=== PATIENT | male | born 1965 | race Caucasian/White ===

== ENCOUNTER 2023-04-14 14:25 | Outpatient (OUT) | payer OTHER, SELFPAY ==
--- NOTE | 2023-04-14 14:37 | XR_ITS ---
The [address] [address] Patient Name: GURVINDER CHAUDHRY MRN: [id number] date: 1965 Sex: M Assigned Patient Location: [facility] Current Patient Location: [facility] Accession/Order Number: [id number] Exam Date: 04/14/2023 14:37 Report Date: 04/14/2023 16:31 At the request of: ROS CM Procedure: XR ankle REJI min 3V EXAMINATION: XR ankle REJI min 3V, XR foot REJI min 3V HISTORY: BILATERAL ANKLE PAIN COMPARISON: No relevant comparison available. FINDINGS: RIGHT FINDINGS: BONES: No acute fracture or dislocation. Mild degenerative changes. Mild enthesopathic spurring plantar calcaneus SOFT TISSUES: Negative. No visible soft tissue swelling. OTHER: Negative. LEFT FINDINGS: BONES: No acute fracture or dislocation. Mild degenerative changes. Mild enthesopathic spurring plantar calcaneus SOFT TISSUES: Negative. No visible soft tissue swelling. OTHER: Negative. XR/XR ankle REJI min 3V IMPRESSION: RIGHT CONCLUSION: Mild degenerative changes LEFT CONCLUSION: Mild degenerative changes Electronically authenticated by: JOSIE DICKSON Date: 04/14/2023 16:31
--- NOTE | 2023-04-14 14:37 | XR_ITS ---
The [address] [address] Patient Name: GURVINDER CHAUDHRY MRN: [id number] date: 1965 Sex: M Assigned Patient Location: [facility] Current Patient Location: [facility] Accession/Order Number: [id number] Exam Date: 04/14/2023 14:37 Report Date: 04/14/2023 16:31 At the request of: ROS CM Procedure: XR foot REJI min 3V EXAMINATION: XR ankle REJI min 3V, XR foot REJI min 3V HISTORY: BILATERAL ANKLE PAIN COMPARISON: No relevant comparison available. FINDINGS: RIGHT FINDINGS: BONES: No acute fracture or dislocation. Mild degenerative changes. Mild enthesopathic spurring plantar calcaneus SOFT TISSUES: Negative. No visible soft tissue swelling. OTHER: Negative. LEFT FINDINGS: BONES: No acute fracture or dislocation. Mild degenerative changes. Mild enthesopathic spurring plantar calcaneus SOFT TISSUES: Negative. No visible soft tissue swelling. OTHER: Negative. XR/XR foot REJI min 3V IMPRESSION: RIGHT CONCLUSION: Mild degenerative changes LEFT CONCLUSION: Mild degenerative changes Electronically authenticated by: JOSIE DICKSON Date: 04/14/2023 16:31
== END 2023-04-14 14:26 | disposition home or self-care (01) ==
LOC: RAD 14:26
PROVIDERS: Visit Provider Podiatrist Foot & Ankle Surgery
DX: M25.572 Pain in left ankle and joints of left foot (principal); M25.571 Pain in right ankle and joints of right foot
CPT/HCPCS: 73610; 73630

== ENCOUNTER 2023-04-28 14:39 | Outpatient (OUT) | payer OTHER, SELFPAY ==
--- NOTE | 2023-04-28 15:27 | CT_ITS ---
The [address] [address] Patient Name: GURVINDER CAHUDHRY MRN: [facility]:[id number] date: 1965 Sex: M Assigned Patient Location: CT Current Patient Location: CT Accession/Order Number: [id number] Exam Date: 04/28/2023 15:32 Report Date: 04/29/2023 07:59 At the request of: ROS CM Procedure: CT ankle LT wo con EXAMINATION: CT ankle LT wo con HISTORY: Joint disorders, left ankle M25.872 COMPARISON: XR ankle bilateral 04/14/2023, CT ankle left 09/02/2021 TECHNIQUE: Multi-planar CT images were created without and/or with IV contrast according to examination type. Dose reduction techniques were achieved by using automated exposure control and/or adjustment of mA and/or kV according to patient size and/or use of iterative reconstruction technique. FINDINGS: BONES: No evidence of prior screw placement and removal within lateral malleolus. Tiny corticated ossification adjacent tip of lateral malleolus consistent with sequela of remote injury. No articular surface irregularity or significant joint space narrowing. Small subchondral cysts within the contiguous surfaces of the talus and medial cuneiform. SOFT TISSUES: Negative. No visible soft tissue swelling. EFFUSION: None visible. OTHER: Negative. CT/CT ankle LT wo con IMPRESSION: 1. Mild degenerative changes; grossly stable. 2. Stable remote surgical changes within lateral malleolus. Electronically authenticated by: SHERI ALEXANDRA Date: 04/29/2023 07:59
--- NOTE | 2023-04-28 15:27 | CT_ITS ---
[address] [address] Patient Name: GURVINDER CHAUDHRY MRN: [id number] date: 1965 Sex: M Assigned Patient Location: CT Current Patient Location: CT Accession/Order Number: [id number] Exam Date: 04/28/2023 15:32 Report Date: 04/29/2023 07:54 At the request of: ROS CM Procedure: CT ankle RT wo con EXAMINATION: CT ankle RT wo con HISTORY: Primary osteoarthritis, right ankle M19.072 ; chronic right ankle pain; surgery approximately 10 years ago COMPARISON: XR ankle bilateral 04/14/2023, CT ankle right 03/31/2021 TECHNIQUE: Multi-planar CT images were created without and/or with IV contrast according to examination type. Dose reduction techniques were achieved by using automated exposure control and/or adjustment of mA and/or kV according to patient size and/or use of iterative reconstruction technique. FINDINGS: BONES: Stable collection of small cysts within the lateral talar dome abutting the articular surface without appreciable disruption of the overlying articular surface. Subcortical cysts within tip of lateral malleolus and evidence of prior screw placement and removal. No fracture or dislocation. Tiny degenerative osteophyte along the anterior articular margin of the tibial plafond. Small corticated ossifications adjacent the tip of the medial malleolus favoring sequela of remote injury. SOFT TISSUES: Negative. No visible soft tissue swelling. EFFUSION: None visible. OTHER: Negative. CT/CT ankle RT wo con IMPRESSION: 1. Stable appearance of the talar dome subchondral cysts with possible prior repair of subchondral cyst. 2. Stable subcortical cysts and degenerative changes within lateral malleolus. 3. No acute bone abnormality. Electronically authenticated by: SHERI ALEXANDRA Date: 04/29/2023 07:54
== END 2023-04-28 14:40 | disposition home or self-care (01) ==
LOC: CT 14:40
PROVIDERS: PCP Family Medicine; Visit Provider Podiatrist Foot & Ankle Surgery
DX: M19.072 Primary osteoarthritis, left ankle and foot (principal); M19.071 Primary osteoarthritis, right ankle and foot; M25.872 Other specified joint disorders, left ankle and foot; R97.20 Elevated prostate specific antigen [PSA]; M25.871 Other specified joint disorders, right ankle and foot; M95.8 Other specified acquired deformities of musculoskeletal system; Z98.890 Other specified postprocedural states; M85.671 Other cyst of bone, right ankle and foot
CPT/HCPCS: 36415; 73700; 84153

== ENCOUNTER 2023-04-28 14:42 | Outpatient (OUT) | payer OTHER, SELFPAY ==
[2023-04-28 16:31] LABS: Prostate Specific Antigen Dx 6.75 ng/mL (<=4.00)
== END 2023-04-28 14:43 | disposition home or self-care (01) ==
LOC: LAB 14:43
PROVIDERS: PCP Family Medicine
DX: R97.20 Elevated prostate specific antigen [PSA] (principal)
CPT/HCPCS: 36415; 84153

== ENCOUNTER 2023-08-25 14:29 | Outpatient (OUT) | payer OTHER, SELFPAY ==
--- NOTE | 2023-08-25 15:21 | P.GSHP_ITS ---
History of Present Illness History of Present Illness Chief complaint: right ankle arthritis Narrative: Patient presents for preadmission testing. The patient reports right ankle pain. The patient states he's had multiple surgeries to both feet and ankles over the years and continues to have pain. He denies numbness, tingling, weakness, recent trauma or injury, or any other complaints. Review of Systems ROS Narrative REVIEW OF SYSTEMS: Negative except as stated in HPI, ten or more systems reviewed. Constitutional: No fever , chills, weakness ENT: No sore throat or epistaxis Cardiovascular: No edema, chest pain, palpitations, or activity intolerance Respiratory: No shortness of breath, cough, or wheezing Gastrointestinal: No abdominal pain, constipation, diarrhea, or vomiting Genitourinary: No dysuria or hematuria Neurological: No numbness, tingling, weakness, or headache Psychiatric: No mood changes [facility] Medical History (Updated 08/25/23 @ 15:20 by Tania Kinney NP) Impingement of right ankle joint ?M25.871 - Other specified joint disorders, right ankle and foot (ICD-10) Osteochondritis dissecans ?M93.20 - Osteochondritis dissecans of unspecified site (ICD-10) Ankle arthritis ?M19.079 - Primary osteoarthritis, unspecified ankle and foot (ICD-10) Migraine ?G43.909 - Migraine, unspecified, not intractable, without status migrainosus (ICD-10) Elevated PSA ?R97.20 - Elevated prostate specific antigen [PSA] (ICD-10) Kidney stones ?N20.0 - Calculus of kidney (ICD-10) High cholesterol ?E78.00 - Pure hypercholesterolemia, unspecified (ICD-10) Hypertension ?I10 - Essential (primary) hypertension (ICD-10) S/P extracorporeal shock wave therapy ?Z98.890 - Other specified postprocedural states (ICD-10) Prostate cancer (08/2023) ?C61 - Malignant neoplasm of prostate (ICD-10) Surgical History (Updated 08/25/23 @ 15:19 by Tania Kinney NP) Hx of prostate biopsy (~08/16/23) ?Z98.890 - Other specified postprocedural states (ICD-10) History of colonoscopy ?Z98.890 - Other specified postprocedural states (ICD-10) History of foot surgery ?Z98.890 - Other specified postprocedural states (ICD-10) History of ankle surgery ?Z98.890 - Other specified postprocedural states (ICD-10) Family History (Updated 08/25/23 @ 15:03 by Tania Kinney NP) Other Family history of hypertension Family history of stroke Social History (Updated 08/25/23 @ 14:58 by Tania Kinney NP) Within the past year, how often did you have a drink containing alcohol: 2-3 times a week Smoking status: Never smoker Non-prescribed substance use: denies use 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 Highest level of school completed/degree received: high school graduate Meds Home Medications and Allergies Home Medications Medication Instructions Recorded Confirmed Type allopurinol 100 mg tablet 100 mg PO DAILY 08/25/23 08/25/23 History aspirin 81 mg tablet,delayed 81 mg PO DAILY 08/25/23 08/25/23 History release (Adult Aspirin Regimen) cholecalciferol (vitamin D3) 25 1,000 unit PO DAILY 08/25/23 08/25/23 History mcg (1,000 unit) capsule lisinopril 20 1 tab PO DAILY 08/25/23 08/25/23 History mg-hydrochlorothiazide 25 mg tablet metoprolol succinate 50 mg 50 mg PO DAILY 08/25/23 08/25/23 History tablet,extended release 24 hr pitavastatin calcium 4 mg tablet 4 mg PO DAILY 08/25/23 08/25/23 History Allergies Allergy/AdvReac Type Severity Reaction Status Date / Time cephalexin [From Keflex] Allergy Hives Verified 08/25/23 14:54 Exam Narrative Exam Narrative: Constitutional: Awake, alert, comfortable, well-appearing, nontoxic, interactive, vital signs as charted Head: Normocephalic, atraumatic Neck: Supple, normal appearance, normal range of motion, no meningeal signs, no lymphadenopathy Respiratory: No respiratory distress, breath sounds clear Cardiovascular: Regular rate and rhythm, strong and regular heart tones Musculoskeletal: Diffuse right ankle tenderness with palpation, limited range of motion due to pain, good capillary refill, sensation intact Skin: No rashes or induration, no lesions, only visible skin inspected Neuro: No neurological deficits, normal sensation Psychiatric: Oriented ?3, normal affect Assessment and Plan Assessment and Plan (1) Impingement of right ankle joint: (2) Osteochondritis dissecans: (3) Ankle arthritis: Plan Right total talus replacement with 3-D printed talus, secondary ankle ligament repair, EPF scheduled with Dr. Caldera 09/06/2023.
[2023-08-25 15:28] LABS: Bilirubin Urine NEGATIVE (NEGATIVE); Blood Urine NEGATIVE (NEGATIVE); Clarity Urine CLEAR (CLEAR); Color Urine LT. YELLOW (YELLOW); Glucose Urine UA NEGATIVE (NEGATIVE); Ketones Urine NEGATIVE (NEGATIVE); Leukocyte Esterase Urine NEGATIVE (NEGATIVE); Nitrite Urine NEGATIVE (NEGATIVE); Protein Urine NEGATIVE (NEG/TRACE); Urobilinogen Urine 0.2 EU/dL (0.2-1.0); pH Urine 6.5 (5.0-9.0)
[2023-08-25 15:36] LABS: Anion Gap 10.1; Calcium 8.9 mg/dL (8.5-10.1); Carbon Dioxide 30.6 mmol/L (21.0-32.0); Chloride 102 mmol/L (98-107); Estimated GFR (African America >60 (>=60); Estimated GFR (Non-African Ame >60 (>=60); Glucose 139 mg/dL (74-106); Potassium 3.7 mmol/L (3.5-5.1); Sodium 139 mmol/L (136-145)
== END 2023-08-25 14:30 | disposition home or self-care (01) ==
LOC: PST 14:29
PROVIDERS: PCP Family Medicine; Visit Provider Podiatrist Foot & Ankle Surgery
DX: Z01.812 Encounter for preprocedural laboratory examination (principal); M19.071 Primary osteoarthritis, right ankle and foot; M25.871 Other specified joint disorders, right ankle and foot
CPT/HCPCS: 80048; 81003; 85610; 85730; 87081; 87086; G0463

== ENCOUNTER 2023-09-10 11:35 | Observation (INO) | payer OTHER, SELFPAY ==
[2023-08-25 15:14] VITALS: BP 139/81; PULSE 88; RESP 20; TEMP 36.2; O2SAT 96; BMI 34.8
[2023-09-10] VITALS (28 sets, daily range): BP systolic 112–145; BP diastolic 69–93; PULSE 73–102; RESP 5–20; TEMP 35.9–37; O2SAT 88–97; BMI 33.5; BMI 76.9
--- NOTE | 2023-09-10 | FL_ITS ---
[address] [address] Patient Name: GURVINDER CHAUDHRY MRN: [id number] date: 1965 Sex: M [facility]igned [facility] Current Patient Location: [facility] Accession/Order Number: [id number] Exam Date: 09/10/2023 08:15 Report Date: 09/10/2023 11:16 At the request of: ROS CM Procedure: FL fluoroscopy <1hr NON-READ EXAM: FL fluoroscopy <1hr NON-READ HISTORY: Right ankle reconstruction TECHNIQUE: FINDINGS: Please see Operative Report. Electronically authenticated by: RADIOLOGIST NO Date: 09/10/2023 11:16
--- OUTSIDE RECORDS SUMMARY | 2023-09-10 06:06 | XMS_ITS | CCD ---
Author Name Unknown Address [address] [place] [address] Organization [facility] Care Team Providers Care Etcher Photoengraving Name Role Phone DEV CH Unavailable Unavailable QUIN ROBISON Unavailable Unavailabl e PHYSICIAN, DEFAULT Unavailable Unavailable PHYSICIAN, DEFAULT Unavailable Unavailable DEV CH Unavailable Unavailable ROS CM Admitting Unavailable HIGHLANDER, ROS Smith Attending Unavailable ROS CM Consulting Unavailable ROS CM Admitting Unavailable TOI, ROS Smith Attending Unavailable JAIR CARPENTER Admitting Unavailable JAIR CARPENTER Attending Unavailable DEV CH Primary Care Unavailable MISSAEL TEJADA Attending Unavailable MISSAEL TEJADA Admitting Unavailable Eli Santos Attending Unavailable Dev Ch Primary Care Unavailable Eisenstein, Eli Admitting Unavailable EisensteinEli Attending Unavailable Dev Ch Primary Care Unavailable Eisenstein, Eli Admitting Unavailable Dev Ch Primary Care Unavailable Allergies Allergy Classification Reported Allergen(s) Allergy Type Date of Onset Reaction(s) Facility (3 sources) cephalexin; Translations: [Keflex] Drug Allergy 09-20-2009 AOF [facility] Repository Problems Active Problems Problem Classification Problem Date Documented Da te Episodic/Chronic Other screening for suspected conditions (not mental disorders or infectious disease) (1 source) Elevated prostate specific antigen [PSA]; Translations: [Elevated prostate specific antigen (PSA)] Onset: 08-16-2023 Episodic Past or Other Problems Problem Classification Problem Date Documented Da te Episodic/Chronic Headache, including migraine (1 source) Headache; Translations: [Headache] Onset: 08-28-2017 Episodic Results Test Name Value Interpretation Reference Range Facility Consent Formson 09-06-2023 Consent Forms [id number]#1.00OTG [facility] Stress Teston 09-06-2023 Stress Test [id number]#1.00OTG [facility] NM Myocardial Spect Multi Re st/Stresson 09-03-2023 NM Myocardial Spect Multi Rest/Stress EXAMINATION: NM Myocardial Spect Multi Rest/Stress HISTORY: Abnormal electrocardiogram [ECG] [EKG] COMPARISON: No relevant comparison available. TECHNIQUE: Imaging obtained approximately one hour post radiopharmaceutical administration. FINDINGS: End diastolic volume: 93 mL End-systolic volume: 25 mL Left ventricular ejection fraction: 73% Transient ischemic dilation ratio: 1.11 Planar imaging demonstrates a small area of mildly decreased uptake identified in the basal inferioseptal segment on stress images, stable on rest images IMPRESSION: Small fixed defect with no evidence of reversible ischemia Exercise test results are dictated separately Final Dictated by: Obie Garcia MD, V. Dictated DT/TM: 09/03/23 11:40 Signed (Electronic Signature): Obie Garcia MD, V. 09/03/23 11:43 a Technologist: [facility] Provider Orderson 09-03-2023 Provider Orders [id number]#1.00OT [facility] Provider Orderson 09-02-2023 Provider Orders [id number]#1.00OTGT [facility] Provider Orders [id number]#1.00OT [facility] Consent Formson 08-24-2023 Consent Forms [id number]#1.00OTGT [facility] Surgical Pathology Reporton 08-16-2023 Surgical Pathology Report (NOTE) Path Number: [id number] -- Diagnosis -- A. PROSTATE, LEFT APEX LATERAL, NEEDLE BIOPSY: Benign prostate tissue. B. PROSTATE, AREA OF INTEREST, NEEDLE BIOPSY: Benign prostate tissue. C. PROSTATE, RIGHT BASE MEDIAL, NEEDLE BIOPSY: Benign prostate tissue. D. 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 E. PROSTATE, RIGHT MID MEDIAL, NEEDLE BIOPSY: Benign prostate tissue. F. PROSTATE, RIGHT MID LATERAL, NEEDLE BIOPSY: Benign prostate tissue. G. PROSTATE, RIGHT APEX MEDIAL, NEEDLE BIOPSY: Benign prostate tissue. H. PROSTATE, RIGHT APEX LATERAL, NEEDLE BIOPSY: Benign prostate tissue. I. PROSTATE, LEFT BASE MEDIAL, NEEDLE BIOPSY: Benign prostate tissue. J. PROSTATE, LEFT BASE LATERAL, NEEDLE BIOPSY: Benign prostate tissue. K. PROSTATE, LEFT MID MEDIAL, NEEDLE BIOPSY: Benign prostate tissue. L. PROSTATE, LEFT MID LATERAL, NEEDLE BIOPSY: Benign prostate tissue. M. PROSTATE, LEFT APEX MEDIAL, NEEDLE BIOPSY: Benign prostate tissue. -- Diagnosis Comment -- Part D is reviewed by a second Pathologist who concurs with the diagnosis (OSMANY). Riccardo Hutson. Electronically Signed Out 08/19/2023 Clinical Information Pre-op Diagnosis: ELEVATED PSA Operative Findings: PROSTATE BIOPSY X13 Operation Performed: PROSTATE BIOPSY FUSION kb Source of Specimen A: LEFT APEX LATERAL B: AREA OF INTEREST C: RIGHT BASE MEDIAL D: RIGHT BASE LATERAL E: RIGHT MID MEDIAL F: RIGHT MID LATERAL G: RIGHT APEX MEDIAL H: RIGHT APEX LATERAL I: LEFT BASE MEDIAL J: LEFT BASE LATERAL K: LEFT MID MEDIAL L: LEFT MID LATERAL M: LEFT APEX MEDIAL Gross Description GURVINDER CHAUDHRY, PROSTATE BIOPSIES All specimens are received in formalin on sponges and are estrada-white needle core biopsies less than < 0.1 cm in diameter with the following lengths: A. LEFT APEX LATERAL One core, 1.4 cm in length. Entirely 1cs. B. AREA OF INTEREST Three cores, 0.5, 1.1 and 1.6 cm in length. Entirely 2cs. C. RIGHT BASE MEDIAL One core, 1.8 cm in length. Entirely 1cs. D. RIGHT BASE LATERAL One core, 1.3 cm in length. Entirely 1cs. E. RIGHT MID MEDIAL One core, 1.5 cm in length. Entirely 1cs. F. RIGHT MID LATERAL One core, 1.7 cm in length. Entirely 1cs. G. RIGHT APEX MEDIAL One core, 1.7 cm in length. Entirely 1cs. H. RIGHT APEX LATERAL One core, 1.3 cm in length. Entirely 1cs. I. LEFT BASE MEDIAL One core, 1.5 cm in length. Entirely 1cs. J. LEFT BASE LATERAL One core, 1.3 cm in length. Entirely 1cs. K. LEFT MID MEDIAL One core, 1.7 cm in length. Entirely 1cs. L. LEFT MID LATERAL One core, 1.5 cm in length. Entirely 1cs. M. LEFT APEX MEDIAL One core, 2.2 cm in length. Entirely 1cs. jj tm SLS/kb2:08/17/2023 Microscopic Description A-M. Multiple GLORY-stained levels of each block of each part reviewed. Microscopic evaluation performed. Multiplex immunohistochemistry is performed to evaluate atypical small acinar proliferations in parts D and L. In part D, the atypical glands lack staining for basal epithelial markers, and are strongly positive for racemase. In part L, all glands maintain an intact basal epithelial marker that is positive for HMWCK and p63. Glands are negative for racemase. Controls are adequate. Processing Lab: [facility] [address] [place] [address] Interpretation Performed at [facility] [address] [place] [address] SURGICAL PATHOLOGY CONSULTATION Patient Name: GURVINDER CHAUDHRY [facility] Rec: [id number] [facility] ANATOMIC PATHOLOGY [address]. [place], [place] [address] Normal [facility] Standardon 07-15-2023 eGFR Non AA >60 Invalid Interpretation Code [facility] Comment on above: Performed By: #### 1 [id number], 3458423, [id number], 5771784, 5105925, 8683388, 8863140, 4455395 #### [facility] (DEFAULT) [address] [place] [address] 18870 eGFR AA >60 Invalid Interpretation Code [facility] Comment on above: Performed By: #### 1 [id number], 5300073, [id number], 1370766, 5942069, 6041380, 5638736, 7713387 #### [facility] (DEFAULT) [address] [place] [address] 49351 Albumin [Mass/Vol] 4.5 g/dL Normal 3.5-5.0 [facility] Comment on above: Performed By: #### 1 [id number], 5335960, 1069959126, 2523314, 5904047, 7991903, 9262290, 9780319 #### [facility] (DEFAULT) [address] [place] [address] 43929 Alk Phos 44 IU/L Normal 32-91 [facility] Comment on above: Performed By: #### 1 [id number], 5482420, [id number], 9567554, 3341802, 3409885, 5051541, 7566325 #### [facility] (DEFAULT) [address] [place] [address] 10943 ALT [Catalytic activity/Vol] 35.0 U/L Normal 17.0-63.0 [facility] Comment on above: Performed By: #### 1 [id number], 1697615, 2240688936, 0017676, 7288635, 4466042, 7084198, 8197334 #### [facility] (DEFAULT) [address] [place] [address] 11846 AST [Catalytic activity/Vol] 35 U/L Normal 15-41 [facility] Comment on above: Performed By: #### 1 [id number], 0765118, 1211586055, 1946614, 5096741, 5947435, 2739968, 2194624 #### [facility] (DEFAULT) [address] [place] [address] 36270 Bili Total 0.7 mg/dL Normal 0.3-1.2 [facility] Comment on above: Performed By: #### 1 [id number], 9547808, 9683656231, 6452468, 3596369, 9223253, 3026118, 6549516 #### [facility] (DEFAULT) [address] [place] [address] 12817 Calcium [Mass/Vol] 9.4 mg/dL Normal 8.9-10.3 [facility] Comment on above: Performed By: #### 1 [id number], 7963042, 2153755372, 3708860, 3114344, 7544237, 4497536, 4521723 #### [facility] (DEFAULT) [address] [place] [address] 55335 Chloride [Moles/Vol] 102 mmol/L Normal 101-111 [facility] Comment on above: Performed By: #### 1 [id number], 0710810, 8685979571, 7459932, 3210108, 7901562, 4985409, 2097480 #### [facility] (DEFAULT) [address] [place] [address] 64803 CO2 [Moles/Vol] 30 mmol/L Normal 21-32 [facility] Comment on above: Performed By: #### 1 [id number], 7930086, 0233129035, 4015940, 5454987, 8942738, 6215902, 5052956 #### [facility] (DEFAULT) [address] [place] [address] 28692 Creatinine [Mass/Vol] 1.15 mg/dL Normal 0.90-1.30 [facility] Comment on above: Performed By: #### 1 [id number], 5055604, 4226347480, 0839741, 9871416, 8234734, 1022912, 7209713 #### [facility] (DEFAULT) [address] [place] [address] 12720 Glucose [Mass/Vol] 88.0 mg/dL Normal 74.0-118.0 [facility] Comment on above: Performed By: #### 1 [id number], 7450655, 1195476317, 5962935, 2353071, 8111589, 0677374, 5981078 #### [facility] (DEFAULT) [address] [place] [address] 80526 Potassium [Moles/Vol] 4.1 mmol/L Normal 3.6-5.1 [facility] Comment on above: Performed By: #### 1 [id number], 6511118, 1467165756, 2336230, 2207177, 7378222, 5517068, 4431181 #### [facility] (DEFAULT) [address] [place] [address] 47571 Protein [Mass/Vol] 7.1 g/dL Normal 6.5-8.1 [facility] Comment on above: Performed By: #### 1 [id number], 0622940, 6042067402, 4213805, 6330157, 8938785, 9084470, 3083423 #### [facility] (DEFAULT) [address] [place] [address] 95051 Sodium [Moles/Vol] 140.0 mmol/L Normal 136.0-144.0 [facility] Comment on above: Performed By: #### 1 601503906, 4685600, 0370499840, 7529201, 3295324, 6754741, 5601874, 0191878 #### [facility] (DEFAULT) [address] [place] [address] 21247 Urea nitrogen [Mass/Vol] 25 mg/dL Normal 8-26 [facility] Comment on above: Performed By: #### 1 590395364, 9147570, 8269456651, 9999421, 0807445, 5063523, 6442757, 5773364 #### [facility] (DEFAULT) [address] [place] [address] 70922 Albumin/Globulin [Mass ratio] 1.7 {ratio} Normal 1.4-2.6 [facility] Comment on above: Performed By: #### 1 [id number], 6267452, 7518459142, 5252697, 5692275, 6130974, 8301194, 9303606 #### [facility] (DEFAULT) [address] [place] [address] 24661 Anion gap [Moles/Vol] 12.1 mmol/L Normal 5.0-19.0 [facility] Comment on above: Performed By: #### 1 758284792, 5741568, 4337538584, 5824978, 3560160, 5256597, 7392611, 5374349 #### [facility] (DEFAULT) [address] [place] [address] 16972 Globulin (S) [Mass/Vol] 2.6 g/dL Normal 1.5-4.3 [facility] Comment on above: Performed By: #### 1 374842087, 5825506, 4893315641, 0816321, 5217011, 8068953, 6262747, 5328925 #### [facility] (DEFAULT) [address] [place] [address] Osmolality 283 mOsm/L Invalid Interpretation Code [facility] Comment on above: Performed By: #### 1 [id number], 2219738, 5889066172, 5491133, 0390346, 5296425, 1141233, 9097656 #### [facility] (DEFAULT) [address] [place] [address] Urea nitrogen/Creatini ne [Mass ratio] 21.7 mg/mg High 4.6-16.2 [facility] Comment on above: Performed By: #### 1 405494758, 2712503, 9943169187, 8712125, 6757435, 6748730, 6766232, 0663454 #### [facility] (DEFAULT) [address] [place] [address] GGTon 07-15-2023 Gamma glutamyl transferase [Catalytic activity/Vol] 22.0 U/L Normal 7.0-50.0 [facility] Comment on above: Performed By: #### 1 [id number], 3008532, 5059692625, 1971073, 1234146, 5226646, 4387966, 1450602 #### [facility] (DEFAULT) [address] [place] [address] 43047 Iron Levelon 07-15-2023 Iron [Mass/Vol] 114.0 ug/dL Normal 45.0-182.0 [facility] Comment on above: Performed By: #### 1 [id number], 7642388, 3731004935, 3717668, 7317651, 3109741, 7606543, 0409025 #### [facility] (DEFAULT) [address] [place] [address] 97636 LDHon 07-15-2023 LDH 257.0 IU/L High 98.0-192.0 [facility] Comment on above: Performed By: #### 1 355737897, 1005640, 6502864269, 4740357, 7916240, 2089186, 2547908, 7564267 #### [facility] (DEFAULT) [address] [place] [address] 97519 Lipid Panel Standardon 07-15 Cholesterol [Mass/Vol] 188.0 mg/dL Normal 66.0-200.0 [facility] Comment on above: Performed By: #### 1 [id number], 5752203, 0602092054, 9143727, 1563529, 0373974, 7682303, 0222546 #### [facility] (DEFAULT) [address] [place] [address] 54748 Cholesterol in HDL [Mass/Vol] 45 mg/dL Normal 40-71 [facility] Comment on above: Performed By: #### 1 [id number], 1119921, 0134579367, 6177991, 3990673, 3266114, 5454899, 3819437 #### [facility] (DEFAULT) [address] [place] [address] 62977 Triglyceride [Mass/Vol] 130.0 mg/dL Normal 0.0-150.0 [facility] Comment on above: Performed By: #### 1 179451293, 0395040, 9428755717, 2299614, 0243567, 2035259, 9658522, 2183042 #### [facility] (DEFAULT) [address] [place] [address] 85896 Cholesterol in LDL [Mass/Vol] 117 mg/dL High 1-100 [facility] Comment on above: Performed By: #### 1 100828487, 4319226, 3250727000, 9772307, 1165560, 2786645, 3714799, 3553518 #### [facility] (DEFAULT) [address] [place] [address] 30536 Cholesterol.total /Cholesterol in HDL [Mass ratio] 4.1 {ratio} Normal 0.0-4.5 [facility] Comment on above: Performed By: #### 1 549529496, 0326406, 3265719327, 8776719, 5710980, 9461039, 1255996, 5891752 #### [facility] (DEFAULT) [address] [place] [address] VLDL. 26 mg/dL Normal 5-40 [facility] Comment on above: Performed By: #### 1 567607839, 4899041, 3075751956, 5992121, 7213560, 7158663, 7028715, 5038086 #### [facility] (DEFAULT) [address] [place] [address] 81088 PSA Screenon 07-15-2023 PSA Screen 5.97 ng/mL High 0.00-4.00 [facility] Comment on above: Result Comment: PR Slides DxI GridAnts Clinical System (Chemiluminescence) Values obtained with different assay methods or kits cannot be used interchangeably. Results cannot be interpreted as absolute evidence of the presence or absence of malignant disease. Performed By: #### 1 [id number], 0594980, 7042921569, 8470455, 7058007, 6381252, 3685922, 6341474 #### [facility] (DEFAULT) [address] [place] [address] 79857 Phoson 07-15-2023 Phosphate [Mass/Vol] 3.2 mg/dL Normal 2.5-4.6 [facility] Comment on above: Performed By: #### 1 227084774, 3414654, 1147921918, 2901309, 3874647, 0724586, 7456069, 0735791 #### [facility] (DEFAULT) [address] [place] [address] 19988 Uric Acidon 07-15-2023 Urate [Mass/Vol] 6.0 mg/dL Normal 4.8-8.7 [facility] Comment on above: Performed By: #### 1 [id number], 4580620, 5204056332, 7992042, 5499953, 1078706, 5800060, 7505313 #### [facility] (DEFAULT) [address] [place] [address] 21828 Encounters Encounter Date Encounter Type Care Provider Facility Start: 09-03-2023 End: 09-08-2023 [facility] [place] Facility:[facility] Start: 09-02-2023 End: 09-03-2023 [facility] [place] Facility:[facility] Start: 08-16-2023 End: 08-16-2023 ambulatory DEV Khan [facility] Start: 07-20-2023 End: 07-21-2023 ambulatory Dev Ch Facility:[facility] Start: 12-01-2022 ambulatory JAIR Pandey y:H1 Start: 07-16-2022 ambulatory ROS CM Faci lity:H1 Start: 01-28-2022 ambulatory ROS [facility] Faci lity:H1 Start: 08-28-2017 End: 08-28-2017 Emergency department patient visit DEV CH [facility] Start: 03-02-2017 End: 03-03-2017 Ambulatory DEFAULT PHYSICIAN Facility:[facility] Payers Date Payer Category Payer Unknown [id number] 1965 Unknown [id number] 2.16.84 [id number] 1965 Unknown [id number] 2.16.84 [id number] 1965 Unknown [id number] 2.16.84 [id number] 1967 Unknown [id number] 2.16.8 [id number] 1967 Unknown [id number] 2.16.8 [id number] 1967 Unknown [id number] 2.16.8 [id number] 1959 Unknown [id number] Unknown Summary Purpose Family History No Family History Records FoundNo Family History Records FoundNo Family History Records FoundNo Family History Records FoundNo Family History Records Found Advance Directives No Advanced Directives Records FoundNo Advanced Directives Records FoundNo Advanced Directives Records FoundNo Advanced Directives Records FoundNo Advanced Directives Records Found Additional Source Comments (unrecognized sect ion and content) No Status Records FoundNo Status Records FoundNo Status Records FoundNo Status Records FoundNo Status Records Found INFORMATION SOURCE (unrecogn ized section and content) DATE CREATED AUTHOR 03/15/2018 [facility] DATE CREATED AUTHOR AUTHOR'S ORGANIZ ATION 03/16/2018 [facility] DATE CREATED AUTHOR AUTHOR'S ORGANIZ ATION 11/28/2022 [facility] DATE CREATED AUTHOR AUTHOR'S ORGANIZ ATION 08/23/2023 [facility] DATE CREATED AUTHOR AUTHOR'S ORGANIZ ATION 09/07/2023 [facility] FOR RECORDS PERTAINING TO PATIENTS WHO ARE OR HAVE BEEN ENROLLED IN A CHEMICAL DEPENDENCY/SUBSTANCEABUSE PROGRAM, SOME INFORMATION MAY BE OMITTED. This clinical summary was aggregated from multiple sources. Caution should be exercised in using it in the provision of clinical care. This summary normalizes information from multiple sources, and as a consequence, information in this document may materially change the coding, format and clinical context of patient data. In addition, data may be omitted in some cases. CLINICAL DECISIONS SHOULD BE BASED ON THE PRIMARY CLINICAL RECORDS. [employer] provides no warranty or guarantee of the accuracy or completeness of information in this document.
[2023-09-10 06:13] LABS: Basophils Absolute Auto 0.1 10^3/uL (0.0-0.1); Basophils Percent Auto 1.7 % (0.2-2.0); Eosinophils Absolute Auto 0.1 10^3/uL (0.0-0.7); Eosinophils Percent Auto 2.7 % (0.9-7.0); Hematocrit 43.4 % (42.0-54.0); Hemoglobin 14.5 g/dL (14.0-18.0); Immature Granulocytes Abs Auto 0.01 10^3/uL (0.00-0.03); Immature Granulocytes Pct Auto 0.2 % (0.0-0.5); Lymphocytes Absolute Auto 1.4 10^3/uL (1.2-3.8); Mean Corpuscular HGB Conc 33.4 g/dL (29.9-35.2); Mean Corpuscular Volume 89.7 fL (80.0-94.0); Monocytes Absolute Auto 0.6 10^3/uL (0.3-0.8); Monocytes Percent Auto 14.4 % (1.7-12.0); Neutrophils Absolute Auto 1.9 10^3/uL (1.4-6.5); Platelet Count 218 10^3/uL (150-450); Red Blood Count 4.84 10^6/uL (4.70-6.10); Red Cell Distribution Width 13.6 % (11.0-15.0); White Blood Count 4.1 10^3/uL (4.0-11.0)
[2023-09-10 06:25] LABS: Glucometer 93 mg/dL (74-106)
[2023-09-10] MEDS: LACTATED RINGER'S SOLUTION 1,000 ML 50 ML IV ×2 (06:49→08:40)
[2023-09-10] MEDS: CLINDAMYCIN PHOSPHATE/D5W 900 MG/50 ML PIGGYBACK 100 MG IV (07:38)
--- NOTE | 2023-09-10 09:35 | P.ORON_ITS ---
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 Specifically of his right he is undergone multiple arthroscopy, osteochondral defect repair and lateral ankle stabilization. Overall he received benefit from the procedures however his progress then has regressed and continued to have pain and dysfunction associated with his right ankle more than his left. He is also had chronic plantar heel pain which is been recalcitrant to nonsurgical treatment. His left ankle also has osteochondral defect but has not been as painful as his right. A recent visit he will wish to proceed with further surgical intervention incision has history were discussed revision options which included repeat arthroscopy and osteotomes defect repair which was according to him not ideal given that his progress previously has been temporary. he is interested in ankle replacement and advanced imaging demonstrated disease localized to the talus with little arthritic changes to the distal tibia therefore I recommended talus replacement with three printed device and I reviewed the potential risks and benefits which included progression of his arthritis and need for surgical revision which could include fusion versus revision replacement. After much thought patient wished to proceed with total talus replacement, endoscopic plantar fasciotomy but also inquired about bone ma rrow aspirate concentrate/stem cells and platelet rich plasma for the contralateral ankle which I believe to be a good option given his severity of symptoms on his left. further CT scan obtained on his right ankle demonstrated multiple cystic components predominantly of the lateral talar dome also of the body of the talus and medial talar shoulder. There was mixed sclerotic changes as well which is concerning for avascular necrosis INTRA-OPERATIVE FINDINGS: large cystic component with mixed sclerotic changes predominantly over the lateral talar body. bone quality of the lateral talar body was significantly more dense and hard then the neck and head and most of the central body. Cartilage of the distal tibia, calcaneus and navicular was intact without degenerative changes therefore degenerative changes were localized only to the talar dome. It was determined that the nominal-sized talus not only fit well but also provided intrinsic stability and range of motion between the sizes of implant was similar. There is reduced ankle joint dorsiflexion noted therefore posterior calf muscle lengthening was performed which enhanced range of motion. once the implant was in there was less than two degrees of valgus and four degrees of varus with stress examination. Anterior drawer was stable once capsule was repaired. The plantar fascia was thickened and scarred consistent with chronic plantar fasciitis. PROCEDURE IN DETAIL: Patient was identified in pre op and consent was reviewed. Correct side and site were identified and marked. Pre-op antibiotics were started. Patient was brought to OR suite and place on table in a supine position. General anesthesia was administered. Tourniquet applied. Operative extremity was prepped and draped in usual sterile fashion. Formal time-out was performed. Stab incision was created just medial to the tibial tubercle blunt dissection down to bone was performed on the RIGHT. A trochar was placed into the proximal tibia metaphysis and tochar was removed. Then 60 mL of bone marrow aspirate was obtained. The BMA was then passed off the field to be concentrated with use of a centrifuge. 60 mL of intravenous blood was obtained by anesthesia and also concentrated for platelet rich plasma for later use. The stab incision was closed with nonabsorbable skin suture. The foot and ankle were exsanguinated and tourniquet was inflated. Stab incision over the medial aspect of the in-step at the glabrous skin junction was used followed by blunt dissection and the medial band of the plantar fascia was identified. Trochar and cannula were then placed medial to lateral. A lateral stab incision was made to allow passage of the trochar and cannula. Camera was inserted into the lateral portal and a hook blade was placed into the medial portal. 50% of the plantar fascia was released and healthy muscle was noted. The site was flushed with saline and instrumentation was removed. Closure with nylon suture was then undertaken. Anterior extensile incision between the tibialis anterior and extensor hallucis longus tendon was performed. All bleeders were coagulated. Full-thickness dissection down to the ankle and talonavicular joints was performed. Medial and lateral flaps were raised to expose the talus. An osteotomy of the talar neck was performed with sagittal saw and the talar neck was removed and passed back table. Then the talar neck was resected utilizing a Givens elevator and use of a fifteen blade to resect. Ligamentous structures. The talar head was then passed the back table. Multiple vertical osteotomies were then performed with an osteotome of the talar body which was resected with a rongeur and passed back table. Surgical site was irrigated with copious sterile saline and Irresept multiple times to ensure all aspects of the talus was removed. Meticulous dissection was performed throughout the talar resection to ensure preservation of all ligamentous and tendinous structures connecting the tibia and fibula to the calcaneus and navicular. A trial for talus replacement was then placed into the surgical site and range of motion was evaluated under fluoroscopy. Stability testing was also performed and noted the ankle be stable in varus and valgus and there is mild instability in anterior drawer. A longitudinal incision over the medial aspect of the calf two finger breadths posterior to the posterior aspect of tibia was performed. Combination sharp and blunt dissection with all bleeders being coagulated gained access to the gastrocnemius aponeurosis. Once the aponeurosis was isolated a speculum was inserted from the medial to lateral position just superficial to the aponeurosis. The speculum allowed full visualization of the aponeurosis and the foot was held in maximal dorsiflexed position. A fifteen blade was used to transversely incise the gastrocnemius fascia to two separate location (one proximal and one distal) followed by release of the soleus fascia. 10 degrees of ankle joint dorsiflexion was obtained. The area was flushed with copious sterile saline and skin was closed in layers. The anterior surgical site was then irrigated once more and the final talar implant (nominal size) was implanted by manual distraction from the heel with slight inversion. Surgical site was irrigated with copious sterile saline and Irresept. the capsule was then closed taking care to cover the tibialis anterior tendon. Stability testing and anterior drawer was tested again and was noted to be substantially improved and stable. platelet poor plasma was sprayed onto the anterior ankle incision. The anterior incision was closed in layers and the tourniquet was dropped with a prompt hyperemic response. A dry sterile dressing consisting of Xeroform on the incisions followed by 4 x 4 gauze, ABDs, and Kerlix were applied. Multiple layers of cast padding were then applied to ensure all bony prominences were well-padded. a layer of lex wraps were then applied followed by additional layers of cast padding. A plaster posterior splint was then applied which was held in place by Lex wraps. Capillary refill time to all digits was evaluated and had appropriate response. once the drapes were removed the left ankle was prepped with Betadine and alcohol then 3 mL of bone marrow aspirate concentrate was injected into the left tibiotalar joint while the PRP was injected into the left lateral ankle soft tissues and ankle joint. Injection site was dressed with a Band-Aid. POSTOPERATIVE PLAN: Transfer to med/surg under hospitalist's care NWB operative foot/ankle Ice and elevation Reyna-op antibiotics, multimodal pain medication and DVT prophylaxis ordered Consults: physical therapy & social welfare research worker Estimated LOS 2-3 nights Will follow *NWB x 3 weeks Implants: [id number] nominal sized patient specific, 3D printed total talus Anesthesia: regional and General-LMA Surgeon: Kyler Caldera Welder Plastic: Kush Hatfield Estimated blood loss (mL): 150 Pathology: other (Talar head, neck and body to pathology) Condition: stable Disposition: PACU
--- NOTE | 2023-09-10 10:28 | XR_ITS ---
The [address] [address] Patient Name: GURVINDER CHAUDHRY MRN: [id number] date: 1965 Sex: M Assigned Patient Location: [facility] Current Patient Location: [facility] Accession/Order Number: [id number] Exam Date: 09/10/2023 10:55 Report Date: 09/10/2023 11:30 At the request of: HALEIGH MORTON Procedure: XR ankle RT min 3V EXAM: XR ankle RT min 3V, XR foot RT min 3V HISTORY: postop xr COMPARISON: Bilaterally: Bilateral foot studies dated 04/14/2023 TECHNIQUE: 3 views of the right ankle were obtained. FINDINGS: There is right talus prosthesis which appears unremarkably positioned. Mild narrowing of the ankle joint superiorly. Small plantar calcaneal spur. Partial plaster cast noted posteriorly. Mild soft tissue swelling anteriorly. Small amount of soft tissue air anteriorly compatible with recent surgery. No definite acute fracture or dislocation. TECHNIQUE: 3 views of the right foot were obtained. FINDINGS: Partial plaster cast noted posteriorly. Small plantar calcaneal spur. Talus prosthesis unremarkably positioned. No definite acute fracture or dislocation. Mild soft tissue swelling proximally. XR/XR ankle RT min 3V IMPRESSION: Right ankle study demonstrates grossly unremarkable postoperative changes. Right foot study demonstrates grossly unremarkable postoperative changes. Follow up as needed. Electronically authenticated by: SUZANNE CHAUHAN Date: 09/10/2023 11:30
--- NOTE | 2023-09-10 10:28 | XR_ITS ---
The [address] [address] Patient Name: GURVINDER CHAUDHRY MRN: [id number] date: 1965 Sex: M Assigned Patient Location: [facility] Current Patient Location: [facility] Accession/Order Number: [id number] Exam Date: 09/10/2023 10:55 Report Date: 09/10/2023 11:30 At the request of: HALEIGH MORTON Procedure: XR foot RT min 3V EXAM: XR ankle RT min 3V, XR foot RT min 3V HISTORY: postop xr COMPARISON: Bilaterally: Bilateral foot studies dated 04/14/2023 TECHNIQUE: 3 views of the right ankle were obtained. FINDINGS: There is right talus prosthesis which appears unremarkably positioned. Mild narrowing of the ankle joint superiorly. Small plantar calcaneal spur. Partial plaster cast noted posteriorly. Mild soft tissue swelling anteriorly. Small amount of soft tissue air anteriorly compatible with recent surgery. No definite acute fracture or dislocation. TECHNIQUE: 3 views of the right foot were obtained. FINDINGS: Partial plaster cast noted posteriorly. Small plantar calcaneal spur. Talus prosthesis unremarkably positioned. No definite acute fracture or dislocation. Mild soft tissue swelling proximally. XR/XR foot RT min 3V IMPRESSION: Right ankle study demonstrates grossly unremarkable postoperative changes. Right foot study demonstrates grossly unremarkable postoperative changes. Follow up as needed. Electronically authenticated by: SUZANNE CHAUHAN Date: 09/10/2023 11:30
[2023-09-10] MEDS: HYDROMORPHONE HCL 0.5 MG/0.5 ML SYRINGE IV ×3 (10:29→10:45)
[2023-09-10] MEDS: OXYCODONE HCL/ACETAMINOPHEN 5MG/325MG 1 TAB PO (10:50)
[2023-09-10] MEDS: MEPERIDINE HCL/PF 25 MG/ML VIAL IV (11:05)
--- NOTE | 2023-09-10 11:11 | PC.NURSE ---
Patient continues to complain of pain rating at a 9. Spoke to Dr. Yost he gave 1 time order of demerol 25mg iv which was administered at tis time. Leg is elevated and has ice behind the knee. Patient has eyes closed at this time. with snoring.
--- NOTE | 2023-09-10 11:15 | PC.NURSE ---
Patient is snoring at this time post pain medication
[2023-09-10 11:28] LABS: Glucometer 99 mg/dL (74-106)
[2023-09-10] MEDS: ENOXAPARIN SODIUM 40 MG/0.4 ML SYRINGE SUBQ (14:16)
[2023-09-10] MEDS: OXYCODONE HCL 15 MG TABLET PO (14:16)
[2023-09-10] MEDS: VANCOMYCIN HCL 1,000 MG in 0.9 % SODIUM CHLORIDE 250 ML 250 MG IV (14:17)
--- NOTE | 2023-09-10 14:38 | P.HP_ITS ---
<Statement entered by Grant Cummings MD - 09/12/23 07:31> Pt seen and examined , in bed, good pain control, has been through this many times, feels likely d/c in Am Agree with PE, input and diagnosis and plan of Care This documentation has been reviewed and approved. H&P: HPI History of Present Illness Chief complaint: right ankle arthritis Narrative: 09/10/23 7680 This is a 58-year-old male patient with a past medical history as outlined below including hypertension, hyperlipidemia, and chronic bilateral foot and ankle pain from arthritis/pathology; who underwent a R talectomy with total talus replacement per Dr Caldera this morning. He is being admitted to the hospitalist service in observation with the podiatry service on consult for post op management. At the time of my exam the patient was just returning from the bathroom to his bed. He is ambulating well using a right leg scooter as he is nonweightbearing for 3 weeks. The patient reports that his pain is well-controlled. He denies any chest pain, shortness of breath, abdominal pain, N/V/D, or any other acute complaint. He has had multiple surgeries to both of his ankles and is very familiar with using a scooter and making his way around his home in a postoperative status. He denies acute needs at this time. Review of Systems ROS Status of ROS 10 or more systems reviewed and unremark able except as noted in history and below [facility] Medical History (Updated 08/25/23 @ 15:20 by Tania Kinney NP) Impingement of right ankle joint ?M25.871 - Other specified joint disorders, right ankle and foot (ICD-10) Osteochondritis dissecans ?M93.20 - Osteochondritis dissecans of unspecified site (ICD-10) Ankle arthritis ?M19.079 - Primary osteoarthritis, unspecified ankle and foot (ICD-10) Migraine ?G43.909 - Migraine, unspecified, not intractable, without status migrainosus (ICD-10) Elevated PSA ?R97.20 - Elevated prostate specific antigen [PSA] (ICD-10) Kidney stones ?N20.0 - Calculus of kidney (ICD-10) High cholesterol ?E78.00 - Pure hypercholesterolemia, unspecified (ICD-10) Hypertension ?I10 - Essential (primary) hypertension (ICD-10) S/P extracorporeal shock wave therapy ?Z98.890 - Other specified postprocedural states (ICD-10) Prostate cancer (08/2023) ?C61 - Malignant neoplasm of prostate (ICD-10) Surgical History (Updated 09/10/23 @ 15:11 by Anita Davis NP) Hx of prostate biopsy (~08/16/23) ?Z98.890 - Other specified postprocedural states (ICD-10) History of colonoscopy ?Z98.890 - Other specified postprocedural states (ICD-10) History of foot surgery ?Z98.890 - Other specified postprocedural states (ICD-10) History of ankle surgery ?Z98.890 - Other specified postprocedural states (ICD-10) Family History (Updated 08/25/23 @ 15:03 by Tania Kinney NP) Other Family history of hypertension Family history of stroke Social History (Updated 08/25/23 @ 14:58 by Tania Kinney NP) Within the past year, how often did you have a drink containing alcohol: 2-3 times a week Smoking status: Never smoker Non-prescribed substance use: denies use 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 Highest level of school completed/degree received: high school graduate Do you think of yourself as: straight/heterosexual Gender Identity: male Meds Home Medications and Allergies Home Medications Medication Instructions Recorded Confirmed Type allopurinol 100 mg tablet 100 mg PO DAILY 08/25/23 09/10/23 History aspirin 81 mg tablet,delayed 81 mg PO DAILY 08/25/23 09/10/23 History release (Adult Aspirin Regimen) cholecalciferol (vitamin D3) 25 1,000 unit PO DAILY 08/25/23 09/10/23 History mcg (1,000 unit) capsule lisinopril 20 1 tab PO DAILY 08/25/23 09/10/23 History mg-hydrochlorothiazide 25 mg tablet metoprolol succinate 50 mg 50 mg PO DAILY 08/25/23 09/10/23 History tablet,extended release 24 hr pitavastatin calcium 4 mg tablet 4 mg PO DAILY 08/25/23 09/10/23 History aspirin 81 mg tablet,delayed 81 mg PO BID 30 days #60 tabs 09/10/23 Rx release (Adult Low Dose Aspirin) cholecalciferol (vitamin D3) 125 125 mcg PO DAILY 90 days #90 caps 09/10/23 Rx mcg (5,000 unit) capsule docusate sodium 100 mg capsule 100 mg PO BID PRN constipation 7 09/10/23 Rx (Colace) days #14 caps doxycycline hyclate 100 mg capsule 100 mg PO BID 7 days #14 caps 09/10/23 Rx ondansetron 4 mg disintegrating 4 mg PO Q8H PRN nausea and 09/10/23 Rx tablet vomiting 5 days #15 tabs oxycodone-acetaminophen 5 mg-325 1 tab PO Q6H PRN pain 7 days #28 09/10/23 Rx mg tablet (Percocet) tabs tizanidine 2 mg tablet 2 mg PO TID PRN muscle spasticity 09/10/23 Rx 7 days #21 tabs Allergies Allergy/AdvReac Type Severity Reaction Status Date / Time cephalexin [From Keflex] Allergy Hives Verified 08/25/23 14:54 Exam Constitutional Vital Signs, click to edit/add: Last Vital Signs Temp 97.7 F 09/10/23 14:11 Pulse 86 09/10/23 14:11 Resp 16 09/10/23 14:11 BP 117/69 09/10/23 14:11 Pulse Ox 91 L 09/10/23 14:11 O2 Del Method Room Air 09/10/23 14:11 O2 Flow Rate 1.5 09/10/23 13:24 Common normals: no apparent distress, oriented x3, alert and well nourished General appearance: cooperative Orientation/consciousness: Yes awake [facility] Common normals: normocephalic, head/scalp atraumatic, hearing grossly normal bilaterally, external nose normal and moist oral mucous membranes Head and scalp: normocephalic and atraumatic Eye Common normals: PERRL, EOMs intact bilaterally, conjunctivae normal and no scleral icterus Alignment: alignment normal Eyelid: eyelids normal Neck & C-Spine Common normals: full ROM, supple and no JVD Chest Common normals: inspection of chest normal Chest: symmetrical chest wall rise Respiratory Common normals: normal respiratory effort, no retractions, no use of accessory muscles and clear to auscultation bilaterally Effort & inspection: able to speak in complete sentences Cardio Common normals: no JVD, regular rate, regular rhythm, S1 normal heart sound, S2 normal heart sound, no gallops, no clicks, no rub and peripheral pulses 2+ throughout Heart sounds: murmur (HSM 2/6) GI Common normals: Normal to inspection, nondistended, normoactive bowel sounds present, soft to palpation, non-tender, no hepatosplenomegaly, no masses and no bruits Bladder/kidney exam: bladder normal to palpation Back & Pelvis Common normals: thoracic and lumbar spine normal to inspection Extremity Common normals: normal capillary refill and no pedal edema General: normal exam except as noted; no clubbing and no cyanosis Right lower extremity: ankle joint (Surgical dressing in place, D&I. CMS intact) Neuro [place] Coma Scale: GCS not evaluated Common normals: CN's II-XII intact bilaterally, moves all extremities, no focal motor deficits and no sensory deficits noted Speech: speech normal Motor exam: strength 5/5 throughout Psych Common normals: mental status grossly normal, thought process normal, affect normal and activity/motor behavior normal Results Labs Labs: Short CBC 09/10/23 Range/Units 06:09 WBC 4.1 (4.0-11.0) 10^3/uL Hgb 14.5 (14.0-18.0) g/dL Hct 43.4 (42.0-54.0) % Plt Count 218 (150-450) 10^3/uL Pulse Oximetry Attestation: I have reviewed the pertinent pulse oximetry results. Assessment and Plan Assessment and Plan (1) S/P surgical manipulation of ankle joint: Assessment and Plan: ACUTE * Adm to observation * POD#0 R talectomy, total talus replacement per Dr Caldera * Consult Podiatry for post op surgical management * Defer post op antibiotics, WB orders, pain management, PT orders, DVT prophylaxis to the podiatry service * CBC, BMP in AM (2) Hypertension: Assessment and Plan: CHRONIC * Continue home ACEi, HCTZ, BB * BP well controlled (3) High cholesterol: Assessment and Plan: CHRONIC * Continue home statin
[2023-09-10] MEDS: KETOROLAC TROMETHAMINE 30 MG/ML VIAL 15 MG IM (16:11)
[2023-09-10] MEDS: ASPIRIN 81 MG TABLET.DR PO (20:10)
[2023-09-10] MEDS: ALLOPURINOL 100 MG TABLET PO (20:10)
[2023-09-10] MEDS: ATORVASTATIN CALCIUM 20 MG TABLET PO (20:10)
[2023-09-10] MEDS: METOPROLOL SUCCINATE 50 MG TAB.ER.24H PO (20:11)
[2023-09-10] MEDS: PREGABALIN 75 MG CAPSULE PO (20:15)
[2023-09-10] MEDS: OXYCODONE HCL 5 MG TABLET PO (20:15)
[2023-09-10] MEDS: OXYCODONE HCL 5 MG TABLET 10 MG PO (23:34)
--- NOTE | 2023-09-10 23:44 | PC.NURSE ---
This technical proposal writer notified hospitalist of patients increased pain after 5mg PRN medication. Physician ok'd to give 10 mg more PRN pain medication by [place] [employer].
[2023-09-11] MEDS: VANCOMYCIN HCL 1,000 MG in 0.9 % SODIUM CHLORIDE 250 ML 250 MG IV (01:06)
[2023-09-11 04:00] VITALS: BP 124/74; PULSE 72; RESP 18; TEMP 36.3; O2SAT 95
[2023-09-11 05:54] LABS: Basophils Percent Auto 0.1 % (0.2-2.0); Hematocrit 39.7 % (42.0-54.0); Hemoglobin 12.7 g/dL (14.0-18.0); Immature Granulocytes Abs Auto 0.02 10^3/uL (0.00-0.03); Immature Granulocytes Pct Auto 0.3 % (0.0-0.5); Lymphocytes Absolute Auto 0.9 10^3/uL (1.2-3.8); Lymphocytes Percent Auto 13.2 % (20.5-60.0); Mean Corpuscular Hemoglobin 29.3 pg (25.9-34.0); Mean Corpuscular Volume 91.5 fL (80.0-94.0); Mean Platelet Volume 10.3 fL (9.5-13.5); Monocytes Absolute Auto 0.7 10^3/uL (0.3-0.8); Monocytes Percent Auto 10.2 % (1.7-12.0); Neutrophils Absolute Auto 5.4 10^3/uL (1.4-6.5); Neutrophils Percent Auto 76.2 % (43.0-75.0); Platelet Count 203 10^3/uL (150-450); Red Blood Count 4.34 10^6/uL (4.70-6.10); Red Cell Distribution Width 14.2 % (11.0-15.0); White Blood Count 7.1 10^3/uL (4.0-11.0)
[2023-09-11 06:14] LABS: Anion Gap 11.2; BUN Creatinine Ratio 17.3; Calcium 8.7 mg/dL (8.5-10.1); Carbon Dioxide 29.2 mmol/L (21.0-32.0); Chloride 105 mmol/L (98-107); Estimated GFR (African America >60 (>=60); Estimated GFR (Non-African Ame >60 (>=60); Glucose 124 mg/dL (74-106); Potassium 4.4 mmol/L (3.5-5.1); Sodium 141 mmol/L (136-145)
[2023-09-11] MEDS: OXYCODONE HCL 15 MG TABLET PO ×2 (06:24→11:58)
[2023-09-11] MEDS: ENOXAPARIN SODIUM 40 MG/0.4 ML SYRINGE SUBQ (08:25)
[2023-09-11] MEDS: PREGABALIN 75 MG CAPSULE PO (08:26)
[2023-09-11] MEDS: CHOLECALCIFEROL (VITAMIN D3) 25 MCG/1,000 UNITS TABLET PO (08:26)
[2023-09-11] MEDS: HYDROCHLOROTHIAZIDE 25 MG TABLET PO (08:26)
[2023-09-11] MEDS: LISINOPRIL 20 MG TABLET PO (08:26)
--- NOTE | 2023-09-11 10:02 | PM.PN ---
Progress Note: Subjective Subjective Interval history: POD 1 total talus replacement Mr. Blackburn seen at bedside and relates that the block has worn off at least 90% and his pain is controled. Denies n/v/f/c/sob/cp/calf pain. He has been out of bed to bathroom with knee scooter without issue. 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 Constitutional Vital Signs, click to edit/add: Last Vital Signs Temp 97.3 F L 09/11/23 04:00 Pulse 72 09/11/23 04:00 Resp 18 09/11/23 04:00 BP 124/74 09/11/23 04:00 Pulse Ox 95 09/11/23 04:00 O2 Del Method Room Air 09/11/23 04:00 O2 Flow Rate 1.5 09/10/23 13:24 Progress Note: Objective Labs Labs: Short CBC 09/11/23 Range/Units 05:08 WBC 7.1 (4.0-11.0) 10^3/uL Hgb 12.7 L (14.0-18.0) g/dL Hct 39.7 L (42.0-54.0) % Plt Count 203 (150-450) 10^3/uL BMP 09/11/23 05:08 Sodium 141 Potassium 4.4 Chloride 105 Carbon Dioxide 29.2 BUN 18.0 Creatinine 1.04 Glucose 124 H Calcium 8.7 Progress Note: A&P Assessment and Plan (1) S/P surgical manipulation of ankle joint: (2) Hypertension: (3) High cholesterol: Plan NWB operative extremity x3wks F/u within 7-10 days - patient to call my office to arrange Patient's has picked up prescriptions already Ok to d/c home
--- NOTE | 2023-09-11 11:17 | PM.DS1 ---
DS: Providers Provider Date of admission: 09/10/23 11:35 Primary care physician: DOROTHY PERLA Consults: 09/10/23 10:28 Physical Therapy Eval and Treat Routine Reason for consultation: Postop eval/crutches/knee scooter, nonweightbearing right lower extremity Has provider been notified: No 09/10/23 14:33 Consult to Podiatry Routine Consulting Provider: Kyler Caldera Reason for consultation: Post op management Has provider been notified: Yes Attending physician on discharge: Shaikh Dominga Discharging clinician: Shaikh Dominga Anticipated date of discharge: 09/11/23 DS: Diagnosis Discharge Diagnosis (1) S/P surgical manipulation of ankle joint: Assessment and plan: Outpatient follow up with Podiatry (2) Hypertension: Assessment and plan: Stable. C/w home meds Qualifiers: Hypertension type: primary hypertension Qualified Code(s): I10 - Essential (primary) hypertension (3) High cholesterol: Assessment and plan: C/w statin DS: Summary Hospital Course Hospital Course: Patient admitted for post op monitoring and pain control after he underwent talus replacement for ankle arthritis (please see detailed operative note) Seen earlier today. Pain is reasonably controlled. HTN at goal. No active complaints or issues that would require hospital stay. Patient stable for d/c from Podiatry point of view. Follow up with Dr Caldera in 7-10 days Status at Discharge Overall status at discharge: patient is progressing back to baseline Time Spent with Patient Time attestation: Total time spent providing and/or coordinating discharge services: Time spent: greater than 30 minutes Exam Constitutional Vital Signs, click to edit/add: Last Vital Signs Temp 97.3 F L 09/11/23 04:00 Pulse 72 09/11/23 04:00 Resp 18 09/11/23 04:00 BP 124/74 09/11/23 04:00 Pulse Ox 95 09/11/23 04:00 O2 Del Method Room Air 09/11/23 04:00 O2 Flow Rate 1.5 09/10/23 13:24 Documenting provider has reviewed patient's vital signs: yes Common normals: no apparent distress and oriented x3 General appearance: cooperative Respiratory Common normals: normal respiratory effort and clear to auscultation bilaterally Effort & inspection: able to speak in complete sentences Auscultation: clear to auscultation bilaterally Cardio Common normals: regular rate, S1 normal heart sound and S2 normal heart sound Rate: regular rate Heart sounds: S1 normal and S2 normal Extremity Common normals: no clubbing, cyanosis or edema Neuro Common normals: oriented x3, moves all extremities and no focal motor deficits DS: Data Data Completed and Pending Labs on day of discharge: Labs from last 24 hours 09/11/23 09/10/23 05:08 11:27 WBC 7.1 RBC 4.34 L Hgb 12.7 L Hct 39.7 L MCV 91.5 MCH 29.3 MCHC 32.0 RDW 14.2 Plt Count 203 MPV 10.3 Neut % (Auto) 76.2 H Lymph % (Auto) 13.2 L Hayes % (Auto) 10.2 Eos % (Auto) 0.0 L Baso % (Auto) 0.1 L Neut # (Auto) 5.4 Lymph # (Auto) 0.9 L Hayes # (Auto) 0.7 Eos # (Auto) 0.0 Baso # (Auto) 0.0 Abs Immat Gran (auto) 0.02 Imm/Tot Granulo (auto) 0.3 Sodium 141 Potassium 4.4 Chloride 105 Carbon Dioxide 29.2 Anion Gap 11.2 BUN 18.0 Creatinine 1.04 Est GFR ( Amer) >60 Est GFR (Non-Af Amer) >60 BUN/Creatinine Ratio 17.3 Glucose 124 H Calcium 8.7 POC Glucose 99 Discharge Plan Discharge Disposition: Home, Self-Care Condition: Good Discharge Medications: New doxycycline hyclate 100 mg capsule 100 mg PO BID 7 Days Qty: 14 0RF aspirin [Adult Low Dose Aspirin] 81 mg tablet,delayed release (DR/EC) 81 mg PO BID 30 Days Qty: 60 0RF oxycodone-acetaminophen [Percocet] 5-325 mg tablet 1 tab PO Q6H PRN (Reason: pain) 7 Days Qty: 28 0RF docusate sodium [Colace] 100 mg capsule 100 mg PO BID PRN (Reason: constipation) 7 Days Qty: 14 0RF ondansetron 4 mg tablet,disintegrating 4 mg PO Q8H PRN (Reason: nausea and vomiting) 5 Days Qty: 15 0RF cholecalciferol (vitamin D3) 125 mcg (5,000 unit) capsule 125 mcg PO DAILY 90 Days Qty: 90 0RF tizanidine 2 mg tablet 2 mg PO TID PRN (Reason: muscle spasticity) 7 Days Qty: 21 0RF Continued allopurinol 100 mg tablet 100 mg PO DAILY lisinopril-hydrochlorothiazide 20-25 mg tablet 1 tab PO DAILY metoprolol succinate 50 mg tablet extended release 24 hr 50 mg PO DAILY pitavastatin calcium 4 mg tablet 4 mg PO DAILY aspirin [Adult Aspirin Regimen] 81 mg tablet,delayed release (DR/EC) 81 mg PO DAILY Hold Instructions: Order Change cholecalciferol (vitamin D3) 25 mcg (1,000 unit) capsule 1,000 unit PO DAILY Activity Detail: Dr Caldera pre printed non weight bearing instructions given Diet: advance to your usual diet Patient Instructions: Doxycycline (By mouth), Oxycodone/Acetaminophen (By mouth), Aspirin (By mouth), Laxative, Stool Softeners (By mouth) (Doculax, Colace, Colace Clear, DSS), Ondansetron (By mouth), Tizanidine (By mouth), Cholecalciferol (By mouth) (D-3, Nature's Blend Super Strength... Activity Restrictions/Additional Instructions: Please leave dressing to right lower extremity clean dry and intact. Do not attempt to remove the dressing or get it wet. Please maintain nonweightbearing to right lower extremity. Please use crutches walker or knee scooter for assistance. Please take medications as prescribed. Please rest, ice behind the right knee, and elevate the right foot above the level of your chest to assist with pain and swelling. Please follow-up with Dr. Caldera's office within 1 week of discharge. Please call the office to confirm appointment, and/or with any questions or concerns. Referrals: Kyler Caldera DPM [Physician] - Follow Up Appointments: Please follow-up with Dr. Caldera's office ([phone]) in 1 week. Please call the office to confirm appointment.
== END 2023-09-11 12:43 | disposition home or self-care (01) ==
LOC: MS 11:40
PROVIDERS: Anesthesiology; Nurse Practitioner; Podiatrist Foot & Ankle Surgery; Admitting Provider Internal Medicine; PCP Family Medicine; Visit Provider Internal Medicine
PROC: (CPT 1464; principal; 2023-09-10 07:30)
DX: M25.871 Other specified joint disorders, right ankle and foot (principal); M19.071 Primary osteoarthritis, right ankle and foot; M93.271 Osteochondritis dissecans, right ankle and joints of right foot; M72.2 Plantar fascial fibromatosis; M24.571 Contracture, right ankle; I10 Essential (primary) hypertension; E78.00 Pure hypercholesterolemia, unspecified; C61 Malignant neoplasm of prostate; Z87.442 Personal history of urinary calculi; Z98.890 Other specified postprocedural states; Z79.82 Long term (current) use of aspirin; Z79.899 Other long term (current) drug therapy
CPT/HCPCS: 27687; 27702; 29893; 36415; 64445; 73610; 73630; 76000; 80048; 82948; 85025; 88304; 88311; 96365; 96372; C1776; G0378; J1100; J1170; J3370

== ENCOUNTER 2023-09-29 15:10 | Outpatient (OUT) | payer OTHER, SELFPAY ==
--- NOTE | 2023-09-29 | XR_ITS ---
The [address] [address] Patient Name: GURVINDER CHAUDHRY MRN: [id number] date: 1965 Sex: M Assigned Patient Location: [facility] Current Patient Location: [facility] Accession/Order Number: [id number] Exam Date: 09/29/2023 15:51 Report Date: 09/29/2023 17:09 At the request of: ROS CM Procedure: XR ankle RT min 3V EXAM: XR ankle RT min 3V HISTORY: RIGHT ANKLE PAIN COMPARISON: 09/10/2023 TECHNIQUE: 3 views of the right ankle were obtained. FINDINGS: The posterior mold has been removed. Again seen is the right talus prosthesis in place, with narrowing of all the joint spaces associated with the talus. There is no evidence of an acute fracture or dislocation. Small calcifications are seen at the tip of the medial and lateral malleolus. Diffuse soft tissue swelling is seen about the ankle. An osteophyte arises from the plantar aspect of the calcaneus. XR/XR ankle RT min 3V IMPRESSION: Postsurgical changes are present, with a talus prosthesis in place. There is mild narrowing of all of the joint spaces associated with the talus. Small soft tissue calcifications are present at the medial and lateral malleoli and diffuse soft tissue swelling is present. There is no evidence of an acute fracture or dislocation. Electronically authenticated by: ROS MCKEON Date: 09/29/2023 17:09
--- OUTSIDE RECORDS SUMMARY | 2023-09-29 15:13 | XMS_ITS | CCD ---
Author Name Unknown Address [address] [place] [address] Organization [facility] Care Team Providers Care Regional Sales Engineer Name Role Phone DEV CH Unavailable Unavailable QUIN ROBISON Unavailable Unavailabl e PHYSICIAN, DEFAULT Unavailable Unavailable PHYSICIAN, DEFAULT Unavailable Unavailable DEV CH Unavailable Unavailable ROS CM Admitting Unavailable HIGHLANDER, ROS Smith Attending Unavailable ROS CM Consulting Unavailable ROS CM Admitting Unavailable ROS CM Attending Unavailable JAIR CARPENTER Admitting Unavailable JAIR CARPENTER Attending Unavailable MISSAEL TEJADA Admitting Unavailable MISSAEL TEJADA Attending Unavailable DEV CH Primary Care Unavailable Dev Ch Primary Care Unavailable Eli Santos Attending Unavailable Eli Santos Admitting Unavailable Eli Santos Attending Unavailable Eli Santos Admitting Unavailable Dev Ch Primary Care Unavailable Dev Ch Primary Care Unavailable Allergies Allergy Classification Reported Allergen(s) Allergy Type Date of Onset Reaction(s) Facility (3 sources) cephalexin; Translations: [Keflex] Drug Allergy 09-20-2009 AOF [facility] Repository Problems Active Problems Problem Classification Problem [...] Test Name Value Interpretation Reference Range Facility Coding Summaryon 09-16-2023 Coding Summary HTMLBase 64 MuiassokCNt8gPd+PGhlYWQ+ JA2AEJTvO38mbFYzxJ0nR1VG TElOSywgQVBQTElOSyIgbmFt QG7wzMZxZMEl IC8+MD4cMWCaGtdvlOTcm3P9 jZS8L61gew4lVKyssKN2XVCs ClZlygpqc2ztkBu5WPkyNavm OyBt KOQyxY33SSX3gB30Zx12hQYk nEDgp5yrwHp4GdPhPWVaRCS9 vOaiNTijy7FyTCMwD63jrCRa c2U6 WAWuyTqbgPGzApOxyGV0dO5p DHgxnclql9gcamcmQnn7re83 oDPom1X7aCG4W7XiguK5PGQq bGQg BfxmmWWQhV9ywyews3djhupg GeLtATXyHIy6UJi5GDMcxDpv DsAcKM52GUT3XRZfyiEbE3Ch LWFs rXxrVqZ0k5Q1Mm3MT0UVUicv J5WGTZGMNRcpjUZ+NC87lz75 C6GtRqbcVnw1BIUxUMJ4qQW1 aD0n SABrWKyxl8H1sDA9Y4AzleJe dd1mg5xiSDDlNJboF23yrYBi c5Y8QCLonJA5BHImnFufTiZd aG93 Oyc+YFZvnBtru6KvWvdtg5qd j5cnbWk8KstwUISajlEskIrj BEN1r4CqTe5kFAOqxKT7wOQ0 aD0i NcVgUzN4OMhuN466CaGgyTFz VxbjC22vQ9XbrSV+PHRyPjx0 ISOwvGsyRE1lA3LsGRNvzadm bGVm wOqiDT6tDOJoxxygADUfiZ8n VTNdE0i3PhAnQrW6AWhuM2Ho LCZkixdoVq94fE5iQbZvLsQ3 MGlu H9NpxkY4OBEtkUDvWWtmCUA7 J25sa9E0LHMlYAWyRWX5oPA2 eY5fwItayvhikFAntFglcoAg dGlj YNqsPRpgW906XKXywFigMqWr ZGluZyBEYXRlOiAgMTIvMjgv MjAyMzwvdGQ+ZZOjZQX1qJxx PSAn lJRnIWlaHx1thXolpSblVB1q KQYcljqrNWNyvL2zTSOgqEGo rRkqPY2nSHDmaopkc651OzGe MHB0 ODUchDFaN3KbiJ3zQlUtCCXv QPTdE0EhuUTyRUqfE427NLkb JkG6XVKmzqGpQ9KnFMQqyZlz OiB0 t9K2Fd5Ic3YmrsdcK3BtzEKd DpGsIhorSOv7P2JfPbnyuWR+ SU01IMIvJU16QBr5UNW6fAig PSdi KILmC4UfcL9oCnBhPSJtELPs Oyc+PHRhYmxlIHdpZHRoPScx XATnSpBjpJrnAN3yOk5tUUKz LWNv fRbovQMtFlHtm2jdXFPfECkz MV7hhLcwS5PtpGQ0VEDke6k4 Wb21P32yF0LvrIB+PGNvbCB3 aWR0 mO8yNyGxEgN9DDhqL697QqEa kPYgPuzsf6ghr6xjyQv1VwH0 MJHcyqQamVlfIEX9r9NvTv76 Y29s IHdpZHRoPSIxNSUiIHZhbGln ng3eaV3oCz5+URAroQD3aAK9 mE5mMpEgBbD9UXslQ280ZhIj cCIv Klmxy6ssw6afrBi9PsXhPYHx ccUegAviORK8s4OkOq36Y6Bw oHdcp5TmRkl2ns51fVWmc3U7 bGU9 Q7ZhDZRshdozkHBftXtlSP5c DWVvwmosVCQnfF2cHXIhR2l8 SzBlZtO3VAnqR1PflcE3WQLc bGQg GWQuvMEDiC3kumwyj5slgsvg HiMgXCMfOJm6WGf7YFEwzVch BuYnYNX3FpU5GSP2kBXgyQ3n bGln grhapI6qNzf+PLL3sTRgwROO FI3yLqwnsUV+UBXpCDI6aSxe WXcbXLEubX2sWGLdO7r1ByWr LjA1 JRagC3ZdzeN8OONxyNPhYDYi wXPOvS1lwjcip2ohspuuOtVn QNSpXOc5OYv1RYFuiAlfAzKd ZWZ0 ToZ4AVB1tECxrZ3fhNlpteav xJ0cPif+UturfUdnMSN5NDu4 G1PaBec5VONfwRpmQV1vxFYf ZGlu Bm2obAjzxGncMW3kKLErxuwd k434AsOoo6fvHBLmhCIzGAqr BIY0O91es9H7IYBeJDCnCKD7 dGV4 kX1alCgumbucjYEoiLscnnOw rHymBFqaPZnrP479UFXixUtg UdCgIHg0E2JgVnn1BZErxVkb ZT0n uCFvSCbaFr2upBcprRkhAL7y DENhitbvs519YwQip9vvWSRl cNJzCNleGHL7U24qk4B4ZALi MDAw UZC0nLJ2rA7nlKcvckqbgXYw aXpqwrXrdOvuPKirHCxyL749 TNQpbLpqLnQpgPt0T7XsDgp8 ZCBz cKxdJG6txJOpOUisIl4erWee cQwpVU5lTIDxizrqf071XfPh r5gdKNOddDLwOTlnYEE2T14n b3I6 MZRlKZLbIPW8vUD3rH0taVxx bjogbGVmdDsgdmVydGljYWwt DBirA141HYAhfQxmTkDojNex bnQg OVitYQm5R5YeDnxrvXS+PC90 SXHpQT66gKMgfFWsi9ojpFv6 KpFhANLsCVT6xXcyNQnpf0It ZXIt R22kbAEsn7Z5XPHszGlmsKMr AiAtjVU6hZ7tYMhojmccu8bz juqnBilih2hicr52iH20Q85r IHdp XBPwENSyIQFyIFNxqMpaxq4a pM9hKt4+OBHalOK0fLZ6zU2n HEFkQdZ8FJxxE541IjIolTSi Pjxj k6ujq5zpbZv1IsR4SNKrokAp rXuxVHI0l5UgVj22T51lYMvu SLEtPPEdFMRdREYshTjmvm0z dG9w Ii8+XEGgzFX0mEB0pB8xOtZk VlC3FSpqU268RqMgxDVxUfiq C06jS0AbgOM+BYYqUfc9KBWn dHls QE7igNNjFOzeUx9qRES1BsXa MzLlDByvT8TrNTHpbyjdkbiv cIP7IJUcVCOsxJ92Oh6hhLbs MTBw aMQApY6kfilie7bmfxleZjDj KDNbPYw2QGl2UMLrxCmmYoLa KFB3MiI6FAR3uMHxfF1rtJij bjog iZ9mG3OeHMSavjqlRh43dN0d YlMeUrG3BDkaZgz+RFVSSVZB C5FqGReESkvqEUjKBJ22N9Ib Pjx0 HFWaoGfrVG6kpUGuUDscAs6h hHjihJofES5uHRUiuwqpGCPv hO9cOITsyQWgiOfnAX3rCIXh bjtm f593McCfJZL4AZNsoNDyO3Ve oQ3eEtDzKGTeGNJfL5AdwAFj SJmyY516QVhhJdY4JYScmzCi Y2Fs DFZuiDrbUaN2q4E5Ug2xNS6h Ww0tFLD0DS95QK20aHZii8Q0 mWH7G9ImCNBkhwninkqmqPU7 IDAu CXKvtP67oOKoRVycYr5rb4H4 z360UUWrKDWotX96Cx4jzVab ANOtvBTDnJ1hfetff7xlkuha IzAw OQSfVWv5MGz7GSJvrQikGfUu URQ8BbU7KSV9oSJdeK1ujEcu bdbszE9gWir+NTYgWWVhcnM8 L3Rk Che3LYOsmEbqYI7jbBTmNRdu Na1ilNdweYneNN6lKJRsmgyk XYTebL4lKGJeyZVxoHgdZW5w NTBp apqvm832CqRoOYI9ASNjwBNs T6MjiM3sKlEuROUvSBXxB3Lz bFWcNZwqQ373WDiaQrE1DXNs cnRp X9TjLVEkhGriHsI3g8E0Dy5G TUeWKG96GU83cOWgu0C7wAQ3 T9XePKCiyxiqnxlmtSV3RCFe MDUw yP14bXJtAShgZi1pa6A1g223 JVZwKGRtbZ50Qq6zqPwyRVYe vYZIiZ1geuptv9iinbknLxWs MDAw PLc8GGw4RKNftZmeSrXrVNA4 JyO8WGA5wMWolV3nqXfktrcn aG7wJka+X1B7sMC1eYNdsNYz biBh IEJlZDwvdGQ+KK69es40C0Zr FhlpMvs4FNSsYLL5oBB6lN3v PIRdGYgio4M7fWG5U4VxsqSe ci1j e6jlTXVnKLsdA27ieUCas3K5 ZBVpdJA5AHEllNohPjPurG79 Oyc+VOIddJzar7GrCtmxx6vs d2lk vHj2IhLqRIQrtdVfoRayJOX2 h4DoIf26H95aCBssPJJyGSJg PLTpPXJboMagql6koM9oZe0+ PGNv yXK7hOK0eL2eVzUqUgE6ZTci N984OuXfgZNbOkovq8tjp6tt hOr8GeTiNDGdpbTaxPuqKOO3 b3Ai Ve44W3EpzQzzm2BiAds4or71 fHGoh2L0pHB9I9EgPSTrcaws dCKbrKzaEN1wYGNvvbgzVUQf aW5n JYNuQ9l6BuTpBwR3BJagZ0He hfY4YHMluIQeYCReuQIDsO1b pekap0zcsxzcPmBnGDZdEFh5 ZXh0 XHXgzZasLpQwYUU4ZwF6FEC0 oMEmkX4dxQsxziaqyM3tMzb+ SVa0g7gvqBLwUN7vhWR2PW20 ZD48 dCPkr9N9yNB0N0JrNOVyuibt utvljOG7ZMKgJDIjtC56Im2o eGdmEl5cHFAlNGD5FCIplKGu O2Nv wN4gMlFwVTJgKJRtA3ErqXUl ZHfkG127WSixFkG3ECZtdkQo T5OcZCHvsVjjCpT5e7N1Je4H SU46 JY09SJ30iKGgf9A6bOW9V9Jw JHNemnxqumifrZI3ISZxTJJf sN97Nt7twEssIl0vFFArDNH3 IFRp dOXoD5NwjQ9iNuRdXYKmWNVo V5UwiIDsONzsX182EHhpOnW7 LZKzgwJuR4KxGEGjkVmaKsR4 b3A7 Kr9YPq21RK53MU04uATpl0J8 yKH7S5BdKJBhzmwjzjfnxVF0 RXGyPQHcjY43Qb0nrErdWp2f ZCAx KRT8RPNzhOTlI2CugG9uWaNt ULCwKKXwT7OmfPKzHKqpZ564 JOwmDlG3FKUoqbZqO5SyRSYv aWdu XnL4n7W5Cf2AMRvahvu7I8Nn PjwvdHI+ZM04RPWoPJ83bYIk qRPsi9tobJy2KwJeNDPtKVS5 eWxl PSd (more content not included)... [facility] Coding Summaryon 09-15-2023 Coding Summary HTMLBase 64 XpiwulawJHa9aQm+PGhlYWQ+ FE0SVNItQ58bpEGqlT0zM5VA TElOSywgQVBQTElOSyIgbmFt GR2cyVDhHSBy IC8+EH6lTSUuAisnaIPgi4P2 cUY1L52chv8bFLpdkYW6TQHw XxOoceaor8ecdPq9AVqyEqkv OyBt DQGvuV18BKJ3uM92Hm32gCAb mLZom2gjcZs0IyTnAHOxIWC4 bMyvRYqpj3DjUSRtU06tnRYi c2U6 YXZfaYvyrMIlKkSiwNJ3cL0i LTyksunpo0iyvfuwIqn0yo45 yWXbv7D9eZW6M6YvugZ0IZYk bGQg BioxtOVDwX3yzsyjc3lolwlu KiWkQDWpWHy5YJm9UEWgdQro OlDkBH99IXY9OJHnkkYyD7Io LWFs jNlmXxB2t4I0Ys3MD6LTVcpx W8LFBQCYOXiduSR+SU35nh72 T3UwQstrBvk4NHFrWLC0vCW6 aD0n QPYiHYjkc4H4dSI3K2RchbRy jk6po1xhHAFtRQazL73zcQQd e5O1HLVgjGO9PXOcjWxhHwEz aG93 Oyc+DQNpuYdvh9NaLlwfj3if y2nstFs3UplaPJBciiMnlCrj QGM3l6XxWz1dTBDmoLU9dCI6 aD0i DlGbHrT6BXauB293DyWigQJk PydkI59zM8IfyQC+PHRyPjx0 CSBhrHsrWF6eW7LaCGYmokas bGVm aKpcBJ0sZECmiawcBDHrpU9z JDGdD1m2BkMmUpM4VPfrP7Se XFEzuqptQs05iR9hYhAoKvO5 MGlu B6BuqrF6RTOwbABvPMrqZWC4 V92kp0I8NOXuUWPmAFR6eOO3 mJ4yuXnpfctbpMJxzLknbrCf dGlj EMyvFHivW169VVIzvBaxYgNm ZGluZyBEYXRlOiAgMTIvMjcv MjAyMzwvdGQ+HMMgTJT4hFvs PSAn hCIgWJlcRx0lcAfgiCogOY0l NRWsjvvzUPNxlV1tKEVbxMKu bEgqOB4tHNYgunxhk305LkCy MHB0 RXAhhJNxO8WiaX7yTeCpZTRt INHdR3EmwTAfULrfJ795PWwv PkF7TIYejbUhQ8RyWOAvjWfi OiB0 z1G0Mk5Mk4WbhkjqS7FfeTEt AsBjOhszWFr2E7NgXmhjsWO+ RI46XAIlVA22BXw8SFY2cZfe PSdi SVIwV6RgnW0hLqItYBTyZHZe Oyc+PHRhYmxlIHdpZHRoPScx MYSsZgIzqEhcEK9mCb6dHKKq LWNv zUyuhZGfBfGdb7mjDLKmCFxg LW5ymGnyE0MbmLV2JUSiw4e0 Iw29O96pB4WgeFV+PGNvbCB3 aWR0 vY5aQpXuImX3ZAllK859EgEr yVLrPzfsu2xex1qxfVc5QtU5 OOPjpwCuqQgcTJH3v2ObNl03 Y29s IHdpZHRoPSIxNSUiIHZhbGln te3xjD8pWl7+OPDkcVI9hSH6 dN3sHuDiFjL8EXwwK034MmYs cCIv Yyfui5vkm1rcmRx5LmMxDXBf dmGiuUgsDTO4f5YiZd29P2Nl bDmkx9PpGey9ko17jXCee5Z3 bGU9 I0TwMSAbmeltnLWziOfnWA7c JXVstiodOIYmmJ4qVSLeD2c3 JpKlDyE6HZidM4XgvwN2RQAm bGQg RVFhwLUKfY4fnuvty9qxizyf VbKoJUBsIVo5IAz7OZJrsPar JaNxKDY2HyG6SYU1eCRzlJ5b bGln gzxegL4vDgm+SEO3iLDvvCOT HR4pGlkelRY+BISqBTV2jHbj HFcuGEMwiB0kFJRvU1s1XuYe LjA1 TQjjK2DoyuL1VREhuYIeQNAt bNPEsB1bpldvh0hoefflGeKk IRRfUTx6YNl6OUEaaKqiRiFr ZWZ0 EfZ6HKE3hKJlkH4zqKkipkli xJ2qJut+LzvzfNzwWXP2PXd0 X3EtRjh9HHDmlJpoOA1soMSy ZGlu It9afWlnbNrrJW6gYNGbnvqm d019UkNff2rqHWTuvKLuYUfk KVF5W43yv9K0RVKjDBVdNWF4 dGV4 dN8qfZajtsdxgAOxpZnioeCz uLeaRWrqKYqrV200MTGfuCxu SgKgGDp7J0MvQkc0STGlpTvm ZT0n pAIcMZncEn9phXcrsNtzYB0d CNQnucqtz595BlZfl6nmEKXx qIZjEDjbDXC8Y16nb7M2IOTy MDAw CYP6gQZ0cU8xdSptoflhuRMb fTqyiiEaiAkbKTbpXWagD744 BEXynOzbEyPskBy5W1DkMgr8 ZCBz lBipGL1ncBHlOOxeGs4cyRto bDcjXX2dKTVqbbbth843GwNw k1uxYPGcbAPfDFquAQB9Y23z b3I6 XQVnUKPhKHY2pSY4oC5yyFuh bjogbGVmdDsgdmVydGljYWwt GEhaS872PBPbsQmfDzBzmZyi bnQg CXmeXKb4R5IaDgxktYJ+PC90 POSzZW63pQOxmHTac5ggcXo0 LkBwSSVpDQS7gTvkDIdka5Oj ZXIt R73xpNUpt7U7WXYooBbkzYDr SmJflPQ0iD5xHUpczgwgg5vh uqowNbsox7sxry41lS36K66u IHdp IUIoHKKiNXReFAEqtRfhxs1l vR7dFo8+SFBttDN5rEP9hJ6v DKMjGvA8BRwvL584AuGglYOr Pjxj i2dxl3vnoRy6PcR5WTVzsiHj wSxfIYZ4l8LdVw32H77rRTwa MMHdTYTuSOPaRYIigApgee8p dG9w Ii8+KQAneKC2nIZ2jQ8zJkXo JhN1NPohX123HxDovWXbRzyg R43hK4MogIL+CVMmHhq0ZDGl dHls RY2rbNJmOVizLd3yILN4MbIv QuWmKOppS3JfPBNzaajohgvy qFI0SZZkTWJvaA77Ao4svQmk MTBw aNPNrL2usxepi6kwclvgTkQo VHMwWBn9XOw9VTEdxNzrBeZy DKO7QeH2APM7tHXifE6rjFbs bjog fK6eL1QvUFCjpnbmNt33bI3w BvDgQgG1DDkiIzq+RFVSSVZB B4NrDBzQRuamMQnGWK87L2Yv Pjx0 KTCcsXytMK8vzOVsXOdtZy4s yWddqIjjVZ2sYKSvpcvrEXLc wN6iGGPskTOnjVdwIW1pVVGz bjtm l832EgIlHME9OSCyjRYbS2Ox cY2aEhZxNYQpWGXqP0WenBEi KLrmG694JYaoEwL4YROklvTh Y2Fs KXEmcQrwKkE4u4L4Tl2aFO8e Us4nTNO7TP00WQ26mEXis9F4 aZY5E9MbUYIdoaoidxnkzUR2 IDAu XGDsaO74aSAeNFtsLy2ky3I7 l352SPRtMTOglX91Zc9awMie KGTkuBITfP8tnqitt0dwxira IzAw NVDyWSa0RQz5KIWrpIgyQlOq OWM8BrL8QES0hFBalP5uwUhh xybpqQ8bEhn+NTYgWWVhcnM8 L3Rk Kgt3IKTprTxpQP0ciEQpAXvy Aa7nqHlpoKmmNX4eMJHdhfst VAChnW4tKBDtzQRrkAsmTB3y NTBp vlzgs630AxNgARH3KYUunLJz P7KfiH9rJkPhWZChEWWmA1Ly gWMcNRqzR197CRotSuU6XSXm cnRp O3UzSJNfmWudGuS2c7V2Cl2J VVtDYR74ZH14sHXys7J8nGT6 O1EbAPYqxcbopcmzjOS7CIXd MDUw eU06nPHkSVspHx6ym7Y9b654 RFViYJXiuK36Xh5jjDrhZQHq sYQVwH3utqvrz2fhkgmsLbFx MDAw UBu3UQm2EGKdiYciVxBfJEW1 SvE6TAB7gTHllS0fnCdfbhwh vG1tSeq+T2Z3G9EgPmverJC+ PC90 XHYlYU46vSChuQNwe3eigQk2 FcArTYViGMX0eUlcPLxck6Wf LKOtR87ilTAem1M7CAEdbVzo cHNl DxCqoCJ7nM7hCPbsrgppm6tf quxuLfqtc4nqqk77pA86M39j IHdpZHRoPSIzMCUiIHZhbGln bj0i iI9wOn8+ADXtlBY8yKL9lC1h PhUtPzK4JAsqZ761OzZixVQz Kjhbe8kay8pvxLq0FhOeDPIh dmFs bKjmWTS5a5AmNd12N67aVEdp WEHjZCKkTFSmMUUvjZxvvi6m zG5lHe7+UM7dj8xqvx38iH81 dHI+ CQUfVXQ2yDeuQGbuULEryI6f XOgpEdI4SIMsLhVmbI90fCKt ZKqlDb8eeOtdpGtrXG4mHUQh bjtm u574ZeCgt6pjCANxtNWjUDjm ZQR5H78rj4F0LZQhIXOlPVP8 kEJ4rO3tpHdtlbfqdDOwrRex dmVy wBeyMPhdRPuoA464RBZqwBdo XiUzvPWzR0mjqbUNGW5uPkoc dGQ+KOHuMUS1eAvyONsjVMNo aW5n ACBoZ1v2VsCjBoF2XDtbF8Fz yqH4AEBqqUHxEQZfuHULsF0k aicri8hadgsuTeTaCQKmAKj6 ZXh0 SGCulOgfQvWlOCB5WkL2JHL2 xTTqcI3vkWwmgacguH2lElf+ RklOOjwvdGQ+LWFpRMK8jTmj PSdw GBTnyV1bINAtQ4b1YrPgLlY2 MIgsD3PjeyP1FLYpgUIzHQGf iMXErL7ftyfnp9kefoflYcEs MDAw WSh5ORo8GKVwiVhxNoNhTKF4 TvU3VRX6hCYqjZ9xsKawetfj iK8bXgj+TVJOOjwvdGQ+PHRk IHN0 lBmjESecOWYsyE8qKHPyV6l4 KdPfTgX6ZEmfM3FajmB4QFNc hKQjKTAiwYZWhG5zyhnnu6ll cjog RpSsWEPzRFc5CEw8HVWyeHzk BqAdKUN4KjF9TSN4wSAhcW6a oXfhhampvD9hPae+IDP7ZQE7 PC90 WO46N9FeTzkpjJUnbFC+PHRh YmxlIHdpZHRoPScxMDAlJyBz kIgtOO9mSr1nPHSsHWVduCna cHNl OiB (more content not included)... [facility] Consent Formson 09-06-2023 Consent Forms [id number]#1.00OTG TIFF [facility] Stress Teston 09-06-2023 Stress Test [id number]#1.00OTG TIFF [facility] CV Stress ECGon 09-03-2023 CV Stress ECG DATE OF STUDY: 09/03/2023 CV STRESS ECG The patient was brought to the cardiac testing area. Resting blood pressure was 150/100 with a pulse of 83 in sinus rhythm. Baseline ECG shows sinus rhythm with probable LVH with strain. Per protocol, the patient was infused with intravenous LEXISCAN followed by intravenous Cardiolite. There was no ectopy. There were no particular symptoms. There was no particular change in blood pressure or pulse. There was no ischemic change from a baseline abnormal cardiogram. IMPRESSION: 1. Unremarkable LEXISCAN infusion without ischemia. 2. Nuclear reported separately. Jaskaran Tejeda MD JOB #: [id number] ul Final Dictated by: Jaskaran Tejeda MD Dictated DT/TM: 09/03/23 10:07 Signed (Electronic Signature): Jaskaran Tejeda MD 09/21/23 8:26 am Technologist: ADE [facility] NM Myocardial Spect Multi Re st/[place] 09-03-2023 [...] Garcia MD, V. 09/03/23 11:43 a Technologist: TARAN [facility] Provider Orderson 09-03-2023 Provider Orders [id number]#1.00OT [facility] Provider Orderson 09-02-2023 Provider Orders [id number]#1.00OTGT IFF [facility] Provider Orders [id number]#1.00OT [facility] Consent Formson 08-24-2023 Consent Forms [id number]#1.00OTGT [facility] Surgical Pathology Reporton 08-16-2023 Surgical Pathology Report (NOTE) [id number] [facility] ANATOMIC PATHOLOGY [address] [place] [address]. [place], [place] [address] SURGICAL PATHOLOGY CONSULTATION Patient Name: GURVINDER CHAUDHRY MR#: [id number] Specimen #[id number] Procedures/Addenda MOLECULAR PATHOLOGY REPORT Date Ordered: 09/16/2023 Status: Signed Out Date Complete: 09/16/2023 By: Obie Marie M.D. Date Reported: 09/16/2023 INTERPRETATION AT THE REQUEST OF DR. MISSAEL TEJADA, BLOCK D1 WAS SENT TO [facility] FOR DECIPHER PROSTATE BIOPSY GENOMIC BEEF BREAKER TESTING. THE RESULTS ARE FOLLOWS: GENOMIC RISK IS: LOW RISK OF METASTASIS WITH RT OR RP: 5 YEAR: 0.5% 10 YEAR: 1.1% RISK OF PROSTATE CANCER MORTALITY WITH RT OR RP: 17 YEAR: 1.2% RISK OF ADVERSE PATHOLOGY AT RP: 18.3% PLEASE SEE [email or web address]' COMPLETE REPORT ([id number]) FOR DETAILS. Case report, all slides and appropriate blocks were retrieved and reviewed and a block appropriate to the molecular testing requested was selected and forwarded. Obie Marie M.D. Final Diagnosis A. PROSTATE, LEFT APEX LATERAL, NEEDLE BIOPSY: [...] APEX MEDIAL, NEEDLE BIOPSY: Benign prostate tissue. Diagnosis Comment Part D is reviewed by a second Pathologist who concurs with the diagnosis ([facility]). Riccardo Hutson Electronically Signed Out 08/19/2023 Clinical Information Pre-op Diagnosis: ELEVATED PSA Operative Findings: PROSTATE BIOPSY X13 Operation Performed: PROSTATE BIOPSY FUSION kb Source: A: LEFT APEX LATERAL B: AREA OF [...] cm in length. Entirely 1cs. jj tm Microscopic Description A-M. Multiple GLORY-stained levels of [...] are negative for racemase. Controls are adequate. Normal [facility] CMP Standardon 07-15-2023 eGFR Non AA >60 Invalid Interpretation Code [facility] [place] [facility] Comment on above: Performed By: #### 1 [id number], 6184369, [id number], 4513618, 1754593, 1564444, 5227623, 5010667 #### [facility] (DEFAULT) [address] [place] [address] eGFR AA >60 Invalid Interpretation Code [facility] [place] [facility] Comment on above: Performed By: #### 1 [id number], 8790107, 5384503058, 9181430, 0926984, 7728443, 5103944, 0382607 #### [facility] (DEFAULT) [address] [place] [address] Albumin [Mass/Vol] 4.5 g/dL Normal 3.5-5.0 [facility] [place] [facility] Comment on above: Performed By: #### 1 [id number], 5698180, 6169587579, 7614583, 2072207, 3919539, 6512700, 5791406 #### [facility] (DEFAULT) [address] [place] [address] Alk Phos 44 IU/L Normal 32-91 [facility] [place] [facility] Comment on above: Performed By: #### 1 [id number], 5579799, 8116679709, 3584873, 7838568, 1281476, 1040819, 7733429 #### [facility] (DEFAULT) [address] [place] [address] ALT [Catalytic activity/Vol] 35.0 U/L Normal 17.0-63.0 [facility] [place] [facility] Comment on above: Performed By: #### 1 [id number], 0328530, 5079201596, 3236013, 1892927, 3040804, 0876012, 3563498 #### [facility] (DEFAULT) [address] [place] [address] AST [Catalytic activity/Vol] 35 U/L Normal 15-41 [facility] [place] [facility] Comment on above: Performed By: #### 1 [id number], 5984638, 7892498958, 2513625, 7702743, 6326047, 3123780, 6471392 #### [facility] (DEFAULT) [address] [place] [address] Bili Total 0.7 mg/dL Normal 0.3-1.2 [facility] [place] [facility] Comment on above: Performed By: #### 1 [id number], 2116816, 2334209788, 1280937, 9868756, 3476623, 3381233, 5393430 #### [facility] (DEFAULT) [address] [place] [address] Calcium [Mass/Vol] 9.4 mg/dL Normal 8.9-10.3 [facility] [place] [facility] Comment on above: Performed By: #### 1 [id number], 8023919, 5362972966, 8961839, 3329367, 1905331, 0192775, 3227518 #### [facility] (DEFAULT) [address] [place] [address] Chloride [Moles/Vol] 102 mmol/L Normal 101-111 [facility] [place] [facility] Comment on above: Performed By: #### 1 319161170, 7456241, 0441549516, 2997161, 8379073, 9187987, 4529846, 8450077 #### [facility] (DEFAULT) [address] [place] [address] 98441 CO2 [Moles/Vol] 30 mmol/L Normal 21-32 [facility] [place] [facility] Comment on above: Performed By: #### 1 101047683, 0043083, 7296623840, 1301979, 2865112, 3921786, 2405906, 8308802 #### [facility] (DEFAULT) [address] [place] [address] 01792 Creatinine [Mass/Vol] 1.15 mg/dL Normal 0.90-1.30 [facility] [place] [facility] Comment on above: Performed By: #### 1 899237906, 7666821, 2528470819, 6004611, 4316112, 7312842, 1097366, 8868718 #### [facility] (DEFAULT) [address] [place] [address] 08344 Glucose [Mass/Vol] 88.0 mg/dL Normal 74.0-118.0 [facility] [place] [facility] Comment on above: Performed By: #### 1 849373347, 1129850, 2124153272, 9097681, 3429213, 3879766, 4137221, 2526218 #### [facility] (DEFAULT) [address] [place] [address] 59465 Potassium [Moles/Vol] 4.1 mmol/L Normal 3.6-5.1 [facility] [place] [facility] Comment on above: Performed By: #### 1 453407801, 8487011, 5534857070, 2608385, 6648746, 2757254, 1541310, 3895179 #### [facility] (DEFAULT) [address] [place] [address] 58931 Protein [Mass/Vol] 7.1 g/dL Normal 6.5-8.1 [facility] [place] [facility] Comment on above: Performed By: #### 1 581106063, 4593922, 9719590795, 7718386, 0390647, 7568186, 9808508, 9184758 #### [facility] (DEFAULT) [address] [place] [address] 30542 Sodium [Moles/Vol] 140.0 mmol/L Normal 136.0-144.0 [facility] [place] [facility] Comment on above: Performed By: #### 1 507316362, 0355923, 4366732247, 2406305, 6329055, 6454900, 1277331, 2041525 #### [facility] (DEFAULT) [address] [place] [address] 92069 Urea nitrogen [Mass/Vol] 25 mg/dL Normal 8-26 [facility] [place] [facility] Comment on above: Performed By: #### 1 143703509, 0835962, 0471794341, 1417088, 1757327, 7281677, 7384732, 7687407 #### [facility] (DEFAULT) [address] [place] [address] 28333 Albumin/Globulin [Mass ratio] 1.7 {ratio} Normal 1.4-2.6 [facility] [place] [facility] Comment on above: Performed By: #### 1 196279913, 5002136, 7310481325, 9813651, 2445219, 8709118, 8706718, 1994583 #### [facility] (DEFAULT) [address] [place] [address] 07876 Anion gap [Moles/Vol] 12.1 mmol/L Normal 5.0-19.0 [facility] [place] [facility] Comment on above: Performed By: #### 1 482728983, 8152252, 9791864225, 5676279, 2807293, 5932096, 0381724, 1650235 #### [facility] (DEFAULT) [address] [place] [address] 89359 Globulin (S) [Mass/Vol] 2.6 g/dL Normal 1.5-4.3 [facility] [place] [facility] Comment on above: Performed By: #### 1 633463618, 6558746, 2151613044, 2768191, 8673130, 7713490, 1873952, 6456365 #### [facility] (DEFAULT) [address] [place] [address] 83208 Osmolality 283 mOsm/L Invalid Interpretation Code [facility] [place] [facility] Comment on above: Performed By: #### 1 341085644, 1450667, 6637760839, 9536290, 4185142, 7801808, 9921265, 1396262 #### [facility] (DEFAULT) [address] [place] [address] 68133 Urea nitrogen/Creatini ne [Mass ratio] 21.7 mg/mg High 4.6-16.2 [facility] [place] [facility] Comment on above: Performed By: #### 1 379559220, 6808983, 4985580372, 4233810, 5425255, 1706840, 9823338, 6405370 #### [facility] (DEFAULT) [address] [place] [address] 90486 GGTon 07-15-2023 Gamma glutamyl transferase [Catalytic activity/Vol] 22.0 U/L Normal 7.0-50.0 [facility] [place] [facility] Comment on above: Performed By: #### 1 150102797, 9468156, 6022771118, 1160044, 2550996, 1525183, 7209074, 9338966 #### [facility] (DEFAULT) [address] [place] [address] 30312 Iron Levelon 07-15-2023 Iron [Mass/Vol] 114.0 ug/dL Normal 45.0-182.0 [facility] [place] [facility] Comment on above: Performed By: #### 1 [id number], 5667184, 5940231961, 0367556, 7264402, 0129812, 4121085, 2613061 #### [facility] (DEFAULT) [address] [place] [address] 55318 LDHon 07-15-2023 LDH 257.0 IU/L High 98.0-192.0 [facility] [place] [facility] Comment on above: Performed By: #### 1 120155126, 7686389, 8358677134, 1293494, 0035029, 4913729, 1973901, 4591390 #### [facility] (DEFAULT) [address] [place] [address] 79196 Lipid Panel Standardon 07-15 Cholesterol [Mass/Vol] 188.0 mg/dL Normal 66.0-200.0 [facility] [place] [facility] Comment on above: Performed By: #### 1 944725936, 1913509, 8925491142, 5204352, 4875766, 1841685, 2457326, 5745254 #### [facility] (DEFAULT) [address] [place] [address] 86086 Cholesterol in HDL [Mass/Vol] 45 mg/dL Normal 40-71 [facility] [place] [facility] Comment on above: Performed By: #### 1 610239079, 5788470, 8687612570, 1365349, 7850613, 6546789, 1427414, 3650817 #### [facility] (DEFAULT) [address] [place] [address] 53579 Triglyceride [Mass/Vol] 130.0 mg/dL Normal 0.0-150.0 [facility] [place] [facility] Comment on above: Performed By: #### 1 430125955, 9568501, 1932927048, 0566408, 4071373, 2881463, 9354635, 2539364 #### [facility] (DEFAULT) [address] [place] [address] 58743 Cholesterol in LDL [Mass/Vol] 117 mg/dL High 1-100 [facility] [place] [facility] Comment on above: Performed By: #### 1 678653668, 7973211, 0910425215, 6882453, 6572824, 2363444, 6316522, 6537793 #### [facility] (DEFAULT) [address] [place] [address] 98582 Cholesterol.total /Cholesterol in HDL [Mass ratio] 4.1 {ratio} Normal 0.0-4.5 [facility] [place] [facility] Comment on above: Performed By: #### 1 427421097, 6964616, 9357989002, 0576924, 3154983, 1225518, 4237557, 5623366 #### [facility] (DEFAULT) [address] [place] [address] VLDL. 26 mg/dL Normal 5-40 [facility] [place] [facility] Comment on above: Performed By: #### 1 915843283, 8823325, 1281063150, 0495404, 8037170, 0464378, 3838665, 4178242 #### [facility] (DEFAULT) [address] [place] [address] PSA Screenon 07-15-2023 PSA Screen 5.97 ng/mL High 0.00-4.00 [facility] [place] [facility] Comment on above: Result Comment: [employer] ACS Global Clinical System (Chemiluminescence) Values obtained with different assay methods or kits cannot be used interchangeably. Results cannot be interpreted as absolute evidence of the presence or absence of malignant disease. Performed By: #### 1 268066539, 8043931, 5070135145, 1934511, 5797368, 5513829, 0390196, 8263092 #### [facility] (DEFAULT) [address] [place] [id number] [place] 07-15-2023 Phosphate [Mass/Vol] 3.2 mg/dL Normal 2.5-4.6 [facility] Comment on above: Performed By: #### 1 [id number] #### [facility] (DEFAULT) [address] [place] [id number] Uric Acidon 07-15-2023 Urate [Mass/Vol] 6.0 mg/dL Normal 4.8-8.7 [facility] Comment on above: Performed By: #### 1 [id number] #### [facility] (DEFAULT) [address] [place] [id number] Encounters Encounter Date Encounter Type Care Provider Facility Start: 09-03-2023 End: 09-08-2023 ambulatory Dev Ch Facility:[facility] Start: 09-02-2023 End: 09-03-2023 ambulatory Eli Santos Facility:[facility] Start: 08-16-2023 End: 08-16-2023 ambulatory MISSAEL TEJADA [facility] Start: 07-20-2023 End: 07-21-2023 ambulatory Dev Ch Facility:[facility] Start: 12-01-2022 ambulatory JAIR CARPENTER Facilit y:H1 Start: 07-16-2022 ambulatory ROS CM Faci lity:H1 Start: 01-28-2022 ambulatory ROS JOHNSONCOLTON Faci lity:H1 Start: 08-28-2017 End: 08-28-2017 Emergency department patient visit DEV CH [facility] Start: 03-02-2017 End: 03-03-2017 Ambulatory DEFAULT PHYSICIAN Facility:[facility] Payers Date Payer Category Payer Unknown [id number] 1965 Unknown [id number] 2.16.84 [id number] 1965 Unknown [id number] 2.16.84 [id number] 1965 Unknown [id number] 2.16.84 [id number] 1965 Unknown [id number] 2.16.8 [id number] 1967 Unknown [id number] 2.16.8 [id number] 1967 Unknown [id number] 2.16.8 [id number] 1959 Unknown [id number] Unknown Summary Purpose Family History No Family [...] section and content) DATE CREATED AUTHOR 03/15/2018 [facility] DATE CREATED AUTHOR AUTHOR'S ORGANIZ ATION 03/16/[address] [facility] DATE CREATED AUTHOR AUTHOR'S ORGANIZ ATION 11/28/2022 [facility] DATE CREATED AUTHOR AUTHOR'S ORGANIZ ATION 09/17/2023 [facility] DATE CREATED AUTHOR AUTHOR'S ORGANIZ ATION 09/21/2023 [facility] FOR RECORDS PERTAINING TO PATIENTS WHO ARE [...] BE BASED ON THE PRIMARY CLINICAL RECORDS. [employer] [facility]. provides no warranty or guarantee of the accuracy or completeness of information in this document.
== END 2023-09-29 15:11 | disposition home or self-care (01) ==
LOC: RAD 15:11
PROVIDERS: PCP Family Medicine; Visit Provider Podiatrist Foot & Ankle Surgery
DX: M19.071 Primary osteoarthritis, right ankle and foot (principal)
CPT/HCPCS: 73610

== ENCOUNTER 2023-10-16 07:49 | Inpatient (IN) | payer OTHER, SELFPAY ==
[2023-10-16] VITALS (8 sets, daily range): BP systolic 128–153; BP diastolic 72–83; PULSE 81–111; RESP 16–20; TEMP 36.2–38; O2SAT 91–98; BMI 34.9; BMI 34.7
--- OUTSIDE RECORDS SUMMARY | 2023-10-16 08:01 | XMS_ITS | CCD ---
Author Name Unknown Address [address] [place] [address] Organization [facility] Care Team Providers Care Commission Sales Associate Name Role Phone DEV CH Unavailable Unavailable QUIN ROBISON Unavailable Unavailabl e PHYSICIAN, DEFAULT Unavailable Unavailable PHYSICIAN, DEFAULT Unavailable Unavailable DVE CH Unavailable Unavailable ROS CM Admitting Unavailable HIGHLANDER, ROS Smith Attending Unavailable ROS CM Consulting Unavailable ROS CM Admitting Unavailable ROS CM Attending Unavailable JAIR CARPENTER Admitting Unavailable JAIR CARPENTER Attending Unavailable MISSAEL TEJADA Admitting Unavailable MISSAEL TEJADA Attending Unavailable DEV CH Primary Care Unavailable Dev Ch Primary Care Unavailable Eli Santos Attending Unavailable Eli Santos Admitting Unavailable Eli Santso Attending Unavailable Eli Santos Admitting Unavailable Dev Ch Primary Care Unavailable Dev Ch Primary Care Unavailable Allergies Allergy Classification Reported Allergen(s) Allergy Type Date of Onset Reaction(s) Facility (3 sources) cephalexin; Translations: [Keflex] Drug Allergy 09-20-2009 AOF [facility] Repository Problems Active Problems Problem Classification Problem [...] Coding Summaryon 09-16-2023 Coding Summary HTMLBase 64 ZvchycasQHw7cMi+PGhlYWQ+ AH5JGQIoZ17imYMinV6zN3OD TElOSywgQVBQTElOSyIgbmFt SF6fwSGmLSPj IC8+AJ0tZFTnTfsahTCrl3S2 fLA9J62ama3pTZtbdYE9DOKj GdBslnblb5zkmEh5JZpbNypi OyBt OHDcuI14MVW7oC12Ld18nBVc lGAsq0lawUh3ClAvODPbENU7 gVvmWEnjj5GcUAJpA87quOJb c2U6 WNTyfHlaiIVvHwXegND5tH3m MNxbkebxw6ikuqmvKkg2ts97 tUOki0Q8lIO9Z7PmqtZ6JMIa bGQg WuplgFYQsN3tgpssl8tslgtm JrMuPLJuADw7GKx8WUCeqRij OrVaIA61PJB6QGYbroScP0Bw LWFs uUahZmE2r3D3Bl5OW5XTKoeu Z4RQTRYKTUgxrML+AH87oj28 G9AkRzjfPzr2GOMzZDL4dAO1 aD0n UKSkTRkaf5C2oUH2W0QsysVe mw3td7mzSIYfTPqsZ02uoRKx p7M3CNEnpWQ4BYQonEbeVxTs aG93 Oyc+QXSazHwqv3PfKqbny4ic x0vrbSr4GrnoKUApoaDyuRow GDF8q7SlIr1pWVCtsNR8kUI9 aD0i HqFmYkQ3XLgbC469QaFekSCm EbyyV51tC7VpkKN+PHRyPjx0 MOYhbFxtZZ3eK7VsQWXnznin bGVm iIvnGU2nNEDcercvEEEgoZ8u MVLtJ3a6DhEzNrQ4PIhtS1Hl UVGemjqzLg14jL7hVwXmRvR1 MGlu L6VnzkD1VEKhqMMhYFhjIAO3 M53wc5I7XJDfNZHlQOT8pGL1 oT4qoMvtguvcwMThjYarmiTu dGlj RFntMHqnA521CFEroTvcSzUv ZGluZyBEYXRlOiAgMTIvMjgv MjAyMzwvdGQ+CAGkFEB2tXhw PSAn oFLwIEwzPk5hmYpaeUdmVW9g UYGtecuxYRPesI2qYXHiyHCc jIvsVS0iWVXazouzj881ZbUb MHB0 NHZisGHyV5LreS5zEwCyGVTq KDYrR1DdvXCvNLhdT164RHna UrQ9JLCkhgBjL3JjNUKdgLwj OiB0 d2M0Nf7Vt1UvxuscG7RcpQHl TiFjTqczCRk5P6ZaVnsqiLU+ UX37EAVhBW20JPq5APD5fTfb PSdi WGVgY0EfvJ6lNqUuRBEbKFVm Oyc+PHRhYmxlIHdpZHRoPScx IVGaVyMwkHihLQ4cFt3lIRDc LWNv zRyghVJlRfGls7rqXKHdNAka GZ7gdYldN1IlwMK9KVMwm1k7 Jr73R70uE3XifFP+PGNvbCB3 aWR0 eD5iEgLiGbA3QFrvK966GiTk fMNmAndfr0cpo9vcbYo8HmA6 XHUotkNqgXqcQFJ4z6IgPl88 Y29s IHdpZHRoPSIxNSUiIHZhbGln ml1qnW1qMj2+ZRZaoRD2cYZ6 mB1vKtMiAaP0JEfmS908IjSc cCIv Zcngt9yej1voeFq2QtGnWWPc iuSoiOcpFUU3r4PsIv92O0Ym jHmjr0NhMee3nc93vYGmz5R5 bGU9 L6MkJNSbwjyvwOGhuMzgXT7h SMVviqroSEQjeV2gRNAdY3h4 XfRiUmA6KEcwQ2SiakK5GGFj bGQg PRQfrHYPpH6qhewgk6nywlhz DeHdPWSwMUx7RFf1PDOjsLup IuPvQNH6CyK0WWX5iTJslM2f bGln siuctE4nXpl+QDD2cCGueQXR BW6zEjxzmON+LNKsFVF7aTor CYswYMIiqH9sUMZvI2z5FmLj LjA1 WGeiQ6FptkP3ZGFvpPGrWDKk vUIBvE6dalogs8lhkpxiHmPg SDKcEOm4LQi4UBLiiDgtCsRk ZWZ0 TmT2HIS5jELmtV3paEiiiziw sD2pQih+XgzsjNduXWQ5RUd3 T1QtEun5ELSdjGsqAH4vgDNi ZGlu Aj2liPtpcWnuZV3pSZXehchq h218RqRcr9jsLXEnuMBkOGtz BHM5S50sh7M3XEHrGGDhCRG2 dGV4 nE9upDyudenezJBpoGijvfHh iWwuXXtcESafK721KQWqbTup TuUcSSw6Y2BvTds6KOIerLls ZT0n mFYqVCwtGa3uhKpwvYbqPE3a NDWnlhvzs968MtUgb4doWKRt yXLkTEqrGLM4G98wn0A0OVNl MDAw UVA1pAM6wE1wsWxwibaliZOd dLdnxfWiiSzwGFrbUXgsK637 HMKcqOnlEtVmxWm9M1XjSdk5 ZCBz sQfdFK1azMWqDEcdQw3uxMez qWvkYQ7uOLBseghcc569GfDb t8nlTEEffKBmOWopILF1D67c b3I6 ZMMqBTEuGDC5eHC6zK9jiWtr bjogbGVmdDsgdmVydGljYWwt AVtyN658DEShfIosGfLfiDvt bnQg JFazSOh5Z0ScKjblaGY+PC90 FRWaQD21eIMufULzq1tvbRz9 GhUiFGXvXRW5sFkbTXvlt9Ht ZXIt L03onHWtm5D9FMItyFykjDGu UjTzwMG1sY5dTTpfpxkmi5cm zahpFrcve8vqag41fS83C64b IHdp DYMsWSExGOXbWMIiqEglok0e fD0sEn4+TWCuyIZ9nDL8nK1l KVMyCrT7SOvoE631HfBpcCNf Pjxj i6bgj8gliGg8IbU0RWWfwvLv jTfaYPK5m7CkFz43V88nIMbc BAMjRFRoNWZyTYQrnDzlpb6e dG9w Ii8+WFGsjHI9rMZ8tP1yUqSh RzR7WZekZ881FyRwmGWsOdee Y91yN4UxlGP+BTCmXvp6OCPo dHls DV9tgSUvGIrwCy1tBIC2HeEc CwFwZGnyP9NaBFEuzvxoglpw xAC7HUHpVSKrxH32Ev7ecYkn MTBw nENQxX8ukwefq6rhtrsdEjCa NCFaXBf7EXa6XNNjtEvhPoHp MJJ5ByK9TIX8uERuzI9tzNdd bjog dX9bH5NjUGUzsnpwRa24bI5v CfSeSaC4DLilAgg+RFVSSVZB O0PtHHmKWranZBmPNV69Q8Ie Pjx0 KOHmyYjgQW0cnLViEQanUp7q hCfjbVpsPE8kSRUmiedoDTUf zP7hQVEomVOhxIktAB8rHCEr bjtm b729GwWwVDK0RKSszDIhW4Dv vK9jXmUzPWJnSXZjB5VnbCWp YZqeG317ZQnrAvN3KBCeqbCr Y2Fs TPXfoTyrRgI3r7N4Nl6sWE2x Cm3wHRL0RI94LJ37dZRgr3T1 aKC2Q0MyGQLzwhsxzrocvUB6 IDAu RSIinE67bBHyXElqDx6il3O0 q304KSEnSWPqaR21Eo3fkBfe WMJbnUWHsR2xoelhs1hltdfh IzAw MLXrWPl0GTt6IMXapAinEbCi KDD0EbP4EVS1jIJdoO7fuUhy wnfykD5yFvs+NTYgWWVhcnM8 L3Rk Kqn3DEFqzGmoWI7yyFMpGKrz Xf6gbEkpuZanKO5kMKJhhrsp LLHskX6lZBJoiDCkmPjnCG3h NTBp fudbg897AaGnMPV1EWObqJBt B9PfmY2dNyGpXXMnYOSbI6Lu fBCqTWgyF872NVmeWyV1MVTd cnRp T7CeWNPysKqiHxS8l2F9Ux7G BReCGZ49JJ66kYHrx0Z0tVQ4 K7YjANNdpttpspnutLD2ZMNx MDUw zN88bOYiZSxhSs9pi9F6g080 QXCnOMFlfH27Da5dkHybYITp jNOGqE3llekzl7defarjHnUc MDAw HPh4XCg6TVJjiIfzSkFdBPU8 RzZ6ZHQ1sJOdzP2kzQnxpcwe hF4mWhy+K2X7cXN2wJUdjKFc biBh IEJlZDwvdGQ+TZ92ku53A0Pl AcbfFzy8WXMrWJZ1uZG4yL2i LSTvEVeyk5U1kPS9Q8HjoyBv ci1j y1djKFIsDXphN42ixMUpp3U4 ZJHfgHG1LNXivKtwZlNteI17 Oyc+WLGkmTrer1ZcYkwsh6rm d2lk yDa1WaIhOWWvadSuvXdeLWL5 r2VeKi03P85hLJvzKGTtWODi FPUeWSCvmMagbk9riK1wSz2+ PGNv mQN5lAA8bR2dFhOoJcH1IFbu F777RmAzeQAtRsiyz2tpu8ss dYv4LpGqDILkdrYweIbgLQU6 b3Ai Gs67H5PwnWfuu7IeAmn0tm55 qQFga8S5fUF9E8FwNTYvvcvc pPOrsTmlKO1eNNTqrbuvPKRp aW5n KHUvS6p6YqGjNgN7OVbaS3Lu tuQ7VCZfqLIrLMAobBYDfA3z kkhsj5vlvbirZjVoEWQeNXn1 ZXh0 KBXqiQjfLkWdQMG4BnT2JUA9 uKGoiD2hsPftotsqaS0dGrz+ VBa6p5fexCIdVB1olXX0DW29 ZD48 bCFzn5U3pUA2G4HlWCMkxysx rvzxgGG5KRQdMYIlnD63Pf6g hNlwXo5zPYCzSED5BXZnaUDp O2Nv cV4fGfCqUWTpXXGsV1VdqAIb ONnmM014KMskUnN0MUZlsiQt N4HaLDWgzFjxNbC4s5Z2Wd7K SU46 OD28YY18sMNoa3J3oBI7O8Ns MNGvalhiehlewHT4DFHpLKNf sN76Qe8ltFgdJb1oQLOuOKU1 IFRp lCSiH1EsvC7pAhUpYRSuVBAz Z5LwdWDbGAggQ805VPzoMbK1 SWGhwlOuI0BjSWHdnKieGpU5 b3A7 Ck0VWs87PU08BS17vQOpk5M3 aHB1L7EoXCTllmguykqqbWQ5 QVXdDWDnqX99Gn8ceUoqJy0i ZCAx KQR4FIJwhCXcZ2YhxN8qFtJh DYCiDUYjO2WzjVGoZUwlW473 GSfnQlY0BCXciyNkT6OjVQXs aWdu EqK2v5I5Wp9MKBretix7F3Db PjwvdHI+RF05LKMeAK55xPJd hBWpk3aoaGq2JpLvNESoBCN4 eWxl PSd (more content not included)... [facility] Coding Summaryon 09-15-2023 Coding Summary HTMLBase 64 LvmzjrioIQm4jYu+PGhlYWQ+ EJ8YHCTyQ58leLOhzH7xV0JD TElOSywgQVBQTElOSyIgbmFt GW0gkKSzZIQs IC8+KJ0pUDVuWipymFXmu5D9 jSX5A95zdz6jRDdcwQN7OUCy RcXmchmap2xawIw8ZBmzQjyt OyBt VFXlzI58QEM1bR84Fn27hATe vBMzn8pukFn0XcYoMFTkNDU0 fJgnFWqem8SvXTSvI60wfTDa c2U6 PAAtbQpvjIXgTmFloKY1jS7z ZPknrubrk5blkeeyOwv4cl52 eRPzk0P2vXG0L1KhrgT7XSBd bGQg RgrgbYDMwF8uofzsv4qyncxy EbRtOSPrPXc7AZy0XCRkkCso OeBpRQ09YNX7IQCxkjSeY4Ly LWFs lJevYuC5q3L8Qy1TO6INFnwc W9EPRTCEKUxctOI+VP93cv26 F3KcTmxwBro9YHPnZCE2oAH1 aD0n MMJgJQlph9E5bQS2B3GbklEv om5mf8fzSFYrYVqmR77jfALy x9M8ECJhoOP0VNHulChxFzAp aG93 Oyc+CGKptAldy2IrWvsxn5rb e0xxoBk2YtxsAJDnpzDsmNwp NEB2j7FxBj7jVQDnkGT1yBC6 aD0i GtDfTxG9WEtnT498MwTcxLRe GblwW43wZ5ExtTQ+PHRyPjx0 EMBvpCxlWS8aS7TkCUJkreht bGVm oIjtZK5qJMNjiuoxKAPjgF2n CUAiB3h0CqZrAtA8SQopF5Ij OMAwhwmeAg80xR9tFjLfLeS9 MGlu F9JhmpM7KGGzwVWjOZnqKLE9 G12dc2Y4UTSoBXOdGFE8nTZ2 sI1wqAmhykdbtWLbbIyefxTh dGlj TWrvBAejB799HEYzbRvhHwWh ZGluZyBEYXRlOiAgMTIvMjcv MjAyMzwvdGQ+IRCuFIR9lZjj PSAn zHZzUAfpAa6jeLtrgRjiSJ9g RWYsnlnmYESdkR0rSXZesJEc fXkoZP4uTZNasigzc608EnQx MHB0 RXBbjXCeB1UnpQ7zJpYfEABc DTPoA0PhxXHnYLptM634RDwx YdU9XFBzapVhK1PqDNSeyGfa OiB0 h0H8Jq3Ci2RnvtbmV1SeuSFa UiDpLgprOJk6K7KvAjqwzUE+ DZ25QCFxAA51HOx2BKG2mEnx PSdi FLLjV4WrfX1iGzQsGLRdBXNb Oyc+PHRhYmxlIHdpZHRoPScx RWVtBmLkaEnyHP1vVz3qKTUg LWNv kDgxoZNlQeYys0geCQIgDMhz PG5beWplG0LnvGJ5MPVnw3m1 Ra03P47cV5NqbXJ+PGNvbCB3 aWR0 yK2zStVuKjN4GOhaP292TaNr oOXdTgyrx8buu4svcBm1FoT5 BMZrlyDfkCcqOSC2e0JjWt03 Y29s IHdpZHRoPSIxNSUiIHZhbGln yc0wuG1eLu1+IVTmsKJ9rHH5 eL5mEeErOjW8UWmnX397DtAo cCIv Adsbh6mke8poxBq0CbZmHPDq veHxfRweHCI3b0FaRl79L2Xi oPbcz9EqWcz2vs62zMCxo0D1 bGU9 C5ZlNXSsiqfhqXFqqMrgWI9x ELNzzoonSZEotE9tXOWwG2t1 JeOhQnG7XGinV4VdhfH0OCIn bGQg FYJuoODPrU2tgycdy7panhof UsArXUGjYNq4LQj9YFWzlZaf ZiFpNAY8OpC0UGX8eQUrfB3w bGln lfdoyL6xRpf+KVW6nDDdyYXK YS9bMjjloZG+VABzDLD2mRxa TAqmHMCjaF2uFQQmX0n3KpBi LjA1 AUovU3HfrlS4YMGfvAAsYONf cDGOkS5aaiija6sacgxaRwSr CJReHUx5PKd3MMPyaKgdNkXi ZWZ0 AyF8FCB4pJJxeT2wcPctoadd sL3lHmm+CymqaCswCJW7VYs4 J1FzJru5CQDaxYoaDP4sgYMj ZGlu Pz5pfZhdgUfaXZ4wYTTisgkp s239SdSgj2qfTJQupGUqEXlb SRB5A03xn7E2UCLrTCJiHNL6 dGV4 lN6kaXbmsxhcoMRwsDsattHt xYdaMPlpQKwwM915ZUNedRqo BhEcLGe4Z1OkZxc5ACZhtSap ZT0n jPYfGAabOh1emWedeMnbKG7a TKLrlykwt260VaLak6yzZMDz dJLdJMncWDY8W38ms5C7CPJi MDAw OIL5sMH2sC1owFsjmelrxSXk hYfqwwRywQrdBUmdDTlwL050 PJLxhIyqMeKepYw1X7RdIsm1 ZCBz mMzrML4aqSWhNThxCr8mdGwt pBtdCH7gNLRqepsej564XyCf y4mdTRFyiYTzPWsxKMT9D70q b3I6 CNEyQDIjFNH6vIG2hO9jpByi bjogbGVmdDsgdmVydGljYWwt HOxmL516HDMjjClgViBmxJhr bnQg FCstEMx3U4LgMpgpqIS+PC90 DDRmGK03mPDrsHJad0jgwBr6 IhYwHLFuAPD6eVsvDKaku3Rl ZXIt I01rvYWsv9A9LXEroXuoaSQd GsMyzNH5cU5jVQvcuytxl0jy zjguHvwnn0tgct95gV47N56p IHdp ZJNhGOYdVYPaWTLrfApoxw3e sZ8xSv1+SLYemJK4bLO9oQ8t CQWzBfD2HTotV919GlEfkLFn Pjxj d9hcf9sphRo2OuI2XDVnotBc rDivNYL9h2OeCm37Z03aEMzt GSCiYHUaLNHsNVXifNaion9w dG9w Ii8+BVDwvCH4rYK6fK5eSiTh JaG9FOovA940PyXrtPBuUltq Y19vE6VunDO+VDTuCnn3POWl dHls YK1lnWSgGMtsRe9fRAV8XjSl ScFvUYijW7EkWCQpinjtmbvb aSG8JELwTUBdlE84Bm9xiXvm MTBw gBKDvP3wgdjnw0ifdjwoOhKn WJFwEGc2EDm0ALHdaMfuOlUz REC0YsV9UFC7hSJyrE8mqKua bjog zW7fL3UgTMNqmixaNx58hC6m VnJnUbD7CUicTbl+RFVSSVZB N3OoGNzBDrumHIoOSF14Q4Or Pjx0 QOOluFsmMS6ooWOkEHjaYm7f oBuhuJowII7wYPTuskpdMOEm aE4qZGVneFYwqRzdME2nWTKz bjtm t395EkHlRJI7SOCkvSTnU6Ux wG8dViMaFLBeFDLdA0AypHQh XPpqA039ZXkkAoW4MEPdhoZm Y2Fs QWLccImrLaX6m5E1No6wTI4g Ty2iBLW9JH98NS56rPVob5R9 rUQ9F7AaOKIvhuomdzhhfIP0 IDAu OURzuZ95lUSsDVmuSe6hw9H9 k332IVZhSFRmlB69Bz5idLfd YBDwsAVXeG7sgajrj0fowjtm IzAw QJFfGWz4EXr1TSCkcGldJfPt KGY5DeD8IPT3xKXacE6xuZts ouxtnY7vGuk+NTYgWWVhcnM8 L3Rk Nlh7NPOxsWiaZB1nySXlLPmk Ey4xkBluhJtrDO0hBCFutoai PRMvzC3lLMNpyQGrlDvbET5p NTBp fjjsq214BfIlNLN9EFAcyIFm Q3DlxA3aZwUaKPCkGSQmF4Ej lPAbXJcuH318GVriXgZ1HELy cnRp S7FiMTOqmXlsEeR2d6R2Ab5F XZtAFE03LW30eXEix7E4pRS6 B9HhBBGypxbgcpbibIM1VEHr MDUw nZ19iADpFTblNq7eq2W7u719 IHFfJNShcU20Wp1wjAvjZCWs vUJOoL5ibhkyl1bxfszbFeRp MDAw DTs7HJo5NPSkcTzjYsRiWKZ0 SpE9EBP1dQIhyY3emBpnuxgo iK9fNik+M2V7R8MgCiskjSZ+ PC90 AOUoZE36mUStsBIxk3bhtQb2 SbWhEZSrOJS5xUjrCHqcz5Ii EPXvV84dxHCbk4I2KSNcvRhj cHNl SsNujZM1xS9pPFmxeluxm7ub irqsYwihl9fzii24yO19W53u IHdpZHRoPSIzMCUiIHZhbGln bj0i iC5eQj3+SUPtyAR2zRK5kI1k KgYeXmZ9RKvbO519NoTvvBGj Rtcie9nmf2lvdNg5QtZmAQIx dmFs fTvaFHM3l7AkLk97M91sXQrn TOWfHFKaGROjZRCxiVziat6b eF8kQn0+GJ8dz8navm59hT89 dHI+ DYFjHYQ1jBswOMoxQYMalP9e KKdkWlH6OEAwRsXwkT21tIWj WTwiHy8laVfkaXxtCI3cJSYn bjtm p857YdAor1wrAMDfwSNxHQgd JYA4U78mg6J4XWTtUFXyLBB4 mAT4yZ7pqIgqtmbzeLXhnOmn dmVy wPeoEEkhUGfvV255TZQmiJko LcUupGAjQ8qfuhBDAB7yArql dGQ+TUNuUEN4bEzrMQagWAQk aW5n KJKdQ5h9PvRiPnQ0VSfqZ8Yy xjC8PJFmnVWkSHFonCZFmD4r rwfox5jclmsiMwQpHKGgNYt0 ZXh0 KBQmsFaxMdZmPBL0CzQ4CDK2 xSUdkH3viGnrobajqR6cNng+ RklOOjwvdGQ+BDLxIYI7zJtb PSdw GMOjpU0wHUExI8g7VhWkWrO0 UGwyQ8LmzcX1GJTaqOFpIVQp vDFFmJ5nmxxqz8mkrnwvIjQf MDAw UWd2KLz6CRSfoHryVxYhBIB7 AcW1VUF0jRWekO1kbKlkhbpw dS2uVry+TVJOOjwvdGQ+PHRk IHN0 uSrcAPcqRKUtcB8bYWBfJ6s1 HiTgHbX7WBbjI1QdqfL1NBMg gCTqLTGmhVACgE0jzjham7ur cjog NmFcFJJpRXn0GFq6ELPauDlt SyKpEAA0XtC8VZW4bGVhxB1s fZkhnxobnF0cRzq+PSP9QWH4 PC90 OT19J1GvPogmmVKgwRT+PHRh YmxlIHdpZHRoPScxMDAlJyBz xTkeEU7iLj0lOFTkXPZreVck cHNl OiB (more content not included)... [facility] Consent Formson 09-06-2023 Consent Forms [id number]#1.00OTG TIFF [facility] Stress Teston 09-06-2023 Stress Test [id number]#1.00OTG TIFF [facility] CV Stress ECGon 09-03-2023 CV Stress [...] reported separately. Jaskaran Tejeda MD JOB #: [id number] ul Final Dictated by: Jaskaran Tejeda MD Dictated DT/TM: 09/03/23 10:07 Signed (Electronic Signature): Jaskaran Tejeda MD 09/21/23 8:26 am Technologist: ADE [facility] NM Myocardial Spect Multi Re st/Stresson [...] MD, V. 09/03/23 11:43 a Technologist: TARAN [facility] Provider Orderson 09-03-2023 Provider Orders [id number]#1.00OT [facility] Provider Orderson 09-02-2023 Provider Orders [id number]#1.00OTGT IFF [facility] Provider Orders [id number]#1.00OT [facility] Consent Formson 08-24-2023 Consent Forms [id number]#1.00OTGT [facility] Surgical Pathology Reporton 08-16-2023 Surgical Pathology Report (NOTE) [id number] [facility] ANATOMIC PATHOLOGY [address] [place] [address]. [place], [place] [address] SURGICAL PATHOLOGY CONSULTATION Patient Name: GURVINDER CHAUDHRY MR#: [id number] Specimen #[id number] Procedures/Addenda MOLECULAR PATHOLOGY REPORT Date Ordered: 09/16/2023 Status: Signed Out Date Complete: 09/16/2023 By: Obie Marie M.D. Date Reported: 09/16/2023 INTERPRETATION AT THE REQUEST OF DR. 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 THE RESULTS ARE FOLLOWS: GENOMIC RISK IS: LOW RISK OF METASTASIS WITH RT OR RP: 7 YEAR: 0.5% 12 YEAR: 1.1% RISK OF PROSTATE CANCER MORTALITY WITH RT OR RP: 17 YEAR: 1.2% RISK OF ADVERSE PATHOLOGY AT RP: 18.3% PLEASE SEE [facility]' COMPLETE REPORT ([id number]) FOR DETAILS. Case report, all slides and [...] second Pathologist who concurs with the diagnosis ([facility]). Riccardo Hutson Electronically Signed Out 08/19/2023 Clinical [...] negative for racemase. Controls are adequate. Normal [facility] CMP Standardon 07-15-2023 eGFR Non AA >60 Invalid Interpretation Code [facility] Comment on above: Performed By: #### 1 [id number], 2525908, [id number], 8614984, 6146639, 5941529, 7050022, 2508388 #### [facility] (DEFAULT) [address] [place] [address] eGFR AA >60 Invalid Interpretation Code [facility] Comment on above: Performed By: #### 1 [id number], 9016729, 5825013016, 4801266, 9103074, 1501107, 4462339, 4490558 #### [facility] (DEFAULT) [address] [place] [address] Albumin [Mass/Vol] 4.5 g/dL Normal 3.5-5.0 [facility] Comment on above: Performed By: #### 1 [id number], 4314966, 5722213530, 2211848, 6803125, 1197853, 3576206, 6349007 #### [facility] (DEFAULT) [address] [place] [address] Alk Phos 44 IU/L Normal 32-91 [facility] Comment on above: Performed By: #### 1 [id number], 9112147, 7189774574, 5816600, 2433970, 4450671, 8596429, 0460791 #### [facility] (DEFAULT) [address] [place] [address] ALT [Catalytic activity/Vol] 35.0 U/L Normal 17.0-63.0 [facility] Comment on above: Performed By: #### 1 [id number], 3113398, 5280307367, 9971075, 3045791, 1333874, 1322235, 0309973 #### [facility] (DEFAULT) [address] [place] [address] AST [Catalytic activity/Vol] 35 U/L Normal 15-41 [facility] Comment on above: Performed By: #### 1 [id number], 4095179, 1607473021, 5208995, 0606570, 5779011, 9104989, 5889269 #### [facility] (DEFAULT) [address] [place] [address] Bili Total 0.7 mg/dL Normal 0.3-1.2 [facility] Comment on above: Performed By: #### 1 [id number], 0659044, 4336734433, 4573740, 4858924, 2256978, 7085346, 8760078 #### [facility] (DEFAULT) [address] [place] [address] Calcium [Mass/Vol] 9.4 mg/dL Normal 8.9-10.3 [facility] Comment on above: Performed By: #### 1 [id number], 0705175, 7120565335, 1142812, 1087760, 2899851, 7796996, 9380604 #### [facility] (DEFAULT) [address] [place] [address] 28650 Chloride [Moles/Vol] 102 mmol/L Normal 101-111 [facility] Comment on above: Performed By: #### 1 [id number], 0557509, 5010098867, 9091195, 4422132, 0439374, 1682653, 1078021 #### [facility] (DEFAULT) [address] [place] [address] 76550 CO2 [Moles/Vol] 30 mmol/L Normal 21-32 [facility] Comment on above: Performed By: #### 1 [id number], 5231433, 5349710369, 7957612, 8178900, 5058703, 2872699, 7934349 #### [facility] (DEFAULT) [address] [place] [address] 08292 Creatinine [Mass/Vol] 1.15 mg/dL Normal 0.90-1.30 [facility] Comment on above: Performed By: #### 1 [id number], 8890159, 9432438538, 7196880, 1294158, 9824130, 2091141, 7520977 #### [facility] (DEFAULT) [address] [place] [address] 52306 Glucose [Mass/Vol] 88.0 mg/dL Normal 74.0-118.0 [facility] Comment on above: Performed By: #### 1 [id number], 2688995, 0484113143, 2078745, 4444192, 0780087, 1081923, 0113200 #### [facility] (DEFAULT) [address] [place] [address] 52776 Potassium [Moles/Vol] 4.1 mmol/L Normal 3.6-5.1 [facility] Comment on above: Performed By: #### 1 [id number], 7254220, 3451437940, 6792472, 9903555, 7691337, 1633213, 0694422 #### [facility] (DEFAULT) [address] [place] [address] 19021 Protein [Mass/Vol] 7.1 g/dL Normal 6.5-8.1 [facility] Comment on above: Performed By: #### 1 [id number], 9162360, 1789030954, 0355838, 8217879, 7909292, 7732506, 8701477 #### [facility] (DEFAULT) [address] [place] [address] 78631 Sodium [Moles/Vol] 140.0 mmol/L Normal 136.0-144.0 [facility] Comment on above: Performed By: #### 1 [id number], 4484151, 0722666541, 3114855, 6919212, 0671013, 4355367, 7435989 #### [facility] (DEFAULT) [address] [place] [address] 66565 Urea nitrogen [Mass/Vol] 25 mg/dL Normal 8-26 [facility] Comment on above: Performed By: #### 1 [id number], 1940856, 3518324900, 7870981, 8728311, 6236767, 5970724, 2482549 #### [facility] (DEFAULT) [address] [place] [address] 29660 Albumin/Globulin [Mass ratio] 1.7 {ratio} Normal 1.4-2.6 [facility] Comment on above: Performed By: #### 1 [id number], 4969483, 8419623974, 5311101, 9656904, 5273812, 3768596, 9285890 #### [facility] (DEFAULT) [address] [place] [address] 05562 Anion gap [Moles/Vol] 12.1 mmol/L Normal 5.0-19.0 [facility] Comment on above: Performed By: #### 1 [id number], 7882792, 6057840941, 2317413, 5729530, 3169878, 6096967, 8075785 #### [facility] (DEFAULT) [address] [place] [address] 93159 Globulin (S) [Mass/Vol] 2.6 g/dL Normal 1.5-4.3 [facility] Comment on above: Performed By: #### 1 [id number], 9956952, 1511942199, 0682544, 6849895, 6678087, 5041179, 9754625 #### [facility] (DEFAULT) [address] [place] [address] 39615 Osmolality 283 mOsm/L Invalid Interpretation Code [facility] Comment on above: Performed By: #### 1 [id number], 3805876, 6919265528, 9551799, 9224114, 9597267, 8966251, 8213211 #### [facility] (DEFAULT) [address] [place] [address] 38157 Urea nitrogen/Creatini ne [Mass ratio] 21.7 mg/mg High 4.6-16.2 [facility] Comment on above: Performed By: #### 1 158495042, 7559310, 7872465333, 7975412, 6402187, 3227866, 0343903, 8497600 #### [facility] (DEFAULT) [address] [place] [address] 16124 GGTon 07-15-2023 Gamma glutamyl transferase [Catalytic activity/Vol] 22.0 U/L Normal 7.0-50.0 [facility] Comment on above: Performed By: #### 1 [id number], 8041399, 5317525676, 2343460, 8933608, 5244843, 0768246, 5619149 #### [facility] (DEFAULT) [address] [place] [address] 56743 Iron Levelon 07-15-2023 Iron [Mass/Vol] 114.0 ug/dL Normal 45.0-182.0 [facility] Comment on above: Performed By: #### 1 [id number], 4724086, 3837359994, 9685094, 5203736, 4711980, 7575624, 2947407 #### [facility] (DEFAULT) [address] [place] [address] 31803 LDHon 07-15-2023 LDH 257.0 IU/L High 98.0-192.0 [facility] Comment on above: Performed By: #### 1 450794054, 9211157, 4044628641, 2701303, 6082352, 5987349, 3118123, 9731411 #### [facility] (DEFAULT) [address] [place] [address] 80727 Lipid Panel Standardon 07-15 Cholesterol [Mass/Vol] 188.0 mg/dL Normal 66.0-200.0 [facility] Comment on above: Performed By: #### 1 [id number], 9701502, 9266118062, 4318419, 1971461, 0406063, 9730673, 4910880 #### [facility] (DEFAULT) [address] [place] [address] 65096 Cholesterol in HDL [Mass/Vol] 45 mg/dL Normal 40-71 [facility] Comment on above: Performed By: #### 1 [id number], 0827539, 4188391592, 7526181, 2311226, 5939423, 8532528, 0665672 #### [facility] (DEFAULT) [address] [place] [address] 52931 Triglyceride [Mass/Vol] 130.0 mg/dL Normal 0.0-150.0 [facility] Comment on above: Performed By: #### 1 [id number], 9432477, 1282590917, 7334201, 5533386, 7274340, 9423716, 1658928 #### [facility] (DEFAULT) [address] [place] [address] 48680 Cholesterol in LDL [Mass/Vol] 117 mg/dL High 1-100 [facility] Comment on above: Performed By: #### 1 241358134, 3032308, 6243300357, 4533946, 3841526, 0397617, 5434152, 8469429 #### [facility] (DEFAULT) [address] [place] [address] 76995 Cholesterol.total /Cholesterol in HDL [Mass ratio] 4.1 {ratio} Normal 0.0-4.5 [facility] Comment on above: Performed By: #### 1 [id number], 0766567, 2083415328, 8178786, 5370091, 4376552, 7640311, 2054212 #### [facility] (DEFAULT) [address] [place] [address] VLDL. 26 mg/dL Normal 5-40 [facility] Comment on above: Performed By: #### 1 [id number], 3076702, 3499239817, 0683795, 3525817, 6465174, 0606615, 8633857 #### [facility] (DEFAULT) [address] [place] [address] PSA Screenon 07-15-2023 PSA Screen 5.97 ng/mL High 0.00-4.00 [facility] Comment on above: Result Comment: Content [employer] Clinical System (Chemiluminescence) Values obtained with different assay methods or kits cannot be used interchangeably. Results cannot be interpreted as absolute evidence of the presence or absence of malignant disease. Performed By: #### 1 [id number], 2032158, 1507673983, 7962878, 6028362, 9700413, 5409130, 8423653 #### [facility] (DEFAULT) [address] [place] [address] 40606 Phoson 07-15-2023 Phosphate [Mass/Vol] 3.2 mg/dL Normal 2.5-4.6 [facility] Comment on above: Performed By: #### 1 [id number], 0222166, 9398617648, 3673304, 2674398, 9278896, 1292116, 7742723 #### [facility] (DEFAULT) [address] [place] [address] 15552 Uric Acidon 07-15-2023 Urate [Mass/Vol] 6.0 mg/dL Normal 4.8-8.7 [facility] Comment on above: Performed By: #### 1 [id number], 6862821, 1545477004, 8378501, 1859133, 1885640, 0923244, 7659465 #### [facility] (DEFAULT) [address] [place] [address] 13120 Encounters Encounter Date Encounter Type Care Provider Facility Start: 09-03-2023 End: 09-08-2023 ambulatory Dev Ch Facility:[facility] Start: 09-02-2023 End: 09-03-2023 ambulatory Eli Santos Facility:[facility] Start: 08-16-2023 End: 08-16-2023 ambulatory MISSAEL TEJADA [facility] Start: 07-20-2023 End: 07-21-2023 ambulatory Dev Ch Facility:[facility] Start: 12-01-2022 ambulatory JAIR CARPENTER Facilit y:H1 Start: 07-16-2022 ambulatory ROS CM Faci lity:H1 Start: 01-28-2022 ambulatory ROS JOHNSONCOLTON Faci lity:H1 Start: 08-28-2017 End: 08-28-2017 Emergency department patient visit DEV CH [facility] Start: 03-02-2017 End: 03-03-2017 Ambulatory DEFAULT PHYSICIAN Facility:[facility] Payers Date Payer Category Payer Unknown [id number] 1965 Unknown [id number] 2.16.84 [id number] 1965 Unknown [id number] 2.16.84 [id number] 1965 Unknown [id number] 2.16.84 [id number] 1965 Unknown [id number] 2.16.8 [id number] 1965 Unknown [id number] 2.16.8 [id number] 1965 Unknown [id number] 2.16.8 [id number] 1957 Unknown [id number] Unknown Summary Purpose Family History No Family [...] section and content) DATE CREATED AUTHOR 03/15/2018 [facility] DATE CREATED AUTHOR AUTHOR'S ORGANIZ ATION 03/16/2018 [facility] DATE CREATED AUTHOR AUTHOR'S ORGANIZ ATION 11/28/2022 [facility] DATE CREATED AUTHOR AUTHOR'S ORGANIZ ATION 09/17/2023 [facility] DATE CREATED AUTHOR AUTHOR'S ORGANIZ ATION 09/21/2023 [facility] FOR RECORDS PERTAINING TO PATIENTS WHO [...] BE BASED ON THE PRIMARY CLINICAL RECORDS. [employer] [facility]. provides no warranty or guarantee of the accuracy or completeness of information in this document.
--- NOTE | 2023-10-16 08:05 | ED.EXTPRO1 ---
HPI - Extremity Problem General Chief complaint: Extremity Problem, Nontraumatic Stated complaint: SURGERY COMPLICATIONS Time Seen by Provider: 10/16/23 08:00 Source: patient Mode of arrival: Wheelchair Limitations: no limitations History of Present Illness HPI Narrative: 58-year-old male presents to the emergency department for pain in his right ankle. He had surgery in late August and recently had the sutures removed. Beginning last night he developed increasing pain and it severe. He took two Percocet but it didn't help. He was noted to have a fever at triage. He's had no cough or abdominal pain or shortness of breath. He's been putting ice and heat on the ankle area. No new injury. Related Data Home Medications Medication Instructions Recorded Confirmed allopurinol 100 mg tablet 100 mg PO DAILY 08/25/23 09/10/23 aspirin 81 mg tablet,delayed 81 mg PO DAILY 08/25/23 09/10/23 release (Adult Aspirin Regimen) cholecalciferol (vitamin D3) 25 1,000 unit PO DAILY 08/25/23 09/10/23 mcg (1,000 unit) capsule lisinopril 20 1 tab PO DAILY 08/25/23 09/10/23 mg-hydrochlorothiazide 25 mg tablet metoprolol succinate 50 mg 50 mg PO DAILY 08/25/23 09/10/23 tablet,extended release 24 hr pitavastatin calcium 4 mg tablet 4 mg PO DAILY 08/25/23 09/10/23 Previous Rx's Medication Instructions Recorded aspirin 81 mg tablet,delayed 81 mg PO BID 30 days #60 tabs 09/10/23 release (Adult Low Dose Aspirin) cholecalciferol (vitamin D3) 125 125 mcg PO DAILY 90 days #90 caps 09/10/23 mcg (5,000 unit) capsule docusate sodium 100 mg capsule 100 mg PO BID PRN constipation 7 09/10/23 (Colace) days #14 caps doxycycline hyclate 100 mg capsule 100 mg PO BID 7 days #14 caps 09/10/23 ondansetron 4 mg disintegrating 4 mg PO Q8H PRN nausea and 09/10/23 tablet vomiting 5 days #15 tabs oxycodone-acetaminophen 5 mg-325 1 tab PO Q6H PRN pain 7 days #28 09/10/23 mg tablet (Percocet) tabs tizanidine 2 mg tablet 2 mg PO TID PRN muscle spasticity 09/10/23 7 days #21 tabs oxycodone-acetaminophen 5 mg-325 1 tab PO Q6H PRN pain 7 days #28 09/24/23 mg tablet (Percocet) tabs Allergies Allergy/AdvReac Type Severity Reaction Status Date / Time cephalexin [From Keflex] Allergy Hives Verified 08/25/23 14:54 Review of Systems ROS Narrative A ten point review of systems is negative except as noted above. [facility] Medical History (Updated 10/16/23 @ 09:28 by Ben Medrano MD) Impingement of right ankle joint ?M25.871 - Other specified joint disorders, right ankle and foot (ICD-10) Osteochondritis dissecans ?M93.20 - Osteochondritis dissecans of unspecified site (ICD-10) Ankle arthritis ?M19.079 - Primary osteoarthritis, unspecified ankle and foot (ICD-10) Migraine ?G43.909 - Migraine, unspecified, not intractable, without status migrainosus (ICD-10) Elevated PSA ?R97.20 - Elevated prostate specific antigen [PSA] (ICD-10) Kidney stones ?N20.0 - Calculus of kidney (ICD-10) High cholesterol ?E78.00 - Pure hypercholesterolemia, unspecified (ICD-10) Hypertension ?I10 - Essential (primary) hypertension (ICD-10) S/P extracorporeal shock wave therapy ?Z98.890 - Other specified postprocedural states (ICD-10) Prostate cancer (08/2023) ?C61 - Malignant neoplasm of prostate (ICD-10) Surgical History (Updated 09/15/23 @ 00:00 by ) S/P surgical manipulation of ankle joint ?Z98.890 - Other specified postprocedural states (ICD-10) Hx of prostate biopsy (~08/16/23) ?Z98.890 - Other specified postprocedural states (ICD-10) History of colonoscopy ?Z98.890 - Other specified postprocedural states (ICD-10) History of foot surgery ?Z98.890 - Other specified postprocedural states (ICD-10) History of ankle surgery ?Z98.890 - Other specified postprocedural states (ICD-10) Family History (Updated 08/25/23 @ 15:03 by Tania Kinney NP) Other Family history of hypertension Family history of stroke Social History (Updated 08/25/23 @ 14:58 by Tania Kinney NP) Within the past year, how often did you have a drink containing alcohol: 2-3 times a week Smoking status: Never smoker Non-prescribed substance use: denies use 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 General: The patient appears uncomfortable. Skin: Warm, dry, no pallor noted. There is no rash noted. Head: Normocephalic, atraumatic Eye: Normal conjunctiva, no drainage Ears, Nose, Mouth, and Throat: oral mucosa is moist. Nares patent. Cardiovascular: Regular Rate and Rhythm Respiratory: Patient is in no distress, no accessory muscle use, lungs are clear to auscultation, no wheezing, rales or rhonchi Back: non-tender GI: soft and nontender Musculoskeletal: right foot and ankle are examined. The surgical wound is healing well, no dehiscence. The dorsum of the foot and anterior ankle however are erythematous and warm to touch. Neurological: A&O, normal speech Psychiatric: Cooperative Constitutional Vital Signs, click to edit/add: Last Vital Signs Temp 100.4 F 10/16/23 07:53 Pulse 111 H 10/16/23 07:53 Resp 20 10/16/23 07:53 BP 153/83 H 10/16/23 07:53 Pulse Ox 98 10/16/23 07:53 Course Vital Signs Vital signs: Vital Signs Temperature 100.4 F 10/16/23 07:53 Pulse Rate 111 H 10/16/23 07:53 Respiratory Rate 20 10/16/23 07:53 Blood Pressure 153/83 H 10/16/23 07:53 Pulse Oximetry 98 10/16/23 07:53 Temperature 100.4 F 10/16/23 07:53 Pulse Rate 111 H 10/16/23 07:53 Respiratory Rate 20 10/16/23 07:53 Blood Pressure 153/83 H 10/16/23 07:53 Pulse Oximetry 98 10/16/23 07:53 MDM - Extremity (Nontraumatic) MDM Narrative Medical decision making narrative: My clinical impression is that he has cellulitis. White count is normal. Blood cultures are obtained and I spoke to Dr. Caldera. We are starting him on IV vancomycin here and he is being admitted. Treatment diagnosis and disposition were discussed with the patient. Differential Diagnosis Differential diagnosis: Likely other (cellulitis, abscess) Lab Data Attestation: I reviewed the patient's lab results. Labs: Lab Results 10/16/23 Range/Units 08:18 WBC 9.6 (4.0-11.0) 10^3/uL RBC 4.71 (4.70-6.10) 10^6/uL Hgb 13.8 L (14.0-18.0) g/dL Hct 42.4 (42.0-54.0) % MCV 90.0 (80.0-94.0) fL MCH 29.3 (25.9-34.0) pg MCHC 32.5 (29.9-35.2) g/dL RDW 13.6 (11.0-15.0) % Plt Count 178 (150-450) 10^3/uL MPV 9.9 (9.5-13.5) fL Neut % (Auto) 87.6 H (43.0-75.0) % Lymph % (Auto) 5.9 L (20.5-60.0) % [place] % (Auto) 5.2 (1.7-12.0) % Eos % (Auto) 0.6 L (0.9-7.0) % Baso % (Auto) 0.4 (0.2-2.0) % Neut # (Auto) 8.4 H (1.4-6.5) 10^3/uL Lymph # (Auto) 0.6 L (1.2-3.8) 10^3/uL [place] # (Auto) 0.5 (0.3-0.8) 10^3/uL Eos # (Auto) 0.1 (0.0-0.7) 10^3/uL Baso # (Auto) 0.0 (0.0-0.1) 10^3/uL Abs Immat Gran (auto) 0.03 (0.00-0.03) 10^3/uL Imm/Tot Granulo (auto) 0.3 (0.0-0.5) % Sodium 137 (136-145) mmol/L Potassium 3.6 (3.5-5.1) mmol/L Chloride 100 (98-107) mmol/L Carbon Dioxide 29.4 (21.0-32.0) mmol/L Anion Gap 11.2 BUN 23.0 H (7.0-18.0) mg/dL Creatinine 1.23 (0.70-1.30) mg/dL Est GFR ( Amer) >60 (>=60) Est GFR (Non-Af Amer) >60 (>=60) BUN/Creatinine Ratio 18.7 Glucose 107 H (74-106) mg/dL Calcium 8.8 (8.5-10.1) mg/dL Imaging Data foot x-ray: Radiologist's impression: ITS Impressions Ankle X-Ray 10/16/23 08:06 IMPRESSION: 1. Soft tissue swelling anterior to the ankle and over dorsum of foot which is slightly increased compared to prior study; edema versus cellulitis. 2. Stable postsurgical changes without evidence of fracture or change in alignment. Electronically authenticated by: SHERI ALEXANDRA Date: 10/16/2023 08:47 Discharge Plan Discharge Chief Complaint: Extremity Problem, Nontraumatic Clinical Impression: Cellulitis Patient Disposition: Admitted As Inpatient Time of Disposition Decision: 09:28 Condition: Good Prescriptions / Home Meds: No Action allopurinol 100 mg tablet 100 mg PO DAILY lisinopril-hydrochlorothiazide 20-25 mg tablet 1 tab PO DAILY metoprolol succinate 50 mg tablet extended release 24 hr 50 mg PO DAILY pitavastatin calcium 4 mg tablet 4 mg PO DAILY aspirin [Adult Aspirin Regimen] 81 mg tablet,delayed release (DR/EC) 81 mg PO DAILY Hold Instructions: Order Change cholecalciferol (vitamin D3) 25 mcg (1,000 unit) capsule 1,000 unit PO DAILY doxycycline hyclate 100 mg capsule 100 mg PO BID 7 Days Qty: 14 0RF aspirin [Adult Low Dose Aspirin] 81 mg tablet,delayed release (DR/EC) 81 mg PO BID 30 Days Qty: 60 0RF oxycodone-acetaminophen [Percocet] 5-325 mg tablet 1 tab PO Q6H PRN (Reason: pain) 7 Days Qty: 28 0RF docusate sodium [Colace] 100 mg capsule 100 mg PO BID PRN (Reason: constipation) 7 Days Qty: 14 0RF ondansetron 4 mg tablet,disintegrating 4 mg PO Q8H PRN (Reason: nausea and vomiting) 5 Days Qty: 15 0RF cholecalciferol (vitamin D3) 125 mcg (5,000 unit) capsule 125 mcg PO DAILY 90 Days Qty: 90 0RF tizanidine 2 mg tablet 2 mg PO TID PRN (Reason: muscle spasticity) 7 Days Qty: 21 0RF oxycodone-acetaminophen [Percocet] 5-325 mg tablet 1 tab PO Q6H PRN (Reason: pain) 7 Days Qty: 28 0RF Referrals: DOROTHY PERLA [Primary Care Provider] - 1 week
--- NOTE | 2023-10-16 08:06 | XR_ITS ---
The [address] [address] Patient Name: GURVINDER CHAUDHRY MRN: [id number] date: 1965 Sex: M Assigned Patient Location: ED.MAIN Current Patient Location: ER Accession/Order Number: [id number] Exam Date: 10/16/2023 08:28 Report Date: 10/16/2023 08:47 At the request of: KATIE TSANG Procedure: XR ankle RT min 3V PROCEDURE: XR ankle RT min 3V HISTORY: post op pain COMPARISON: XR ankle right 09/29/2023 FINDINGS: BONES:Prior prosthetic replacement of the talus. No bone fracture, dislocation, or change in alignment. SOFT TISSUES:Anterior dorsal soft tissue swelling. EFFUSION:None visible. OTHER: Negative. XR/XR ankle RT min 3V IMPRESSION: 1. Soft tissue swelling anterior to the ankle and over dorsum of foot which is slightly increased compared to prior study; edema versus cellulitis. 2. Stable postsurgical changes without evidence of fracture or change in alignment. Electronically authenticated by: SHERI ALEXANDRA Date: 10/16/2023 08:47
[2023-10-16] MEDS: ACETAMINOPHEN 325 MG TABLET 650 MG PO ×2 (08:36→15:47)
[2023-10-16] MEDS: HYDROMORPHONE HCL 1 MG/ML CARTRIDGE IV ×3 (08:36→10:51)
[2023-10-16 08:38] LABS: Basophils Percent Auto 0.4 % (0.2-2.0); Eosinophils Absolute Auto 0.1 10^3/uL (0.0-0.7); Eosinophils Percent Auto 0.6 % (0.9-7.0); Hematocrit 42.4 % (42.0-54.0); Hemoglobin 13.8 g/dL (14.0-18.0); Immature Granulocytes Abs Auto 0.03 10^3/uL (0.00-0.03); Immature Granulocytes Pct Auto 0.3 % (0.0-0.5); Lymphocytes Absolute Auto 0.6 10^3/uL (1.2-3.8); Lymphocytes Percent Auto 5.9 % (20.5-60.0); Mean Corpuscular HGB Conc 32.5 g/dL (29.9-35.2); Mean Corpuscular Hemoglobin 29.3 pg (25.9-34.0); Mean Platelet Volume 9.9 fL (9.5-13.5); Monocytes Absolute Auto 0.5 10^3/uL (0.3-0.8); Monocytes Percent Auto 5.2 % (1.7-12.0); Neutrophils Absolute Auto 8.4 10^3/uL (1.4-6.5); Neutrophils Percent Auto 87.6 % (43.0-75.0); Platelet Count 178 10^3/uL (150-450); Red Blood Count 4.71 10^6/uL (4.70-6.10); Red Cell Distribution Width 13.6 % (11.0-15.0); White Blood Count 9.6 10^3/uL (4.0-11.0)
[2023-10-16 08:45] LABS: Anion Gap 11.2; BUN Creatinine Ratio 18.7; Calcium 8.8 mg/dL (8.5-10.1); Carbon Dioxide 29.4 mmol/L (21.0-32.0); Chloride 100 mmol/L (98-107); Estimated GFR (African America >60 (>=60); Estimated GFR (Non-African Ame >60 (>=60); Glucose 107 mg/dL (74-106); Potassium 3.6 mmol/L (3.5-5.1); Sodium 137 mmol/L (136-145)
[2023-10-16] MEDS: VANCOMYCIN HCL 1,750 MG in 0.9 % SODIUM CHLORIDE 500 ML 250 MG IV (09:49)
[2023-10-16] MEDS: KETOROLAC TROMETHAMINE 30 MG/ML VIAL IVP ×2 (11:46→17:55)
--- NOTE | 2023-10-16 13:32 | P.HP_ITS ---
H&P: HPI History of Present Illness Chief complaint: SURGERY COMPLICATIONS Narrative: patient is a 58-year-old male with past medical history of osteoarthritis, gout, hypertension who presented to the Emergency Room today with a one day history of some right ankle redness. Patient also said he felt a little nauseated and felt as if he was getting a fever. He denies any trauma to the ankle and reports he had surgery on the ankle approximately four weeks ago. Dr. Kyler Caldera was operating physician. He denies having any issues up until this point. He's been compliant with his medications and says that he has been having some pain on the top of his foot. Review of Systems ROS Narrative ROS: a complete review of systems were reviewed with patient and are positive as below or listed in History of Chief Complaint. General: fever, no chills, or night sweats Head: no headache, trauma, visual changes, nausea or vomiting Skin: right ankle erythema Eyes: no blurriness of vision Ears: no reported hearing loss, vertigo, earache, or tinnitus Throat: no sore throat, hoarseness, swelling of neck, or tongue pain Heart: no chest pain Lungs: no shortness of breath or cough GI: no diarrhea , some nausea Urinary: no urinary urgency, frequency or pain Neuro: no numbness or tingling HEM: no bleeding issues or bruising ENDO: no thyroid problems Psych: no anxiety or depression [facility] Medical History (Updated 10/16/23 @ 15:07 by Kyler Caldera DPM) Impingement of right ankle joint ?M25.871 - Other specified joint disorders, right ankle and foot (ICD-10) Osteochondritis dissecans ?M93.20 - Osteochondritis dissecans of unspecified site (ICD-10) Ankle arthritis ?M19.079 - Primary osteoarthritis, unspecified ankle and foot (ICD-10) Migraine ?G43.909 - Migraine, unspecified, not intractable, without status migrainosus (ICD-10) Elevated PSA ?R97.20 - Elevated prostate specific antigen [PSA] (ICD-10) Kidney stones ?N20.0 - Calculus of kidney (ICD-10) High cholesterol ?E78.00 - Pure hypercholesterolemia, unspecified (ICD-10) Hypertension ?I10 - Essential (primary) hypertension (ICD-10) S/P extracorporeal shock wave therapy ?Z98.890 - Other specified postprocedural states (ICD-10) Prostate cancer (08/2023) ?C61 - Malignant neoplasm of prostate (ICD-10) Surgical History S/P surgical manipulation of ankle joint ?Z98.890 - Other specified postprocedural states (ICD-10) Hx of prostate biopsy (~08/16/23) ?Z98.890 - Other specified postprocedural states (ICD-10) History of colonoscopy ?Z98.890 - Other specified postprocedural states (ICD-10) History of foot surgery ?Z98.890 - Other specified postprocedural states (ICD-10) History of ankle surgery ?Z98.890 - Other specified postprocedural states (ICD-10) Family History Other Family history of hypertension Family history of stroke Social History Within the past year, how often did you have a drink containing alcohol: 2-3 times a week Smoking status: Never smoker Non-prescribed substance use: denies use 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 Highest level of school completed/degree received: Professional degree (MD, [employer]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[employer], 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, 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) Do you think of yourself as: straight/heterosexual Gender Identity: male Meds Home Medications and Allergies Home Medications Medication Instructions Recorded Confirmed Type allopurinol 100 mg tablet 100 mg PO DAILY 08/25/23 10/16/23 History lisinopril 20 1 tab PO DAILY 08/25/23 10/16/23 History mg-hydrochlorothiazide 25 mg tablet metoprolol succinate 50 mg 50 mg PO DAILY 08/25/23 10/16/23 History tablet,extended release 24 hr pitavastatin calcium 4 mg tablet 4 mg PO DAILY 08/25/23 10/16/23 History aspirin 81 mg tablet,delayed 81 mg PO BID 30 days #60 tabs 09/10/23 10/16/23 Rx release (Adult Low Dose Aspirin) cholecalciferol (vitamin D3) 125 125 mcg PO DAILY 90 days #90 caps 09/10/23 Rx mcg (5,000 unit) capsule ondansetron 4 mg disintegrating 4 mg PO Q8H PRN nausea and 09/10/23 10/16/23 Rx tablet vomiting 5 days #15 tabs oxycodone-acetaminophen 5 mg-325 1 tab PO Q6H PRN pain 7 days #28 09/10/23 10/16/23 Rx mg tablet (Percocet) tabs Allergies Allergy/AdvReac Type Severity Reaction Status Date / Time cephalexin [From Keflex] Allergy Hives Verified 08/25/23 14:54 Exam Narrative Exam Narrative: General: Patient is alert, and oriented to person, place and time with normal affect, proper hygiene Skin: no visible rashes, or ulcers Head: atraumatic, acephalic Eyes: PERRLA, no nystagmus present, conjunctiva clear, no scleral icterus Heart: Normal rate and rhythm, no murmurs/rubs/gallops Lungs: no audible wheezes, crackles and normal breath sounds all lung yost Abdomen: Normal audible bowel sounds, no distension, No palpable masses, no organomegaly, no rebound/guarding/ or rigidity Musculoskeletal: right ankle compression c/d/I Neuro: CN II-X grossly intact, normal sensation upper and lower extremities Constitutional Vital Signs, click to edit/add: Last Vital Signs Temp 98 F 10/16/23 09:53 Pulse 111 H 10/16/23 07:53 Resp 20 10/16/23 07:53 BP 153/83 H 10/16/23 07:53 Pulse Ox 98 10/16/23 07:53 Results Labs Labs: Short CBC 10/16/23 Range/Units 08:18 WBC 9.6 (4.0-11.0) 10^3/uL Hgb 13.8 L (14.0-18.0) g/dL Hct 42.4 (42.0-54.0) % Plt Count 178 (150-450) 10^3/uL BMP 10/16/23 08:18 Sodium 137 Potassium 3.6 Chloride 100 Carbon Dioxide 29.4 BUN 23.0 H Creatinine 1.23 Glucose 107 H Calcium 8.8 Assessment and Plan Assessment and Plan (1) Cellulitis of right ankle: Onset Date: 10/16/23 Assessment and Plan: normal white blood cell count,elevated ESR and CRP, will check uric acid in the morning, per podiatry recommendations CT scan of the ankle was performed to evaluate possibility of abscess or infection.placed on vancomycin and Zosyn for broad-spectrum control and will decrease once CT scan results are resulted and further plan of care. (2) Arthritis of right ankle: Assessment and Plan: we'll continue Toradol and oxycodone as needed (3) High cholesterol: Assessment and Plan: continue statin (4) Hypertension: Assessment and Plan: continue metoprolol, lisinopril hydrochlorothiazide.. Qualifiers: Hypertension type: primary hypertension Qualified Code(s): I10 - Essential (primary) hypertension Plan patient is a full code Patient will be placed in inpatient status and is expected to stay more than two days Will continue Lovenox for deep vein thrombosis prophylaxis
[2023-10-16 14:13] LABS: Erythrocyte Sedimentation Rate 27 mm/hr (<=20)
[2023-10-16] MEDS: OXYCODONE HCL/ACETAMINOPHEN 5MG/325MG 1 TAB PO (14:29)
[2023-10-16 14:39] LABS: C Reactive Protein 1.57 mg/dL (<=0.50)
--- OUTSIDE RECORDS SUMMARY | 2023-10-16 14:42 | XMS_ITS | CCD ---
Author Name Unknown Address [address] [place] [address] Organization [facility] Care Team Providers Care Telehealth Nurse Educator Name Role Phone DEV CH Unavailable Unavailable [...] Translations: [Keflex] Drug Allergy 09-20-2009 AOF [facility] Repository Problems Active Problems Problem Classification Problem [...] Coding Summaryon 09-16-2023 Coding Summary HTMLBase 64 TdycdvicQPc4sPh+PGhlYWQ+ IF3ZUGIxR49ieBYseS7gL7TT TElOSywgQVBQTElOSyIgbmFt ZB1byEKbNDZn IC8+VB0dDVAyNqkoqDTyl2N4 rZK1C72bmz6bPNemgPP3VTGr TfWzvsycb1mppJa6TYiwRkkd OyBt JZImkD12PSB9mF79Bv61lJYa iLYkx1eijRi2FdCtPEZiDDN9 hQcxJStaq9OyYFGwW02lcMBb c2U6 HENmhXhwaOHpXtLmyFH6hH2e XXbowfika9bgnfptQbd2he13 qIHar5D2jPH9O5XvivL2XTNf bGQg PlbrzXANtM5iyvtko7bieafx ZaGiUPJrUKp8XNo8DASnxMcz EcUkJL31DDW2NXUruiTfF2If LWFs lSzpJxE7w3C4Iw0LP2IORgyf A0CNKZDFCYwsvCM+OA27ik34 S9HkLgkcMvs8UWDwGAU8bNX9 aD0n DBCxQBxcm6Z6zBZ1I1RdldCu tu4dk6gdFLTxEIjcU01yhNBv g2E9SQBtlQT7IUSmkUaoEoBn aG93 Oyc+XKWobPhse7UsJeycl0xc m2hxrJi0GeaqZNDbucHvnJpl ZQT4b0IbFt8xCDMznEM8zSA9 aD0i XtCkOnF6REhvQ814DpVcsNPu NzizV84kP7XibNM+PHRyPjx0 RFCkkSwcJH3vZ2VtUHOhqqft bGVm bJbyPF5yBGRgqziuGNZckN3l ENBzB0i1EpKnWwX6PCblW9Pz STXjzetaBd99dZ5tWnSxRvU9 MGlu O6AwpgG4XIRvjQAuYZqzXCJ2 J44pv8J9MMStEGBaSAU0lAZ7 xJ1coIifenoezISyhRzfvrDr dGlj YWsgBIkuR544FIIlwGoiLmOv ZGluZyBEYXRlOiAgMTIvMjgv MjAyMzwvdGQ+RVNyEPV3fHuy PSAn sWGuMHttMq7frRvlrYfmKT5g ZNMnqjkvINEeoC4xFDFftYYj hBrfVU2eSZLnbzlqc559TrCx MHB0 BGIecWEeE7FjzN6aDlJsUWYz JKSbL9PxpLDiBUzfU795XXgj MzV5STBvkuZbT2NmBLGqnLcq OiB0 i9I1Ic5Jh4JtokteQ8MulDPo RrZnNqksBPe7Z2GaZcdsaLR+ OP45CHSjVD17YBm9KTQ1bUss PSdi PTQtF8JhkB8vZsCoVPVpWIKc Oyc+PHRhYmxlIHdpZHRoPScx WIApYaPexVwoIR7jGm8nOHMu LWNv eZinxZVbUuMib7tsWUJhASyo GE1rlCaoM5RwwVS7UATri6c6 Eq40V81aD4VwmTI+PGNvbCB3 aWR0 zS3gPfZrPfO5JIvpG802MrVg nZAqUaggr0nka5cafJh1UcB0 DQQqymQvdVrbIXI4z8KqVp95 Y29s IHdpZHRoPSIxNSUiIHZhbGln sx9paX3zFz0+ITAgjPQ5kVF8 uX9kBtBnMaQ4PBvmK917XcNv cCIv Dncpc0shc9nkcDe8YxPrIOJs qoUzdUhaMHJ1w0ZtHx14D7Sr nKdqe2ZwJkk0rb10dGRsb9X3 bGU9 Y0OwHPTnwlbsaPPrsEwnXJ7u SQUftbelTFIwhG5vOXAaW2e9 DpRfKsP4PMoyQ0GaxsH2IUDh bGQg MJTajTFJxN0ebzhsu1labgaf LpRqVNAjWEo5WLl7QGEgtIvg VbOuCPS1DaR5HNO0xEIgzY7n bGln ebdtmI4fVko+NWI4uJEqnEOV DI1hBhcdtFF+VZReRVC1oIbz PQcrHZCwqX2cVRCjI6v6IsQp LjA1 UPkpL1QqwmB4DESknDMoFWIy yIFCbW2uynywi5rolnliBjNb PLFcCRd0ZOl5IJNemXdoLwDj ZWZ0 MkZ2NZA2wPCqfM2kiQtvgsoo oI5jLez+YcdzhUmeJKY4IZc6 X7CtTax0LQFijPdrVJ5twSOb ZGlu Tl9nvSgpbWygNC3cCISadrsc z756PyGza0nuIPTxmWBfEGwh CUU3V36pn2L3WDUyGESsFZI6 dGV4 kJ7auFxwzychgEXsoMcetnEi jOliQKmtAKcvW158ILGjtRec ZhBrBPi0C1UyAmg3JJSutJoy ZT0n zRVbUSytXw3ihAxccRryYS0a INUvwyygr761QaByc8kwIVDw sWIaLSqnRAF4W53zm3X8PYGx MDAw NVG0uNM2zW5vaVfawxhfhNVm xVnzleEbnOybVBawORtbW494 WIQouYjvYfRxnUk7T7ZkUyc7 ZCBz iOpvEX3evOIrFIzqMn5ogLry hUwfUF6nFQBzhvxli492KsYa g2hlSEXwbEWpNLbgAHP0C43e b3I6 PQArHLDcZFC2aAD8iT8qfZis bjogbGVmdDsgdmVydGljYWwt EVmxW715UGZmoCfvTzNwbDvj bnQg KOnbUCw3R4IyVlkcrDB+PC90 QIDsSQ48fERueSUps0xkoEg3 ZjOaXZCzNIW6iVfhEQgjh5Xp ZXIt Z44pcNDdd7F2VRTqmLxnzKTc BiGerGL8vM9aBIfoqjjwo8fl rmsaGdcsa8evdu73tX14A95s IHdp NPItONReXXFkOCRgbQhkum1p oE2uQr2+KMYkpQH8kFJ6wI9n WHNnNcK1DEbrG251VoPgmUGe Pjxj u4ami1rugYn0MvZ0XGDytlOe rYerVDM6l2WqOd97Z46rYDrq NTKlTAJrUYWiYOHdeOytcj8j dG9w Ii8+AAIypEU7fWP0dF5tNsWo VdO2SCkaX442CpWalKFqPixt L84yX4OakGJ+FRTnRvn6HEHs dHls MN0hlUYoLBfpYs0tIBE6VcGx JeMdAQxwG7OlMKFosyuxjeba dSG3HQWqKKGwnX72Rr5fdTcs MTBw wVCHmQ8dxgfgs5hbrwlmGcZp WHFnFNk2LWd7NNZjkTsyWuLx IND0TaA4GYT2fFNhiY6wpBfd bjog pW8gU3NrEAQutalpJu98vH6x CpMxLlZ8FBqoNps+RFVSSVZB W6UgUSnCAlkaUAdMUB18Q6Rm Pjx0 NZEtiCzxAX2ibTLcTKapQs0w xVwazQtfIO0qDVMieqpcBRJj kO8rJOUabOAbxPwjBV1rNRJr bjtm w323PhFcOED1QGKgbEPnW7Co uB3uDdSwSJPsRCMdG5AgzXLo CMucK698AYqvIyG5QJVlbfTn Y2Fs GIKhzTerXlW2j2H8Oh8uPE7n Zc0qVHL8VK40LU14nXZra2Z0 sTX0B9VzVFTcdtlrjwhqxLO9 IDAu VHCanA07mUEcYQaqAe5av8J0 f928SHTkSHWojI14Kd6vzAev DLGthLOYxY7zreeyt5yoeowt IzAw OGCxIQf2PVa7RLYcsMpiHfAi THZ9EuX5HAV4dHJsfA2atCvq cmhjkA7iGsv+NTYgWWVhcnM8 L3Rk Gyl6PHShuGifUX7rcOIhXVvw Mv3coNtnyAqqCX5cZGTsgxmz RNOvoF0cQFMssGUnrVgtEC8x NTBp dqjbq574YiUsRNY8PNJszWBk A8PxxO7wYeOkWZGzMWUsC5Ki yNXgGOseV587CKdjUxP4MIZn cnRp A6IwYHYlgFwnDcM7h8N3Sd2D SXuMKQ86HW27hWGdu6M2jKY0 O6EbPWLyyxlkgebreCW1HDAr MDUw sA27fKMrFEjxNk3ep6D0z532 XMBePRDwnK47Bk7zuGqrTEWu tRQKjQ4dxegpm3efairpZxQd MDAw LZs1NZz0UDKwbGatSbNzITZ2 UiS6JRV8zYTqhF4mhBxwxsaj cS4yMyt+R7M1dSG7qTZdkDMr biBh IEJlZDwvdGQ+DP90nr91Y8Yg SecvKfl6CSSeTMD6yKJ4xH8b DDKvCRmug7Y2eCU3N3TlciCe ci1j y7omLOYpETdcS34ulWNyf1G2 DUNgvZL5OKHubYlfFtMyaU51 Oyc+FIMjaTeaf5EaCbewj0ns d2lk jKc9CcGrNVTvtuAyxJfgOXP9 l7HqJb97E66xTLtbKSOoKYEk PFIeYSOypKuwws7xbA5gBe2+ PGNv eED6tYL1sX3jTzNuNgI5IIdu M450PsHaaUIcWmzmm9rzg3sq hZm7SdRdBIQupsOibRgmPIE8 b3Ai Hj21D9ShqLppk4BxMrh7gu99 rNGdx4O9oBB2O0BfJYNkrgsk tDLmwGhvHJ0gPIAumsjxCZCd aW5n UOXsR2o7EfFfLiP5BBkrU5Zh zvW1USJsaVKoYVYcmAGXeG0c yxzcd4estknkUvXsQZErSAg0 ZXh0 MVGgzMdhDrDmAYN6DmD7KFO5 sYMxzN5igPkvksadzI3yDij+ HFg9j2hcaZEdGE0fqRX0QS17 ZD48 uNXcd3Q1fMF9N0DxQMAbrrno gtzyeRJ0JQJqUVWpoI84Cg3t uEokSk7tWWMeUXP6LPPkrGZv O2Nv zJ8uScXnJBSbHXDvS9NquVBe MJmiB393FUsoIhH9XXYpimFe A3JcBMYwbKpmZzU6r6M8Er5Y SU46 DR75HV05gYZac8J9xJP8Y5Qc WVJhksohwrnndJC9BNHtOZGm cR81Fd5mxWdeOc9fOJQuWQH0 IFRp eISnW6AnrQ3jVuXxRRSkEEYn A7IbeZPcLAkgY160BPnqVkQ3 DSVlnqLlC2TpIRNavNplNrS8 b3A7 Kt1OLm21QR86TI43jQKdw0Y0 jRC9O1QzSQXxhaxvxfgngYJ7 VCEwIGVtrY16Gv6ybWvdIa5u ZCAx JOQ6RSGbxRLyK7RblZ6tLkNc DPGkVTQnX3KbxQOgKHonX071 GMbpYhF0ISJavkCiS5WdRSUi aWdu EcC2y2B4Oe1RESqlquo0I0Ha PjwvdHI+WD30PQTrBR49xHTr eKFfe5otpHc5ZiHrXZSrZYY0 eWxl PSd (more content not included)... [facility] Coding Summaryon 09-15-2023 Coding Summary HTMLBase 64 KsyjzpnqWFp9jTv+PGhlYWQ+ QW0TMPEaX16xlGXcaG9yG9QE TElOSywgQVBQTElOSyIgbmFt SD0jnWQeHVBr IC8+VV4lAVMyKxkziOHog8P5 cYL7P33xyy1qKQpciFQ5MIJw KnVtxotwj2vivHh9SRgfPsse OyBt FEBgtZ43GNS1vC32Fk20aXOy mLKxy7hkjUj7CmHuIQSeWBZ2 xKjfQYayo3ZhYMXlO88mjPJj c2U6 TJCmoMvnxOJcZqNhkRQ9eI3k CDrzinddl5vbnxrjKia1cm18 cMCzi4U2rVS9J4BtuoX6GFRs bGQg BupkhHINpE9vzehmn1tiaeso MnFnDUEmEHk9YBr4RIPejVch YpKkFK87NJH3MVXjytIjZ6Ru LWFs hHrtNaM3z0Q8An8OA6AUSymv R7NTYXJTDHsxoUU+RZ31jk79 F0MwManqTvj5ESXdEFP2nGR8 aD0n OFQqGXqtj7C2jVL9F4QtikNc yv8bq0svPHOeCRxtA76dgOGq t8H6EEVgwPD7WJBcvVhfFjTb aG93 Oyc+OFWxlVeyk6XsKvqkr2uh x5siaFh4BrvpECUotbVwwVuq PST1j6EjBd2fTKXlyQA2yNB7 aD0i ClLlVoG0OQweQ652PbKewSDa WiibH88aT5BfkVZ+PHRyPjx0 AAFvsJsoJD7vB9EtZZEdbzsw bGVm hXnfJS5qEQYfvgcdESLhgJ6q QZFiW5r6AbOyVhZ7FLnvU9Dc VWBsbpfvYu53nG1oVkEcDlD5 MGlu D7MwqxA8BHFxvRAtXGomGRK4 R10xj0L9HOBySDEnIRB1vDU5 tF7acEwktzkgvPCbkIvngjJx dGlj GQngVWmqL019WSUrmNinAuCi ZGluZyBEYXRlOiAgMTIvMjcv MjAyMzwvdGQ+POCcABA7aGof PSAn dAZzQHxlMc5izUmtpGyfQD0s TSJnvxduVGIhgF7aULCstZPj dGsoOJ1uRFKuremsm190RqZn MHB0 PYHxeTHoL2IjyT7lUyKtZLCv YSYqW2BciTKiCFesV514UZur UrR9CMKcttPiY8LwWYGreGiv OiB0 w2A5By3Pj5VrwqnhH7CcpXQh KgSvQijzDWe4B8SgMgfctOC+ IE61JVGsSI06LUl2LBY6bSye PSdi QHEqQ5RhqM6nDlPuGCZjXBTx Oyc+PHRhYmxlIHdpZHRoPScx UKIcIkSnxPagDB6uAo5aIFUy LWNv qDumeSGqCcOrn4faJRShBEvn MM4cfWsjL0VbzZQ3WEFww1n3 Ek10F56yQ8IvkDE+PGNvbCB3 aWR0 hO0yQuHgZbL3YVucL538FxHg nQZrDsytp9yyw7mjuBg8LgT9 NJWiatRmuCypFPP4a0InSg69 Y29s IHdpZHRoPSIxNSUiIHZhbGln zu9izL9pJq6+PVCxdHY6iDV2 tV0nLfLqXmN9CNgbG377VwYv cCIv Bxjpq2ufy2lzkSl2XnOsVUKu kiWgtTnyUNB9c9CzKq83U9Wv nSjft0LzOmo9ep14hISua6M7 bGU9 O7DgNTWqgryazKQdeXeaCU7a DBHwdkwnUMJhmY4dEOPhW8h8 PdZoToS3DAnfF1SxndM0HLTa bGQg SZVlgZZCrJ2ixrdwq3ocaqxk OpKlTVJbJWx0NNz0DIKgtNee QhDmHHL2LcP8YZG8sXNlyN1p bGln tluafU0cCie+BBM8aSAwoNHA ML3gGfqgfSY+KSMxVAX4rGen LSjfZIFxzF2sQQTlN0p5PrOa LjA1 LQwrJ0ThnpH9SUOgyWOtQTXd cXXXiJ9hellpn1xmbnyxHbPv LDCdSAz6HTp0BYVyiErjYnHx ZWZ0 ZfO6RBD4rCOcqZ6kxBxsoaws eI8sTul+CwmhlLswKJH7YEy3 S2NuZzg7VXKwlYyvQY1cjCPq ZGlu Fd5trFdvcEdzDI2vOQFsrbdi i274CxWvd2yzRJYmhXOeFSwr WXT8N96fh0B6KACaGLPwHNL5 dGV4 fA2biGxdfrdbmSPokQjdbmBp fGoyMEujUFlpQ185TPFhvJnv VxYuDPf8L8DbUiz2ZYIwvQyx ZT0n hNGkFLbfCf1kwMivbLkaVU4m KDDpmhifl813KwDqu5ftLCLn tIZdEFcgXZH5D41kw8L3XOMp MDAw UJM9nDN1qO6puCnbscoxlKOm uZgjueZhxFxaUZceVMrkV246 MRPwmHdgGqPvtIx6T6GpPyd8 ZCBz zWyuCM6okIJtYCbvNq4vcSqf dMgdGP9uKQKfubpxo532PgRu u7skMDLlcILoPQuuPUA9E95p b3I6 GIQtCPDzFSB9eRH9hX2hcVli bjogbGVmdDsgdmVydGljYWwt TObvQ139JGBdbKsvJtSyqDjn bnQg KDzkSFo4V5HfMefhoJS+PC90 FGEqGC20dUPsyHGoa3mooVf1 PuPrPXExGJF5xZwdQMolr6Ig ZXIt S59xjDSrc4M2UEUgwMilrFOr KaXhlZD2dP9iRXwkfkbob2oy fbenLrtpp8mxao06tB13F23i IHdp FZEzJSEgYJVdEXRaiOspbs3m qK0xFn8+XQRwgIU3cTS1qB5j ILTySaY3PWkkX031LzRdqCYf Pjxj g7vln9lavZu7BgU4QJOqzlEu wDxcKPX5x5AzZd23S03rYYan PSQhZCUcUJCxMEZnuWbqso6c dG9w Ii8+LJQvnYS5lZK2yY4hVmQi HrW3DOlhW480IxIvoNOsIpqe E56sM2CvwBU+VYGnFcf9XGDl dHls MO6svELyHZirTl1zRKS1VlPw OcWjZRarX3XfPEYsmqdnxemo aLY7COBoHWWmaW75Zc0zkLvj MTBw mYNUwG4fzauft4enihvjYwWq PWGcOKm3XIf3WIIxnHqxDeIl XXY3SrM6UWG4mDIwqZ7nwWaa bjog hH4wO5UuAUYizzfnFv97vB2u WgOjAhW3XQgsVtd+RFVSSVZB L2AtBYrQMvyjNSiLCK36M6Be Pjx0 DDTxlZxxKF0fxEUhDXyfQg7z jDtopFucED7vIPKituafOAIx gD2sWWAizJZppVbjEK5nYACl bjtm u126AdLnQQM3FOUpdCPlW0Dr rB6hEfIfITQuJBBkB2UndDWu PYocV353QVqyHsR6XXHopuZz Y2Fs DRCurXbzVaC2g7C2Dl3sPO2l Pt1mTBY3ZI78SJ27zIXdz9C0 yLG1K5OaWRUkjweoberkcIL9 IDAu EQKxgG60vGJnQMzwIa0ud6M8 i250BWUcZTFmgT09An0gxCsv XRSnmXJYnL3wkqbey0pxwbut IzAw NECuAPx9SPe8IBAppExwXiJi PZV6NgQ2FYK0rTMwtS6kqTfr bfullV9fFqp+NTYgWWVhcnM8 L3Rk Vie7DBEhmDqsKV4dmSBfTHuh Se9egMchhIetFR0rYSMjzoho KXXedS3gVSRdaZTlyGkbXA8a NTBp jkycc898OhUpFQM8TXUbaSQc R0GanV6dOhYnMXGbBGDwH7Cz aIPlGHjmB710GCooJxJ1IZBb cnRp I9KxBEKorByhKfS3p1F5Rt0Q HPgFJG68AZ52cACzj2N8aNC5 X4TxKAUgsbkxyqqbdAM8FNLj MDUw tL58jSAiEBiiMc4si6U1z945 ZMJlGDPnoJ90Bu7xjLxqDTLw sVINhG4nweftx9zsgbtwDiLa MDAw QVz7PHn2HNMqlPyqTjTzDAZ3 NzH3AIY1vELloC0svVwokioh wZ3pQwt+F2R1X3CfFaatvTN+ PC90 PLYwAI47tDJdbUBhf4vkmYk6 GnIwRNLtLNN7eDrxRLsur5Uk QHPlG92raOIiv2L1OGFquUwm cHNl JqPehXN2fX9hAPweyuvdx9uh ltbpLvzwv8xwqy48eS74P48s IHdpZHRoPSIzMCUiIHZhbGln bj0i fL3hVr3+QMJuxQK0zOS7eU6s WwVcZeJ5KUedV094UdUyiWKl Dxuye3hgz3qceLe8GyFfZYTg dmFs nLltTXB7j0DbBx58C15qCPoz SLPkXTKcPJRsJBSioYrsrx4f lO6wBb6+HP9as1yyha86wM11 dHI+ XQGnXXX5jZohCZxeWCFyoC1b PAzeSaM0ZOJrMhBdnE99vJYi EPtsRq9feVesbKefDD6rLJYk bjtm m732YiCgi9txSWSruDTqWFfj FJV6Y24tf5Q1SVPmRCOhECC0 kBW9oB9adFuyovahxEUjePow dmVy nWqoIPteWNybZ045POZskDxh ClUrbQIrF4ymttPYPT3hNqbm dGQ+BQUdCEA3fNgvYCpeMGKr aW5n IALaG4c8FwDlKpJ3NSscE6Gq jjB7OCKfbTUpRLBdkTEXlO5h szzyu3bcvwanPsCaMJLlQMg2 ZXh0 MWJvuAsmGwRdXQR0VnV3LHZ3 kTVvgZ1hnMzncbzauT4jCub+ RklOOjwvdGQ+QGNiQLS1cQxk PSdw SECheO9dBLPmD3u5FiDkIbQ9 OSpeT1BnimJ4ZHFooNNqWUQy cYRNbE0miewve4wfolsvYeSh MDAw YHi2DJr5DXOaaEoxOrYzYGJ7 AvO9HZF5bFIrnC8veUpvxwsz kC6iXau+TVJOOjwvdGQ+PHRk IHN0 tMveNAklRZQkeK6aRGYqR6t8 QqBsFdT3CKtdW9CaxxI5AIEb rRVoXSColZTUiP1nmjiam5wt cjog LwYcQERmZTi2UPs1BLUbjNta GcEtUCE9JyO0RAS3wDZlvM7l nUztatqamV7lMkr+FRY1QKF7 PC90 AC31Y2UkCjhwsDEwgLK+PHRh YmxlIHdpZHRoPScxMDAlJyBz oJqtOM1oDb2hDPWaHRDcrDgg cHNl OiB (more content not included)... [facility] Consent Formson 09-06-2023 Consent Forms [id number]#1.00OTG TIFF [facility] Stress Teston 09-06-2023 Stress Test [id number]#1.00OTG TIFF [facility] CV Stress ECGon 09-03-2023 CV Stress [...] reported separately. Jaskaran Tejeda MD JOB #: [id number] ul Final Dictated by: Jaskaran Tejeda MD Dictated DT/TM: 09/03/23 10:07 Signed (Electronic Signature): Jaskaran Tejeda MD 09/21/23 8:26 am Technologist: ADE [facility] NM Myocardial Spect Multi Re st/Stresson [...] MD, V. 09/03/23 11:43 a Technologist: TARAN [facility] Provider Orderson 09-03-2023 Provider Orders [id number]#1.00OT [facility] Provider Orderson 09-02-2023 Provider Orders [id number]#1.00OTGT IFF [facility] Provider Orders [id number]#1.00OT [facility] Consent Formson 08-24-2023 Consent Forms [id number]#1.00OTGT [facility] Surgical Pathology Reporton 08-16-2023 Surgical Pathology Report (NOTE) [id number] [facility] ANATOMIC PATHOLOGY [address] [place] [address]. [place], [place] [address] SURGICAL PATHOLOGY CONSULTATION Patient Name: GURVINDER CHAUDHRY MR#: [id number] Specimen #[id number] Procedures/Addenda MOLECULAR PATHOLOGY REPORT Date Ordered: 09/16/2023 Status: Signed Out Date Complete: 09/16/2023 By: Obie Marie M.D. Date Reported: 09/16/2023 INTERPRETATION AT THE REQUEST OF DR. 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 THE RESULTS ARE FOLLOWS: GENOMIC RISK IS: LOW RISK OF METASTASIS WITH RT OR RP: 7 YEAR: 0.5% 12 YEAR: 1.1% RISK OF PROSTATE CANCER MORTALITY WITH RT OR RP: 17 YEAR: 1.2% RISK OF ADVERSE PATHOLOGY AT RP: 18.3% PLEASE SEE [facility]' COMPLETE REPORT ([id number]) FOR DETAILS. Case report, all slides and [...] second Pathologist who concurs with the diagnosis ([facility]). Riccardo Hutson Electronically Signed Out 08/19/2023 [...] negative for racemase. Controls are adequate. Normal [facility] CMP Standardon 07-15-2023 eGFR Non AA >60 Invalid Interpretation Code [facility] Comment on above: Performed By: #### 1 [id number], [id number], [id number], [id number], 4332877, 9573311, 0281921 #### [facility] (DEFAULT) [address] [place] [address] eGFR AA >60 Invalid Interpretation Code [facility] Comment on above: Performed By: #### 1 [id number], 8015982, 1380444051, 9031268, 7438377, 9082297, 9797848, 6407066 #### [facility] (DEFAULT) [address] [place] [address] Albumin [Mass/Vol] 4.5 g/dL Normal 3.5-5.0 [facility] Comment on above: Performed By: #### 1 [id number], 5335706, 9686738584, 9487400, 3617658, 1910054, 1263588, 9783400 #### [facility] (DEFAULT) [address] [place] [address] Alk Phos 44 IU/L Normal 32-91 [facility] Comment on above: Performed By: #### 1 [id number], 7003523, 1099902967, 9946923, 6021319, 1284315, 8313485, 7803736 #### [facility] (DEFAULT) [address] [place] [address] ALT [Catalytic activity/Vol] 35.0 U/L Normal 17.0-63.0 [facility] Comment on above: Performed By: #### 1 [id number], 8991910, 4383906554, 7548422, 9860893, 4736818, 5360197, 6483666 #### [facility] (DEFAULT) [address] [place] [address] AST [Catalytic activity/Vol] 35 U/L Normal 15-41 [facility] Comment on above: Performed By: #### 1 [id number], 3673926, 6460231879, 3940714, 7557582, 0944913, 6699677, 1013397 #### [facility] (DEFAULT) [address] [place] [address] Bili Total 0.7 mg/dL Normal 0.3-1.2 [facility] Comment on above: Performed By: #### 1 [id number], 7445124, 0144880640, 8199623, 4993560, 7034285, 0009324, 8300583 #### [facility] (DEFAULT) [address] [place] [address] Calcium [Mass/Vol] 9.4 mg/dL Normal 8.9-10.3 [facility] Comment on above: Performed By: #### 1 [id number], 8940971, 2926302816, 7164918, 6028034, 1969863, 9594870, 9814391 #### [facility] (DEFAULT) [address] [place] [address] Chloride [Moles/Vol] 102 mmol/L Normal 101-111 [facility] Comment on above: Performed By: #### 1 243006655, 3281549, 8936066667, 0161899, 1229498, 0242901, 8894201, 4195017 #### [facility] (DEFAULT) [address] [place] [address]215 CO2 [Moles/Vol] 30 mmol/L Normal 21-32 [facility] Comment on above: Performed By: #### 1 421675876, 9962604, 6161925037, 9526875, 2113186, 3652371, 3935595, 4446061 #### [facility] (DEFAULT) [address] [place] [address] Creatinine [Mass/Vol] 1.15 mg/dL Normal 0.90-1.30 [facility] Comment on above: Performed By: #### 1 147723555, 9314058, 8610956485, 7906665, 1608866, 5363073, 3170019, 5297085 #### [facility] (DEFAULT) [address] [place] [address] Glucose [Mass/Vol] 88.0 mg/dL Normal 74.0-118.0 [facility] Comment on above: Performed By: #### 1 707600185, 2454141, 7584993718, 3233915, 4302784, 1786465, 4140551, 7777358 #### [facility] (DEFAULT) [address] [place] [address] Potassium [Moles/Vol] 4.1 mmol/L Normal 3.6-5.1 [facility] Comment on above: Performed By: #### 1 827056700, 7899056, 6949109427, 6924569, 0836279, 7150487, 9607497, 3509223 #### [facility] (DEFAULT) [address] [place] [address] 21645 Protein [Mass/Vol] 7.1 g/dL Normal 6.5-8.1 [facility] Comment on above: Performed By: #### 1 354080255, 7207285, 5282363865, 6731412, 8236877, 3217978, 1460839, 3948932 #### [facility] (DEFAULT) [address] [place] [address] Sodium [Moles/Vol] 140.0 mmol/L Normal 136.0-144.0 [facility] Comment on above: Performed By: #### 1 684855256, 4977116, 3661640335, 4862415, 9757193, 8046888, 6635147, 7694998 #### [facility] (DEFAULT) [address] [place] [address]4728 Urea nitrogen [Mass/Vol] 25 mg/dL Normal 8-26 [facility] Comment on above: Performed By: #### 1 009336561, 4956513, 0751949775, 1120522, 4279451, 0662451, 1648591, 8108747 #### [facility] (DEFAULT) [address] [place] [address] Albumin/Globulin [Mass ratio] 1.7 {ratio} Normal 1.4-2.6 [facility] Comment on above: Performed By: #### 1 771848067, 7487753, 0190172079, 8085282, 7184343, 1408286, 7466400, 8808283 #### [facility] (DEFAULT) [address] [place] [address] Anion gap [Moles/Vol] 12.1 mmol/L Normal 5.0-19.0 [facility] Comment on above: Performed By: #### 1 057736835, 5185047, 2936891981, 1103189, 4509782, 7951747, 0632836, 7072587 #### [facility] (DEFAULT) [address] [place] [address] Globulin (S) [Mass/Vol] 2.6 g/dL Normal 1.5-4.3 [facility] Comment on above: Performed By: #### 1 504099776, 2913658, 1920028195, 4149938, 3194287, 0417248, 5153203, 4445769 #### [facility] (DEFAULT) [address] [place] [address] Osmolality 283 mOsm/L Invalid Interpretation Code [facility] Comment on above: Performed By: #### 1 198988069, 3235645, 1969083602, 7533604, 8119668, 6519058, 6223786, 2249268 #### [facility] (DEFAULT) [address] [place] [address]287 Urea nitrogen/Creatini ne [Mass ratio] 21.7 mg/mg High 4.6-16.2 [facility] Comment on above: Performed By: #### 1 949560445, 0028321, 6508890524, 8116054, 6047772, 2499162, 0620992, 7934200 #### [facility] (DEFAULT) [address] [place] [address] GGTon 07-15-2023 Gamma glutamyl transferase [Catalytic activity/Vol] 22.0 U/L Normal 7.0-50.0 [facility] Comment on above: Performed By: #### 1 106790427, 1066733, 2454001116, 7437659, 9354056, 5297966, 2314607, 9140483 #### [facility] (DEFAULT) [address] [place] [address] Iron Levelon 07-15-2023 Iron [Mass/Vol] 114.0 ug/dL Normal 45.0-182.0 [facility] Comment on above: Performed By: #### 1 798579809, 6719207, 2385984902, 4702155, 3853447, 3269103, 4509207, 0760423 #### [facility] (DEFAULT) [address] [place] [address] LDHon 07-15-2023 LDH 257.0 IU/L High 98.0-192.0 [facility] Comment on above: Performed By: #### 1 257765250, 1746614, 1172250924, 4045424, 5479532, 5525855, 8386268, 4194488 #### [facility] (DEFAULT) [address] [place] [address] 92902 Lipid Panel Standardon 07-15 Cholesterol [Mass/Vol] 188.0 mg/dL Normal 66.0-200.0 [facility] Comment on above: Performed By: #### 1 768254889, 3677932, 4221844473, 5739948, 2929684, 4080614, 8635065, 8220864 #### [facility] (DEFAULT) [address] [place] [address]37 Cholesterol in HDL [Mass/Vol] 45 mg/dL Normal 40-71 [facility] Comment on above: Performed By: #### 1 980590739, 9120704, 5224584373, 0812992, 5380183, 7572076, 9960478, 1018639 #### [facility] (DEFAULT) [address] [place] [address]012 Triglyceride [Mass/Vol] 130.0 mg/dL Normal 0.0-150.0 [facility] Comment on above: Performed By: #### 1 487757478, 1760208, 8112863626, 8933327, 0301070, 7595580, 5535350, 8888409 #### [facility] (DEFAULT) [address] [place] [address]51 Cholesterol in LDL [Mass/Vol] 117 mg/dL High 1-100 [facility] Comment on above: Performed By: #### 1 095702686, 1499236, 2531349707, 8925730, 7199035, 8192021, 7123775, 4063058 #### [facility] (DEFAULT) [address] [place] [address] Cholesterol.total /Cholesterol in HDL [Mass ratio] 4.1 {ratio} Normal 0.0-4.5 [facility] Comment on above: Performed By: #### 1 600500911, 9810242, 5860957188, 3468484, 8476349, 2762318, 9748193, 7528938 #### [facility] (DEFAULT) [address] [place] [address] VLDL. 26 mg/dL Normal 5-40 [facility] Comment on above: Performed By: #### 1 150381489, 9117485, 7549041922, 7084386, 9191106, 2781720, 4080335, 5176485 #### [facility] (DEFAULT) [address] [place] [address] PSA Screenon 07-15-2023 PSA Screen 5.97 ng/mL High 0.00-4.00 [facility] Comment on above: Result Comment: [employer] Clinical System (Chemiluminescence) Values obtained with different assay methods or kits cannot be used interchangeably. Results cannot be interpreted as absolute evidence of the presence or absence of malignant disease. Performed By: #### 1 [id number], 8864931, 5609916555, 5754753, 7048446, 4100825, 5164166, 9362948 #### [facility] (DEFAULT) [address] [place] [address] Phoson 07-15-2023 Phosphate [Mass/Vol] 3.2 mg/dL Normal 2.5-4.6 [facility] Comment on above: Performed By: #### 1 031771813, 3289858, 8214870906, 1675411, 2585799, 6034479, 2592940, 9889730 #### [facility] (DEFAULT) [address] [place] [address]18 Uric Acidon 07-15-2023 Urate [Mass/Vol] 6.0 mg/dL Normal 4.8-8.7 [facility] Comment on above: Performed By: #### 1 165707866, 8357962, 1737562252, 4332843, 5009628, 2300489, 8431032, 5953321 #### [facility] (DEFAULT) [address] [place] [address]99 Encounters Encounter Date Encounter Type Care Provider Facility Start: 09-03-2023 End: 09-08-2023 ambulatory Dev Ch Facility:[facility] Start: 09-02-2023 End: 09-03-2023 ambulatory Eli Santos Facility:[facility] Start: 08-16-2023 End: 08-16-2023 ambulatory MISSAEL TEJADA [facility] Start: 07-20-2023 End: 07-21-2023 ambulatory Dev Ch Facility:[facility] Start: 12-01-2022 ambulatory JAIR CARPENTER Facilit y:H1 Start: 07-16-2022 ambulatory ROS CM Faci lity:H1 Start: 01-28-2022 ambulatory ROS JOHNSONCOLTON Faci lity:H1 Start: 08-28-2017 End: 08-28-2017 Emergency department patient visit DEV CH [facility] Start: 03-02-2017 End: 03-03-2017 Ambulatory DEFAULT PHYSICIAN Facility:[facility] Payers Date Payer Category Payer Unknown [id number] 1965 Unknown [id number] 2.16.84 [id number] 1965 Unknown [id number] 2.16.84 [id number] 1965 Unknown [id number] 2.16.84 [id number] 1965 Unknown [id number] 2.16.8 [id number] 1967 Unknown [id number] 2.16.8 [id number] 1967 Unknown [id number] 2.16.8 [id number] 1959 Unknown [id number] Unknown Summary Purpose Family History No Family [...] section and content) DATE CREATED AUTHOR 03/15/2018 [facility] DATE CREATED AUTHOR AUTHOR'S ORGANIZ ATION 03/16/2018 [facility] DATE CREATED AUTHOR AUTHOR'S ORGANIZ ATION 11/28/2022 [facility] DATE CREATED AUTHOR AUTHOR'S ORGANIZ ATION 09/17/2023 [facility] DATE CREATED AUTHOR AUTHOR'S ORGANIZ ATION 09/21/2023 [facility] FOR RECORDS PERTAINING TO PATIENTS WHO [...] BE BASED ON THE PRIMARY CLINICAL RECORDS. [facility]. provides no warranty or guarantee of the accuracy or completeness of information in this document.
--- NOTE | 2023-10-16 14:48 | PM.CN ---
Consult Note: HPI Data of Consult Patient: known to practice within the last 3 years Consult date: 10/16/23 Requesting Physician: Sadaf Yost DO Primary Care Provider: DOROTHY PERLA Consult Narrative Reason for consult: Right ankle pain Narrative: patient is a 58-year-old male who underwent right total talus replacement with 3-D printed device on 09/10/23 (36 days post op) for recurrent osteochondral defect with cystic formation. His postoperative course until today has been unremarkable. he relates yesterday he was feeling very well and his related that he had minimal swelling and was ambulating in the cam boot without much difficulty. The did relate that they applied lotion to the incision due to dry skin and went out last night to socialize at a local restaurant. after two hours at the restaurant where they like to square dance patient related to his that his ankle was getting sore so they went home and patient applied ice and went to sleep. Proximally 3 AM this morning patient woke with increased pain which did not respond to two Percocet 5/325. At 6:50 AM he texted me that he was going to the ER. was in the emergency department he was hypertensive and tachycardic with temperature of 100.4F. No leukocytosis but left shift noted and ESR of 27 & CRP of 1.57. x-rays of his ankle demonstrated increased swelling over the anterior ankle and a stable total talus implant. after discussing these findings with Dr. Medrano, we agreed to have him admitted for IV antibiotics and further workup. At bedside patient relates that his pain has improved noting Toradol helped much more than Dilaudid. He denies signs or symptoms of infection prior to this morning and relates he never had a surgical site infection with any of his other previous ankle surgeries. He does have an appetite and was getting ready to eat lunch. cc:: CC: Sadaf Yost DO Review of Systems ROS Narrative currently afebrile but temperature of 100.4 upon presentation to the emergency department. He denies shortness of breath, chest pain, calf or thigh pain. He denies nausea and vomiting. He admits to redness swelling and pain localized to his right anterior ankle. Status of ROS 10 or more systems reviewed and unremarkable except as noted in history and below [facility] Medical History (Updated 10/16/23 @ 15:07 by Kyler Caldera DPM) Impingement of right ankle joint ?M25.871 - Other specified joint disorders, right ankle and foot (ICD-10) Osteochondritis dissecans ?M93.20 - Osteochondritis dissecans of unspecified site (ICD-10) Ankle arthritis ?M19.079 - Primary osteoarthritis, unspecified ankle and foot (ICD-10) Migraine ?G43.909 - Migraine, unspecified, not intractable, without status migrainosus (ICD-10) Elevated PSA ?R97.20 - Elevated prostate specific antigen [PSA] (ICD-10) Kidney stones ?N20.0 - Calculus of kidney (ICD-10) High cholesterol ?E78.00 - Pure hypercholesterolemia, unspecified (ICD-10) Hypertension ?I10 - Essential (primary) hypertension (ICD-10) S/P extracorporeal shock wave therapy ?Z98.890 - Other specified postprocedural states (ICD-10) Prostate cancer (08/2023) ?C61 - Malignant neoplasm of prostate (ICD-10) Surgical History (Updated 09/15/23 @ 00:00 by ) S/P surgical manipulation of ankle joint ?Z98.890 - Other specified postprocedural states (ICD-10) Hx of prostate biopsy (~08/16/23) ?Z98.890 - Other specified postprocedural states (ICD-10) History of colonoscopy ?Z98.890 - Other specified postprocedural states (ICD-10) History of foot surgery ?Z98.890 - Other specified postprocedural states (ICD-10) History of ankle surgery ?Z98.890 - Other specified postprocedural states (ICD-10) Family History (Updated 08/25/23 @ 15:03 by Tania Kinney NP) Other Family history of hypertension Family history of stroke Social History (Updated 08/25/23 @ 14:58 by Tania Kinney NP) Within the past year, how often did you have a drink containing alcohol: 2-3 times a week Smoking status: Never smoker Non-prescribed substance use: denies use Previous occupational history: [employer] Highest level of school completed/degree received: high school graduate Do you think of yourself as: straight/heterosexual Gender Identity: male Meds Home Medications and Allergies Home Medications Medication Instructions Recorded Confirmed Type allopurinol 100 mg tablet 100 mg PO DAILY 08/25/23 10/16/23 History aspirin 81 mg tablet,delayed 81 mg PO DAILY 08/25/23 10/16/23 History release (Adult Aspirin Regimen) cholecalciferol (vitamin D3) 25 1,000 unit PO DAILY 08/25/23 10/16/23 History mcg (1,000 unit) capsule lisinopril 20 1 tab PO DAILY 08/25/23 10/16/23 History mg-hydrochlorothiazide 25 mg tablet metoprolol succinate 50 mg 50 mg PO DAILY 08/25/23 10/16/23 History tablet,extended release 24 hr pitavastatin calcium 4 mg tablet 4 mg PO DAILY 08/25/23 10/16/23 History aspirin 81 mg tablet,delayed 81 mg PO BID 30 days #60 tabs 09/10/23 10/16/23 Rx release (Adult Low Dose Aspirin) cholecalciferol (vitamin D3) 125 125 mcg PO DAILY 90 days #90 caps 09/10/23 10/16/23 Rx mcg (5,000 unit) capsule docusate sodium 100 mg capsule 100 mg PO BID PRN constipation 7 09/10/23 10/16/23 Rx (Colace) days #14 caps ondansetron 4 mg disintegrating 4 mg PO Q8H PRN nausea and 09/10/23 Rx tablet vomiting 5 days #15 tabs oxycodone-acetaminophen 5 mg-325 1 tab PO Q6H PRN pain 7 days #28 09/10/23 10/16/23 Rx mg tablet (Percocet) tabs oxycodone-acetaminophen 5 mg-325 1 tab PO Q6H PRN pain 7 days #28 09/24/23 Rx mg tablet (Percocet) tabs Allergies Allergy/AdvReac Type Severity Reaction Status Date / Time cephalexin [From Keflex] Allergy Hives Verified 08/25/23 14:54 Exam Narrative Exam Narrative: skin: Incision remains intact with a 0.2 cm cenntral area of dry skin/scab. Upon removal of this skin there is a partial-thickness/superficial wound with a small amount of bleeding. No pus. No fluctuance Vascular: Pedal pulses are palpable and digital hair growth is intact. No calf pain on squeeze. Swelling and erythema noted to the anterior ankle and dorsal foot Neuro: Light touch sensation is intact to all areas the foot but diminished over his incision MSK: patient is able to wiggle his toes without pain and range of motion of the ankle does not elicit pain out of proportion. There is tenderness upon palpation to the anterior ankle and patient is reluctant to actively dorsiflex and plantarflex. Stability testing was deferred Constitutional Vital Signs, click to edit/add: Last Vital Signs Temp 98 F 10/16/23 09:53 Pulse 111 H 10/16/23 07:53 Resp 20 10/16/23 07:53 BP 153/83 H 10/16/23 07:53 Pulse Ox 98 10/16/23 07:53 Results Labs Labs: Short CBC 10/16/23 Range/Units 08:18 WBC 9.6 (4.0-11.0) 10^3/uL Hgb 13.8 L (14.0-18.0) g/dL Hct 42.4 (42.0-54.0) % Plt Count 178 (150-450) 10^3/uL BMP 10/16/23 08:18 Sodium 137 Potassium 3.6 Chloride 100 Carbon Dioxide 29.4 BUN 23.0 H Creatinine 1.23 Glucose 107 H Calcium 8.8 Additional Findings Additional findings: ankle x-ray shows a stable total talus implant without change in alignment. Postsurgical changes to the distal fibula with old avulsion fractures from the medial malleolus. Increased soft tissue swelling noted over the anterior ankle and I agree with the radiologist of dictation of this change compared to prior x-rays and that it may indicate increased edema versus cellulitis Assessment and Plan Assessment and Plan (1) Cellulitis of right ankle: Onset Date: 10/16/23 Assessment and Plan: I confirmed with Dr. Yost in regards to admission and IV antibiotics consisting of vancomycin and Zosyn (2) Arthritis of right ankle: Assessment and Plan: s/p total talus replacement with patient specific 3D printed device on 09/10/23 Plan Patient seen and evaluated at bedside I removed a small scab in the central aspect of his incision with forceps/scissors which showed only partial thickness involvement and no underlying purulence Ordered CT with contrast to rule out deep site infection - clinically his issue is consistent with cellulitis however given recent total joint replacement I believe advanced imaging in preferable to rule out deep abscess. MRI not preferable given metallic joint implant which could lead to false negative finding so CT w/wo contrast best choice Tubigrip compression sleeve placed patient may weight-bear as tolerated although given the significance of his pain I recommended that he take it easy today and largely remain in bed or chair Will reevaluate in the morning
--- NOTE | 2023-10-16 15:15 | CT_ITS ---
The [address] [address] Patient Name: GURVINDER CHAUDHRY MRN: [id number] date: 1965 Sex: M Assigned Patient Location: [place] Current Patient Location: [place] Accession/Order Number: [id number] Exam Date: 10/16/2023 17:00 Report Date: 10/16/2023 23:33 At the request of: ROS CM Procedure: CT ankle RT wo/w con EXAM: CT ankle RT wo/w con HISTORY: The patient is a 58-year-old male with Right ankle cellulitis r/o abscess COMPARISON: Radiographs from 8:27 AM. TECHNIQUE: CT images were obtained through the right ankle pre and post intravenous contrast and reformatted in 2 dimensions. Dose reduction techniques were achieved by using automated exposure control and/or adjustment of mA and/or kV according to patient size and/or use of iterative reconstruction technique. FINDINGS: The accompanying radiographs demonstrate a metallic prosthetic talus. This causes significant beam hardening streak artifacts on this CT scan, particularly on the soft tissue images. The postcontrast images demonstrate a nonenhancing fluid collection surrounding the anterior tibial tendon, measuring 2.8 cm in width on axial image 63 of series 10. This extends over a length of at least 4.8 cm on sagittal image 53 of series 21. The distal extent of this nonenhancing fluid collection is obscured by the streak artifacts. The appearance is that of tenosynovitis of the anterior tibial tendon sheath. I cannot determine from this CT scan if this represents a sterile or septic fluid collection. This should be amenable to percutaneous aspiration for diagnostic purposes, perhaps with ultrasonic guidance. No other abnormal fluid collections or abscess pockets are seen. The bone images demonstrate no evidence of bone destruction, periosteal reaction, or soft tissue gas to suggest osteomyelitis. No fractures or dislocations are seen. CT/CT ankle RT wo/w con IMPRESSION: Tenosynovitis of the anterior tibial tendon sheath. Electronically authenticated by: MARIO PÉREZ Date: 10/16/2023 23:33
[2023-10-16] MEDS: PIPERACILLIN SODIUM/TAZOBACTAM 3.375 GM in 0.9 % SODIUM CHLORIDE 50 ML IV ×2 (15:31→23:31)
[2023-10-16] MEDS: 0.9 % SODIUM CHLORIDE 250 ML IV.SOLN 10 ML IV (15:32)
[2023-10-16] MEDS: ONDANSETRON 4 MG RAPDIS TABLET PO (15:50)
[2023-10-16] MEDS: ENOXAPARIN SODIUM 40 MG/0.4 ML SYRINGE SUBQ (16:49)
[2023-10-16] MEDS: ASPIRIN 81 MG TABLET.DR PO (21:26)
[2023-10-16] MEDS: VANCOMYCIN HCL 1,250 MG in 0.9 % SODIUM CHLORIDE 250 ML 125 MG IV (21:27)
[2023-10-17] VITALS (13 sets, daily range): BP systolic 109–138; BP diastolic 64–82; PULSE 71–102; RESP 16–20; TEMP 36.7–36.8; O2SAT 91–93
[2023-10-17] MEDS: KETOROLAC TROMETHAMINE 30 MG/ML VIAL IVP ×3 (00:20→16:48)
[2023-10-17] MEDS: ACETAMINOPHEN 325 MG TABLET 650 MG PO (02:48)
[2023-10-17 05:44] LABS: Basophils Absolute Auto 0.1 10^3/uL (0.0-0.1); Basophils Percent Auto 0.5 % (0.2-2.0); Eosinophils Percent Auto 0.3 % (0.9-7.0); Hemoglobin 12.5 g/dL (14.0-18.0); Immature Granulocytes Abs Auto 0.07 10^3/uL (0.00-0.03); Immature Granulocytes Pct Auto 0.7 % (0.0-0.5); Lymphocytes Absolute Auto 0.6 10^3/uL (1.2-3.8); Lymphocytes Percent Auto 6.1 % (20.5-60.0); Mean Corpuscular HGB Conc 32.9 g/dL (29.9-35.2); Mean Corpuscular Hemoglobin 29.4 pg (25.9-34.0); Mean Corpuscular Volume 89.4 fL (80.0-94.0); Mean Platelet Volume 10.5 fL (9.5-13.5); Monocytes Absolute Auto 0.8 10^3/uL (0.3-0.8); Monocytes Percent Auto 8.1 % (1.7-12.0); Neutrophils Percent Auto 84.3 % (43.0-75.0); Platelet Count 152 10^3/uL (150-450); Red Blood Count 4.25 10^6/uL (4.70-6.10); White Blood Count 9.5 10^3/uL (4.0-11.0)
[2023-10-17 06:00] LABS: Alanine Aminotransferase 34 U/L (16-63); Albumin Globulin Ratio 0.8; Albumin Level 3.1 g/dL (3.4-5.0); Alkaline Phosphatase 53 U/L (46-116); Anion Gap 10.1; Aspartate Amino Transferase 16 U/L (15-37); BUN Creatinine Ratio 13.6; Bilirubin Total 0.6 mg/dL (0.2-1.0); Calcium 8.8 mg/dL (8.5-10.1); Carbon Dioxide 29.8 mmol/L (21.0-32.0); Chloride 104 mmol/L (98-107); Estimated GFR (African America >60 (>=60); Estimated GFR (Non-African Ame 60 (>=60); Globulin 3.7 g/dL; Glucose 113 mg/dL (74-106); Potassium 3.9 mmol/L (3.5-5.1); Sodium 140 mmol/L (136-145); Total Protein 6.8 g/dL (6.4-8.2)
[2023-10-17 07:14] LABS: Uric Acid 4.2 mg/dL (3.5-7.2)
[2023-10-17] MEDS: OXYCODONE HCL/ACETAMINOPHEN 5MG/325MG 2 TAB PO ×2 (08:20→21:14)
[2023-10-17] MEDS: ATORVASTATIN CALCIUM 20 MG TABLET PO (08:21)
[2023-10-17] MEDS: BUTALB/ACETAMINOPHEN/CAFFEINE 50-325-40MG TABLET 2 TAB PO ×2 (08:21→17:55)
[2023-10-17] MEDS: HYDROCHLOROTHIAZIDE 25 MG TABLET PO (08:21)
[2023-10-17] MEDS: PIPERACILLIN SODIUM/TAZOBACTAM 3.375 GM in 0.9 % SODIUM CHLORIDE 50 ML IV ×3 (08:21→23:21)
[2023-10-17] MEDS: ASPIRIN 81 MG TABLET.DR PO ×2 (08:21→21:14)
[2023-10-17] MEDS: LISINOPRIL 20 MG TABLET PO (08:21)
[2023-10-17] MEDS: METOPROLOL SUCCINATE 50 MG TAB.ER.24H PO (08:21)
[2023-10-17] MEDS: ALLOPURINOL 100 MG TABLET PO (08:21)
--- NOTE | 2023-10-17 08:52 | PM.PN ---
Progress Note: Subjective Subjective Interval history: Pain improved this morning in the foot. Had a headache all night that did improve with Fioricet. No fevers or chills. Discussed CT findings of possible abscess vs inflammation of the tendon. Ice in place now on the foot. No other concerns. Exam Narrative Exam Narrative: General: Patient is alert, and oriented to person, place and time with normal affect, proper hygiene Head: atraumatic, acephalic Eyes: PERRLA, no nystagmus present, conjunctiva clear, no scleral icterus Heart: Normal rate and rhythm, no murmurs/rubs/gallops Lungs: no audible wheezes, crackles and normal breath sounds all lung yost Abdomen: Normal audible bowel sounds, no distension, No palpable masses, no organomegaly, no rebound/guarding/ or rigidity Musculoskeletal: right ankle compression c/d/I with ice wrap Neuro: CN II-X grossly intact, normal sensation upper and lower extremities Constitutional Vital Signs, click to edit/add: Last Vital Signs Temp 98.0 F 10/17/23 05:10 Pulse 85 10/17/23 05:10 Resp 20 10/17/23 05:10 BP 120/74 10/17/23 05:10 Pulse Ox 92 L 10/17/23 05:10 O2 Del Method Room Air 10/17/23 05:10 Progress Note: Objective Labs Labs: Short CBC 10/17/23 Range/Units 05:11 WBC 9.5 (4.0-11.0) 10^3/uL Hgb 12.5 L (14.0-18.0) g/dL Hct 38.0 L (42.0-54.0) % Plt Count 152 (150-450) 10^3/uL BMP 10/17/23 05:11 Sodium 140 Potassium 3.9 Chloride 104 Carbon Dioxide 29.8 BUN 17.0 Creatinine 1.25 Glucose 113 H Calcium 8.8 Liver Function 10/17/23 Range/Units 05:11 Total Bilirubin 0.6 (0.2-1.0) mg/dL AST 16 (15-37) U/L ALT 34 (16-63) U/L Alkaline Phosphatase 53 (46-116) U/L Albumin 3.1 L (3.4-5.0) g/dL Progress Note: A&P Assessment and Plan (1) Cellulitis of right ankle: Onset Date: 10/16/23 Assessment and Plan: normal white blood cell count,elevated ESR and CRP, uric acid normal, per podiatry recommendations CT scan of the ankle was performed to evaluate possibility of abscess or infection will continue to monitor for improvement before OR again, continue vancomycin and Zosyn for broad-spectrum control (2) Arthritis of right ankle: Assessment and Plan: continue Toradol and oxycodone as needed (3) High cholesterol: Assessment and Plan: continue statin (4) Hypertension: Assessment and Plan: continue metoprolol, lisinopril hydrochlorothiazide Qualifiers: Hypertension type: primary hypertension Qualified Code(s): I10 - Essential (primary) hypertension Plan patient is a full code Patient will be placed in inpatient status and is expected to stay more than two days Will continue Lovenox for deep vein thrombosis prophylaxis
--- NOTE | 2023-10-17 09:12 | PM.PN ---
Progress Note: Subjective Subjective Interval history: patient sleeping in bed and easily aroused. He relates to difficulty sleeping overnight relating to headache. he has been able to eat a little however he relates his appetite is not normal. He relates that his ankle pain is better but still present and that he is able to move his ankle without much pain. he denies calf pain, shortness of breath and chest pain Exam Narrative Exam Narrative: skin: Incision largely intact with partial thickness 0.2 cm opening without bleeding or drainage. Erythema improved Vascular: Pedal pulses are palpable. Swelling down significantly. no calf pain on squeeze MSK: No pain on palpation. no fluctuance. No pain out of portion. Range of motion of the ankle does not elicit pain. Constitutional Vital Signs, click to edit/add: Last Vital Signs Temp 98.0 F 10/17/23 05:10 Pulse 85 10/17/23 05:10 Resp 20 10/17/23 05:10 BP 120/74 10/17/23 05:10 Pulse Ox 92 L 10/17/23 05:10 O2 Del Method Room Air 10/17/23 05:10 Progress Note: Objective Labs Labs: Short CBC 10/17/23 Range/Units 05:11 WBC 9.5 (4.0-11.0) 10^3/uL Hgb 12.5 L (14.0-18.0) g/dL Hct 38.0 L (42.0-54.0) % Plt Count 152 (150-450) 10^3/uL BMP 10/17/23 05:11 Sodium 140 Potassium 3.9 Chloride 104 Carbon Dioxide 29.8 BUN 17.0 Creatinine 1.25 Glucose 113 H Calcium 8.8 Liver Function 10/17/23 Range/Units 05:11 Total Bilirubin 0.6 (0.2-1.0) mg/dL AST 16 (15-37) U/L ALT 34 (16-63) U/L Alkaline Phosphatase 53 (46-116) U/L Albumin 3.1 L (3.4-5.0) g/dL Progress Note: A&P Assessment and Plan (1) Cellulitis of right ankle: Onset Date: 10/16/23 Assessment and Plan: on vancomycin/Zosyn and clinically improving (2) Arthritis of right ankle: (3) High cholesterol: (4) Hypertension: Qualifiers: Hypertension type: primary hypertension Qualified Code(s): I10 - Essential (primary) hypertension Plan patient seen and evaluated and I discussed the case with Dr. Yost CT scan was reviewed with patient and there is tenosynovitis around the tibialis anterior tendon. As stated by the radiologist this could represent infection however it may also represent postsurgical changes and clinically he is improving. 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 Patient does have a history of gout and uric acid is normal. I recommended at least an additional day of IV antibiotics, rest, elevation and compression If he does not clinically continue to improve we will consider taking him for I and D Will follow
[2023-10-17] MEDS: VANCOMYCIN HCL 1,250 MG in 0.9 % SODIUM CHLORIDE 250 ML 250 MG IV (09:39)
[2023-10-17] MEDS: HYDROMORPHONE HCL 1 MG/ML CARTRIDGE IVP (13:17)
[2023-10-17] MEDS: ENOXAPARIN SODIUM 40 MG/0.4 ML SYRINGE SUBQ (16:47)
[2023-10-17] MEDS: VANCOMYCIN HCL 1,250 MG in 0.9 % SODIUM CHLORIDE 250 ML 125 MG IV (21:14)
[2023-10-17] MEDS: TRAZODONE HCL 50 MG TABLET PO (21:14)
[2023-10-17] MEDS: 0.9 % SODIUM CHLORIDE 250 ML IV.SOLN 10 ML IV (21:15)
[2023-10-18] VITALS (29 sets, daily range): BP systolic 117–145; BP diastolic 67–89; PULSE 69–93; RESP 12–21; TEMP 36.5–37; O2SAT 90–96
[2023-10-18] MEDS: KETOROLAC TROMETHAMINE 30 MG/ML VIAL IVP ×2 (04:09→21:07)
[2023-10-18] MEDS: BUTALB/ACETAMINOPHEN/CAFFEINE 50-325-40MG TABLET 2 TAB PO ×3 (04:09→21:07)
[2023-10-18 05:22] LABS: Basophils Percent Auto 0.4 % (0.2-2.0); Eosinophils Absolute Auto 0.1 10^3/uL (0.0-0.7); Eosinophils Percent Auto 1.5 % (0.9-7.0); Hematocrit 35.7 % (42.0-54.0); Hemoglobin 11.7 g/dL (14.0-18.0); Immature Granulocytes Abs Auto 0.03 10^3/uL (0.00-0.03); Immature Granulocytes Pct Auto 0.4 % (0.0-0.5); Lymphocytes Absolute Auto 0.5 10^3/uL (1.2-3.8); Lymphocytes Percent Auto 6.2 % (20.5-60.0); Mean Corpuscular HGB Conc 32.8 g/dL (29.9-35.2); Mean Corpuscular Hemoglobin 29.4 pg (25.9-34.0); Mean Corpuscular Volume 89.7 fL (80.0-94.0); Mean Platelet Volume 10.4 fL (9.5-13.5); Monocytes Absolute Auto 0.6 10^3/uL (0.3-0.8); Monocytes Percent Auto 7.8 % (1.7-12.0); Neutrophils Absolute Auto 6.5 10^3/uL (1.4-6.5); Neutrophils Percent Auto 83.7 % (43.0-75.0); Platelet Count 153 10^3/uL (150-450); Red Blood Count 3.98 10^6/uL (4.70-6.10); White Blood Count 7.8 10^3/uL (4.0-11.0)
[2023-10-18 06:20] LABS: Alanine Aminotransferase 30 U/L (16-63); Albumin Globulin Ratio 0.7; Albumin Level 2.7 g/dL (3.4-5.0); Alkaline Phosphatase 52 U/L (46-116); Anion Gap 6.9; Aspartate Amino Transferase 21 U/L (15-37); BUN Creatinine Ratio 12.3; Bilirubin Total 0.4 mg/dL (0.2-1.0); Calcium 8.5 mg/dL (8.5-10.1); Carbon Dioxide 27.9 mmol/L (21.0-32.0); Chloride 103 mmol/L (98-107); Estimated GFR (African America >60 (>=60); Estimated GFR (Non-African Ame >60 (>=60); Globulin 3.8 g/dL; Glucose 106 mg/dL (74-106); Potassium 3.8 mmol/L (3.5-5.1); Sodium 134 mmol/L (136-145); Total Protein 6.5 g/dL (6.4-8.2)
--- NOTE | 2023-10-18 08:02 | PM.PN ---
Progress Note: Subjective Subjective Interval history: Pain not better compared to yesterday. Headache improved. No fevers or chills, CP, calf pain or SOB. patient relates yesterday he attempted to get on the knee scooter and was unable due to right ankle pain. He also relates that he attempted to place weight on the ankle which also exacerbated this pain Exam Narrative Exam Narrative: incision remains intact without drainage or fluctuance. No calf pain on squeeze. the erythema overall improved however over the incision erythema remains Active plantarflexion of the ankle elicits no pain however active dorsiflexion does cause pain. Constitutional Vital Signs, click to edit/add: Last Vital Signs Temp 98.6 F 10/18/23 07:00 Pulse 80 10/18/23 07:00 Resp 16 10/18/23 07:00 BP 117/71 10/18/23 07:00 Pulse Ox 92 L 10/18/23 07:00 O2 Del Method Room Air 10/18/23 07:00 Progress Note: Objective Labs Labs: Short CBC 10/18/23 Range/Units 04:57 WBC 7.8 (4.0-11.0) 10^3/uL Hgb 11.7 L (14.0-18.0) g/dL Hct 35.7 L (42.0-54.0) % Plt Count 153 (150-450) 10^3/uL BMP 10/18/23 04:57 Sodium 134 L Potassium 3.8 Chloride 103 Carbon Dioxide 27.9 BUN 13.0 Creatinine 1.06 Glucose 106 Calcium 8.5 Liver Function 10/18/23 Range/Units 04:57 Total Bilirubin 0.4 (0.2-1.0) mg/dL AST 21 (15-37) U/L ALT 30 (16-63) U/L Alkaline Phosphatase 52 (46-116) U/L Albumin 2.7 L (3.4-5.0) g/dL Progress Note: A&P Assessment and Plan (1) Cellulitis of right ankle: Onset Date: 10/16/23 Assessment and Plan: continue broad-spectrum antibiotics: vancomycin and Zosyn (2) Arthritis of right ankle: (3) High cholesterol: (4) Hypertension: Qualifiers: Hypertension type: primary hypertension Qualified Code(s): I10 - Essential (primary) hypertension Plan there remains a concern for deep space infection therefore recommended incision and drainage Patient has been nothing by mouth since midnight Continue broad-spectrum IV antibiotics Patient will be placed into a splint postoperative and will be nonweightbearing OR and anesthesia notified.
[2023-10-18] MEDS: PIPERACILLIN SODIUM/TAZOBACTAM 3.375 GM in 0.9 % SODIUM CHLORIDE 50 ML IV ×3 (08:33→23:19)
--- NOTE | 2023-10-18 08:35 | PM.PN ---
Progress Note: Subjective Subjective Interval history: Patient taken to the ER today by podiatry for drainage of abscess and joint aspiration. Wound Vac placed. Patient still complaining of occasional headaches and foot pain. Denies fevers and chills, no n/v/d. Plan is to take back to OR for Closure. Exam Narrative Exam Narrative: General: Patient is alert, and oriented to person, place and time with normal affect, proper hygiene Head: atraumatic, acephalic Eyes: PERRLA, no nystagmus present, conjunctiva clear, no scleral icterus Heart: Normal rate and rhythm, no murmurs/rubs/gallops Lungs: no audible wheezes, crackles and normal breath sounds all lung yost Abdomen: Normal audible bowel sounds, no distension, No palpable masses, no organomegaly, no rebound/guarding/ or rigidity Musculoskeletal: right ankle wound vac in place Neuro: CN II-X grossly intact, normal sensation upper and lower extremities Constitutional Vital Signs, click to edit/add: Last Vital Signs Temp 98.6 F 10/18/23 07:00 Pulse 80 10/18/23 07:00 Resp 16 10/18/23 07:00 BP 117/71 10/18/23 07:00 Pulse Ox 92 L 10/18/23 07:00 O2 Del Method Room Air 10/18/23 07:00 Progress Note: Objective Labs Labs: Short CBC 10/18/23 Range/Units 04:57 WBC 7.8 (4.0-11.0) 10^3/uL Hgb 11.7 L (14.0-18.0) g/dL Hct 35.7 L (42.0-54.0) % Plt Count 153 (150-450) 10^3/uL BMP 10/18/23 04:57 Sodium 134 L Potassium 3.8 Chloride 103 Carbon Dioxide 27.9 BUN 13.0 Creatinine 1.06 Glucose 106 Calcium 8.5 Liver Function 10/18/23 Range/Units 04:57 Total Bilirubin 0.4 (0.2-1.0) mg/dL AST 21 (15-37) U/L ALT 30 (16-63) U/L Alkaline Phosphatase 52 (46-116) U/L Albumin 2.7 L (3.4-5.0) g/dL Progress Note: A&P Assessment and Plan (1) Cellulitis of right ankle: Onset Date: 10/16/23 Assessment and Plan: normal white blood cell count,elevated ESR and CRP, uric acid normal, continue vancomycin and Zosyn for broad-spectrum control, had I&D today, awaiting cultures, non weight bearing right (2) Abscess of ankle: Assessment and Plan: see #1 (3) Arthritis of right ankle: Assessment and Plan: continue allopurinol (4) High cholesterol: Assessment and Plan: continue statin (5) Hypertension: Assessment and Plan: continue metoprolol, lisinopril hydrochlorothiazide Qualifiers: Hypertension type: primary hypertension Qualified Code(s): I10 - Essential (primary) hypertension Plan patient is a full code Will continue Lovenox for deep vein thrombosis prophylaxis possible closure of wound on
[2023-10-18] MEDS: LACTATED RINGER'S SOLUTION 1,000 ML 50 ML IV (08:36)
--- NOTE | 2023-10-18 09:10 | P.ORON_ITS ---
Brief Operative Note Date of procedure: 10/18/23 Pre-op diagnosis: right ankle infection Procedure: PROCEDURES PERFORMED: right ankle incision and drainage INDICATION FOR PROCEDURE: see consultation and progress notes INTRAOPERATIVE FINDINGS: upon incision of deep fascia there is a small amount of purulence surrounding the tibialis anterior tendon sheath. The tendon and tendon sheath were intact and grossly appeared normal without necrosis. Incision of the capsule evacuated watery pale yellow joint fluid. PROCEDURE IN DETAIL: Patient was identified in pre op and consent was reviewed. Correct side and site were identified and marked. Pre-op antibiotics were started. Patient was brought to OR suite and place on table in a supine position. General anesthesia was administered. Tourniquet applied. Operative extremity was prepped and draped in usual sterile fashion. Formal time-out was performed and the foot/ankle were elevated for several minutes and the tourniquet was inflated. Utilizing a scalpel, the incision on the anterior ankle was opened. incision and the deep fascia revealed a small amount of purulence approximately 2 mL which was superficial to the capsule and tibialis anterior tendon sheath. Soft tissue swabs of the purulence was obtained. Further dissection with a combination of sharp and blunt dissection gained access to the tibialis anterior tendon sheath which was incised and reflected. the tendon and tendon sheath appeared normal without evidence of infection. No evidence of deep soft tissue necrosis. Incision of the capsule allowed evacuation of 10 mL of watery pale yellow joint fluid. clean instruments were used to obtain a small piece of capsule which was sent to pathology. Surgical site was irrigated with 3 L of normal saline on pulse lavage and the tourniquet was deflated. All soft tissues blood appropriately and hemostasis was controlled with temporary pressure and elevation. Irresept was also used multiple times after cultures were obtained. Adaptic was placed over the tibialis anterior tendon followed by black granular foam which was held in place by VAC drape. Then a hole was cut into the drape and a track pad was placed accordingly. Suction was obtained from the wound VAC which was set at 125 mmHg continuous.Veraflow setting will be initiated on the floor. Multiple layers of cast padding were then applied to ensure all bony prominences were well-padded. A plaster posterior splint was then applied which was held in place by Lex wraps. Capillary refill time to all digits was evaluated and had appropriate response. Patient tolerated the procedure and anesthesia well transferred to the recovery room with vital signs stable and brisk capillary refill to the toes. POSTOPERATIVE PLAN: transfer to the PACU then back to the floor Continue broad-spectrum antibiotics Nonweightbearing right ankle Plan for repeat I and D and hopeful delayed closure on Implants: Wound VAC Anesthesia: General-LMA Surgeon: Kyler Caldera [employer] Teacher: Kush Hatfield Estimated blood loss (mL): 25 Pathology: other (Tissue/swabs right ankle) Condition: stable Disposition: floor
[2023-10-18] MEDS: BUPIVACAINE HCL 0.5% PF 50 MG/10 ML VIAL 20 ML INJ (09:47)
[2023-10-18 10:30] LABS: Glucometer 107 mg/dL (74-106)
[2023-10-18] MEDS: OXYCODONE HCL/ACETAMINOPHEN 5MG/325MG 2 TAB PO ×2 (10:36→22:39)
[2023-10-18] MEDS: ALLOPURINOL 100 MG TABLET PO (12:07)
[2023-10-18] MEDS: HYDROCHLOROTHIAZIDE 25 MG TABLET PO (12:08)
[2023-10-18] MEDS: ATORVASTATIN CALCIUM 20 MG TABLET PO (12:08)
[2023-10-18] MEDS: LISINOPRIL 20 MG TABLET PO (12:09)
[2023-10-18] MEDS: METOPROLOL SUCCINATE 50 MG TAB.ER.24H PO (12:10)
[2023-10-18] MEDS: VANCOMYCIN HCL 1,250 MG in 0.9 % SODIUM CHLORIDE 250 ML 250 MG IV (12:55)
--- NOTE | 2023-10-18 14:33 | PC.NURSE ---
wound vac intact on top right foot, 125cm continuous suction, collection container noted to have red drainage
--- NOTE | 2023-10-18 16:18 | SWNOTE1 ---
Pt will return to surgery on 10/21/23. SW to assess for needs tomorrow.
[2023-10-18] MEDS: ENOXAPARIN SODIUM 40 MG/0.4 ML SYRINGE SUBQ (21:07)
[2023-10-18] MEDS: VANCOMYCIN HCL 1,500 MG in 0.9 % SODIUM CHLORIDE 500 ML 250 MG IV (21:08)
[2023-10-18] MEDS: DIPHENHYDRAMINE HCL 25 MG CAPSULE PO (23:21)
[2023-10-19] VITALS (17 sets, daily range): BP systolic 95–134; BP diastolic 54–81; PULSE 62–94; RESP 18; TEMP 36.4–36.6; O2SAT 91–93
[2023-10-19] MEDS: OXYCODONE HCL/ACETAMINOPHEN 5MG/325MG 2 TAB PO ×3 (04:27→19:32)
[2023-10-19] MEDS: VANCOMYCIN HCL 1,500 MG in 0.9 % SODIUM CHLORIDE 500 ML 200 MG IV (05:16)
[2023-10-19 05:54] LABS: Basophils Percent Auto 0.3 % (0.2-2.0); Eosinophils Percent Auto 0.2 % (0.9-7.0); Hematocrit 36.5 % (42.0-54.0); Hemoglobin 11.6 g/dL (14.0-18.0); Immature Granulocytes Abs Auto 0.03 10^3/uL (0.00-0.03); Immature Granulocytes Pct Auto 0.5 % (0.0-0.5); Lymphocytes Absolute Auto 0.8 10^3/uL (1.2-3.8); Lymphocytes Percent Auto 11.8 % (20.5-60.0); Mean Corpuscular HGB Conc 31.8 g/dL (29.9-35.2); Mean Corpuscular Hemoglobin 29.1 pg (25.9-34.0); Mean Corpuscular Volume 91.7 fL (80.0-94.0); Monocytes Absolute Auto 0.4 10^3/uL (0.3-0.8); Monocytes Percent Auto 6.2 % (1.7-12.0); Neutrophils Absolute Auto 5.3 10^3/uL (1.4-6.5); Platelet Count 176 10^3/uL (150-450); Red Blood Count 3.98 10^6/uL (4.70-6.10); Red Cell Distribution Width 13.9 % (11.0-15.0); White Blood Count 6.5 10^3/uL (4.0-11.0)
[2023-10-19 06:22] LABS: Alanine Aminotransferase 24 U/L (16-63); Albumin Level 2.6 g/dL (3.4-5.0); Alkaline Phosphatase 52 U/L (46-116); Anion Gap 10.4; Aspartate Amino Transferase 13 U/L (15-37); BUN Creatinine Ratio 12.9; Bilirubin Total 0.3 mg/dL (0.2-1.0); Calcium 8.6 mg/dL (8.5-10.1); Carbon Dioxide 27.3 mmol/L (21.0-32.0); Chloride 106 mmol/L (98-107); Estimated GFR (African America >60 (>=60); Estimated GFR (Non-African Ame >60 (>=60); Glucose 146 mg/dL (74-106); Potassium 3.7 mmol/L (3.5-5.1); Sodium 140 mmol/L (136-145); Total Protein 6.6 g/dL (6.4-8.2)
[2023-10-19 06:33] LABS: Albumin Globulin Ratio 0.7
[2023-10-19] MEDS: KETOROLAC TROMETHAMINE 30 MG/ML VIAL IVP ×3 (08:22→23:48)
[2023-10-19] MEDS: ATORVASTATIN CALCIUM 20 MG TABLET PO (08:23)
[2023-10-19] MEDS: HYDROCHLOROTHIAZIDE 25 MG TABLET PO (08:23)
[2023-10-19] MEDS: ALLOPURINOL 100 MG TABLET PO (08:23)
[2023-10-19] MEDS: PIPERACILLIN SODIUM/TAZOBACTAM 3.375 GM in 0.9 % SODIUM CHLORIDE 50 ML IV ×3 (08:24→23:43)
[2023-10-19] MEDS: LISINOPRIL 20 MG TABLET PO (08:24)
[2023-10-19] MEDS: METOPROLOL SUCCINATE 50 MG TAB.ER.24H PO (08:24)
[2023-10-19] MEDS: 0.9 % SODIUM CHLORIDE 250 ML IV.SOLN 10 ML IV (08:24)
--- NOTE | 2023-10-19 12:30 | CM.NOTE ---
Rounds made with Dr. Yost, discussed with pt plan of care. Pt verbalizes understanding. No discharge today. Wound vac therapy continues and pain control.
--- NOTE | 2023-10-19 13:50 | P.PN_ITS ---
<Statement entered by Sadaf Yost DO - 10/19/23 17:10> This documentation has been reviewed and approved.The patient has also been seen and evaluated by me as well as the chart, labs. I agree with the above assessment and plan. Progress Note: Subjective Subjective Interval history: 10/19/23 1110 The patient is resting comfortably in bed. He reports significant postoperative pain, but this is adequately controlled with his current pain management regimen per the podiatry service. Wound VAC remains in place that was initiated in the OR yesterday. Dr Caldera plans to take the patient back to the OR on 10/21/2023 for repeat I&D and closure of the wound. Wound cultures obtained intraoperatively are still pending. The patient remains on IVPB Zosyn and Vanco for broad gram-negative and positive coverage for his postoperative ankle abscess. He has been afebrile for more than 48 hrs. Exam Constitutional Vital Signs, click to edit/add: Last Vital Signs Temp 97.6 F 10/19/23 05:37 Pulse 70 10/19/23 12:00 Resp 18 10/19/23 05:37 BP 95/54 10/19/23 05:37 Pulse Ox 92 L 10/19/23 11:52 O2 Del Method Room Air 10/19/23 11:52 Common normals: no apparent distress, oriented x3 and alert General appearance: cooperative Orientation/consciousness: Yes awake HENGA Common normals: normocephalic, head/scalp atraumatic and hearing grossly normal bilaterally Eye Common normals: PERRL, EOMs intact bilaterally, conjunctivae normal and no scleral icterus General eye: normal appearance of both eyes Chest Common normals: inspection of chest normal Chest: symmetrical chest wall rise Respiratory Common normals: normal respiratory effort, no use of accessory muscles and clear to auscultation bilaterally Effort & inspection: able to speak in complete sentences Cardio Common normals: regular rate, regular rhythm, S1 normal heart sound, S2 normal heart sound, no murmurs and peripheral pulses 2+ throughout GI Common normals: Normal to inspection, nondistended, normoactive bowel sounds present, soft to palpation, non-tender and no hepatosplenomegaly Bladder/kidney exam: bladder normal to palpation Extremity Common normals: normal to inspection and no calf tenderness General: no clubbing and no cyanosis Right lower extremity: ankle joint (Post op splint in place. Adequate CMS to toes) Neuro Common normals: CN's II-XII intact bilaterally, moves all extremities, no focal motor deficits and no sensory deficits noted Psych Common normals: mental status grossly normal Progress Note: Objective Labs Labs: Short CBC 10/19/23 Range/Units 05:30 WBC 6.5 (4.0-11.0) 10^3/uL Hgb 11.6 L (14.0-18.0) g/dL Hct 36.5 L (42.0-54.0) % Plt Count 176 (150-450) 10^3/uL BMP 10/19/23 05:30 Sodium 140 Potassium 3.7 Chloride 106 Carbon Dioxide 27.3 BUN 15.0 Creatinine 1.16 Glucose 146 H Calcium 8.6 Liver Function 10/19/23 Range/Units 05:30 Total Bilirubin 0.3 (0.2-1.0) mg/dL AST 13 L (15-37) U/L ALT 24 (16-63) U/L Alkaline Phosphatase 52 (46-116) U/L Albumin 2.6 L (3.4-5.0) g/dL Progress Note: A&P Assessment and Plan (1) Cellulitis of right ankle: Onset Date: 10/16/23 Assessment and Plan: ACUTE * Cellulitis of the cindy-incisional area following R Talectomy/Talus replacement per Dr Caldera on 09/10/23 * Pt is NWB to the affected extremity * No leukocytosis, but elevated CRP/ESR on admission * Pt has been afebrile > 48 hrs * Continue IVPB Zosyn and Vanco for broad gram -/+ coverage pending culture results * Daily CBC, CMP (2) Abscess of ankle: Assessment and Plan: ACUTE * To previous talectomy site * s/p OR I&D per Dr Caldera on 10/18/23 w/ wound vac placed intraoperatively * Wound cultures obtained in OR - pending * Continue IVPB Zosyn/Vanco (3) Arthritis of right ankle: Assessment and Plan: CHRONIC * s/p R Talectomy/Talus replacement per Dr Caldera on 09/10/23 (4) High cholesterol: Assessment and Plan: CHRONIC * Continue home statin (5) Hypertension: Assessment and Plan: CHRONIC * Continue home ACEi, HCTZ, Toprol XL Qualifiers: Hypertension type: primary hypertension Qualified Code(s): I10 - Essential (primary) hypertension
[2023-10-19] MEDS: DIPHENHYDRAMINE HCL 25 MG CAPSULE 50 MG PO (20:37)
[2023-10-19] MEDS: ENOXAPARIN SODIUM 40 MG/0.4 ML SYRINGE SUBQ (20:37)
[2023-10-19] MEDS: SENNOSIDES 8.6 MG TABLET PO (20:38)
[2023-10-19] MEDS: DOCUSATE SODIUM 100 MG CAPSULE 200 MG PO (20:38)
[2023-10-19] MEDS: VANCOMYCIN HCL 1,500 MG in 0.9 % SODIUM CHLORIDE 500 ML 250 MG IV (21:26)
[2023-10-20] VITALS (21 sets, daily range): BP systolic 119–179; BP diastolic 65–92; PULSE 48–111; RESP 16–18; TEMP 36.3–36.8; O2SAT 92–96
[2023-10-20] MEDS: OXYCODONE HCL/ACETAMINOPHEN 5MG/325MG 2 TAB PO ×4 (03:35→23:43)
[2023-10-20] MEDS: VANCOMYCIN HCL 1,500 MG in 0.9 % SODIUM CHLORIDE 500 ML 200 MG IV ×2 (04:55→21:00)
[2023-10-20 05:19] LABS: Basophils Absolute Auto 0.1 10^3/uL (0.0-0.1); Eosinophils Absolute Auto 0.2 10^3/uL (0.0-0.7); Eosinophils Percent Auto 3.8 % (0.9-7.0); Hemoglobin 12.7 g/dL (14.0-18.0); Immature Granulocytes Abs Auto 0.07 10^3/uL (0.00-0.03); Immature Granulocytes Pct Auto 1.4 % (0.0-0.5); Lymphocytes Percent Auto 40.4 % (20.5-60.0); Mean Corpuscular HGB Conc 32.6 g/dL (29.9-35.2); Mean Corpuscular Hemoglobin 29.8 pg (25.9-34.0); Mean Corpuscular Volume 91.5 fL (80.0-94.0); Mean Platelet Volume 10.1 fL (9.5-13.5); Monocytes Absolute Auto 0.4 10^3/uL (0.3-0.8); Monocytes Percent Auto 7.8 % (1.7-12.0); Neutrophils Absolute Auto 2.3 10^3/uL (1.4-6.5); Neutrophils Percent Auto 45.6 % (43.0-75.0); Platelet Count 208 10^3/uL (150-450); Red Blood Count 4.26 10^6/uL (4.70-6.10); Red Cell Distribution Width 14.2 % (11.0-15.0)
[2023-10-20 05:50] LABS: Alanine Aminotransferase 44 U/L (16-63); Albumin Globulin Ratio 0.7; Albumin Level 2.7 g/dL (3.4-5.0); Alkaline Phosphatase 52 U/L (46-116); Anion Gap 11.6; Aspartate Amino Transferase 29 U/L (15-37); BUN Creatinine Ratio 12.9; Bilirubin Total 0.3 mg/dL (0.2-1.0); Calcium 8.8 mg/dL (8.5-10.1); Carbon Dioxide 26.5 mmol/L (21.0-32.0); Chloride 108 mmol/L (98-107); Estimated GFR (African America >60 (>=60); Estimated GFR (Non-African Ame >60 (>=60); Globulin 4.1 g/dL; Glucose 82 mg/dL (74-106); Potassium 4.1 mmol/L (3.5-5.1); Sodium 142 mmol/L (136-145); Total Protein 6.8 g/dL (6.4-8.2)
[2023-10-20] MEDS: KETOROLAC TROMETHAMINE 30 MG/ML VIAL IVP ×2 (06:05→12:20)
--- NOTE | 2023-10-20 10:15 | P.PN_ITS ---
<Statement entered by Sadaf Yost, - 10/20/23 17:20> This documentation has been reviewed and approved .I also seen and evaluated patient, reviewed chart, labs and radiology. I agree with the assessment and plan. Probable OR tomorrow, NPO after midnight. Progress Note: Subjective Subjective Interval history: 10/20/23 1015 Pt resting comfortably in bed. C/o poor pain control for ankle and migraine [id number] d/t lateness of pain med administration, pain meds as ordered give adequate co ntrol. Intraop wound cultures growing perrin sensitive staph. Remains afebrile and without leukocytosis. Repeat I&D vs repeat talectomy scheduled for tomorrow, 10/21/23. Pt will be NPO at midnight for OR in AM. Exam Constitutional Vital Signs, click to edit/add: Last Vital Signs Temp 97.4 F L 10/20/23 07:38 Pulse 85 10/20/23 10:00 Resp 18 10/20/23 07:38 BP 179/92 H 10/20/23 07:38 Pulse Ox 92 L 10/20/23 08:30 O2 Del Method Room Air 10/20/23 08:30 Common normals: no apparent distress, oriented x3 and alert Orientation/consciousness: Yes awake HENMT Common normals: normocephalic, head/scalp atraumatic and hearing grossly normal bilaterally Eye Common normals: PERRL, EOMs intact bilaterally, conjunctivae normal and no scleral icterus General eye: normal appearance of both eyes Chest Common normals: inspection of chest normal Chest: symmetrical chest wall rise Respiratory Common normals: normal respiratory effort, no use of accessory muscles and clear to auscultation bilaterally Effort & inspection: able to speak in complete sentences Cardio Common normals: regular rate, regular rhythm, S1 normal heart sound, S2 normal heart sound, no murmurs and peripheral pulses 2+ throughout GI Common normals: Normal to inspection, nondistended, normoactive bowel sounds present, soft to palpation, non-tender and no hepatosplenomegaly Bladder/kidney exam: bladder normal to palpation Extremity Common normals: normal to inspection and no calf tenderness General: no clubbing and no cyanosis Right lower extremity: ankle joint (Post op splint in place. Adequate CMS to toes) Neuro Common normals: oriented x3, moves all extremities, no focal motor deficits and no sensory deficits noted Psych Common normals: mental status grossly normal Progress Note: Objective Labs Labs: Short CBC 10/20/23 Range/Units 04:40 WBC 5.0 (4.0-11.0) 10^3/uL Hgb 12.7 L (14.0-18.0) g/dL Hct 39.0 L (42.0-54.0) % Plt Count 208 (150-450) 10^3/uL BMP 10/20/23 04:40 Sodium 142 Potassium 4.1 Chloride 108 H Carbon Dioxide 26.5 BUN 16.0 Creatinine 1.24 Glucose 82 Calcium 8.8 Liver Function 10/20/23 Range/Units 04:40 Total Bilirubin 0.3 (0.2-1.0) mg/dL AST 29 (15-37) U/L ALT 44 (16-63) U/L Alkaline Phosphatase 52 (46-116) U/L Albumin 2.7 L (3.4-5.0) g/dL Progress Note: A&P Assessment and Plan (1) Cellulitis of right ankle: Onset Date: 10/16/23 Assessment and Plan: ACUTE * Cellulitis of the cindy-incisional area following R Talectomy/Talus replacement per Dr Caldera on 09/10/23 * Pt is NWB to the affected extremity since 09/10/23 * No leukocytosis, but elevated CRP/ESR on admission * Pt has been afebrile > 72 hrs * Continue IVPB Zosyn and Vanco for broad gram -/+ coverage * Daily CBC, CMP (2) Abscess of ankle: Assessment and Plan: ACUTE * At previous talectomy site * s/p OR I&D per Dr Caldera on 10/18/23 w/ wound vac placed intraoperatively * Wound cultures obtained in OR * Wound growing perrin-sensitive staph * Likely d/c on oral ABX on 10/22/23 * Continue IVPB Zosyn/Vanco (3) Arthritis of right ankle: Assessment and Plan: CHRONIC * s/p R Talectomy/Talus replacement per Dr Caldera on 09/10/23 (4) High cholesterol: Assessment and Plan: CHRONIC * Continue home statin (5) Hypertension: Assessment and Plan: CHRONIC * Continue home ACEi, HCTZ, Toprol XL Qualifiers: Hypertension type: primary hypertension Qualified Code(s): I10 - Essential (primary) hypertension
[2023-10-20] MEDS: HYDROCHLOROTHIAZIDE 25 MG TABLET PO (10:27)
[2023-10-20] MEDS: ALLOPURINOL 100 MG TABLET PO (10:27)
[2023-10-20] MEDS: BUTALB/ACETAMINOPHEN/CAFFEINE 50-325-40MG TABLET 2 TAB PO (10:28)
[2023-10-20] MEDS: LISINOPRIL 20 MG TABLET PO (10:29)
[2023-10-20] MEDS: METOPROLOL SUCCINATE 50 MG TAB.ER.24H PO (10:29)
[2023-10-20] MEDS: ATORVASTATIN CALCIUM 20 MG TABLET PO (10:29)
[2023-10-20] MEDS: PIPERACILLIN SODIUM/TAZOBACTAM 3.375 GM in 0.9 % SODIUM CHLORIDE 50 ML IV ×3 (10:30→23:35)
[2023-10-20] MEDS: 0.9 % SODIUM CHLORIDE 250 ML 10 ML IV (10:35)
--- NOTE | 2023-10-20 13:22 | PM.PN ---
Progress Note: Subjective Subjective Interval history: 10/20/23 1015 Pt resting comfortably in bed. He reports continued ankle pain and headache. Intraop wound cultures growing perrin sensitive staph. Remains afebrile and without leukocytosis. Repeat I&D tomorrow, 10/21/23. Exam Narrative Exam Narrative: Splint is clean dry and intact and VAC holding suction. Serosanguineous output noted. Able to lose toes without pain Constitutional Vital Signs, click to edit/add: Last Vital Signs Temp 97.4 F L 10/20/23 07:38 Pulse 79 10/20/23 11:53 Resp 16 10/20/23 11:03 BP 179/92 H 10/20/23 07:38 Pulse Ox 92 L 10/20/23 08:30 O2 Del Method Room Air 10/20/23 08:30 Progress Note: Objective Labs Labs: Short CBC 10/20/23 Range/Units 04:40 WBC 5.0 (4.0-11.0) 10^3/uL Hgb 12.7 L (14.0-18.0) g/dL Hct 39.0 L (42.0-54.0) % Plt Count 208 (150-450) 10^3/uL BMP 10/20/23 04:40 Sodium 142 Potassium 4.1 Chloride 108 H Carbon Dioxide 26.5 BUN 16.0 Creatinine 1.24 Glucose 82 Calcium 8.8 Liver Function 10/20/23 Range/Units 04:40 Total Bilirubin 0.3 (0.2-1.0) mg/dL AST 29 (15-37) U/L ALT 44 (16-63) U/L Alkaline Phosphatase 52 (46-116) U/L Albumin 2.7 L (3.4-5.0) g/dL Progress Note: A&P Assessment and Plan (1) Cellulitis of right ankle: Onset Date: 10/16/23 (2) Abscess of ankle: (3) Arthritis of right ankle: (4) High cholesterol: (5) Hypertension: Qualifiers: Hypertension type: primary hypertension Qualified Code(s): I10 - Essential (primary) hypertension Plan Patient seen and evaluated this morning and reviewed planned with Dr. Yost Plan for repeat surgery tomorrow Cultures growing pansensitive staph (patient will likely be discharged home on oral antibiotics) Nonweightbearing right ankle Maintain VAC at current settings Nothing by mouth after midnight Will follow
--- NOTE | 2023-10-20 13:31 | CM.NOTE ---
Rounds made with Dr. Yost, no change in pt's condition and he verbalizes pain control.
--- NOTE | 2023-10-20 16:38 | PM.PN ---
Progress Note: Subjective Subjective Interval history: 10/20/23 1015 Pt resting comfortably in bed. He reports continued ankle pain and headache. Intraop wound cultures growing perrin sensitive staph. Remains afebrile and without leukocytosis. Repeat I&D tomorrow, 10/21/23. Exam Constitutional Vital Signs, click to edit/add: Last Vital Signs Temp 97.8 F 10/20/23 13:54 Pulse 69 10/20/23 16:00 Resp 16 10/20/23 13:54 BP 119/65 10/20/23 13:54 Pulse Ox 92 L 10/20/23 13:54 O2 Del Method Room Air 10/20/23 13:54 Progress Note: Objective Labs Labs: Short CBC 10/20/23 Range/Units 04:40 WBC 5.0 (4.0-11.0) 10^3/uL Hgb 12.7 L (14.0-18.0) g/dL Hct 39.0 L (42.0-54.0) % Plt Count 208 (150-450) 10^3/uL BMP 10/20/23 04:40 Sodium 142 Potassium 4.1 Chloride 108 H Carbon Dioxide 26.5 BUN 16.0 Creatinine 1.24 Glucose 82 Calcium 8.8 Liver Function 10/20/23 Range/Units 04:40 Total Bilirubin 0.3 (0.2-1.0) mg/dL AST 29 (15-37) U/L ALT 44 (16-63) U/L Alkaline Phosphatase 52 (46-116) U/L Albumin 2.7 L (3.4-5.0) g/dL Progress Note: A&P Assessment and Plan (1) Cellulitis of right ankle: Onset Date: 10/16/23 (2) Abscess of ankle: (3) Arthritis of right ankle: (4) High cholesterol: (5) Hypertension: Qualifiers: Hypertension type: primary hypertension Qualified Code(s): I10 - Essential (primary) hypertension
[2023-10-20] MEDS: ENOXAPARIN SODIUM 40 MG/0.4 ML SYRINGE SUBQ (20:43)
[2023-10-20] MEDS: DIPHENHYDRAMINE HCL 25 MG CAPSULE 50 MG PO (20:44)
[2023-10-21] VITALS (62 sets, daily range): BP systolic 110–175; BP diastolic 68–100; PULSE 54–100; RESP 3–22; TEMP 36.6–37.1; O2SAT 87–96
--- NOTE | 2023-10-21 | FL_ITS ---
[address] [address] Patient Name: GURVINDER CHAUDHRY MRN: [id number] date: 1965 Sex: M Assigned Patient Location: [place] Current Patient Location: [place] Accession/Order Number: [id number] Exam Date: 10/21/2023 10:39 Report Date: 10/22/2023 09:37 At the request of: ROS CM Procedure: FL fluoroscopy <1hr NON-READ EXAM: FL fluoroscopy <1hr NON-READ HISTORY: TECHNIQUE: FINDINGS: Please see Operative Report. Electronically authenticated by: RADIOLOGIST NO Date: 10/22/2023 09:37
[2023-10-21 05:33] LABS: Basophils Absolute Auto 0.1 10^3/uL (0.0-0.1); Basophils Percent Auto 1.5 % (0.2-2.0); Eosinophils Absolute Auto 0.2 10^3/uL (0.0-0.7); Eosinophils Percent Auto 4.9 % (0.9-7.0); Hematocrit 37.8 % (42.0-54.0); Hemoglobin 12.1 g/dL (14.0-18.0); Immature Granulocytes Abs Auto 0.11 10^3/uL (0.00-0.03); Immature Granulocytes Pct Auto 2.7 % (0.0-0.5); Lymphocytes Absolute Auto 1.4 10^3/uL (1.2-3.8); Lymphocytes Percent Auto 34.5 % (20.5-60.0); Mean Corpuscular Volume 90.6 fL (80.0-94.0); Mean Platelet Volume 9.6 fL (9.5-13.5); Monocytes Absolute Auto 0.5 10^3/uL (0.3-0.8); Monocytes Percent Auto 11.1 % (1.7-12.0); Neutrophils Absolute Auto 1.8 10^3/uL (1.4-6.5); Neutrophils Percent Auto 45.3 % (43.0-75.0); Platelet Count 222 10^3/uL (150-450); Red Blood Count 4.17 10^6/uL (4.70-6.10); Red Cell Distribution Width 14.1 % (11.0-15.0); White Blood Count 4.1 10^3/uL (4.0-11.0)
[2023-10-21] MEDS: OXYCODONE HCL/ACETAMINOPHEN 5MG/325MG 2 TAB PO ×2 (05:44→14:29)
[2023-10-21 06:04] LABS: Alanine Aminotransferase 42 U/L (16-63); Albumin Globulin Ratio 0.7; Albumin Level 2.5 g/dL (3.4-5.0); Alkaline Phosphatase 52 U/L (46-116); Anion Gap 9.7; Aspartate Amino Transferase 18 U/L (15-37); Bilirubin Total 0.2 mg/dL (0.2-1.0); Calcium 8.7 mg/dL (8.5-10.1); Chloride 107 mmol/L (98-107); Estimated GFR (African America >60 (>=60); Estimated GFR (Non-African Ame >60 (>=60); Globulin 3.8 g/dL; Glucose 81 mg/dL (74-106); Potassium 3.7 mmol/L (3.5-5.1); Sodium 144 mmol/L (136-145); Total Protein 6.3 g/dL (6.4-8.2)
[2023-10-21] MEDS: VANCOMYCIN HCL 1,500 MG in 0.9 % SODIUM CHLORIDE 500 ML 250 MG IV (06:11)
[2023-10-21 06:12] LABS: Vancomycin Trough 21.7 ug/mL (5.0-20.0)
[2023-10-21] MEDS: PIPERACILLIN SODIUM/TAZOBACTAM 3.375 GM in 0.9 % SODIUM CHLORIDE 50 ML IV ×3 (07:51→23:37)
[2023-10-21] MEDS: 0.9 % SODIUM CHLORIDE 250 ML 10 ML IV (07:51)
[2023-10-21] MEDS: METOPROLOL SUCCINATE 50 MG TAB.ER.24H PO (08:00)
[2023-10-21] MEDS: LACTATED RINGER'S SOLUTION 1,000 ML 50 ML IV (08:35)
--- NOTE | 2023-10-21 09:45 | P.ORON_ITS ---
Brief Operative Note Date of procedure: 10/21/23 Pre-op diagnosis: right ankle abscess/cellulitis with surgical s/p total talus replacement Post-op diagnosis: same as pre-op Procedure: PROCEDURES PERFORMED: incision and drainage right ankle infection with delayed primary closure of surgical wound, application of short leg splint INTRAOPERATIVE FINDINGS: Preoperative wound measurements: 9 x 3 x 1 cm prior to debridement wound had mild fibrosis but no necrosis and no pus or анна signs of infection. Total talus implant stable and surrounding bone and cartilage appeared within normal limits. Significant swelling made closure difficult. PROCEDURE IN DETAIL: Patient was identified in pre op and consent was reviewed. Correct side and site were identified and marked. Pre-op antibiotics were started. Patient was brought to OR suite and place on table in a supine position. General anesthesia was administered. Tourniquet applied. Operative extremity was prepped and draped in usual sterile fashion. Formal time-out was performed and the foot/ankle were elevated for several minutes and the tourniquet was inflated. 20 mL of one percent lidocaine plain were injected as a field block. The incision was debrided with scalpel and curettes then further dissection was utilized both sharp and blunt removing any questionable tissue. tissue from the ankle capsule was obtained for specimen after irrigating with 3 L of normal saline on pulse lavage. The ankle and implant were stressed in all planes and was notably stable under fluoroscopy as well as observance on the field. Irrespt was used to further cleanse the joint and wound and was used according to the corporate paralegal's directions for several applications. the tourniquet was deflated with a prompt hyperemic response in all tissue bled appropriately. Then vancomycin powder was placed into the wound. The wound was then reapproximated using 2-0 nylon suture in a palm and sole technique. Then 30 and 4-0 suture was used to close skin using vertical mattress technique. The 2-0 nylon suture was then removed and there was normal capillary refill to the skin edges. However due to the significant amount of swelling and prior infection and incisional wound VAC was applied and suction was obtained. VAC was set at 125 mm Hg continous. a multilayer compression wrap was then placed from the forefoot to the popliteal fossa using multiple layers of cast padding followed by a layer Lex wraps then an additional layer of cast padding. A plaster posterior splint was then applied which was held in place by Lex wraps. Capillary refill time to all digits was evaluated and had appropriate response. Patient tolerated the procedure and anesthesia well transferred to the recovery room with vital signs stable and brisk capillary refill to the toes. POSTOPERATIVE PLAN: transfer to medical surgical unit under hospitalist care Nonweightbearing right ankle Continue broad-spectrum antibiotics but will be discharged home on oral antibiotics Ice and elevation Anesthesia: General-LMA Surgeon: Kyler Caldera Estimated blood loss (mL): 25 Tourniquet time (min): 14 Pathology: other (tissue right ankle) Condition: stable Disposition: floor
[2023-10-21] MEDS: LIDOCAINE HCL 1% 100 MG/10 ML MDV 20 ML INJ (10:09)
[2023-10-21] MEDS: BUPIVACAINE HCL 0.5% PF 50 MG/10 ML VIAL INJ (10:41)
[2023-10-21] MEDS: VANCOMYCIN HCL 500 MG VIAL 1000 MG TOPICAL (10:47)
[2023-10-21] MEDS: HYDROMORPHONE HCL 0.5 MG/0.5 ML SYRINGE IV ×2 (11:40→11:47)
--- NOTE | 2023-10-21 11:40 | CM.NOTE ---
Rounds made with Dr. Yost pt in OR at this time.
[2023-10-21] MEDS: BUTALB/ACETAMINOPHEN/CAFFEINE 50-325-40MG TABLET 2 TAB PO (12:04)
[2023-10-21] MEDS: ALLOPURINOL 100 MG TABLET PO (14:28)
[2023-10-21] MEDS: HYDROCHLOROTHIAZIDE 25 MG TABLET PO (14:28)
[2023-10-21] MEDS: LISINOPRIL 20 MG TABLET PO (14:28)
[2023-10-21] MEDS: ATORVASTATIN CALCIUM 20 MG TABLET PO (14:29)
--- NOTE | 2023-10-21 16:08 | P.PN_ITS ---
<Statement entered by Sadaf Yost, - 10/21/23 16:58> This documentation has been reviewed and approved. I have also seen patient and agree with the above assessment and plan. Progress Note: Subjective Subjective Interval history: 10/21/23 1320 Pt resting comfortably in bed. He recently returned from PACU after repeat I&D in the OR. Dr Caldera elected not to remove and replace the artificial talus. Wound vac remains in place as the wound could not be fully closed d/t swelling. IVPB Vancomycin dc'd today as wound cultures are perrin-sensitive. IVPB Zosyn will be continued until discharge. The pt remains afebrile, without leukocytosis. His pain is well controlled at this time. Discharge likely in 24- [address] Caldera for final d/c plan. Exam Constitutional Vital Signs, click to edit/add: Last Vital Signs Temp 97.9 F 10/21/23 14:36 Pulse 90 10/21/23 15:21 Resp 16 10/21/23 15:21 BP 152/86 H 10/21/23 14:36 Pulse Ox 93 L 10/21/23 14:36 O2 Del Method Room Air 10/21/23 14:36 Common normals: no apparent distress, oriented x3 and alert Orientation/consciousness: Yes awake [facility] Common normals: normocephalic, head/scalp atraumatic and hearing grossly normal bilaterally Eye Common normals: PERRL, EOMs intact bilaterally, conjunctivae normal and no scleral icterus General eye: normal appearance of both eyes Chest Common normals: inspection of chest normal Chest: symmetrical chest wall rise Respiratory Common normals: normal respiratory effort, no use of accessory muscles and clear to auscultation bilaterally Effort & inspection: able to speak in complete sentences Cardio Common normals: regular rate, regular rhythm, S1 normal heart sound, S2 normal heart sound, no murmurs and peripheral pulses 2+ throughout GI Common normals: Normal to inspection, nondistended, normoactive bowel sounds present, soft to palpation, non-tender and no hepatosplenomegaly Bladder/kidney exam: bladder normal to palpation Extremity Common normals: normal to inspection and no calf tenderness General: no clubbing and no cyanosis Right lower extremity: ankle joint (Post op splint in place. Adequate CMS to toes) and foot and digits (post op swelling) Neuro Common normals: oriented x3, moves all extremities, no focal motor deficits and no sensory deficits noted Psych Common normals: mental status grossly normal Progress Note: Objective Labs Labs: Short CBC 10/21/23 Range/Units 05:09 WBC 4.1 (4.0-11.0) 10^3/uL Hgb 12.1 L (14.0-18.0) g/dL Hct 37.8 L (42.0-54.0) % Plt Count 222 (150-450) 10^3/uL BMP 10/21/23 05:09 Sodium 144 Potassium 3.7 Chloride 107 Carbon Dioxide 31.0 BUN 18.0 Creatinine 1.20 Glucose 81 Calcium 8.7 Liver Function 10/21/23 Range/Units 05:09 Total Bilirubin 0.2 (0.2-1.0) mg/dL AST 18 (15-37) U/L ALT 42 (16-63) U/L Alkaline Phosphatase 52 (46-116) U/L Albumin 2.5 L (3.4-5.0) g/dL Progress Note: A&P Assessment and Plan (1) Cellulitis of right ankle: Onset Date: 10/16/23 Assessment and Plan: ACUTE * Cellulitis of the cindy-incisional area following R Talectomy/Talus replacement per Dr Caldera on 09/10/23 * Pt is NWB to the affected extremity since 09/10/23 * No leukocytosis * Pt has been afebrile > 72 hrs * Continue IVPB Zosyn for broad gram -/+ coverage * D/c double gram pos coverage with IVPB Vanco * Daily CBC, CMP (2) Abscess of ankle: Assessment and Plan: ACUTE * At previous talectomy site * s/p OR I&D per Dr Caldera on 10/18/23 and repeat I&D performed today * Wound vac in place w/ serosanguinous [place] * Wound cultures obtained in OR * Wound growing perrin-sensitive staph * Likely d/c on oral ABX per Dr Caldera recommendations * Continue IVPB Zosyn for now (3) Arthritis of right ankle: Assessment and Plan: CHRONIC * s/p R Talectomy/Talus replacement per Dr Caldera on 09/10/23 (4) High cholesterol: Assessment and Plan: CHRONIC * Continue home statin (5) Hypertension: Assessment and Plan: CHRONIC * Continue home ACEi, HCTZ, Toprol XL Qualifiers: Hypertension type: primary hypertension Qualified Code(s): I10 - Essential (primary) hypertension (6) Migraine: Assessment and Plan: CHRONIC * Continue home Fioricet PRN
[2023-10-21] MEDS: OXYCODONE HCL 5 MG TABLET 15 MG PO ×2 (20:03→23:46)
[2023-10-21] MEDS: ENOXAPARIN SODIUM 40 MG/0.4 ML SYRINGE SUBQ (20:03)
[2023-10-21] MEDS: ACETAMINOPHEN 500 MG TABLET 1000 MG PO (20:03)
[2023-10-21] MEDS: PREGABALIN 50 MG CAPSULE PO (20:04)
[2023-10-22] VITALS (14 sets, daily range): BP systolic 117–151; BP diastolic 72–88; PULSE 62–83; RESP 10–18; TEMP 36.4; O2SAT 91–94
[2023-10-22] MEDS: HYDROMORPHONE HCL 0.5 MG/0.5 ML SYRINGE IV (01:40)
[2023-10-22] MEDS: OXYCODONE HCL 5 MG TABLET 15 MG PO (03:46)
[2023-10-22] MEDS: ACETAMINOPHEN 500 MG TABLET 1000 MG PO ×2 (03:46→13:59)
[2023-10-22 05:22] LABS: Basophils Percent Auto 0.6 % (0.2-2.0); Eosinophils Percent Auto 0.9 % (0.9-7.0); Hematocrit 34.7 % (42.0-54.0); Hemoglobin 11.1 g/dL (14.0-18.0); Immature Granulocytes Abs Auto 0.09 10^3/uL (0.00-0.03); Immature Granulocytes Pct Auto 1.9 % (0.0-0.5); Lymphocytes Absolute Auto 1.4 10^3/uL (1.2-3.8); Lymphocytes Percent Auto 30.7 % (20.5-60.0); Mean Corpuscular Hemoglobin 28.9 pg (25.9-34.0); Mean Corpuscular Volume 90.4 fL (80.0-94.0); Monocytes Absolute Auto 0.4 10^3/uL (0.3-0.8); Monocytes Percent Auto 8.2 % (1.7-12.0); Neutrophils Absolute Auto 2.7 10^3/uL (1.4-6.5); Neutrophils Percent Auto 57.7 % (43.0-75.0); Platelet Count 235 10^3/uL (150-450); Red Blood Count 3.84 10^6/uL (4.70-6.10); Red Cell Distribution Width 13.9 % (11.0-15.0); White Blood Count 4.6 10^3/uL (4.0-11.0)
[2023-10-22 05:40] LABS: Alanine Aminotransferase 80 U/L (16-63); Albumin Globulin Ratio 0.7; Albumin Level 2.6 g/dL (3.4-5.0); Alkaline Phosphatase 57 U/L (46-116); Anion Gap 10.6; Aspartate Amino Transferase 45 U/L (15-37); BUN Creatinine Ratio 14.3; Bilirubin Total 0.3 mg/dL (0.2-1.0); Calcium 8.7 mg/dL (8.5-10.1); Carbon Dioxide 29.1 mmol/L (21.0-32.0); Chloride 106 mmol/L (98-107); Estimated GFR (African America >60 (>=60); Estimated GFR (Non-African Ame >60 (>=60); Globulin 3.7 g/dL; Glucose 93 mg/dL (74-106); Potassium 3.7 mmol/L (3.5-5.1); Sodium 142 mmol/L (136-145); Total Protein 6.3 g/dL (6.4-8.2)
[2023-10-22] MEDS: HYDROCHLOROTHIAZIDE 25 MG TABLET PO (08:05)
[2023-10-22] MEDS: PIPERACILLIN SODIUM/TAZOBACTAM 3.375 GM in 0.9 % SODIUM CHLORIDE 50 ML IV (08:05)
[2023-10-22] MEDS: ALLOPURINOL 100 MG TABLET PO (08:09)
[2023-10-22] MEDS: METOPROLOL SUCCINATE 50 MG TAB.ER.24H PO (08:09)
[2023-10-22] MEDS: ATORVASTATIN CALCIUM 20 MG TABLET PO (08:09)
[2023-10-22] MEDS: LISINOPRIL 20 MG TABLET PO (08:09)
[2023-10-22] MEDS: PREGABALIN 50 MG CAPSULE PO (08:20)
[2023-10-22] MEDS: OXYCODONE HCL 5 MG TABLET 10 MG PO (08:20)
--- NOTE | 2023-10-22 09:56 | P.PN_ITS ---
<Statement entered by Sadaf Yost DO - 10/22/23 14:31> This documentation has been reviewed and approved. I have also seen and examined patient and agree with the above assessment and plan and plan for discharge Progress Note: Subjective Subjective Interval history: 10/22/23 0940 Pt resting comfortably in a bedside chair. He notes that the Toradol prescribed post op by Dr Caldera has discontinued as all ordered doses were given. He notes the best pain relief from Toradol as he thinks inflammation is driving his pain. PRN Ibuprofen ordered to be alternated with Oxycodone for improved pain management. Continue IVPB Zosyn for now pending Dr Caldera's plan after he rounds later today. The pt denies any other acute complaints. ADDENDUM 1145 DISCHARGE: Dr Caldera has cleared the pt for discharge. He has already sent antibiotic and pain control prescriptions to the pt's pharmacy. He is to remain NWB of the affected extremity and follow up with Dr Caldera in the office next week as scheduled. The wound vac should remain in place until removed by Dr Caldera Summary: The pt was admitted with a post op ankle cellulitis and abscess (s/p talectomy/replacement 09/10/[address] Caldera). He was put on broad spectrum IVPB abx with Vanco and Zosyn. I&Ds was performed by Dr Caldera on 10/18/23 and 10/21/23 in the OR with wound cultures obtained and washout performed. A wound vac was placed post op on 10/18/23 and is to remain in place after discharge as the wound was not able to be completely closed in surgery d/t swelling. The pt's pain has been adequately controlled with alternating NSAIDS and narcotics. Wound cultures grew out perrin-sensitive Staphylococcus pseudintermed. Outpatient discharge antibiotics deferred to Dr Caldera. Exam Constitutional Vital Signs, click to edit/add: Last Vital Signs Temp 97.6 F 10/22/23 04:43 Pulse 66 10/22/23 08:12 Resp 14 10/22/23 08:00 BP 151/84 H 10/22/23 08:09 Pulse Ox 92 L 10/22/23 04:43 O2 Del Method Room Air 10/22/23 04:43 Common normals: no apparent distress, oriented x3 and alert Orientation/consciousness: Yes awake HENMT Common normals: normocephalic, head/scalp atraumatic and hearing grossly normal bilaterally Head and scalp: normocephalic and atraumatic Eye Common normals: PERRL, EOMs intact bilaterally, conjunctivae normal and no scleral icterus General eye: normal appearance of both eyes Conjunctiva: conjunctiva(e) normal Pupil: PERRL Chest Common normals: inspection of chest normal Chest: symmetrical chest wall rise Respiratory Common normals: normal respiratory effort, no use of accessory muscles and clear to auscultation bilaterally Effort & inspection: able to speak in complete sentences Auscultation: clear to auscultation bilaterally Cardio Common normals: regular rate, regular rhythm, S1 normal heart sound, S2 normal heart sound and peripheral pulses 2+ throughout Rate: regular rate Rhythm: regular rhythm Heart sounds: S1 normal and S2 normal Peripheral pulses: pulses 2+ throughout GI Common normals: Normal to inspection, nondistended, normoactive bowel sounds present, soft to palpation, non-tender and no hepatosplenomegaly Bladder/kidney exam: bladder normal to palpation Extremity Common normals: normal to inspection and no calf tenderness General: no clubbing and no cyanosis Right lower extremity: ankle joint (Post op splint in place. Adequate CMS to toes) and foot and digits (post op swelling) Neuro Common normals: CN's II-XII intact bilaterally, moves all extremities, no focal motor deficits and no sensory deficits noted Psych Common normals: mental status grossly normal Progress Note: Objective Labs Labs: Short CBC 10/22/23 Range/Units 04:45 WBC 4.6 (4.0-11.0) 10^3/uL Hgb 11.1 L (14.0-18.0) g/dL Hct 34.7 L (42.0-54.0) % Plt Count 235 (150-450) 10^3/uL BMP 10/22/23 04:45 Sodium 142 Potassium 3.7 Chloride 106 Carbon Dioxide 29.1 BUN 16.0 Creatinine 1.12 Glucose 93 Calcium 8.7 Liver Function 10/22/23 Range/Units 04:45 Total Bilirubin 0.3 (0.2-1.0) mg/dL AST 45 H (15-37) U/L ALT 80 H (16-63) U/L Alkaline Phosphatase 57 (46-116) U/L Albumin 2.6 L (3.4-5.0) g/dL Progress Note: A&P Assessment and Plan (1) Cellulitis of right ankle: Onset Date: 10/16/23 (2) Abscess of ankle: (3) Arthritis of right ankle: (4) High cholesterol: (5) Hypertension: Qualifiers: Hypertension type: primary hypertension Qualified Code(s): I10 - E ssential (primary) hypertension (6) Migraine:
[2023-10-22] MEDS: IBUPROFEN 400 MG TABLET 800 MG PO (10:17)
[2023-10-22] MEDS: DOCUSATE SODIUM 100 MG CAPSULE 200 MG PO (10:17)
--- NOTE | 2023-10-22 11:44 | CM.NOTE ---
Rounds made with Dr. Yost. Mr. Blackburn complaining of pain and swelling. Difficult to sleep at night. Motrin to be added to help with pain and swelling. Amirah Bere verbalizes understanding.
--- NOTE | 2023-10-22 11:50 | PM.PN ---
Progress Note: Subjective Subjective Interval history: 10/21/23 1320 patient sitting in a recliner and is happy and smiling although relates to continued pain which he states is much improved with ibuprofen. Denies calf pain, chest pain and shortness of breath. Appetite is normal Exam Narrative Exam Narrative: splint is clean dry and intact. Wound VAC holding suction at 125 mmHg continuous with scant bloody output. Able to wiggle toes and capillary refill is brisk Constitutional Vital Signs, click to edit/add: Last Vital Signs Temp 97.6 F 10/22/23 04:43 Pulse 77 10/22/23 10:06 Resp 14 10/22/23 08:00 BP 151/84 H 10/22/23 08:09 Pulse Ox 92 L 10/22/23 04:43 O2 Del Method Room Air 10/22/23 04:43 Progress Note: Objective Labs Labs: Short CBC 10/22/23 Range/Units 04:45 WBC 4.6 (4.0-11.0) 10^3/uL Hgb 11.1 L (14.0-18.0) g/dL Hct 34.7 L (42.0-54.0) % Plt Count 235 (150-450) 10^3/uL BMP 10/22/23 04:45 Sodium 142 Potassium 3.7 Chloride 106 Carbon Dioxide 29.1 BUN 16.0 Creatinine 1.12 Glucose 93 Calcium 8.7 Liver Function 10/22/23 Range/Units 04:45 Total Bilirubin 0.3 (0.2-1.0) mg/dL AST 45 H (15-37) U/L ALT 80 H (16-63) U/L Alkaline Phosphatase 57 (46-116) U/L Albumin 2.6 L (3.4-5.0) g/dL Progress Note: A&P Assessment and Plan (1) Cellulitis of right ankle: Onset Date: 10/16/23 (2) Abscess of ankle: Assessment and Plan: patient currently on Zosyn and Augmentin/Bactrim was called into his pharmacy for two weeks (3) Arthritis of right ankle: (4) High cholesterol: (5) Hypertension: Qualifiers: Hypertension type: primary hypertension Qualified Code(s): I10 - Essential (primary) hypertension (6) Migraine: Plan patient seen and evaluated. Patient happy that I said he is okay to go home today. His home wound VAC is being charged and I reviewed with nursing how to transition from the hospital unit to the home unit. Paper prescription for Percocet 7.5/325 one by mouth every 4 hours (#30 dispensed) was placed in chart Then additional prescriptions were called into his pharmacy which included: Augmentin eight seventy-five twice a day & Bactrim DS twice a day for two weeks; as well as [id number] qd x30 days Patient will be nonweightbearing until incision is healed and will follow-up sometime next week Reviewed plan with Anita Rico NP who agreed with d/c home
--- NOTE | 2023-10-22 14:48 | SWNOTE1 ---
SW checked back in with pt and he voiced he has all he needs at home and has no discharge needs.
--- NOTE | 2023-10-26 12:12 | CM.DCFOLLOWU ---
Person spoke with: Sanjeev How are you feeling? Very good How is your pain? Still with some pain-using pain meds as needed. Did you understand your discharge instructions? Yes Do you have any questions about your discharge instructions? No Were you given any prescriptions at discharge? yes Were you able to get your prescriptions filled? yes Do you understand how to take your medications as ordered? I do Do you have any questions about your follow up appointment and do you plan to keep your follow up appointment? with Dr. Caldera. Is there anything else that you would like to discuss? Wants to thank everyone for the great care. Questions/Comments/Concerns/Other:
== END 2023-10-22 15:39 | disposition home or self-care (01) | DRG 857 ==
LOC: ER 09:28 → MS 14:40
PROVIDERS: Podiatrist Foot & Ankle Surgery; Admitting Provider Family Medicine; Emergency Provider Emergency Medicine; PCP Family Medicine; Visit Provider Nurse Practitioner
PROC: 0S9 Lower Joints, Drainage (ICD-10-PCS; principal; 2023-10-18 08:30)
PROC: 0SBF0ZZ Excision of Right Ankle Joint, Open Approach (ICD-10-PCS; principal; 2023-10-21 09:00)
DX: T81.49XA Infection following a procedure, other surgical site, initial encounter (principal); L03.115 Cellulitis of right lower limb; B95.7 Other staphylococcus as the cause of diseases classified elsewhere; M19.071 Primary osteoarthritis, right ankle and foot; E78.00 Pure hypercholesterolemia, unspecified; I10 Essential (primary) hypertension; G43.909 Migraine, unspecified, not intractable, without status migrainosus; Z79.82 Long term (current) use of aspirin; Z79.899 Other long term (current) drug therapy; Z88.1 Allergy status to other antibiotic agents; Z87.442 Personal history of urinary calculi; Z85.46 Personal history of malignant neoplasm of prostate; Z96.661 Presence of right artificial ankle joint; Z98.890 Other specified postprocedural states; Z82.3 Family history of stroke; Z82.49 Family history of ischemic heart disease and other diseases of the circulatory system
CPT/HCPCS: 36415; 73610; 73702; 76000; 80048; 80053; 80202; 82948; 84550; 85025; 85652; 86140; 87040; 87070; 87102; 87116; 87150; 87186; 87205; 87206; 88304; 88305; 94761; 96365; 96366; 96367; 96368; 96372; 96375; 96376; 97605; 99285; 99999; A9272; J0665; J1100; J1170; J1650; J1885; J2250; J2405; J2543; J2704; J3010; J3370; Q0162; Q9967

== ENCOUNTER 2023-11-11 15:56 | Outpatient (OUT) | payer OTHER, SELFPAY ==
--- NOTE | 2023-11-11 | XR_ITS ---
The [address] [address] Patient Name: GURVINDER CHAUDHRY MRN: [id number] date: 1965 Sex: M Assigned Patient Location: Current Patient Location: Accession/Order Number: [id number] Exam Date: 11/11/2023 15:10 Report Date: 11/11/2023 16:54 At the request of: JAIR CARPENTER Procedure: XR ankle RT min 3V EXAM: XR ankle RT min 3V HISTORY: RIGHT ANKLE PAIN COMPARISON: 10/16/2023 and earlier TECHNIQUE: 3 views, AP lateral oblique x-ray right ankle FINDINGS: No fracture or dislocation. Talus prosthesis again noted unchanged. Medial and lateral joint space narrowing stable.. Small calcific densities smooth margins adjacent to medial and lateral malleolar unchanged. Altered mineralization of distal fibula is chronic and unchanged. No erosive or destructive process. Stable soft tissues. XR/XR ankle RT min 3V IMPRESSION: Stable appearance without fracture or dislocation. Chronic findings including talus prosthesis unchanged Electronically authenticated by: LEA KATHLEEN Date: 11/11/2023 16:54
--- OUTSIDE RECORDS SUMMARY | 2023-11-11 16:04 | XMS_ITS | CCD ---
Author Name Unknown Address [address] [place] [address] Organization [facility] Care Team Providers Care [employer] Name Role Phone DEV CH Unavailable Unavailable [...] Translations: [Keflex] Drug Allergy 09-20-2009 AOF [facility] Repository Problems Active Problems Problem Classification [...] Coding Summaryon 09-16-2023 Coding Summary HTMLBase 64 ChrxpofuVVq5gMt+PGhlYWQ+ BI9CNTSxE79gvZUaxF4uH2UQ TElOSywgQVBQTElOSyIgbmFt TR5dsKBuHATt IC8+SZ8oXHJvHxwsmAZkg1Y6 xYD9R08bwy7qUEojmOW2NIAd WyMdoyvpv6jztRo8LOhbRiof OyBt GZJclP50MSR7zC68Eg15iXMp kNQsc3jhyCk8MfKiJJYvFJT0 kBcyQDora0CoTKVsG66kdPAz c2U6 UYDmkNuwpHBeAbVloDQ6kI2q SSmftpauh9bjauzfIvd7sd21 oMTnl8W7bUK4E2BonwB6CDVa bGQg YzuzdQFFvB5kqahae3pmaygq MdYtEVJzGIa1MKu0PKEspWod SmExLR44HKO1ILUbhrCzM5Zr LWFs yEsrVjP4z4V8Xj7GF3KSHywf L2VGENOOUFmqlYN+QA50bk23 U5TmWftuYkn2NBQkWKS0nPP4 aD0n SPKqNXalz7X1jUV1P3LxoaCf at8zh7frYXFkJFznJ80gyRXu j7F6IRAeyHY8DGQazFcoNhJk aG93 Oyc+YSBpoDfqt9VaWplsq4qc t0gksFw7EcmnJULykvYjrEsv BQV9u0EmPh2lOXSwqRT6dNU9 aD0i MzEfZcE7WMtpQ685PzYctABj OtepU17aW5FwhJI+PHRyPjx0 UDIsdPhnTF7jM3CiMLYsghfe bGVm pCyzZD7gKCDdmchsCOTuiT5k RWKwS7o1JpJdLkW0IHthO4Ry FLRuublrUo71nK8lWsPrBxD6 MGlu R9FheoB5LUCbiNYdJLuoFKU4 P97rk7Y6UHTpMXKnVUA1dNJ1 lG7gtQgfxufikQVhyFogljNf dGlj YRtuJJucN881HDZzqVejKaNx ZGluZyBEYXRlOiAgMTIvMjgv MjAyMzwvdGQ+HJOrUYG9xJnj PSAn pFQnAVpvAj0drIlwzWpeFQ8e WCYtpdwbWCKfrJ9qQOXgxNUp qMbpFV7qWFWyustvk562AwEb MHB0 JHMmqMIqW9NhrN9rMtKzZBIs JNInJ3EtgPBlNNnsS799SKmb FnY6VYBereFdO0XmZDZwbGki OiB0 j0F7Wp9Ea4BykxgoK6SriJAb HuYrJqeqBTr4O2TuEbaasJB+ NL15HVGpKL94UFr2XVF7zMnb PSdi RCWyS4AkpZ8nMkAyGYWcBREs Oyc+PHRhYmxlIHdpZHRoPScx UHTlPfKgyIgsLI7nEt7aWIBb LWNv gNtrfIBzZzUxw2xjHEOgESev MX3grCfdU6TgpYX3QHSeb1a9 Jq87Y17uN4BxqGS+PGNvbCB3 aWR0 yV3vVdOjZyJ1OSogF323FzMn hDAyXrlqn4vcy5rqiEi7RsU9 CXFkgeRghLufVPB0m0ZyVz34 Y29s IHdpZHRoPSIxNSUiIHZhbGln ku3xtE5yLn7+ZPSxtYJ8uAZ5 mV1nFjAiAvC3VRcjB677BcBx cCIv Ocgbq1zaf7wvmYj4SyYlMUBw gqHhhLsfFMW5c0UlSr03H0Go wVrmy4LwQth4yp66lQKoj1Y0 bGU9 A5HqQKSwzashsDJayLfuRU5h UBKqhddrQCZiqT6hLNTvQ4r7 EiMxLxT9CCzbD4WcswO2JFRx bGQg JZZtnRHQkD4omngml2klgktk QdAuHAEwNYu4GBw7SBQhwLaa FrZlRZW1IcK6KUI4yXFzlO8o bGln mwapvL6sKbu+ZHA4vTRgfKQE BI4eRgcicUP+DWEjCXU7oTvn WEjyLMTesT5rUGXiF3g4ChNx LjA1 KPoqP5DdtyI1YSPvqXLxQMEj bHIVsY9kekeqr4ajbujoYoCt QHDuPWx3QVo6NXPbzFfbQnFx ZWZ0 VwA6EUZ6qRYnsF9tmNwtrdxc cJ0iAcq+YcpyoNtkCRI3LTn0 N2LwOia0UIMbyZhxUC5enZBy ZGlu Ry8bcCvaiLqcSK7lMANlooek s315XeZrh9tkODQbsIHkBKyw XTO5M21qr0W7VDTnTYCmJSW6 dGV4 zW2eqSaxctyxnCXpxOozioEm iCqpSFxpZFknB259ZSLqmQkg StJzARm8I6BpQnf6WUKdcRlw ZT0n bFWfRGrpOl3shGmiaYtqTN9n YVEoynqwp465NeTyw0loJREh cOPmHXjtOLX1H43ws3D7RKGx MDAw VEL4hRM4oT8xhPkjqmbjvIMj hBwglkTbuGcpTDomITruH582 GLKrqMnqSlIbgAh1G5UtCaf5 ZCBz kNzxNE1ghQOgLGptBy8kxXzp dNfdVB3lMCPsoexig862IjRr m8buARWvbBNoWVrbREK9B66t b3I6 MJDhAHTvKDN6cKR8eF5sdVeg bjogbGVmdDsgdmVydGljYWwt UKucW511RJRnmLuzLeKkiPwj bnQg ZVwtJJh7X2BfWfjzhJK+PC90 VTHfWQ59oRDpbPWej8aqwEm6 RxFqKLGcVRL7gKtrTKfpt6Iq ZXIt E99dtXYnm3X3XUPeoCubnNMl KaIcdJU6pW8pWBkukkean3ke wgopZfteo9hoih19gX69P20w IHdp CRCiEZNqWAClUEYquJqhac7n gE6hGq0+YXFwhJO0cSH4mT9l SXZwFaJ1NYvnZ717QkLkpNXs Pjxj d4red8mfmOp3FnU3LLMladHb xQztDCK4l6ClYi52Q98fAWkj CWWeMTFlIANzNMKzoJljal9a dG9w Ii8+YRZyiBL6aHE7uL3pSnCg EwG6HCwiN223QhVnkXQeZkks Q31yF3GdsCF+ZIWrXbd1SIBl dHls ZU4ztAQeUZyiRl6aIMQ2VuZc KaYwLPnfO4QeTBDvxexkrfav eGR9NKTbZNTkhQ95Wn3tkTrb MTBw zWPMmV9vdgfvs4ujazsmGjAg CKEkZXv7TXw1ILSywXyjZkBj GQO7OaO2USP1zUHmcX8ybIek bjog aD3iS9MkNIAcfiveWr61yY2l BzKuGbL5WAnwHon+RFVSSVZB C0EfQEbERrymMPbZBI05T8Df Pjx0 OBDegOscLY1dmYZtLLdnFq4f jPhruGiuOQ4tOZJyhsurFBRa dO3rHKAspLEgvZmfWW8lGSIc bjtm u132HnNdQSS5EXBkeLJiM5Tn sM6aIdUdBIIhFTXvI4EabGWq IJdzL766BVypXdZ8FEPsdhKg Y2Fs JZTloTnzJrB3c2E9Uw5wSW8a Ms0sIJG6LW05AQ37nCKde4L9 iNU4I8TmGIMzvdxqgvnabTC1 IDAu INTuqR75vIXnTPmkKi3yq0U8 d132EWPwDDGfzA85Um6jxPsi FXZjxYPInO8ewhvuw9ienshz IzAw HAHvMQp7REy6QWKknQonUjJl PBZ8BsS9SVA9nWJuyE6wcPxe vemwjK8rUcs+NTYgWWVhcnM8 L3Rk Rpy9XIIpsDbeUB8xrLOiVRcs Aa5kjOjrpLfmVX1fVBWqxxnk IYMubU1oCWLslIWqpGfcUO1b NTBp ldbul591TrNvSFL1HNAuvFXq H7LorQ1eFqPbKGVfAKPgK4Ju sRSsHWcbQ068JCwpCwJ3DGQj cnRp F5BnAHEbrQnmZkZ8d5A6Jq0P PCvQRP06FI67uZBbh7U2qST2 M9NgHRGnkquzjcxzsCN6LUPx MDUw pO96fLZbJIhnNg3ha9A7i177 KSHfUUKciL91Uz4knGuqLOQg dUSQbH5bwgccg7qbvhglYeTl MDAw QDw0SHd7SANxzHfmHuTaSTB7 XkZ5ATP0eCZteZ7cpQwljxfz dP2oRuq+G4E2eIW9yDUkwFYo biBh IEJlZDwvdGQ+SX15pj78A1Ci DlsqXjd6IFLmDLC7dIK1nI5z NBScXOvby6E9zFL1U6HiqlAf ci1j j5lgMRXcKHafL66jkZIms7N3 OLGowBM7ONJydAsaBkVepU11 Oyc+APPpsVtmd6OdGadqx2te d2lk bZl1MyMoNZQhmvMvpCeqGLA3 u1JlXg12W97wJBynTGPcMVOs DQWzRHQlrIygxu9zjI4gUe2+ PGNv pQE7wKG2uQ7nLkXhHiM7ASwl D501UoHjzCAoDfkfl7qqc1tm bCx1JiGdVTCrbxJueKsxKHZ7 b3Ai Wu33C8GixRtaf8CeGwd7pz33 zNKgb5P3nFS5J0PbOFBswvac cZOqpVjgJB1lSXLdgldwSGDl aW5n XZCtE3n1LhXqWcP7CQbpO1Jq qhQ0KMOmjZFcMJMhcJHWyY7b yrizo7spddlvIdStPFOzCRa9 ZXh0 DVRiuDqzXpCsKRH6EzR6UDE3 zQIczA6cyGwsucbcfI7rRbo+ HNp1b2zwbLYnRC7jkLO9LD46 ZD48 uIKey4P2zIO9O8QcROCfvbjw zfucrXW9FQHtZXNcaL08Og6w zDasMs3mOHOvCKZ2OOSqlGCb O2Nv qD2jDdHnPFGhPTDeO7HmvHNz EOfyA295SRocHoB1IKAbvnHg B2RwPAEtbFkpCkI1q7S9Kh8W SU46 BJ46LI39eRNhb6X2qQG2S6Mp ZHQrclkmenubpWU3JPThXERc wB23Um3jxUkeEv7iCKIzZYL3 IFRp uACfH1IioD4mHpFyQFEhZAJv O5PwzAApYRhvW882QQwdQhI5 YAFyuqKrJ6WiDMFwfUfiIyS3 b3A7 Ro3ZGa91VU04UI42oBKyp5B8 xXA1M5BaXUDjyhlevhonfUB3 CTVeMFUojT79Gy7aoFosZl1g ZCAx ULX5GRRhbZIzK8OtqI4eSqDy WHIjLWWiK9QyfTTdWNibT042 EKiaQzT6QKJxzoTvG8KfOZYl aWdu BlT6s5M6Jq2KJTgyfga4J4Or PjwvdHI+CN41DNKtXJ75vNMf bYBid8vxsPo5HeLiZCGgYAI6 eWxl PSd (more content not included)... [facility] Coding Summaryon 09-15-2023 Coding Summary HTMLBase 64 OeewckzfGJs6jWk+PGhlYWQ+ NG4HZSPpL32lySFwqV9bD4UP TElOSywgQVBQTElOSyIgbmFt NZ2kdFLcDHTy IC8+SP9iAGQwKbypoAJnh6T1 eTB0Y61fni4ePXvcfWH0VDPv SeXrwfmem0jywWa2TTofSzis OyBt WJZgoU50UVA8sF13Lr36wULb mMZsn9xfwXc7QmVlKGPxSZG7 sFvoZUjpj9JvZGUwT45yyXOe c2U6 RRRpoHvewMPbEdVzsXZ0iJ5w YUvvyxwfa3yonwjcZzd4tv90 bTHoo8Z5tYH0C5EsccP8MYZk bGQg AwfqdVRMaC9qizkvy3veydsn OdPvCCTrHLe5YTz2YJTblZjs NaBwGT62EVC3WNCsioNnX7Rg LWFs rYteRwD2s2N4Fw8JG5SCAhpv V6AVZJQTQDybjNI+NH35st22 K6WePioyMxl6MMZoBXF5sXQ4 aD0n LABiZPmqz1M4hTF9I1AsysNj zs5ni6rxLAAnEZdwZ91xtIHa x9R0STWvaPY6VSXlsCmwBqOt aG93 Oyc+DFWvcZydn9PuLzjre2sw u7fkoIv5AzslCJWqvhYfyOto DGA2p9EyGv0eRZFtzFH0yRJ1 aD0i DaNdJkT1PQufB181NaRwuLXl UgzjJ55qU3MilHC+PHRyPjx0 WKLvdGtnHD8cJ6KfJBRjbqnj bGVm pImiJD6rSIYzfkqhLBUuaL6b KKSoP8b7BoPuNrA6PMrhJ3Ni QQShayvlLg78kY3nYaNkBfG8 MGlu C3CnfjQ7NFNaxRTvRNfnQQR0 W30xf8I6DSSmEXZbRWO7tIC1 jM0ffUrulixhdCGovUjjjdAu dGlj JQheMPzxR080PNWocYrbYpNi ZGluZyBEYXRlOiAgMTIvMjcv MjAyMzwvdGQ+LJTpHUM5hJva PSAn sOThPZkuGk6xeVssvWsiYK0w UTRqmwlyVVXpdG7rNZPreJDo bVnyCK1aKUUulayqm655EeRk MHB0 HSLxaFGrH1QpnM2zFgUvPEOr QBXhF4HonPQpVHbwF786OYtx OqL2GREwezNzA5QwVRUzbPsm OiB0 z1N3Ih4Yn1KyyogyL9FkzWDy ZqKtTybaSZj0Y2LkMmsnpXI+ QM02EEOgUR08JSr4RYB7bHpa PSdi KEUoL6FpyP2hKyTqOPMuRIId Oyc+PHRhYmxlIHdpZHRoPScx TICqYlVavKrvRI2xZo5yDQJy LWNv vLahfMWeEjHwz5ieNNNrXXrh VP6mdJwuD5UueBT0UHOka6c7 Xp89O48oR5PudFR+PGNvbCB3 aWR0 kN5mEtWtFkJ2FOeeP035OmFv vQXfOhzdj0brz6mqnXh5NfZ3 GFYwuqEktZjfIJG8t2QbAp47 Y29s IHdpZHRoPSIxNSUiIHZhbGln gx1fmG9tTo8+HDJeaQR9kGC0 qD2lNoKfHuK4KPpaI749ZkFs cCIv Vuahp7nki5gqfGe4CfKzDLEc yjIrzMkpCBQ2m2GhRj41S0Cl nCotg3FbLju0uq99wUYwl9C4 bGU9 A7MeNSHxuahurAKnyMcyIE5c PWXluemjREZcxQ6eQJPxK0s1 ZyWiVmD2ESfeI6OunfQ5QLMh bGQg DKEccPGMkH0uicaxp3amwpfl RcXlTNFcAAp1MZj1OTMgbDnr PbFyXZW8GlH4IJV5lPIdnE5s bGln wzufsN4dVmq+TJG2lXNmcKRF VN6dXlwllHP+CNOiMJT3pIbg EKpkLHTtqF8vHKNxF5q8DcAv LjA1 LNzlJ7IjdjS3JGJsmWHdGWDa oLPRjV2eayfma4iboeroNyNl ZEGnFXx0AIn3OZJtoSpoTmMk ZWZ0 XpO0LXC4fKZsbX6cbEvyefzb uW9pEgk+XkusqQhbZZF1OZu6 H1UgOzn9UGBkxJnrXV8akXNq ZGlu Ng6omWxruAckOM4xHNDlujll m909LhJkh6vmFGXtmTLcSCni PSW4T27tj6B0HUZgPTEoQBH5 dGV4 qR8uoLixmldjsMSqfKbkgtFd jSinGYfuDJssB178EHTwvKzg ZgVpWQd3A4TqCrr6JDLtxVdy ZT0n rAZfVEfzKg7sgYierYavQX4i BMPonshiu444VsAfm1goKSTp pREzFJfiWPX3G46gr9B4XKNp MDAw QWN1gRP5oE1ofTfvwnkgjVRv oMyycaBkiOkpJHkzVTxzK848 GKMivIzuPtVvzIj2I2VyJtj0 ZCBz xTxdXB4ymYPtDKpbOz2ugFor kDhiQN5oAHLgnrrks853VmHf i1nhSCAbnSNgLHriOXB5O98d b3I6 OVAzSVKhKCG8mHM2wI8zvKdo bjogbGVmdDsgdmVydGljYWwt JVutC491XVCcwRbaSiVgrQzg bnQg ADklADw3T6QuZvljrQZ+PC90 ALFtMD80eZJvxYGkx2vtlXp7 GbUqGWJiRAN6aGgjCXxlg5Fq ZXIt N05ouDLgv2O0KOIhlQnakJKr TfQhiYU5jQ2hYQrmvwioy2ux sxwoVkwdv5jcrp16fB52S42s IHdp QUOuWFZuSEWeTJRfaLrfkr2e qF8zZg9+ZSFtkHT0fSS1cW9q KYIeWoG1JVvwC703CkQltTCr Pjxj v5puv7tlvUc4XsD3AAMwrwBs bLoqCKC5a3UrGl24C97nAUbq UNPiXIJmGORoUNVrkHxtuq2g dG9w Ii8+WDGmoGX7rNR2nR2lPjPq IoU5NNknA033SuKiyGGnIatm W58kE9LiyWS+VZNgZtt7IRWv dHls XN2ibSWkLWfgJc3zGRI0EjBd MbFyAHuxD9DwOSAwazrunlhj oGE3NILlZNEwrS72Px3lpDab MTBw bMOVjV3lzemcu7brpqjzLiDl JKOpBNn7KVa4EOBleCvkCmXk CJF6OjS0HYW3pIQlgX0nfLzj bjog uN4wA1DiKLXzeudrGt45fJ0r VlDlDnB2PFnhHzt+RFVSSVZB B6FhOTdZZvtfCStWRP66W6Th Pjx0 PUTcrXxqXK8yvOCkIIllVg4j sZckjMmuMA9mHZOtnacaTBVv iI9qTSWwaNOdrBitIW6yIBBt bjtm f469WaHtYVG2VFVjoAWsC0Aj aE3mHxYqDTWmEWUzO5HayZEc WUztC670VRroMqA9PCQgsiSu Y2Fs BCLlkGrkSgI3y0B6Gh1nNS4e Hy9kSCJ6XD95XG60wMUka8F7 qWY5F9YgCQHebvrmpdeueSX8 IDAu XAIzrS60dOFnBLvaTr2sh4B0 s021OHBvXIVgrD68Mr9umHth TLLidRKDjJ3rjhvyc1fnlvae IzAw MLQbIGi9MBm6HKDjiIcyRrSv TNF8AbI7PBK8lUWvqK0lqFcf fvuuiH5bUua+NTYgWWVhcnM8 L3Rk Qrf8CYIzyDloHQ3hbOUaDVyo Kc0mlAgppWqgDN2gONDfufuv MUXsfI5tHFBxbJHkmBmhXX1e NTBp bjtns281PsEnSCW1PAYqfAMq K9ItvF3dYyPaQKZkEFZnD6Ms kTIjCOagP576HNvcLzK2ZSTu cnRp G7PtTVRmaCrlKhZ7r7S5Qe9E MXmDFZ84KU24dPJze5I1fAT9 Y2MnFHXvolovzdyyjHU1GSCe MDUw bA73sYJiFQomKo5vl0V4z056 NATeONKibM68Yk3udOxlNSVt zVODfU0uowxxq0jzauyfInWv MDAw CPo5SIl0MMHdwXfiNbNgQAU9 UfA0NAE2ePVrhD4ymHchfvlc xU0dJtk+I5R2C5ScCrbucUY+ PC90 XUEbRJ68pLCgcIVmt1zwsZu2 ZxQvNTMoGZO2cCxkRHmjh3Ob PITeZ34yxSGod5E0LYShiIzv cHNl WwUzjBI6wW9yJRkwkhfkh4qp ssnlCbhcj3fdmo06rZ54E23s IHdpZHRoPSIzMCUiIHZhbGln bj0i pL8aLi6+GIXzwIA5cUH1bC3m SoNhYeQ0VSpmW831YnNfhLPx Bjwix2bmm5dcoTq7GgWoAVIi dmFs mKghLXR1h1FjUh06A03oPSzj SMPyIYBkRQZqPYBmoVylia8s aW0mNo3+UO0tc2krcx27rY54 dHI+ ZQLcIJX3gVyeKSmeEQPwkS3i NZuxIjE4TQTqNaKywV09dAOc MPmrSr2wpVxykPrvEJ9eSLTm bjtm s661AlYpq4ffDPZtxVFwBVng VTJ2O26wc6T3FVPfNJUhWFU6 xSB6yF9jmZodybfkqNSdaOmd dmVy hMuhDPluYVdeM009PHPtlMxz JrZabZYvA2zowiYYNP6dVdek dGQ+TXJqKGD5rDcmRLbgSOVe aW5n UQLkE1q6SzHbOfG8XIwxW7Gx hkO6HHDlkQEjPXKcxGVLdG6p ieqpq2xfgbzdHwEqCQYmNZm8 ZXh0 RAFenJktZlMuGZD9AlJ0HXO8 iDRkwT3lnAgxmwghoZ8zQdd+ RklOOjwvdGQ+FVNpQTP1gClf PSdw JAPzqV9mLTLpT4a9ZvXmTuB7 RPkfV7ZgxjC0DCTznUBzWDIj fSXYtU9rsaxlp4ucqumpElCu MDAw KCm3ALg2WRRauTafKwZqZVK1 LpK4ENL2kEBgxD0pkUdrvckn fJ9uIot+TVJOOjwvdGQ+PHRk IHN0 mYfuTXmvQZXneA9rJMKvB8c8 JlYaLhO0SRxjU5NosuE4ECSh mVDtJSRrsTNQoL4ijzmly9bt cjog DpZxQMStALn3YRa7BQGrsHci TkZsAAV2ChP3PMH9cFWqwX7b hEfdbgloiA8aGhp+SSF6ALU4 PC90 ML96F6PxHmgutOXuiKP+PHRh YmxlIHdpZHRoPScxMDAlJyBz cJgxUD0uZa6sLGFmFBZjnMhc cHNl OiB (more content not included)... [facility] Consent Formson 09-06-2023 Consent Forms [id number]#1.00OTG TIFF [facility] Stress Teston 09-06-2023 Stress Test [id number]..[id number]#1.00OTG TIFF [facility] CV Stress ECGon 09-03-2023 CV Stress [...] reported separately. Jaskaran Tejeda MD JOB #: [id number] ul Final Dictated by: Jaskaran Tejeda MD Dictated DT/TM: 09/03/23 10:07 Signed (Electronic Signature): Jaskaran Tejeda MD 09/21/23 8:26 am Technologist: ADE [facility] NM Myocardial Spect Multi Re st/Stresson [...] MD, V. 09/03/23 11:43 a Technologist: TARAN [facility] Provider Orderson 09-03-2023 Provider Orders [id number]#1.00OT [facility] Provider Ord[place] 09-02-2023 Provider Orders [id number]#1.00OTGT IFF [facility] Provider Orders [id number]#1.00OT [facility] Consent Formson 08-24-2023 Consent Forms [id number]#1.00OTGT [facility] Surgical Pathology Reporton 08-16-2023 Surgical Pathology Report (NOTE) [id number] [facility] ANATOMIC PATHOLOGY [address] [place] [address]. [place], [place] [address] SURGICAL PATHOLOGY CONSULTATION Patient Name: GURVINDER CHAUDHRY MR#: [id number] Specimen #[id number] Procedures/Addenda MOLECULAR PATHOLOGY REPORT Date Ordered: 09/16/2023 Status: Signed Out Date Complete: 09/16/2023 By: Obie Marie M.D. Date Reported: 09/16/2023 INTERPRETATION AT THE REQUEST OF DR. MISSAEL TEJADA, BLOCK D1 WAS SENT TO [facility] FOR DECIPHER PROSTATE BIOPSY GENOMIC [employer] FINISHER TESTING. THE RESULTS ARE FOLLOWS: GENOMIC RISK IS: LOW RISK OF METASTASIS WITH RT OR RP: 7 YEAR: 0.5% 12 YEAR: 1.1% RISK OF PROSTATE CANCER MORTALITY WITH RT OR RP: 17 YEAR: 1.2% RISK OF ADVERSE PATHOLOGY AT RP: 18.3% PLEASE SEE [facility]' COMPLETE REPORT ([id number]) FOR DETAILS. Case report, all slides and [...] negative for racemase. Controls are adequate. Normal [facility] CMP Standardon 07-15-2023 eGFR Non AA >60 Invalid Interpretation Code [facility] Comment on above: Performed By: #### 1 [id number], [id number], [id number], [id number], [id number], [id number], [id number] #### [facility] (DEFAULT) [address] [place] [address] eGFR AA >60 Invalid Interpretation Code [facility] Comment on above: Performed By: #### 1 [id number], 2833359, [id number], 2729272, 7793072, 2593246, 5477202, 1379281 #### [facility] (DEFAULT) [address] [place] [address] Albumin [Mass/Vol] 4.5 g/dL Normal 3.5-5.0 [facility] Comment on above: Performed By: #### 1 [id number], 7643600, 9082400323, 5962325, 5349068, 5204630, 6300871, 1267977 #### [facility] (DEFAULT) [address] [place] [address] Alk Phos 44 IU/L Normal 32-91 [facility] Comment on above: Performed By: #### 1 [id number], 8240659, 6264446341, 1077002, 2273965, 0474807, 3482185, 5045889 #### [facility] (DEFAULT) [address] [place] [address] ALT [Catalytic activity/Vol] 35.0 U/L Normal 17.0-63.0 [facility] Comment on above: Performed By: #### 1 [id number], 1992690, 7985991200, 5726000, 6037118, 1566593, 9525796, 1320656 #### [facility] (DEFAULT) [address] [place] [address] AST [Catalytic activity/Vol] 35 U/L Normal 15-41 [facility] Comment on above: Performed By: #### 1 [id number], 5667819, 2284283941, 0817101, 8250431, 3071503, 1049942, 9560518 #### [facility] (DEFAULT) [address] [place] [address] Bili Total 0.7 mg/dL Normal 0.3-1.2 [facility] Comment on above: Performed By: #### 1 [id number], 9780415, 4206126437, 9437072, 2447417, 1756776, 2209810, 3099562 #### [facility] (DEFAULT) [address] [place] [address] Calcium [Mass/Vol] 9.4 mg/dL Normal 8.9-10.3 [facility] Comment on above: Performed By: #### 1 [id number], 8674486, 4278446267, 2720085, 7085166, 5557518, 2596321, 7044804 #### [facility] (DEFAULT) [address] [place] [address] Chloride [Moles/Vol] 102 mmol/L Normal 101-111 [facility] Comment on above: Performed By: #### 1 [id number], 4478242, 6531156045, 2158551, 1251479, 7500615, 9696069, 6119236 #### [facility] (DEFAULT) [address] [place] [address] 48940 CO2 [Moles/Vol] 30 mmol/L Normal 21-32 [facility] Comment on above: Performed By: #### 1 [id number], 9243291, 4450495091, 8687733, 8546133, 5644565, 8639082, 1373998 #### [facility] (DEFAULT) [address] [place] [address] 87015 Creatinine [Mass/Vol] 1.15 mg/dL Normal 0.90-1.30 [facility] Comment on above: Performed By: #### 1 [id number], 5957251, 9159814681, 0434925, 5751344, 5239438, 7012799, 0628289 #### [facility] (DEFAULT) [address] [place] [address] Glucose [Mass/Vol] 88.0 mg/dL Normal 74.0-118.0 [facility] Comment on above: Performed By: #### 1 [id number], 5528869, 4105434094, 7348497, 8970349, 2505373, 5263518, 3132777 #### [facility] (DEFAULT) [address] [place] [address] 26876 Potassium [Moles/Vol] 4.1 mmol/L Normal 3.6-5.1 [facility] Comment on above: Performed By: #### 1 115529175, 8903397, 8257415636, 9096013, 4152261, 7489137, 1356029, 0437794 #### [facility] (DEFAULT) [address] [place] [address] 852[address] Protein [Mass/Vol] 7.1 g/dL Normal 6.5-8.1 [facility] Comment on above: Performed By: #### 1 [id number], 8919722, 4610027557, 9532688, 4702230, 3907544, 5892536, 8884773 #### [facility] (DEFAULT) [address] [place] [address] 80696 Sodium [Moles/Vol] 140.0 mmol/L Normal 136.0-144.0 [facility] Comment on above: Performed By: #### 1 [id number], 9650160, 4423029726, 8148343, 1611268, 5088921, 8396681, 2704759 #### [facility] (DEFAULT) [address] [place] [address] 93350 Urea nitrogen [Mass/Vol] 25 mg/dL Normal 8-26 [facility] Comment on above: Performed By: #### 1 [id number], 1226866, 3458019137, 7870853, 6342391, 0428107, 7315580, 5803363 #### [facility] (DEFAULT) [address] [place] [address] 49957 Albumin/Globulin [Mass ratio] 1.7 {ratio} Normal 1.4-2.6 [facility] Comment on above: Performed By: #### 1 246965156, 2298575, 7606532892, 3223026, 2286936, 3549786, 2436244, 1021211 #### [facility] (DEFAULT) [address] [place] [address] 12193 Anion gap [Moles/Vol] 12.1 mmol/L Normal 5.0-19.0 [facility] Comment on above: Performed By: #### 1 712071467, 5747762, 2593158654, 9975706, 6384088, 4782226, 7446428, 2714273 #### [facility] (DEFAULT) [address] [place] [address] 30642 Globulin (S) [Mass/Vol] 2.6 g/dL Normal 1.5-4.3 [facility] Comment on above: Performed By: #### 1 089486755, 7066960, 4673754189, 4214521, 0220585, 6519685, 1345083, 1789723 #### [facility] (DEFAULT) [address] [place] [address] 25770 Osmolality 283 mOsm/L Invalid Interpretation Code [facility] Comment on above: Performed By: #### 1 [id number], 0261593, 2588428779, 4680169, 4067910, 4667645, 9574940, 9784517 #### [facility] (DEFAULT) [address] [place] [address] 34433 Urea nitrogen/Creatini ne [Mass ratio] 21.7 mg/mg High 4.6-16.2 [facility] Comment on above: Performed By: #### 1 095151041, 6707644, 2561806439, 2563550, 5154879, 1634657, 3554355, 0413260 #### [facility] (DEFAULT) [address] [place] [address] 97276 GGTon 07-15-2023 Gamma glutamyl transferase [Catalytic activity/Vol] 22.0 U/L Normal 7.0-50.0 [facility] Comment on above: Performed By: #### 1 326777835, 5399905, 1108733592, 0327671, 4040421, 2856025, 1601429, 8562139 #### [facility] (DEFAULT) [address] [place] [address] 12706 Iron Levelon 07-15-2023 Iron [Mass/Vol] 114.0 ug/dL Normal 45.0-182.0 [facility] Comment on above: Performed By: #### 1 [id number], 6537712, 5638132731, 9673684, 6253809, 5764826, 4319856, 6239052 #### [facility] (DEFAULT) [address] [place] [address] 18512 LDHon 07-15-2023 LDH 257.0 IU/L High 98.0-192.0 [facility] Comment on above: Performed By: #### 1 624204900, 1260612, 9591371592, 3707451, 8549713, 2690597, 7093539, 6402943 #### [facility] (DEFAULT) [address] [place] [address] 47495 Lipid Panel Standardon 07-15 Cholesterol [Mass/Vol] 188.0 mg/dL Normal 66.0-200.0 [facility] Comment on above: Performed By: #### 1 420721147, 9122657, 5579931880, 7377967, 2719620, 3212306, 6990116, 2334517 #### [facility] (DEFAULT) [address] [place] [address] 66227 Cholesterol in HDL [Mass/Vol] 45 mg/dL Normal 40-71 [facility] Comment on above: Performed By: #### 1 104857476, 8509327, 3973418290, 5260747, 8466990, 4985803, 5036526, 1752041 #### [facility] (DEFAULT) [address] [place] [address] 12661 Triglyceride [Mass/Vol] 130.0 mg/dL Normal 0.0-150.0 [facility] Comment on above: Performed By: #### 1 530454829, 3929995, 7809114475, 8675792, 2881973, 3123305, 2121106, 9809657 #### [facility] (DEFAULT) [address] [place] [address] 20674 Cholesterol in LDL [Mass/Vol] 117 mg/dL High 1-100 [facility] Comment on above: Performed By: #### 1 645021884, 1602026, 3292393401, 6523490, 5859800, 2175049, 6086177, 6873214 #### [facility] (DEFAULT) [address] [place] [address] 15037 Cholesterol.total /Cholesterol in HDL [Mass ratio] 4.1 {ratio} Normal 0.0-4.5 [facility] Comment on above: Performed By: #### 1 847555485, 7427047, 4926934603, 1908206, 0326835, 1991533, 3709218, 8426654 #### [facility] (DEFAULT) [address] [place] [address] VLDL. 26 mg/dL Normal 5-40 [facility] Comment on above: Performed By: #### 1 776376053, 7063784, 5968900019, 2911335, 8862605, 8746891, 6505059, 1872713 #### [facility] (DEFAULT) [address] [place] [address] PSA Screenon 07-15-2023 PSA Screen 5.97 ng/mL High 0.00-4.00 [facility] Comment on above: Result Comment: [employer] System (Chemiluminescence) Values obtained with different assay methods or kits cannot be used interchangeably. Results cannot be interpreted as absolute evidence of the presence or absence of malignant disease. Performed By: #### 1 [id number], 3857997, 4530370867, 5294694, 5017659, 6752795, 2095710, 9177203 #### [facility] (DEFAULT) [address] [place] [address] 12219 Phoson 07-15-2023 Phosphate [Mass/Vol] 3.2 mg/dL Normal 2.5-4.6 [facility] Comment on above: Performed By: #### 1 [id number], 8824958, 8104650172, 6305917, 8761714, 3671179, 5664274, 0457300 #### [facility] (DEFAULT) [address] [place] [address] 10828 Uric Acidon 07-15-2023 Urate [Mass/Vol] 6.0 mg/dL Normal 4.8-8.7 [facility] Comment on above: Performed By: #### 1 [id number], 1883750, 0559302844, 6748159, 6120589, 6688153, 9251461, 1834376 #### [facility] (DEFAULT) [address] [place] [address] 44848 Encounters Encounter Date Encounter Type Care Provider Facility Start: 09-03-2023 End: 09-08-2023 ambulatory Dev Ch Facility:[facility] Start: 09-02-2023 End: 09-03-2023 ambulatory Eli Santos Facility:[facility] Start: 08-16-2023 End: 08-16-2023 ambulatory MISSAEL TEJADA [facility] Start: 07-20-2023 End: 07-21-2023 ambulatory Dev Ch Facility:[facility] Start: 12-01-2022 ambulatory JAIR CARPENTER Facilit y:[facility]1 Start: 07-16-2022 ambulatory ROS CM Faci lity:[facility]1 Start: 01-28-2022 ambulatory ROS JOHNSONCOLTON Faci lity:[facility]1 Start: 08-28-2017 End: 08-28-2017 Emergency department patient visit DEV CH [facility] Start: 03-02-2017 End: 03-03-2017 Ambulatory DEFAULT PHYSICIAN Facility:[facility] Payers Date Payer Category Payer Unknown [id number] 1965 Unknown [id number] 2.16.84 [id number] 1965 Unknown [id number] 2.16.84 [id number] 1967 Unknown [id number] 2.16.84 [id number] 1967 Unknown [id number] 2.16.8 [id number] 1967 Unknown [id number] 2.16.8 [id number] 1967 Unknown [id number] 2.16.8 [id number] 1959 Unknown [id number] Unknown Summary Purpose Family History No Family [...] section and content) DATE CREATED AUTHOR 03/15/2018 [facility] DATE CREATED AUTHOR AUTHOR'S ORGANIZ ATION 03/16/2018 [facility] DATE CREATED AUTHOR AUTHOR'S ORGANIZ ATION 11/28/2022 [facility] DATE CREATED AUTHOR AUTHOR'S ORGANIZ ATION 09/17/2023 [facility] DATE CREATED AUTHOR AUTHOR'S ORGANIZ ATION 09/21/2023 [facility] FOR RECORDS PERTAINING TO PATIENTS WHO [...] BE BASED ON THE PRIMARY CLINICAL RECORDS. [employer] [facility]. provides no warranty or guarantee of the accuracy or completeness of information in this document.
== END 2023-11-11 15:57 | disposition home or self-care (01) ==
LOC: EC 15:56
PROVIDERS: PCP Family Medicine; Visit Provider Physician Assistant
DX: M19.071 Primary osteoarthritis, right ankle and foot (principal); Z96.661 Presence of right artificial ankle joint
CPT/HCPCS: 73610

== ENCOUNTER 2023-12-08 14:38 | Outpatient (OUT) | payer OTHER, SELFPAY ==
--- NOTE | 2023-12-08 | XR_ITS ---
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 SOFT TISSUES:No visible soft tissue swelling. EFFUSION:None visible. OTHER: Negative. XR/XR ankle RT min 3V IMPRESSION: 1. Stable surgical changes. No appreciable hardware failure or change in alignment. Electronically authenticated by: SHERI ALEXANDRA Date: 12/09/2023 07:22
== END 2023-12-08 14:39 | disposition home or self-care (01) ==
LOC: EC 14:38
PROVIDERS: PCP Family Medicine; Visit Provider Podiatrist Foot & Ankle Surgery
DX: M25.571 Pain in right ankle and joints of right foot (principal); Z98.890 Other specified postprocedural states
CPT/HCPCS: 73610

== ENCOUNTER 2023-12-16 09:10 | Outpatient (OUT) | payer OTHER, SELFPAY ==
--- NOTE | 2023-12-16 | XR_ITS ---
[address] [address] Patient Name: GURVINDER CHAUDHRY MRN: [id number] date: 1965 Sex: M Assigned Patient Location: Current Patient Location: Accession/Order Number: [id number] Exam Date: 12/16/2023 09:17 Report Date: 12/16/2023 10:01 At the request of: JAIR CARPENTER Procedure: XR foot RT min 3V PROCEDURE: XR ankle RT min 3V, XR foot RT min 3V COMPARISON: 12/08/2023 HISTORY: RIGHT ANKLE PAIN FINDINGS: BONES:Total talus replacement in anatomic alignment. No acute fracture, dislocation or mechanical failure. Mild plantar enthesopathic spurring of the calcaneus. Mild degenerative changes SOFT TISSUES:Moderate diffuse soft tissue swelling EFFUSION:Joint effusion OTHER: Negative. XR/XR foot RT min 3V IMPRESSION: Stable talus replacement Soft tissue swelling Electronically authenticated by: JOSIE DICKSON Date: 12/16/2023 10:01
--- NOTE | 2023-12-16 | XR_ITS ---
[address] [address] Patient Name: GURVINDER CHAUDHRY MRN: [id number] date: 1965 Sex: M Assigned Patient Location: Current Patient Location: Accession/Order Number: [id number] Exam Date: 12/16/2023 09:17 Report Date: 12/16/2023 10:01 At the request of: JAIR CARPENTER Procedure: XR ankle RT min 3V PROCEDURE: XR ankle RT min 3V, XR foot RT min 3V COMPARISON: 12/08/2023 HISTORY: RIGHT ANKLE PAIN FINDINGS: BONES:Total talus replacement in anatomic alignment. No acute fracture, dislocation or mechanical failure. Mild plantar enthesopathic spurring of the calcaneus. Mild degenerative changes SOFT TISSUES:Moderate diffuse soft tissue swelling EFFUSION:Joint effusion OTHER: Negative. XR/XR ankle RT min 3V IMPRESSION: Stable talus replacement Soft tissue swelling Electronically authenticated by: JOSIE DICKSON Date: 12/16/2023 10:01
--- OUTSIDE RECORDS SUMMARY | 2023-12-16 09:26 | XMS_ITS | CCD ---
Author Organization [facility] Care Team Providers Care Baked Goods Stock Clerk Name Role Phone DEV CH Unavailable Unavailable QUIN ROBISON Unavailable Unavailabl e PHYSICIAN, DEFAULT Unavailable Unavailable PHYSICIAN, DEFAULT Unavailable Unavailable DEV CH Unavailable Unavailable ROS CM Admitting Unavailable ELIZABETHANDER, ROS Smith Attending Unavailable TOI, ROS Smith Consulting Unavailable ROS CM Admitting Unavailable ROS CM Attending Unavailable JAIR CARPENTER Admitting Unavailable JAIR CARPENTER Attending Unavailable MISSAEL TEJADA Admitting Unavailable MISSAEL TEJADA Attending Unavailable DEV CH Primary Care Unavailable Dev Ch Primary Care Unavailable Eli Santos Attending Unavailable EisensteinEli Admitting Unavailable EisensteinEli Attending Unavailable EisensteinEli Admitting Unavailable Dev Ch Primary Care Unavailable Dev Ch Primary Care Unavailable Allergies Allergy Classification Reported Allergen(s) Allergy Type Date of Onset Reaction(s) Facility (3 sources) cephalexin; Translations: [Keflex] Drug Allergy 09-20-[address] [facility] Repository Problems Active Problems Problem Classification [...] Coding Summaryon 09-16-2023 Coding Summary HTMLBase 64 VdgyrfpzEAt8bKb+PGhlYWQ+ WW9IJISyR88vzFOcaE0jZ8GC TElOSywgQVBQTElOSyIgbmFt QU5keCQiCPOu IC8+HU8hCPBcNmzybNRwf1Z6 mXL4N45hau5cOIlikCA0ILDv UoGzjyyno9ojiMs1INvtXfit OyBt GVQnpL77JCD1iZ93Cd57qVAl aQIoz0stoZu7NvLyOVTrBFR1 fWmpXTrdi6YuTTXyO34riPUj c2U6 EJUapPwbiYLhRbCtjGJ9nW3w TKvzdudbj6lhvmamYhq6ez69 vMTcr7Z1wNX2X3XjchH7ODWo bGQg BojwdPJZiY3hkdjko6jastnm WxDkQHAnEYw0WQu1AQIggWkl QnRkZC81NFT7MGRvndFeA6Md LWFs mEukNpI0m6T8Gv5DG2GCMxuq O9DPIQHXMWjbfWL+OA60pv79 F2MxFuwbIjp3RZGcYAJ5sCH2 aD0n IMCgWLiii3L0qIU3D8ElnkIj nd2cx5wxGQApRTkmF84pjNMl v0C8INSfvPV5EXXgiSngHaVa aG93 Oyc+KXYqhKcka2CcLenvy3ie w8jmzLs7RxxtJGFbtzEzsOkr ZDT5b4AsOd1sHASixWT8xTU3 aD0i BaQzXyQ3PWtkM148ZcOmaTRd StazV41kM5JngPR+PHRyPjx0 YKWvmSlhID6bE9MtESXebkwt bGVm mYunJU2rBXKnblsmDZZplQ2k ELHjF5k6HzKdMgK6ZSenO2Rf JUOqbxpxRa74dI8gEfWrSrY5 MGlu W3FdvfM1GYAlnQClMFsdAKQ0 E60ip2Q3LDDdTSZpBLA7wHC3 iL9dnWomyzmrfKFpgCmqphPu dGlj TIsmWWvpK863OKJpdJzoWkZw ZGluZyBEYXRlOiAgMTIvMjgv MjAyMzwvdGQ+ASGlFYB1yPjy PSAn cJLlNUybRi2qrVcmsWdpWF1z QRLhtgqsKUPthK0dRHLdrBOm rTrkJO5aUFIljuxdt823PpJv MHB0 AZLriVIkU5EefC8sJlAsULGf THKcN7CcgVObUOmqF235ZObf CyS1GZIvryCcA3JnEZTbhOyc OiB0 j3I1Eo2We2SretwkV5SbuYKs XxUyTrqcQAl0W0GiXyjsfSH+ PG90LAKcQU98YUb3VEA6eOwj PSdi HNFkF4LjmI5bDrGjGRHvZTQx Oyc+PHRhYmxlIHdpZHRoPScx PORuXgGzcYrfRT8sQt3kBCLl LWNv yBbmkPSfEjGsr7ksCBRvHWoj RF3toEatE9VwvHC8WNFei5a3 Cg60K43kI5HqeKL+PGNvbCB3 aWR0 lO1sOwTiWvZ2DVffX765DfBo fEYsPpvfb4voi9rcxPr4AeN9 FFJkfxLgjLkeHZF3j7EvBv07 Y29s IHdpZHRoPSIxNSUiIHZhbGln wc1jgA1lYb4+BZBxlFL1xVM8 oH6oLlKnQtU4UYzoN091PwMa cCIv Zzxgc9fvh0glnLd2EqGsPCIe vcHhpOhlYKO6t4XvIp84O4Rz wNbvg7XfXde7to92eWJry2X7 bGU9 U1CqNZRuqajibRDhjEtsFY8x VYBatfimXXJccB5fWJNyF4r8 ZmVoByS1CNuiF4SrscF2GBBg bGQg OYXcsUGTpB5xxlphb0dbzovp HxPvCTAxPCz7EVx2KEWheHds VeIiESJ7RyM0NFK3lBOuvE5u bGln shcfoE7nHvl+JAT2sOIyzTPD EV2kEpcvhGD+FQOfYMU9nIfa BHmrHKPetD2pEYVxM7y5JsGz LjA1 CMnzZ7YcafK2MHXhuRXxUSHx jEGUgM0thzgut0sneamwOtAd SGCfMAl4XLm9TOYfoPtdVlZg ZWZ0 DvB4ZNE3vRKffR2qqQmkaajn uZ6hRvx+TzpkhUzoAGM4LMk4 Q0FkVpu9DGWjcYaeIZ9opFRm ZGlu Xx0wzPnytJebHX7mRJJbttcv o533ShWdt5lqZQXkwGZzUIgj UYA5E15eu8T0HPRiXSIfBQT9 dGV4 kQ2xlGbinmwokPJpeEqkjtLm cBffPDkaSFzxO893TRBhvMlc HlQsDUa1U0DaKto3EPLwfHpp ZT0n wYSeSLjgWx5vnEtqyBatQJ5f VSRxusokf010HeInu4uoRIMh oWQdGVnqMFF5B26or8M0EXNm MDAw PZM6hKE6eZ8ysHsreowpjAEz qZcpbdAvsQgdEPbvJYnmR757 JVSnjKlpBnTfbMs7D3MwKyf5 ZCBz jGtuTD9afHJbTFauFi1uyKmi aLzhHT9nNDDumrjvw977AoHm d9jlVMDarBUqUGafTZS9U46q b3I6 BZWrOFSfUGB5mVL7tA6crFbs bjogbGVmdDsgdmVydGljYWwt KTdfD313WQMxpDxnGuHabLlk bnQg AVnbMBw9R0KqIfqwvHI+PC90 IPWkFH94eQJlrPBhp3vusWq5 InSgKKHiYAU4bWjlNWrrx4Ku ZXIt U88srLVdt4G1XNKthTtwbFFd LoIngVH7pY7zTXgzduqhs1hx gzgoSsxxn3zsnz08fQ08B77k IHdp VKJvFKXnYYEtGTBdaFxcpf7g bP6oSl7+KOVqoMI3hCO2hS4r GPYnWmR6VTqwU765FiQniPUp Pjxj p9ycm5gsgFr6UjU0RTYhtaYv aVvsEAQ0y9SgHa59O45vTHfp NBRuOIToFDQhAURfkIphne8a dG9w Ii8+CEPfuHN7xRF0jB0zLjIk AbA1ACsoT944OzRwqLFkErkz G69sI7QogXJ+VARoXjz0CGFs dHls OT9ltLMsEFqcPs0nLGV6FoIa RgJsDDmhO7UdTPAiybvesagj kYW0EAJoHNVteA38Qr4avRpe MTBw vKTYtW0mhmfge2ektfpsKyFq UOYgMZf0JJj5HAGdcRumCyOm ZZA1ReJ1RUM5rABsoO2ftQtp bjog iJ0qW7NxQMRywfccTr30oS3y UjWsJqZ8OAdbAeu+RFVSSVZB B5UoMLlYMpufDKzFPH13B2Aj Pjx0 DLTcbAmiUQ8caVHfJQxiTr9c eUbemSryOG9cVSQempuhCSZv zM3uHRMyiWAglRbtBG0fPMEf bjtm h347OrKtECE2LTItrCQhQ3Di oE0dOfSvDIWwMPDcL8FbmHAo EYqkZ106GEgvNoN2ZYTlffTd Y2Fs WQGdmWnoQcV6o8I0Zh4aWC1i Xf6eNKI5XY94PH35lBKbn4F7 cSZ3N4ZyFMLjqftazrenvBC5 IDAu DQGnaH18gASkTGfhPr6fi5W4 s655ILZgOKTuyM94Dg1qkKbl YMWuuEKBsI2gswkjp0hsygsj IzAw DOCoGWj0IBb9KOVpxWjnLnEp XPZ2XpI0ZMU1nTZjuN7hxNua bnsycX4lFif+NTYgWWVhcnM8 L3Rk Mxs6AVEfoZnxUC0bwKLoIHrw Hu0tbKzjtDqqEX6aDDOqbpjz BPRviU7cCFGhoWQrzTsdWW8e NTBp suxff608KhAwHZT2OJFfzJUb D1IlmD7wVeNaFWNnJWYtV5Jy uAWoFQusG227IXxePrQ6COMs cnRp Y8JbRZPwzKmoEkH0t0F9Ub6B FDaKGM54AF88uIPzw3M8uBU7 R1PtEMYmgdmxcpncsXK1UCEm MDUw wQ17cUUeWXqfKi5di7P7z367 VPAfBAWlpV53Zp6daGbnCTYo mCCQnE2irlxmx6yqulvnVqPe MDAw PYp0BFn3YCEnuTgiDpWuUXW1 XaK1XAG8rRWgeQ9xeHhjtdfn eG9eGei+X8V5zIM3lOLqcPGe biBh IEJlZDwvdGQ+DA10rm09V9Gh DmkmMxs8AODrOGG2zRS0lH3f FJImRCwwp8F1gGG3O3IgrqRy ci1j d0azHXYkMDccL23gjLBok2K4 KNOniCO8HXMzdNenEnNwfC04 Oyc+WVJffQplu7RsThfwj7qj d2lk uIc2ScFoVJPlouNwwGzlKPV8 x1YaEb17B09wIKybLGVeGBDd BREzNWNczVlhih3qaL4aFu9+ PGNv qFA4eGI1cG9gJlBsTpZ6VRpw T586RxDsiRUfUftrr7zji9ej kCv0YeChQDYhodJafXlpFJP5 b3Ai Og38X2RegBcpv6MfHxc4tc88 xZMsj2U8zMJ2U6WbLFLzlitt tXCbrJdsJO8aXAJxbaacGVWe aW5n XOXgT3u8MgHxOkC3ZKhzH7Lf reN3FWDnzTZrQZTzjTFAkD7w wtdgz3sjuhzdKnXsUIGwVTz4 ZXh0 PCJabChpBkNeMVM2CgZ4CUP2 rRHiiP3yfAotjknwxL2gJnq+ JAj5s7qhuNRlZJ8rsMG4IL96 ZD48 yEWvp8T0aFL4B7RwQNEhlsyl cgohmFE2ACGdKLZluE88Zx8i lRycFq9sYNHgDWL0MXEpdOAx O2Nv oB9zAbLeXNXdWHXrA2VcuRWi KBwjQ152KGxhKvK0QDGwkdIc Y5HkSGUkqCmiYtS0j3G1Ad9S SU46 HN43ZG72nKSof1O7wDV9H0Xe KSOnvucpxjlhwIB8XPJpACTv mV04Lg0yiPbiWb9dOZOmRQK3 IFRp gLAaG2DpqD3eQwLmAPTwGGIo I9DtmVQdWFliQ153GDacJvN8 LQRjizKmZ6WdOTSyfUchRgI8 b3A7 Pc4LWj68JM23GW46fFPgc0P7 yZV4G3IvHXVtsktilhuciTU7 HOZyBTMbqK84Za1unXcdAa5p ZCAx ALL2FFHdcROtE3IudB1eWfFb UYAlPVHgI1UhyBRpTVzyM560 YLdmGmW2ZOKwhfJrM8MwJMDd aWdu BoD4o8W3Od7JNMfggew0H4Zl PjwvdHI+MF59PQEeUE39nRRh pGCwh3czdKr1EjTpNIOqYYH3 eWxl PSd (more content not included)... [facility] Coding Summaryon 09-15-2023 Coding Summary HTMLBase 64 MsjikbreXYg2yVn+PGhlYWQ+ HZ9SFMKpA73bcFDoqZ9nE9MK TElOSywgQVBQTElOSyIgbmFt HD7ckBIdPIOs IC8+ZO9eFGKwZidtsANyw9R6 rJG1U53bpq2zJAljfIC8LPBx BiOzrzlwn3osgMs3RBmmPhrs OyBt IOMxyB23XIH6mC03Qt82vJRe zNIkb5ichQt4TtUtGNTqSRG2 zZuiWZxbe5JiIXCsA27ifGLl c2U6 VHGbcDkcwWFtYoVmxVL4fR8d USdtwhdzw6jjctoaHgf2rb36 sAMcg8C7oHN5W1KusqR6EQNu bGQg EubemMVMqV5pjgfzw1mtkqzy QvPoNGZgLPk1JIr4MDAmbKyy AmMsNL20EKS4VRNyhfNbD3Bd LWFs nLheReY6i8N5Ic3YX5UTHdew G6CCGQXIDFtomTH+JF07xa72 C2DwRalmKqp5SBJcACS5cJM0 aD0n CFFmZOlqv9U6rPW6I5GqjcRh pi3kx8bnUUHvTWyjH77ntQZz f0F4OHCngHJ3IJDjmSrfOeQc aG93 Oyc+OGJozRqlw1KbZacde1sa d0ejdUt5YriqYMLyqzJgxTrx OLR8h8CuYk5iIXCgeOJ8hSZ3 aD0i KtFnYvG7UWkvA129LeLesBNu KlyhS13mA3CxlNM+PHRyPjx0 GKCvkHtbQS3aF4IwMYQegsus bGVm yFhmSY4kDMVvayniXRSqlM3s DOZtJ6h4PjUaAmM6QGvgC4Sg FFJflaelNt60wU5hFdMxHaN8 MGlu Q4LdgdC1VCYjgRDlNGwiHRZ7 Z32gq6Z4MBMrDWWdSIE0mFW2 dC5xsJknbppwzOGeyJqfycGj dGlj BOvhUKowL542IOCizWmwCnHk ZGluZyBEYXRlOiAgMTIvMjcv MjAyMzwvdGQ+PORvHWT2tGvn PSAn nSIeBLcaLw6cgXmhmYtbXL8m QVKfqdjiVYTiwS2bMGUkoBDs pVteGN8wPSOrmdrpd132PiMx MHB0 OFHghMZxH1NrnR9qWaLaOLJf YITjC7IgyJQpSSldM335WWnr EqL7BVPnanWiR0WmUHCnkMfa OiB0 x0K9Ny7Db4CdgdydJ5NuyFRs GzCmAaowXYd4X0SaLgsuxBM+ ZA25MYIgKY62LAs1GZP5uEua PSdi ZPHbY3HbsT9bLhMiIWXhVAJo Oyc+PHRhYmxlIHdpZHRoPScx GOMzLqQosMunRE9qJs0kWNMh LWNv iZxsiMEaHzMmq8cfWWEpXNxs NW4hvKjfT0AdrIA9UKWyy9f5 Od21A37bH6BmgKZ+PGNvbCB3 aWR0 lE5uRoXzNgW7KVhfA899WtNf yIGbHompv2bsn5oduMo2DjW4 UUBfkpTlkNfrEFM3r8McTh83 Y29s IHdpZHRoPSIxNSUiIHZhbGln wg9rtH8jIx9+WHDknVL0uZP1 sW6uSuXnXfC9ILjkY579VyBj cCIv Wxcyn8mtg7smrMs3AjSrAFTh opOyyFywRVX3a7EvTg15D9Gw qXqup7LtZfc6sg52kXEqg4K3 bGU9 P2IdTPAdiegwfTZqdBihRF4o CAGiictdUMOswP2qWRCsJ6x7 BcZuOnN9EAheE2ZnttF2LVZb bGQg SNSffYGNpN9gwuouu4htddre CySlIHPoLUb9ZEf0FBHvhOub JfCcNVC4NdA1UZF6nOHayD6s bGln pwwvaM4qJqx+NCF1eWWhrOMZ AY2pMcewqCZ+LCErRIR2cJyf KSnzFKNeoU3sDZMpG6a5ViYh LjA1 NSmmK0IqxoB2WAIteIAcLJRt tVPLsB1cwgrwx8dfqamzXeKk QYZeHEy8YOx2ZEApmCtfVpCy ZWZ0 FbI2HGW8iYTulY9gjNqzumva lS4oObb+FosokBdcAHR6PLf4 Z8OrIet6WPHitXctLH1bzAVk ZGlu Dn7brUwukQlfQC3cPCMnqrqz v777DxDhm9zuDBCjuFRaRCdv HXR2N01us4F8IRHiLTFbBMW3 dGV4 aZ4xwFkruqpazSLbyKepxgRj zMmdXRsuZKomG943IRLkuNrc KfQfOSn7U6GlUwc7RPPbcRff ZT0n mREyCUqpUx5iiXvxbYvzZX7s LVPbwckjr956QiLuh7xwXBUp zHAsDEqcKZN7X24jo4W0FTPk MDAw VEM0pFL1zW9saTyjofwqcAKo fUqmpxNpqWrrNScyXKelA164 TKAzwBnmLeFpkZb1H2KlIyj4 ZCBz zCspZU1qaBElDOrsJk3xrBsx hSrqRT2bOFBnmjzdb311LuYn n6dhJLLvzOAwJRabCGB0F66a b3I6 HBWkUXPoGSD8sBF3lR2ziHuf bjogbGVmdDsgdmVydGljYWwt GWkfA114OBZuhVovLmWyfEfk bnQg CGemWHf2O1WgJnsbmPZ+PC90 DINsTY60kKYcqGOol1gfpBk7 LqHiZSEhFQG3yFacYElbz9Zf ZXIt K27sxVXvd6L8YLCmhCakfWPo ObWanSH2yB7bJKnuvrxyn5ul vpvpDozch0sfpj33aP48I17g IHdp XJJvYIIjLKBiDJFvzZwkcx4m yZ2fYl6+XJCrpLB3vTD0hA6b KKPnWjC2WDlzE694NrTcxLAx Pjxj t3ril0jxtVb2RdL1FNVpiqMy vVndXKY1h3IxId40P92tTSnd WHSyUGKiWGHbCVQpqOawyc8g dG9w Ii8+ATSfyMY1uFW0bN4uNnOy ChX3NXhdL641PeBqcKGtEkqc K00gF7MxqBF+DBQqZlu7DUEi dHls UN3xfBMxARubIi9eUFE1OpHv XpMjCUytP8OtCUKziaumchqy bTF7TLYzIZSkbE86Lk5ovUkf MTBw cLNInE2rhmbbm7khiqaaFsCa LYHiVBg8RCf5KZEleTkoQlRi SYA9YvJ0XZY9wLHnyL9cnZfs bjog rV6sU8TpGEUnmnjzKx64hU1g JiEiGsH2JKuvBay+RFVSSVZB T1WrOScRHnseEJfXIL74Y3Gz Pjx0 LPOmaFsaTY8bnPRiDIbuDv3x bKnjgGhtXP3lKQXztlyyKJCg uI1vWYUlvMZgmFlfQI4kGPGz bjtm y367QcJkQQG4TDHryFKbQ1Ge cS0qIhWlNBTxFIAeR1NkoEKm YXgnK461UAoiGpZ2OLUlnyAi Y2Fs XBMsiLgwHkH2b1L1Vb1pKE9h Tc7oUPV3YQ37ZI08tRKuw3G4 yHU8W9JiLTQgcqpexzmryQY7 IDAu SNNbpG94xFHvBAaqXu7hi0G8 a960NSUcITUxmE88Za5glXte FZIufLGTxO5szgcik2wmeuci IzAw ZGHwPWq6GTf0BCXfnWsxUsRw FQT0NkI3EYG4fSLwlM0aeDjx fqiwqE9pPop+NTYgWWVhcnM8 L3Rk Rqa7JIRgfEyuKF1haTJnASmg Nm7jyTqfoRdiEE5bRYFjqixm RNZdfU2nFYFdgMXwjKzyRA8e NTBp nzevt541XwLbZQY1CGSujWVd Z2GpeI3sLhHmFYIvWFPrG3Gu jYHnGJucK827VGoeCsW2SWAq cnRp O4HxQYAhxLdwNrD1j2F5Kd6E OOpCTA37AZ03tJKld4Q0dIN1 O0HdIQAfktddhwbvfTK4XMGw MDUw fR22xAFdVGjaDw4kl3Z2l208 FVPbVTOwaT92Ae3znMfpEMAr bNILvD3cwlydp9huplliZaOz MDAw GYo8ZYr8XZSwrGxfXiXaRER6 JdS7CZF5cVVtmQ9zdCzujzrt eJ7lEbl+D3P8K9VmUgopvEC+ PC90 KMFhKO35yQOnkJQna8issKs7 VnGaOIDgIGH9rVwcVYyyd5Kl XCIjR59yvFNpp2P6SZOhfUok cHNl MxDpgXZ3vA3uFYrqupyfx2dm anqaUazym1zedw81vQ10T94p IHdpZHRoPSIzMCUiIHZhbGln bj0i tP1yIb6+WBArnYM2bEJ2oH4i UtAgBpL0EQpwX916JlDihWUg Ictkp9thr3hokYq6NqNcLFGa dmFs qIllNXV3s3KgZi95W17zRZfx SYWlTPNbSBCjOKMcpLrwhy1l mT3cMn8+LU7uo8tinw92iX88 dHI+ MXWrFHB2iWoyURleCDDkjR8t BPmhAlX2JRNaEnSwlW29nINi EFmhTp2hyOwipDunWK4pRACj bjtm l358XrArc1wqSDVhoXBlPSfj XLJ5M18xk4G9BVDdLPSsUIL9 pCL2mB8eeCuvitelzLRxyCgn dmVy aVbsFVopCXgqY976FLTlaTha ZlAacRHtS6birbKDLV7eJmpr dGQ+YZYwWQA9uMzbJTolXFMz aW5n VMVkQ2x6ZbIvOdU1YLspH4Ik orA9CFYmhJThQRKliAXWnU1l avkug7ceauhzTiHkAADcMIb8 ZXh0 PLYoeXsqXeFuPIA7NjS0FAH2 rCZasS2nsFwendazeI8oPyb+ RklOOjwvdGQ+QPBdHBX2kLxg PSdw GEMbnZ9aACJrD5z1VwHkDaV7 NJuhQ7PzklP1GSUvzNNwMLMh eEHUtN3yetpsy9etychvPvWk MDAw CNe8OMz8SYXlwAdrLdRtBVV1 CnU2INT0kMCzqD1diTylhdcz iI8dDmc+TVJOOjwvdGQ+PHRk IHN0 pBihRFiwLMUgzV0pJQWkK7s0 OwItVmF8SAvxY4XdnuP8SVHf fIXeFEIziOYMcS3wkeica4ib cjog PvLfXMEdRAh5FEe4XLTjsGwy IqYqUSA8SrS7JSE1rYFklK8p uQkwdrauyX1wDzf+NQX8GTY7 PC90 MK89M1YbOnaisKXovTQ+PHRh YmxlIHdpZHRoPScxMDAlJyBz tJsuCC4uBy1fUXJnDDIeaRcs cHNl OiB (more content not included)... [facility] Consent Formson 09-06-2023 Consent Forms [id number]..[id number]#1.00OTG TIFF [facility] Stress Teston 09-06-2023 Stress Test [id number]..2020 [id number]#1.00OTG TIFF [facility] CV Stress ECGon 09-03-2023 CV Stress ECG [...] reported separately. Jaskaran Tejeda MD JOB #: [id number] ul Final Dictated by: Jaskaran Tejeda MD Dictated DT/TM: 09/03/23 10:07 Signed (Electronic Signature): Jaskaran Tejeda MD 09/21/23 8:26 am Technologist: ADE [facility] NM Myocardial Spect Multi Re st/Stresson 09-03-2023 [...] Garcia MD, V. 09/03/23 11:43 a Technologist: [facility] Provider [place] 09-03-2023 Provider Orders [id number]#1.00OT [facility] Provider [place] 09-02-2023 Provider Orders [id number]#[id number] IFF [facility] Provider Orders [id number]#1.00OT GTIFF [facility] Consent Formson 08-24-2023 Consent Forms [id number]#1.00OTGT [facility] Surgical Pathology Reporton 08-16-2023 Surgical Pathology Report (NOTE) [id number] [facility] CONSULTING PATHOLOGISTS [facility] ANATOMIC PATHOLOGY [address] [place] [id number] SURGICAL PATHOLOGY CONSULTATION Patient Name: GURVINDER CHAUDHRY MR#: [id number] Specimen #[id number] Procedures/Addenda MOLECULAR PATHOLOGY REPORT Date Ordered: 09/16/2023 Status: Signed Out Date Complete: 09/16/2023 By: Obie Marie M.D. Date Reported: 09/16/2023 INTERPRETATION AT THE REQUEST OF DR. MISSAEL TEJADA, BLOCK D1 WAS SENT TO [facility] FOR DECIPHER PROSTATE BIOPSY GENOMIC FOREX TRADER TESTING. THE RESULTS ARE FOLLOWS: GENOMIC RISK IS: LOW RISK OF METASTASIS WITH RT OR RP: 7 YEAR: 0.5% 10 YEAR: 1.1% RISK OF PROSTATE CANCER MORTALITY WITH RT OR RP: 17 YEAR: 1.2% RISK OF ADVERSE PATHOLOGY AT RP: 18.3% PLEASE SEE [facility]' COMPLETE REPORT ([id number]) FOR DETAILS. Case report, all slides and [...] who concurs with the diagnosis (OSMANY). Riccardo Hutson Electronically Signed Out 08/19/2023 Clinical [...] negative for racemase. Controls are adequate. Normal [facility] Standardon 07-15-2023 eGFR Non AA >60 Invalid Interpretation Code [facility] [place] Comment on above: Performed By: #### 1 [id number], 0088951, [id number], 7392420, 2578069, 7245848, 4895803, 6514232 #### [facility] (DEFAULT) [address] [place] [address] eGFR AA >60 Invalid Interpretation Code [facility] [place] Comment on above: Performed By: #### 1 [id number], 6215436, [id number], 4938538, 7092393, 7429848, 8439723, 1513704 #### [facility] (DEFAULT) [address] [place] [address] 34922 Albumin [Mass/Vol] 4.5 g/dL Normal 3.5-5.0 [facility] [place] Comment on above: Performed By: #### 1 [id number], 7957236, 6880655528, 0043877, 8169245, 4409798, 4377871, 4468344 #### [facility] (DEFAULT) [address] [place] [address] 36406 Alk Phos 44 IU/L Normal 32-91 [facility] [place] Comment on above: Performed By: #### 1 [id number], 2515642, [id number], 0617318, 7614259, 7038157, 2010647, 9649192 #### [facility] (DEFAULT) [address] [place] [address] ALT [Catalytic activity/Vol] 35.0 U/L Normal 17.0-63.0 [facility] [place] Comment on above: Performed By: #### 1 [id number], 6362972, 1038177187, 2949986, 5856415, 5190287, 9873297, 9495484 #### [facility] (DEFAULT) [address] [place] [address] 11422 AST [Catalytic activity/Vol] 35 U/L Normal 15-41 [facility] [place] Comment on above: Performed By: #### 1 [id number], 2776592, 7854980360, 0848337, 8652502, 8129164, 6946934, 9286580 #### [facility] (DEFAULT) [address] [place] [address] 00988 Bili Total 0.7 mg/dL Normal 0.3-1.2 [facility] [place] Comment on above: Performed By: #### 1 [id number], 0162778, 8063706482, 6621791, 1061229, 0056681, 3026842, 1722965 #### [facility] (DEFAULT) [address] [place] [address] 97382 Calcium [Mass/Vol] 9.4 mg/dL Normal 8.9-10.3 [facility] [place] Comment on above: Performed By: #### 1 [id number], 3737270, 5106066577, 2982828, 9090404, 5896902, 5759553, 1213212 #### [facility] (DEFAULT) [address] [place] [address] 63036 Chloride [Moles/Vol] 102 mmol/L Normal 101-111 [facility] [place] Comment on above: Performed By: #### 1 [id number], 7226800, 7347117646, 0838484, 0053928, 5271235, 8346725, 0562441 #### [facility] (DEFAULT) [address] [place] [address] 29894 CO2 [Moles/Vol] 30 mmol/L Normal 21-32 [facility] [place] Comment on above: Performed By: #### 1 [id number], 1626899, 7656679174, 7291953, 0548475, 4768936, 3299035, 2074595 #### [facility] (DEFAULT) [address] [place] [address] 83087 Creatinine [Mass/Vol] 1.15 mg/dL Normal 0.90-1.30 [facility] [place] Comment on above: Performed By: #### 1 [id number], 5271669, 8340475895, 6640449, 5845147, 4972865, 2167220, 4576805 #### [facility] (DEFAULT) [address] [place] [address] 35406 Glucose [Mass/Vol] 88.0 mg/dL Normal 74.0-118.0 [facility] [place] Comment on above: Performed By: #### 1 [id number], 9694399, 6480955510, 1987006, 3188446, 2404104, 2800144, 2627117 #### [facility] (DEFAULT) [address] [place] [address] 46027 Potassium [Moles/Vol] 4.1 mmol/L Normal 3.6-5.1 [facility] [place] Comment on above: Performed By: #### 1 [id number], 6832382, 2930886675, 1085818, 3618725, 3060112, 4141063, 9596888 #### [facility] (DEFAULT) [address] [place] [address] 99710 Protein [Mass/Vol] 7.1 g/dL Normal 6.5-8.1 [facility] [place] Comment on above: Performed By: #### 1 [id number], 9245678, 9545576735, 7285585, 3125877, 8198153, 0647048, 8687574 #### [facility] (DEFAULT) [address] [place] [address] 12808 Sodium [Moles/Vol] 140.0 mmol/L Normal 136.0-144.0 [facility] [place] Comment on above: Performed By: #### 1 [id number], 4654565, 4906377542, 3087214, 8238060, 2557774, 3641737, 8107166 #### [facility] (DEFAULT) [address] [place] [address] 98812 Urea nitrogen [Mass/Vol] 25 mg/dL Normal 8-26 [facility] [place] Comment on above: Performed By: #### 1 [id number], 7420611, 5026950779, 5122292, 9411448, 5346181, 3985847, 2862660 #### [facility] (DEFAULT) [address] [place] [address] 47806 Albumin/Globulin [Mass ratio] 1.7 {ratio} Normal 1.4-2.6 [facility] [place] Comment on above: Performed By: #### 1 [id number], 9785346, 8298485286, 5354910, 8096585, 4084434, 8313802, 2206282 #### [facility] (DEFAULT) [address] [place] [address] 70445 Anion gap [Moles/Vol] 12.1 mmol/L Normal 5.0-19.0 [facility] [place] Comment on above: Performed By: #### 1 377330026, 6330210, 5176501349, 8433718, 7688677, 3886771, 6874839, 3735243 #### [facility] (DEFAULT) [address] [place] [address] 80043 Globulin (S) [Mass/Vol] 2.6 g/dL Normal 1.5-4.3 [facility] [place] Comment on above: Performed By: #### 1 [id number], 9363943, 6781363562, 2938747, 1132981, 2853963, 0525476, 9850850 #### [facility] (DEFAULT) [address] [place] [address] Osmolality 283 mOsm/L Invalid Interpretation Code [facility] [place] Comment on above: Performed By: #### 1 [id number], 7671588, 9019097074, 1472165, 1310444, 5182827, 9178649, 8201835 #### [facility] (DEFAULT) [address] [place] [address] 14373 Urea nitrogen/Creatini ne [Mass ratio] 21.7 mg/mg High 4.6-16.2 [facility] [place] Comment on above: Performed By: #### 1 [id number], 5826859, 3199350789, 8521578, 3842454, 7374453, 7519063, 7796873 #### [facility] (DEFAULT) [address] [place] [address] 89773 GGTon 07-15-2023 Gamma glutamyl transferase [Catalytic activity/Vol] 22.0 U/L Normal 7.0-50.0 [facility] [place] Comment on above: Performed By: #### 1 850863252, 2224824, 4718602104, 6588511, 3256975, 9366837, 9468924, 8414260 #### [facility] (DEFAULT) [address] [place] [address] 13474 Iron Levelon 07-15-2023 Iron [Mass/Vol] 114.0 ug/dL Normal 45.0-182.0 [facility] [place] Comment on above: Performed By: #### 1 [id number], 7569917, 9661276945, 3605952, 9412381, 7527523, 5164936, 0228288 #### [facility] (DEFAULT) [address] [place] [address] 98148 LDHon 07-15-2023 LDH 257.0 IU/L High 98.0-192.0 [facility] [place] Comment on above: Performed By: #### 1 [id number], 0640851, 4163774322, 9751031, 6296230, 3536887, 5990728, 8001758 #### [facility] (DEFAULT) [address] [place] [address] 28866 Lipid Panel Standardon 07-15 Cholesterol [Mass/Vol] 188.0 mg/dL Normal 66.0-200.0 [facility] [place] Comment on above: Performed By: #### 1 419486285, 8737513, 3130656803, 9714484, 5627012, 8463926, 6244774, 3913666 #### [facility] (DEFAULT) [address] [place] [address] 08074 Cholesterol in HDL [Mass/Vol] 45 mg/dL Normal 40-71 [facility] [place] Comment on above: Performed By: #### 1 [id number], 3584573, 4348707158, 1355720, 7688370, 7297701, 2466683, 0025548 #### [facility] (DEFAULT) [address] [place] [address] 61331 Triglyceride [Mass/Vol] 130.0 mg/dL Normal 0.0-150.0 [facility] [place] Comment on above: Performed By: #### 1 [id number], 4158752, 9285223735, 3560598, 5826202, 1172918, 2739439, 7114796 #### [facility] (DEFAULT) [address] [place] [address] 67603 Cholesterol in LDL [Mass/Vol] 117 mg/dL High 1-100 [facility] [place] Comment on above: Performed By: #### 1 [id number], 3254727, 4400494415, 3217789, 6799781, 3694511, 7849033, 5521269 #### [facility] (DEFAULT) [address] [place] [address] 40134 Cholesterol.total /Cholesterol in HDL [Mass ratio] 4.1 {ratio} Normal 0.0-4.5 [facility] [place] Comment on above: Performed By: #### 1 [id number], 0154895, 3658029610, 8793404, 6823419, 4143988, 4049952, 2455774 #### [facility] (DEFAULT) [address] [place] [address] VLDL. 26 mg/dL Normal 5-40 [facility] [place] Comment on above: Performed By: #### 1 [id number], 9096177, 3163583221, 4542082, 7584733, 8257823, 5679923, 0134959 #### [facility] (DEFAULT) [address] [place] [address] PSA Screenon 07-15-2023 PSA Screen 5.97 ng/mL High 0.00-4.00 [facility] [place] Comment on above: Result Comment: [employer] Clinical System (Chemiluminescence) Values obtained with different assay methods or kits cannot be used interchangeably. Results cannot be interpreted as absolute evidence of the presence or absence of malignant disease. Performed By: #### 1 [id number], 3748446, 7497950486, 4004463, 2951575, 4183331, 5702933, 1310489 #### [facility] (DEFAULT) [address] [place] [address] Phoson 07-15-2023 Phosphate [Mass/Vol] 3.2 mg/dL Normal 2.5-4.6 [facility] [place] Comment on above: Performed By: #### 1 [id number], 7625644, 8363449186, 1020458, 7345839, 8234921, 3815712, 7319753 #### [facility] (DEFAULT) [address] [place] [address] 63485 Uric Acidon 07-15-2023 Urate [Mass/Vol] 6.0 mg/dL Normal 4.8-8.7 [facility] [facility] [place] Comment on above: Performed By: #### 1 [id number] #### [facility] (DEFAULT) [address] [place] [id number] Encounters Encounter Date Encounter Type Care Provider Facility Start: 09-03-2023 End: 09-08-2023 ambulatory [facility] Facility:[facility] [place] Start: 09-02-2023 End: 09-03-2023 ambulatory Eli Santos Facility:[facility] [place] Start: 08-16-2023 End: 08-16-2023 ambulatory MISSAEL TEJADA [facility] Start: 07-20-2023 End: 07-21-2023 ambulatory Dev Ch Facility:[facility] [place] Start: 12-01-2022 ambulatory JAIR CARPENTER Facilit y:H1 Start: 07-16-2022 ambulatory ROS CM Faci lity:H1 Start: 01-28-2022 ambulatory ROS CM Faci lity:H1 Start: 08-28-2017 End: 08-28-2017 Emergency department patient visit DEV CH [facility] Start: 03-02-2017 End: 03-03-2017 Ambulatory DEFAULT PHYSICIAN Facility:[facility] Payers Date Payer Category Payer Unknown [id number] 1965 Unknown [id number] 2.16.84 [id number] 1965 Unknown [id number] 2.16.84 [id number] 1965 Unknown [id number] 2.16.84 [id number] 1967 Unknown [id number] 2.16.8 [id number] 1967 Unknown [id number] 2.16.8 [id number] 1967 Unknown [id number] 2.16.8 [id number] 1959 Unknown [id number] Unknown Summary Purpose Family History No Family [...] section and content) DATE CREATED AUTHOR 03/15/2018 [facility] DATE CREATED AUTHOR AUTHOR'S ORGANIZ ATION 03/16/2018 [facility] DATE CREATED AUTHOR AUTHOR'S ORGANIZ ATION 11/28/2022 [facility] DATE CREATED AUTHOR AUTHOR'S ORGANIZ ATION 09/17/2023 [facility] DATE CREATED AUTHOR AUTHOR'S ORGANIZ ATION 09/21/2023 [facility] FOR RECORDS PERTAINING TO [...] BE BASED ON THE PRIMARY CLINICAL RECORDS. [employer] provides no warranty or guarantee of the accuracy or completeness of information in this document.
== END 2023-12-16 09:11 | disposition home or self-care (01) ==
LOC: EC 09:10
PROVIDERS: PCP Family Medicine; Visit Provider Physician Assistant
DX: M19.071 Primary osteoarthritis, right ankle and foot (principal); M93.271 Osteochondritis dissecans, right ankle and joints of right foot; Z96.698 Presence of other orthopedic joint implants
CPT/HCPCS: 73610; 73630

== ENCOUNTER 2023-12-16 10:05 | Inpatient (IN) | payer OTHER, SELFPAY ==
[2023-12-16 10:08] VITALS: BP 159/93; PULSE 84; RESP 20; TEMP 36.6; O2SAT 98; BMI 34.2
--- NOTE | 2023-12-16 10:25 | PC.NURSE ---
PATIENT REFERRED TO ER BY PCP FOR ADMISSION FOR RIGHT ANKLE WOUND THAT WILL NEED IV ANTIBIOTICS AND POSSIBLE SURGERY. PT HAS HX OF RINKLE ANKLE SURGERY/REPAIR IN AUGUST 2023 AND THEN HAD AN INFECTION IN SEPTEMBER 2023. PT ABLE TO BEAR WEIGHT TO RIGHT ANKLE WITH WALKING BOOT
--- NOTE | 2023-12-16 10:28 | ED.WOUNDLAC1 ---
HPI - Wound/Laceration General Chief Complaint: Wound/Laceration Stated Complaint: LOWER EXTREMITY PAIN L ANKLE Time Seen by Provider: 12/16/23 10:23 Source: patient Mode of arrival: walk-in Limitations: no limitations History of Present Illness HPI narrative: [id number] male presents right anterior ankle abscess. 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 He had an x-ray earlier today and the abscess was aspirated earlier today as well. No fever or vomiting and he is not having much pain. He had talar replacement in August, about 3 months ago. Related Data Home Medications ?Medication ?Instructions ?Recorded ?Confirmed allopurinol 100 mg tablet 100 mg PO DAILY 08/25/23 10/16/23 lisinopril 20 1 tab PO DAILY 08/25/23 10/16/23 mg-hydrochlorothiazide 25 mg tablet metoprolol succinate 50 mg 50 mg PO DAILY 08/25/23 10/16/23 tablet,extended release 24 hr pitavastatin calcium 4 mg tablet 4 mg PO DAILY 08/25/23 10/16/23 hzksqirvxv-nmygrsuwjumct-bsdbexpc 2 tab PO Q6H PRN pain 10/17/23 10/17/23 50 mg-325 mg-40 mg tablet Previous Rx's ?Medication ?Instructions ?Recorded aspirin 81 mg tablet,delayed 81 mg PO BID 30 days #60 tabs 09/10/23 release (Adult Low Dose Aspirin) cholecalciferol (vitamin D3) 125 125 mcg PO DAILY 90 days #90 caps 09/10/23 mcg (5,000 unit) capsule ondansetron 4 mg disintegrating 4 mg PO Q8H PRN nausea and 09/10/23 tablet vomiting 5 days #15 tabs oxycodone-acetaminophen 5 mg-325 1 tab PO Q6H PRN pain 7 days #28 09/10/23 mg tablet (Percocet) tabs Allergies Allergy/AdvReac Type Severity Reaction Status Date / Time cephalexin [From Keflex] Allergy Hives Verified 08/25/23 14:54 Review of Systems ROS Narrative A ten point review of systems is negative except as noted above. [facility] Medical History (Updated 12/16/23 @ 11:14 by Ben Medrano MD) Arthritis of right ankle ?M19.071 - Primary osteoarthritis, right ankle and foot (ICD-10) Impingement of right ankle joint ?M25.871 - Other specified joint disorders, right ankle and foot (ICD-10) Osteochondritis dissecans ?M93.20 - Osteochondritis dissecans of unspecified site (ICD-10) Ankle arthritis ?M19.079 - Primary osteoarthritis, unspecified ankle and foot (ICD-10) Migraine ?G43.909 - Migraine, unspecified, not intractable, without status migrainosus (ICD-10) Elevated PSA ?R97.20 - Elevated prostate specific antigen [PSA] (ICD-10) Kidney stones ?N20.0 - Calculus of kidney (ICD-10) High cholesterol ?E78.00 - Pure hypercholesterolemia, unspecified (ICD-10) Hypertension ?I10 - Essential (primary) hypertension (ICD-10) S/P extracorporeal shock wave therapy ?Z98.890 - Other specified postprocedural states (ICD-10) Prostate cancer (08/2023) ?C61 - Malignant neoplasm of prostate (ICD-10) Surgical History S/P surgical manipulation of ankle joint ?Z98.890 - Other specified postprocedural states (ICD-10) Hx of prostate biopsy (~08/16/23) ?Z98.890 - Other specified postprocedural states (ICD-10) History of colonoscopy ?Z98.890 - Other specified postprocedural states (ICD-10) History of foot surgery ?Z98.890 - Other specified postprocedural states (ICD-10) History of ankle surgery ?Z98.890 - Other specified postprocedural states (ICD-10) Family History Other Family history of hypertension Family history of stroke Social History Within the past year, how often did you have a drink containing alcohol: 2-3 times a week Smoking status: Never smoker Non-prescribed substance use: denies use 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 General: The patient appears well and in no apparent distress. Patient is resting comfortably on cart. Skin: Warm, dry, no pallor noted. There is no rash noted. Head: Normocephalic, atraumatic Eye: Normal conjunctiva, no drainage Ears, Nose, Mouth, and Throat: oral mucosa is moist. Nares patent. Cardiovascular: Regular Rate and Rhythm Respiratory: Patient is in no distress, no accessory muscle use, lungs are clear to auscultation, no wheezing, rales or rhonchi Back: non-tender GI: Soft and nontender Musculoskeletal: The anterior right ankle has erythema and swelling. Neurological: A&O, normal speech Psychiatric: Cooperative Constitutional Vital Signs, click to edit/add: Last Vital Signs Temp 97.9 F 12/16/23 10:08 Pulse 84 12/16/23 10:08 Resp 20 12/16/23 10:08 BP 159/93 H 12/16/23 10:08 Pulse Ox 98 12/16/23 10:08 O2 Del Method Room Air 12/16/23 10:08 Course Vital Signs Vital signs: Vital Signs Temperature 97.9 F 12/16/23 10:08 Pulse Rate 84 12/16/23 10:08 Respiratory Rate 20 12/16/23 10:08 Blood Pressure 159/93 H 12/16/23 10:08 Pulse Oximetry 98 12/16/23 10:08 Oxygen Delivery Method Room Air 12/16/23 10:08 Temperature 97.9 F 12/16/23 10:08 Pulse Rate 84 12/16/23 10:08 Respiratory Rate 20 12/16/23 10:08 Blood Pressure 159/93 H 12/16/23 10:08 Pulse Oximetry 98 12/16/23 10:08 Oxygen Delivery Method Room Air 12/16/23 10:08 MDM - Wound/Laceration MDM Narrative Medical decision making narrative: Blood work is nonspecific. X-ray shows soft tissue swelling and the patient was given IV vancomycin and is being admitted for probable surgery tomorrow. Findings were discussed with the patient. Differential Diagnosis Differential diagnosis: Likely abscess and other (Cellulitis) Lab Data Attestation: I reviewed the patient's lab results. Labs: Lab Results 03/28/24 Range/Units 10:21 WBC 5.2 (4.0-11.0) 10^3/uL RBC 4.35 L (4.70-6.10) 10^6/uL Hgb 13.0 L (14.0-18.0) g/dL Hct 39.7 L (42.0-54.0) % MCV 91.3 (80.0-94.0) fL MCH 29.9 (25.9-34.0) pg MCHC 32.7 (29.9-35.2) g/dL RDW 14.8 (11.0-15.0) % Plt Count 202 (150-450) 10^3/uL MPV 10.1 (9.5-13.5) fL Neut % (Auto) 57.9 (43.0-75.0) % Lymph % (Auto) 24.2 (20.5-60.0) % Davis % (Auto) 14.0 H (1.7-12.0) % Eos % (Auto) 2.7 (0.9-7.0) % Baso % (Auto) 0.8 (0.2-2.0) % Neut # (Auto) 3.0 (1.4-6.5) 10^3/uL Lymph # (Auto) 1.3 (1.2-3.8) 10^3/uL Davis # (Auto) 0.7 (0.3-0.8) 10^3/uL Eos # (Auto) 0.1 (0.0-0.7) 10^3/uL Baso # (Auto) 0.0 (0.0-0.1) 10^3/uL Abs Immat Gran (auto) 0.02 (0.00-0.03) 10^3/uL Imm/Tot Granulo (auto) 0.4 (0.0-0.5) % ESR 40 H (<=20) mm/hr Sodium 141 (136-145) mmol/L Potassium 3.4 L (3.5-5.1) mmol/L Chloride 102 (98-107) mmol/L Carbon Dioxide 29.0 (21.0-32.0) mmol/L Anion Gap 13.4 BUN 17.0 (7.0-18.0) mg/dL Creatinine 1.13 (0.70-1.30) mg/dL Est GFR ( Amer) >60 (>=60) Est GFR (Non-Af Amer) >60 (>=60) BUN/Creatinine Ratio 15.0 Glucose 75 (74-106) mg/dL Calcium 9.3 (8.5-10.1) mg/dL C-Reactive Protein 5.58 H (<=0.50) mg/dL Imaging Data Foot and ankle x-rays: Radiologist's impression: Soft tissue swelling Discharge Plan Discharge Chief Complaint: Wound/Laceration Clinical Impression: Abscess of ankle Patient Disposition: Admitted As Inpatient Time of Disposition Decision: 11:14 Condition: Good
[2023-12-16 10:56] LABS: Basophils Percent Auto 0.8 % (0.2-2.0); Eosinophils Absolute Auto 0.1 10^3/uL (0.0-0.7); Eosinophils Percent Auto 2.7 % (0.9-7.0); Hematocrit 39.7 % (42.0-54.0); Immature Granulocytes Abs Auto 0.02 10^3/uL (0.00-0.03); Immature Granulocytes Pct Auto 0.4 % (0.0-0.5); Lymphocytes Absolute Auto 1.3 10^3/uL (1.2-3.8); Lymphocytes Percent Auto 24.2 % (20.5-60.0); Mean Corpuscular HGB Conc 32.7 g/dL (29.9-35.2); Mean Corpuscular Hemoglobin 29.9 pg (25.9-34.0); Mean Corpuscular Volume 91.3 fL (80.0-94.0); Mean Platelet Volume 10.1 fL (9.5-13.5); Monocytes Absolute Auto 0.7 10^3/uL (0.3-0.8); Neutrophils Percent Auto 57.9 % (43.0-75.0); Platelet Count 202 10^3/uL (150-450); Red Blood Count 4.35 10^6/uL (4.70-6.10); Red Cell Distribution Width 14.8 % (11.0-15.0); White Blood Count 5.2 10^3/uL (4.0-11.0)
[2023-12-16 11:08] LABS: Erythrocyte Sedimentation Rate 40 mm/hr (<=20)
[2023-12-16 11:11] LABS: Anion Gap 13.4; C Reactive Protein 5.58 mg/dL (<=0.50); Calcium 9.3 mg/dL (8.5-10.1); Chloride 102 mmol/L (98-107); Estimated GFR (African America >60 (>=60); Estimated GFR (Non-African Ame >60 (>=60); Glucose 75 mg/dL (74-106); Potassium 3.4 mmol/L (3.5-5.1); Sodium 141 mmol/L (136-145)
[2023-12-16] MEDS: VANCOMYCIN HCL 1,500 MG in 0.9 % SODIUM CHLORIDE 500 ML 250 MG IV (11:42)
[2023-12-16 12:15] VITALS: BP 158/83; PULSE 76; TEMP 36.7; O2SAT 93; BMI 34.9
--- NOTE | 2023-12-16 12:52 | P.HP_ITS ---
<Statement entered by Sadaf Yost DO - 12/17/23 07:48> This documentation has been reviewed and approved. I have also seen and evaluated patient at the time of admission and agree with getting CT imaging of the ankle and further plan of care. HPI H&P: HPI History of Present Illness Chief complaint: LOWER EXTREMITY PAIN L ANKLE Narrative: 12/16/23 1230 This is a 58-year-old male patient with a past medical history as outlined below including osteoarthritis, gout, and hypertension; who presented to the ED directly from Dr Caldera's office today complaining of right ankle swelling and pain. The patient had a right colectomy and total talus replacement per Dr Caldera on 09/10/2023. He unfortunately suffered a postoperative infection late in September and was again admitted to the hospital for IV antibiotics and surgical I&D. Wound was healed by secondary intention with wound VAC. The patient was recently released to full weightbearing status by Dr Caldera about 10 days ago. He reports onset of mild heel tenderness about 7 days ago and significant pain and swelling of the right ankle for the last 3 days. He presented to Dr Caldera's office today for evaluation and he was sent to the ED for evaluation and admission for IV antibiotics. Workup in the ED revealed stable vital signs without fevers, no leukocytosis, but elevated inflammatory markers (ESR 40, CRP 5.58). The patient is being admitted to the hospitalist service in observation for IV antibiotics and planned surgical I&D tomorrow. At the time of my exam the patient is resting comfortably in bed. He denies any constitutional symptoms including no fevers, N/V/D, chest pain, shortness of breath, or any other acute complaint. As noted above he is complaining of significant right ankle pain and swelling for the last 3 days. The joint was aspirated in the Dr Caldera's office and the fluid has been sent for cultures which are pending. The patient will be made n.p.o. at midnight pending operative intervention in the morning. IV linezolid has been initiated per the previous wound cultures from September. Opioid HPI Opioid Management Most Recent Opioid Data: Last Pain Scale 8 10/22/23 15:00 Last Pain Assessment 10/22/23 15:00 Last ORT Total Score 0 12/16/23 12:15 Last ORT Risk Category Low Risk 12/16/23 12:15 Review of Systems ROS Status of ROS 10 or more systems reviewed and unremark able except as noted in history and below PFSH PFSH Medical History (Updated 12/16/23 @ 13:03 by Anita Davis NP) Gout ?M10.9 - Gout, unspecified (ICD-10) Abscess of ankle ?L02.419 - Cutaneous abscess of limb, unspecified (ICD-10) Arthritis of right ankle ?M19.071 - Primary osteoarthritis, right ankle and foot (ICD-10) Impingement of right ankle joint ?M25.871 - Other specified joint disorders, right ankle and foot (ICD-10) Osteochondritis dissecans ?M93.20 - Osteochondritis dissecans of unspecified site (ICD-10) Ankle arthritis ?M19.079 - Primary osteoarthritis, unspecified ankle and foot (ICD-10) Migraine ?G43.909 - Migraine, unspecified, not intractable, without status migrainosus (ICD-10) Elevated PSA ?R97.20 - Elevated prostate specific antigen [PSA] (ICD-10) Kidney stones ?N20.0 - Calculus of kidney (ICD-10) High cholesterol ?E78.00 - Pure hypercholesterolemia, unspecified (ICD-10) Hypertension ?I10 - Essential (primary) hypertension (ICD-10) S/P extracorporeal shock wave therapy ?Z98.890 - Other specified postprocedural states (ICD-10) Prostate cancer (08/2023) ?C61 - Malignant neoplasm of prostate (ICD-10) Surgical History S/P surgical manipulation of ankle joint ?Z98.890 - Other specified postprocedural states (ICD-10) Hx of prostate biopsy (~08/16/23) ?Z98.890 - Other specified postprocedural states (ICD-10) History of colonoscopy ?Z98.890 - Other specified postprocedural states (ICD-10) History of foot surgery ?Z98.890 - Other specified postprocedural states (ICD-10) History of ankle surgery ?Z98.890 - Other specified postprocedural states (ICD-10) Family History (Updated 12/16/23 @ 12:05 by Nereida Mederos) Other Family history of hypertension Family history of stroke Social History (Updated 12/16/23 @ 12:07 by Nereida Mederos) Within the past year, how often did you have a drink containing alcohol: 2-3 times a week Within the past year, how many standard drinks containing alcohol did you have on a typical day: 1 or 2 Within the past year, how often did you have six or more drinks on one occasion: never Total score: 0 Score interpretation: A score less than 4 is consistent with normal alcohol consumption. 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 or athletic groups, or school groups: no Total score: 3 Score interpretation: A score of greater than or equal to 2 indicates the lowest level of social isolation. Little interest or pleasure in doing things: not at all Feeling down, depressed, or hopeless: not at all Feel stressed/tense/nervous/anxious/difficulty sleeping: not at all Do you think of yourself as: straight/heterosexual Gender Identity: male Meds Home Medications and Allergies Home Medications ?Medication ?Instructions ?Recorded ?Confirmed ?Type allopurinol 100 mg tablet 100 mg PO DAILY 08/25/23 12/16/23 History lisinopril 20 1 tab PO DAILY 08/25/23 12/16/23 History mg-hydrochlorothiazide 25 mg tablet metoprolol succinate 50 mg 50 mg PO DAILY 08/25/23 12/16/23 History tablet,extended release 24 hr pitavastatin calcium 4 mg tablet 4 mg PO DAILY 08/25/23 12/16/23 History cholecalciferol (vitamin D3) 125 125 mcg PO DAILY 90 days #90 caps 09/10/23 12/16/23 Rx mcg (5,000 unit) capsule swhrmcfxvb-vdcwrbvchkgia-xwoifuqa 2 tab PO Q6H PRN pain 10/17/23 12/16/23 History 50 mg-325 mg-40 mg tablet acetaminophen 500 mg tablet 1,000 mg PO Q6H PRN fever or pain 12/16/23 12/16/23 History (Acetaminophen Extra Strength) aspirin 325 mg tablet 325 mg PO BID 12/16/23 12/16/23 History hydrocodone 5 mg-acetaminophen 325 2 tab PO Q8H PRN pain 12/16/23 12/16/23 History mg tablet Allergies Allergy/AdvReac Type Severity Reaction Status Date / Time cephalexin [From Keflex] Allergy Hives Verified 08/25/23 14:54 Exam Constitutional Vital Signs, click to edit/add: Last Vital Signs Temp 97.9 F 12/16/23 10:08 Pulse 84 12/16/23 10:08 BP 159/93 H 12/16/23 10:08 Pulse Ox 98 12/16/23 10:08 O2 Del Method Room Air 12/16/23 10:08 Common normals: no apparent distress, oriented x3, alert and well nourished General appearance: cooperative Orientation/consciousness: Yes awake HENMT Common normals: normocephalic, head/scalp atraumatic, hearing grossly normal bilaterally, external nose normal and moist oral mucous membranes Eye Common normals: PERRL, EOMs intact bilaterally, conjunctivae normal and no scleral icterus Alignment: alignment normal Eyelid: eyelids normal Neck & C-Spine Common normals: full ROM, supple and no JVD Chest Common normals: inspection of chest normal Chest: symmetrical chest wall rise Respiratory Common normals: normal respiratory effort, no retractions, no use of accessory muscles and clear to auscultation bilaterally Effort & inspection: able to speak in complete sentences Cardio Common normals: no JVD, regular rate, regular rhythm, S1 normal heart sound, S2 normal heart sound, no gallops, no clicks, no murmurs, no rub and peripheral pulses 2+ throughout GI Common normals: Normal to inspection, nondistended, normoactive bowel sounds present, soft to palpation, non-tender, no hepatosplenomegaly, no masses and no bruits Bladder/kidney exam: bladder normal to palpation Back & Pelvis Common normals: thoracic and lumbar spine normal to inspection Extremity Common normals: normal capillary refill General: normal exam except as noted; no clubbing and no cyanosis Right lower extremity: ankle joint (Swelling, mild anterior erythema, tenderness) Neuro [place] Coma Scale: GCS not evaluated Common normals: CN's II-XII intact bilaterally, moves all extremities, no focal motor deficits and no sensory deficits noted Speech: speech normal Motor exam: strength 5/5 throughout Psych Common normals: mental status grossly normal, thought process normal, affect normal and activity/motor behavior normal Results Labs Labs: Short CBC 12/16/23 Range/Units 10:21 WBC 5.2 (4.0-11.0) 10^3/uL Hgb 13.0 L (14.0-18.0) g/dL Hct 39.7 L (42.0-54.0) % Plt Count 202 (150-450) 10^3/uL BMP 12/16/23 10:21 Sodium 141 Potassium 3.4 L Chloride 102 Carbon Dioxide 29.0 BUN 17.0 Creatinine 1.13 Glucose 75 Calcium 9.3 Pulse Oximetry Attestation: I have reviewed the pertinent pulse oximetry results. Assessment and Plan Assessment and Plan (1) Septic joint: Assessment and Plan: Acute (Suspected) * Adm obs * IVPB Linezolid per previous wound culture C&S * Previously treated with Vancomycin - equally susceptible to either antibiotic, but may have developed some resistance to vancomycin * Joint aspirated at [facility] - Gram stain, C&S pending * Consult Podiatry - we appreciate Dr Caldera's assistance with this pt's care * NPO at midnight for surgical I&D in AM * No clinical concern for systemic sepsis at this time * Home [place] and IVP Toradol PRN for pain * CBC, CMP, ESR, CRP daily Qualifiers: Septic arthritis location: ankle Septic arthritis organism: due to unspecified organism Laterality: right Qualified Code(s): M00.9 - Pyogenic arthritis, unspecified (2) Hypertension: Assessment and Plan: Chronic * Continue home lisinopril-HCTZ, metoprolol Qualifiers: Hypertension type: primary hypertension Qualified Code(s): I10 - [place] tial (primary) hypertension (3) High cholesterol: Assessment and Plan: Chronic * Continue home statin (4) Gout: Assessment and Plan: Chronic * Continue home allopurinol * Add uric acid on to ED labs
[2023-12-16 13:33] LABS: Uric Acid 6.4 mg/dL (3.5-7.2)
[2023-12-16] MEDS: LINEZOLID IN DEXTROSE 5% 600 MG/300 ML PIGGYBACK 300 MG IV (14:07)
[2023-12-16] MEDS: KETOROLAC TROMETHAMINE 30 MG/ML VIAL IVP ×2 (14:07→21:08)
[2023-12-16] MEDS: HYDROCODONE/ACET 5-325 MG TABLET 2 TAB PO ×2 (14:08→23:43)
[2023-12-16] MEDS: 0.9 % SODIUM CHLORIDE 250 ML 10 ML IV (14:17)
--- NOTE | 2023-12-16 15:08 | CT_ITS ---
The [address] [address] Patient Name: GURVINDER CHAUDHRY MRN: [id number] date: 1965 Sex: M Assigned Patient Location: [place] Current Patient Location: [place] Accession/Order Number: [id number] Exam Date: 12/16/2023 15:20 Report Date: 12/16/2023 15:54 At the request of: CHAPO MURILLO Procedure: CT ankle RT wo con EXAMINATION: CT ankle RT wo con HISTORY: Swelling, pain. ?? septic joint COMPARISON: No relevant comparison available. TECHNIQUE: Multi-planar CT images were created without IV contrast. Dose reduction techniques were achieved by using automated exposure control and/or adjustment of mA and/or kV according to patient size and/or use of iterative reconstruction technique. FINDINGS: BONES: Total talus replacement. No acute fracture, dislocation or mechanical failure. Anatomic alignment is noted. Mild enthesopathic spurring of the calcaneus at the Achilles and plantar insertions. SOFT TISSUES: Moderate diffuse soft tissue swelling. There is focal fluid collection measuring 3.5 x 2 cm on axial image 47 measuring 5 cm in craniocaudal extent, sagittal image 57, centered on the tibialis anterior tendon extending and likely including portions of the extensor hallucis longus tendon. Singler 3 mm focus of air within this fluid collection best seen on sagittal image 51 EFFUSION: Ankle joint effusion cannot be excluded due to streak artifact from the talus replacement OTHER: Negative. CT/CT ankle RT wo con IMPRESSION: Anterior fluid collection with a single focus of air centered along the anterior tibialis tendon. The differential diagnosis would include inflammatory versus pyogenic tenosynovitis. Infection should be considered in light of the single focus of free air. Electronically authenticated by: JOSIE DICKSON Date: 12/16/2023 15:54
--- NOTE | 2023-12-16 15:28 | SWNOTE1 ---
SW met with pt to discuss dc needs. Pt lives at home with his . He was sent by podiatry and having an I&D tomorrow morning. He just finished his oral vanco about a week ago. He also has been allowed to hear weight for about a week-2 weeks. He voiced he may have over done it. Pt does have knee scooter, walker, crutches at home. Pt does not have home health. He has had several surgeries and he voices he has everything he needs at home and has no discharge concerns or needs at this time. Pt is getting ready to go down for a CT scan.
[2023-12-16 19:35] VITALS: BP 127/73; PULSE 84; TEMP 36.9; O2SAT 96
[2023-12-16] MEDS: ATORVASTATIN CALCIUM 20 MG TABLET PO (21:08)
[2023-12-16 23:32] VITALS: BP 136/77; PULSE 75; TEMP 36.8; O2SAT 93
[2023-12-16] MEDS: LACTATED RINGER'S SOLUTION 1,000 ML 125 ML IV (23:40)
[2023-12-17] VITALS (22 sets, daily range): BP systolic 120–153; BP diastolic 64–92; PULSE 71–113; TEMP 36.4–37.2; O2SAT 88–97; BMI 34.9
[2023-12-17] MEDS: LINEZOLID IN DEXTROSE 5% 600 MG/300 ML PIGGYBACK 300 MG IV ×2 (02:39→13:52)
[2023-12-17 05:07] LABS: Basophils Percent Auto 0.9 % (0.2-2.0); Eosinophils Absolute Auto 0.1 10^3/uL (0.0-0.7); Eosinophils Percent Auto 3.1 % (0.9-7.0); Hematocrit 33.6 % (42.0-54.0); Immature Granulocytes Abs Auto 0.01 10^3/uL (0.00-0.03); Immature Granulocytes Pct Auto 0.3 % (0.0-0.5); Lymphocytes Absolute Auto 1.2 10^3/uL (1.2-3.8); Lymphocytes Percent Auto 38.4 % (20.5-60.0); Mean Corpuscular HGB Conc 32.7 g/dL (29.9-35.2); Mean Corpuscular Hemoglobin 29.7 pg (25.9-34.0); Mean Corpuscular Volume 90.8 fL (80.0-94.0); Mean Platelet Volume 10.1 fL (9.5-13.5); Monocytes Absolute Auto 0.5 10^3/uL (0.3-0.8); Monocytes Percent Auto 14.5 % (1.7-12.0); Neutrophils Absolute Auto 1.4 10^3/uL (1.4-6.5); Neutrophils Percent Auto 42.8 % (43.0-75.0); Platelet Count 173 10^3/uL (150-450); Red Cell Distribution Width 14.7 % (11.0-15.0); White Blood Count 3.2 10^3/uL (4.0-11.0)
[2023-12-17 06:28] LABS: Erythrocyte Sedimentation Rate 36 mm/hr (<=20)
[2023-12-17 06:32] LABS: C Reactive Protein 3.57 mg/dL (<=0.50)
[2023-12-17 06:37] LABS: Alanine Aminotransferase 41 U/L (16-63); Albumin Globulin Ratio 0.9; Albumin Level 2.9 g/dL (3.4-5.0); Alkaline Phosphatase 50 U/L (46-116); Anion Gap 14.3; Aspartate Amino Transferase 24 U/L (15-37); BUN Creatinine Ratio 14.3; Bilirubin Total 0.3 mg/dL (0.2-1.0); Calcium 8.6 mg/dL (8.5-10.1); Carbon Dioxide 27.2 mmol/L (21.0-32.0); Chloride 102 mmol/L (98-107); Estimated GFR (African America >60 (>=60); Estimated GFR (Non-African Ame >60 (>=60); Globulin 3.2 g/dL; Glucose 109 mg/dL (74-106); Potassium 3.5 mmol/L (3.5-5.1); Sodium 140 mmol/L (136-145); Total Protein 6.1 g/dL (6.4-8.2)
[2023-12-17 07:26] LABS: Glucometer 86 mg/dL (74-106)
--- OUTSIDE RECORDS SUMMARY | 2023-12-17 09:20 | XMS_ITS | CCD ---
Author Organization [facility] Care Team Providers Care Accounting File Clerk Name Role Phone DEV CH Unavailable Unavailable QUIN ROBISON Unavailable Unavailabl e PHYSICIAN, DEFAULT Unavailable Unavailable PHYSICIAN, DEFAULT Unavailable Unavailable DEV CH Unavailable Unavailable ROS CM Admitting Unavailable ELIZABETHANDER, ROS mSith Attending Unavailable TOI, ROS Smith Consulting Unavailable ROS CM Admitting Unavailable ROS CM Attending Unavailable JAIR CARPENTER Admitting Unavailable JAIR CARPENTER Attending Unavailable MISSAEL TEJADA Admitting Unavailable MISSAEL TEJADA Attending Unavailable DEV CH Primary Care Unavailable Dev Ch Primary Care Unavailable lEi Santos Attending Unavailable EisensteinEli Admitting Unavailable EisensteinEli Attending Unavailable EisensteinEli Admitting Unavailable Dev Ch Primary Care Unavailable Dev Ch Primary Care Unavailable Allergies Allergy Classification Reported Allergen(s) Allergy Type Date of Onset Reaction(s) Facility (3 sources) cephalexin; Translations: [Keflex] Drug Allergy 09-20-2009 AOF [facility] Repository Problems Active Problems Problem Classification Problem [...] Coding Summaryon 09-16-2023 Coding Summary HTMLBase 64 MmcgsnqvDPh7vIe+PGhlYWQ+ IU5RIJGbJ97mzVCmtX6vH7DL TElOSywgQVBQTElOSyIgbmFt SP0ruXZkULPh IC8+ZO6iJILhGbuzgAKkd7L7 oYB8C21sjv8hVUdduZK4TMQy TvMlquado3baxUc8QOwyRurk OyBt CDOxtW77LFZ2cS61Ds41iHQz bSRmp6jhxKo8EvPgMEBmFFL2 xDwmTIaiy2QgBYXhC03vhQMh c2U6 UFXwwLbfjGJtNfGkoPO8kH8c VObciubym3ahimgmKhz7wc82 jGUia9V8pTJ4O8MeogP7NKVb bGQg XafvxCQFoU7ujgnjf6dhdfdi VcLsLWLsRNu6ZVs5PTEauLun LfVpVA57ZTP2BXYazeBkN6Cs LWFs mGebIpB5m6Q4Ju3VF4EUYtcd Z4SIZJIPSGixaDK+YB92ld08 V9AhKzxuIto5KAQgIXJ1aAG6 aD0n ITWtPEtyt6W1tJO2P0OxbgAl sz3wc1lcRCCaGXeiW45pnRRi v4G5NJYtvTL6IPBadXciWsFa aG93 Oyc+MDDbdStla7KuVpfly6hu r5urdMq5RmjnHKDpgqIenGuk UDT4i5OhUg6rUVGcdZU5gWP3 aD0i IyRkCiH0XCnwM515QjEoaVYg ZlgnT72pP6QphMH+PHRyPjx0 WJCcgFywPS3dY5WuGPTkhqxc bGVm hVgoZO0dSYHczahzCTIlzD3u KSHaA4t3VkLpZzL2RPblH4Jh HEPlotrdCy21hS4dEiMwGyP7 MGlu Q8MqhkZ8LFWvqZUvTGvdDLF0 K91qw1L1AEKlVKNbBND6nLL8 fA1kcJfnbvpaxSAbfKfcghDz dGlj AUztFIzkA010AFEyuSmzZlFm ZGluZyBEYXRlOiAgMTIvMjgv MjAyMzwvdGQ+WKDjGYS3yZkz PSAn bTPzIDphKw4gxWvkfLocFL8s BNLezbvaOYYamD4aHXKxdEIs yCqlTE1kGEFmrrwfq360HnUt MHB0 GDNotIEwO5RdsV0wYnNoWFHn EKZsI9FpbRTgRUdlY408TRam VvP1HXCsdtKuO8GuMBGqgUxq OiB0 q1O9Lj6Fv9IsdpqiA4RsiYGl JwWdRhrqICk8W6KoVfvdqHC+ MG07MXOfDV49LMl8JAS7nGwq PSdi MDXyU5SbbT7fGaRfOXGvBMLk Oyc+PHRhYmxlIHdpZHRoPScx RXNlTnBdpCciCB9vDn2mQZQl LWNv qBpmnVZmNsPxv9siDIUzGVtv EY8uiNmpP1RdsEY5BIVeo3o5 Hp53S25hR3ImvJC+PGNvbCB3 aWR0 wS3hMtUpGtB4FMhtV301QmKr tNZmSxdgy6fay8yjvOg2HjS2 EDIaufBmhOfoRVQ8y7UuFj63 Y29s IHdpZHRoPSIxNSUiIHZhbGln zb2dcP6nJs3+EYOkuMD7sVC2 cY3mWtXfEfI5GOtdK787IkVe cCIv Ieyuk8dny7bwmZf4XhVbPUCt jsBnyXrpIWL3c9NfAa82L8Lt lArvd5MyKkg6uq94bJUsf0V5 bGU9 Q7KcHWTuxdjfoBUmaBihVV1x ADLixzthMBDswO4hYFCkC7q4 FzNnWbK2PWncG2ErmcM8TWDe bGQg JUTvsTSQdY4zqifrt9xuudyr MlHmWHUkTQv6XOp5FVLgxRfs PwVkNMD9VrH3YKY8wLLhxK2q bGln dagqkJ1iOcb+HFV6xWDarJUR VL5aGjuaeCK+XHQjUHL2tKnh LZnhJSOmzZ1aOEHjW2p2LhMg LjA1 SGpwS4TkknS0OOWczMVsOCYp wQUZsC0ojbzbr7cbupwsHwOr VBCkISn8IVc2PSXclJovNoVm ZWZ0 GnW8MCT2bQQcaS0vdNndyvpr mF6pKdg+XmfxsDewWPA1BBv7 H3QlWxa0EZJvtQfzCA8rsQVb ZGlu On0bmDvtjKegKF9vFHAodsnm b291XgLxl3lwXIDatUBtYFek HNA3R33vq3P6POItCZYfYLC8 dGV4 qN0ueYdwlorbpMMyvElybzTu pLylTGpfQBtoH585DYMbdAhg MqLaFEn7M6AiFsx4CXGwoFyk ZT0n nXRzKXutDf6ujXytnAnaGA8g JGLkhqdsy435TgZjs7heDFPk sSEuLNgcITJ8I15ob2B4PFDy MDAw GDJ3wVG8pF0yxSkmushvqCZf rPxpbwHuwEohCHfcLHbtG076 UZJvwFwaSzBfyNt2Y1GfFyu9 ZCBz yFjbSZ9puNDrWXccUb2ffIgb mZfaSR1mTJHpribyl341OdLb t5hfOTVmcZAeIIhpTXP2Z06a b3I6 AENsQKFdTKX6zGD1zS8zpFmp bjogbGVmdDsgdmVydGljYWwt EWlvA811MTIygLlxJmSgqPft bnQg JSpgCLs0B3ZqTeyvyZF+PC90 HUPwOD15mRUdxUAap5kgmQp3 JhTyIDHeCYK0aRayQAsrs7My ZXIt W23mfFEtc2J0PHFyaOorhFKh XtNtmKQ7eS1pRBlhrqizr8qv osrwIesog3gqzs22tC50L61u IHdp ZQWlLSZbABWqDSVbiGbssh2v bI9oKe9+WPZpxOY5hUN7xK6f OZNvLaB4CNdhL919GbRjsUTb Pjxj a7uwg5lucPl6WvQ9FVNyyzAn nUuuZVR9u2NbLc21M76rGNfx MWYaUNVzNSPyPSEyjKwwla9v dG9w Ii8+WUCtoQM1cQS5nN5bGyAx CgC9TFsbD010XvFotTEpEfrk Z44iX2LdrEN+MRZvYeb2SYJj dHls DI7fvFPfDHtpNl7gGUT0XfJe TiIhYVhhN5IrHJYczlcvlpht hAL0YIRzQVPbwF92Jk1hbAbt MTBw oPKCyY1ckekkt5olhsgmAuJn OWLqMCs4ETj0RBTjhEicFqTj RYH2JpI7KOQ9iCEdoZ2msQtq bjog hN2gO1YbVNLrrfbdWp71nD7m SqSnYnW5KKwmZeh+RFVSSVZB W8XiYDrPXmyiDAeKWL01V8Ai Pjx0 BJKmcQypRG3ipLQbWBwaKw8b gKkduMgkNF7kFZPfwbpyNGPj uJ3fFJJheTYibXhxSG5mDDHs bjtm g673OfVzCTJ5YRKtlTCaS0Ar qQ8tQeTeQNJoPPGgE1JerTRc WSnvQ869KUpqGaU9ZLErapYy Y2Fs BYHfsMjyRkI4r3R2Oh0iDG2b Zi0eGHI5HS45GK25aZMao5M0 zWF1N1UbGDPsyzfhheddlOU4 IDAu WBPjoE37aTFmDNtaDa9wz0U6 k763RIKtGLIkaN61Ul1vqRjq WMJiwLAFwV9lmwmlk5xtyhje IzAw HIZyOOj8NIt5KPMvxAkfOqWe LTN9HvJ0FLN9qTNbzX5ntYmr twmddP7pGco+NTYgWWVhcnM8 L3Rk Pcy1WRYgqFttAR5vaSHhEEdi Ji5wsDsbaLboML8sNPHxetpw TTXuwX8wSWMnzXRwrLdlQY6y NTBp ptroi977AjUtOXC1VRUpyCHf Y3FycU2yYjXiHORrXJWfW8Ii aTVtKHhnF707NXjoUqO0LUEl cnRp C8BgPZObrKmpWjM7n3H6Gq8R JQrRVZ39XH76qGQpe7T1oXQ7 X2ZvLJJytyaqhnqytMB6LWSl MDUw rW74kYZzZCrpHb9qe0U7k253 PNRdCFMgjM63Qc4vtNrzJBGb aFEPbX6kwikch3ywxgwbSqPc MDAw ICw2ROe6HGEgiZyfStZaBAJ7 ReN8RKH4jWQwcH5luRuanjis pQ5vOuh+Y9Y8mQW8aMFgnIJk biBh IEJlZDwvdGQ+IL80mf53B8Cl JsuqHbh8BHTyYVU9gZQ6eM0q FZYeAWrhi9W3uSC7O7XdwfTh ci1j c0hsPCYuOSriB63lvVYvz9C0 YJJxuYZ5KFMbtMfuIeDngE09 Oyc+JRHjyKijb6RaTknwp1rv d2lk dAs1JbXvTABuikXepAzkBAR5 h3IjHx44A14yVEjoRILwWXHt DREzWJBukDpunn6vbV7xKj0+ PGNv rTT9bTZ9xT3pMlKnQaK8UPjd H750OxLpfKYxKbnot7clu9of uLt1GlLaWSLhvoVvnAxeUKC3 b3Ai Qn93M5QdkTsup1OdJkb0cj47 iATxb9F8tKS7A5ZrPJDvwsqc yXHrjYlsZN8zOFNfoayeZQMe aW5n LDMyG5j4GcScAdS9KKdpA4Mq cjN1XCPlrAStWSCioFILdE7w orsom2lisginDlXuMVMsGXf8 ZXh0 SWRffFwzRtKqGFQ3UsD1WWD2 dCHmgO0lzTzfoqltiY3bYwp+ WXr9b3peoNJeXO5uhFC1DH07 ZD48 nODue9Q9kQX1H7YfXAAqsqjw ntfgxWC4LMAeXWTneG81Uy1d nYvsMf6kSRJyWFL0OQIcjBSe O2Nv kF4tZiViIEIxRRAhQ7UyxLSg CVwaQ120WBkuDkO4TAUpmiBa G5MdYBPduQmhXkJ1f1O8Yh7O SU46 AX47PY62zRQde0I6bPQ5M3Rc QPDylvkzxcdchJR3HYLkKRAp kU87Wq0ihLiuQi8uZSPtRCP0 IFRp iJMbE8XviU5zJvBoNRZxMHTu W9KbzCMaZVkwC734KJepBqS7 ZTZfssAlR9LwQDVdwZhhEiH5 b3A7 Me5OId09FR48WF43aYHul8W3 tAZ5Q7EuQHViznqbexkntMT4 LWXtWNSguC07Id9buKhbXz2t ZCAx LNX4VXXssMHhN9LtrM6sNtPy SLUeUTCaS2ThpVQhUVwhI494 QIboWfY0SBZdbcRwG6VbSROs aWdu PxT3f4S4Ok3TQYeitaf1S4Ur PjwvdHI+BM53PMQjYH95lOIr xDVhn2wxiSj1AwJvOEQgBYX0 eWxl PSd (more content not included)... [facility] Coding Summaryon 09-15-2023 Coding Summary HTMLBase 64 MxsglnewBUg2sVz+PGhlYWQ+ XC4RKNMnI39jgHMcmH6vO9XH TElOSywgQVBQTElOSyIgbmFt MX1okVKoLQZj IC8+LL9gQCIvQjsuwGTti1G2 hJX5B86nae6aXWdvnJQ3ATOn KsGefyhfk0iqzNd2POnsLvbs OyBt XTUkcI09WUP5oP21Xp81mLVv aGIvh3bqaRa4HmDtZSJiVDB0 fOpsKIedb3BvVDUcL94zpIGr c2U6 EATttAjgkOYcZsQqzSL3uJ7i NKvcmqwrx8fdgzjuVns2zx67 rEDsw9G3sVM7A5OfziE7DINh bGQg OavjiCVMjI6icfzng9gwqdgk HrGtQZJcOPz5AUr7GNGabGya WxBbMC61EFU5QILuxhPnS9Aj LWFs tUjbQwR0k6U0Xi0YS1AAXezr P9VQCRHKNSbfjAE+OB13zb17 X0VhYjzmBfe7PGFiZXY3pZY0 aD0n UVOcLHfjb5K9zLL2W1WbmaIp ig9ar8nxNVYfYQmoI55paQXu u6E1DXWmlGV4VXLavOdzBxLj aG93 Oyc+JEPfyChso7BzHsdhz5te b2ovoFk9BfweKPXymtTdvKvd DMM4m6HhAo8sZJDljVH1bHN2 aD0i KkAfMkI9USctU262GqUlkDSs XxerE69uX2PirNI+PHRyPjx0 PFNrxSwkMS7gL7ChHDBcucmd bGVm oIczFE0bFIZdwrciKAJugN6e MCUqS3d5XrKiBrD0BBemM7Fc DHJtzxvwEr07kJ4wZnMvOcJ3 MGlu M7HvorI1AHCqdXZtBCrjFHE6 M14ug7X8GPCzCXFeTNN9gHT5 cL3yaAjsbxbolTAloXrcsbEz dGlj LEnmUXguM639SQVyaEnwHePc ZGluZyBEYXRlOiAgMTIvMjcv MjAyMzwvdGQ+GYStZWZ5mRub PSAn aWSiCLimPm1alSibzAbdRY7g IIPosrttSFBqdJ9jRGKnqYVg aNxnJU3dDHIfgolfs695BhJc MHB0 OUQlaCUqF9PymO6qYnLoIZVb ZYKtY2VvtFUvZNydC152VIex WqC6KRHomrDnW4SsPWOujYqn OiB0 n7S9Mj3Qr2TgfcytX3CpaEJh DqBrBrwoBUd0I3WaHxjrwCL+ KV75HWKjBK95GYt3RMI7wUme PSdi SONlG7QhgB2bFaGdYSZdAYMy Oyc+PHRhYmxlIHdpZHRoPScx FCMiRkStiOntCC1wJn3gZNZs LWNv eVwywMVfKnUms6spTGUqGOoc JJ8enUdwF7PaqYV8AEGsq0y1 Hc47E44gM0VrwUN+PGNvbCB3 aWR0 gR8zVuCsYdS0YEqdT345SxZd rCVtTvyvo0hyu8etlOo9ZiG2 AZTwlzGeuAlrPCD1k3WwXz41 Y29s IHdpZHRoPSIxNSUiIHZhbGln er5bgZ4xBu4+ZOVieAZ5oCQ8 fU3gXwKiPzI9OZscG026ZlHc cCIv Bhoop7tag7tewUq9UvDxDWAb ovHutGpxPON5w7VeQl73H1Kw qYqka2FpRoo5ij93rXQak0B3 bGU9 L8KiAOXvcnptgAUnsCkoHS2i SVVxnxwbWCFebS6hTAXhC5v9 BpBjQxZ7LVpbY8VqziC5UNLl bGQg MONanQTTrX1gtoldv6mfkfda NhIySJYwTMd4RDi2YVEcqNwl RpYmPJI6McK2OFP2uZVpuW4s bGln tgigfM5gLeh+ZYW4xLJjxLWC WN2iGfskjXC+DWIpCZX5uZxc IMtqSRRccD7yCUYhZ2r8LiYy LjA1 FZqmA6RqrxL5KVFruRZyXVXs gNBLhY6stopig5yedfiiTtXl XDTkYAh9NXj6PQRbrNspYpIk ZWZ0 WnL4AFF1nKPajC3muOmczxpt xX7gZpx+RlrihDuyMMF6FNr1 M1YwKyy5UFPhqSzeOV7htTIj ZGlu Ut8fwTlstCmiMY7wZNHvjrzv r827UvFnl8xcSYHziMNeMWhx IKV0I71ek1C2EPLvSUMnLJD5 dGV4 iW5xiCmhkrpflSPjiCqgcwHf qDeqESblGIkjO204NHUhtVki GjTeMYn3B7HqBgd7XRDkoNpn ZT0n sHZtZYluXl2laMzfnDiwAT4o YPRpgkkal908EvCrg8cvOWSq eTLgFVwiCLU2O28ni6M1EVBr MDAw HFV8nBY2yE6ifAjlmebkiIZo rXhyxiEltBrfSCtoCHguW823 HCCzoWnpCcDieIq1W6NtNoa8 ZCBz fYwyTK7htKSeMGhrIn3btWym cHucSE5cPVEcvwdoq970HlYg t3jtQNLpbCKzJQhoZHN9C73p b3I6 CACuRAKsWPG2qKS1yZ3yhZcx bjogbGVmdDsgdmVydGljYWwt XPtnA825UXOieMhbRiPzxKvg bnQg KHerUXm3B6ZfTuwyaRK+PC90 MMTsVN17nKUzoJWsv4ptzOc5 NaCeQHToAZF9sKvmEYrwj4Jp ZXIt Y36bjPDxy7U5QXNafXvbbNPa NsTniBO7pF7dUGjcfdqbd7go hguyTyhjy7wpak77oR58T05t IHdp MAIbOPLpDKViIHOhsMcnyn0z aW8iNm7+UCYpxYD0pVM2kY4b SOYxDzX0JGaeP815ZxWbpWWj Pjxj n2ozn7fygNo4JqC8KMGhjdJc mTdqXLA1w7WkNr86A93pLGud WJHyYVDlWSScPYRszCepon0f dG9w Ii8+WYLfwOE0mSA3pW3aTnZz FfA7DOdsN539NeCjnPCpZfoy S74eD2GjsHV+PBRuSnf4JOPj dHls EC6wbMZfJIhzFp2vVIX7MdSt LaXsCIxaL7FkPACttauelbwv wRY9EGKlYAZmoH99Dp6vsNth MTBw sQCGxH8hfldse2qgrrkhHwPn AZYnJWz7HNl5MUCcnZugPvPp ITK6LnG1SZR1oIBleK5kuHmf bjog fI8fD8SrAZWetzfmIn65uR2z IeVgQkH0BOrjLxh+RFVSSVZB Z1OuLAuAVytvUCnLOA28R0Nr Pjx0 UUUtuYkuKO0gzRDbYPsmCr5g kJiquFsvJK3iBUPgktipTVWf vE7zARRglPEvkQryCU0eMYUd bjtm y070MbIiPTX4COVlsQOxZ2Ny iB7hWwGdCPVqNGYdZ7LowXFa FItaX283CIhzWrO2CATmluEr Y2Fs WRLqcMmhXoW5y6E7Us0iZX9e Oo0wPED5KX17PV32uFJou2Z1 mXM3M4YkOUOeyessgupbiLG6 IDAu HIXbqP56sZDsICfnCy0bf0T3 y633OOUeRQVljC40Be6gpQgo BQHwsBZNgN7llcxpb3ohjfcx IzAw NWIeSBn1MGy0BDIxjYpnSkKd TNV4ExC1ADL5aBNcwF6hwLri nooptA6cHlj+NTYgWWVhcnM8 L3Rk Txq8XJNbjVdwXO3skBDiZSxw Rc9inBxmyOiuKU3kRHFjmigv VVUfoY6rWCIseJWcaFptBX7a NTBp lpgih959IwAzCDD3LGXvsXVw V7QugF2hSlFpGUBjBKHsZ6Va wFIoOIcbI643ZRcvHmM2SKYp cnRp K4WxEVFwdHrqTbY1o7K9Ew5S OSgZFP65HC10lCRgr8E4wYY5 N7ZbMOHelztvltmfaRY7MNTf MDUw oQ38bRYyTBxtXi0jh3I2g086 FVUvNNSptA23Ij0vvQjzEZLn iPOGqM5tkjudp8dzadunFgXo MDAw TBp8AWf4PYSyiFtoXtBfUSH3 CwR9ZAQ7zFWlaF4ajNasnonw xE4lRiz+E2T1P8UiGuktwIU+ PC90 WFQfHZ60uPHqnURrv5uzpGh8 VyOlTRMiBSQ9zLgeYHbmi5Kb QKTrG41teZYpl1U6LPMufDhn cHNl OnIokCL1wI9kPHhutsxev2bv zucoFwaxr7otmz60xT94D16n IHdpZHRoPSIzMCUiIHZhbGln bj0i nL1iQx3+TIDbrAP9hGO0mB9o RtHiOoK0HJbwG124ItVdxAFv Vtdie1low5eyxMf5AzHaKBIg dmFs xXasSGU9g3NoDl04G87iJKis DPDtLRWsKJBcJPVgkMjsjo3z cN7yTe6+GY4sd9scgz16qZ04 dHI+ XPHnXZE4mOguAPwhLSDegG4t NYdtPiN4FSAvNhZssT85yAAb UTjhVg6sbPxltXfpNK9oNIGy bjtm o180CcAvj8uxUDMqtSXhCPwv PXB8J72gu3E3YWNqRKSrWVU9 lQD8jC8qgGzimfxtmSMizZoc dmVy zQkhCRfiBSdsP019OBSchWny MbYelNZkX0nbafECEY0yCqcq dGQ+MQJkHSE0dRayNMobDFOd aW5n SNYvD3g1VnMbTsX9RLjdK4Yl cvC2DQCpoDPePSVzdOZHhV5n kgljr6sgxdayLbHpFPXlBFl1 ZXh0 CYInyYsrYmTgQFZ5QhA2ACO4 uQZkcV8mnVgzdpeetC0aMpk+ RklOOjwvdGQ+EUIbLYE4rPij PSdw YBHfyZ1aTNPuA3t6VtLeYpL5 QRymQ9ApeaH1PNCqgIQyAFAd vNMYqQ6mczofx9ljknzlHfLj MDAw DTh6BEy0XUPxlYkgWdRmSZG9 LgB3ZUT4fEIluM6pgUtuximp sA7pGmn+TVJOOjwvdGQ+PHRk IHN0 zPngSZkoWATkiJ6jEGNbZ1d4 QqPxKyW8WUjxG0NxobU6NCCp jPDkBBGmiQCFtW4vsacur0zy cjog YhYrQKXxLFv0QHu2UDJajKbc VpNvWEG4GmD4LNY3aUAdoQ3f cTtzbsqwmC6hYvz+FIA2LOI5 PC90 EZ69X9SiGjcbaIKkpGK+PHRh YmxlIHdpZHRoPScxMDAlJyBz qBhqJM9cTn9vONXdRZIuvPpl cHNl OiB (more content not included)... [facility] Consent Formson 09-06-2023 Consent Forms [id number]..[id number]#1.00OTG TIFF [facility] Stress Teston 09-06-2023 Stress Test 100.64.198..2020 [id number]#1.00OTG TIFF [facility] CV Stress ECGon 09-03-2023 CV Stress ECG [...] reported separately. Jaskaran Tejeda MD JOB #: [id number] ul Final Dictated by: Jaskaran Tejeda MD Dictated DT/TM: 09/03/23 10:07 Signed (Electronic Signature): Jaskaran Tejeda MD 09/21/23 8:26 am Technologist: ADE [facility] NM Myocardial Spect Multi Re st/[place] 09-03-2023 [...] Garcia MD, V. 09/03/23 11:43 a Technologist: [facility] Provider Orderson 09-03-2023 Provider Orders [id number]#1.00OT [facility] Provider Orderson 09-02-2023 Provider Orders [id number]#1.00OTGT IFF [facility] Provider Orders [id number]#1.00OT GTIFF [facility] Consent Formson 08-24-2023 Consent Forms [id number]#1.00OTGT [facility] Surgical Pathology Reporton 08-16-2023 Surgical Pathology Report (NOTE) [id number] [facility] CONSULTING PATHOLOGISTS [facility] ANATOMIC PATHOLOGY [address] [place] [id number] SURGICAL PATHOLOGY CONSULTATION Patient Name: GURVINDER CHAUDHRY MR#: [id number] Specimen #[id number] Procedures/Addenda MOLECULAR PATHOLOGY REPORT Date Ordered: 09/16/2023 Status: Signed Out Date Complete: 09/16/2023 By: Obie Marie M.D. Date Reported: 09/16/2023 INTERPRETATION AT THE REQUEST OF DR. MISSAEL TEJADA, BLOCK D1 WAS SENT TO [facility] FOR DECIPHER PROSTATE BIOPSY GENOMIC TESTER ELECTRONIC SCALE TESTING. THE RESULTS ARE FOLLOWS: GENOMIC RISK IS: LOW RISK OF METASTASIS WITH RT OR RP: 7 YEAR: 0.5% 12 YEAR: 1.1% RISK OF PROSTATE CANCER MORTALITY WITH RT OR RP: 17 YEAR: 1.2% RISK OF ADVERSE PATHOLOGY AT RP: 18.3% PLEASE SEE [facility]' COMPLETE REPORT ([id number]) FOR DETAILS. Case report, all slides and [...] negative for racemase. Controls are adequate. Normal [facility] Standardon 07-15-2023 eGFR Non AA >60 Invalid Interpretation Code [facility] Comment on above: Performed By: #### 1 [id number], 7017856, [id number], 3735100, 6581480, 3157206, 7962901, 4445620 #### [facility] (DEFAULT) [address] [place] [address] eGFR AA >60 Invalid Interpretation Code [facility] Comment on above: Performed By: #### 1 [id number], 3102727, 4909380720, 9049378, 9261233, 1356807, 1919583, 9811285 #### [facility] (DEFAULT) [address] [place] [address] 28271 Albumin [Mass/Vol] 4.5 g/dL Normal 3.5-5.0 [facility] Comment on above: Performed By: #### 1 [id number], 2289738, 9209202517, 0458241, 6998292, 9068711, 5728428, 1329867 #### [facility] (DEFAULT) [address] [place] [address] 95850 Alk Phos 44 IU/L Normal 32-91 [facility] Comment on above: Performed By: #### 1 [id number], 1818385, 6129001307, 2276040, 1866993, 2632546, 2834322, 8503250 #### [facility] (DEFAULT) [address] [place] [address] ALT [Catalytic activity/Vol] 35.0 U/L Normal 17.0-63.0 [facility] Comment on above: Performed By: #### 1 [id number], 8210451, 4085040660, 7190265, 7075224, 7838328, 3159779, 2242153 #### [facility] (DEFAULT) [address] [place] [address] 84168 AST [Catalytic activity/Vol] 35 U/L Normal 15-41 [facility] Comment on above: Performed By: #### 1 [id number], 9661259, 6356607039, 6822482, 1034975, 8211010, 5436140, 4087429 #### [facility] (DEFAULT) [address] [place] [address] 48519 Bili Total 0.7 mg/dL Normal 0.3-1.2 [facility] Comment on above: Performed By: #### 1 [id number], 5580220, 1283010393, 8590797, 0826939, 9045714, 4824145, 2826982 #### [facility] (DEFAULT) [address] [place] [address] 73238 Calcium [Mass/Vol] 9.4 mg/dL Normal 8.9-10.3 [facility] Comment on above: Performed By: #### 1 [id number], 4352337, 0428690353, 4288462, 7974540, 4864758, 9381472, 6808368 #### [facility] (DEFAULT) [address] [place] [address] 71367 Chloride [Moles/Vol] 102 mmol/L Normal 101-111 [facility] Comment on above: Performed By: #### 1 [id number], 9782824, 2658317868, 8142804, 2648239, 9208848, 0007466, 8522589 #### [facility] (DEFAULT) [address] [place] [address] 61852 CO2 [Moles/Vol] 30 mmol/L Normal 21-32 [facility] Comment on above: Performed By: #### 1 [id number], 2980251, 9776007759, 9775360, 9525100, 9059388, 6224760, 6185539 #### [facility] (DEFAULT) [address] [place] [address] 37260 Creatinine [Mass/Vol] 1.15 mg/dL Normal 0.90-1.30 [facility] Comment on above: Performed By: #### 1 [id number], 1331121, 4349271229, 8173863, 7700541, 3293547, 1916025, 1717232 #### [facility] (DEFAULT) [address] [place] [address] 94767 Glucose [Mass/Vol] 88.0 mg/dL Normal 74.0-118.0 [facility] Comment on above: Performed By: #### 1 039160333, 9194867, 3010865021, 2788784, 7469565, 4512626, 7872858, 8232395 #### [facility] (DEFAULT) [address] [place] [address] 87899 Potassium [Moles/Vol] 4.1 mmol/L Normal 3.6-5.1 [facility] Comment on above: Performed By: #### 1 768010551, 6595468, 8805964038, 6162767, 6862309, 5243613, 1348313, 9796826 #### [facility] (DEFAULT) [address] [place] [address] 61547 Protein [Mass/Vol] 7.1 g/dL Normal 6.5-8.1 [facility] Comment on above: Performed By: #### 1 443584170, 7828493, 4714842256, 9960676, 0177719, 5484319, 3830945, 1842159 #### [facility] (DEFAULT) [address] [place] [address] 13511 Sodium [Moles/Vol] 140.0 mmol/L Normal 136.0-144.0 [facility] Comment on above: Performed By: #### 1 331307092, 0196225, 6314294489, 1220652, 4634812, 0602530, 3855071, 0967888 #### [facility] (DEFAULT) [address] [place] [address] 75794 Urea nitrogen [Mass/Vol] 25 mg/dL Normal 8-26 [facility] Comment on above: Performed By: #### 1 315029717, 7451410, 1942561089, 3093190, 0471697, 7794753, 9911864, 9997945 #### [facility] (DEFAULT) [address] [place] [address] 71987 Albumin/Globulin [Mass ratio] 1.7 {ratio} Normal 1.4-2.6 [facility] Comment on above: Performed By: #### 1 185220470, 6930614, 2947497887, 4570519, 4727038, 2345824, 4233978, 3799954 #### [facility] (DEFAULT) [address] [place] [address] 14685 Anion gap [Moles/Vol] 12.1 mmol/L Normal 5.0-19.0 [facility] Comment on above: Performed By: #### 1 270742011, 2937088, 7621140610, 2494098, 3465362, 0849338, 8039698, 4993658 #### [facility] (DEFAULT) [address] [place] [address] 64974 Globulin (S) [Mass/Vol] 2.6 g/dL Normal 1.5-4.3 [facility] Comment on above: Performed By: #### 1 543891663, 8151887, 8138062560, 1872977, 2728949, 6558091, 5593694, 0720711 #### [facility] (DEFAULT) [address] [place] [address] Osmolality 283 mOsm/L Invalid Interpretation Code [facility] Comment on above: Performed By: #### 1 651852702, 6165214, 0074837952, 1002160, 0669000, 8379066, 2905895, 9602014 #### [facility] (DEFAULT) [address] [place] [address] 70914 Urea nitrogen/Creatini ne [Mass ratio] 21.7 mg/mg High 4.6-16.2 [facility] Comment on above: Performed By: #### 1 459639827, 3175292, 9206926269, 7516103, 4283116, 3347272, 2439264, 4805022 #### [facility] (DEFAULT) [address] [place] [address] 65993 GGTon 07-15-2023 Gamma glutamyl transferase [Catalytic activity/Vol] 22.0 U/L Normal 7.0-50.0 [facility] Comment on above: Performed By: #### 1 184080339, 3609874, 5335780332, 7894683, 5303993, 1529320, 2086520, 4619132 #### [facility] (DEFAULT) [address] [place] [address] 51052 Iron Levelon 07-15-2023 Iron [Mass/Vol] 114.0 ug/dL Normal 45.0-182.0 [facility] Comment on above: Performed By: #### 1 386591824, 4869529, 2458915420, 4195766, 4381752, 4545002, 7163941, 4442162 #### [facility] (DEFAULT) [address] [place] [address] 42223 LDHon 07-15-2023 LDH 257.0 IU/L High 98.0-192.0 [facility] Comment on above: Performed By: #### 1 885219659, 2598838, 6269606119, 1477446, 0216875, 2602735, 8120608, 4716634 #### [facility] (DEFAULT) [address] [place] [address] 86299 Lipid Panel Standardon 07-15 Cholesterol [Mass/Vol] 188.0 mg/dL Normal 66.0-200.0 [facility] Comment on above: Performed By: #### 1 949480533, 2967249, 9970239598, 0924878, 3383050, 5746259, 9259920, 7031580 #### [facility] (DEFAULT) [address] [place] [address] 26456 Cholesterol in HDL [Mass/Vol] 45 mg/dL Normal 40-71 [facility] Comment on above: Performed By: #### 1 756211422, 3396847, 0407313597, 1577519, 5683110, 3264366, 6248858, 0294357 #### [facility] (DEFAULT) [address] [place] [address] 51564 Triglyceride [Mass/Vol] 130.0 mg/dL Normal 0.0-150.0 [facility] Comment on above: Performed By: #### 1 314209742, 4671268, 4881928736, 1540545, 7596890, 4277137, 3947884, 5410639 #### [facility] (DEFAULT) [address] [place] [address] 03624 Cholesterol in LDL [Mass/Vol] 117 mg/dL High 1-100 [facility] Comment on above: Performed By: #### 1 865233799, 2267526, 5131164301, 6488521, 0187067, 3424044, 9371831, 0173274 #### [facility] (DEFAULT) [address] [place] [address] 39710 Cholesterol.total /Cholesterol in HDL [Mass ratio] 4.1 {ratio} Normal 0.0-4.5 [facility] Comment on above: Performed By: #### 1 363374665, 4904818, 4564825802, 3151384, 8615130, 2645076, 9760045, 8786127 #### [facility] (DEFAULT) [address] [place] [address] VLDL. 26 mg/dL Normal 5-40 [facility] Comment on above: Performed By: #### 1 333705937, 9107287, 8236191794, 5337444, 7454979, 1945162, 6535672, 4984041 #### [facility] (DEFAULT) [address] [place] [address] PSA Screenon 07-15-2023 PSA Screen 5.97 ng/mL High 0.00-4.00 [facility] Comment on above: Result Comment: [employer]This Clinical System (Chemiluminescence) Values obtained with different assay methods or kits cannot be used interchangeably. Results cannot be interpreted as absolute evidence of the presence or absence of malignant disease. Performed By: #### 1 [id number], 8592487, 7003473286, 9123986, 2894416, 6744377, 8704497, 8822754 #### [facility] (DEFAULT) [address] [place] [address] Phoson 07-15-2023 Phosphate [Mass/Vol] 3.2 mg/dL Normal 2.5-4.6 [facility] Comment on above: Performed By: #### 1 226431388, 3234643, 6345329606, 8434123, 2391261, 0484005, 7038850, 4236148 #### [facility] (DEFAULT) [address] [place] [address] 71571 Uric Acidon 07-15-2023 Urate [Mass/Vol] 6.0 mg/dL Normal 4.8-8.7 [facility] Comment on above: Performed By: #### 1 [id number], 1563026, 4427026993, 8672220, 5479309, 4760425, 6541398, 7337175 #### [facility] (DEFAULT) [address] [place] [address] 95674 Encounters Encounter Date Encounter Type Care Provider Facility Start: 09-03-2023 End: 09-08-2023 ambulatory [facility] Facility:[facility] Start: 09-02-2023 End: 09-03-2023 ambulatory Eli Santos Facility:[facility] Start: 08-16-2023 End: 08-16-2023 ambulatory MISSAEL TEJADA [facility] Start: 07-20-2023 End: 07-21-2023 ambulatory Dev Ch Facility:[facility] Start: 12-01-2022 ambulatory JAIR CARPENTER Facilit y:H1 Start: 07-16-2022 ambulatory ROS CM Faci lity:H1 Start: 01-28-2022 ambulatory ROS CM Faci lity:H1 Start: 08-28-2017 End: 08-28-2017 Emergency department patient visit DEV CH [facility] Start: 03-02-2017 End: 03-03-2017 Ambulatory DEFAULT PHYSICIAN Facility:[facility] Payers Date Payer Category Payer Unknown [id number] 1965 Unknown [id number] 2.16.84 [id number] 1965 Unknown [id number] 2.16.84 [id number] 1965 Unknown [id number] 2.16.84 [id number] 1967 Unknown [id number] 2.16.8 [id number] 1967 Unknown [id number] 2.16.8 [id number] 1967 Unknown [id number] 2.16.8 [id number] 1959 Unknown [id number] Unknown Summary Purpose Family History No Family [...] section and content) DATE CREATED AUTHOR 03/15/2018 [facility] DATE CREATED AUTHOR AUTHOR'S ORGANIZ ATION 03/16/2018 [facility] DATE CREATED AUTHOR AUTHOR'S ORGANIZ ATION 11/28/2022 [facility] DATE CREATED AUTHOR AUTHOR'S ORGANIZ ATION 09/17/2023 [facility] DATE CREATED AUTHOR AUTHOR'S ORGANIZ ATION 09/21/2023 [facility] FOR RECORDS PERTAINING TO PATIENTS WHO [...] BE BASED ON THE PRIMARY CLINICAL RECORDS. [employer] provides no warranty or guarantee of the accuracy or completeness of information in this document.
--- NOTE | 2023-12-17 09:48 | P.PN_ITS ---
<Statement entered by Sadaf Yost, - 12/17/23 12:41> This documentation has been reviewed and approved. I have also seen patient post-operatively. Plan for Surgery again wednesday for closure, Antibiotics over the weekend. Progress Note: Subjective Subjective Interval history: 12/17/23924 The patient is resting in bed having just returned to the floor from PACU after Dr Caldera performed surgical I&D OR this morning. The patient denies any pain and has intact sensation and movement to the affected foot. A wound VAC was placed postoperatively and he will remain in the hospital until Wednesday when a repeat procedure will be performed and home wound VAC will be placed. Exam Constitutional Vital Signs, click to edit/add: Last Vital Signs Temp 98.9 F 12/17/23 08:47 Pulse 105 H 12/17/23 09:17 Resp 20 12/17/23 09:17 BP 127/86 12/17/23 09:17 Pulse Ox 92 L 12/17/23 09:17 O2 Del Method Room Air 12/17/23 09:17 Common normals: no apparent distress, oriented x3 and alert General appearance: cooperative Orientation/consciousness: Yes awake HENNH Common normals: normocephalic, head/scalp atraumatic and hearing grossly normal bilaterally Eye Common normals: PERRL, EOMs intact bilaterally, conjunctivae normal and no scleral icterus General eye: normal appearance of both eyes Chest Common normals: inspection of chest normal Chest: symmetrical chest wall rise Respiratory Common normals: normal respiratory effort, no use of accessory muscles and clear to auscultation bilaterally Effort & inspection: able to speak in complete sentences Cardio Common normals: regular rate, regular rhythm, S1 normal heart sound, S2 normal heart sound, no murmurs and peripheral pulses 2+ throughout GI Common normals: Normal to inspection, nondistended, normoactive bowel sounds present, soft to palpation, non-tender and no hepatosplenomegaly Bladder/kidney exam: bladder normal to palpation Extremity Common normals: no calf tenderness General: edema (Trace L instep); no clubbing and no cyanosis Right lower extremity: ankle joint Right ankle: inspection (Surgical drsg D&I), palpation (Post op instep swelling) and neurovascular exam ([place], warm, normal sensation) Neuro Common normals: CN's II-XII intact bilaterally, moves all extremities, no focal motor deficits and no sensory deficits noted Psych Common normals: mental status grossly normal Progress Note: Objective Labs Labs: Short CBC 12/16/23 12/17/23 Range/Units 10:21 03:53 WBC 5.2 3.2 L (4.0-11.0) 10^3/uL Hgb 13.0 L 11.0 L (14.0-18.0) g/dL Hct 39.7 L 33.6 L (42.0-54.0) % Plt Count 202 173 (150-450) 10^3/uL BMP 12/16/23 12/17/23 10:21 03:53 Sodium 141 140 Potassium 3.4 L 3.5 Chloride 102 102 Carbon Dioxide 29.0 27.2 BUN 17.0 17.0 Creatinine 1.13 1.19 Glucose 75 109 H Calcium 9.3 8.6 Liver Function 12/17/23 Range/Units 03:53 Total Bilirubin 0.3 (0.2-1.0) mg/dL AST 24 (15-37) U/L ALT 41 (16-63) U/L Alkaline Phosphatase 50 (46-116) U/L Albumin 2.9 L (3.4-5.0) g/dL Progress Note: A&P Assessment and Plan (1) Abscess of ankle: Assessment and Plan: Acute (Suspected) * POD#0 - R ankle abscess I&D per Dr Caldera * Repeat intraop tissue and fluid cultures obtained - pending * Continue IVPB Linezolid per previous wound culture C&S * Previously treated with Vancomycin - equally susceptible to either antibiotic, but may have developed some resistance to vancomycin * Joint aspirated at Dr [facility] 12/16/23 - Gram stain, C&S pending * Consult Podiatry - we appreciate Dr Caldera's assistance with this pt's care * Defer wound care, post op pain meds, PT/OT orders, WB status to the podiatry service * No clinical concern for systemic sepsis at this time * Continue home [place] and IVP Toradol PRN for pain * CBC, CMP, ESR, CRP daily (2) Septic joint: Assessment and Plan: Acute (Suspected on admission) * Ct imaging supports cindy-tendon abscess. No obvious joint involvement * See above Qualifiers: Laterality: right Septic arthritis location: ankle Septic arthritis organism: due to unspecified organism Qualified Code(s): M00.9 - Pyogenic arthritis, unspecified (3) Hypertension: Assessment and Plan: Chronic * Continue home lisinopril-HCTZ, metoprolol Qualifiers: Hypertension type: primary hypertension Qualified Code(s): I10 - Essential (primary) hypertension (4) High cholesterol: Assessment and Plan: Chronic * Continue home statin (5) Gout: Assessment and Plan: Chronic * Continue home allopurinol * Add uric acid on to ED labs
[2023-12-17] MEDS: LACTATED RINGER'S SOLUTION 1,000 ML 125 ML IV (09:52)
[2023-12-17] MEDS: LISINOPRIL 20 MG TABLET PO (09:53)
[2023-12-17] MEDS: ENOXAPARIN SODIUM 40 MG/0.4 ML SYRINGE SUBQ (09:53)
[2023-12-17] MEDS: METOPROLOL SUCCINATE 50 MG TAB.ER.24H PO (09:53)
[2023-12-17] MEDS: CHOLECALCIFEROL (VITAMIN D3) 125 MCG/5,000 UNIT TABLET PO (09:53)
[2023-12-17] MEDS: HYDROCHLOROTHIAZIDE 25 MG TABLET PO (09:53)
[2023-12-17] MEDS: ALLOPURINOL 100 MG TABLET PO (09:53)
[2023-12-17 10:18] LABS: Uric Acid 6.9 mg/dL (3.5-7.2)
--- NOTE | 2023-12-17 10:21 | CM.NOTE ---
Rounds made with Dr. Yost, pt just back from OR. Discussed plan of care with pt. No discharge today. Pt does have wound vac intact post-op.
--- NOTE | 2023-12-17 11:22 | P.ORON_ITS ---
Brief Operative Note Date of procedure: 12/17/23 Pre-op diagnosis general: right ankle abscess Post-op diagnosis: same as pre-op Procedure: PROCEDURE PERFORMED: incision and drainage of right ankle fluid collection/abscess, application of negative pressure wound therapy right ankle INDICATION FOR PROCEDURE: patient is a 58-year-old male well known to my practice who underwent total talus replacement on 09/10/23. His initial postoperative recovery was unremarkable however nearly 5 weeks after surgery he developed extreme pain and swelling over his anterior ankle. I and D was then performed revealing sensitive staph. Several days later delayed primary closure was performed and he was placed on two weeks of oral antibiotics. Since that time his recovery is going very well however he contacted me yesterday relating that he worked 4-5 hours on his feet and that night developed worsening pain and swelling. He went into our office and was seen by Kandice Reyna PA-c who aspirated fluid collection which was sent for culture. Due to concern for infection he was then admitted and placed on vancomycin. CT scan was obtained which demonstrated a fluid collection near the tibialis anterior tendon integrity the radiologist of signs of inflammatory versus pyogenic tenosynovitis. The one small area collection as noted on the CT scan and by the radiologist may be secondary to a prior aspiration. I recommended formal I and D for tissue cultures and further workup and the patient agreed. INTRAOPERATIVE FINDINGS: aspiration of 8 mL of pale yellow serous fluid was obtained with a small amount of blood but did not appear consistent with purulence. Upon opening is anterior ankle was evident that this fluid collections within the tibialis anterior tendon which was intact and without evidence of necrosis. no evidence of fluid collection or infection involving the talar implant upon opening the anterior ankle capsule. PROCEDURE IN DETAIL: Patient was identified in pre op and consent was reviewed. Correct side and site were identified and marked. Pre-op antibiotics were started. Patient was brought to OR suite and place on table in a supine position. General anesthesia was administered. Tourniquet applied. Operative extremity was prepped and draped in usual sterile fashion. Formal time-out was performed. a 20-gauge needle was used with a syringe to aspirate 8 mL of pale yellow serous fluid from the anterior distal tibia proximal to the ankle joint. There is a small amount of blood also obtained. This fluid was sent for analysis incision was placed over the anterior ankleand there was a serous fluid collection involving the tibialis anterior tendon. The tendon sheath was opened and irrigated. Surrounding tissue appeared to be healthy but was thoroughly curetted insuring no other fluid collection was evident. a piece of tissue was obtained from the anterior ankle tissue to be sent to microbiology. Surgical site was irrigated multiple times throughout the procedure with normal saline and Iresept. the anterior ankle capsule was also incised and the implant was inspected and no fluid collection was noted. surgical site was irrigated with 3 L normal saline on pulse lavage. The ankle implant was tested for stability and was notably stable. Adaptic was placed over the followed by black granular foam for a wound VAC. Foam was then held in place with Tegaderm drape and a small hole was cut into the drape to allow for application of the track pad. Wound VAC was placed at 125mmHg continuous on Veraflow settings. Dry sterile dressing was then applied. POSTOPERATIVE PLAN: transfer to medical surgical unit Continue broad-spectrum antibiotics and deep vein thrombosis prophylaxis Strict nonweightbearing right ankle Maintain wound VAC at current settings Patient will remain in the hospital over the weekend for repeat I and D and possible closure on Wednesday Anesthesia: General-LMA Surgeon: Kyler Caldera Hospitalist Program Director: Kush Hatfield Estimated blood loss (mL): 50 Pathology: other (fluid aspirate and tissue from anterior ankle) Condition: stable Disposition: PACU
--- NOTE | 2023-12-17 12:05 | SWNOTE1 ---
Plan is for pt to return to OR Wednesday.
[2023-12-17] MEDS: OXYCODONE HCL 5 MG TABLET PO (12:19)
--- NOTE | 2023-12-17 15:15 | DIETREC ---
Recommend 30 mL PRO-stat BID and 1 packet Amauri BID, both to aid wound healing.
[2023-12-17] MEDS: KETOROLAC TROMETHAMINE 30 MG/ML VIAL IVP (15:31)
[2023-12-17] MEDS: OXYCODONE HCL 5 MG TABLET 10 MG PO (18:24)
[2023-12-17] MEDS: ATORVASTATIN CALCIUM 20 MG TABLET PO (21:32)
[2023-12-18] MEDS: KETOROLAC TROMETHAMINE 30 MG/ML VIAL IVP ×2 (00:03→10:20)
[2023-12-18] MEDS: LINEZOLID IN DEXTROSE 5% 600 MG/300 ML PIGGYBACK 150 MG IV (02:25)
[2023-12-18] MEDS: OXYCODONE HCL 5 MG TABLET PO (02:28)
[2023-12-18] MEDS: OXYCODONE HCL 5 MG TABLET 10 MG PO ×3 (03:13→22:41)
[2023-12-18] MEDS: LACTATED RINGER'S SOLUTION 1,000 ML 125 ML IV (04:57)
[2023-12-18 05:24] VITALS: BP 152/78; PULSE 82; TEMP 36.5; O2SAT 92
[2023-12-18 05:29] LABS: Basophils Percent Auto 0.4 % (0.2-2.0); Hematocrit 33.9 % (42.0-54.0); Hemoglobin 10.8 g/dL (14.0-18.0); Immature Granulocytes Abs Auto 0.02 10^3/uL (0.00-0.03); Immature Granulocytes Pct Auto 0.4 % (0.0-0.5); Lymphocytes Absolute Auto 0.8 10^3/uL (1.2-3.8); Lymphocytes Percent Auto 16.3 % (20.5-60.0); Mean Corpuscular HGB Conc 31.9 g/dL (29.9-35.2); Mean Corpuscular Hemoglobin 29.7 pg (25.9-34.0); Mean Corpuscular Volume 93.1 fL (80.0-94.0); Mean Platelet Volume 10.6 fL (9.5-13.5); Monocytes Absolute Auto 0.5 10^3/uL (0.3-0.8); Monocytes Percent Auto 9.8 % (1.7-12.0); Neutrophils Absolute Auto 3.7 10^3/uL (1.4-6.5); Neutrophils Percent Auto 73.1 % (43.0-75.0); Platelet Count 185 10^3/uL (150-450); Red Blood Count 3.64 10^6/uL (4.70-6.10); Red Cell Distribution Width 14.9 % (11.0-15.0); White Blood Count 5.1 10^3/uL (4.0-11.0)
[2023-12-18 05:46] LABS: Erythrocyte Sedimentation Rate 33 mm/hr (<=20)
[2023-12-18 05:47] LABS: C Reactive Protein 1.77 mg/dL (<=0.50)
[2023-12-18 05:48] LABS: Alanine Aminotransferase 36 U/L (16-63); Albumin Globulin Ratio 0.9; Alkaline Phosphatase 52 U/L (46-116); Anion Gap 14.1; Aspartate Amino Transferase 24 U/L (15-37); BUN Creatinine Ratio 16.8; Bilirubin Total 0.1 mg/dL (0.2-1.0); Calcium 8.6 mg/dL (8.5-10.1); Carbon Dioxide 25.1 mmol/L (21.0-32.0); Chloride 105 mmol/L (98-107); Estimated GFR (African America >60 (>=60); Estimated GFR (Non-African Ame >60 (>=60); Globulin 3.5 g/dL; Glucose 133 mg/dL (74-106); Potassium 4.2 mmol/L (3.5-5.1); Sodium 140 mmol/L (136-145); Total Protein 6.5 g/dL (6.4-8.2)
[2023-12-18] MEDS: METOPROLOL SUCCINATE 50 MG TAB.ER.24H PO (08:00)
[2023-12-18] MEDS: HYDROCHLOROTHIAZIDE 25 MG TABLET PO (08:00)
[2023-12-18] MEDS: ALLOPURINOL 100 MG TABLET PO (08:00)
[2023-12-18] MEDS: CHOLECALCIFEROL (VITAMIN D3) 125 MCG/5,000 UNIT TABLET PO (08:00)
[2023-12-18] MEDS: L. ACIDOPHILUS/L.BULGARICUS 1 PACKET GRAN.PACK PO ×2 (08:00→22:41)
[2023-12-18] MEDS: LISINOPRIL 20 MG TABLET PO (08:00)
[2023-12-18] MEDS: PROSTAT 15 GM PROTEIN/100 CAL 30 ML LIQUID PACKET PO ×2 (08:03→22:41)
[2023-12-18] MEDS: JUVEN PACKET 1 PACKET PO ×2 (08:03→22:41)
[2023-12-18] MEDS: ACETAMINOPHEN 500 MG TABLET 1000 MG PO ×2 (10:19→15:49)
[2023-12-18 10:47] LABS: A. calcoaceticus-baumannii Cpx NOT DETECTED (NOT DETECTE); Bacteroides fragilis NOT DETECTED (NOT DETECTE); Candida albicans NOT DETECTED (NOT DETECTE); Candida auris NOT DETECTED (NOT DETECTE); Candida glabrata NOT DETECTED (NOT DETECTE); Candida krusei NOT DETECTED (NOT DETECTE); Candida parapsilosis NOT DETECTED (NOT DETECTE); Candida tropicalis NOT DETECTED (NOT DETECTE); Cryptococcus neoformans/gattii NOT DETECTED (NOT DETECTE); Enterobacter cloacae complex NOT DETECTED (NOT DETECTE); Enterobacterales NOT DETECTED (NOT DETECTE); Enterococcus faecalis NOT DETECTED (NOT DETECTE); Enterococcus faecium NOT DETECTED (NOT DETECTE); Haemophilus influenzae NOT DETECTED (NOT DETECTE); Klebsiella aerogenes NOT DETECTED (NOT DETECTE); Klebsiella pneumoniae group NOT DETECTED (NOT DETECTE); Listeria monocytogenes NOT DETECTED (NOT DETECTE); Neisseria meningitidis NOT DETECTED (NOT DETECTE); Proteus spp. NOT DETECTED (NOT DETECTE); Pseudomonas aeruginosa NOT DETECTED (NOT DETECTE); Salmonella spp. NOT DETECTED (NOT DETECTE); Serratia marcescens NOT DETECTED (NOT DETECTE); Staphylococcus lugdunensis NOT DETECTED (NOT DETECTE); Stenotrophomonas maltophilia NOT DETECTED (NOT DETECTE); Streptococcus agalactiae NOT DETECTED (NOT DETECTE); Streptococcus pneumoniae NOT DETECTED (NOT DETECTE); Streptococcus pyogenes NOT DETECTED (NOT DETECTE); Streptococcus spp. NOT DETECTED (NOT DETECTE)
[2023-12-18] MEDS: ENOXAPARIN SODIUM 40 MG/0.4 ML SYRINGE SUBQ (11:21)
[2023-12-18 11:58] LABS: Source Blood
--- NOTE | 2023-12-18 11:59 | P.PN_ITS ---
Progress Note: Subjective Subjective Interval history: No new complaints this morning. Denies chest pain or shortness of breath. Exam Constitutional Vital Signs, click to edit/add: Last Vital Signs Temp 97.7 F 12/18/23 05:24 Pulse 82 12/18/23 05:24 Resp 16 12/18/23 05:24 BP 152/78 H 12/18/23 05:24 Pulse Ox 92 L 12/18/23 05:24 O2 Del Method Room Air 12/18/23 05:24 O2 Flow Rate 3 12/17/23 12:30 Documenting provider has reviewed patient's vital signs: yes Common normals: no apparent distress HENMT Common normals: normocephalic Respiratory Common normals: normal respiratory effort Cardio Common normals: regular rate and regular rhythm GI Common normals: Normal to inspection, nondistended, normoactive bowel sounds present Progress Note: Objective Labs Labs: Short CBC 12/18/23 Range/Units 04:13 WBC 5.1 (4.0-11.0) 10^3/uL Hgb 10.8 L (14.0-18.0) g/dL Hct 33.9 L (42.0-54.0) % Plt Count 185 (150-450) 10^3/uL BMP 12/18/23 04:13 Sodium 140 Potassium 4.2 Chloride 105 Carbon Dioxide 25.1 BUN 17.0 Creatinine 1.01 Glucose 133 H Calcium 8.6 Liver Function 12/18/23 Range/Units 04:13 Total Bilirubin 0.1 L (0.2-1.0) mg/dL AST 24 (15-37) U/L ALT 36 (16-63) U/L Alkaline Phosphatase 52 (46-116) U/L Albumin 3.0 L (3.4-5.0) g/dL Progress Note: A&P Assessment and Plan (1) Abscess of ankle: (2) Septic joint: Qualifiers: Laterality: right Septic arthritis location: ankle Septic arthritis organism: due to unspecified organism Qualified Code(s): M00.9 - Pyogenic arthritis, unspecified (3) Hypertension: Qualifiers: Hypertension type: primary hypertension Qualified Code(s): I10 - Essential (primary) hypertension (4) High cholesterol: (5) Gout: Plan Abscess of ankle with uptake with radius-postop day #1 - cultures pending, continue with linezolid based on previous cultures. Further surgical intervention in 2 days-CRP and ESR are improving Leukocytosis-increased today, continue with current antibiotics, blood culture showing MRSE but only in 1 cultures are likely contaminant-CRP and ESR improving Acute blood loss anemia likely secondary to surgery-monitor daily Hyperglycemia-monitor daily, not elevated enough to affect healing Tachycardia-improved, monitor daily Hypertension -blood pressure well-controlled, continue with home medications High cholesterol: -Continue with home medications Gout: Continue with home medications Inpatient criteria: Patient with abscess, chronic condition deteriorating, failed outpatient treatment, likely 3 to 4-day hospital stay for medically necessary treatment and further multiple surgical interventions
[2023-12-18 12:00] LABS: Staphylococcus epidermidis DETECTED (NOT DETECTE); Staphylococcus spp. DETECTED (NOT DETECTE); mecA/C DETECTED (NOT DETECTE)
--- NOTE | 2023-12-18 12:45 | PM.PN ---
Progress Note: Subjective Subjective Interval history: Patient examined evaluated bedside resting comfortably this a.m. POD #1 s/p ankle I&D with application of VAC. DOS 12/17/2023. He denies any acute events overnight. States pain in the right ankle was mildly improved since prior to surgery, rated at 6 out of 10 at time of visit. Controlled with p.o. oxycodone, fluctuating between 1 or 2 5 mg tabs every 6 hours. Compliant with nonweightbearing to right lower extremity, dressing is intact. Denies any other acute lower extremity complaints and denies any constitutional symptoms. Exam Narrative Exam Narrative: RLE dressing left CDI. Wound VAC with good seal, vera flow setting at 125 mm intermittent. Canister recently changed, minimal drainage in canister. CFT intact to digits. No erythema proximal or distal dressing. Compartments soft compressible, no pain with calf or thigh compression. Constitutional Vital Signs, click to edit/add: Last Vital Signs Temp 97.7 F 12/18/23 05:24 Pulse 82 12/18/23 05:24 Resp 16 12/18/23 05:24 BP 152/78 H 12/18/23 05:24 Pulse Ox 92 L 12/18/23 05:24 O2 Del Method Room Air 12/18/23 05:24 O2 Flow Rate 3 12/17/23 12:30 Progress Note: Objective Labs Labs: Short CBC 12/18/23 Range/Units 04:13 WBC 5.1 (4.0-11.0) 10^3/uL Hgb 10.8 L (14.0-18.0) g/dL Hct 33.9 L (42.0-54.0) % Plt Count 185 (150-450) 10^3/uL BMP 12/18/23 04:13 Sodium 140 Potassium 4.2 Chloride 105 Carbon Dioxide 25.1 BUN 17.0 Creatinine 1.01 Glucose 133 H Calcium 8.6 Liver Function 12/18/23 Range/Units 04:13 Total Bilirubin 0.1 L (0.2-1.0) mg/dL AST 24 (15-37) U/L ALT 36 (16-63) U/L Alkaline Phosphatase 52 (46-116) U/L Albumin 3.0 L (3.4-5.0) g/dL Progress Note: A&P Assessment and Plan (1) Abscess of ankle: (2) Septic joint: Qualifiers: Septic arthritis location: ankle Septic arthritis organism: due to unspecified organism Laterality: right Qualified Code(s): M00.9 - Pyogenic arthritis, unspecified (3) Hypertension: Qualifiers: Hypertension type: primary hypertension Qualified Code(s): I10 - Essential (primary) hypertension (4) High cholesterol: (5) Gout: Plan Patient examined evaluated. All fine discussed with patient, all questions answered by satisfaction. RLE dressing and VAC to be left CDI until Wednesday. Plan for return to the OR for washout and delayed primary closure of the right ankle. N.p.o. after midnight Wednesday night/Wednesday morning. Continue nonweightbearing to right lower extremity. Currently on linezolid per prior sensitivities. IntraOp cultures and synovial fluid analysis pending. Pain medications adjusted with 2 tabs of 5 mg oxycodone every 4 hours. Toradol as needed for breakthrough. Will follow, please call with questions or concerns..
[2023-12-18] MEDS: LINEZOLID IN DEXTROSE 5% 600 MG/300 ML PIGGYBACK 300 MG IV (14:08)
[2023-12-18 14:13] VITALS: BP 163/75; PULSE 89; TEMP 36.3; O2SAT 92
[2023-12-18 19:52] VITALS: BP 142/79; PULSE 85; TEMP 36.3; O2SAT 92
[2023-12-18] MEDS: ATORVASTATIN CALCIUM 20 MG TABLET PO (22:41)
[2023-12-18 23:28] VITALS: BP 116/75; PULSE 75; TEMP 36.6; O2SAT 92
[2023-12-19] MEDS: LINEZOLID IN DEXTROSE 5% 600 MG/300 ML PIGGYBACK 150 MG IV (01:23)
[2023-12-19] MEDS: KETOROLAC TROMETHAMINE 30 MG/ML VIAL IVP ×2 (01:29→22:49)
[2023-12-19 02:31] VITALS: BP 131/78; PULSE 79; TEMP 36.5; O2SAT 93
[2023-12-19] MEDS: OXYCODONE HCL 5 MG TABLET 10 MG PO ×3 (03:48→22:45)
[2023-12-19 05:49] LABS: Erythrocyte Sedimentation Rate 39 mm/hr (<=20)
[2023-12-19 05:56] LABS: Basophils Absolute Auto 0.1 10^3/uL (0.0-0.1); Eosinophils Absolute Auto 0.1 10^3/uL (0.0-0.7); Eosinophils Percent Auto 1.4 % (0.9-7.0); Hematocrit 33.6 % (42.0-54.0); Hemoglobin 10.8 g/dL (14.0-18.0); Immature Granulocytes Abs Auto 0.04 10^3/uL (0.00-0.03); Immature Granulocytes Pct Auto 0.8 % (0.0-0.5); Lymphocytes Absolute Auto 1.8 10^3/uL (1.2-3.8); Lymphocytes Percent Auto 37.9 % (20.5-60.0); Mean Corpuscular HGB Conc 32.1 g/dL (29.9-35.2); Mean Corpuscular Hemoglobin 29.8 pg (25.9-34.0); Mean Corpuscular Volume 92.6 fL (80.0-94.0); Mean Platelet Volume 10.4 fL (9.5-13.5); Monocytes Absolute Auto 0.6 10^3/uL (0.3-0.8); Monocytes Percent Auto 11.4 % (1.7-12.0); Neutrophils Absolute Auto 2.3 10^3/uL (1.4-6.5); Neutrophils Percent Auto 47.5 % (43.0-75.0); Platelet Count 189 10^3/uL (150-450); Red Blood Count 3.63 10^6/uL (4.70-6.10); Red Cell Distribution Width 15.1 % (11.0-15.0); White Blood Count 4.8 10^3/uL (4.0-11.0)
[2023-12-19 06:23] LABS: Albumin Globulin Ratio 1.1; Albumin Level 3.1 g/dL (3.4-5.0); Alkaline Phosphatase 48 U/L (46-116); Anion Gap 11.7; Aspartate Amino Transferase 15 U/L (15-37); BUN Creatinine Ratio 22.1; Bilirubin Total 0.2 mg/dL (0.2-1.0); Calcium 8.6 mg/dL (8.5-10.1); Carbon Dioxide 29.4 mmol/L (21.0-32.0); Chloride 106 mmol/L (98-107); Estimated GFR (African America >60 (>=60); Estimated GFR (Non-African Ame >60 (>=60); Globulin 2.9 g/dL; Glucose 82 mg/dL (74-106); Potassium 4.1 mmol/L (3.5-5.1); Sodium 143 mmol/L (136-145)
[2023-12-19 06:26] LABS: Alanine Aminotransferase <6 U/L (16-63)
[2023-12-19 08:16] VITALS: BP 157/96; PULSE 80; TEMP 36.4; O2SAT 96
[2023-12-19 08:18] VITALS: BP 157/96
[2023-12-19] MEDS: L. ACIDOPHILUS/L.BULGARICUS 1 PACKET GRAN.PACK PO ×2 (08:18→22:45)
[2023-12-19] MEDS: JUVEN PACKET 1 PACKET PO ×2 (08:18→22:45)
[2023-12-19] MEDS: PROSTAT 15 GM PROTEIN/100 CAL 30 ML LIQUID PACKET PO ×2 (08:18→22:44)
[2023-12-19] MEDS: ALLOPURINOL 100 MG TABLET PO (08:18)
[2023-12-19] MEDS: LISINOPRIL 20 MG TABLET PO (08:18)
[2023-12-19] MEDS: HYDROCHLOROTHIAZIDE 25 MG TABLET PO (08:18)
[2023-12-19] MEDS: CHOLECALCIFEROL (VITAMIN D3) 125 MCG/5,000 UNIT TABLET PO (08:18)
[2023-12-19] MEDS: METOPROLOL SUCCINATE 50 MG TAB.ER.24H PO (08:18)
[2023-12-19] MEDS: OXYCODONE HCL 5 MG TABLET PO (08:23)
--- NOTE | 2023-12-19 11:08 | P.PN_ITS ---
Progress Note: Subjective Subjective Interval history: No complaints this morning. Pain controlled Denies chest pain, calf pain, nausea/vomitting & shortness of breath. Exam Narrative Exam Narrative: dressing c/d/i VAC in place No calf pain on squeeze Constitutional Vital Signs, click to edit/add: Last Vital Signs Temp 97.6 F 12/19/23 08:16 Pulse 80 12/19/23 08:16 Resp 18 12/19/23 08:16 BP 157/96 H 12/19/23 08:18 Pulse Ox 96 12/19/23 08:16 O2 Del Method Room Air 12/19/23 08:16 O2 Flow Rate 3 12/17/23 12:30 Progress Note: Objective Labs Labs: Short CBC 12/19/23 Range/Units 04:10 WBC 4.8 (4.0-11.0) 10^3/uL Hgb 10.8 L (14.0-18.0) g/dL Hct 33.6 L (42.0-54.0) % Plt Count 189 (150-450) 10^3/uL BMP 12/19/23 04:10 Sodium 143 Potassium 4.1 Chloride 106 Carbon Dioxide 29.4 BUN 25.0 H Creatinine 1.13 Glucose 82 Calcium 8.6 Liver Function 12/19/23 Range/Units 04:10 Total Bilirubin 0.2 (0.2-1.0) mg/dL AST 15 (15-37) U/L ALT <6 L (16-63) U/L Alkaline Phosphatase 48 (46-116) U/L Albumin 3.1 L (3.4-5.0) g/dL Progress Note: A&P Assessment and Plan (1) Abscess of ankle: (2) Septic joint: Qualifiers: Septic arthritis location: ankle Septic arthritis organism: due to unspecified organism Laterality: right Qualified Code(s): M00.9 - Pyogenic arthritis, unspecified (3) Hypertension: Qualifiers: Hypertension type: primary hypertension Qualified Code(s): I10 - Essential (primary) hypertension (4) High cholesterol: (5) Gout: Plan Cultures (from 12/15 in office & from 12/16 in surgery) pending Fluid analysis (from 12/16) pending however aspirate prelim shows: rare gram + cocci WBC WNL and CRP trending down (0.8 today) Cont linezolid (per cultures from [facility]) Maintain VAC at current settings NWB Plan for repeat I&D vs closure tomorrow at 9am NPO after [facility] d/c Wednesday
--- NOTE | 2023-12-19 11:54 | P.PN_ITS ---
Progress Note: Subjective Subjective Interval history: No complaints this morning. Exam Constitutional Vital Signs, click to edit/add: Last Vital Signs Temp 97.6 F 12/19/23 08:16 Pulse 80 12/19/23 08:16 Resp 18 12/19/23 08:16 BP 157/96 H 12/19/23 08:18 Pulse Ox 96 12/19/23 08:16 O2 Del Method Room Air 12/19/23 08:16 O2 Flow Rate 3 12/17/23 12:30 Documenting provider has reviewed patient's vital signs: yes Common normals: no apparent distress HENMT Common normals: normocephalic Respiratory Common normals: normal respiratory effort Cardio Common normals: regular rate and regular rhythm GI Common normals: Normal to inspection, nondistended, normoactive bowel sounds present Progress Note: Objective Labs Labs: Short CBC 12/19/23 Range/Units 04:10 WBC 4.8 (4.0-11.0) 10^3/uL Hgb 10.8 L (14.0-18.0) g/dL Hct 33.6 L (42.0-54.0) % Plt Count 189 (150-450) 10^3/uL BMP 12/19/23 04:10 Sodium 143 Potassium 4.1 Chloride 106 Carbon Dioxide 29.4 BUN 25.0 H Creatinine 1.13 Glucose 82 Calcium 8.6 Liver Function 12/19/23 Range/Units 04:10 Total Bilirubin 0.2 (0.2-1.0) mg/dL AST 15 (15-37) U/L ALT <6 L (16-63) U/L Alkaline Phosphatase 48 (46-116) U/L Albumin 3.1 L (3.4-5.0) g/dL Progress Note: A&P Assessment and Plan (1) Abscess of ankle: (2) Septic joint: Qualifiers: Laterality: right Septic arthritis location: ankle Septic arthritis organism: due to unspecified organism Qualified Code(s): M00.9 - Pyogenic arthritis, unspecified (3) Hypertension: Qualifiers: Hypertension type: primary hypertension Qualified Code(s): I10 - Essential (primary) hypertension (4) High cholesterol: (5) Gout: Plan Abscess of ankle with uptake with radius-postop day #2 - cultures pending, continue with linezolid based on previous cultures. Further surgical intervention in 1 day-CRP and ESR are improving Leukocytosis-improved today, continue to monitor Acute blood loss anemia likely secondary to surgery-monitor daily-stable today Hyperglycemia-monitor daily, not elevated enough to affect healing Tachycardia-improved, monitor daily Hypertension -blood pressure well-controlled, continue with home medications High cholesterol: -Continue with home medications Gout: Continue with home medications Inpatient criteria: Patient with abscess, chronic condition deteriorating, failed outpatient treatment, likely 3 to 4-day hospital stay for medically necessary treatment and further multiple surgical interventions
[2023-12-19] MEDS: ACETAMINOPHEN 500 MG TABLET 1000 MG PO (12:38)
[2023-12-19] MEDS: ENOXAPARIN SODIUM 40 MG/0.4 ML SYRINGE SUBQ (12:39)
[2023-12-19] MEDS: 0.9 % SODIUM CHLORIDE 250 ML 10 ML IV (14:20)
[2023-12-19] MEDS: LINEZOLID IN DEXTROSE 5% 600 MG/300 ML PIGGYBACK 300 MG IV (14:20)
[2023-12-19 14:29] VITALS: BP 119/69; PULSE 82; TEMP 36.6; O2SAT 92
[2023-12-19 19:29] VITALS: BP 151/82; PULSE 82; TEMP 36.4; O2SAT 94
[2023-12-19] MEDS: ATORVASTATIN CALCIUM 20 MG TABLET PO (22:44)
[2023-12-20] VITALS (14 sets, daily range): BP systolic 125–204; BP diastolic 71–98; PULSE 67–114; TEMP 36.3–36.6; O2SAT 87–98
[2023-12-20] MEDS: LINEZOLID IN DEXTROSE 5% 600 MG/300 ML PIGGYBACK 150 MG IV (01:44)
[2023-12-20] MEDS: OXYCODONE HCL 5 MG TABLET PO (04:22)
[2023-12-20] MEDS: ACETAMINOPHEN 500 MG TABLET 1000 MG PO (04:23)
--- NOTE | 2023-12-20 04:24 | PC.NURSE ---
RN added new NS bag to wound vac for irrigation
[2023-12-20 05:42] LABS: Basophils Absolute Auto 0.1 10^3/uL (0.0-0.1); Basophils Percent Auto 1.1 % (0.2-2.0); Eosinophils Absolute Auto 0.2 10^3/uL (0.0-0.7); Eosinophils Percent Auto 3.1 % (0.9-7.0); Hematocrit 38.5 % (42.0-54.0); Hemoglobin 12.4 g/dL (14.0-18.0); Immature Granulocytes Abs Auto 0.05 10^3/uL (0.00-0.03); Immature Granulocytes Pct Auto 0.9 % (0.0-0.5); Lymphocytes Percent Auto 36.5 % (20.5-60.0); Mean Corpuscular HGB Conc 32.2 g/dL (29.9-35.2); Mean Corpuscular Hemoglobin 29.7 pg (25.9-34.0); Mean Corpuscular Volume 92.3 fL (80.0-94.0); Mean Platelet Volume 9.9 fL (9.5-13.5); Monocytes Absolute Auto 0.6 10^3/uL (0.3-0.8); Monocytes Percent Auto 10.7 % (1.7-12.0); Neutrophils Absolute Auto 2.6 10^3/uL (1.4-6.5); Neutrophils Percent Auto 47.7 % (43.0-75.0); Platelet Count 221 10^3/uL (150-450); Red Blood Count 4.17 10^6/uL (4.70-6.10); Red Cell Distribution Width 14.9 % (11.0-15.0); White Blood Count 5.4 10^3/uL (4.0-11.0)
[2023-12-20 06:08] LABS: Alanine Aminotransferase 58 U/L (16-63); Albumin Globulin Ratio 0.9; Albumin Level 3.3 g/dL (3.4-5.0); Alkaline Phosphatase 57 U/L (46-116); Anion Gap 11.6; Aspartate Amino Transferase 25 U/L (15-37); BUN Creatinine Ratio 22.8; Bilirubin Total 0.2 mg/dL (0.2-1.0); Calcium 8.8 mg/dL (8.5-10.1); Carbon Dioxide 31.2 mmol/L (21.0-32.0); Chloride 102 mmol/L (98-107); Estimated GFR (African America >60 (>=60); Estimated GFR (Non-African Ame 59 (>=60); Globulin 3.5 g/dL; Glucose 78 mg/dL (74-106); Potassium 3.8 mmol/L (3.5-5.1); Sodium 141 mmol/L (136-145); Total Protein 6.8 g/dL (6.4-8.2)
--- NOTE | 2023-12-20 08:48 | PM.PN ---
Progress Note: Subjective Subjective Interval history: No complaints this morning. Exam Constitutional Vital Signs, click to edit/add: Last Vital Signs Temp 97.8 F 12/20/23 08:00 Pulse 75 12/20/23 08:00 Resp 16 12/20/23 08:00 BP 150/83 H 12/20/23 08:00 Pulse Ox 92 L 12/20/23 08:00 O2 Del Method Room Air 12/20/23 08:00 O2 Flow Rate 3 12/17/23 12:30 Progress Note: Objective Labs Labs: Short CBC 12/20/23 Range/Units 04:04 WBC 5.4 (4.0-11.0) 10^3/uL Hgb 12.4 L (14.0-18.0) g/dL Hct 38.5 L (42.0-54.0) % Plt Count 221 (150-450) 10^3/uL BMP 12/20/23 04:04 Sodium 141 Potassium 3.8 Chloride 102 Carbon Dioxide 31.2 BUN 29.0 H Creatinine 1.27 Glucose 78 Calcium 8.8 Liver Function 12/20/23 Range/Units 04:04 Total Bilirubin 0.2 (0.2-1.0) mg/dL AST 25 (15-37) U/L ALT 58 (16-63) U/L Alkaline Phosphatase 57 (46-116) U/L Albumin 3.3 L (3.4-5.0) g/dL Progress Note: A&P Assessment and Plan (1) Abscess of ankle: (2) Septic joint: Qualifiers: Septic arthritis location: ankle Septic arthritis organism: due to unspecified organism Laterality: right Qualified Code(s): M00.9 - Pyogenic arthritis, unspecified (3) Hypertension: Qualifiers: Hypertension type: primary hypertension Qualified Code(s): I10 - Essential (primary) hypertension (4) High cholesterol: (5) Gout:
[2023-12-20 08:51] LABS: Glucometer 93 mg/dL (74-106)
--- NOTE | 2023-12-20 09:12 | CM.NOTE ---
Rounds made with Dr. Cummings, pt going back to OR today. Dr. Cummings will speak with Dr. Caldera after surgery for further recommendations.
--- NOTE | 2023-12-20 10:29 | P.ORON_ITS ---
Brief Operative Note Date of procedure: 12/20/23 Pre-op diagnosis general: right ankle abscess Post-op diagnosis: same as pre-op Procedure: PROCEDURE PERFORMED: delayed primary closure of right ankle wound with application of allogenic skin substitute INDICATIONS FOR PROCEDURE:patient is a 58-year-old male who presents to the OR for repeat surgery regarding a fluid collection and resultant wound over his right anterior ankle. Aspirate obtained in the office on 12/15 resulted in skin nicole wears aspirate obtained in the OR on 12/16 resulted in MSRE while tissue cultures were negative for aerobes and anaerobes. Reportedly the aspirate was to dilute to do so counts evaluated for uric acid. I recommended to be sure that infection is treated that we'll place patient on six weeks of oral antibiotics dictated by sensitivities. INTRAOPERATIVE FINDINGS: Preoperative wound measurements: 7 x 2.2 x 3.5 cm. there is no signs of infection. Wound edges bled appropriately and wound base is fibrogranular. tibialis anterior tendon was exposed PROCEDURE IN DETAIL: Patient was identified in pre op and consent was reviewed. Correct side and site were identified and marked. Pre-op antibiotics were started. Patient was brought to OR suite and place on table in a supine position. General anesthesia was administered. Tourniquet applied. Operative extremity was prepped and draped in usual sterile fashion. Formal time-out was performed and the foot/ankle were elevated for several minutes and the tourniquet was inflated. utilizing combination of scalpel and curettes the wound edges were excisionally debrided to one hundred percent healthy bleeding tissue. Surgical site was irrigated with 3 L normal saline on pulse lavage. 1 g of gentamicin and 1 g of vancomycin powder were placed into the wound bed followed by 5.1 x 5.1 SDRM allogenic skin substitute. The wound was then loosely closed and skin edges reapproximated after tourniquet was deflated insuring all remaining tissue bled appropriately. Then an incisional wound VAC was applied accordingly. A dry sterile dressing consisting of Xeroform on the incisions followed by 4 x 4 gauze, ABDs, and Kerlix were applied. Multiple layers of cast padding were then applied to ensure all bony prominences were well-padded. A plaster posterior splint was then applied which was held in place by Lex wraps. Capillary refill time to all digits was evaluated and had appropriate response. Patient tolerated the procedure and anesthesia well transferred to the recovery room with vital signs stable and brisk capillary refill to the toes. POSTOPERATIVE PLAN: transfer to medical surgical unit Continue nonweightbearing Continue antibiotics. Patient will be discharged on PO antibiotics for six weeks Patient will likely be discharged tomorrow and she'll follow up within a week Implants: Polymedics SDRM allogenic skin substitute Anesthesia: General-LMA Surgeon: Kyler Caldera Patient Relations Manager: Kush Hatfield Estimated blood loss (mL): 10 Condition: stable Disposition: PACU
[2023-12-20] MEDS: GENTAMICIN SULFATE 1 GM POWDER TOPICAL (10:51)
[2023-12-20] MEDS: VANCOMYCIN HCL 1,000 MG VIAL 1000 MG TOPICAL (10:51)
[2023-12-20] MEDS: OXYCODONE HCL/ACETAMINOPHEN 5MG/325MG 1 TAB PO (11:52)
--- NOTE | 2023-12-20 12:55 | P.DS_ITS ---
DS: Providers Provider Date of admission: 12/17/23 11:38 Primary care physician: DOROTHY PERLA Consults: 12/16/23 11:45 Physical Therapy Eval and Treat Routine Reason for consultation: Immobility/post op weakness Has provider been notified: No 12/16/23 11:46 Occupational Therapy Eval and Treat Routine Reason for consultation: Immobility/post op weakness Has provider been notified: No 12/16/23 13:04 Consult to Podiatry Routine Consulting Provider: Kyler Caldera Reason for consultation: Suspected septic joint, R ankle Has provider been notified: Yes 12/17/23 08:59 Physical Therapy Eval and Treat Routine Reason for consultation: postop gait eval/fall risk, nwb rle DS: Diagnosis Discharge Diagnosis (1) Abscess of ankle: (2) Septic joint: Qualifiers: Laterality: right Septic arthritis location: ankle Septic arthritis organism: due to unspecified organism Qualified Code(s): M00.9 - Pyogenic arthritis, unspecified (3) Hypertension: Qualifiers: Hypertension type: primary hypertension Qualified Code(s): I10 - Essential (primary) hypertension (4) High cholesterol: (5) Gout: Plan Abscess of ankle with uptake with radius-postop day #2 - cultures pending, continue with linezolid based on previous cultures. Further surgical intervention in 1 day-CRP and ESR are improving Leukocytosis-improved today, continue to monitor Acute blood loss anemia likely secondary to surgery-monitor daily-stable today Hyperglycemia-monitor daily, not elevated enough to affect healing Tachycardia-improved, monitor daily Hypertension -blood pressure well-controlled, continue with home medications High cholesterol: -Continue with home medications Gout: Continue with home medications Inpatient criteria: Patient with abscess, chronic condition deteriorating, failed outpatient treatment, likely 3 to 4-day hospital stay for medically necessary treatment and further multiple surgical interventions DS: Summary Hospital Course Hospital Course: Patient admitted with recurrent abscess to his foot, it was drained, taken to the operating room for further drainage and debridement. Wound was left open. Today he had the wound closed. Wound VAC was placed. Medically currently stable. Blood pressure did fluctuate somewhat throughout the hospital stay. Podiatry will follow-up on cultures, continue with current antibiotic regiment. Patient stable for discharge to home. Medications see list. Follow-up with PCP within the next week and podiatry per protocol Time Spent with Patient Time attestation: Total time spent providing and/or coordinating discharge services: Exam Constitutional Vital Signs, click to edit/add: Last Vital Signs Temp 97.3 F L 12/20/23 12:54 Pulse 94 H 12/20/23 12:54 Resp 16 12/20/23 12:54 BP 138/87 12/20/23 12:54 Pulse Ox 90 L 12/20/23 12:54 O2 Del Method Nasal Cannula 12/20/23 12:54 O2 Flow Rate 1 12/20/23 12:54 Documenting provider has reviewed patient's vital signs: yes Common normals: no apparent distress HENMT Common normals: normocephalic Respiratory Common normals: normal respiratory effort Cardio Common normals: regular rate and regular rhythm GI Common normals: Normal to inspection, nondistended, normoactive bowel sounds present DS: Data Data Completed and Pending Labs on day of discharge: Labs from last 24 hours 12/20/23 12/20/23 12/17/23 08:49 04:04 08:15 WBC 5.4 RBC 4.17 L Hgb 12.4 L Hct 38.5 L MCV 92.3 MCH 29.7 MCHC 32.2 RDW 14.9 Plt Count 221 MPV 9.9 Neut % (Auto) 47.7 Lymph % (Auto) 36.5 Richardson % (Auto) 10.7 Eos % (Auto) 3.1 Baso % (Auto) 1.1 Neut # (Auto) 2.6 Lymph # (Auto) 2.0 Richardson # (Auto) 0.6 Eos # (Auto) 0.2 Baso # (Auto) 0.1 Abs Immat Gran (auto) 0.05 H Imm/Tot Granulo (auto) 0.9 H Sodium 141 Potassium 3.8 Chloride 102 Carbon Dioxide 31.2 Anion Gap 11.6 BUN 29.0 H Creatinine 1.27 Est GFR ( Amer) >60 Est GFR (Non-Af Amer) 59 L BUN/Creatinine Ratio 22.8 Glucose 78 Calcium 8.8 Total Bilirubin 0.2 AST 25 ALT 58 Alkaline Phosphatase 57 Total Protein 6.8 Albumin 3.3 L Globulin 3.5 Albumin/Globulin Ratio 0.9 Miscellaneous Test Comment POC Glucose 93 Preliminary micro results at discharge 12/16/23 10:47 - Preliminary Blood Staphylococcus epidermidis 12/17/23 08:15 - Preliminary Synovial Fluid 12/17/23 08:15 - Preliminary Synovial Fluid 12/17/23 08:15 Body Fluid Culture - Preliminary Synovial Fluid Staphylococcus epidermidis 12/17/23 08:15 - Preliminary Ankle Right 12/17/23 08:15 - Preliminary Ankle Right 12/16/23 10:40 Blood Culture Result 1 - Preliminary Blood NO GROWTH AT 36-48 HOURS. FINAL TO FOLLOW. Discharge Plan Discharge Disposition: Home, Self-Care Condition: Good Discharge Medications: New sennosides [Senna Laxative] 8.6 mg tablet 8.6 mg PO DAILY PRN (Reason: constipation) 7 Days Qty: 7 0RF oxycodone-acetaminophen [Percocet] 5-325 mg tablet 1 tab PO Q6H PRN (Reason: pain) 7 Days Qty: 28 0RF ondansetron 4 mg tablet,disintegrating 4 mg PO Q8H PRN (Reason: nausea and vomiting) 5 Days Qty: 15 0RF ciprofloxacin HCl 500 mg tablet 500 mg PO Q12H 30 Days Qty: 60 0RF linezolid 600 mg tablet 600 mg PO Q12H 30 Days Qty: 60 0RF Continued allopurinol 100 mg tablet 100 mg PO DAILY lisinopril-hydrochlorothiazide 20-25 mg tablet 1 tab PO DAILY metoprolol succinate 50 mg tablet extended release 24 hr 50 mg PO DAILY pitavastatin calcium 4 mg tablet 4 mg PO DAILY cholecalciferol (vitamin D3) 125 mcg (5,000 unit) capsule 125 mcg PO DAILY 90 Days Qty: 90 0RF fuxframtwo-bzeppljdcsfgx-orua 50-325-40 mg tablet 2 tab PO Q6H PRN (Reason: pain) aspirin 325 mg tablet 325 mg PO BID acetaminophen [Acetaminophen Extra Strength] 500 mg tablet 1,000 mg PO Q6H PRN (Reason: fever or pain) hydrocodone-acetaminophen 5-325 mg tablet 2 tab PO Q8H PRN (Reason: pain) Activity: increase activity as tolerated Diet: advance to your usual diet Print Language: Nauruan Patient Instructions: Cellulitis (ED), Cellulitis (GEN) Activity Restrictions/Additional Instructions: Please leave dressing to right lower extremity clean dry and intact. Do not attempt to remove the dressing or get it wet. Please maintain nonweightbearing to right foot. Please use crutches walker or knee scooter for assistance. Please take medications as prescribed. Please rest, ice behind the right knee, elevate the right foot above the level of your chest to assist with pain or swelling. Please follow-up with Dr. Caldera's office Wednesday12/24/2023. Please call the office to confirm appointment and/or with any questions/concerns. Forms: Portal Instructions Discharge Date/Time: 12/20/23 13:34
--- NOTE | 2023-12-21 15:41 | CM.DCFOLLOWU ---
1st attempt. No answer 12/20
--- NOTE | 2023-12-22 16:15 | CM.DCFOLLOWU ---
Person spoke with: Sanjeev How are you feeling? Great How is your pain? Not much Did you understand your discharge instructions? Yes Do you have any questions about your discharge instructions? No Were you given any prescriptions at discharge? Yes Were you able to get your prescriptions filled? Yes Do you understand how to take your medications as ordered? Yes Do you have any questions about your follow up appointment and do you plan to keep your follow up appointment? Yes and I go back tomorrow Is there anything else that you would like to discuss? No Questions/Comments/Concerns/Other:
== END 2023-12-20 13:34 | disposition home or self-care (01) | DRG 574 ==
LOC: ER 11:14 → MS 11:54
PROVIDERS: Family Medicine; Podiatrist Foot & Ankle Surgery; Admitting Provider Nurse Practitioner; Emergency Provider Emergency Medicine; PCP Family Medicine; Visit Provider Family Medicine
PROC: 0Y9K3ZX Drainage of Right Ankle Region, Percutaneous Approach, Diagnostic (ICD-10-PCS; principal; 2023-12-17 07:30)
PROC: 0HRMXK3 Replacement of Right Foot Skin with Nonautologous Tissue Substitute, Full Thickness, External Approach (ICD-10-PCS; principal; 2023-12-20 09:00)
DX: L02.415 Cutaneous abscess of right lower limb (principal); D62 Acute posthemorrhagic anemia; M00.9 Pyogenic arthritis, unspecified; I10 Essential (primary) hypertension; E78.00 Pure hypercholesterolemia, unspecified; M1A.9XX0 Chronic gout, unspecified, without tophus (tophi); D72.829 Elevated white blood cell count, unspecified; R00.0 Tachycardia, unspecified; R73.9 Hyperglycemia, unspecified; Z79.82 Long term (current) use of aspirin; Z79.899 Other long term (current) drug therapy; Z88.1 Allergy status to other antibiotic agents; Z96.698 Presence of other orthopedic joint implants
CPT/HCPCS: 36415; 73610; 73630; 73700; 80048; 80053; 82948; 84550; 85025; 85652; 86140; 87040; 87070; 87102; 87116; 87150; 87186; 87205; 87206; 89051; 89060; 96365; 96366; 96372; 96375; 96376; 97605; 99285; 99999; A2011; A9272; G0378; J1094; J1170; J2020; J2704; J3370

== ENCOUNTER 2023-12-16 10:12 | Outpatient (REF) | payer OTHER, SELFPAY ==
--- OUTSIDE RECORDS SUMMARY | 2023-12-16 10:35 | XMS_ITS | CCD ---
Author Organization [facility] Care Team Providers Care Train Director Name Role Phone DEV CH Unavailable Unavailable [...] Translations: [Keflex] Drug Allergy 09-20-2009 AOF [facility] Repository Problems Active Problems Problem Classification [...] Coding Summaryon 09-16-2023 Coding Summary HTMLBase 64 XcuccreqYJp9lUy+PGhlYWQ+ OC4BPHKvN49ayFDajB6sN3IP TElOSywgQVBQTElOSyIgbmFt NA9lbKGuEJIw IC8+IO5nCPOeQblxyZAbs9N3 yPG8N85pmt5gOLwybUD1ROWc CxBruqlei0fofOz8KBmnObrh OyBt XSYdoL22SHI3rP53Uw78bZTv qAHsm6obeKz7SlNjWBBtBYS7 qZdfPBxdi9OkQBAmV52mmALs c2U6 DEWcsEzsdJCuQbItaQN5uC9p QLezipixg2wqsifmChj7sn90 lETts2W5nHJ1F5AnleK1TORg bGQg QvzzrFZXlD0bwsdgz4wlbyba EaBsWPRmFKb5ZSl6OKYyoJsz UzEyNF24JRL1FUGkuvPgZ1Lx LWFs pLugEcY0y4A9No5NY5DVXrnm M7RKREYKFZxvaTF+HN19qa38 M3HjTbpvAdi5TYLiRRJ9rEJ4 aD0n KULyTEuyd7U9oCZ8V2EsstEa mb2kk6roABPmYDrdV61dlAUh f9I5ACItbPF3BGVuhLsrPzIt aG93 Oyc+VPHmjRohw6DbXwcnk9jp j4jbmSh4RohiTZYwqsIiaDvo VDY0a9TwKj2bCEMsfWC0gGL2 aD0i QgQpSrF5OPsfY929QiGrbHRj AykoF99xC9CgqGR+PHRyPjx0 KHDaaUevNA2aS3YuOEUevata bGVm lNrgZA0rKETdtorwEFNxnR0m FQHrJ2r0NcHkOkV4VLecC4Ue RVUbrbyiEy32kF1vHgAeWhH2 MGlu K5GxruY0GWXiuVLaVMntEWR8 O08za4Z0OYCdJWGxUTU9zJL2 pF3poTjzhtwipZHxcCpveoCu dGlj IFyfSUegE740XBFsbZnaIpRq ZGluZyBEYXRlOiAgMTIvMjgv MjAyMzwvdGQ+ROCkBXD7hEmm PSAn dGGdJSalPk9rnKxdvVcrPF3u QLIlukpiJODpiM3qPFBpaAZf cFiwTH7lZGGuwagef322QiEl MHB0 YIImxCRlI9OdnA0yXaHkANKb GNSnA8NckXEyLVjsZ470IWow SqS4UTSgmxWqD8VnSMMidGyu OiB0 k1W4By9Zi2KullwjW7JaqKOu XrAzQewhTJt1Q9PwAhamgKV+ NI16TTOkBX52AZb9JKF3pCgs PSdi KIJkD3JdtA0aIyToHQOaWDJi Oyc+PHRhYmxlIHdpZHRoPScx XYDjIpPfuBzdAZ5jLs1tZLBz LWNv jNlrzSYuKxGrl7gzVGOsRCit WJ9peUquN7XsbYM2XADqb6f0 Xd45N01iZ6ZjkZJ+PGNvbCB3 aWR0 vH9nUlIsYpV0HNvjE427KzFy pKUmFzcar9dug9hphAd5OlY0 OEXnxvIwuSxoMKC8d5QiIk87 Y29s IHdpZHRoPSIxNSUiIHZhbGln df3leP5hIt0+WHFhaYY9uAT5 qQ3lXgReLpG5WFrwL184LfVb cCIv Iwpke8lfd3qydBc6VwHdNDXf mzCorTvvLPR1x3ZiFk90F7Pj fKbxs1YkZyp0fb33cGZdl5K2 bGU9 M3MaVDIlrfrzuTPhqOgeXG3h KCWhclnzKROisE2zZCYsF6q3 LgQvUpG3AFpcH6OaznT4WWAh bGQg MIThbFLRdU7szvtrx7ylazjj JjXvVDZtSEz6CTs8JKKsyWyq MdNwWSU4XsI7AGP2gZTxwR8j bGln xdgriD0vWmc+AEV0qLGlbZYX DV8gTvckbXI+IYFtWWS7sCrm NRexLUPtgE0jJVDhY2u4GbYn LjA1 AHmfE9ZgysY7HPKbfASdPOXz uCKRaX8ufhnhh4ifnooaPeYr UIGsAPe4NBl2QXVtyRwiYgZh ZWZ0 RhA5OOX5gSUhkW1meXpqaaac hV4dVwv+DnxfsJguPAA6BAr6 D9TwPld6JZEaqQzcLC1euOMg ZGlu Of2hgLjugManYM2zKSQeptxa b670ZpBen9dcGNPksPRgVPdo ZPR0E66ys8C9PJLhBKQyFHP4 dGV4 hP9cnXwauvfolINbfUwskaGh dZyrTVyfKRhdX676PTAgkYly IrBuUHw9P8VjNui0LIWggMqj ZT0n mNYaWIkjKp7yzDayhJtsZG4t QGEvfaifo503FrMef8ybMFSs pLJrKNnjQFK5G22qf5M4RXMp MDAw NJP2uCR3zQ3waPiyuhiahFUo fBwvmlJxjGceNYhaOLleP686 AROvvKqmKgLpyOa8O1BwXnc3 ZCBz yIefFF1pkFWmWKquZi4vnZzm wVeoDW4pLSPojujpy928WlCa t8wcDTQfqUEtLJnrHRS8P41n b3I6 DTLpAVSlMVO6eYI7pQ3amFpq bjogbGVmdDsgdmVydGljYWwt HKumK425LCOptPrsGnCgvCuk bnQg MIqaZUf4X6YcIbzxwSO+PC90 IPWwSZ11mCBhfDDch4rsxUa6 CxKuXYWfNEM3yBsvORrhg8Ye ZXIt A05pkTVct7Y1PNGitYzjjGJg DuXdrNT8hJ9zCSdqgbtjd3wk blfaYrmnr5zzvy24aX75P96z IHdp WMQzNDXkVTClFSVaaMahsh9k jX7rSl7+IHVrfOO7jCH0vY9n NYEnXyR4JHbyE600ZrBxvFGd Pjxj k8iac5obwEo4NbQ3LYTirhJy wFowGYJ2b3WlCe49B94yCMru WBTyETIeFADfGVFhdNdydw8f dG9w Ii8+MUFhgUA1sMD9dS5iOoHu MkW5HFctS328EjJqrLFxCqnl S26bL0OkaBO+IDKxHdz5JKUw dHls RO4buRIaAEjdCv9lVRS9LuKy TpPtJDemJ5PpXBYaiibhpjgy zIW7PGHtHCJicZ03Fn2vbNnn MTBw jYOAoQ1zttldw5afvlzaWdGk LRJlCBy9GIl6SMSpzTgnOrFl EUQ1OuU6VKS1yBPidU4fnIgc bjog eP8fO1TsFYQgewchTg20pU5k HuBdYhU2NGjkVhb+RFVSSVZB X8CwZSeNUusrPNwOCJ03P3Xc Pjx0 BTUaaDtsZY0hnSQcNQprAz4l tTqqoAglBL9xTILrgqyqKIWh jH0aSSQilSMgjLepVL8vJNVj bjtm z696SiNsHNH2NRUdoPCiV8Qq hZ9bSeNjXLHmPMRsJ3YxhFXn MQbzF044OVyqRjN6CNSgoyCl Y2Fs RXNllCkdJnN9a4W5Ar3zDD5c Nb7sTKI5VU77IE64mGYhx3S4 cAI4Z2ByTKJbxdqngritkHC3 IDAu QIVmhK12kNRpWHazFs2tv0S9 g787LRHxRHMxtC02Ir0sfBdm SVIlqLCPkD4fyjblt2wegaap IzAw LRPkRXs2GGr5ZREsoSxbDtPt ZOP9FwZ9UTR7qLZwzB7ocGyb ebnoiR8vLxn+NTYgWWVhcnM8 L3Rk Jnz8GRLiqJnoQM5omHJiRUyh Tk7hxStzyVgmBS8qTWXmlmis HEFcsQ5mDUZntJPfdIijQK5k NTBp ymwyo902QcCtUFY0BDOkpZFx F9HkbE9eQgVrMZEzCNCiR0Eh nJZsNUglG516TRexAmI7MEDo cnRp C2WcHXRguKfgZiX0t7A6Pu9P NThHNJ46SE28zDPcs0L8cIV8 C1HnCHJkesowhabpqVH5WWQr MDUw gU01aMAaXPlbKz9yq7Z1e922 SIJmDIIixW67Zq4ztMiwRCJt xLIRdE9lyeijb4jpaoybYvGo MDAw UGe2NTh3NXMloEvxFpJrQGQ8 DfE6FTN3mAXwaB9blMlwtdlh tM4xZgl+R6L5wWU8bDXbgWJn biBh IEJlZDwvdGQ+SK33da63W1Fu OrfaFnm6CBRfWCC2gHN7rG1x BXJnUXbyk2E6dXE0P3IzgoSb ci1j y5ueOSPbAFutZ61gaFWjd1A9 QHSbcAJ8BVVahSzzWuXxbE91 Oyc+LSLpbXgbt9YfSzuau6qu d2lk mIy9QuDqHDJykoPxiDmyKSY5 o6LsXc23I68aWLauVTLgAGXe AYWvRELsvJcjzu3paO8mTl0+ PGNv kSS4gJL5sY5xVaWqTnN5LFoq G755AgUzaDTmWkpyl9wgn6yl lUs3UoIwACJjsfUnaAxqLXG8 b3Ai Bj80G8ChdVyqi4PcJlz8ci41 rPGbp3B0sHN5I2JkNCSbayem zXQdsWviXD9qGVIyacedOQEh aW5n GVXjF7g4ZbZcLiJ3NYqyD9Ei xtV6LMDkbPGvGKBubUDOhI2x rqnhq1nlrptnJzYdOXNeCAd1 ZXh0 YXUboWanBiPjLAK1NgW0GJB6 gRRzeG3sqFucqvxyyV1lAbi+ CGc8w1nydWAkNL2wuYV4EC03 ZD48 bBLss6G8kOY2C8MyJLKtbavk jzsdiMG7UWNnJKYckL93Zq8y bCngPi7aIESjLMD1NVJshBIn O2Nv bM3dYaFmAMHoQCUxE7WukTAi NEvhW251QDzdDbR2MNDcjpGl B0MfTMYcbEiuEaT3b9P2Gl2V SU46 ZT13EM20jESey0N7nFO4D2Eb RSZgterntznmsDK9DSTfRJDt gZ75Oj6glKbvSe5hUOZdDTC0 IFRp aDXvD2SijO4nKjJqARKxOXKj J1KlwWLtULhbQ432GOrxOmD0 UHOiupGkU9NuCASdlKlgVsO8 b3A7 Ji3OUa64CO12HT97iSFan6A2 kXE1W1TmWEGyzpytrpqikRB0 BHFuECKxpF50Kc0djYvyPp9m ZCAx ERU0EUBbuFWoA4BnfP0pGeEt YNPgVPFmN8GjfYXhKCngB209 TThuUyZ2OEUkrnGzH7BkMWZd aWdu RjH3a8R4Zc6KUItgrcd3V7Gy PjwvdHI+ET93AMWkQB81fPBp hXIjk5anvPd8WrZiEDRsWKN0 eWxl PSd (more content not included)... [facility] Coding Summaryon 09-15-2023 Coding Summary HTMLBase 64 LyhutkscWMd4rPk+PGhlYWQ+ IN5SKQIcD71mvIGeoP3kR9UL TElOSywgQVBQTElOSyIgbmFt LC8qqDPsARZz IC8+SK9zRTZwJmtuoKZpf3Z8 oII3I01qbx1pGVqrjTP2MPGx ZmTvrnjcv2lezUj5HHhcAiho OyBt QXGdcX13ZZZ0xK37Uu17iZZu oCSnf8znxDv4PzMuJBPoPAW8 yNmiEYepp0TvFKXmK13hyMPq c2U6 SMHjoCaixWEiMxWfjHH8lR1b KMzfdywzl8kznzblYni7mu06 dQDaf7N2qZI0A7ZjtkZ2RIMg bGQg HiuhhRBHdR4khwtuy6uyfcdo QkLmOYPwUMo7JOt0YRLrcKgy BhQnVH52ZTS7JNMuzdZvJ0Nu LWFs wEouMnL4h7X3Wb4MR3HTVhzp V0RVTMPGUNhccDM+UK92yf42 W7KaYiedFtz9LZCiVIS7vBI5 aD0n LQSmPBhap8V1rLZ9L5YppjNc zr6ey5szFCXsBWmtO79lrPXn d8P8GXAwiCG2IQQnyPonFtUh aG93 Oyc+CSElaKfgk7MbDtvhv0xe h8juuZv2VrpfUPPwmaTksAya VVE5k1JaZy0rCZOsgZZ1wRH6 aD0i BeIrMgN9OQgmS619IsOttSMi WnkbT15rT5IbrLS+PHRyPjx0 HLKgpSlwIP4aN2WrLWNzasmq bGVm wDazLO5ePVIgvuhnQNXyzW1z NSOzT9o4PsEiBtT2QOjeJ8Xf PXOpesjkIh10rW5vYoUcLdG1 MGlu U6XgxuH6CAEldXWpNYbbUZI9 Z47ow7X1OOQlADFfSWC0qLP8 sX8ttAefbitfnOZpsBlxovZa dGlj PKnkZOnyJ530EDUniKyoQxJe ZGluZyBEYXRlOiAgMTIvMjcv MjAyMzwvdGQ+ZOPlZZH4bJkt PSAn wTYxWGnsTa1goJcdfKhaJM8r ZZKemeelKXRdvN2pCQIfkKTi iVksOX9iARLabycsp920DeHp MHB0 QIAblBQeO6UqyY2sXrUhZPFo GIDpR6NztXFjVTnhV523CInd EzX4PJMiznJmL8IgXKFxiXtr OiB0 z3J4Gp5Gk8IunqejH2YapKFx TiGiXvseJWi9S0EnKldivLN+ XA26NSDwUH60ISv9WRY4zXqb PSdi IJHkC6WceD1cNgDkYZRzHDMl Oyc+PHRhYmxlIHdpZHRoPScx SHQkFlTsiHajKS3bOy4bKYTm LWNv xOuzkPJxXfJiu5xoSBNiCGyb CT7yzLxaS7KytJM8SDBby2c6 Zm31K22nC5JksUV+PGNvbCB3 aWR0 uU2qJbSdTzV4MKqwP915WbGc pRElNjssy5tvk3vytRv7VhM4 UCJpunIssOdaWQC8o7YxBt85 Y29s IHdpZHRoPSIxNSUiIHZhbGln am1dkU3rIc5+IFNulUW8nHL7 aY1nHmPyDhX1MMhqD873AvUb cCIv Xzfce8axy0mgyTo7ShUdVMXd icQwgVxiOLI8r1PvFv44H1Ex tMaca8SeZnd2nh46lNPex7E5 bGU9 J0CsETJcydtkwGMslXqsTL9y GEYfmedlZYUewL3vXMZfB8n1 AfWqMrF0UQkvC0ScalS2ZEIp bGQg WWCufRMUdP5khzeqq5ilhocg GxGtSDLqKMp0DNr5QVQwqEgm IwKsVPP3KwB1TKA8yBDbjJ7c bGln ajdjeU9wIhb+MLU1eNVhyGVX KK1dVkmhrVH+OPAuTOT3hLvt NMwrVGZncK9nXNFkT3b9SyQf LjA1 KQsrY8AubqI2LNDifMLlSRFh yFCWrV9nmzugg1huiybcDoAk ZPMoQUs9DSp8KVSwvNctKlQt ZWZ0 SlZ9NTI1eBVobF7gjYezehon nU5sMpa+ZcclzMxdEDE9EYo4 E2EvByq1NADpeIruQW2ioBZm ZGlu Zn1tgKtkxYlnIW8xEMTxecfp d083VbIfs4dqJOJclLNiPXvd ISC7S25bj4U6DXBeATBkWBC2 dGV4 nL1hhXfcuzxwaZWgcUperuBe lZeuDAqvSEvoT261NAMjeKmn MlZnNCe5Y9HcZdk8UCHpbEry ZT0n pPNwTWdwRs8noJkbaYoyUX1v DWZdavkyl634QyGpo4enQSKd lOMtUBsrBEX6Z39zg9W1MNGg MDAw WAQ7uPF3oQ4crSgpicumhPQe cEfjyhJjjQsbHAqqSPntA958 XPVtzMekQrXfiQp4Z8HmCnx0 ZCBz uMgzCH0mxAItMKxiZw5tuRha vPsrRZ1gLCWnpcwrl709QcKq q3ywLQGekKMyYJtrGUN5U52h b3I6 SYIiYNHhVFR9fLY9uU7hdPxy bjogbGVmdDsgdmVydGljYWwt MRjfL395QWZwkRyvSrIzxIeg bnQg NSezJGb3K4WqGvmhvXZ+PC90 NJAfQJ74zZQqxZMth6mkzVt7 CfQzNEFlZBE6jDlfEVmyc7Wx ZXIt Y63diAWms6L7FNRsuIceiTXo HnKxkCM8mA9vVLlsfywhv2ev qimyAzrms4jjdm52jO66P48e IHdp ZPMdQQDcTXJwJWDhmIfxqw0s mG0yEq6+DLRcbZL1tCE0zF4z XUAaVyR9RXcdH038RaTonVHn Pjxj t1nye0ctsDg8OxJ1XYQgbyMi zSglSFL2y6AwEz83T21uIZfa LYJwZUMjKKXrQGUytAsagk8j dG9w Ii8+JJBywXV5yHI1wI0mOqZq EbO2GWcaF172GcSlnYJzBqbo G26sM7BbdVP+MPVcRcy8TXEa dHls QK8ppFPgDBwqNa7fCGC6QrHa BrUePUazL2MlWTDidztdexgf iBQ0BRVgIYVciP93Jh2eaRvh MTBw oGQCfM3meqjpf9eyjdwvNfIe YHSkJQr8QZi3FDRlxOmwNsVn SZH9XvX1VBB5fHSknA0ysZfg bjog mL9lM9CwBLMlyawyKq65wG2e OyYiVeC2OEchXjx+RFVSSVZB C5MjRVhYRznaXEjMFA70S1Wd Pjx0 IIVgvBysBQ3ubMAzTOelEv4f hSchxKzuNB9wCKLmktwlNNMe yS0wYNCrrTTflIrzHY4ySBVx bjtm p089ZtMgCMD7PABttLZrZ6Ev oP4kFrIsFDDfMATlU2SffFFt LAprX095CPqzVtV0SRWjecKt Y2Fs GCLrhUxwBdC8u3A4Pg0xOX7u Rx2kBGQ9VU97MK83dXOhy0M0 rGE9R9PgOJHbljcfxpfksMI1 IDAu ONVecQ63rZGuFVpdOq5je9M7 j726ZPVrSNFubL59Hz7izLte GOUuuDHZtT3hnjdwp6ovbuwz IzAw HNOfNXl1DOj3QPOsrVpoFxDe RSN6MjN5JFI9hCQogR2juSbo huvtfY3aEgd+NTYgWWVhcnM8 L3Rk Abj1ZQVurWbtVF9stMKgBPix Iw0lpWmreIwzAL8nBOQnzqcv NHQuyZ4fZNUhsMHrjFboSL0y NTBp clofc551UgPyVJH7IBKhuICe O2OfvF1tZfUwISBtYKNaU2Wx bUYeKLaoX693VSvhVqC4EEXx cnRp V8DrJADryKneJjI7h5N7Zh6H GWuCAQ92CR84nIDoq0O7cJL9 D9WwJFFvecqewpcyhCJ0IJUy MDUw aJ50aLSdTIqiBl6gm5W1z646 QMZkKALwtF93Yb8chSfuTJMs qXGMsU7njejue1htdxpiLzEk MDAw GGo1MKw7DOAcfOchEfTaWYH2 WnB6JVE6jJZvaG5hmUtghkjq yY0wXvd+O5E4O7DfIpospKH+ PC90 KIZnDW78yFPvnOVcg0fghPt4 VmPxILCfGPG6eUnnCHibv6Sy ZMIyR28znKWih8V0CNRahFzh cHNl FzIxaJN6lW5oACyaopvlr3xq pydzAhzml1kvsp27kV89T22l IHdpZHRoPSIzMCUiIHZhbGln bj0i fK8bQm1+RNXxmIJ3xRV3lY9d XyPaEzA4WBfyD896YyXzgSJt Wpyvg7fpi4xssWy3PxZgPMJg dmFs lZwaWEZ9b2OpSa63V02oKRur LLTjDWUqJUCpJOTjnYleer0b sF9wXd7+DT8ab7eqrl59cB40 dHI+ KNDfAPJ7gIxyWMlnNQIjoN1a TWnyFgN8HEDdLsVrpW32eOOb CPytAa0alWbrtElyCX2qSBFt bjtm t028CfMdn4seIQWtkNXyOHrs MBI9X38zi7A9COAzXHFmPMN6 fHT9fW0ckEobzgoorFPzdZcd dmVy pNcaPGbxAUksJ243WYVprRyj LrZpeQWtM0ccccJGZW0vJpdx dGQ+MQPnSDP5tEsrOGkrXRUd aW5n LTNsA1q0ZpQkUgI1RHydR6Hh gmQ4LQKobTGjEHJpsFFGfB4h qklcl5sygcvwCgQcNTFkIYv6 ZXh0 DRCwmNeiByOnJQH4EiA8ECE8 zPZhuI6skXouwguwgT7kLwm+ RklOOjwvdGQ+IBJaHMW5kDtn PSdw ARSwyE5pWPXyV1e7ScFhGiX2 BBxgH7GaqvU3BMShrAQqORLj vEKLeU3rtuzrk2phbsllLsYk MDAw HJp8XFd6MKNncDlzBpIeAZL0 RcW7HCN6qIAloY7zfAifvtow iG0nSoc+TVJOOjwvdGQ+PHRk IHN0 oJgaPMunHHAilZ6xQQGcJ4f5 VkMeVeL6AWibG5YyvyL9IWVl aZDuTAOqiNPUlN3tlkyan3fk cjog OmWxXABcBXw6VJh1OVUcpNqk GkIdPCV1PxT9PAD9pEVotF0o zIkejqpyeT4dGfg+OIG8MQS4 PC90 TL14K6SdFydtpSPykFU+PHRh YmxlIHdpZHRoPScxMDAlJyBz rEszQE0jHj2yKUZrRXGuiWug cHNl OiB (more content not included)... [facility] Consent Formson 09-06-2023 Consent Forms 100.64.198..2020 [id number]#1.00OTG TIFF [facility] Stress Teston 09-06-2023 Stress Test 100.64.198..2020 [id number]#1.00OTG TIFF [facility] CV Stress ECGon 09-03-2023 CV Stress ECG [...] reported separately. Jaskaran Tejeda MD JOB #: [id number] ul Final Dictated by: Jaskaran Tejeda MD Dictated DT/TM: 09/03/23 10:07 Signed (Electronic Signature): Jaskaran Tejeda MD 09/21/23 8:26 am Technologist: ADE [facility] NM Myocardial Spect Multi Re st/[place] 09-03-2023 [...] Garcia MD, V. 09/03/23 11:43 a Technologist: [facility] Provider [place] 09-03-2023 Provider Orders [id number]#1[address]00[address] [facility] Provider [place] 09-02-2023 Provider Orders [id number]#1.00OTGT IFF [facility] Provider Orders [id number]#1.00OT GTIFF [facility] Consent Formson 08-24-2023 Consent Forms [id number] [id number]#1.00OTGT [facility] Surgical Pathology Reporton 08-16-2023 Surgical Pathology Report (NOTE) [id number] [facility] CONSULTING PATHOLOGISTS [facility] ANATOMIC PATHOLOGY [address] [place] [id number] SURGICAL PATHOLOGY CONSULTATION Patient Name: GURVINDER CHAUDHRY MR#: [id number] Specimen #[id number] Procedures/Addenda MOLECULAR PATHOLOGY REPORT Date Ordered: 09/16/2023 Status: Signed Out Date Complete: 09/16/2023 By: Obie Marie M.D. Date Reported: 09/16/2023 INTERPRETATION AT THE REQUEST OF DR. MISSAEL TEJADA, BLOCK D1 WAS SENT TO [facility] FOR DECIPHER PROSTATE BIOPSY GENOMIC TIRE INSPECTOR TESTING. THE RESULTS ARE FOLLOWS: GENOMIC RISK IS: LOW RISK OF METASTASIS WITH RT OR RP: 7 YEAR: 0.5% 12 YEAR: 1.1% RISK OF PROSTATE CANCER MORTALITY WITH RT OR RP: 17 YEAR: 1.2% RISK OF ADVERSE PATHOLOGY AT RP: 18.3% PLEASE SEE [facility]' COMPLETE REPORT ([id number]) FOR DETAILS. Case report, all slides and [...] negative for racemase. Controls are adequate. Normal [facility] Standardon 07-15-2023 eGFR Non AA >60 Invalid Interpretation Code [facility] Comment on above: Performed By: #### 1 [id number], [id number], [id number], [id number], [id number], [id number], [id number] #### [facility] (DEFAULT) [address] [place] [address] eGFR AA >60 Invalid Interpretation Code [facility] Comment on above: Performed By: #### 1 [id number], [id number], [id number], 9724177, 4605937, 1083142, [id number] #### [facility] (DEFAULT) [address] [place] [address] 41112 Albumin [Mass/Vol] 4.5 g/dL Normal 3.5-5.0 [facility] Comment on above: Performed By: #### 1 [id number], 0508253, 7921267187, 4431167, 4325415, 0827756, 0195325, 0010052 #### [facility] (DEFAULT) [address] [place] [address] 47272 Alk Phos 44 IU/L Normal 32-91 [facility] Comment on above: Performed By: #### 1 [id number], 3692924, 4525292352, 5973573, 6921486, 0489783, 1831683, 9789856 #### [facility] (DEFAULT) [address] [place] [address] ALT [Catalytic activity/Vol] 35.0 U/L Normal 17.0-63.0 [facility] Comment on above: Performed By: #### 1 [id number], 7230665, 9298485089, 5724777, 9101016, 7282876, 6324833, 8100995 #### [facility] (DEFAULT) [address] [place] [address] 86671 AST [Catalytic activity/Vol] 35 U/L Normal 15-41 [facility] Comment on above: Performed By: #### 1 [id number], 2059851, 3449092375, 3330356, 6704299, 1134607, 7821768, 0319757 #### [facility] (DEFAULT) [address] [place] [address] 21099 Bili Total 0.7 mg/dL Normal 0.3-1.2 [facility] Comment on above: Performed By: #### 1 [id number], 4446352, 3390642372, 4810171, 5389594, 3232051, 4679016, 9239867 #### [facility] (DEFAULT) [address] [place] [address] 49284 Calcium [Mass/Vol] 9.4 mg/dL Normal 8.9-10.3 [facility] Comment on above: Performed By: #### 1 [id number], 0636386, 3019761503, 0162992, 7949774, 0635393, 4096927, 0059518 #### [facility] (DEFAULT) [address] [place] [address] 66311 Chloride [Moles/Vol] 102 mmol/L Normal 101-111 [facility] Comment on above: Performed By: #### 1 [id number], 0271731, 5187323318, 7015321, 2052967, 6977080, 9640171, 4779357 #### [facility] (DEFAULT) [address] [place] [address] 78927 CO2 [Moles/Vol] 30 mmol/L Normal 21-32 [facility] Comment on above: Performed By: #### 1 [id number], 1908395, 5743940347, 5429718, 4854712, 0075330, 3422541, 0879634 #### [facility] (DEFAULT) [address] [place] [address] 89003 Creatinine [Mass/Vol] 1.15 mg/dL Normal 0.90-1.30 [facility] Comment on above: Performed By: #### 1 [id number], 0414451, 5694826912, 5476841, 2541286, 9587177, 5108059, 2012536 #### [facility] (DEFAULT) [address] [place] [address] 97547 Glucose [Mass/Vol] 88.0 mg/dL Normal 74.0-118.0 [facility] Comment on above: Performed By: #### 1 [id number], 5714955, 9391371826, 4588957, 2798909, 2181523, 3328034, 7554903 #### [facility] (DEFAULT) [address] [place] [address] 07399 Potassium [Moles/Vol] 4.1 mmol/L Normal 3.6-5.1 [facility] Comment on above: Performed By: #### 1 [id number], 2384598, 3640445391, 3312608, 2892776, 7565083, 2973449, 0465396 #### [facility] (DEFAULT) [address] [place] [address] 94663 Protein [Mass/Vol] 7.1 g/dL Normal 6.5-8.1 [facility] Comment on above: Performed By: #### 1 [id number], 3319089, 7490245825, 6673679, 2460234, 0876799, 9581272, 0751382 #### [facility] (DEFAULT) [address] [place] [address] 55107 Sodium [Moles/Vol] 140.0 mmol/L Normal 136.0-144.0 [facility] Comment on above: Performed By: #### 1 [id number], 0322786, 7232980016, 3845057, 4229572, 1084352, 8358682, 0614265 #### [facility] (DEFAULT) [address] [place] [address] 23518 Urea nitrogen [Mass/Vol] 25 mg/dL Normal 8-26 [facility] Comment on above: Performed By: #### 1 [id number], 3410451, 3184771077, 6115001, 7087056, 9696901, 2046773, 0440196 #### [facility] (DEFAULT) [address] [place] [address] 14403 Albumin/Globulin [Mass ratio] 1.7 {ratio} Normal 1.4-2.6 [facility] Comment on above: Performed By: #### 1 012667338, 7020838, 8614542877, 0095702, 3236702, 7294466, 1423531, 8506135 #### [facility] (DEFAULT) [address] [place] [address] 07176 Anion gap [Moles/Vol] 12.1 mmol/L Normal 5.0-19.0 [facility] Comment on above: Performed By: #### 1 202068751, 7622804, 5805104562, 7505008, 4380040, 8426326, 3911716, 2167076 #### [facility] (DEFAULT) [address] [place] [address] 18515 Globulin (S) [Mass/Vol] 2.6 g/dL Normal 1.5-4.3 [facility] Comment on above: Performed By: #### 1 342346201, 4958635, 7185090342, 4943753, 4139117, 9832511, 4448000, 1217833 #### [facility] (DEFAULT) [address] [place] [address] Osmolality 283 mOsm/L Invalid Interpretation Code [facility] Comment on above: Performed By: #### 1 093473949, 9826809, 1688962031, 0290246, 0613942, 1354706, 1353519, 6279566 #### [facility] (DEFAULT) [address] [place] [address] 86037 Urea nitrogen/Creatini ne [Mass ratio] 21.7 mg/mg High 4.6-16.2 [facility] Comment on above: Performed By: #### 1 000961019, 3204196, 7676424350, 2809666, 8491538, 9314806, 8583504, 3213573 #### [facility] (DEFAULT) [address] [place] [address] 87028 GGTon 07-15-2023 Gamma glutamyl transferase [Catalytic activity/Vol] 22.0 U/L Normal 7.0-50.0 [facility] Comment on above: Performed By: #### 1 [id number], 9596695, 9987891999, 6013067, 8034233, 8684844, 8765370, 1278434 #### [facility] (DEFAULT) [address] [place] [address] 78285 Iron Levelon 07-15-2023 Iron [Mass/Vol] 114.0 ug/dL Normal 45.0-182.0 [facility] Comment on above: Performed By: #### 1 [id number], 9249371, 4403819043, 2147457, 5183961, 7977863, 9034678, 5804577 #### [facility] (DEFAULT) [address] [place] [address] 44541 LDHon 07-15-2023 LDH 257.0 IU/L High 98.0-192.0 [facility] Comment on above: Performed By: #### 1 465856794, 4114300, 4234507842, 2771918, 3358388, 7818669, 3543903, 8818291 #### [facility] (DEFAULT) [address] [place] [address] 04967 Lipid Panel Standardon 07-15 Cholesterol [Mass/Vol] 188.0 mg/dL Normal 66.0-200.0 [facility] Comment on above: Performed By: #### 1 [id number], 0177036, 9132317334, 5153384, 9236049, 2082520, 5673607, 6013926 #### [facility] (DEFAULT) [address] [place] [address] 59674 Cholesterol in HDL [Mass/Vol] 45 mg/dL Normal 40-71 [facility] Comment on above: Performed By: #### 1 225275142, 4630250, 8647164031, 9903988, 7605483, 6047027, 9720271, 4347137 #### [facility] (DEFAULT) [address] [place] [address] 68420 Triglyceride [Mass/Vol] 130.0 mg/dL Normal 0.0-150.0 [facility] Comment on above: Performed By: #### 1 089167283, 1446716, 5180817632, 6973577, 0892071, 6103897, 8747761, 0368422 #### [facility] (DEFAULT) [address] [place] [address] 65417 Cholesterol in LDL [Mass/Vol] 117 mg/dL High 1-100 [facility] Comment on above: Performed By: #### 1 679207268, 4267997, 1346482590, 6717579, 3439540, 3294985, 2196133, 9845311 #### [facility] (DEFAULT) [address] [place] [address] 25975 Cholesterol.total /Cholesterol in HDL [Mass ratio] 4.1 {ratio} Normal 0.0-4.5 [facility] Comment on above: Performed By: #### 1 471091294, 6174666, 1228203446, 3685629, 3060576, 1273256, 3196776, 7099561 #### [facility] (DEFAULT) [address] [place] [address] VLDL. 26 mg/dL Normal 5-40 [facility] Comment on above: Performed By: #### 1 120674538, 2059672, 3205610043, 2164864, 2256609, 8354886, 7064671, 5128316 #### [facility] (DEFAULT) [address] [place] [address] PSA Screenon 07-15-2023 PSA Screen 5.97 ng/mL High 0.00-4.00 [facility] Comment on above: Result Comment: [employer] Clinical System (Chemiluminescence) Values obtained with different assay methods or kits cannot be used interchangeably. Results cannot be interpreted as absolute evidence of the presence or absence of malignant disease. Performed By: #### 1 [id number], 7402612, 3703564519, 3963719, 7314537, 5572162, 2193889, 7850595 #### [facility] (DEFAULT) [address] [place] [address] Phoson 07-15-2023 Phosphate [Mass/Vol] 3.2 mg/dL Normal 2.5-4.6 [facility] Comment on above: Performed By: #### 1 [id number], 1734885, 6524920057, 0285014, 2182259, 9101739, 4709057, 6010845 #### [facility] (DEFAULT) [address] [place] [address] 19372 Uric Acidon 07-15-2023 Urate [Mass/Vol] 6.0 mg/dL Normal 4.8-8.7 [facility] Comment on above: Performed By: #### 1 144004606, 9518946, 7744038942, 7015118, 5613650, 3772611, 4812162, 1577391 #### [facility] (DEFAULT) [address] [place] [address] 43256 Encounters Encounter Date Encounter Type Care Provider Facility Start: 09-03-2023 End: 09-08-2023 ambulatory [facility] Facility:[facility] Start: 09-02-2023 End: 09-03-2023 ambulatory Eli Santos Facility:[facility] Start: 08-16-2023 End: 08-16-2023 ambulatory MISSAEL TEJADA [facility] Start: 07-20-2023 End: 07-21-2023 ambulatory Dev Ch Facility:[facility] Start: 12-01-2022 ambulatory JAIR CARPENTER Facilit y:H1 Start: 07-16-2022 ambulatory ROS CM Faci lity:H1 Start: 01-28-2022 ambulatory ROS CM Faci lity:H1 Start: 08-28-2017 End: 08-28-2017 Emergency department patient visit DEV CH [facility] Start: 03-02-2017 End: 03-03-2017 Ambulatory DEFAULT PHYSICIAN Facility:[facility] Payers Date Payer Category Payer Unknown [id number] 1965 Unknown [id number] 2.16.84 [id number] 1965 Unknown [id number] 2.16.84 [id number] 1965 Unknown [id number] 2.16.84 [id number] 1965 Unknown [id number] 2.16.8 [id number] 1967 Unknown [id number] 2.16.8 [id number] 1965 Unknown [id number] 1957 Unknown [id number] Unknown Summary Purpose Family History No Family [...] section and content) DATE CREATED AUTHOR 03/15/2018 [facility] DATE CREATED AUTHOR AUTHOR'S ORGANIZ ATION 03/16/2018 [facility] DATE CREATED AUTHOR AUTHOR'S ORGANIZ ATION 11/28/[address] [facility] DATE CREATED AUTHOR AUTHOR'S ORGANIZ ATION 09/17/2023 [facility] DATE CREATED AUTHOR AUTHOR'S ORGANIZ ATION 09/21/2023 [facility] FOR RECORDS PERTAINING TO PATIENTS WHO [...] BE BASED ON THE PRIMARY CLINICAL RECORDS. [employer] provides no warranty or guarantee of the accuracy or completeness of information in this document.
== END 2023-12-16 10:13 | disposition home or self-care (01) ==
LOC: LAB 10:12
PROVIDERS: PCP Family Medicine; Visit Provider Physician Assistant
DX: T81.49XA Infection following a procedure, other surgical site, initial encounter (principal); L02.415 Cutaneous abscess of right lower limb
CPT/HCPCS: 87070

== ENCOUNTER 2024-01-03 15:09 | Outpatient (OUT) | payer OTHER, SELFPAY ==
--- NOTE | 2024-01-03 | XR_ITS ---
The [address] [address] Patient Name: GURVINDER CHAUDHRY MRN: [id number] date: 1965 Sex: M Assigned Patient Location: Current Patient Location: Accession/Order Number: [id number] Exam Date: 01/03/2024 15:10 Report Date: 01/04/2024 09:10 At the request of: JAIR CARPENTER Procedure: XR foot RT min 3V PROCEDURE: XR foot RT min 3V COMPARISON: 12/16/2023 HISTORY: RIGHT FOOT PAIN FINDINGS: BONES:Talus replacement. Normal alignment with no acute fracture, dislocation or mechanical failure. Plantar enthesopathic spurring of the calcaneus. SOFT TISSUES:Dorsal soft tissue swelling and subcutaneous emphysema with soft tissue defect consistent with known debridement EFFUSION:None visible. OTHER: Negative. XR/XR foot RT min 3V IMPRESSION: Dorsal soft tissue changes consistent with known debridement Electronically authenticated by: JOSIE DICKSON Date: 01/04/2024 09:10
== END 2024-01-03 15:10 | disposition home or self-care (01) ==
LOC: EC 15:10
PROVIDERS: PCP Family Medicine; Visit Provider Physician Assistant
DX: M19.071 Primary osteoarthritis, right ankle and foot (principal)
CPT/HCPCS: 73630

== ENCOUNTER 2024-01-11 13:00 | Outpatient (OUT) | payer OTHER, SELFPAY | END 2024-01-11 13:01 | disposition home or self-care (01) | LOC: PST 14:56 | PROVIDERS: PCP Family Medicine; Visit Provider Podiatrist Foot & Ankle Surgery | DX: Z01.818 Encounter for other preprocedural examination (principal); T81.31XD Disruption of external operation (surgical) wound, not elsewhere classified, subsequent encounter; Z96.661 Presence of right artificial ankle joint ==

== ENCOUNTER 2024-01-13 08:23 | Day surgery (SDC) | payer OTHER, SELFPAY ==
[2024-01-13] VITALS (23 sets, daily range): BP systolic 104–152; BP diastolic 69–94; PULSE 58–97; TEMP 36.1–36.4; O2SAT 76–99; BMI 34.2
[2024-01-13 08:36] LABS: Glucometer 104 mg/dL (74-106)
--- OUTSIDE RECORDS SUMMARY | 2024-01-13 08:44 | XMS_ITS | CCD ---
Author Organization [facility] Care Team Providers Care Customer Relations Assistant Name Role Phone DEV CH Unavailable Unavailable [...] Translations: [Keflex] Drug Allergy 09-20-2009 AOF [facility] Repository Problems Active Problems Problem Classification Problem [...] Coding Summaryon 09-16-2023 Coding Summary HTMLBase 64 CxycrgwxODu0sEx+PGhlYWQ+ QY4TLCLmZ14zrLPqpG6kT9ZA TElOSywgQVBQTElOSyIgbmFt AM4waCKoIFQu IC8+YV5rZVUzHystxPWqe0L1 mBA3I20zdj3vQRqdtTL0CPFl EoHphfsvj7pswZe5WAurNyxn OyBt AAUqqB53GJM8kR87Kq93tQOj vAQos4bypJf9QlQkEWDzHCW6 vOxgHIroa3SyZXMiK48gqZMb c2U6 JOQkfCtjdINkOoMnbIG7hS4h XTxyozryb6dsypwbFei1kx65 lFBee1W8vDV2Q5ZlmmD6MOXj bGQg IobqtXLHlM5fvlzlo2ohaotk SeVrEULeQVr2ZKu5USEowOzm UvFlAN70ZJX5PSLgfpCrP1Oy LWFs lYvrStP1g1M7Jw4JE1XVUrpd M4MEDZGICItjeSJ+PH14jx06 C7JoJmeqFld1AHLsXIU9xVL3 aD0n XYIdOUkdg9O2iGJ8F3CjwoSz do8sg9qmIWCnOWxdU33xaEKb l8N9FULchNI6UDHwpBnlXhVc aG93 Oyc+DDJrtXypr0JnHtegb5ig f8tncAs8VasdWCEoqsPzcNxu ZKQ2h6KgYu0bSPCopLL3hFO8 aD0i JbTfJsA3JRllM428PlOkjTFp NkkvU48eD1OoqMJ+PHRyPjx0 ICYvxSmeAO4mP8IxLOOwciqy bGVm oDuvFT8eGOOubrakVHDbaF6c TEOnY5e7CjQaYjB8JPzxX6Wn BGXslhquEf43hM7qVaQzPyI3 MGlu M0GeqlU8LTEuzISgCGywDVO6 Y01pi0F4RUFcTNOaSTE0tJV7 pA0ugCmrxkolaJDbdDwrkzUn dGlj VIswKVerI536SOSybZjlPpYh ZGluZyBEYXRlOiAgMTIvMjgv MjAyMzwvdGQ+XNBbKRO7kRmm PSAn cQLbKQesVt4diYwkqRxdVC1a VCNsyvzpVTNszK3pHVDfoPTf oXzlFS3qZRNwwmrzd851GkNl MHB0 EZLqdWWkH8HqhL4kOaBeJVGe ZYBwV4JxtUOrVJsyQ825KEsc UqN1IOErzoTeM7AxXRIjgIdp OiB0 d6V2Ck2Fq9SsdilnX8ImySPz EhIbSeckANn0Q5AyAqxtcEF+ YJ34VGFsHO88JWh9KQW2qZmu PSdi DAWuS2LohY3kZzJoCZRnHBDe Oyc+PHRhYmxlIHdpZHRoPScx UJEtAoVboTogLA7dIn6sLNBp LWNv qHwevIGkVqZjy6xzHMZqOJgn ZN8mnIccK2ZnwMZ0EDFwu2l0 Ef01E29sU1PsoHF+PGNvbCB3 aWR0 gO7vJhCqNuL6MStdG284AgYj dKBsCsvvx2qhi2ipyRd1AtP1 DGSafyXdnCqeBPX5y6AxOp88 Y29s IHdpZHRoPSIxNSUiIHZhbGln bk9sbM7kGt2+MYOoxWN7oLJ3 mI8lXkEyZnN3PCfvJ700NrXb cCIv Itoyj2fnk7crrIx3LoGfTASj lgCkdScrFVA4i8EyYh12K9Om nKbgm2UlZhc3yu49yOYls7J1 bGU9 B7JkNRJwgxhtdXGffWhvMI5t MLInnswiFOJqdD9wZCSmV7s4 QuWiCnY8DGozR1UdjzG8SDGa bGQg DZZqpJEAaP6utbtnz3ejupqt CjDqWVQnFGn5EXq3CGEsaAix AaNvIRQ8NrS3CNV6jBExsW0i bGln dlqyyA2eLod+AYB9pFLxpPRL AB4pHlyijXM+YUNaORX3yIrg DSmzVYAeyT9kFLAaN6a2PeIe LjA1 MInoA9MzxmE8RHKqpPVkTAYl pPQIcW1ygpbpb1mltozrOqRh TRXiYKh1RNx2ZIErmTviRuYq ZWZ0 TsI6JFN3iTKtiH5egVgtkoan tO9xNsh+PvjzbRhgPSP2HEe3 B0RhViy2CHPraBeiNP1qnVEs ZGlu Za3voLcafHikDZ3uHDDzdrqp n996IkTot0leLDBhqQFxFIvq TEP2A69uu0I0QENpXSZwBXP4 dGV4 xW6slVgbrupcmBBczXvooxDh kBkdIIitRTkbN293WZNptGzl FdInFVx2H2BfXkn1OVDbfHab ZT0n vJCdEZpwIa7xrOkyyRpmDW9c QUZhubbja806ZyUqs1ynXLFm aFInTJssVQS9Q89cu3U1SIZj MDAw ATD1pVQ6iP4cvLyjrdipvXGi sEquxnMqzSlmFSuzAUouO369 HXYxwShaNvErzSf4K3UzAol2 ZCBz sWrjVP1rcDAbHOdoWa1paJxh sRaiLN4jDMZwhjjje280AzTg y1keTVBgkVWfXKmaQZA3K21o b3I6 ZNTkWBWhACR1fJS8hK7lkOmu bjogbGVmdDsgdmVydGljYWwt IJspQ339SZApgHwyEkPnaKec bnQg EAxtRTd5S4BnMpxntUL+PC90 KMOiMB25gUDrzBGvu0beyGp8 NdGaYUVvVDK7eZczOOzjo2Ta ZXIt K75atJPtt5C9TILydZjvuAQs BdAkxKA1hS9yUWeuubhuz2dc guwdSwrvu9eyxf11bI72D17f IHdp DGNcCFWmZJHkKDHqnGbhyx7b gB3xAw7+NDQrfOS4tQS5jI3v YBQrFpG8BIpnJ733GdVbhJWe Pjxj y2hwz1pdnQw8WfN1AASjseVl lXagXMT3r6LbVn06O88zOIra PLHcPZVeZMMpZWOieBcasi9h dG9w Ii8+ADRkcLL3aXE4rH5hDmPa XhS2KDnsR959XfTkuNIzUtrb P88iD3JnzHM+XXFnDoj3ZIAp dHls OQ3jqDNoKSzdHh8hLHJ2NkZm YuPmKOqxQ8NsTKSgszdgxcoo wXF3GZJwUFOmaS50Hl5jeGot MTBw aCGPmF8vniudr9ikkaowNlUa FXRtYUs6DKw7RCKwpLbcKjFw BCT2QqI9UMT1cPYqgT6fuDfh bjog uX8cE5SeANMvczksMr62eL4i XhQvBjK0CLxyTbq+RFVSSVZB Y5YqWVgZMalxCKiSOR12Q8Gu Pjx0 AJUicManZI4zyFIfIKkhXd5s uPglvPuyCC0nXYXjjbqdGWYj nV6nITOyjSQfnAjeJC2pYDCi bjtm z299FwBlXVG5QYNkhICnY4Dk oY3mPvBqUBFqLLGiK3VemTOa PEuzN070QXkmRaY1TQHqkePt Y2Fs CEMgnInhUrM6i3F7Dl1nLT5s Tu9aKAW1UJ33XA12fQBxd8V0 pKF2Y8SdGCAkyjfxxtgjpHS9 IDAu RUHpuE22iARvSVzkSw5wh7H5 f138UHDbGMPnrJ72Cp4xuJwp MTPzaZCBdL7gpslik0tvprkc IzAw UGUmNSw1RKz8JRCabNiuRkGx VJB9WgQ0XXI6aEFdvR9dmIec sdvwsM5zXyq+NTYgWWVhcnM8 L3Rk Dkk7WMQinGfgDC9yvFBrKFgq Dy9ufHbyaCvfKG9pQJMrmsri VMNcqB8rLHTncSQnwAsdZG1n NTBp iabxp251WpNeYNW4QVAfhJVw M2HodA5cFkTmMOHvBIBvX9Mx fXHqWEnfY338CPztIkO0BLXo cnRp E9AtZIIkhOctTwK8k7Z3Pz9G ZZiEBM68DC05qOCgb8H0qSJ0 A5TdHPXtggrnwkehrDM0RCMt MDUw oD23fBAnDQdkIa8et3J4p527 CEEkPKWsdE37Qr2hhDafHTGd hYICmY5jspwsa4cxzntwOmYh MDAw RCy8TBh7PRCgjDhxZsZoHVI9 DkM8PFP4jZYroF4biRnacwtt sX2fZvx+O3K7zUT4qVIcwLHn biBh IEJlZDwvdGQ+SA55on82Z3Ga TmszWbj2HTSjDEK0kUT3cU0v QYGrKWgud7E6pPQ9I1XyatRg ci1j a8bxBROwQJhaZ33heYOpp1L0 SCEhrBR1VUDihHxmXmYqsQ71 Oyc+WEGlnWjjc9LgSwquh9fi d2lk kTv9NtHlSARifqApeCjcZOZ0 w3BzNv99Q16oPCtlPNXdJKGj KQXhAZSygXfeez8jzW3qOu5+ PGNv jQB7fGS0tU9aRsAjLyM0RRpw H139RtIhvXAcQidln1tri2rx mQi5NhTpVIKwetZlyLibGGG8 b3Ai Kp11N1DmgWkkr7QhUsy6bh36 cMKsy3B3bFH3K4SqYUFmitsy rOTwpAhjJI6vJRHqgdirVCSp aW5n CMOtK3z5WnBbWhT2KMhzP3In fxH0SGEcaDBsKRNhhGQVoA6d nssox8iovlueEwDsNQRgJMo9 ZXh0 XSFjjMlxZhGwJAT5XqH4UTV7 uJSndC2nkOwzdzwjfE8oLbe+ HQk5j7nfhBLlKF6jxJG2KT19 ZD48 jWCnq3V5qXR1E3ScWHNbhcgn ebvobYW5VYMnUIJauX29Ss1k tQrfRc1fFVTiTAY2NEFveFIb O2Nv aY1eAhQtQNDlXBQmZ8RblNVv QNivT695GFizFaN7DQPpkzIy R8SxVHHfnMzjUwA6w7T2Io6C SU46 UU87GA11lNNli6A4mYQ1A8Bw SHUoqaokyenvaWC7YGRnYNTz gG72Qy2ecRyrSf1iEOZqGVR8 IFRp xQGfJ8IxaK0qKxAoZAClTMNu Z1KtxMByRGqnM531IUspCqJ3 OFWzwjRiX8YvZMAcjMjuOeK5 b3A7 Mj5DVz59FC98JH04qOFhb9T4 lKG8C4AwTCXcauufewuhvHO2 OCEjMJUhdF13Ty3okDhdRq4t ZCAx KFV8BXChqFTpH4XtrL4hDtWl JRVgWZVsP4OzgHKmINcnN270 AYysCtF7ZQQutlYnS7LbUIBl aWdu UiY4u4A3He3ICPeipsr5T1Jm PjwvdHI+CL59POFlKL47aSJm cPIxx0qyuQy1UpTbAEQbOLY4 eWxl PSd (more content not included)... [facility] Coding Summaryon 09-15-2023 Coding Summary HTMLBase 64 WopjqosjWSj9bMl+PGhlYWQ+ YE9RXXJvY07jmRNuuK6gV2VZ TElOSywgQVBQTElOSyIgbmFt BN6vmLGgCRWp IC8+PF4cHWOhSzflzUHaw7L9 rCD2C61zmo5nAAamrCG7UZNy PgYatwgwe8maqYg4SFkvDicc OyBt RTYvdZ43CGN9mN65Nz42xASv pFFhl3jziWw2MiNuXYBkPCU6 mTguHBusa1KfBZVkM52unZQu c2U6 INRzkEaijAWzVqJiqZD2qL6x BVgjspegn0xlglarQei0it52 dHScr4B1lHQ8Z2HolsZ9PFJe bGQg DcjcvCRNgB4gdowxz4tiyeuu KvIxWBAsXZl1GUs5BCNzoOoz DbVdKE02FHZ9GSMuzjKoY0Ob LWFs cAgaGrH4q8J3Mh9HN6RPRvuo H7EASTPAPEpgcIF+RZ31ce34 A8GqHeutWut6UYNiUOL6cWG7 aD0n AYOtLLrqg2O7oRD9M9NkdwOb uo8lf0dqIPIcCHvkD05rjVWj i7Z7KEIkhFY6QCKfjJnjSrUq aG93 Oyc+IXNcwHnkc5DsEirha5sj y0fplWn8ZummAKFtbaDgwJct GPO5p2QqZp2yKGFkzYF4jGG7 aD0i LfYcDxQ8WJufX038WoRktDMg LnqtD55oH1BndQJ+PHRyPjx0 ARSxxWfgQJ1dG6MaNWDcbcot bGVm nPngTR0xBUOignivGREprC3c AIIfL4o1KfBuDjZ3KYfcD4Yc PUJwfjbaFz99nV8bRpTnMdE2 MGlu R6LlblF5TOQhtQScKRqnNCC6 Q13na4O2IRNeMBIhOGJ0mNH2 lV1qfFfbzqbtyPJbnFhybkDm dGlj MLtvSHyxA105WWMjmMgpNkFm ZGluZyBEYXRlOiAgMTIvMjcv MjAyMzwvdGQ+NYWsUCI1hQbn PSAn nFTsUJqdSl9yiXbzgPxnAA0d QMDaonufWWAcmZ2fJGYmjYKk oIlyBQ7vKDAygddwk680BoZe MHB0 OJMejIEuZ5VceW7aPkMxCBPt PEPpJ8DpnYOkTDeuG164OZux NrM5ODLpssFeE0AuZMLtvUnj OiB0 i7I5Ez1Hw5LeplvzS3RtiOQu VxBqSnyoWKc8G8WtXekvuGH+ DE93XZXoCE60NTt8LUL5aJgt PSdi MTZlJ1TcgN1yGbUfNMOyGFIp Oyc+PHRhYmxlIHdpZHRoPScx YILuHeLhiBvlGY6yXv4aDILr LWNv pYqahBRbRkCoi2lkRAYxVBvn IZ3vfPoxH6OipPW3RXZue7w1 Ku29R10gN0CtiAU+PGNvbCB3 aWR0 fW1oAiPwQhA9FFzhR105JjNx sYXzGhwxz8rcx4kuqIb7StW6 ROQemyZdjHofSIW1y6EnXr53 Y29s IHdpZHRoPSIxNSUiIHZhbGln tj5jaT5cDk3+ZFJrsQE5yKR7 aJ0qPsJlYvE4LZigS836WkRs cCIv Uvgyt8dgt4pqaEn9ArSyAKBl noRwuDqzQUT5s1ZyZz75H7Ix nWwwd2InGfy5db80wZDoz4N6 bGU9 H8BxVQBpjhyqcDBdhWmrDF8w EKPnpsjuGRVvlB2wXSLgJ3z0 MjXyPmA6EWrfD6VsglD5CTUf bGQg XRNhyVHMpB6uxknqt4woeohy UeAvWWKsTZe9XGi6SYCoqJnz UfUlXXD2LzT2OTH8lNSfaR8k bGln bbxgpB5eEjv+VLA6uQPrcKJU SW5zPvewhDX+JZAtTJK2pVwe QErbBPEteW3lGPZqN1p1YqTs LjA1 QYykH5MnreG6GYVtjJEuRLNe bQXAgF9anmhhl2anwlojWiGc PJSmGFs5UDs7APPboAgaEbDa ZWZ0 SbN6VLP7rDFrqL8scXxlfopj eV3wInm+LjrquKosUOM1WTq4 F0PrUfa8RPCnzKytYD3rxWId ZGlu Pw9prMpylLgtEJ9nXTBludbk d087GdNpe5pwAYTpuSTqTIcq LXL3X43eu1H4CLItLIDwOEB7 dGV4 rE8hxCkermvoyDZywFabhaCr pSlrGQaeVFrzN974DFQfxAqo HqApVUv0P1BmIhh7LOHhmMqz ZT0n hMLeRRepOr0pqMvygFwoMK9b HQCoefatm959QjNvh1ncIZNe uIYuNXhnMRL3P27sw4B0CGLm MDAw JZE2pPA0nT4spFqlulwyuNYr qPpjlzJrlOlbRFrkFIjnZ018 EHKguSbeOsAinEh5V0XqYmb0 ZCBz tHitOV8taOOyDUxdIy6ptQih sWknZK2uVAQiugmow713HzGl f8uzAKGelGHiVVznSFY8J33b b3I6 ERTpYTYlKZJ7gIK2lS9zpHoz bjogbGVmdDsgdmVydGljYWwt TRlvR483MTOteHznJnVefSnd bnQg UZgdLVz7G1QjUkaenWK+PC90 GLQhLR91oRBalTBri1qlhVy0 YsAgTWKnDKE6wRqwJIrzg8Og ZXIt G92nyCMus3J0DEXuaGeryHUi QsZfzNX4qX5lFVvvuakjs2qx rrwrWrswn6tyud09vW00N01m IHdp OWNtWIIkPIAsZVFskEdcsk9o pU2aBw7+POLyxVZ0zDL2iU1x HQXvAbE2MQuaN853XvBoxRSq Pjxj a0uqd8gucEo9PiU6NWKsvbKb qVnsPNQ7e2NaMh43A31xXSkb EWKoOBGmKEWxDTBrvAwdti9m dG9w Ii8+YJPmfBY5rIE4cK3iFhUx HtW2IDgqQ486GyVhiGShXdjf C94vY1CtiLS+IQHaKsr9EVFx dHls OG4riKIxQSzfOb2zRVA4QfEm UaCsDUjpT9EpNBSxwauvnbdg mNZ9RHRhDEDvkS25Km4jiCyt MTBw iYSQyO6gcawuz8ucdmtlTnAx JEEiGHh8NUq5PXWkoAgbVnXo QMG4CkE3QII6jNRfjV2qoJkd bjog aZ1mC1EaLKPwwwdtBi67aR4x JsMkWcA6FLheNap+RFVSSVZB A8DeSUzYKloeJWrUBJ47X3Id Pjx0 NDQweNabFW9xyYMvHFulQr6a cRzloKjyAA6bHSCzfzcvWXUo bG3vJWFidUDgnMudTI0zWJGr bjtm s247JeVdGBO8MKPmjMTeE1Pv zB3oQmSbADXnXWPlN6WybAVd OUrzO594YOyvAuP1LLHmjhIx Y2Fs UPXbtLbpClC5n7W2Tc5kCF7u Nm7oWAD7NR07RL17uPLqu1R4 cYV4L5SvWAQeayrvzjzslVW0 IDAu MCCgnL95hXMhKPizSi1lg4H6 t793ENQgJIIpgZ93Zn0lrOea YLUhiPOGeA5qxnvhf2zhshft IzAw MESaJSg1QQw6NUJqxOdjCwNk SHR5PjV4DOY2nKUxeS1vnTuu nmlkuE4eXag+NTYgWWVhcnM8 L3Rk Lpi1HZXxhTfxPR7nfSDyNHco Pg4oiWzrxGkcUK8zCCNjbiac FNQokN3cNQBklYAveIqaBA1n NTBp rbneg619QfJmCEF1QQLiyHBl F8YkgT8eUtKlQJDcEOLaE8Ft vXLsCYhpY907KZtnDkJ0KKRw cnRp Z4SjILSvmSimSsG7a6B8Fq9D VXvRMV65TT45gPClj3E8mME8 K0UdPCDczdiiftguuBV9DPEc MDUw mW34mMZuGYxmMw7gc7F2u031 OPIpOSYgzY00Tb8eoItwXRPe aROPzC6slrqff3fbrbkaGnUt MDAw CTp3IBa1PCGcgLhsCxMoIXS0 HoH2VAY9hKHqqT8buDehcqqv jD0iIbt+J5T2J4LtAxyydDN+ PC90 UKTiDE10kJNkaLZnq6fgfHw2 JuGsDWKgVVZ8hTbsBAnxd3Ya KTNmA75wzEMfe7C3IIYpfIjn cHNl EmIwwUD1mI0qBIudvpaxi2db nmryCgsik3hpmw73uI43T23v IHdpZHRoPSIzMCUiIHZhbGln bj0i gN9fIf2+MGYveXJ9zAP4bW9n CtAgZrE8CXjvR735KePkaTPw Caifc5fdc6rnvBu8TtMlQUVc dmFs xTybNEH5o1NhRh13M55tCWmc SXLjYXAkVVBfHIRnvLituj3e kB3mGe8+NY7ad5zlku97dE86 dHI+ YNGbRCA0hWlkPUbkMBWcjO9w IJbmYtK3XKBkDmZjtS56bXAx JRxoVg8erFvjmQioCP4jSBYk bjtm h307KhWye6bjBUJwuJLaLLcl XCM9I30xj6J6UXGbPAIbPQC8 aCW1gO7kySkhhryjvQCeyGok dmVy qXhcSFweLUfgP706GORqoAlm HzIrnZFjN8boyrQOEE8aHtda dGQ+RKYrHGX0kQkzSJkmBOOn aW5n PMWcP2i9CuEeQhB1CXwxE0Em taW1GMDtkNKmBIRhhARRsB3i jrsnm6upgbljSpXoTDLtNHj5 ZXh0 CKFmmPjcGvEuJDW4FvQ6PHY6 iUKyhL4uiVzqryvhxC6tEor+ RklOOjwvdGQ+XBTmIQR2hLhu PSdw KQCzlM7hHVNhZ4i6NfIsEvB3 FPjnX6JgnwY4LIHooPMeNGUy cTOYhU5cjwpkm0cqctlqUhLx MDAw RDl9KBi1MXOztUxuQdWxZGD4 SwH0HHN4lTHmnQ3pkJonklcv bZ1sKwl+TVJOOjwvdGQ+PHRk IHN0 jJnnURkfJNOiqZ3fJNBoN1d4 NbHcQuN7CZnmD1TibbI1XFWz wXMpPDOxsJXNcZ8lcemqr7na cjog KlLqLEFjPEj0NBz2RUXtiMht ZdHbOZL8QcR5WLV1tAUtmC2g cQsnztkqdS3aFoa+HCJ1CWO1 PC90 HK29N8RpOqfteYBuiYU+PHRh YmxlIHdpZHRoPScxMDAlJyBz dWlvWS4zWq3tVPZrTRQqdNdm cHNl OiB (more content not included)... [facility] Consent Formson 09-06-2023 Consent Forms [id number]..2020 [id number]#1.00OTG TIFF [facility] Stress Teston 09-06-2023 Stress Test 100.64.198..2020 [id number]#1.00OTG TIFF [facility] CV Stress ECGon 09-03-2023 CV Stress ECG [...] reported separately. Jaskaran Tejeda MD JOB #: [id number] ul Final Dictated by: Jaskaran Tejeda MD Dictated DT/TM: 09/03/23 10:07 Signed (Electronic Signature): Jaskaran Tejeda MD 09/21/23 8:26 am Technologist: ADE [facility] NM Myocardial Spect Multi Re st/[place] 09-03-2023 [...] Garcia MD, V. 09/03/23 11:43 a Technologist: [facility] Provider [place] 09-03-2023 Provider Orders [id number]#1.00OT [facility] Provider [place] 09-02-2023 Provider Orders [id number]#1.00OTGT IFF [facility] Provider Orders [id number]#1.00OT GTIFF [facility] Consent Formson 08-24-2023 Consent Forms [id number]#1.00OTGT [facility] Surgical Pathology Reporton 08-16-2023 Surgical Pathology Report (NOTE) [id number] [facility] CONSULTING PATHOLOGISTS [facility] [address] [place] [id number] SURGICAL PATHOLOGY CONSULTATION Patient Name: GURVINDER CHAUDHRY MR#: [id number] Specimen #[id number] Procedures/Addenda MOLECULAR PATHOLOGY REPORT Date Ordered: 09/16/2023 Status: Signed Out Date Complete: 09/16/2023 By: Obie Marie M.D. Date Reported: 09/16/2023 INTERPRETATION AT THE REQUEST OF DR. 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 THE RESULTS ARE FOLLOWS: GENOMIC RISK IS: LOW RISK OF METASTASIS WITH RT OR RP: 7 YEAR: 0.5% 12 YEAR: 1.1% RISK OF PROSTATE CANCER MORTALITY WITH RT OR RP: 17 YEAR: 1.2% RISK OF ADVERSE PATHOLOGY AT RP: 18.3% PLEASE SEE [facility]' COMPLETE REPORT ([id number]) FOR DETAILS. Case report, all slides and [...] negative for racemase. Controls are adequate. Normal [facility] Standardon 07-15-2023 eGFR Non AA >60 Invalid Interpretation Code [facility] Comment on above: Performed By: #### 1 [id number], [id number], [id number], [id number], [id number], [id number], [id number] #### [facility] (DEFAULT) [address] [place] [address] eGFR AA >60 Invalid Interpretation Code [facility] Comment on above: Performed By: #### 1 [id number], [id number], [id number], [id number], [id number], [id number] #### [facility] (DEFAULT) [address] [place] [address] 31694 Albumin [Mass/Vol] 4.5 g/dL Normal 3.5-5.0 [facility] Comment on above: Performed By: #### 1 [id number], 0382704, 1965593344, 4024132, 9692872, 5254314, 8409825, 4831474 #### [facility] (DEFAULT) [address] [place] [address] 60106 Alk Phos 44 IU/L Normal 32-91 [facility] Comment on above: Performed By: #### 1 [id number], 1221423, 0582654536, 7265073, 2547556, 4829260, 5115979, 9415546 #### [facility] (DEFAULT) [address] [place] [address] ALT [Catalytic activity/Vol] 35.0 U/L Normal 17.0-63.0 [facility] Comment on above: Performed By: #### 1 [id number], 5061347, 9383484395, 0114391, 8137545, 5329642, 7486615, 8423649 #### [facility] (DEFAULT) [address] [place] [address] 00147 AST [Catalytic activity/Vol] 35 U/L Normal 15-41 [facility] Comment on above: Performed By: #### 1 [id number], 0612899, 9904651998, 6507434, 9583727, 4884037, 8122482, 9607746 #### [facility] (DEFAULT) [address] [place] [address] 98984 Bili Total 0.7 mg/dL Normal 0.3-1.2 [facility] Comment on above: Performed By: #### 1 [id number], 6426790, 8596934500, 9553701, 0832531, 7177781, 4671697, 4566922 #### [facility] (DEFAULT) [address] [place] [address] 84637 Calcium [Mass/Vol] 9.4 mg/dL Normal 8.9-10.3 [facility] Comment on above: Performed By: #### 1 [id number], 1951605, 9203978359, 3747779, 9754721, 3015831, 0215557, 4931169 #### [facility] (DEFAULT) [address] [place] [address] 03820 Chloride [Moles/Vol] 102 mmol/L Normal 101-111 [facility] Comment on above: Performed By: #### 1 [id number], 5150565, 8535450605, 7852617, 3211728, 9838827, 2715783, 0216796 #### [facility] (DEFAULT) [address] [place] [address] 21525 CO2 [Moles/Vol] 30 mmol/L Normal 21-32 [facility] Comment on above: Performed By: #### 1 [id number], 3999201, 2080987180, 6297499, 2576544, 0988200, 2547131, 4151104 #### [facility] (DEFAULT) [address] [place] [address] 46648 Creatinine [Mass/Vol] 1.15 mg/dL Normal 0.90-1.30 [facility] Comment on above: Performed By: #### 1 117561092, 1436713, 8540696461, 8350650, 0541314, 9363612, 4978212, 6818425 #### [facility] (DEFAULT) [address] [place] [address] 79386 Glucose [Mass/Vol] 88.0 mg/dL Normal 74.0-118.0 [facility] Comment on above: Performed By: #### 1 [id number], 6067965, 5943272657, 8249637, 7056136, 6518608, 0597889, 1107951 #### [facility] (DEFAULT) [address] [place] [address] 96798 Potassium [Moles/Vol] 4.1 mmol/L Normal 3.6-5.1 [facility] Comment on above: Performed By: #### 1 093988849, 3273356, 2161481575, 7183852, 0403239, 6962885, 2929980, 8115171 #### [facility] (DEFAULT) [address] [place] [address] 80258 Protein [Mass/Vol] 7.1 g/dL Normal 6.5-8.1 [facility] Comment on above: Performed By: #### 1 806147896, 5571844, 6041772549, 6767341, 9722698, 1603204, 5581956, 4247458 #### [facility] (DEFAULT) [address] [place] [address] 22046 Sodium [Moles/Vol] 140.0 mmol/L Normal 136.0-144.0 [facility] Comment on above: Performed By: #### 1 353768421, 4376012, 5947515862, 5197001, 0779288, 1902195, 9673401, 4611939 #### [facility] (DEFAULT) [address] [place] [address] 57412 Urea nitrogen [Mass/Vol] 25 mg/dL Normal 8-26 [facility] Comment on above: Performed By: #### 1 171707115, 8586640, 2924277279, 8235175, 8800280, 0775972, 8403613, 9732962 #### [facility] (DEFAULT) [address] [place] [address] 26388 Albumin/Globulin [Mass ratio] 1.7 {ratio} Normal 1.4-2.6 [facility] Comment on above: Performed By: #### 1 601009062, 9210764, 9727812732, 6441216, 7677642, 4351546, 6170800, 6485041 #### [facility] (DEFAULT) [address] [place] [address] 77395 Anion gap [Moles/Vol] 12.1 mmol/L Normal 5.0-19.0 [facility] Comment on above: Performed By: #### 1 180404461, 5488808, 2675819651, 7393010, 3564177, 4340564, 3704501, 4765111 #### [facility] (DEFAULT) [address] [place] [address] 45707 Globulin (S) [Mass/Vol] 2.6 g/dL Normal 1.5-4.3 [facility] Comment on above: Performed By: #### 1 635795379, 4139369, 5245961411, 6455617, 0844966, 0696708, 9765024, 1134706 #### [facility] (DEFAULT) [address] [place] [address] Osmolality 283 mOsm/L Invalid Interpretation Code [facility] Comment on above: Performed By: #### 1 670804777, 3619753, 4536827352, 0858767, 3320507, 8511645, 3690707, 3255986 #### [facility] (DEFAULT) [address] [place] [address] 53969 Urea nitrogen/Creatini ne [Mass ratio] 21.7 mg/mg High 4.6-16.2 [facility] Comment on above: Performed By: #### 1 370787037, 7455631, 5627820831, 7100809, 0996193, 5519711, 4107748, 6280811 #### [facility] (DEFAULT) [address] [place] [address] 63609 GGTon 07-15-2023 Gamma glutamyl transferase [Catalytic activity/Vol] 22.0 U/L Normal 7.0-50.0 [facility] Comment on above: Performed By: #### 1 863649117, 0560774, 4512271440, 8134241, 4892723, 4134584, 3583582, 9550851 #### [facility] (DEFAULT) [address] [place] [address] 00369 Iron Levelon 07-15-2023 Iron [Mass/Vol] 114.0 ug/dL Normal 45.0-182.0 [facility] Comment on above: Performed By: #### 1 306104063, 4851468, 1771190794, 6848799, 4719031, 8433018, 6432295, 7625391 #### [facility] (DEFAULT) [address] [place] [address] 75029 LDHon 07-15-2023 LDH 257.0 IU/L High 98.0-192.0 [facility] Comment on above: Performed By: #### 1 199862489, 7909741, 7248304418, 9582719, 1184675, 1212107, 7308246, 6298856 #### [facility] (DEFAULT) [address] [place] [address] 40335 Lipid Panel Standardon 07-15 Cholesterol [Mass/Vol] 188.0 mg/dL Normal 66.0-200.0 [facility] Comment on above: Performed By: #### 1 731987606, 9736758, 4360774885, 9267361, 6916760, 9520994, 3107308, 4834251 #### [facility] (DEFAULT) [address] [place] [address] 94047 Cholesterol in HDL [Mass/Vol] 45 mg/dL Normal 40-71 [facility] Comment on above: Performed By: #### 1 618569769, 7130231, 0864050840, 0841680, 6098798, 8925051, 5537553, 1116549 #### [facility] (DEFAULT) [address] [place] [address] 96919 Triglyceride [Mass/Vol] 130.0 mg/dL Normal 0.0-150.0 [facility] Comment on above: Performed By: #### 1 447098680, 0649967, 4078322642, 3449162, 8556447, 5104662, 5530182, 4823446 #### [facility] (DEFAULT) [address] [place] [address] 66783 Cholesterol in LDL [Mass/Vol] 117 mg/dL High 1-100 [facility] Comment on above: Performed By: #### 1 527813996, 0977500, 0699087951, 2721090, 2115689, 8156050, 3753414, 2487176 #### [facility] (DEFAULT) [address] [place] [address] 54105 Cholesterol.total /Cholesterol in HDL [Mass ratio] 4.1 {ratio} Normal 0.0-4.5 [facility] Comment on above: Performed By: #### 1 724996566, 7948304, 1465182741, 2471082, 1015625, 7555170, 1642372, 8311476 #### [facility] (DEFAULT) [address] [place] [address] VLDL. 26 mg/dL Normal 5-40 [facility] Comment on above: Performed By: #### 1 [id number], 4647766, 9200335002, 5787520, 8588467, 8163162, 5586600, 0686328 #### [facility] (DEFAULT) [address] [place] [address] PSA Screenon 07-15-2023 PSA Screen 5.97 ng/mL High 0.00-4.00 [facility] Comment on above: Result Comment: [facility] (Chemiluminescence) Values obtained with different assay methods or kits cannot be used interchangeably. Results cannot be interpreted as absolute evidence of the presence or absence of malignant disease. Performed By: #### 1 053061095, 0220130, 9321969879, 4340073, 9573522, 0032657, 5048591, 4237556 #### [facility] (DEFAULT) [address] [place] [address] Phoson 07-15-2023 Phosphate [Mass/Vol] 3.2 mg/dL Normal 2.5-4.6 [facility] Comment on above: Performed By: #### 1 [id number], 8330586, 2183728485, 3795703, 5412394, 6808167, 1119745, 0381482 #### [facility] (DEFAULT) [address] [place] [address] 91805 Uric Acidon 07-15-2023 Urate [Mass/Vol] 6.0 mg/dL Normal 4.8-8.7 [facility] Comment on above: Performed By: #### 1 235656318, 9082080, 4764917906, 8593382, 5673249, 1410356, 5909789, 4509792 #### [facility] (DEFAULT) [address] [place] [address] 42029 Encounters Encounter Date Encounter Type Care Provider Facility Start: 09-03-2023 End: 09-08-2023 ambulatory [facility] Facility:[facility] Start: 09-02-2023 End: 09-03-2023 ambulatory Eli Santos Facility:[facility] Start: 08-16-2023 End: 08-16-2023 ambulatory MISSAEL TEJADA [facility] Start: 07-20-2023 End: 07-21-2023 ambulatory Dev Ch Facility:[facility] Start: 12-01-2022 ambulatory JAIR CARPENTER Facilit y:[facility]1 Start: 07-16-2022 ambulatory ROS CM Faci lity:[facility]1 Start: 01-28-2022 ambulatory ROS CM Faci lity:[facility] Start: 08-28-2017 End: 08-28-2017 Emergency department patient visit DEV CH [facility] Start: 03-02-2017 End: 03-03-2017 Ambulatory DEFAULT PHYSICIAN Facility:[facility] Payers Date Payer Category Payer Unknown [id number] 1965 Unknown [id number] 2.16.84 [id number] 1965 Unknown [id number] 2.16.84 [id number] 1965 Unknown [id number] 2.16.84 [id number] 1967 Unknown [id number] 2.16.8 [id number] 1967 Unknown [id number] 2.16.8 [id number] 1967 Unknown [id number] 2.16.8 [id number] 1959 Unknown [id number] Unknown Summary Purpose Family History No Family [...] section and content) DATE CREATED AUTHOR 03/15/2018 [facility] DATE CREATED AUTHOR AUTHOR'S ORGANIZ ATION 03/16/2018 [facility] DATE CREATED AUTHOR AUTHOR'S ORGANIZ ATION 11/28/2022 [facility] DATE CREATED AUTHOR AUTHOR'S ORGANIZ ATION 09/17/2023 [facility] DATE CREATED AUTHOR AUTHOR'S ORGANIZ ATION 09/21/2023 [facility] FOR RECORDS PERTAINING TO PATIENTS WHO [...] BE BASED ON THE PRIMARY CLINICAL RECORDS. [employer] provides no warranty or guarantee of the accuracy or completeness of information in this document.
[2024-01-13] MEDS: LACTATED RINGER'S SOLUTION 1,000 ML 50 ML IV (08:54)
[2024-01-13] MEDS: VANCOMYCIN HCL 1,500 MG in 0.9 % SODIUM CHLORIDE 500 ML 250 MG IV (09:07)
[2024-01-13] MEDS: LIDOCAINE HCL 1% 100 MG/10 ML MDV INJ (11:16)
[2024-01-13] MEDS: VANCOMYCIN HCL 1,000 MG VIAL 1000 MG TOPICAL (11:35)
[2024-01-13] MEDS: GENTAMICIN SULFATE 1 GM POWDER TOPICAL (11:35)
--- NOTE | 2024-01-13 11:46 | P.ORON_ITS ---
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 his recovery has been complicated with wound, infection and fluid collection. at follow-up appointment this week his incision opened aat the proximal aspect with exposed tibialis anterior tendon. I related that we can continue to vac his wound but would take a long time to heal versus delayed primary closure. Patient wished to proceed with repeat surgical intervention. Intraoperative findings: No fluid collection, no necrotic tissue and no purulence was noted. There is no evidence of acute infection. preoperative wound measured 1.8 x 0.5 cm. Tibialis anterior tendon was exposed and the wound tract down to the total talus implant. Capsule was friable but bled appropriately. Range of motion of the ankle remained supple. Procedure in detail:Patient was identified in pre op and consent was reviewed. Correct side and site were identified and marked. Pre-op antibiotics were start ed. Patient was brought to OR suite and place on table in a supine position. General anesthesia was administered. Tourniquet applied. Operative extremity was prepped and draped in usual sterile fashion. Formal time-out was performed. the wound was excised in 3-1 ellipse then was extended proximally 3 cm and distally to the level of the talonavicular joint. Combination sharp and blunt dissection revealed that the wound tracted to the total talus implant. Versa jet was used to debride the skin edges as well as the capsule and tibialis anterior tendon until bleeding appropriately. Then the wound was irrigated with 3 L normal saline on pulse lavage. A clean rongeur was used to obtain a piece of the capsule which was sent to microbiology. 1 g of vancomycin powder and 1 g of gentamicin powder were placed into the surgical site. The incision/wound was then meticulously closed with skin suture. Adaptic was placed over the incision followed by black granular foam and an incisional wound VAC was applied accordingly. VAC settings were placed at 125 mmHg continuous and adequate suction was obtained. Multiple layers of cast padding were placed from the ball the foot to the popliteal fossa followed by multiple layers of Lex wrap's, additional layers of cast padding and a posterior plaster splint was applied while holding the foot and ankle in neutral position the cement was allowed to dry which was then held in place by an additional layer of Lex wraps. Patient tolerated the procedure and anesthesia well transferred to recovery room with vital signs stable and brisk capillary refill to all toes Postoperative plan: Discharge home under family's care Post op instructions provided verbally and written prescription(s) were placed in chart NWB operative foot/ankle x3 wks Follow-up in 1 week Anesthesia: General-LMA Surgeon: Kyler Caldera Lead Java Software Engineer: Kush Hatfield Estimated blood loss (mL): 25 Tourniquet time (min): 0 Pathology: other (ankle capsule to microbiology) Condition: stable Disposition: PACU
[2024-01-13] MEDS: BUPIVACAINE HCL 0.5% PF 50 MG/10 ML VIAL 20 ML INJ (11:53)
[2024-01-13] MEDS: BETAMETHASONE ACE/BETAMETHASONE SOD PHOS 30 MG/5 ML 6 MG INJ (12:14)
[2024-01-13 12:27] LABS: Glucometer 103 mg/dL (74-106)
[2024-01-13] MEDS: OXYCODONE HCL/ACETAMINOPHEN 5MG/325MG 1 TAB PO (12:36)
[2024-01-13] MEDS: HYDROMORPHONE HCL 0.5 MG/0.5 ML SYRINGE IV ×5 (12:37→13:09)
[2024-01-13] MEDS: KETOROLAC TROMETHAMINE 30 MG/ML VIAL IVP (13:10)
[2024-01-13] MEDS: MEPERIDINE HCL/PF 25 MG/ML VIAL IVP (13:47)
[2024-01-13] MEDS: PREGABALIN 75 MG CAPSULE PO (14:05)
== END 2024-01-13 14:48 | disposition home or self-care (01) ==
PROVIDERS: PCP Family Medicine; Visit Provider Podiatrist Foot & Ankle Surgery
PROC: (CPT 400; principal; 2024-01-13 09:30)
DX: T81.31XD Disruption of external operation (surgical) wound, not elsewhere classified, subsequent encounter (principal); Z96.661 Presence of right artificial ankle joint; M19.071 Primary osteoarthritis, right ankle and foot; I10 Essential (primary) hypertension; E78.00 Pure hypercholesterolemia, unspecified; Z87.442 Personal history of urinary calculi; M93.271 Osteochondritis dissecans, right ankle and joints of right foot
CPT/HCPCS: 13160; 36415; 82948; 87070; 87102; 87116; 87205; 87206; 99999; J0702; J1094; J1170; J2704; J3370

== ENCOUNTER 2024-02-11 08:16 | Outpatient (OUT) | payer OTHER, SELFPAY ==
--- NOTE | 2024-02-11 | XR_ITS ---
The [address] [address] Patient Name: GURVINDER CHAUDHRY MRN: [id number] date: 1965 Sex: M Assigned Patient Location: Current Patient Location: Accession/Order Number: [id number] Exam Date: 02/11/2024 09:05 Report Date: 02/11/2024 11:12 At the request of: ROS CM Procedure: XR ankle RT min 3V PROCEDURE: XR ankle RT min 3V HISTORY: RIGHT ANKLE PAIN COMPARISON: XR ankle right 12/08/2023 FINDINGS: BONES:Prosthetic replacement of the talus without evidence of hardware fracture. No bone fracture dislocation. Small calcaneal plantar spur. SOFT TISSUES:Mild soft tissue swelling, < previously seen. EFFUSION:None visible. OTHER: Negative. XR/XR ankle RT min 3V IMPRESSION: 1. Stable surgical changes without evidence of hardware failure or change in alignment. Electronically authenticated by: SHERI ALEXANDRA Date: 02/11/2024 11:12
--- OUTSIDE RECORDS SUMMARY | 2024-02-11 08:24 | XMS_ITS | CCD ---
Author Organization [facility] Care Team Providers Care Promotions Assistant Sales Marketing Name Role Phone DEV CH Unavailable Unavailable QUIN ROBISON Unavailable Unavailabl e PHYSICIAN, DEFAULT Unavailable Unavailable PHYSICIAN, DEFAULT Unavailable Unavailable DEV CH Unavailable Unavailable ROS CM Admitting Unavailable ELIZABETHANDER, ROS Smith Attending Unavailable ROS CM Consulting [...] Translations: [Keflex] Drug Allergy 09-20-2009 AOF [facility] Repository Problems Active Problems Problem Classification Problem [...] Coding Summaryon 09-16-2023 Coding Summary HTMLBase 64 RhgefcnoXJi8aNg+PGhlYWQ+ SH3GJNPmM95qcFTpwA5bV3DD TElOSywgQVBQTElOSyIgbmFt SJ0baHSrCNOm IC8+SV0aSWZwGalroUKdh2O9 mWT1M74nmd5gEEpggPW9TBZm OpCdewupp5nzrRu5YGyhZtjx OyBt EDByqO47HTR8pK29Ba14nDXt nTCzh0rwsXq2OwMcVHFtJCE0 rJdvRQxqy0FfDANnT51pvGWy c2U6 LYDyfAjgzSWeUdEezQC3bN8q JIxmmfpeb1fkaakbZpc5wk80 fJWmc9H5wNE7M8FtpkV7DOYn bGQg LpsozZFPdU9yydjfe4wkfgnn RpMwBDFdRJj9RGt1IBWxzZth FxLiVM24UAT8QNAtqqSdQ6Iq LWFs qUaiYoA0h0H8Sl7BZ5TNZxbb Q5BKIXSMCBqwrKV+YQ96iw75 W9KfOblhNzp0SJLhCBI6pSR9 aD0n SPPiPKawt6D7pMG0F9RfdkKh uk0mi0jeOAHpIKvkG28cvBSt k4O3MKYllID7FZOqkQnxRlOc aG93 Oyc+TYGetThxl2JmTeawo8nv c6vhsGs6CxbwXACzrdFbpYce QJL2l9ZiWg9hLPTnvKM9eCP1 aD0i CoNsDoW2FPifE050JlQbjWDw NaddB78pL8LnaCE+PHRyPjx0 YJWgpEcnDX8iF2EeITNkpqbu bGVm oXlkXI8iRRMmklgaOYPctL9i WOYhP0t3FbBsCxX8WVczW5Rw KQCcaivjHz25oP8wIgOwOmL3 MGlu C1QgdpL6EESfoOZvBNpgSJA6 A24fq8D4FBPaEFLiBUG8rZE1 jO1wnUvibosvpJTynVhykaOd dGlj WZfdECllO354AKObnDzqDwTd ZGluZyBEYXRlOiAgMTIvMjgv MjAyMzwvdGQ+HDFjAVB1iBxp PSAn iQKkDBxuCq2zhUcugOahCS7n RAQmkhhrDTRufS5iTRDcnCTp mJmuXC3fVNAulfuaw679DxKd MHB0 OWItrFQdH0VljS7eDgQmMAYc TABtR3XuhXZfAWhhO425BCqw CoA8UBKirlIaP1UoMXTwpGym OiB0 b4Z6Bm7Yg3RczaeuF0BnlIIg DcCgKffdXZf7N8SeGdnzhSZ+ DI32VVSjHD17QUg4PEI0uJeh PSdi KPFuH0FbcJ5uPoIzSLNrQTYl Oyc+PHRhYmxlIHdpZHRoPScx DFTuOkGsuKhlNN7fLc1dWQUv LWNv oPttzLMvFvBeo5hlYJLtIHmy RR3icDmlM5KdrSN3EBTia9c4 Fr35U78lR6QvxHN+PGNvbCB3 aWR0 pS3pTmJnSpF2OVblM005XpVa nCCnIspdm1srb4othKy4XeR8 YCJlxmGdpVgeOXM0i4GwVn87 Y29s IHdpZHRoPSIxNSUiIHZhbGln hk3cpW0vHq2+YLBmuIK4oDE4 rD9aDlJmJpJ1YWfjD163ThVu cCIv Qfokn9pmn0fycBl4DuOoMVQy siOpbHuqQSJ3e8DuWn70U9Hp vCjue4CeBbi0ry29aZRbr2E4 bGU9 D9BsMCCrdkcvvCQdtJteMO4d ORPbslehETKgmK1oOIDfN6c4 ObMqZuP6PEwkU4SrlqS7OKVk bGQg XNRpoQKVsA2srttpm8crozdm JnBeJHIpXHr4AHy7BETnyLpg IvHkPBE4RhP9VHN8oKWpqX7n bGln fhfzdD3nYyr+YTH2dJRjkOXL KM3nJffnbDZ+WXUcOUP8rRts BYguCSOadA0bGMOhT4b3HhZw LjA1 QSdwN5YalaL1GRBupVCqGZDt tTLVeJ6ildjda0uysgumRzPy WFRyYIo7FTv2QUAclGeoYdXx ZWZ0 LkT1BAA9oMQmhN2dyXpoqgmt sH2tGus+WffodKzlODS8HWn1 X2YyUin4WUQhmDcgQT6wwUZg ZGlu Tz1fgOznjWezVT2hXDCdyjpf q125ZeRmd4crYVVpvNBhYVte HDZ7Q73zd0R7EFVyVTEsZJU2 dGV4 jW7uaRqmjewmjVArfRpchpLk vTboNMpfSHniL218YOOhgDzf YrMtYEk2U2CzTmd9LEBkiHtf ZT0n bBKmTKykMz9jgFwosKomMT7g PIIpretxh711OyVcu9awJVYb wCBdXCkdMUO2A86nj0J3VDQc MDAw WOB5jJC8vT2xvSdyutttlTWg sEmsukDppKcaSPayIYpaT100 BMZluQqaGxTzfFa7X0RkFzn7 ZCBz uFnrJA5alKLjGTxiCg9uuFzc fQqxDM9lXKKhnulru514XtWr e7qlIFVgaHDoSCvlSHI5S89r b3I6 OKKzIDToPTF4kNH9dH0xvTro bjogbGVmdDsgdmVydGljYWwt AZfoJ838YDNjsBwaHeNnbHlo bnQg QSkdYPt3U7AaHtzwsGD+PC90 CCQhWZ38sEWmvZXix4lxoYv9 RrAzQHLaVCK7lHmkJHhbv9Fr ZXIt N24ztUMwt2E7LQHgjBkvcCHa JcZigWO3qN1vWTiiswcfa5pm wwdoQwbmp0pthz96gV57V37l IHdp CEJxREUaAGZrGYHrpPgjzk1q jS9oHb3+CQXiuMZ6yLR1rL7s PIGnRaW2BNmkN853EwYuiPNh Pjxj j4qca4ovwSr8GtU2GEWkjhBk tPobNXW3h8TaPa72G70bNBuc JBLcFYGvJTEtQNEidYmacj1b dG9w Ii8+FTJjzNQ4dVD9mI7dDeTk QxS0MTkeX118YyMcmCBfCpyf P88tM5EtzDI+DSLgJwp0NPDv dHls FA4gpFPsBQgcOc5pLPW4EfMa SyZxNDuqY5MzHMGxwueidiyy uDZ5BRAaRXXtfO63Di4woHuv MTBw gSTRaU7pkcqcy4rwmzcaVcVc PZGxFIn4VEj8MYNyzDuxYgFw BOD4HrS0SFB0wKMpjH6daRlj bjog uD8lD7YyVFAgzhhwDp08lW5u DvLkWuA3QTaeRdc+RFVSSVZB U1FvRDsQOfgrCNoRJK85N8Ch Pjx0 RRJymBkeTC9pwCFxSQxlDo5z oGmykGkiGK8zNGIylhvxICUy xO2rJZFlsZFjoUwhKJ9uVEEl bjtm l609FtHjWDO7MCKinIXpI7Vf tE3sFkTxDGLgSEBgY9GxlVJp REhtS920LQmtTtM8EKEccwTi Y2Fs XMVpeKtxOzG9i3T7Fw8wPE2n Lp3dCMK2BQ41HA68yFRnl4Y3 kQF9Q1JcDYNwldzvqggnxEU7 IDAu YONnoG84zVFjMWwyTz9qk6V1 x511TGVdQNOhtS04La0voIhv APTlzGXRaO2psgmoy7zbtpwg IzAw EDMxYOt8BUn7CIUchVulUlQc AGD3NwI9HDJ2xQCkeR3inTdb joerlC6pTfq+NTYgWWVhcnM8 L3Rk Xxj1LIBxrIfkAK8qsOKhJOxh Jf7iaEkyrCgdMF1eSAMionsp UIXpjG9rKRDzoLTctNnnDS3m NTBp dznvh923SlYxVLH8UAHncLQd Y5ZoaU5xGlZxLTWlWMBeB2Ho hUNaWTecS477QNwwJvO9EUYk cnRp D1AnLDWtvMlrAvT9a7C8Vb8R IHvMDW51NG75rERhq8K6mEB1 F0CjQHMpfrmbfhtksKQ1VARi MDUw lT98zUCaPPyqAd2fh1A4b161 MEPlCIOseH49Rv7hbOdjRGYc wCNLvW5djmcky6kgliupKlWy MDAw XEz0FNa0FIZgyYyxDsFiMUT7 IxN5RMT4tMLhpX4ekRbugrtw fJ8fHmo+Q3M2iOP4iQFkrDHb biBh IEJlZDwvdGQ+BU31ac43Y9Oy QovcOdf0BQPdEJG9hLH0vU8d AKBuATstq5O9cKN0Z7XpnmDv ci1j f7khBLOpDDhnX26gsZBou4C0 CFBhxEM1BOEedHzfPzRstP00 Oyc+NBMebNxfp1PrOovqm1tf d2lk bMl2NqFwTERcrxOuiUpoNIT3 t2SwWm61D11qILwyVYBpVVJf BMCuFJEzlApjsv6cvS6gUh0+ PGNv uLZ5oNM7kZ9fNbOkCrE4NYbr T979JhAhjBHoYjbuh5nur0ew zNz7ZuKnJXJnxmLczSmbVSK3 b3Ai Pw59Y0PrbMjyo9UkFuk7jm41 kIOsu5I4jNX5B9BnRMImowek bMBgqTzwEQ5wLDMnngscJZRb aW5n WMVuD9a2UaKfCkZ0AZrqA9Ja hlA5WNRyzLQgPGEgrNPOqM3b sngpr6tirqhzFeBrTJMvIEk4 ZXh0 CSMmlNkvXeJcQSE3NfC9UDY0 xTEgbH7oqKegsfslgI3mLtl+ WBq1x5wznYBsNY5qbHC3TP26 ZD48 wQEfu8R4lYO4Z6OyGZHyzndq eznihST6YCBfXZHxkN76Ja5j aTetOv5gNWWkPSQ2TNKzkNRe O2Nv jQ6tJoOxWYZrWPMpC2NiqJTc GQdcD375PKibIeP8HAKhxrXi B1NgICBhqYyiCcH8c7N5Ta1M SU46 FC77XW93aTUhh9C2rMC9C7Mp GDRivkdkzaprkTW7DGPwJKEq cS13Zk6hsUmzUm0bHGVzOFQ7 IFRp rVPpS7XotR8zZcOrASSaZODt W1LzoXFfVGsnR589SEhySkF3 HEZpowHoP6HxXZVoyVmjAvG3 b3A7 Pp0FFz83AR76OO54aYDjf8P3 uVV7N8LcJVFjefigszzepRO1 TONkBQKiaI98Ix7xbGcnTo7j ZCAx VSX2QTSxuMLgY7NwvS4hAsBw MUQhHBNgV4KkoALxTCzkY229 OUbmFdG6JVMhpqQaZ5UiQAIg aWdu QtU6a0V1Ls0ZKHxmrli5F5Py PjwvdHI+JV78GRQiKP51jPRw tZZyv8aclDu1KjDmOFNoAYP0 eWxl PSd (more content not included)... [facility] Coding Summaryon 09-15-2023 Coding Summary HTMLBase 64 ZtlajndmHPh5tAh+PGhlYWQ+ WA1DDBSpQ35fdXCjzH0qT9EY TElOSywgQVBQTElOSyIgbmFt CM6sxLKmYKUc IC8+WO5cMSTbVcpqaRFoe3M8 rMU5B80ibi9dDEonmES6TSIm YkNdrrwlc5pqyFi8RHpeUkgt OyBt SKEegQ00XBT2sR30Hc21tXUq uLLyw3reqEz3AiIqZMJrCQN5 eBaqVFnwe4MpLWSaQ64poDXa c2U6 HZFxnSpsnMSpYxKfuMR4vY4p ELasxnwvf2luusvaPks7xs99 jMSql4A3rYS5V9QepkC3LZKs bGQg KuccoYTNtW6gjwztp8zrgqpa XuUbFDLiQYu8QKv5HBEauOol EtMaJU16KXL1MPYjxvIfE5Ea LWFs aDuqUqK3p8E7Nc0ZU2QNSdwt O2EPSNLYIMdmjYM+MN85pn53 L4SgQxzoJhs4RGLtXRT4yGC7 aD0n LDWsPLmef1J3lCQ6F4QjmyOq bg8nf7ydFDPoBPwqS50tpVJx g2K4EEDndWH1AMZebRkpObFa aG93 Oyc+WIKwhSldf8LhYvmee1eo f1ethMl9HcqmZBHjjpHxgEix JQR9g1GzCm2pEOBdiYG4rVM8 aD0i YyVkPrF7CXuxE874KoOapSYv XaqzZ58mW4ZwwWQ+PHRyPjx0 HSTlyXheYP5rN0BiAMPcfjhk bGVm mGsmDV2lIYEgsdomYRSenW1t SYYzO7j2HnWzNpL2HTtyX5Ij GGRhxhsnUi15wL3dTeKmQxB8 MGlu Z8YsshT4STPvjKQbLMvpGGH4 K79cu2K7QNXlBKVcVZZ5gXT9 xX1xnYolzgtdkKFxcDnmwcFr dGlj CLjwUEfwW376MYLoaQgeJeXi ZGluZyBEYXRlOiAgMTIvMjcv MjAyMzwvdGQ+NYIiOWV4oTjc PSAn lFPpDJypDe8iqDusjJepST1t LPTtngooBDEvhH1oBGPmpXRf mEoiEL7sYOHsyekqj448AsDw MHB0 FCQvyLVjV8KrvN4xEoWiAVVm OIFgO1BaqIXaRQkzO227FWds WgO6FLBrkaNyA9ZiRIKquDwq OiB0 o7V7Aa1Op6OflzpqV5PtdGEb PsGgKcofZOy7L6FsDizufXK+ SP39PDNaLW26OGl3AGD1mGlx PSdi AMTvG5MqfW1aZkMoFHOeFSUk Oyc+PHRhYmxlIHdpZHRoPScx RRGnWqEwgFhuJN4iNs9vKTVw LWNv zCzfhEPhReOdk4suNHTdVZav LT9ouTqmK4DmtPP5SEAeu9g4 Yb34F51dA0SyqBG+PGNvbCB3 aWR0 fK9uXaHgCkP0QPtoE204AuRs wOQhAokhd6rza4dwaVt9FxA1 FEBqrzMceRixTNW8p7LvUo89 Y29s IHdpZHRoPSIxNSUiIHZhbGln dr2dsG9rWk0+JTNkuWZ0xEH8 tT3cBlTcLwN4BEokK870QeXd cCIv Qmgtv6xuo9zxrOw5PpBuQBHz yyMraTwmYVK3j3VqIg79N8Cj tUlvf1WbPix7ap80bZGjj9X9 bGU9 Q8RdZXVlreieuCYgvBxjRM8n HPPbxxfvAHKxwN5dUAIvS7z0 SjQiXkO0VHhzN4RjypM0MHSx bGQg MSEyxAJUrR0qeetcb8jlboik CuDqAOAvZKj6KRd3WSLupIig PrWhIGP4BeX4QQB8pTFsoR1v bGln eijkcS7uCnh+GEB4jNJzsHPR ZA5mWoosuTQ+JCNoBWT5fXlz MUxtLLCgqI6wFEJtX5v5XsAy LjA1 WAycY0YjoeU0XGKmoORxVPZd aDYVuK4phivng6kokocfBjXo MBGzIWe4KOf8QGXslJpnWbJc ZWZ0 ZvV9WSA8rOYbyU6qeCqdrqpl yS2eDxt+JyotgOtrMWW2MBp2 A7FxLku6NZTbaVoaRA2ypCUc ZGlu Kc0lnVgpcTuiVV5oRKRqthrr f097JbSto4xjNNStjWOsGNjr KAW7X93no8O8EIFoWJOaANV1 dGV4 xH7hkMyazoviyPJowYyfflKd iTchGBdlUOudW847RBMrkMsn VwXtMNw6G3AyMve6CBGbhZxt ZT0n kPDwSEptMb5sgKzymUbvHS6k HGGxquckb715YjHnj3wbKXUp hBYvTEbwSDZ6S79wh3S2VBNy MDAw YAE9aOG9qK7owSudzhcunYUw oNlkxdKixOwfMCloKYhfG488 OMCdqPjnWrPkzTf7G2PjIxx9 ZCBz sPeqQW0vqUAaQQuaJk0nwMgw wCgyUH8bJXClkoahd967BzSr j1rjWZYjaHLpNRziWKL0G10s b3I6 UFNiWQWjYNJ0cSD9uC0mqTip bjogbGVmdDsgdmVydGljYWwt VVqvE735YJMlhMhqXzZuaVok bnQg IGlnHJd7Z4DuNjibsQP+PC90 QNXiES95kFVysJUdp2xdfMk6 ZnByBIPtAWD9cAbyFHylm9Fe ZXIt U70xjQIuy9L7EQMngCkdfUAj IkRenFI9oD0yEZxqjrcwa7zy nbmcLfaag5tymz02rA99Z95b IHdp YBAcLLJpAUVuIPUpbOysja2o hM9yNp1+MXFhlHY5lCR8aY3z QXGdFbW4KTmpG655CiSenUKd Pjxj h9tfz5vjuDi3NfE6UVPxaiRx eGrgECX7t3PaEc40J24dKKgg DXZpELIlERTrGSZkwSywcl0f dG9w Ii8+VQLyzBG2uLU4wJ1vMbRm ReZ3TTitR290WuUqqRYbOuvv T09hF6NqzMC+LRNzPcy4BRSs dHls WZ2wcKEpDWmnJh2dTWZ8ZsEz SwQpHIhqT2GlKXSpenfdusfq kXZ7KTFkILRzvG09Ih5tyZwe MTBw oANTgQ9bbcclq6wehaknJdQb JVDoROw2VTa8MPAzqByxHpSq FSR2JlM1FIK3nFKirP5ejVcx bjog kI3sZ0LeCDPyfctkLk15pE7n KeOpSiM2ZPgsYnh+RFVSSVZB P2ZySEhHCbtjYSsWYB50D5Ez Pjx0 BMUapQkkBP9faWQzYKraYn5d lAntuPznZG2iWREdsnhxMMLc yH3zZYFqsUTucCnpID9cPEAo bjtm k724ZiFxOLC6DXMfaCEiV0Ye cN9tQoVeVJHvBGXcB7JzhBVt DLurI062CDenBtK7DPVhxnRh Y2Fs YZXcoCbzPgG2y4Y1Ca2aOX7j Ff9pAPB2EE07HJ06sJMpv3P6 zZJ9B5KcJPCtsnqktxhhnOG3 IDAu PYIvwT71iWLfIEyaZp5vd3G5 g945OJLwJXUbsG16Lq5ybSeb EWNvsXYDxK8uvhtuz0zzvqiv IzAw FHAcGGz2NLd7OSKejNprAtYy TJD9OyX9EXY6oUCvnM6xkLxf xazvzO6jNuu+NTYgWWVhcnM8 L3Rk Ywg7BBQmeHioZM6jfBJdDOgm Bg4lfAnwiHaaTS4gUALiuljd AEKxwK5hSENqcFEglNegFW1z NTBp gogod233BcBdKCO9IROkoYOv N9GatV8yPqMmQBKhSXDsG3Pi pVXvIVqaX189JVvgAoF2XFRq cnRp C4NbRRNufYbmNsD0s8E4Mb8R HWdHAN78VI89lQVwp3A8pMC0 C0PkMIYzlqsxvxlxaDN9FPPf MDUw tS41bMKqSNwhFu7ro3O6v341 BXMhTGWtnZ29Ud0qaCclQXQa bCJUcR8jwvmsj0rridohZbBv MDAw VOe7KSa4NLQfxUmrAhCpHTM7 LhC6OLI6nQHdtM3kiFdomxkq gP3aDww+Z6D9Q9RqMxasaZL+ PC90 ABAtEY06eERnuHNzx7hyfDr6 XpXiMGShEVQ5mJjcWSjkc0Eg ZLPyW27vfZHaq5J1PRKfsWpv cHNl EhXhiBL2bC3hJYtxcfnty1ql eloqCkjry6juoz13jF13Q12u IHdpZHRoPSIzMCUiIHZhbGln bj0i mU5qLm6+UVOlvIF6yHO7dT5z XtXgBvO1QKeoG489TnVflMLn Ytrvq4lak6gxjEu0XbYdVZAv dmFs lTvcFFQ6c7LuNw32A46jJRas LKXlDFEvBCIdQQBzrMvxij6u kO1nWa9+LY4ah9pxwk82nL25 dHI+ KAOuZAY8tOtoYVhbWEOwgF3p MCsxZcH5YIWdRvKhyX68oXQu YSoaEb6arAvnhDksVM7pIBUr bjtm b801RkPbc3wlLRFuhORlZOrn ABS5P22lh7V7NCCwHQIkKBN4 rTV0zA2tnCoxcisjiGXxnTpt dmVy qRggJGtfGHinK415IJCkpAkr OeQfvNQnM6lniaJRFW5iCsty dGQ+IYWwXAQ2fFaiYVotOMRm aW5n OOKmL6w1AvFfQvG5GZxuV1Hz cbP0LSVqjLTbVNBphYQMyK4y pvdsf3fsgzubKsNeJEGgGNb4 ZXh0 GYVivZqsWhTxFHK9AmM2EUE6 pTTnwX3efCidbpzabD4iXna+ RklOOjwvdGQ+NNToUOO6qFxh PSdw MKCkqT8nKNXmD1s6JoLzOyP1 ODwcZ2DgysC2CYJcaCXuSXYx lWPPlD0mevcqq7wxgjbzZsXj MDAw COo8FHo3XKJnnKfuFwLeHCN5 XjT2ZNO0uCHsxQ1wdRrvalhf kD3pMpe+TVJOOjwvdGQ+PHRk IHN0 qUquYIquVGCieE3kGKZyH5q2 PfNjUyR3UAtzJ1XdmkW6YWSb kNOsPRXycAYKrN9dctrlf1sr cjog MnZcJOWhKCy3VIt1MUDuzSvf SzCzBFZ3TgS1BEC0cAVrgR0h sAvmucsqqY4eUwg+MZA9JNJ8 PC90 UW12T4KjXotimTCzhGD+PHRh YmxlIHdpZHRoPScxMDAlJyBz aOcaFB4cVg4zVOZgTLLxoYpk cHNl OiB (more content not included)... [facility] Consent Formson 09-06-2023 Consent Forms [id number]#1.00OTG TIFF [facility] Stress Teston 09-06-2023 Stress Test [id number]#1.00OTG TIFF [facility] CV Stress ECGon 09-03-2023 CV [...] reported separately. Jaskaran Tejeda MD JOB #: [id number] ul Final Dictated by: Jaskaran Tejeda MD Dictated DT/TM: 09/03/23 10:07 Signed (Electronic Signature): Jaskaran Tejeda MD 09/21/23 8:26 am Technologist: ADE [facility] NM Myocardial Spect Multi Re [...] MD, V. 09/03/23 11:43 a Technologist: TARAN [facility] Provider [place]erson 09-03-2023 Provider Orders [id number]#1.00OT [facility] Provider [place] 09-02-2023 Provider Orders [id number]#1.00OTGT IFF [facility] Provider Orders [id number]#1.00OT GTIFF [facility] Consent Formson 08-24-2023 Consent Forms [id number]#1.00OTGT [facility] Surgical Pathology Reporton 08-16-2023 Surgical Pathology Report (NOTE) [id number] [facility] CONSULTING PATHOLOGISTS [facility] ANATOMIC PATHOLOGY [address] [place] [phone] SURGICAL PATHOLOGY CONSULTATION Patient Name: GURVINDER CHAUDHRY MR#: [id number] Specimen #[id number] Procedures/Addenda MOLECULAR PATHOLOGY REPORT Date Ordered: 09/16/2023 Status: Signed Out Date Complete: 09/16/2023 By: Obie Marie M.D. Date Reported: 09/16/2023 INTERPRETATION AT THE REQUEST OF DR. MISSAEL TEJADA, BLOCK D1 WAS SENT TO [facility] FOR DECIPHER PROSTATE BIOPSY [employer]OMIC [employer]PLOYMENT INSTRUCTIONAL [employer]OCIATE TESTING. THE RESULTS ARE FOLLOWS: GENOMIC RISK IS: LOW RISK OF METASTASIS WITH RT OR RP: 7 YEAR: 0.5% 12 YEAR: 1.1% RISK OF PROSTATE CANCER MORTALITY WITH RT OR RP: 17 YEAR: 1.2% RISK OF ADVERSE PATHOLOGY AT RP: 18.3% PLEASE SEE [facility]' COMPLETE REPORT ([id number]) FOR DETAILS. Case report, all slides and [...] second Pathologist who concurs with the diagnosis ([facility]). Riccardo Hutson Electronically Signed Out 08/19/2023 [...] negative for racemase. Controls are adequate. Normal [facility]on 07-15-2023 eGFR Non AA >60 Invalid Interpretation Code [facility] Comment on above: Performed By: #### 1 [id number], 5035572, [id number], 1409761, 3459384, 6267307, 6652631, 0569235 #### [facility] (DEFAULT) [address] [place] [address] eGFR AA >60 Invalid Interpretation Code [facility] Comment on above: Performed By: #### 1 [id number], 2406319, [id number], 0374934, 5160819, 9986323, 6603214, 7866719 #### [facility] (DEFAULT) [address] [place] [address] Albumin [Mass/Vol] 4.5 g/dL Normal 3.5-5.0 [facility] Comment on above: Performed By: #### 1 [id number], 1517076, 1304528833, 3025369, 8845410, 8222849, 4279487, 2807343 #### [facility] (DEFAULT) [address] [place] [address] Alk Phos 44 IU/L Normal 32-91 [facility] Comment on above: Performed By: #### 1 [id number], 4405923, 1478914332, 2546637, 0312816, 5016506, 1551143, 6868654 #### [facility] (DEFAULT) [address] [place] [address] ALT [Catalytic activity/Vol] 35.0 U/L Normal 17.0-63.0 [facility] Comment on above: Performed By: #### 1 [id number], 6464990, 5094781265, 8700076, 2315153, 6593586, 2598964, 7974973 #### [facility] (DEFAULT) [address] [place] [address] AST [Catalytic activity/Vol] 35 U/L Normal 15-41 [facility] Comment on above: Performed By: #### 1 [id number], 1032438, 9490936755, 0024220, 1372065, 9675353, 3718289, 3662286 #### [facility] (DEFAULT) [address] [place] [address] Bili Total 0.7 mg/dL Normal 0.3-1.2 [facility] Comment on above: Performed By: #### 1 [id number], 7330558, 6477990801, 5354424, 0499857, 5347269, 1934455, 0519314 #### [facility] (DEFAULT) [address] [place] [address] Calcium [Mass/Vol] 9.4 mg/dL Normal 8.9-10.3 [facility] Comment on above: Performed By: #### 1 [id number], 5088642, 1066903870, 4587923, 5608995, 0413224, 5397049, 7420451 #### [facility] (DEFAULT) [address] [place] [address]7440 Chloride [Moles/Vol] 102 mmol/L Normal 101-111 [facility] Comment on above: Performed By: #### 1 [id number], 3543898, 4110854502, 3128755, 4878380, 0385977, 4359332, 0110966 #### [facility] (DEFAULT) [address] [place] [address] 35283 CO2 [Moles/Vol] 30 mmol/L Normal 21-32 [facility] Comment on above: Performed By: #### 1 [id number], 6917283, 7616403846, 1821444, 3524470, 0962562, 3951790, 2029899 #### [facility] (DEFAULT) [address] [place] [address] 71462 Creatinine [Mass/Vol] 1.15 mg/dL Normal 0.90-1.30 [facility] Comment on above: Performed By: #### 1 [id number], 1172701, 4862127068, 5100662, 4250951, 2824429, 2938952, 0194448 #### [facility] (DEFAULT) [address] [place] [address] 47309 Glucose [Mass/Vol] 88.0 mg/dL Normal 74.0-118.0 [facility] Comment on above: Performed By: #### 1 [id number], 6466269, 8865550573, 2874760, 8690672, 2052793, 6876825, 3383607 #### [facility] (DEFAULT) [address] [place] [address] 91346 Potassium [Moles/Vol] 4.1 mmol/L Normal 3.6-5.1 [facility] Comment on above: Performed By: #### 1 [id number], 9238728, 1823766634, 1463274, 6166462, 1633143, 1285530, 6123698 #### [facility] (DEFAULT) [address] [place] [address] 25844 Protein [Mass/Vol] 7.1 g/dL Normal 6.5-8.1 [facility] Comment on above: Performed By: #### 1 130468468, 4708515, 2782064319, 0094930, 1231266, 2855567, 5168801, 1811994 #### [facility] (DEFAULT) [address] [place] [address] 80625 Sodium [Moles/Vol] 140.0 mmol/L Normal 136.0-144.0 [facility] Comment on above: Performed By: #### 1 801546071, 1083792, 7304288025, 7325981, 1717993, 0225004, 9674183, 3082360 #### [facility] (DEFAULT) [address] [place] [address] 33386 Urea nitrogen [Mass/Vol] 25 mg/dL Normal 8-26 [facility] Comment on above: Performed By: #### 1 666389344, 6199175, 5744197369, 2299502, 4447196, 2131791, 0416472, 3149617 #### [facility] (DEFAULT) [address] [place] [address] 12013 Albumin/Globulin [Mass ratio] 1.7 {ratio} Normal 1.4-2.6 [facility] Comment on above: Performed By: #### 1 [id number], 4610787, 5350644564, 1053299, 7459363, 1740931, 8855167, 5470557 #### [facility] (DEFAULT) [address] [place] [address] 07171 Anion gap [Moles/Vol] 12.1 mmol/L Normal 5.0-19.0 [facility] Comment on above: Performed By: #### 1 [id number], 3677367, 9045449415, 8161859, 7709402, 7567777, 6676635, 3255005 #### [facility] (DEFAULT) [address] [place] [address] 99990 Globulin (S) [Mass/Vol] 2.6 g/dL Normal 1.5-4.3 [facility] Comment on above: Performed By: #### 1 [id number], 6901859, 3287294017, 3892432, 7426170, 1512872, 9206150, 8074037 #### [facility] (DEFAULT) [address] [place] [address] 83334 Osmolality 283 mOsm/L Invalid Interpretation Code [facility] Comment on above: Performed By: #### 1 [id number], 4562107, 8075400028, 8723611, 1488089, 9003347, 1169380, 5037121 #### [facility] (DEFAULT) [address] [place] [address] 69099 Urea nitrogen/Creatini ne [Mass ratio] 21.7 mg/mg High 4.6-16.2 [facility] Comment on above: Performed By: #### 1 [id number], 8142696, 1501257020, 9233261, 8203149, 3885541, 4800516, 5979594 #### [facility] (DEFAULT) [address] [place] [address] 00548 GGTon 07-15-2023 Gamma glutamyl transferase [Catalytic activity/Vol] 22.0 U/L Normal 7.0-50.0 [facility] Comment on above: Performed By: #### 1 [id number], 4869486, 6895794190, 0417161, 3644958, 9530503, 8260972, 8848800 #### [facility] (DEFAULT) [address] [place] [address] 82960 Iron Levelon 07-15-2023 Iron [Mass/Vol] 114.0 ug/dL Normal 45.0-182.0 [facility] Comment on above: Performed By: #### 1 [id number], 9187968, 6282597316, 5263000, 2969677, 5647404, 8690932, 8744404 #### [facility] (DEFAULT) [address] [place] [address] 01433 LDHon 07-15-2023 LDH 257.0 IU/L High 98.0-192.0 [facility] Comment on above: Performed By: #### 1 [id number], 5972643, 8841085448, 6831496, 8771074, 1699730, 9797868, 3527424 #### [facility] (DEFAULT) [address] [place] [address] 98175 Lipid Panel Standardon 07-15 Cholesterol [Mass/Vol] 188.0 mg/dL Normal 66.0-200.0 [facility] Comment on above: Performed By: #### 1 [id number], 0957153, 2274719613, 0090234, 2296537, 6400433, 0527556, 6577918 #### [facility] (DEFAULT) [address] [place] [address] 57740 Cholesterol in HDL [Mass/Vol] 45 mg/dL Normal 40-71 [facility] Comment on above: Performed By: #### 1 375796751, 3887801, 1429811799, 3800832, 6757292, 0459573, 6742435, 4076991 #### [facility] (DEFAULT) [address] [place] [address] 29986 Triglyceride [Mass/Vol] 130.0 mg/dL Normal 0.0-150.0 [facility] Comment on above: Performed By: #### 1 [id number], 4746220, 9279355207, 7399374, 8555189, 0538840, 7879561, 0460891 #### [facility] (DEFAULT) [address] [place] [address] 81448 Cholesterol in LDL [Mass/Vol] 117 mg/dL High 1-100 [facility] Comment on above: Performed By: #### 1 [id number], 1147380, 5029907731, 3633406, 5104635, 5652455, 1628910, 5235351 #### [facility] (DEFAULT) [address] [place] [address] 75339 Cholesterol.total /Cholesterol in HDL [Mass ratio] 4.1 {ratio} Normal 0.0-4.5 [facility] Comment on above: Performed By: #### 1 911447388, 6814934, 9044891072, 0786745, 9233595, 1076626, 3077963, 3743105 #### [facility] (DEFAULT) [address] [place] [address] VLDL. 26 mg/dL Normal 5-40 [facility] Comment on above: Performed By: #### 1 [id number], 2471761, 3209706912, 2414569, 3692258, 4459943, 6992074, 9393022 #### [facility] (DEFAULT) [address] [place] [address] PSA Screenon 07-15-2023 PSA Screen 5.97 ng/mL High 0.00-4.00 [facility] Comment on above: Result Comment: [employer] System (Chemiluminescence) Values obtained with different assay methods or kits cannot be used interchangeably. Results cannot be interpreted as absolute evidence of the presence or absence of malignant disease. Performed By: #### 1 [id number], 7006059, 5588074142, 8700118, 4215332, 7181536, 9726119, 8187225 #### [facility] (DEFAULT) [address] [place] [address] 94971 Phoson 07-15-2023 Phosphate [Mass/Vol] 3.2 mg/dL Normal 2.5-4.6 [facility] Comment on above: Performed By: #### 1 059385412, 5862930, 4020771646, 8604260, 9997399, 1055399, 5313925, 3038588 #### [facility] (DEFAULT) [address] [place] [address] 17493 Uric Acidon 07-15-2023 Urate [Mass/Vol] 6.0 mg/dL Normal 4.8-8.7 [facility] Comment on above: Performed By: #### 1 801583524, 3340926, 9480163067, 1781262, 7395098, 4388121, 4312655, 6529305 #### [facility] (DEFAULT) [address] [place] [address] 64947 Encounters Encounter Date Encounter Type Care Provider Facility Start: 09-03-2023 End: 09-08-2023 ambulatory [facility] Start: 09-02-2023 End: 09-03-2023 ambulatory Eli Santos Facility:[facility] Start: 08-16-2023 End: 08-16-2023 ambulatory MISSAEL TEJADA [facility] Start: 07-20-2023 End: 07-21-2023 ambulatory [place] Erin Ch Facility:[facility] Start: 12-01-2022 ambulatory JAIR CARPENTER Facilit y:H1 Start: 07-16-2022 ambulatory ROS CM Faci lity:H1 Start: 01-28-2022 ambulatory ROS CM Faci lity:H1 Start: 08-28-2017 End: 08-28-2017 Emergency department patient visit [facility] Erin [facility] Start: 03-02-2017 End: 03-03-2017 Ambulatory DEFAULT PHYSICIAN Facility:[facility] Payers Date Payer Category Payer Unknown [id number] 1965 Unknown [id number] 2.16.84 [id number] 1965 Unknown [id number] 2.16.84 [id number] 1965 Unknown [id number] 2.16.84 [id number] 1967 Unknown [id number] 2.16.8 [id number] 1967 Unknown [id number] 2.16.8 [id number] 1967 Unknown [id number] 2.16.8 [id number] 1959 Unknown [id number] Unknown Summary Purpose Family History No Family [...] content) DATE CREATED AUTHOR 03/15/2018 [facility] DATE CREATED AUTHOR AUTHOR'S ORGANIZ ATION 03/16/2018 [facility] DATE CREATED AUTHOR AUTHOR'S ORGANIZ ATION 11/28/2022 [facility] DATE CREATED AUTHOR AUTHOR'S ORGANIZ ATION 09/17/2023 [facility] DATE CREATED AUTHOR AUTHOR'S ORGANIZ ATION 09/21/2023 [facility] FOR RECORDS PERTAINING TO PATIENTS WHO ARE [...] BE BASED ON THE PRIMARY CLINICAL RECORDS. [employer] [facility]. provides no warranty or guarantee of the accuracy or completeness of information in this document.
== END 2024-02-11 08:17 | disposition home or self-care (01) ==
LOC: EC 08:16
PROVIDERS: PCP Family Medicine; Visit Provider Podiatrist Foot & Ankle Surgery
DX: M25.571 Pain in right ankle and joints of right foot (principal); Z98.890 Other specified postprocedural states
CPT/HCPCS: 73610

== ENCOUNTER 2024-02-23 16:37 | Outpatient (OUT) | payer OTHER, SELFPAY ==
--- OUTSIDE RECORDS SUMMARY | 2024-02-23 16:49 | XMS_ITS | CCD ---
Author Organization [facility] Care Team Providers Care Lead Carpenter Name Role Phone DEV CH Unavailable Unavailable QUIN ROBISON Unavailable Unavailabl e PHYSICIAN, DEFAULT Unavailable Unavailable PHYSICIAN, DEFAULT Unavailable Unavailable DEV CH Unavailable Unavailable ROS CM Admitting Unavailable TOI, ROS Smith Attending Unavailable ROS CM Consulting [...] Translations: [Keflex] Drug Allergy 09-20-2009 AOF [facility] Repository Problems Active Problems Problem Classification [...] Coding Summaryon 09-16-2023 Coding Summary HTMLBase 64 IiinirdwYXa0fWj+PGhlYWQ+ UN2XTUIxX62plKFtuI5oF4OH TElOSywgQVBQTElOSyIgbmFt WM9fcYMmQPTf IC8+NQ3mAOBmSzbvmJNqi1X5 dFR1V26jdk6rRLpakUF7SFLd XnUthkpxr5dvmKp4LVtfEpcv OyBt LCLkjM16EKU1jK02Bp46nIEp kLUnh5spiKc6TdVeGJFxUGZ7 uAtgNOwuf9PoPHMjG31rwEGb c2U6 UCAdsWmuxGKxMyZlsGS3hC3f IQghheebd3cpxladSwv1vv64 cXOuj4C9aYU7L2OanrK4IVUt bGQg NxwilTIUcC6kjyjkh5orjpnt AdOfINGdHOd6VGn7OKBvyLjf RpIqZY54XDV7MHUbbzPnF9Hz LWFs gBfpPlN1v9L6Tu8BB7NQWzud Q4INGWRSHQmdmND+OC17be28 X9VgTjzlBdk9RAWyFAF8kLG9 aD0n WUSrNLboa2Y8lVW4A4DnnxHt vp2bw4pjUSIvWPljW75ocWFl l9Y4BMFnlXF4CXVugMumSkIl aG93 Oyc+LJIvxZnlp7BwBspte3az p6olnEp1EkcjATMxcgDcuGgi PNQ6n7HaHj6hDWGnlMK2dBC9 aD0i XfYnNcZ3LLhfQ219OhQmnPTw DtbyS26tF5EhiCH+PHRyPjx0 SVGgnPldGW5xF1BmKLScxnbo bGVm dLujEC8oYNBnavntSEWfiX3v IWIsW0s5BsMnPqF0XYqwC6Dt OQZltqiwZy97sP5bGdCtLrH3 MGlu G5VnqwL6VPWqqFDgMYirKIF8 T42bs2J9QNUbYTUyBVL1uLP6 dV5aoQfoeuhziWJcqXwxcxNc dGlj AUfwTSssI142SHWhwJzsAlSg ZGluZyBEYXRlOiAgMTIvMjgv MjAyMzwvdGQ+UWSkUEJ0iXdf PSAn rUFyTZvqPy8kxHphwOcjQZ4p NLFgrxpsXTHvlR0jAZEzmNUe vGwvDK0wIYRmyikwb295FkHx MHB0 OOUorFFzM9QafF4cDfVpGVJo SWTdZ9BxfRJgLCwwH193TMdz ZjJ3QQYmfiRxZ7LjKNXinIwb OiB0 k6Z1Rv2Cm3JummixD7CxuJNp MlJaUdemTFf1C0NuNlbjqUY+ WR89NXTrDL74HIz0LJN6eZgy PSdi IIBnU5JqgU0hBaQeZNPnRACi Oyc+PHRhYmxlIHdpZHRoPScx RFQvSeBswLcnJS2vEi7lQQRf LWNv aAoljXRxKqSfk2jaCEBeMPtu AL6nsVgfE5ImeGT6CKMio0f9 Fn99G25mL4FbmOI+PGNvbCB3 aWR0 yA7oXzPyBmK5NLjkL602LqNv vRZuQbxqy9uti9cowLe4YeM8 RVDqijInxMfeZBO1x6TkCy04 Y29s IHdpZHRoPSIxNSUiIHZhbGln pb1vaY5tCf5+QGFwfZQ4zDJ4 xM2iDiEjWxM7XKbbM410ZcSg cCIv Fxoqs3zus0ocdJa2KvRwLTPm qxFfaSnxHWG2l1QiGp86A8Ji kUcoz7HxZoh3it81uJTqw9S3 bGU9 Z2OaSULyttekkYQktHhtQH5r WIGutcnsRWEcwD7aFERzX8f9 LcZvQdZ8WBpsZ9XogpW3TGIi bGQg PWNdsFCJjA9yrterq7baixdt BaCmRMZeZPi7NHc1GEZskWkg WbUjSFH1XwI8QVK9wXDqdW1p bGln gmoomC0nHta+BOJ0nTWpeDMO GQ6hKmabaDY+LBAuLAC9qWww CVjrXLPbqJ2tRUMiI1g6UsQc LjA1 ITxjP6RjtvA9ZEEcuOJnXSIu fSSVnQ0slsmzu3gxvyolMsLv YPNtTPp0KJg5SSOykEvkKyQa ZWZ0 RpN8CYR8iKQgvV5uoFkdtkfd wT0qGjh+KvjxqFiiDZN1JDb3 P8StXag8PXDflEziRB3kmYUc ZGlu Tw0igEqyoGscNZ5tBDBbsezd z066ItHzb9waEGSrxOBxTVxy CSE5H04oo5R2GZQyIEQwXQN4 dGV4 kN5xlXzzaqkbaWHkbZudnlWs xOotQMqwMHifM135DKHtnKqr HeZyITp2V2WdFum1TVDrnSsu ZT0n dRJuHVxyBw3lmUfnzGpmEO2l BQSrtmpgt965ToIbf8dlZGSt bHKhNWeqPYU0P68nh5L9OSOg MDAw KBT4cWD8sU4zbGtnkfejyWVf zMgicjWwoNxxQAejLOpnL732 XCVoaFisMnTgxTh8K7EoCir6 ZCBz zIylYS3wtUNaVGiuXr9iaWsq wMfwZF4zGEFjikncr715WbOm l6gjKGHxpKRaPJkjMRT6T72b b3I6 TSOrIVHoAEI8vWT0lI7xbPwx bjogbGVmdDsgdmVydGljYWwt WOnjU863URMugJefWuWgmLtq bnQg NOfmYKq5R0CxPjyjcPF+PC90 MGYtTQ35sOQmiSRxf4qupWw4 PwNcTXNtKQP5kUrnHIvck1Vi ZXIt U60vfHEwh8R0TMXjnKqdqOOl KoRmvAO6jX8cOOsqpauus5vj vgjuCrzrq9yszm62mY73R01t IHdp UGEvSCNdDMAbRVPytYeave0m vB6yRc4+OBKowSD9cSH5fN9q ZWJjEtN1DHbrD925DwXxsINt Pjxj z5hqs4akeQa4HrW0HFZozvYm zUheNSB5a8HgTh85Y64tIRax XCAeWSWvSCYuEGUzwWxsrp2i dG9w Ii8+XVBtsFL5uIY8iA5bKaVj JpJ9VQpbB867XmKenGIpIntz Q00vM2KscLN+XCJeGvm4ZJMn dHls PY8rsSQoEDqbJa9rTGQ5KnOj FsClIXscV0RhPAPmvcazskwu dXQ3BDKxKHZqyE25Ok4qzOsa MTBw kXJAoF2cgylza8ddkzbcQgBo KYAoBMu6JXh6UJNmrUkeTgSw ZEL5HlG1BSW7xVFgtA3piPcm bjog fV2dR2EsXWAiqrfeQf34cB6g TaHsWtL5IXjqLxb+RFVSSVZB G7RdIIwRAjasMWlTID95R6Ek Pjx0 TGAhfUjiHE4raNZxIMseSq7u eAouxKrdLZ3lIJYdyumpJUVw aX9mBWOgwQUkoTuzXU2kZOSu bjtm q719DpVnWSP9KOJjkXYzC2Af yX9yVbZgOTAzJVMvJ3SksBSq FElkN412GAlfPzJ6ROYontCj Y2Fs VDNvdDjaXeY2v8U0El7tLA2n Xz7vKHD9ME55EW59vBTwv2I8 lDH1G0VoPLHlczvnbfofwST8 IDAu XYEedN36yOKyYGrnPg5ex8W4 l987LKBuAZEbsA33Ol2uiFix PMObvHPJtT5xymioz3uzvwuf IzAw PKZnAIv3GEl5XUVbsBnkJiYm ZVO4YoX9MEV5bGXzgP3kiJjw otmjzK3yVnv+NTYgWWVhcnM8 L3Rk Qav2TNKawWsaXH1juCDyXOpd Ou6geHazkDapTN1lFBCexdkg ZKGjvB5rALRgiCOxiWcqEB8k NTBp wuwnn658PvQiFNJ4EJImvIWu R7KjjY8aRaJrIIGdKWUkR9Ao jNQaISdhK896WNqaIsC9HOQy cnRp R8MvFDElhOjaRaJ4w0G0Ay6P PJwJGV88SZ05hVBht6E3kGU3 B7FgHDZseqlbbvhybPP5ZOAi MDUw hM95qXTmUDevRc8nz7W1s316 QWMyQYOwhA50Hb4wnTlsIKHu oPXNsV0hmmbcf8jpglqiRwLb MDAw IVn0GMw8RLMulDeyZgMyTHT9 ZxC9TQQ8iNHeiZ9qfGtlxnar xQ5pCyr+F0J5hXY5uGTpeZOc biBh IEJlZDwvdGQ+RZ09fl29I8Mt PruvPhf9FSWjMHL4wWT5kU2f YURuFDfic9Y4rLY5U9SnulIp ci1j h8ukCDCnHFoiY24lzTFhi2U7 ENWogTO0ZNRpkRcyIeTeiR28 Oyc+AYFrhBafk2GnRnpzb3kw d2lk kHw1TwDxIJBlncDzrWrxPSP7 k2DpQj56Z15yKGxpDDRpNHLp PDVmCFBbsZyqlr7chT2vBp0+ PGNv qHN2aBE3cQ2gTkTwTvR3JFqx S025IiVuzKUlZupuk1uil3lu eGo4OjQdJFOsqoRrbIszSIM3 b3Ai Wu73U4GhbWetn0HlEmv0jn56 bDOef8F9hIA8E0ChOQZidwsj lAYfoCnwER8xQEZhycjySJIe aW5n SMBvK5w8YyFxEjT4VJgvH4Dh nfO1OZBgmTIvSKZazDUUrF2z ijbdx3bznhlzEyAdIBTwHHc8 ZXh0 OUCrsJddOyCgQBJ2IpT5RZT9 sVJxpZ5lbMxogqapjE4mMmm+ RGv2z2ahsRKgCF4kzSI3WH82 ZD48 pDLec6A7dKC1R5CnCPRbilok zyuwrIE1PRQuSYEagB94Vn1t uOerIo7ePSCqRLM0VSRojFYk O2Nv wZ8jKlRoUWBiCKUjI9OloURa SEdwO056JCzvJrF7WPUijiUc I2OqMVPrpXnuKjK8g3J4Kb5F SU46 HB32SP08xDBjh5L1iOX9E3Xm SKPdvnzwbsdweIV4OJVlXCAv xG01Gb7muFtbYg9lFHGcLWS7 IFRp vWVcU6VzfY8xVcBqROZeJVUi S2ZxmKGgBXrhZ990QVodXeO5 AGAoqyMgR4LhKFJjhZyqQvK6 b3A7 Tp0RQi14KZ11EE12cJCsq5U6 xLN5D3ZyDIEklidmgjkseVE5 OSBcFMQwqO46Rn2prYhmCp5d ZCAx SXF9KIEtkHViL5OeoA2aHiIz VVVeFKPrO0CqzTOdACvvM735 FNyaQeF1QIBtkuWwZ6YrQDSv aWdu DbJ6b3Q4Iq2PZQqowcp9N7Cy PjwvdHI+WA56MFJtIF75mJEq wLSui1pzeBv7QzFsGLFfCLS5 eWxl PSd (more content not included)... [facility] Coding Summaryon 09-15-2023 Coding Summary HTMLBase 64 BsigdfjjVQw4mWe+PGhlYWQ+ JT9XPPBiV06nnBQxqM5tM2AD TElOSywgQVBQTElOSyIgbmFt NY8ylUMmOAVa IC8+AS8jRDQsCrlqrPVgr9G9 fUC2B06bkj1jWQrcvJT6CONv YzUxsxyzr7jqaAc2KZcyUsjz OyBt AGPccA40VGG8cK49Jt20rDNu kRNcd9ptuFb6QpZgOFAvTXW9 tLjvLGdvs4TqDXShP47yvYZj c2U6 FUMspJpdjLOvXnBuoQY1oR1d MFotbjtro0hugyjbOhe4pn98 xIXuw7A4iHX1N2KbbbL0OXAy bGQg PcjtmXQWgE4gckwxc4dxtadv EvUfRCNnJSr9IHh9GTPcgThk DhSdCQ77CKB2IIGsdzFuU4Gj LWFs vMakAfT9a9L1Mm1HA6FEMpny L5IITEWFNIdeuET+OJ43xz71 R6MbDhdiJhr8IKFfWDU1dIV6 aD0n YYJuGBrgk1X0dGP5N9VuouXb yz7uc1wiUUDcDNysZ08zlXFe z4R6XOEphYG4ATHzsVvgJvXy aG93 Oyc+OGPsgTeqs6HuCorrk2qp b8xdhWd6WfpkGJPyzlOsjGvg KCL9t3AdVz8oGHMyfFB6nHV9 aD0i ShYdHmK1IItcL214YrYjbCSh AudoF84nN8NlzSQ+PHRyPjx0 SZCosGuhWP2mF1CwXGOsocgg bGVm cZpbGB8kVMJcerteWNOclW3r MAOhT7p3LuCcLrD1KKbaW8Lp NCIdmzlhZw79nX8lJbYdYoU4 MGlu E2MvgkI1YFYdzPAvSKdmBKM5 G85ci1E9DVIcIWIkNUQ7lUZ7 oU0vbSxggdibuNUhdBnqbkZu dGlj XOyfWGisO639YBYsjLovLtRo ZGluZyBEYXRlOiAgMTIvMjcv MjAyMzwvdGQ+RWTvGNC2zStl PSAn pSQkILjaMn5srCfszCbeYB1i TROsyrkyFYGwgT2jAOMerOKn tXpoSE8dYGNyzjknn775JqMz MHB0 WQTxsHXoE8CpcI0wKxWyYLSx SSLcU2VvaVXrHHlgX974NAmt ZlQ8SKXawnQbF7LvVYJouBup OiB0 d8J7Lk3Bk3IwzwwkM6NpxVId SwAaAhdbENl8S9ToFdldtWD+ SU31EMVdXE80MBr3HZE0jAxf PSdi AAPyV0BxcP3xAsQkINZaCRQi Oyc+PHRhYmxlIHdpZHRoPScx NWIvWfGhkJkoJF4yMi7pSFJa LWNv yYrfvLVgOdDuf5ygFIQhAWry UB4woThoA1TecCU8KUEze1b0 Ow25I18fV7YnsFV+PGNvbCB3 aWR0 sV3oAwMrMyW4FWquY275DnMl qTEdPghbf9cwl8ggyXs8VhX2 NQUgfzRhoUxhKBT7z9VdMp08 Y29s IHdpZHRoPSIxNSUiIHZhbGln zl8vmS5fIs7+FNEotKK0xXW3 pU1lAuPnWuD4IPvpI817LwAv cCIv Lcicv2chs8tqmAu6RtQeOJHo fsXzkKjpQAR6u7LyVa57E8Qe wGtyb4VyYzz5el61qXGjj2N1 bGU9 O1QkWUHuymuevXSpnKkeAK5h WXJyunuyBCYqgS8bBFTmA2e6 SaKqVcS6FUqiN2NeurI4KZDo bGQg MJWwtIBIcJ8iagprq5tgtiut DsWzMDSjZEj8KDs3JGRcaBsp CzJiVWW2FuX5XYK7iWPepT5r bGln zyasjM0vQhd+AYF8hLWagTFF RE6rOrvdrWB+UGOuGZK6yLog BAkkSJPsyQ2uKIQyV7l8QyUb LjA1 HWxaN5BrjuL9AUCniRXxLIHz uVDHjW4kdtfrr3cstdhjCxRv DVMrOPt3YLy3MNGduEgkMyTx ZWZ0 DgU5UTW0qGItaC0glXrnrung fN6rSiz+CpaliLicVKZ5OWf1 U7YoKud1ZKSrnWgbUX9iuICp ZGlu Pw0xrMyaaEveLX1gBBWwstex f181DnUvg3hcKPXnzYEdAOxv QEP4G57nj0J0MYSfPSZwJJS9 dGV4 qB8knNckswhtuYJcgOzgmuDv gEkaYYmpOOcnL208CAChqRap OlWzXTj0O7AgJoj7PNVviIxn ZT0n hMKiQNzwYe1plHueeEvhMP9f ERQsomaym813BqUqk9ldKAMh nWMmSUxbUKZ2J19rt0T6MBLt MDAw MGP9yZK9xR0vlTkwyimrdBBh nGqjvrHhfEycBHycJMztG656 SXCavLbxWpGtpUo7X7PeIya7 ZCBz oNueMI1anQWfFDysAh5ucYkn uWntWA6xCQQqihbss275RqGa c7yrSIQvqAWeAIcmSBO1T00d b3I6 UENqSEOoLCI0uIH5yF4niIen bjogbGVmdDsgdmVydGljYWwt SDxfO183KFPxlJheWbQrdWti bnQg XUckNAt8F3RcTxjbxRG+PC90 JOKoVT94dHLniJXtz1ohqYd0 CvPzRYYqSMB1gQiqYTloo5Gu ZXIt W70rrUApz6W9WIPuyUobrOBu RaMqxXD3yK4jMDjrgddpb5zx bvrhAcnru0ngex15mO36S72q IHdp FXVhJGRgFOStVYWadHpkny7p uU0yYg9+DSLqvZW9jER8gW0u KRUaMvU1KGocG771AsJybDPk Pjxj x1oqe4cnpOy5LbH0CSKjpxJk yRhvPDZ1b7CqKv02R76dUOmg DJEmVTNzFROdLLZqsZdhoo0r dG9w Ii8+TPJqdAE3kTQ0kU9zPtUv GzH0LPdtL988ZbKcxMLzMzdy A23jQ4FxcEE+LAUjFqr0XSQz dHls FQ8fxXIxIPxeNh6oKEF9IdCn UtHaTSqwP3IeOSKkawwmynbx tNJ5AEHiOIXulR69Ys3tzFnf MTBw oXYJgJ0ibtygo9tvojqwUzTh YQVgONp2FRo3QOEmdJopKjLw LXB0WvM0YHR1yKNatV7krDco bjog iE5rG4ErZLHwpcvsJa47aJ1u RfCeXsQ2VXniVzo+RFVSSVZB B6VrSQhWLdxbNPyCLR56M1Zp Pjx0 GPFzoJcdGF0diFBpIWowJv9o mCixsShoMC9fIOGouuvxZZOb kP1rXWQtgBVfjYpsRC8gWRVn bjtm v751NxQlHPA2ZKSjjZBpN6Fq zV2rYhPxLTHqMJXqD2XjyVIm HCucL888NNfzEmY3CSGjegIg Y2Fs PVMmdRroIxD7p4Y7Kx2sIG3i Pm0qHUS6AB20SV43nFCbm6K3 rNC4U3GwIYObbinpjeljkXW2 IDAu ILDpsX24jXArYPeeQq9tt2B4 y406GJRxUUCtvI01Gc2rgEtk QWWonAZRlD9npedal2paxdif IzAw QTOeKQg6PFt0ZROmcIfxHyRn KIY9UaK4UMZ2zIIvxB5nbMre tfeebO9lLyr+NTYgWWVhcnM8 L3Rk Nxa0EQUqkDtgJX0dcJFdALws Ds2vtPphkVpnLF7lVNMwqotz OTNdxS4bUGPchERmmPykGC6o NTBp qpudt345HtKoNNP4RCUpjAPa R8DpzM6eAfRzJSHtLNHpS5Eq hKTdQYljM841YNirPmY0AJRa cnRp M9JkJXVwxTbqNjB5b1V0To5X QEnBAP00BW83hQVrj8G7rHQ2 R9DsDQMokobaggatfZH1FSSz MDUw xO50yPNyTQgvZu1pb8V5w846 AVUvBQQjxG24Rd2bkKicGCSh xGEHmN4fbzjmf3knjadpZkXa MDAw EHr3UQw3AKZeqBfwCuJxCZP2 PeU3EYF9jADhlU8utVdxmpuf vT2gPwg+N7Z3R0JoIhcixDB+ PC90 EJHvAB04jXUxvKWyt8jnvBo5 EbFjDVCtKGH7gQosXNkqx3Dh QUIcG73rnUJnz9G6NTWnsHse cHNl QlGfvNC5dX0uCNdsrhbrz1pe qlilEocwj3weyp13cJ42C87x IHdpZHRoPSIzMCUiIHZhbGln bj0i kA2oPn1+FGQkpXI4lYW8nQ3u GtKeFjX2UCvbN285PtSmwSVu Grxug1vnt2bkjKj7DjHtIWOl dmFs zCzzXEL6n4MtVr68X22yYOwy EUAgOJGpKBHoUXGzqNflun2s dX9hAg1+KE3dn0mcxn60yV24 dHI+ QWQcRDB3yKcoMNjrFAGwjU3i SLodZtR5HWVrPqXtxA92yCJo XFqfBt9evElybKbfBJ3bNMCo bjtm g976SnJrb7ghPEDwwDJpZFgv MDA8B26al2G6TZBnILVlGGY7 lVH1jV3zfNfwaejwsDOmuIwb dmVy xSusYMuzKEsbY456DYSeqRkh NbDbjBZtH5ofzoYHUT5sRexh dGQ+OYAzMHT0pQquIVrjYWWz aW5n NWPcP0t1SbVtXaJ1PAoqL2Vj buT8ETKqsQBlQLMrjEQNeV4w mbgpw8gconqgRvBtEPUtQTu4 ZXh0 UEPmcFdeAzXrMCN5JkD5CNR1 gCSbdU2pyAvogzmxuO2tEps+ RklOOjwvdGQ+EQBaWQD6bWtv PSdw NXIcpO2bSYWrP7a5TsEyZgQ1 WDmkX7SubnQ5WFEucNBrVKGw yLDBmM2aixjhf1mmfymdQqQo MDAw RDo1RSw6LXUbgOfhTcInWNS2 GuH1MXE8dSQijR4cxKeulobp mY1kGrf+TVJOOjwvdGQ+PHRk IHN0 dKhuITkvCAKxpB9dWEUkI3f7 IbIdUeK3QSepG5ExifB6DLLq pBAtRRIfvCXZgX6xwequc6cp cjog MhTfYYMyHXe1NJo6SBEurBwi LjGgEGD8NwE9BFG0vPAevA7y nVdmuzigmF3hDeq+SOX9OCR7 PC90 PX96V1XwKehgtTSjpJD+PHRh YmxlIHdpZHRoPScxMDAlJyBz aVbzCS1jGi1mOOQaMDAapMgf cHNl OiB (more content not included)... [facility] Consent Formson 09-06-2023 Consent Forms [id number]..[id number]#1.00OTG TIFF [facility] Stress Teston 09-06-2023 Stress Test [id number]#1.00OTG TIFF [facility] CV Stress ECGon 09-03-2023 CV Stress [...] reported separately. Jaskaran Tejeda MD JOB #: [id number] ul Final Dictated by: Jaskaran Tejeda MD Dictated DT/TM: 09/03/23 10:07 Signed (Electronic Signature): Jaskaran Tejeda MD 09/21/23 8:26 am Technologist: ADE [facility] NM Myocardial Spect Multi Re st/Stresson [...] MD, V. 09/03/23 11:43 a Technologist: TARAN [facility] Provider Orderson 09-03-2023 Provider Orders [id number]#1.00OT [facility] Provider Orderson 09-02-2023 Provider Orders [id number]#1.00OTGT IFF [facility] Provider Orders [id number] [id number]#1.00OT GTIFF [facility] Consent Formson 08-24-2023 Consent Forms [id number]#1.00OTGT [facility] Surgical Pathology Reporton 08-16-2023 Surgical Pathology Report (NOTE) [id number] [facility] CONSULTING PATHOLOGISTS [facility] ANATOMIC PATHOLOGY [address] [place] [id number] SURGICAL PATHOLOGY CONSULTATION Patient Name: GURVINDER CHAUDHRY MR#: [id number] Specimen #[id number] Procedures/Addenda MOLECULAR PATHOLOGY REPORT Date Ordered: 09/16/2023 Status: Signed Out Date Complete: 09/16/2023 By: Obie Marie M.D. Date Reported: 09/16/2023 INTERPRETATION AT THE REQUEST OF DR. MISSAEL TEJADA, BLOCK D1 WAS SENT TO [facility] FOR DECIPHER PROSTATE BIOPSY GENOMIC CYLINDER TESTER TESTING. THE RESULTS ARE FOLLOWS: GENOMIC RISK IS: LOW RISK OF METASTASIS WITH RT OR RP: 7 YEAR: 0.5% 12 YEAR: 1.1% RISK OF PROSTATE CANCER MORTALITY WITH RT OR RP: 17 YEAR: 1.2% RISK OF ADVERSE PATHOLOGY AT RP: 18.3% PLEASE SEE [facility]' COMPLETE REPORT ([id number]) FOR DETAILS. Case report, all slides and [...] second Pathologist who concurs with the diagnosis ([facility]). Riccardo Hutson Electronically Signed Out 08/19/2023 [...] negative for racemase. Controls are adequate. Normal [facility] Standardon 07-15-2023 eGFR Non AA >60 Invalid Interpretation Code [facility] Comment on above: Performed By: #### 1 [id number], 4794981, [id number], 1786967, 1122808, 2405671, 5495542, 0046705 #### [facility] (DEFAULT) [address] [place] [address] eGFR AA >60 Invalid Interpretation Code [facility] Comment on above: Performed By: #### 1 [id number], 5798808, 1543147111, 5030176, 0350076, 2760566, 3886693, 8504718 #### [facility] (DEFAULT) [address] [place] [address] Albumin [Mass/Vol] 4.5 g/dL Normal 3.5-5.0 [facility] Comment on above: Performed By: #### 1 [id number], 6885670, 2761907603, 2194460, 9267806, 5353552, 1929885, 3074430 #### [facility] (DEFAULT) [address] [place] [address] Alk Phos 44 IU/L Normal 32-91 [facility] Comment on above: Performed By: #### 1 [id number], 3091320, 1762864672, 4664318, 3356127, 9069360, 2280425, 3908236 #### [facility] (DEFAULT) [address] [place] [address] ALT [Catalytic activity/Vol] 35.0 U/L Normal 17.0-63.0 [facility] Comment on above: Performed By: #### 1 [id number], 6100601, 9588166353, 1447781, 0782258, 4624797, 5092179, 6611866 #### [facility] (DEFAULT) [address] [place] [address] AST [Catalytic activity/Vol] 35 U/L Normal 15-41 [facility] Comment on above: Performed By: #### 1 [id number], 8961533, 1320957042, 5547868, 4005452, 4831011, 1297152, 2049525 #### [facility] (DEFAULT) [address] [place] [address] Bili Total 0.7 mg/dL Normal 0.3-1.2 [facility] Comment on above: Performed By: #### 1 [id number], 6571880, 5546801484, 4775284, 1585289, 0935047, 6992887, 0775508 #### [facility] (DEFAULT) [address] [place] [address] Calcium [Mass/Vol] 9.4 mg/dL Normal 8.9-10.3 [facility] Comment on above: Performed By: #### 1 [id number], 3596332, 6511027669, 4451908, 7888122, 7693212, 5541398, 0119731 #### [facility] (DEFAULT) [address] [place] [address] Chloride [Moles/Vol] 102 mmol/L Normal 101-111 [facility] Comment on above: Performed By: #### 1 [id number], 7301720, 9091566308, 0413278, 1290494, 7749831, 5119455, 7009952 #### [facility] (DEFAULT) [address] [place] [address] 17489 CO2 [Moles/Vol] 30 mmol/L Normal 21-32 [facility] Comment on above: Performed By: #### 1 [id number], 0745019, 5508677428, 3435044, 0795344, 4075637, 7602734, 1404975 #### [facility] (DEFAULT) [address] [place] [address]37 Creatinine [Mass/Vol] 1.15 mg/dL Normal 0.90-1.30 [facility] Comment on above: Performed By: #### 1 536254589, 2942688, 3877580876, 6626221, 0708174, 8722276, 8822813, 4418012 #### [facility] (DEFAULT) [address] [place] [address] 58749 Glucose [Mass/Vol] 88.0 mg/dL Normal 74.0-118.0 [facility] Comment on above: Performed By: #### 1 953158975, 2411053, 4537827405, 4815521, 9484414, 0508718, 8540214, 3596190 #### [facility] (DEFAULT) [address] [place] [address] 42582 Potassium [Moles/Vol] 4.1 mmol/L Normal 3.6-5.1 [facility] Comment on above: Performed By: #### 1 574675336, 1132520, 0983833668, 6595501, 2439645, 4594030, 3184399, 9852265 #### [facility] (DEFAULT) [address] [place] [address] 68667 Protein [Mass/Vol] 7.1 g/dL Normal 6.5-8.1 [facility] Comment on above: Performed By: #### 1 750736804, 2593664, 5959278615, 4026208, 9952364, 5006959, 8369547, 6156604 #### [facility] (DEFAULT) [address] [place] [address] 44419 Sodium [Moles/Vol] 140.0 mmol/L Normal 136.0-144.0 [facility] Comment on above: Performed By: #### 1 [id number], 4489338, 1859406601, 6825472, 0025578, 0415278, 1135123, 5899384 #### [facility] (DEFAULT) [address] [place] [address] 14998 Urea nitrogen [Mass/Vol] 25 mg/dL Normal 8-26 [facility] Comment on above: Performed By: #### 1 227452847, 7948198, 0092737798, 0403453, 9675583, 4473288, 9063484, 7288713 #### [facility] (DEFAULT) [address] [place] [address] 13801 Albumin/Globulin [Mass ratio] 1.7 {ratio} Normal 1.4-2.6 [facility] Comment on above: Performed By: #### 1 862101574, 1881378, 5286363474, 6642505, 9318449, 2925934, 7958024, 4198110 #### [facility] (DEFAULT) [address] [place] [address] 62960 Anion gap [Moles/Vol] 12.1 mmol/L Normal 5.0-19.0 [facility] Comment on above: Performed By: #### 1 [id number], 0527759, 9329419262, 9743800, 2252560, 8962239, 2827262, 6209800 #### [facility] (DEFAULT) [address] [place] [address] 45549 Globulin (S) [Mass/Vol] 2.6 g/dL Normal 1.5-4.3 [facility] Comment on above: Performed By: #### 1 907530054, 3380214, 3764920604, 3744650, 4941205, 1025565, 9584462, 6152850 #### [facility] (DEFAULT) [address] [place] [address] 96739 Osmolality 283 mOsm/L Invalid Interpretation Code [facility] Comment on above: Performed By: #### 1 [id number], 9858086, 1097282229, 2717112, 8077430, 5660703, 7096956, 4393994 #### [facility] (DEFAULT) [address] [place] [address] 15883 Urea nitrogen/Creatini ne [Mass ratio] 21.7 mg/mg High 4.6-16.2 [facility] Comment on above: Performed By: #### 1 910325440, 6988363, 4215783060, 5544719, 8336693, 6322952, 7098709, 8955842 #### [facility] (DEFAULT) [address] [place] [address] 40707 GGTon 07-15-2023 Gamma glutamyl transferase [Catalytic activity/Vol] 22.0 U/L Normal 7.0-50.0 [facility] Comment on above: Performed By: #### 1 365236779, 8274141, 0184644766, 2524431, 0230031, 7156702, 0593403, 7639248 #### [facility] (DEFAULT) [address] [place] [address] 17607 Iron Levelon 07-15-2023 Iron [Mass/Vol] 114.0 ug/dL Normal 45.0-182.0 [facility] Comment on above: Performed By: #### 1 [id number], 3599292, 4646752124, 5778961, 7198251, 4679036, 5748510, 3059543 #### [facility] (DEFAULT) [address] [place] [address] 81792 LDHon 07-15-2023 LDH 257.0 IU/L High 98.0-192.0 [facility] Comment on above: Performed By: #### 1 879715784, 7400174, 3349361909, 2333834, 9409292, 8109520, 7099439, 9771754 #### [facility] (DEFAULT) [address] [place] [address] 70295 Lipid Panel Standardon 07-15 Cholesterol [Mass/Vol] 188.0 mg/dL Normal 66.0-200.0 [facility] Comment on above: Performed By: #### 1 234181169, 2586046, 2687948770, 6202266, 3998431, 3967656, 4160392, 8750636 #### [facility] (DEFAULT) [address] [place] [address] 73570 Cholesterol in HDL [Mass/Vol] 45 mg/dL Normal 40-71 [facility] Comment on above: Performed By: #### 1 348682965, 8675878, 7486969016, 6289829, 5466618, 9431387, 8733627, 9983463 #### [facility] (DEFAULT) [address] [place] [address] 20206 Triglyceride [Mass/Vol] 130.0 mg/dL Normal 0.0-150.0 [facility] Comment on above: Performed By: #### 1 082055358, 9607535, 0842896292, 4337216, 5255352, 2119418, 5563371, 5088028 #### [facility] (DEFAULT) [address] [place] [address] 62354 Cholesterol in LDL [Mass/Vol] 117 mg/dL High 1-100 [facility] Comment on above: Performed By: #### 1 721527673, 8326869, 5737656700, 9147237, 1639006, 4353438, 2321370, 0568943 #### [facility] (DEFAULT) [address] [place] [address] 93788 Cholesterol.total /Cholesterol in HDL [Mass ratio] 4.1 {ratio} Normal 0.0-4.5 [facility] Comment on above: Performed By: #### 1 033965343, 0830146, 5148717578, 5037072, 9061577, 9636871, 6798217, 8487380 #### [facility] (DEFAULT) [address] [place] [address] VLDL. 26 mg/dL Normal 5-40 [facility] Comment on above: Performed By: #### 1 125059393, 4964471, 3902084693, 2864278, 4012053, 4367390, 0594934, 9994826 #### [facility] (DEFAULT) [address] [place] [address] PSA Screenon 07-15-2023 PSA Screen 5.97 ng/mL High 0.00-4.00 [facility] Comment on above: Result Comment: [employer] Clinical System (Chemiluminescence) Values obtained with different assay methods or kits cannot be used interchangeably. Results cannot be interpreted as absolute evidence of the presence or absence of malignant disease. Performed By: #### 1 [id number], 3242737, 4296645969, 6051133, 6968612, 7793159, 6558244, 9158742 #### [facility] (DEFAULT) [address] [place] [address] 62862 Phoson 07-15-2023 Phosphate [Mass/Vol] 3.2 mg/dL Normal 2.5-4.6 [facility] Comment on above: Performed By: #### 1 156723822, 1143543, 8540158553, 6215563, 2265044, 9985403, 0061424, 9471957 #### [facility] (DEFAULT) [address] [place] [address] 70677 Uric Acidon 07-15-2023 Urate [Mass/Vol] 6.0 mg/dL Normal 4.8-8.7 [facility] Comment on above: Performed By: #### 1 [id number], 8387127, 6041800024, 7345900, 2408620, 1742016, 5957514, 7962672 #### [facility] (DEFAULT) [address] [place] [address] 05183 Encounters Encounter Date Encounter Type Care Provider Facility Start: 09-03-2023 End: 09-08-2023 ambulatory [facility] Start: 09-02-2023 End: 09-03-2023 ambulatory Eli Santos Facility:[facility] Start: 08-16-2023 End: 08-16-2023 ambulatory MISSAEL TEJADA [facility] Start: 07-20-2023 End: 07-21-2023 ambulatory [place] Erin Ch Facility:[facility] Start: 12-01-2022 ambulatory JAIR CARPENTER Facilit y:H1 Start: 07-16-2022 ambulatory ROS CM Faci lity:H1 Start: 01-28-2022 ambulatory ROS CM Faci lity:H1 Start: 08-28-2017 End: 08-28-2017 Emergency department patient visit [facility] Erin CH [facility] Start: 03-02-2017 End: 03-03-2017 Ambulatory DEFAULT PHYSICIAN Facility:[facility] Payers Date Payer Category Payer Unknown [id number] 1965 Unknown [id number] 2.16.84 [id number] 1965 Unknown [id number] 2.16.84 [id number] 1965 Unknown [id number] 2.16.84 [id number] 1965 Unknown [id number] 2.16.8 [id number] 1965 Unknown [id number] 2.16.8 [id number] 1965 Unknown [id number] 1957 Unknown [id number] Unknown Summary Purpose Family History No Family [...] section and content) DATE CREATED AUTHOR 03/15/2018 [facility] DATE CREATED AUTHOR AUTHOR'S ORGANIZ ATION 03/16/2018 [facility] DATE CREATED AUTHOR AUTHOR'S ORGANIZ ATION 11/28/2022 [facility] DATE CREATED AUTHOR AUTHOR'S ORGANIZ ATION 09/17/2023 [facility] DATE CREATED AUTHOR AUTHOR'S ORGANIZ ATION 09/21/2023 [facility] FOR RECORDS PERTAINING TO PATIENTS WHO [...] BE BASED ON THE PRIMARY CLINICAL RECORDS. [employer] [facility]. provides no warranty or guarantee of the accuracy or completeness of information in this document.
[2024-02-23 16:55] LABS: Basophils Percent Auto 0.5 % (0.2-2.0); Eosinophils Percent Auto 0.5 % (0.9-7.0); Hemoglobin 7.9 g/dL (14.0-18.0); Immature Granulocytes Abs Auto 0.02 10^3/uL (0.00-0.03); Immature Granulocytes Pct Auto 0.5 % (0.0-0.5); Lymphocytes Percent Auto 25.1 % (20.5-60.0); Mean Corpuscular HGB Conc 33.9 g/dL (29.9-35.2); Mean Corpuscular Hemoglobin 30.5 pg (25.9-34.0); Mean Platelet Volume 9.4 fL (9.5-13.5); Monocytes Absolute Auto 0.5 10^3/uL (0.3-0.8); Neutrophils Absolute Auto 2.3 10^3/uL (1.4-6.5); Neutrophils Percent Auto 60.4 % (43.0-75.0); Platelet Count 158 10^3/uL (150-450); Red Blood Count 2.59 10^6/uL (4.70-6.10); Red Cell Distribution Width 15.9 % (11.0-15.0); White Blood Count 3.8 10^3/uL (4.0-11.0)
[2024-02-23 17:09] LABS: Hematocrit 23.3 % (42.0-54.0)
[2024-02-23 17:16] LABS: Erythrocyte Sedimentation Rate 33 mm/hr (<=20)
[2024-02-23 17:17] LABS: Alanine Aminotransferase 45 U/L (16-63); Albumin Globulin Ratio 1.2; Albumin Level 3.9 g/dL (3.4-5.0); Alkaline Phosphatase 61 U/L (46-116); Anion Gap 11.2; Aspartate Amino Transferase 19 U/L (15-37); BUN Creatinine Ratio 13.8; Bilirubin Total 0.4 mg/dL (0.2-1.0); C Reactive Protein <0.50 mg/dL (<=0.50); Carbon Dioxide 30.7 mmol/L (21.0-32.0); Chloride 103 mmol/L (98-107); Estimated GFR (African America 55 (>=60); Estimated GFR (Non-African Ame 45 (>=60); Globulin 3.3 g/dL; Glucose 103 mg/dL (74-106); Potassium 3.9 mmol/L (3.5-5.1); Sodium 141 mmol/L (136-145); Total Protein 7.2 g/dL (6.4-8.2)
== END 2024-02-23 16:38 | disposition home or self-care (01) ==
LOC: LAB 16:40
PROVIDERS: PCP Family Medicine
DX: L02.415 Cutaneous abscess of right lower limb (principal)
CPT/HCPCS: 36415; 80053; 85025; 85652; 86140

== ENCOUNTER 2024-03-10 10:41 | Outpatient (OUT) | payer OTHER, SELFPAY ==
--- OUTSIDE RECORDS SUMMARY | 2024-03-10 10:47 | XMS_ITS | CCD ---
Author Organization [facility] Care Team Providers Care Inventory Representative Name Role Phone DEV CH Unavailable Unavailable [...] Translations: [Keflex] Drug Allergy 09-20-2009 AOF [facility] Repository Problems Active Problems Problem Classification [...] Coding Summaryon 09-16-2023 Coding Summary HTMLBase 64 FxbtqdqkKZe1gGf+PGhlYWQ+ HS7RAYQkF79qxOOtyW4mO0LM TElOSywgQVBQTElOSyIgbmFt OH6caPNlHRLz IC8+AD4hJNPbErhpxNIpp4N9 kUR7L20txu4cMAmfxDT8GLWw YkPrxiqom0wapLl3LMfsRzzn OyBt OGFnjM78GNY6nA14Yw53lSUj lHSvt8mykQm7DgMkVLFuIDH6 kTkbHThdv9MzLLIiA98qpBFy c2U6 VDNwyQkpdJEmLiElzJW7iB7x HBzhvjezv0bulikvXyd4xh75 rEDfh3B0cPE4A0MmvbM8NFQj bGQg AsooxQGZdC8qiylag4wmnisr GsLfFABoNHz3FMn1OAYtgFvw UeUdQQ70KZH7NFXdzfBbF6Zh LWFs dXulYaA6v4G2Zb8DG7YZEtyh O7IZMCNANQnfjWM+HL17tn70 M1OrJvlnHfh0SDSdYIE6bGI8 aD0n NVTaPMofr2Q0gSG9W5KonhPe rz1zd9vtZGNcDIfjO54phPMv x9R6HTWjnKC4YKWjiPemBoDi aG93 Oyc+YLJleYqul8WcYtylb0cs k4mpdSf7JlplHOGhodZudOmj LBV3p0OiTk0rIZPkjUG9qAU8 aD0i IdBnEbA0UNrzE273YeXuiDTi IwonR39mG6LtcJQ+PHRyPjx0 JVVwjPjhUZ7vA1BhLTJzxbzn bGVm qKnfYR4uGRWxzgehPFTpeX3j ACLqJ1j4FkGjYuI5ZKzcF0Qz NOYhynzwUx88dT4oMlCrOdU7 MGlu L3UislE1HPOsrYRdUOayKJO4 X43uc3Q8PCQmDPScJXD3kEN0 kG8reCpyoacjaRLkzEwbxjTc dGlj IKdnKTfrF886VKYonEusHaZd ZGluZyBEYXRlOiAgMTIvMjgv MjAyMzwvdGQ+DQGvECU4sNnp PSAn xSMjYWnqHq2qnWinlMdzRN3f QJMxqlnbPFYxsP1oXNWtsNGu zNaxPI0eWITuewmtk168CrEl MHB0 DKLxvOIlK5CooQ2oKvHrPOLn XUHuM0UneWLcUNlxK997JGrv DxE2DUSipsOiU0ZqTFNqyAua OiB0 e4U9Ju1Cw3QfpyuoN3BymVKu FsNcAntvXRe7A9CoYoyzwXV+ ER79HWKnYV61RIz7AFS3fWzo PSdi XFTqI2QvhR1rOhLdVEBdNFDl Oyc+PHRhYmxlIHdpZHRoPScx EBCfWuAglCsrUG0cBt1rJQJc LWNv qHbgvROzOuTnr3hmIWPiUYvs WV9xxJrbW3ThmSW6TFBxl4f1 Xs17S52lE6JlzNA+PGNvbCB3 aWR0 sA3uVgSpHoR1QRrjU660JhUe qPSyJgrtf3twn5dplAq9TfR8 MAEkihFegFfvTYH6v9SoWa98 Y29s IHdpZHRoPSIxNSUiIHZhbGln at1peE1eOs1+YTDtrVJ2cMU9 oM3iDgAnQxF4CVocT466WdXp cCIv Hmxiy4dlt8jfbQs3WcBfAOHm pyDqqSngNLX1g7JjNh09D6Yn dGafl6CoYds6tv84eXVqg0P2 bGU9 B8BeBERcajnuqFVgdVkjZD9s GDTpbcerKYAqgO9wQNNyO7j3 LyGpHfG7YSxtX7XsqrD6CIGk bGQg OAIeiETUkC1hizstt7douwax GzElHGBrEKl9RQd4AAPtlCpu PhYqSPD7DnW8NSH3fOOtxC5u bGln qvcqnJ0wOfm+ZQE3vXSkbLKX IR1bPspncTE+HPPwQVI4mZev ZItyABOzoL9hBYXyG9l0DqWs LjA1 VXmgV6SotyG0BQTmuTPxOAXq oRRDeG9sgzzqs8jliounPxRa LYSaEYf2ASc1ZPTexRljJkAn ZWZ0 QoB0YJW7aSAaaQ4rlNbjddue wY8jMmk+VemvxTknMEY0KIb4 X3VvLui6WKGqgZaqKS3wiTHw ZGlu Ft7srMyymLwwWR5aMFRljhaz z545TqGll5egFUOuoAWoUJjd UPO1O74bf2D1WTXuJDIwSVW6 dGV4 sT1vmDxdzpwkoOBaoYpuaaDv yUkdHJemMEqiD810HNIltSjx YzKzFXf5R9YuQtj5SUYrvMgk ZT0n hUDkNOnmGc7tzBhnmMpvYD0n LGRmobtfe232OeOtp9hmFYBz iGZoHYqzZDL4C54bb1P8EKEm MDAw SXJ9mRG0lA3diIlflskrzZOj rXpmbnFkaRsdDWepIUbtT236 THQjdEtbMdTjmSb0G5LqRdk6 ZCBz bDctDJ7odHZwBLoxQp1teZyj tQfxQO7bHIQckpugg676YeYt j6ftKZXqqWUiRGpbBIK8K69i b3I6 EBBbKIRqEBU6nOP9tF7onIbe bjogbGVmdDsgdmVydGljYWwt BXvbQ204GYFbuAebBxHwrVqr bnQg LPrlIMx3C0AsNlgomLN+PC90 JGFbYN64kDIczFLgw5pbjVs6 BwKmCEHrIJM0rGhuCAkfa9Xy ZXIt W08ehBYeg5E7QDGlwNnygSMt PwOssCT9zH8uAPjdrvstc6et tdclLqqlc5bmpw84fP93J61o IHdp VQQwJASzRZLhEVTkrAcfqo2r vT3pQi4+LVPgmHS0wOE1fW2n NIZqJuE3YEphJ087UhTiaQDu Pjxj c1tkb9xtmZv5XeI0AQNbueGl nSspTOT5r3VoQl83W09bOCqx RGVmIBTaWNYlKKEzkWbfik7z dG9w Ii8+XSMspPN5vYH0dH2jHdFz NtV1CYjnA963AxOexVLrEppe C63cU2XqeKY+GEIhOat3CJQu dHls GY6vpDWhQAouEl7kWBC5CdWr EkLlFJmkM8McJTLvetdoprhh sTH7BLJoUHUicL32Bq2ahSfp MTBw mRYGzD3txryux7owptboTmRi EMRiLJb4KOg7HKNabQyoQbXd XOM1AaX3HBX9yIXgoO0zeRuj bjog dF9lE1OrWXFvbbopAw92yN8d TcKrHeR9CGxgTih+RFVSSVZB L4CqRRmGOtnkLXkATS82F0Wg Pjx0 TAJzfCquSG3btTSrGJcvZv3l xFxhaBdxFP8xLFJelvjfPZKk mI6lNTDxzTHcqRwgSF9wHONe bjtm z968UjLqEKF9ZDVqoGTbA7Sa gC5tPxHaFBPsZILmU4KwxNCj STsgK546OGvuNfV9JYWozfId Y2Fs APXfuWrxCiG3z3T0Vy0wDU0f Fc1hASE9EK65UK01kOZlh0W7 iAA3A7FpGUErtetejoulqUC6 IDAu ZTMkfP51wMRqTWcsWb1lt3T4 k282VNIfBNUycV84Wc5yeHxi HSBniJKXzV5rsyvps6nrhewp IzAw ADBvRPg2ZZs5UAMlhOlmOoBi BOG1HbJ6AJJ0oLMtoN0ssCrv ceufwU1gPfl+NTYgWWVhcnM8 L3Rk Uls6CUKbuTstIK2hwSExHFlg Ed8tcTboqCklHL3sJEPoteua SOMnyJ3lUTXikTMkjHnqWI2z NTBp wfjny947AzHoONL6VJUzfPOx S3GmuS9vNvFkTJIuBIQzI7Ay hNVqXRvqA830ZAqiPhB3XWUm cnRp B0GmZKGhsKymFvS8e9V1Ax3S RXsEYZ90XE49vMGnn6K5dJY5 L7QpIFEzktwvurmnmHK7DTTt MDUw nV14vUMhTWkzMd7ha2B3k049 KZAwCKKwxM89Cy5rcGbyPTYz bZZAmS9gqeakr6bbmlusKtJw MDAw KVu2STo2APQtfZhgXkVfZGR5 GcU8CYW5cNZiiI7uqWenuiag jM2hKmn+W9F6sPY8tMFbuEWd biBh IEJlZDwvdGQ+WF13jt68H3Rg VaioWbi1HCQjUTQ2tBL3vC0u BGFvFIfzh5Y4lEO5Z0MndfVh ci1j u3bsWMMxDKkcV46mrHCte0N4 TYQbvDI1WKVolWcgMyHuuA66 Oyc+PIOfeEkhg1JjRxxoh6ka d2lk sPx4LmAqYNIaymQegQllNNO0 r8UiLp76J59lEEjaJVAbDPWa FDTzPRDqoRpmaz8aqT9rQw0+ PGNv hKF4dYK4xS7eFrRqDkZ1VVym Q197EzTgjJGxNmayl7tco8la zWj8CmKkZLSqwlNluVumOFZ4 b3Ai To87U4HvmZvgb7JaGwu3fk39 sULbf3R2oJO1A1VtZUNhxtgg uWKssNauWJ8tVVEfhusvVPUj aW5n REZzI2b1ToMtXtW5NOffH7Lh fvX7THCxzWUaASWmsRQCgL6p glixq5yfvjitEaXmWXFhBMr1 ZXh0 GUWywZymHoMaNGV7UlG1HHR9 yZFxtG5vvIzkgqjtxC3eAue+ NAw0j2rxdLZyLA0viDU2UR51 ZD48 hITaw3J5xIJ7C6SzGMLstenx pzelePA0NSNmFDIqdV16Jx2t cBloGt3gQOMbWNL0VKYraSYf O2Nv cE6fKtOtCOAaYEOoP0EfcMKs JSonO533YDbkWpH3IJNzliTl I9JzQAIwwNmkApN3s5B4Hg7P SU46 XH65ZS71bHHji1J5mWQ0X5Ia ABEylccwcsefjGV0OMQjKFXx hQ74On8mpYbwJt2wNZHvMIB4 IFRp oXKyZ6VbmA8wZaEcQTLjASRn W1JxlLGpHKnsB494NEbdXrR4 TOZmktXmR4XdMIGuwHpvUjT2 b3A7 Tt4RKh55LC60ME21hNMvz6H9 tXL9D0QwIYMfneeudkcgjPN0 AQFyVQPthH82Kb3etEfvUy7r ZCAx EHR6WVJslAWvG1JnxT2bNrQs FZJdFCCsA7LtvGDmPGblP120 HTrgMoE8AZDredLbV2IvYRWf aWdu CqB2o2L3Di8RQWdbjni4S5Bf PjwvdHI+CK68TPXbZT24uQWn wJRhe0nifPp1NaIoTIPmVXI9 eWxl PSd (more content not included)... [facility] Coding Summaryon 09-15-2023 Coding Summary HTMLBase 64 XlvghvbyIVc0rFu+PGhlYWQ+ ML1TFGOfT87gsSNjvO7rM8AO TElOSywgQVBQTElOSyIgbmFt EG6eoGPyPBCt IC8+LR7jNBJqRmeplHExg3T4 sGZ8S14dwe8iSMdzcIB3AORj DsZbylntv8pgrKe1CWumRxhi OyBt NHLgiG10ORF2uN12Ym87gBUw qJQta1fsmHe0LfFiVMZhQTB0 xNtnAAuwr7FsDAIcJ36yzTNk c2U6 OYMpuZswlNApRzKpzQT8hC3w ZPchykuwp7javgtcCze4jb28 eVXys5V0jUB2V5QjcoF3UMRu bGQg XhjypFPZeU4skrvxo0vlsxgz XhLyXFDzDLz4XFr7GZLhoCvu RgIuTR96ZKQ6REJeuvPvT5Xd LWFs wVkyQvT8w0K0Cz8UP1KBMvab M5HWKJUDQRxbqUJ+AQ00gl44 Q3PsBjipGog3JRXaKNB9cWF1 aD0n QFAtYKfbo5P3fAA5B2UrqpOf gv7bn4piRRXsZBhmM50xpXGj g7B4MMVrmZW1SSLfpVosZsAq aG93 Oyc+NINmvWvne5WdRagnt3vb x1euuKd0XuiqFTJdoqKxnJut JVK8i1OxAb3gJTIwtZE6bWC8 aD0i GyUeZgQ3SShmW466JoTwrJMm PuxwN08vB5ComXS+PHRyPjx0 CIWotQptTG2eT7FhEWYebkcg bGVm nFxqZQ8wKPKnvkgwIHXjaR6d ZNUqV5q3TlCkQwV5GIjtA9Ss KRBlciljPm83mH7kEoPnGmB8 MGlu K1QhosT5VCNqdRJcYCfpUVB4 N38gj7W5HFCoDVOyCXC1iBF9 cV6ygDsvaauprHJmpHhiotFe dGlj YItvRPirW624QDOjzBoeJoHw ZGluZyBEYXRlOiAgMTIvMjcv MjAyMzwvdGQ+MLVpGAO4pOsc PSAn gOKrRPnlZq6kmDxmvFdrYR4x SWPwaidnCPHhfX9vZHNreJSy vRbkAN9cSRMbkjxqt649UkOy MHB0 UDKlyRVbN9TamZ5aGvUuBITg WMInT3UkfTTeHUazH486PObn NsB9UIPsesMiI6LsQBOfyCgo OiB0 a2A2Lj2Tz3NlavboL3HmwXVf ItRbCyioZOh6U3QrJmgjgLY+ OY33HKJuQM80AIt5GGJ9uHxk PSdi HIDsE3XotT7eCsKsVBByDSUw Oyc+PHRhYmxlIHdpZHRoPScx IRRxOjYzvPzrPJ7tUt0dTCUg LWNv aVywtOCpTfRjs8biVFFlEZck HP4zrTvfC2GoaAQ3KJNgg8q3 St21Z31uV7HaaOK+PGNvbCB3 aWR0 xC6jIyAgIoE3SGuzL243NjYq gQYhExikd3wcl6xyaGj9JcW3 THEukoJrcItxSER0c4UvNf10 Y29s IHdpZHRoPSIxNSUiIHZhbGln hj3muP5uKf8+KLNwtIL1lPS8 zR8fFxMvDnA1HGwdQ943VaJy cCIv Barfr8nrv0kmjFy0PxJhYIZm rgLfzHkqZVH4m8SkIk76G1Dz oMuve9QhQnx8ox45vMCfk3O4 bGU9 Y0IaNRZgvxvgjNNhbLxpYN9g BWSuxchgXKOabH4iBFOmN0a3 OgZlXyL8WGmlY0ZptaY5IWBt bGQg KVTwfUSQkW5qdpyip9vmbylg DpJtSNRvDOq5RMn6BMChwEjo LqHuGKU0DoF3GJK9pWKmmX9x bGln allhkP5cFde+ICI9fXLcoMTF GF1sHxrvhGM+VIQlSWL2eLyo ZIhtGLHuvT0yKMQzW6a0ZwLm LjA1 PBaaQ4GvdwJ9DMGutCQgCNAb xUXGmN5rbvlhn8dpcoqdYkIm VBBjOZy3NWg8LSBqoBfhQlHh ZWZ0 LjM2YIH4bFYesB0tgMpflucc hH6qZya+UvpvyNaxZLP0DFj6 M4SaFgg0FDNueIvkSL2zmVUa ZGlu Ry6tuKmhgCtjQM0wCTMelogz x997RmTxe7zkSKYflLMdCIlv MCT6X22dv9M3LCRjQYQkNRY6 dGV4 eQ2umAtqfbaolZPunEyeyqSp yDxhPMtzIZiwC858DRPbkHms YpSdWMt9R0HyRln5OWUspYua ZT0n pPEcKFmnUk1msUajvFyoOA6y CBPpnnzgk434VzDyu1jiHYJp xGPbHCfzQPJ1D49ke9Y6GUVq MDAw UVF8tJF8jP8hpQhquceuiPLm hLunwmOjfQnzSXduFBsyI322 OMRbhKrzWuBttIv9F5NiNnm5 ZCBz cDfpSQ5drIYiGIraVp6ypWda dGdrWN2hAFYduwnxa759YpJi u0qfLTVkpCBhMTmbNDY7M14m b3I6 BCRqXARhKKC8vAC9iJ1giXix bjogbGVmdDsgdmVydGljYWwt RWerU121PIBcuPtxJlNduAks bnQg DHrhFUe9C2ZwFsgeiJV+PC90 GBVuZP83fEBoxRLfu1acbVh5 LiFrDQBvYDE7iWpwKRkqh1Tc ZXIt M88ekFQmz6E2QYVesPjqjJLj TdHieWK5gP2iGIoiaycco7sn evxqTyhxf5cnif77xM95I25r IHdp SGHiDYSzYWUgAYWfrFnnvj6i iU8lJr4+MDZkbPM1dHH5zR2b ATFiHmX9XLmiS144PjKysYKn Pjxj b1xry9xzrXz8YzL8DORzrlMu zObuKJP1h1UcHd95G20nFNvo KBSyRXEaOTEsYZNzyVixuy4t dG9w Ii8+ILVygBJ3dVZ3lZ6rGkHr NdP5RWnrF727LwXfyAJzLmmj R57jM4ItyPP+CZHkRah7PKQo dHls MC8ehUAnWMznKd3uGVB6AvYr VbUmHRccJ4SrSBShuxcarien zES5IKSoGBLljT17Vd2fnHtu MTBw nSBWtB4mhgkme1mrzrhqCrEd RDSzVLj0UTp8XSHmnFhmJsWo LAE6FdW2FRA8uBTthV4zzJhe bjog oE1kP2KoQIMwqjcjVw65jL0w HlAgHfQ5ERroYtv+RFVSSVZB C9RhXPdSCtedZKaSNP57M7Qo Pjx0 MFRrkXlwPH2qpAPfCOftUo7l bQzhhBviKI4bOUErogpyLSKa eP8lAISxsTQavXcjBU5dRCJi bjtm j121FcMjKIO4EXJzmINtC5Ej cR9cVkQpTRXbNIHwJ1GilYUf ZTgcM534EKfnTqR0XHWowkNs Y2Fs UBOmsTysWxE4u9Q4Jh6rRE9j Py7zKHA0QK95EV07aLSjs9V8 kNO9O2VhZKSmnjiwbsdfsLV2 IDAu MGDfuB67yZBwGQntBf5ea3Q6 b660QBGmEXUxvX44Ru9ppIlc YUNqhODDnT3efwtzi8lkfpyf IzAw ZJOsCPa3UUo3CAFliXhqYwSh RIU4CnP3KQP6lLCxfG4odCin pxbfrU1rJdj+NTYgWWVhcnM8 L3Rk Fjk6QCMgvXrrMD7vjSIwQCcf Zh9dcJckqBspGY3bJDWmjqxx QDGihL7wKSTziIEegYuqWU4g NTBp divvu657NhWrLUK0NUYfjDZd M9FrjO6bVfCqNBZzSVEkL6Ib gTDgIQmyO463LZzaLeN0PIVd cnRp E4GaTINarAtxLyU8a9M1Ty7H WEfLWY37RT12eJUkt2Y1jJE1 U5PxQJCvijfijyrzgPB7HZNe MDUw xD64bERnLBryFo6gp0N2u856 UQWyRYUqmN43Zt0vtQecFKRw vTQYdZ8eanuya1iwmuivMeVy MDAw JHr5UEp1UNQbmTbkGpMeLHR5 EqI2MQY4oWFitX5hdNdvbcdg uD0zRne+G1J3Q1HiPmkokMZ+ PC90 ODJgMJ93yWBtfRSay1twaGc6 MqNhCETaOSD3uNxrGTkgh9Me ZTEyK30qyTZqc2J9LSKldFrf cHNl YePkzJD1uS0cTGasdklfb4rz amydXeumr8hywb39aQ76L85h IHdpZHRoPSIzMCUiIHZhbGln bj0i cA3iLb5+KZMiyKF8oZZ8cL9a IzOtEhW8WQwnI043IbKihZZy Eiqcy7sys1nsmOl1TtYhUJXf dmFs aClqHQM0c9EoQq26M50pZYdq KAOyQGMwGDBoVRAjzVocbj1s yN7qSb5+YN5wy5roax59eR65 dHI+ YQKeGSP5jFccIZdbUPDxwF8a IZmeIeU9DLTwZvBcfY83yBZs ZVwpTh0ekEpltOgsGE2qADOq bjtm t162CgDzw4nzKMCvjQOhNSbx EVO0R10hs5T3NIPyPCKiHIO5 xFD0rM5mmYuomzifeEChoHkw dmVy aIssWTxsOOviM589UNBmhSbt XxSeyNOjW4oxysCYZC4wClav dGQ+ENDcVCN1hWipQYwtQRMg aW5n FBBvD9l1ZpJnUbM4QHsqI6Tt eiF4NJSjnFEsTNZguMXJpG0z dilik0xzlejsWzKbFLVnWQw9 ZXh0 NOIueXeyIiRePKG9FfU7RXR3 cIIqnL3jbZddzlpizO2iYht+ RklOOjwvdGQ+UDQdUST0iBcz PSdw NMDsaZ9zDZKrA5s0WbReSlT6 XJlvG2KmvqN3CZZnaJAfEMMg jEGYbY9ltslrn6lobgyhVzPh MDAw OJy0UQz8FRKkvShhEuLzDGO2 KiJ8BIH7iUSmaU7eyEzjfbkb vI8kTok+TVJOOjwvdGQ+PHRk IHN0 oGpeXSljOJZnaT0kXBJbY7q3 MnZkAjD3RSxfG3JshiR5FHCw zOFwPVJtiHRHhN0qlkfhk5lb cjog XdHhQERrLXa7YDv4FQUfrDtg RlXiRQI3ZdK0QYY0wBEyfT3e hHwqmlcxpZ7fLqc+XQT5MDB5 PC90 XY16L6WiGqiqsFInsAK+PHRh YmxlIHdpZHRoPScxMDAlJyBz oUppGV0eQk0sPGXyWXBpzKhu cHNl OiB (more content not included)... [facility] Consent Formson 09-06-2023 Consent Forms 100.64.198..2020 [id number]#1.00OTG TIFF [facility] Stress Teston 09-06-2023 Stress Test [id number]#1.00OTG TIFF [facility] CV Stress ECGon 09-03-2023 CV Stress [...] reported separately. Jaskaran Tejeda MD JOB #: [id number] ul Final Dictated by: Jaskaran Tejeda MD Dictated DT/TM: 09/03/23 10:07 Signed (Electronic Signature): Jaskaran Tejeda MD 09/21/23 8:26 am Technologist: ADE [facility] NM Myocardial Spect Multi Re st/Stresson [...] MD, V. 09/03/23 11:43 a Technologist: TARAN [facility] Provider [place] 09-03-2023 Provider Orders [id number]#1.00OT [facility] Provider [place] 09-02-2023 Provider Orders [id number]#1.00OTGT IFF [facility] Provider Orders [id number]#1.00OT GTIFF [facility] Consent Formson 08-24-2023 Consent Forms [id number]#1.00OTGT [facility] Surgical Pathology Reporton 08-16-2023 Surgical Pathology Report (NOTE) [id number] [facility] ANATOMIC PATHOLOGY [address] [place] [id number] SURGICAL PATHOLOGY CONSULTATION Patient Name: GURVINDER CHAUDHRY MR#: [id number] Specimen #[id number] Procedures/Addenda MOLECULAR PATHOLOGY REPORT Date Ordered: 09/16/2023 Status: Signed Out Date Complete: 09/16/2023 By: Obie Marie M.D. Date Reported: 09/16/2023 INTERPRETATION AT THE REQUEST OF DR. MISSAEL TEJADA, BLOCK D1 WAS SENT TO [facility] FOR DECIPHER PROSTATE BIOPSY GENOMIC OCCUPATIONAL THERAPIST ASSISTANTS TESTING. THE RESULTS ARE FOLLOWS: GENOMIC RISK IS: LOW RISK OF METASTASIS WITH RT OR RP: 7 YEAR: 0.5% 12 YEAR: 1.1% RISK OF PROSTATE CANCER MORTALITY WITH RT OR RP: 17 YEAR: 1.2% RISK OF ADVERSE PATHOLOGY AT RP: 18.3% PLEASE SEE [facility]' COMPLETE REPORT ([id number]) FOR DETAILS. Case report, all slides and [...] second Pathologist who concurs with the diagnosis ([facility]). Riccardo Hutson Electronically Signed Out [...] negative for racemase. Controls are adequate. Normal [facility] Standardon 07-15-2023 eGFR Non AA >60 Invalid Interpretation Code [facility] Comment on above: Performed By: #### 1 [id number], [id number], [id number], [id number], [id number], [id number], [id number] #### [facility] (DEFAULT) [address] [place] [address] eGFR AA >60 Invalid Interpretation Code [facility] Comment on above: Performed By: #### 1 [id number], [id number], 3930090, 5384893, 1646124, 7464559, 5235357 #### [facility] (DEFAULT) [address] [place] [address] Albumin [Mass/Vol] 4.5 g/dL Normal 3.5-5.0 [facility] Comment on above: Performed By: #### 1 [id number], 4405234, 7009820938, 8239017, 5200732, 7120912, 3442493, 9787990 #### [facility] (DEFAULT) [address] [place] [address] Alk Phos 44 IU/L Normal 32-91 [facility] Comment on above: Performed By: #### 1 [id number], 0530913, 9366332675, 6759883, 7058216, 6419815, 9361738, 8809892 #### [facility] (DEFAULT) [address] [place] [address] ALT [Catalytic activity/Vol] 35.0 U/L Normal 17.0-63.0 [facility] Comment on above: Performed By: #### 1 [id number], 3526990, 5422829443, 0664594, 3920125, 5191811, 5302686, 5259605 #### [facility] (DEFAULT) [address] [place] [address] AST [Catalytic activity/Vol] 35 U/L Normal 15-41 [facility] Comment on above: Performed By: #### 1 [id number], 7884514, 7435066476, 5784367, 4600319, 3631343, 3980618, 8415214 #### [facility] (DEFAULT) [address] [place] [address] Bili Total 0.7 mg/dL Normal 0.3-1.2 [facility] Comment on above: Performed By: #### 1 [id number], 6603932, 8397308118, 2070925, 6527310, 4604856, 9891044, 6831840 #### [facility] (DEFAULT) [address] [place] [address] Calcium [Mass/Vol] 9.4 mg/dL Normal 8.9-10.3 [facility] Comment on above: Performed By: #### 1 [id number], 4266755, 6092311766, 0966265, 0481300, 7870692, 3984018, 2891564 #### [facility] (DEFAULT) [address] [place] [address] 54026 Chloride [Moles/Vol] 102 mmol/L Normal 101-111 [facility] Comment on above: Performed By: #### 1 [id number], 2270726, 8203421316, 4985506, 0749929, 2153258, 5953957, 1846750 #### [facility] (DEFAULT) [address] [place] [address] 37860 CO2 [Moles/Vol] 30 mmol/L Normal 21-32 [facility] Comment on above: Performed By: #### 1 [id number], 4268874, 7706353513, 0381465, 2856866, 5913082, 5162413, 6655070 #### [facility] (DEFAULT) [address] [place] [address]177 Creatinine [Mass/Vol] 1.15 mg/dL Normal 0.90-1.30 [facility] Comment on above: Performed By: #### 1 [id number], 8220982, 1692103282, 4464342, 0584457, 3688602, 8428800, 3142889 #### [facility] (DEFAULT) [address] [place] [address] 32042 Glucose [Mass/Vol] 88.0 mg/dL Normal 74.0-118.0 [facility] Comment on above: Performed By: #### 1 [id number], 9289759, 1353877289, 2642231, 5509023, 9896848, 9230728, 6731514 #### [facility] (DEFAULT) [address] [place] [address] 26463 Potassium [Moles/Vol] 4.1 mmol/L Normal 3.6-5.1 [facility] Comment on above: Performed By: #### 1 [id number], 8831339, 7562557214, 5840539, 0307712, 3908071, 6498152, 4200470 #### [facility] (DEFAULT) [address] [place] [address] 74774 Protein [Mass/Vol] 7.1 g/dL Normal 6.5-8.1 [facility] Comment on above: Performed By: #### 1 [id number], 1072138, 1970014178, 5003980, 4290082, 7708873, 3462506, 1409933 #### [facility] (DEFAULT) [address] [place] [address] 23525 Sodium [Moles/Vol] 140.0 mmol/L Normal 136.0-144.0 [facility] Comment on above: Performed By: #### 1 133948248, 0328145, 1672953443, 1920146, 4634330, 6517839, 8156008, 1967031 #### [facility] (DEFAULT) [address] [place] [address] 49286 Urea nitrogen [Mass/Vol] 25 mg/dL Normal 8-26 [facility] Comment on above: Performed By: #### 1 [id number], 7713231, 6434424952, 2217063, 5270721, 5145725, 5282218, 1894255 #### [facility] (DEFAULT) [address] [place] [address] 43804 Albumin/Globulin [Mass ratio] 1.7 {ratio} Normal 1.4-2.6 [facility] Comment on above: Performed By: #### 1 [id number], 8334818, 2926679650, 0254847, 3633147, 8304403, 0512347, 8967440 #### [facility] (DEFAULT) [address] [place] [address] 75079 Anion gap [Moles/Vol] 12.1 mmol/L Normal 5.0-19.0 [facility] Comment on above: Performed By: #### 1 [id number], 6668880, 7914865688, 8891955, 5040241, 8483939, 0292260, 1638099 #### [facility] (DEFAULT) [address] [place] [address] 71721 Globulin (S) [Mass/Vol] 2.6 g/dL Normal 1.5-4.3 [facility] Comment on above: Performed By: #### 1 [id number], 2018429, 7796249668, 2509851, 9850540, 3866243, 5891277, 3699780 #### [facility] (DEFAULT) [address] [place] [address] 47796 Osmolality 283 mOsm/L Invalid Interpretation Code [facility] Comment on above: Performed By: #### 1 [id number], 2958738, 3503940984, 8122208, 7551901, 4587115, 5083123, 1775626 #### [facility] (DEFAULT) [address] [place] [address] 64242 Urea nitrogen/Creatini ne [Mass ratio] 21.7 mg/mg High 4.6-16.2 [facility] Comment on above: Performed By: #### 1 451079130, 9208566, 4203007529, 2864035, 3832601, 5857666, 4381650, 6412602 #### [facility] (DEFAULT) [address] [place] [address] 67069 GGTon 07-15-2023 Gamma glutamyl transferase [Catalytic activity/Vol] 22.0 U/L Normal 7.0-50.0 [facility] Comment on above: Performed By: #### 1 345755768, 9743345, 4848779511, 1403845, 8049971, 9135006, 7037064, 8544873 #### [facility] (DEFAULT) [address] [place] [address] 91795 Iron Levelon 07-15-2023 Iron [Mass/Vol] 114.0 ug/dL Normal 45.0-182.0 [facility] Comment on above: Performed By: #### 1 703531606, 1106474, 2265710087, 6609186, 1679980, 9682044, 5884759, 3405831 #### [facility] (DEFAULT) [address] [place] [address] 48798 LDHon 07-15-2023 LDH 257.0 IU/L High 98.0-192.0 [facility] Comment on above: Performed By: #### 1 [id number], 7883490, 1035247830, 1160807, 9177855, 4829318, 5429467, 4395874 #### [facility] (DEFAULT) [address] [place] [address] 33729 Lipid Panel Standardon 07-15 Cholesterol [Mass/Vol] 188.0 mg/dL Normal 66.0-200.0 [facility] Comment on above: Performed By: #### 1 [id number], 6911771, 7717481536, 3118833, 1785707, 8969718, 8123716, 8019416 #### [facility] (DEFAULT) [address] [place] [address] 66982 Cholesterol in HDL [Mass/Vol] 45 mg/dL Normal 40-71 [facility] Comment on above: Performed By: #### 1 043981537, 4467580, 1341754452, 5324385, 5011997, 5548724, 6618684, 4800150 #### [facility] (DEFAULT) [address] [place] [address] 57163 Triglyceride [Mass/Vol] 130.0 mg/dL Normal 0.0-150.0 [facility] Comment on above: Performed By: #### 1 945060111, 0762168, 9851302274, 6039541, 9740752, 3835575, 2031245, 3616853 #### [facility] (DEFAULT) [address] [place] [address] 84111 Cholesterol in LDL [Mass/Vol] 117 mg/dL High 1-100 [facility] Comment on above: Performed By: #### 1 407804266, 3415460, 2813667059, 7348199, 4195561, 9870892, 4662936, 4462116 #### [facility] (DEFAULT) [address] [place] [address] 17839 Cholesterol.total /Cholesterol in HDL [Mass ratio] 4.1 {ratio} Normal 0.0-4.5 [facility] Comment on above: Performed By: #### 1 [id number], 4920581, 8476789158, 8687606, 5126118, 4170997, 3373234, 7527918 #### [facility] (DEFAULT) [address] [place] [address] VLDL. 26 mg/dL Normal 5-40 [facility] Comment on above: Performed By: #### 1 737462679, 8732778, 6027562976, 2001508, 4354651, 4277835, 3796408, 2930897 #### [facility] (DEFAULT) [address] [place] [address] PSA Screenon 07-15-2023 PSA Screen 5.97 ng/mL High 0.00-4.00 [facility] Comment on above: Result Comment: [facility] Clinical System (Chemiluminescence) Values obtained with different assay methods or kits cannot be used interchangeably. Results cannot be interpreted as absolute evidence of the presence or absence of malignant disease. Performed By: #### 1 [id number], 3081585, 5057283135, 8204522, 3127361, 8458112, 0414527, 4908217 #### [facility] (DEFAULT) [address] [place] [address] 68928 Phoson 07-15-2023 Phosphate [Mass/Vol] 3.2 mg/dL Normal 2.5-4.6 [facility] Comment on above: Performed By: #### 1 370202406, 4895633, 3898361136, 2122756, 2548859, 8039685, 5869351, 4056159 #### [facility] (DEFAULT) [address] [place] [address] 55749 Uric Acidon 07-15-2023 Urate [Mass/Vol] 6.0 mg/dL Normal 4.8-8.7 [facility] Comment on above: Performed By: #### 1 [id number], 4327963, 9477787709, 9210661, 9325629, 2413492, 0948501, 5325119 #### [facility] (DEFAULT) [address] [place] [address] 43715 Encounters Encounter Date Encounter Type Care Provider Facility Start: 09-03-2023 End: 09-08-2023 ambulatory [facility] Start: 09-02-2023 End: 09-03-2023 ambulatory Eli Santos Facility:[facility] Start: 08-16-2023 End: 08-16-2023 ambulatory MISSAEL TEJADA [facility] Start: 07-20-2023 End: 07-21-2023 ambulatory S[place]ord Erin Ch Facility:[facility] Start: 12-01-2022 ambulatory JAIR CARPENTER Facilit y:H1 Start: 07-16-2022 ambulatory ROS CM Faci lity:H1 Start: 01-28-2022 ambulatory ROS CM Faci lity:H1 Start: 08-28-2017 End: 08-28-2017 Emergency department patient visit [facility] Erin CH [facility] Start: 03-02-2017 End: 03-03-2017 Ambulatory DEFAULT PHYSICIAN Facility:[facility] Payers Date Payer Category Payer Unknown [id number] 1965 Unknown [id number] 2.16.84 [id number] 1965 Unknown [id number] 2.16.84 [id number] 1965 Unknown [id number] 2.16.84 [id number] 1967 Unknown [id number] 2.16.8 [id number] 1967 Unknown [id number] 2.16.8 [id number] 1967 Unknown [id number] 1957 Unknown [id number] Unknown Summary Purpose Family History No Family [...] section and content) DATE CREATED AUTHOR 03/15/2018 [facility] DATE CREATED AUTHOR AUTHOR'S ORGANIZ ATION 03/16/2018 [facility] DATE CREATED AUTHOR AUTHOR'S ORGANIZ ATION 11/28/2022 [facility] DATE CREATED AUTHOR AUTHOR'S ORGANIZ ATION 09/17/2023 [facility] DATE CREATED AUTHOR AUTHOR'S ORGANIZ ATION 09/21/2023 [facility] FOR RECORDS PERTAINING TO PATIENTS WHO [...] BE BASED ON THE PRIMARY CLINICAL RECORDS. [facility] provides no warranty or guarantee of the accuracy or completeness of information in this document.
[2024-03-10 13:22] LABS: Prostate Specific Antigen Dx 2.74 ng/mL (<=4.00)
== END 2024-03-10 10:42 | disposition home or self-care (01) ==
LOC: LAB 10:44
PROVIDERS: PCP Family Medicine; Visit Provider Urology
DX: N40.0 Benign prostatic hyperplasia without lower urinary tract symptoms (principal)
CPT/HCPCS: 36415; 84153

== ENCOUNTER 2024-03-14 10:27 | Outpatient (OUT) | payer OTHER, SELFPAY ==
--- NOTE | 2024-03-14 | XR_ITS ---
[address] [address] Patient Name: GURVINDER CHAUDHRY MRN: [id number] date: 1965 Sex: M Assigned Patient Location: Current Patient Location: Accession/Order Number: [id number] Exam Date: 03/14/2024 10:28 Report Date: 03/14/2024 13:13 At the request of: ROS CM Procedure: XR ankle RT min 3V PROCEDURE: XR ankle RT min 3V COMPARISON: 02/11/2024 HISTORY: RIGHT ANKLE PAIN FINDINGS: BONES:Stable talus replacement. Plantar enthesopathic spurring of the calcaneus. Slight progression of permeative pattern of the midfoot suggesting osteopenia SOFT TISSUES:Mild soft tissue swelling EFFUSION:None visible. OTHER: Negative. XR/XR ankle RT min 3V IMPRESSION: Stable talus replacement Electronically authenticated by: JOSIE DICKSON Date: 03/14/2024 13:13
--- OUTSIDE RECORDS SUMMARY | 2024-03-14 10:31 | XMS_ITS | CCD ---
Author Organization [facility] Care Team Providers Care Network Admin Name Role Phone DEV CH Unavailable Unavailable [...] [Keflex] Drug Allergy 09-20-[address] [facility] Repository Problems Active Problems Problem Classification [...] Coding Summaryon 09-16-2023 Coding Summary HTMLBase 64 ZjlubjzsELc7zGf+PGhlYWQ+ VI4KAIBiB93zkIZhlF3uE4US TElOSywgQVBQTElOSyIgbmFt YJ3urWLrTMVd IC8+FW9eJCWeTmeczJRol3B8 zNE5A30pvr8rEFmxnNB3ASNj IhSjcxtos3hodFs4LNjsEdga OyBt XEOrxP53VJQ8nR22Nv56pSPp dKLym2iukGw0WpUeKPWvMDG6 uLadUUgny3EvWMXtY07eoDIy c2U6 NHZajSkhjSBsXuMibHL6mH1i KMbvggghq0lkswzvRjx6ph85 rNOkv2F7uWF5B0BluzY6WVUj bGQg DvuzjZWWtC7dumdtk3smisrw DqDvAIJdIIy6ZBz5KEDelRud VvZfKZ25XWP8MVEwyuHvI3Ib LWFs hMjrSxB2y9G3Pk7IG2CBIice N5ZVNZIETJfiwAG+LH65eq42 H8LkMimySzv4KQIwBKS5bNB2 aD0n GCDtPQplc1E5eOO3R2YqxdWt qx0cn6vyOZClASmtQ80hzCXr h6B4TMSacKV7QEKlbDkbViIy aG93 Oyc+YWKwtQbdt9ZhKdkla8kn m5huvNr9YemcDSSitoWhgNie RLJ0q7DgPw0rDLIobGD5rAP4 aD0i IoTjDiA9QXwfI950QoXzcGAf MfvzX57gM4UenSH+PHRyPjx0 IDIjaXtjZY4rA4LzUPTtvlas bGVm qAkzUZ8rOSKcvuhjAJHiaP0i AXWvW0w8JcQxZrL8VDgbY9Aw KKHxqjekAj60uO0rReOzYiK3 MGlu K8NlwdG4SODoiWHdXCqlJGK8 O65it0T0TYFwFLCcVLW7mQE6 bK0fnEcgwtzzpPCggEewmiOn dGlj OZbxOUyyQ034EVAdpTbvKeCd ZGluZyBEYXRlOiAgMTIvMjgv MjAyMzwvdGQ+FRYpAWR5mEcv PSAn vUUyFCxlZl5esHkycNizLY4l HTZsihocZCHmyC9sOZIjaWJw uHrjWC7dBOOzmdoug667SsSb MHB0 NNBnmXVzQ9UxsZ7nDiGmUSWo WAGyW5MpcRHrGLnhF358PMse CuB8KDEscuNpC2WtBLCubDip OiB0 p3Z5Te6Fr9DireynE2EhcGEt ZqGsIlbyVQl6L0OvKeuhmZB+ EA72XLZiTR42VLx3FFG9uCsx PSdi JEKbU2BvzZ3kGiAjFGMsRJSq Oyc+PHRhYmxlIHdpZHRoPScx YZWuIhSvxBoxOI7nXh4jEWHj LWNv sRwpjTTiZdGkg0svNRIyKEom CP4qgTjkV4NgzPC1NKDvk2x1 As80O09lH0TljEF+PGNvbCB3 aWR0 xI1dUsAhMrK8UBotC710AuKh rNSmYeqho5nbr7beeCf2ZjM9 IAFrpdQseSlrZZX7w0DsHa70 Y29s IHdpZHRoPSIxNSUiIHZhbGln wz9kwK2kEy8+DPCkkLM0hBB0 eI2rQeOwNwP8DPnyJ319YoCy cCIv Dcawc2nbi1nkhMr2QbErACEp iyGidVrjBWV7h4HsAa05V5Tw kEohl2JrDyn7iw66bJCah1R8 bGU9 H7UbPBRlonbubYXjlDmlLL6d XQTqwgezFQNxmO3uEMOtU8d7 TiWoUoU4HXxcD8BltkO0YVWv bGQg VPTnvGELwX4jljjuk4rgbsbf AjJhFBMkUDk8YMu2TZAnzNoi NxGgEQX8SpM2YQL8zVScoG2u bGln rfwtbG3uBhh+CQF2rAKjbXSG TX8sVokcuPD+SNTiWGP4cZyh BYndAXThhR8iKPSnC5d4PdGr LjA1 SUssT6UetvG2VNTirMXjYNCy kTYFcQ3irbuae1glmqtrAvVv JNWtFSt6SFn6DHCukTkfFqJy ZWZ0 BdT8LIR8jHMxhF4vyTxovmfi pF1bWkv+VewvzQrsEPI8EBg8 W1XeYeb2NWHlrKcsJM0xeAMl ZGlu Gz4pjJuyjTolDX3kEERczakb e392WqGpr6ghWHKlfARjTEtm CNX0K80wb0A8MWBiDAUwDGB8 dGV4 cA3edNpfeiwvhFYihJvjoxPw oPpsLWcrIWebQ722SEMhxUlh CsLxIYq9V6KbYzi9UHUkrJfc ZT0n yPFvLTdkJy5rwAtysKtaYE0b YQNhzhyln857WsTcd7ntUNSl iXJnDKiqQSJ0B73mf9B3QMNr MDAw TQP8fPV8hI1usGsmxakjqLOc oSdmnnMreQcuTXqoTPlaS519 RZSwtXjkHnVclNh5A2QcVws2 ZCBz yAopFL7nwERfNEfgRa0dqPwh wJftHB3fKRFoncoze324CjXf m5lzZHZesKTiXWltZTR9Z62e b3I6 YPTpDCLtMZT0tXW1nY3mrWmw bjogbGVmdDsgdmVydGljYWwt IRvpT000EEKgzOwrUfFezJet bnQg OInkSBa9P1GcVlnihXZ+PC90 YWSjDT71dQIjeBWgt5xfhNb0 GaAqHUWnKYQ8rEdrSCtgt5Fq ZXIt W06sqKKac4U8WSZlbIzonRPy GpKoeXQ2cM2fDVvwwfapl2gy qaodZmwmt0clwk14nZ84X03s IHdp FXVnCBAzIXKlGKSupZtfjo3j aJ7mUd9+BHOgkVY1vKF7uY1s BVHdFjI7YBbgC888SyNlqPBy Pjxj b6zcy7vbyVf2FbX8OGCfouGt kSpbWRK6p0CqFo36A73xBCyk JGJwURCwJSPaJDZcfXpfpj8f dG9w Ii8+ZFWmbIH9qCX9gE5lUjXh XqP4ANjbP047HxAatYVgYkxa B15cZ6JftQQ+SAJxJmp6OXXm dHls PA9idHJfXUeiEb2fPQO6WsIp LkRdPKytL7BkBFMkdbqhbkdy rSM8BTUfEQQqfR97Bv7sbKzs MTBw yWIKlS9wgaezy8avhkapVzPt COOwOUy3XTq9UVNbsTreUeLy NUE3JsY5RBD1rXBvrZ4zaYii bjog hZ1tW3ZsUBVszxvoCq87jX0l FhDlOcE7OJozSrm+RFVSSVZB C8ZlYGfZMuwxOFwLTQ13I7Kj Pjx0 TIOdyCmiCI4yjHTsEUbbIp5z rSfzlHycWN8tVDZpofyxGBHu uL4xQKFcjYOzxXloOS2sJGHw bjtm n816TjMqQZP8UELlxUFjN3Pm eX8wTxUwYZVwVHMhL4KydSTu TGfcV261YVdnQcX0WMEtluIj Y2Fs FYBmpObmGaK9l9G8Cg9wWG2v Pn9oMSR6ER16PS80mSQhv0Y1 nUJ5O0FeWFSrftyfpwfmuCY0 IDAu ABCxzM63fEPeFXlsJq5us1O8 g815BXJlQSWzyO44Zr7czCdr OAHkmDKOzA9tottsj3ymfkcs IzAw PMPyUKt7PYx5UOHizGvbYgWs CHC4NpH6BGS5pIBysS3vgWqa lerqzS9rFlo+NTYgWWVhcnM8 L3Rk Srb5GEPbgFnjQE8wdTQlRDlk Ol7jaIhniEavRM2jIARhpdde GTExhJ6lRNImfEQbkJmyLM6u NTBp ubsbv198VnJpEFV9GHBdySDs V5ZucU8zVrOhZRKdIMBrR8Af pLQgDHqdX111YZntXcT3MUTv cnRp I8FlWIJrfUhyWoB6q3W1Uh9Z TUzYZR09NM48lCMvu4D2xKR7 W9YpIIGhpankclyswKR8BYQb MDUw aS90hNQqLTejCo8du5K5i810 CZVyUQIgyG91Ig3sxZbsVPNa wPVVuU8jzkfai8rgrkxjJjVs MDAw KXd4WSm3FRWggOvyNdFsGXN5 QoG0HRI9zVVeuL7xlDhbcdvx mD3gYeg+M4A1eMI4eSPxfABx biBh IEJlZDwvdGQ+RB15ep23Y7Pp IjjdLpy6PHFbEWM4zQO6jT4s EOIcSUkdg5A8zUD4P3GmbcEx ci1j y6viRUDnHZpkO94kzQUub9U9 QXPlgGT6VVBuaNgzLdOfvL74 Oyc+IIFtrKycb3YtSbelf1hr d2lk hXb2PdVsXWYlbsFioXftNYH3 c7JvFg19H02iLVgsHBEuMRVj PNUtVKLqnFkzrg6fuL4qXs5+ PGNv uRE7kGT9aP0lCkLwJyW4DQkd L629DbBxcOPrOjomj4dzz1ud qTe1OxRdUTXzmkDadInjWCC9 b3Ai Rl09K9NfeInge4KoOep2km09 tPXrs9S8rDN8B4LlIDYtpaik oEXfhIxyQL6hGQBgwxlkTKUp aW5n QYTbH2q2CcFkZpC6DCkzU2Yd bwN7ZIHkaXRxYHLcoGQRpA9j givde0kceqseRgYlFJExYXr7 ZXh0 OEPyiBjaQjUaAYQ9HbW4NQI2 aGWwoH7mnUjgndqchE4iFad+ GKs1h5zevIKsCJ8biPH4KX37 ZD48 wYQjw0T0vBM5X0McPRYvxbog sstkxUQ9WANxTEBysS04Zl4o lQxiWr4pTYRyBWM4GEIkfXRk O2Nv bM1pBzTbXFChUPPbI5NfdHCr NNwyY144AGrbAgR3DJYhohJw D7MiYQBvxIavNnC7x2N2Gp6G SU46 UB12YA42hJQsg8D4uLL2C5Hb OKIzmxpjmlykkFP5NUHhLNZg iE93Pm4ujTkdTw5gVWNkJJD6 IFRp lLEwC8RlzR7sEaMnCRHzEPSo Y0WnoZGdXZczN207EVfyHoX4 FRXxhzAiT7FgTPGxzVyaGuZ1 b3A7 Xj5ASd45YL89EY23xRNye6K6 bYV8N3DzVFLovlptxhgzdEB7 IFPmYQUssH67Ym9spOwwRv8s ZCAx WFK2HJHlxZEiP9ZsaT1yCsWr KQJvFBBxT1YhtLGiWIvuX738 AYkoNsG7DPNrenWpE3CxAAJn aWdu EpX9k7W7Hl0YLAhxywi7S9Jf PjwvdHI+PT57QDTrBH20yUPu cLGba5xbkWh4HiRcIAZrAZW1 eWxl PSd (more content not included)... [facility] Coding Summaryon 09-15-2023 Coding Summary HTMLBase 64 QqkxuozcROw4tXl+PGhlYWQ+ VD5NBRZoD30lfRQjhZ9lC7WQ TElOSywgQVBQTElOSyIgbmFt UD4qqHWeEZIt IC8+TE4wILHzYmkxeTLpo6O4 uQW9O47gqj2aARmdnDE1JDDo EaGliouqe0oqlLt9ZRwhHgzi OyBt XHZcvJ16DYV5vN93Ud30oKNc yQZin2kdtLp8OhGzWIGiELL0 yMgiHUiyd3JjUAXdL03sgREl c2U6 BPGyiYzbbFDxYwKeyYI4yP0k BGgnoekux5biafrbVfc7th00 iWZes5E1oHG2L2VkbzC5WOZd bGQg PxwluWVEvN2dlffmb8lizeqx XlCsDKXvVIv3UOi3YWSbuTwi JnNmHR50HPD5KSIjzhQuP2Ou LWFs iJbhDzN3t8I1Yi4GU2ZZZecj Z7KPKGYDVHodiEA+VE82fm87 I8PqDujwAil2ONPeSMC6eZE0 aD0n VWTcDHgih7D6aTF0G9VyqpKw bv7wh0bkWYOsGLafK02dcZAy g8S9UMWukFK3ULFocJxxNrBt aG93 Oyc+MDDcoDlpc6OcPnnav1xm k7ywlGi2FvckWYVxduUloXvi VGL8a5ZtUd8oAZGnuDX6kSG8 aD0i VrTnDsJ3XQpgU597CtSxjUMe InsaV38yN4TfnGX+PHRyPjx0 NVCtpZfeVQ5aD3GoEOEkcwhx bGVm sZloYQ8eKCLtaovcKCFqtF3w JNFbM4u5TaTtMcL4JTtgN3Ur ZQYakdavHc61mO3uVsPtVlU7 MGlu A6LdxlO3KUMxgXOcNCxuYTR1 W46uo9D4ZUWmTWAhICM5lDU4 zJ4sySsoseepyODjjYanqsPb dGlj WUamGHglL853DFDduZliXuUg ZGluZyBEYXRlOiAgMTIvMjcv MjAyMzwvdGQ+TTWmOWY8vNgw PSAn cLPnMXcyYe2vzCkkmEisQD1a UAYetuiqLMHceZ8gIVDrnUHz eGgwVS7kXMZoesije010RqVs MHB0 ZKBcnUCvH1EleS3wTbFwRAFg KBJgW0AgpDMdQOhcP325GRqu RkM6MWQpxoIdE5OvEVKewJzl OiB0 i3P5Xi1Ze8YxlojsN0QtuJKu XjQbXokdHQs2B8VsMzdjuUZ+ PV66TWMvMK08ZKu0NMY8sIzj PSdi OAYvY0PqgG9qHnTeGRKqHIFp Oyc+PHRhYmxlIHdpZHRoPScx HUQnQlDocZxrOI5fLr3fCYVw LWNv hPulfUOlLbFtv9bvQMWuEBln FE5mwGpjQ2FqyFD9AAVxb7o1 Pc76V58nD4HwpZR+PGNvbCB3 aWR0 kV2uDmUeObT5LPhtY905CqIk lVYaIoiqy0cbq4cdaFd7KyA9 DDHkgjNslDqeLLM8n8MpGj26 Y29s IHdpZHRoPSIxNSUiIHZhbGln vw5evF0gWq4+AQWqmFZ6uPY9 qD3jLzEqSjJ3VVdpK224YkTl cCIv Npkzm8jdk0xqwCv1TvWsINBi heCqdKljBNR6s5UqTo52B2Rj aZgmu8EuPzw2ns55aIJvf9H0 bGU9 N8BsGXClddlpoVRlgYlgDB9r TRGhoubbXGDwzE3lORLoL0r9 XxUdDwK6XTdoF1UzmkC1AOQh bGQg HBLqfBFIuL0bysofx8qtiigc MxJjPEUxAEy0WCz9YQJwsDlw VgLiIRL3BcM0GNE4gBRplS3z bGln lovkoF8jSap+GEK0bNJixWLR RE9cVvietXO+UPFdZHE4cArj WXbqFHLlxN2aCSGrR9z1NeWr LjA1 SLzwW6ZcmyZ9NXReaDNiYRKd dWEKwG7jwxzxb1bowoaoInBs EFZjUTm2BGc1MSMplUpkMmYl ZWZ0 WlN4FAW7pOQvyE7isYpsdjsh iI6iKxw+PcpegBzlXAC6HGq7 D0CuJqu9BPVvqHtmLR6wuGIi ZGlu Sp2yuQzkkXigTU3rREBrzols c017EaPsn0cnOIQanKQpOVjl QTM5L57pn5Y3QBNzMGQfZHJ4 dGV4 yH8ltEyjlutpzQLlbDpdgjGv iIfmYUusDRihT323ZCBbaGba CiBkHSi4P5VqSjw9TPMrbGah ZT0n eVVqWGbyLa2baVlvmMxoOF0f RPNerjpzi088GoImw1ujFPFe lNCtKXceXII3B65hq1V6NYBe MDAw YLK5uHW8uY6thJgupylpkRGu tRojnyYutAqiXBdaVGlhU562 SGQwcDwqFhJpgKv5F7CyQlj7 ZCBz sZibJN1ynCIkJLpyNq3pxUck xIzyKM4cDQWufdwsk336SgBc b0wmCYPmdZEbDCazJIZ1J91o b3I6 XJHgBDYtPUX3gFI9fI2rcQpa bjogbGVmdDsgdmVydGljYWwt KLiiZ729UVVqzUckFwDhaBry bnQg GEtyBWt8Y9QsCwhqqJJ+PC90 TWKnZC72dMGjvCRqi8qpyOc1 ClNtQWVpSKY7pYlkGEiod7Kp ZXIt J75nwEFiz8F3QTJozFnikDSi IvLryFU3gO2oECgbjgttl8se odmaCmitd3hluf73jF92F22a IHdp PXIsLLSxCJLbLHUtgOdiqn3k hR0wWt8+YEJszIZ9oHX7fN8w ZYWdApA9QQydX047OzVwoDUw Pjxj e3dnu0owrPt5KiB5UEHrmmYy rFexHMV7f2IsCf86L81eTOho SHWpQVScJBFnMJTxyAomxa7e dG9w Ii8+XWDhtXU4hBD3lI2fXkKu PnA5PNdrH098YaTzfJZjYabd Z18aG7GgaLQ+NMJoMkg8YWFc dHls SN9uuSVxEGldYw6xVLK8CwFd YuVhLPcoL4LxFLJvntznptsi pIL0OVUtFNQvbL86Go3cxKgl MTBw eFSLpX6kbzdfb9sektwtSbJb IUKkXJs7BLm9FGTdiVrxMkZt YYW6PmZ0IWE8zORrjA5dcIds bjog jT5iP4JiCJBcnvnpDc01zO9i OkPkIoS4JUerEkw+RFVSSVZB F3TdMUsQEhgbYLrMFK47X4Mi Pjx0 UNPybGthYZ0flKIfXBenUf1y uGvhqWagEX5vYBVpnpbvNMPu nY4nCPXpwAPszPytKN5vUCDt bjtm n518TjRdMFK9EQQbzDEmU9Oo eB1hDaUaRZSiWUJiQ9EkaNQi ZMckU987CVzmCnB0CQMcqpPr Y2Fs CEAstPdmCjI5p3A8Jy8cWS1h Ss1xAEK7ON98ME12ePCth9U5 nOG3H2UbKWXlvxbwkswexSU6 IDAu KJBotU48nPZsXAvqMj1ec2U9 o426PQWxEWTcxK78Zt7wpUsm MSTvuSNMyE3vxpzau9hnpsmo IzAw SATkABw3OKw7MWKfjSoyTqHl KLD3EqK5RMO1bZCjpI0ahAlr zydvhX6sAcs+NTYgWWVhcnM8 L3Rk Cdu6WRNfsFkoKN5pvQPePLhs Sl7xwZaxuGtrNM8xUEIzdllv AQYxvK7pRSVnbORdhVywNR9o NTBp dpfkr030TcAbJPL8OSSglYTn D0EqlJ4xTkXpFACsNOYkC4Vv mTDbMJhqU121IAtoPaP6DPMt cnRp R3GwAJConGbuRiD4e1Z6Dd6C STmPRY34YK85lGCtu5G6oVO3 I7ZvSPBandbrctdvdKU7HDGz MDUw mQ38fJKhTHotZn8qr4F8p124 GMUiWGNchG59Gm9dnGemGNZn eAWJyS4emghxr3bibtybPcBu MDAw BJk6XVy6NIOrkUuiRsEdPKP2 JkP5RUJ5lCSvhZ6puQchwyxs hQ7pWom+U7M5H4IjFgqogWJ+ PC90 THJwDP66aWSehHAix6obiFa6 SwYkZDOjFDT4vJasGHiup2Ys EZUfG22whDAdj5U2FFBqvZij cHNl XsNcmJR3qW3fHKmjqolyu6wd juatBmuxo9dhnd47pI50N09v IHdpZHRoPSIzMCUiIHZhbGln bj0i qL8gAu4+VLFdhWH1oHH1kN0d SoUjAlX7AHouI041IvQojMEh Abtax4ico4armBq6PbGqHWJj dmFs mOzhPPF0n5VxAq91W84hVXtd AGKjIQSdSXBgUKYirRgitg0e dC4sGg1+WI8zb4qaxe46qU33 dHI+ PFPmCCP4qEjiZPbnJROwhK2v QQeiMbG4LOJjBeFtiP08aKPz NUziPs3boFhxeGhoVX0gRAZf bjtm l088MuOpu6deFZIotXRwVWqj EWX0V13ii7V1GMMzLGMwWPH0 yPR0eI1yhMszaagjbKMzyDhb dmVy dWopWCqcWSewW632WXMurRfz McVjlAWlT9uptdTJXH4wJpls dGQ+BMYfBBZ4oOlgOPbzGLMi aW5n KMUnZ0n8KwAlVtK5NBasC7Om wkE5CYSutAUkSONhmXMCkC2a zevtq9wbkqfqMgRaRBReWUc6 ZXh0 VGAenEybTkHaTLD4TyY2RGP9 kSZleI4qzPagbismqZ9yUsz+ RklOOjwvdGQ+CKXhGNS3wKwt PSdw DGJvwM7uVSDmC1e7JaIiFqE0 KFdgA7GpigS1BUCphYPkJZLy yQUJuN8mmvwlr5gnlqfbPgYk MDAw IVr9THa0OVBxeQwgDyPjKWT2 LwR2KYT8gEZedT0osImiswnv kA1jYau+TVJOOjwvdGQ+PHRk IHN0 bXkjHUhlGLPpxO6fBCDcQ6o2 UcLuImM2TTifM4NsaqF0BJBw nUReRCErgPCBqN5uqnlhl9wu cjog YhZsZUYuJVo9SHj6PXSrxJii WvGkCAR0QsM4HVG7mSXwqZ4q kNbndxijzK7wYlk+AXK9EAR0 PC90 JD09C1DwXkjgoKNafDA+PHRh YmxlIHdpZHRoPScxMDAlJyBz rFiwIV5tEh9qLQTzUGGloNuj cHNl OiB (more content not included)... [facility] Consent Formson 09-06-2023 Consent Forms [id number]#1.00OTG TIFF [facility] Stress Teston 09-06-2023 Stress Test [id number]#1.00OTG TIFF [facility] CV Stress ECGon 09-03-2023 CV Stress [...] reported separately. Jaskaran Tejeda MD JOB #: [id number] ul Final Dictated by: Jaskaran Tejeda MD Dictated DT/TM: 09/03/23 10:07 Signed (Electronic Signature): Jaskaran Tejeda MD 09/21/23 8:26 am Technologist: ADE [facility] NM Myocardial Spect Multi Re st/Stresson [...] MD, V. 09/03/23 11:43 a Technologist: TARAN [facility] Provider [place] 09-03-2023 Provider Orders [id number]#1.00OT [facility] Provider [place] 09-02-2023 Provider Orders [id number]#1.00OTGT IFF [facility] Provider Orders [id number]#1.00OT GTIFF [facility] Consent Formson 08-24-2023 Consent Forms [id number]#1.00OTGT [facility] Surgical Pathology Reporton 08-16-2023 Surgical Pathology Report (NOTE) [id number] [facility] CONSULTING PATHOLOGISTS [facility] ANATOMIC PATHOLOGY [address] [place] [id number] SURGICAL PATHOLOGY CONSULTATION Patient Name: GURVINDER CHAUDHRY MR#: [id number] Specimen #[id number] Procedures/Addenda MOLECULAR PATHOLOGY REPORT Date Ordered: 09/16/2023 Status: Signed Out Date Complete: 09/16/2023 By: Obie Marie M.D. Date Reported: 09/16/2023 INTERPRETATION AT THE REQUEST OF DR. MISSAEL TEJADA, BLOCK D1 WAS SENT TO [facility] FOR DECIPHER PROSTATE BIOPSY GENOMIC PSS DELIVERY PROFESSIONAL TESTING. THE RESULTS ARE FOLLOWS: GENOMIC RISK IS: LOW RISK OF METASTASIS WITH RT OR RP: 7 YEAR: 0.5% 10 YEAR: 1.1% RISK OF PROSTATE CANCER MORTALITY WITH RT OR RP: 17 YEAR: 1.2% RISK OF ADVERSE PATHOLOGY AT RP: 18.3% PLEASE SEE [facility]' COMPLETE REPORT ([id number]) FOR DETAILS. Case report, all slides and [...] second Pathologist who concurs with the diagnosis ([facility]). Riccardo Hutson Electronically Signed Out 08/19/2023 [...] racemase. Controls are adequate. Normal [facility] Standardon 07-15-2023 eGFR Non AA >60 Invalid Interpretation Code [facility] Comment on above: Performed By: #### 1 [id number], [id number], [id number], [id number], [id number], [id number] #### [facility] (DEFAULT) [address] [place] [address] eGFR AA >60 Invalid Interpretation Code [facility] Comment on above: Performed By: #### 1 [id number], [id number], 5508858, 5007145, 4568863, 7797462, 1565262 #### [facility] (DEFAULT) [address] [place] [address] Albumin [Mass/Vol] 4.5 g/dL Normal 3.5-5.0 [facility] Comment on above: Performed By: #### 1 [id number], 5805462, 3540072691, 2333412, 1432745, 3527607, 8111171, 4576152 #### [facility] (DEFAULT) [address] [place] [address] Alk Phos 44 IU/L Normal 32-91 [facility] Comment on above: Performed By: #### 1 [id number], 2425537, 1246756183, 0192349, 1233609, 2174882, 1104168, 4848116 #### [facility] (DEFAULT) [address] [place] [address] ALT [Catalytic activity/Vol] 35.0 U/L Normal 17.0-63.0 [facility] Comment on above: Performed By: #### 1 [id number], 3026549, 5871744252, 6165630, 5164076, 3302086, 1074318, 7141220 #### [facility] (DEFAULT) [address] [place] [address] AST [Catalytic activity/Vol] 35 U/L Normal 15-41 [facility] Comment on above: Performed By: #### 1 [id number], 5061608, 8353332942, 8367782, 4979405, 2964160, 1679733, 7938977 #### [facility] (DEFAULT) [address] [place] [address] Bili Total 0.7 mg/dL Normal 0.3-1.2 [facility] Comment on above: Performed By: #### 1 [id number], 3161012, 7091641176, 1419156, 7390219, 9651711, 6434463, 7629208 #### [facility] (DEFAULT) [address] [place] [address] Calcium [Mass/Vol] 9.4 mg/dL Normal 8.9-10.3 [facility] Comment on above: Performed By: #### 1 [id number], 8523454, 9466334544, 9618301, 7758900, 8239978, 2054133, 1437031 #### [facility] (DEFAULT) [address] [place] [address] Chloride [Moles/Vol] 102 mmol/L Normal 101-111 [facility] Comment on above: Performed By: #### 1 [id number], 9575285, 0440344052, 0603750, 7751583, 4104083, 3661338, 2083498 #### [facility] (DEFAULT) [address] [place] [address] 57044 CO2 [Moles/Vol] 30 mmol/L Normal 21-32 [facility] Comment on above: Performed By: #### 1 [id number], 5730857, 4393410558, 8479666, 2907990, 7993044, 7533936, 7518271 #### [facility] (DEFAULT) [address] [place] [address]1535 Creatinine [Mass/Vol] 1.15 mg/dL Normal 0.90-1.30 [facility] Comment on above: Performed By: #### 1 [id number], 5178603, 7222405029, 1845091, 2235313, 3727380, 1348167, 8299894 #### [facility] (DEFAULT) [address] [place] [address] 17073 Glucose [Mass/Vol] 88.0 mg/dL Normal 74.0-118.0 [facility] Comment on above: Performed By: #### 1 [id number], 8266573, 3138187368, 6425394, 0219975, 3675126, 3663879, 7651619 #### [facility] (DEFAULT) [address] [place] [address] 65117 Potassium [Moles/Vol] 4.1 mmol/L Normal 3.6-5.1 [facility] Comment on above: Performed By: #### 1 350496452, 3123075, 4229417680, 0773618, 2827282, 0598102, 4792524, 2131556 #### [facility] (DEFAULT) [address] [place] [address] 52765 Protein [Mass/Vol] 7.1 g/dL Normal 6.5-8.1 [facility] Comment on above: Performed By: #### 1 [id number], 0939529, 8317120348, 2192769, 2869529, 3958438, 6062127, 3418480 #### [facility] (DEFAULT) [address] [place] [address] 37338 Sodium [Moles/Vol] 140.0 mmol/L Normal 136.0-144.0 [facility] Comment on above: Performed By: #### 1 [id number], 7898814, 5273548482, 6463284, 6916209, 9008623, 2277357, 8986932 #### [facility] (DEFAULT) [address] [place] [address] 49946 Urea nitrogen [Mass/Vol] 25 mg/dL Normal 8-26 [facility] Comment on above: Performed By: #### 1 019950462, 8694004, 7257652454, 1692815, 7692996, 9174046, 0904166, 2541741 #### [facility] (DEFAULT) [address] [place] [address] 80967 Albumin/Globulin [Mass ratio] 1.7 {ratio} Normal 1.4-2.6 [facility] Comment on above: Performed By: #### 1 347184139, 0742749, 0438070184, 5911039, 3374428, 3175881, 4497870, 5203455 #### [facility] (DEFAULT) [address] [place] [address] 90856 Anion gap [Moles/Vol] 12.1 mmol/L Normal 5.0-19.0 [facility] Comment on above: Performed By: #### 1 160736478, 1416432, 6282890398, 3914479, 6380126, 2718872, 2347116, 6675683 #### [facility] (DEFAULT) [address] [place] [address] 88605 Globulin (S) [Mass/Vol] 2.6 g/dL Normal 1.5-4.3 [facility] Comment on above: Performed By: #### 1 [id number], 2575124, 7467438351, 0818931, 4387197, 6481612, 5827181, 8201584 #### [facility] (DEFAULT) [address] [place] [address] 45791 Osmolality 283 mOsm/L Invalid Interpretation Code [facility] Comment on above: Performed By: #### 1 112909436, 5672916, 6534896393, 7382260, 7536064, 1879570, 8431991, 0440925 #### [facility] (DEFAULT) [address] [place] [address] 12209 Urea nitrogen/Creatini ne [Mass ratio] 21.7 mg/mg High 4.6-16.2 [facility] Comment on above: Performed By: #### 1 571885660, 4378873, 4527102312, 8482180, 0296906, 5484267, 1071988, 8036045 #### [facility] (DEFAULT) [address] [place] [address] 41512 GGTon 07-15-2023 Gamma glutamyl transferase [Catalytic activity/Vol] 22.0 U/L Normal 7.0-50.0 [facility] Comment on above: Performed By: #### 1 [id number], 3875822, 7664704471, 9973768, 8850758, 7899276, 3678288, 7801249 #### [facility] (DEFAULT) [address] [place] [address] 66379 Iron Levelon 07-15-2023 Iron [Mass/Vol] 114.0 ug/dL Normal 45.0-182.0 [facility] Comment on above: Performed By: #### 1 955350763, 0113496, 9673969358, 4210776, 3516258, 8891930, 2120031, 4319200 #### [facility] (DEFAULT) [address] [place] [address] 07458 LDHon 07-15-2023 LDH 257.0 IU/L High 98.0-192.0 [facility] Comment on above: Performed By: #### 1 584735910, 2031948, 8297592122, 8996076, 4566031, 3029477, 3069306, 8977928 #### [facility] (DEFAULT) [address] [place] [address] 95124 Lipid Panel Standardon 07-15 Cholesterol [Mass/Vol] 188.0 mg/dL Normal 66.0-200.0 [facility] Comment on above: Performed By: #### 1 [id number], 9417607, 2116895635, 4518159, 6836030, 0613505, 8993853, 5258417 #### [facility] (DEFAULT) [address] [place] [address] 00394 Cholesterol in HDL [Mass/Vol] 45 mg/dL Normal 40-71 [facility] Comment on above: Performed By: #### 1 569600199, 8025174, 3021754026, 8844729, 5572346, 8703335, 2948163, 4957227 #### [facility] (DEFAULT) [address] [place] [address] 79830 Triglyceride [Mass/Vol] 130.0 mg/dL Normal 0.0-150.0 [facility] Comment on above: Performed By: #### 1 [id number], 2560930, 0340435840, 9464490, 2369449, 3838164, 9554941, 9555383 #### [facility] (DEFAULT) [address] [place] [address] 09853 Cholesterol in LDL [Mass/Vol] 117 mg/dL High 1-100 [facility] Comment on above: Performed By: #### 1 [id number], 8938144, 7432944326, 0854505, 6596183, 2492327, 2929192, 7480826 #### [facility] (DEFAULT) [address] [place] [address] 00432 Cholesterol.total /Cholesterol in HDL [Mass ratio] 4.1 {ratio} Normal 0.0-4.5 [facility] Comment on above: Performed By: #### 1 276738692, 9358766, 4519409762, 9757935, 3360013, 6519265, 5681211, 2569458 #### [facility] (DEFAULT) [address] [place] [address] VLDL. 26 mg/dL Normal 5-40 [facility] Comment on above: Performed By: #### 1 143202118, 1984838, 5690508578, 3830966, 4639789, 1073612, 3704213, 7385467 #### [facility] (DEFAULT) [address] [place] [address] PSA Screenon 07-15-2023 PSA Screen 5.97 ng/mL High 0.00-4.00 [facility] Comment on above: Result Comment: [employer] Clinical System (Chemiluminescence) Values obtained with different assay methods or kits cannot be used interchangeably. Results cannot be interpreted as absolute evidence of the presence or absence of malignant disease. Performed By: #### 1 061474993, 8401862, 7500108699, 0674180, 0852703, 2930666, 5864257, 9983035 #### [facility] (DEFAULT) [address] [place] [address] 23948 Phoson 07-15-2023 Phosphate [Mass/Vol] 3.2 mg/dL Normal 2.5-4.6 [facility] Comment on above: Performed By: #### 1 463578424, 1053672, 5437929662, 0144789, 5062593, 3746481, 1311486, 4644201 #### [facility] (DEFAULT) [address] [place] [address] 77787 Uric Acidon 07-15-2023 Urate [Mass/Vol] 6.0 mg/dL Normal 4.8-8.7 [facility] Comment on above: Performed By: #### 1 [id number], 7655264, 5301306282, 5945441, 6338037, 1250000, 0099989, 8699267 #### [facility] (DEFAULT) [address] [place] [address] 11958 Encounters Encounter Date Encounter Type Care Provider Facility Start: 09-03-2023 End: 09-08-2023 ambulatory [facility] Start: 09-02-2023 End: 09-03-2023 ambulatory Eli Santos Facility:[facility] Start: 08-16-2023 End: 08-16-2023 ambulatory MISSAEL TEJADA [facility] Start: 07-20-2023 End: 07-21-2023 ambulatory [place] Ch Facility:[facility] Start: 12-01-2022 ambulatory JAIR CARPENTER Facilit y:H1 Start: 07-16-2022 ambulatory ROS CM Faci lity:H1 Start: 01-28-2022 ambulatory ROS CM Faci lity:H1 Start: 08-28-2017 End: 08-28-2017 Emergency department patient visit [facility] Erin CH [facility] Start: 03-02-2017 End: 03-03-2017 Ambulatory DEFAULT PHYSICIAN Facility:[facility] Payers Date Payer Category Payer Unknown [id number] 1965 Unknown [id number] 2.16.84 [id number] 1965 Unknown [id number] 2.16.84 [id number] 1967 Unknown [id number] 2.16.84 [id number] 1967 Unknown [id number] 2.16.8 [id number] 1967 Unknown [id number] 2.16.8 [id number] 1967 Unknown [id number] 2.16.8 [id number] 1959 Unknown [id number] Unknown Summary Purpose Family History No Family [...] section and content) DATE CREATED AUTHOR 03/15/2018 [facility] DATE CREATED AUTHOR AUTHOR'S ORGANIZ ATION 03/16/2018 [facility] DATE CREATED AUTHOR AUTHOR'S ORGANIZ ATION 11/28/2022 [facility] DATE CREATED AUTHOR AUTHOR'S ORGANIZ ATION 09/17/2023 [facility] DATE CREATED AUTHOR AUTHOR'S ORGANIZ ATION 09/21/2023 [facility] FOR RECORDS PERTAINING TO PATIENTS WHO [...] BE BASED ON THE PRIMARY CLINICAL RECORDS. [facility]. provides no warranty or guarantee of the accuracy or completeness of information in this document.
== END 2024-03-14 10:28 | disposition home or self-care (01) ==
LOC: EC 10:28
PROVIDERS: PCP Family Medicine; Visit Provider Podiatrist Foot & Ankle Surgery
DX: M25.571 Pain in right ankle and joints of right foot (principal); Z96.661 Presence of right artificial ankle joint
CPT/HCPCS: 73610

== ENCOUNTER 2024-05-10 09:03 | Outpatient (OUT) | payer OTHER, SELFPAY ==
--- NOTE | 2024-05-10 | XR_ITS ---
The [address] [address] Patient Name: GURVINDER CHAUDHRY MRN: [id number] date: 1965 Sex: M Assigned Patient Location: Current Patient Location: Accession/Order Number: [id number] Exam Date: 05/10/2024 09:04 Report Date: 05/11/2024 06:20 At the request of: RSO CM Procedure: XR ankle RT min 3V PROCEDURE: XR ankle RT min 3V HISTORY: RIGHT ANKLE PAIN COMPARISON: XR ankle right 03/14/2024 FINDINGS: BONES:Prior prosthetic replacement of the talus. No appreciable hardware fracture or change in alignment. No bone fracture dislocation. SOFT TISSUES:Soft tissue swelling surrounding the ankle. EFFUSION:None visible. OTHER: Negative. XR/XR ankle RT min 3V IMPRESSION: 1. Stable surgical changes without evidence of hardware failure or change in alignment. Electronically authenticated by: SHERI ALEXANDRA Date: 05/11/2024 06:20
== END 2024-05-10 09:04 | disposition home or self-care (01) ==
LOC: EC 09:03
PROVIDERS: PCP Family Medicine; Visit Provider Podiatrist Foot & Ankle Surgery
DX: M25.571 Pain in right ankle and joints of right foot (principal); Z96.661 Presence of right artificial ankle joint
CPT/HCPCS: 73610

== ENCOUNTER 2024-09-05 15:42 | Outpatient (OUT) | payer OTHER, SELFPAY ==
--- NOTE | 2024-09-05 | XR_ITS ---
The [address] [address] Patient Name: GURVINDER CHAUDHRY MRN: [id number] date: 1965 Sex: M Assigned Patient Location: [facility] Current Patient Location: Accession/Order Number: [id number] Exam Date: 09/05/2024 15:44 Report Date: 09/06/2024 13:44 At the request of: ROS CM Procedure: XR ankle RT min 3V PROCEDURE: XR ankle RT min 3V HISTORY: RIGHT ANKLE PAIN COMPARISON: XR ankle right 05/10/2024 FINDINGS: BONES:Prosthetic replacement of the talus. No hardware fracture or loosening. No bone fracture dislocation. SOFT TISSUES:Mild soft tissue swelling surrounding the ankle. EFFUSION:None visible. OTHER: Negative. XR/XR ankle RT min 3V IMPRESSION: 1. Stable surgical changes without evidence of hardware failure or change in alignment. Electronically authenticated by: SHERI ALEXANDRA Date: 09/06/2024 13:44
--- OUTSIDE RECORDS SUMMARY | 2024-09-05 15:50 | XMS_ITS | CCD ---
Author Organization [facility] Care Team Providers Care Hvac Installation Technician Name Role Phone DEV PERLA Unavailable Unavailable QUIN ROBISON Unavailable Unavailabl e PHYSICIAN, DEFAULT Unavailable Unavailable PHYSICIAN, DEFAULT Unavailable Unavailable DEV PERLA Unavailable Unavailable ROS CM Admitting Unavailable ROS CM Attending Unavailable ROS CM Consulting Unavailable ROS CM Admitting Unavailable ROS CM Attending Unavailable JAIR CARPENTER Admitting Unavailable JAIR CARPENTER Attending Unavailable ALFONSO SCHAEFER Admitting Unavailable ALFONSO SCHAEFER Attending Unavailable DEV PERLA Primary Care Unavailable Dev Perla MD Primary Care Provider Dev Perla Primary Care Unavailable Eismagdy, Eli Attending Unavailable Radha, Eli Admitting Unavailable Dev Perla Primary Care Unavailable Alfonso Schaefer Attending Unavailable Alfonso Schaefer Admitting Unavailable Dev Perla Primary Care Unavailable Alfonso Schaefer Attending Unavailable Alfonso Schaefer Admitting Unavailable Dev Perla Primary Care Unavailable Eisenstein, Eli Attending Unavailable Eisenstein, Eli Admitting Unavailable Daysi Silva PA-C Admitting Unavailable Dev Perla Primary Care Unavailable Shira BOURGEOIS Daysi E Attending Unavailable Dev Perla Primary Care Unavailable Janine Israel Attending Unavail able Janine Israel Admitting Unavail able Dev Perla Primary Care Unavailable LindyJanine cuadra Admitting Unavail able Dev Perla Primary Care Unavailable LindyJanine cuadra Attending Unavail able JANINE ISRAEL Attending Unavailable RADHA, ELI Referring Unavailable JANINE ISRAEL Attending Unavailable DUSTIN ZUNIGA Attending Unavailable DUSTIN ZUNIGA Attending Unavailable DUSTIN ZUNIGA Attending Unavailable Allergies Allergy Classification Reported Allergen(s) Allergy Type Date of Onset Reaction(s) Facility (3 sources) cephalexin; Translations: [Keflex] Drug Allergy 09-20-2009 [facility] Repository (12 sources) Cephalexin Drug Allergy 2000 Hives [facility] Medications Current Medications Medication Drug Class(es) Dates Sig (Normalized) Sig (Original) acetaminophen 325 mg / HYDROcodone bitartrate 5 mg oral tablet (2 sources) Opioid Agonist Start: 07-23-2024 End: 07-26-2024 take 1 tablet by mouth every six hours for pain HYDROcodone-aceta minophen (Tina) 5-325 MG tablet Indications: S/P carpal tunnel release Take 1 tablet by mouth every 6 (six) hours if needed for severe pain for up to 3 days 12 tablet 07/23/2024 07/26/2024 Active Start: 07-07-2024 End: 07-10-2024 take 1 tablet by mouth every six hours for pain HYDROcodone-acetaminophen (Tina) 5-325 MG tablet Indications: Post-operative pain Take 1 tablet by mouth every 6 (six) hours if needed for severe pain for up to 3 days 12 tablet 07/07/2024 07/10/2024 Active allopurinol 100 mg oral tablet (12 sources) Xanthine Oxidase Inhibitor allopurinol (Zyloprim) 100 MG tablet Active cholecalciferol 0.025 mg oral capsule (12 sources) Vitamin D Start: 2022 take 1 capsule by mouth once daily cholecalciferol (Vitamin D-3) 25 MCG (1000 UT) capsule TAKE 1 CAPSULE (125 MCG) ORALLY DAILY FOR 90 DAYS 09/10/2023 Active hydroCHLOROthiazide 25 mg / lisinopril 20 mg oral tablet (12 sources) Thiazide Diuretic, Angiotensin Converting Enzyme Inhibitor Start: 2023 take 1 tablet by mouth once daily lisinopril-hydroCHLOR Othiazide 20-25 MG tablet Take 1 tablet by mouth Daily 03/13/2024 Active meloxicam 15 mg oral tablet (12 sources) Nonsteroidal Anti-inflammatory Drug Start: 2023 meloxicam (Mobic) 15 MG tablet 02/29/2024 Active 24 hr metoprolol succinate 50 mg extended release oral tablet (12 sources) beta-Adrenergic Oswaldo Start: 2023 take 1 tablet by mouth once daily metoprolol succinate XL (Toprol-XL) 50 MG 24 hr tablet Take 50 mg by mouth Daily 03/21/2024 Active pitavastatin calcium 4 mg oral tablet (12 sources) HMG-CoA Reductase Inhibitor Pitavastatin Calcium (Livalo) 4 MG tablet Active traMADol hydrochloride 50 mg oral tablet (12 sources) Opioid Agonist Start: 2023 traMADol (Ultram) 50 MG tablet 02/23/2024 Active Problems Active Problems Problem Classification Problem Date Documented Date Episodic/Chronic Essential hypertension (12 sources) Hypertensive disorder; Translations: [Essential (primary) hypertension] Onset: 05-17-2024 05-17-2024 Chronic Other connective tissue disease (12 sources) History of arthroplasty of right ankle; Translations: [Presence of right artificial ankle joint] Onset: 09-10-2023 05-17-2024 Chronic Other nervous system disorders (2 sources) Carpal tunnel syndrome of right wrist; Translations: [Carpal tunnel syndrome, right upper limb] 07-20-2024 Chronic Other nervous system disorders (1 source) Postoperative pain ; Translations: [Other acute postprocedural pain] 07-07-2024 Episodic Other non-traumatic joint disorders (4 sources) Pain of right wrist; Translations: [Pain in right wrist] 07-20-2024 Episodic Other non-traumatic joint disorders (2 sources) Pain of left wrist; Translations: [Pain in left wrist] 08-28-2024 Episodic Other screening for suspected conditions (not mental disorders or infectious disease) (1 source) Elevated prostate specific antigen [PSA]; Translations: [Elevated prostate specific antigen (PSA)] Onset: 08-16-2023 Episodic Past or Other Problems Problem Classification Problem Date Documented Da te Episodic/Chronic Calculus of urinary tract (12 sources) Kidney stone; Translations: [Calculus of kidney] Onset: 05-17-2024 05-17-2024 Episodic Headache, including migraine (1 source) Headache; Translations: [Headache] Onset: 08-28-2017 Episodic Results Test Name Value Interpretation Reference Range Facility Coding Summaryon 07-30-2024 Coding Summary HTMLBase 64 EbunccfaBQi3fMi+PGhlYWQ +[id number] NMTElOSywgQVBQTElOSyIgb sMaWL9uxOToIMGw IC8+QV9bPCPpVcknpMDzd1P 8jIX9P60sbb2iCYoimFR4WJ HgLoBigtyjo3chyPg9WEofW mluOyBt GDSnwO01EUV5fH09Au06kDL yoSPja0vhyGb1MoHaNOAkIO S7kJknLOvrx9IcRAZzP65rk QPjt5W9 VERvcAhbaJJdHoQkxLT0zB0 pESbszkanc6dpccyfIlp0so 39qAAdt7V4oGU2F4OqjqK5G GJvbGQg ZfbduBRLeH9bxyisi3gdvdc fZvHtVSHcVVm3QFm3OTBbrU gfFiWtGG81JNQ0PLIvpcBtY 2FsLWFs tOjcQxA0i8Q2Pc7IR5TVDwi nD0NWUSCEGVwmvXW+PC90cj 57U5YoXxdmZla4CHCySGE5v JF8oC0e MXEePZuyi9C2dXK8P1PrrmC azj2uo9xmIQMbEXvgW26bcX Iuc0W9SCTabYV4MDGzvOgxD iBzaG93 Oyc+PJPsoHnqw3AdNaipj9r zt6zmePv1RapnVATiczJicG kxORS5e6UvNt4yXVBxuOB5z WE4zW3q DuQaKcD6BZiuZ145OgOzyHT uVyzbY43wO6BzkBP+PHRyPj c6LFOdwOzjVY9aN6IpEJSan mctbGVm qCobTM5hRIFutwkmKFDlvO0 jMUWuL9q8JaOaBrM9JIqlO0 FrAKWxoszcEp45lT2uGhHbY rK8HByd O1CfhtB8XUNzrCAoBYisRAO 2K90su4X0ACRwIZIhXQR7kI J5cV0heRpujzrdsJLfbQavx mVydGlj QOqcTGmcH651IIQjvSliZlL vZGluZyBEYXRlOiAgMTEvMT AvMjAyNDwvdGQ+LENuYVL8f WxlPSAn yASbPMmiMc0xbWudbDhkXD2 sEEVjzxvlZRNajM6oPFBtkT AemLzbYQ4nNAXnifkeg050A iAxMHB0 RDUqkZOyU9JyoH6kZnDeYNH tWDWtT3NmlPVsUZiqI813JM hoTuZ5YPHvahRzH6PlPVWic WduOiB0 f8R1Qx2Mj5WnuqnaX8BxjEI qJoYmTuklRCw8N7WqIhuysF I+AP48SHWzPI99HNr4XPN3f WxlPSdi MVIgV4YdxL7qJqUcHKXyPWO kOyc+PHRhYmxlIHdpZHRoPS pmPXPrVhMrgHylQW3aIg8mB GVyLWNv iZnprZPpQrHwk4fcQPBhGYa xBS0zyItpS6WtqSX8XKQoi9 q9Uk78P58uZ6OmpCO+PGNvb FB9wWG4 yR0lNgFxPrP5BTznN936VtR szGDoHeprh9yfq6ofyBb9Rw L1JQVyibRecHavLID4f3WvR x61C33w IHdpZHRoPSIxNSUiIHZhbGl nxg8wgI1mNj3+PWPqkIM8yV G6uM2cNnLuLwV0MWyrS709X nRvcCIv Teoys1sgx6alvUa2MyMyXWI vzpQroYpdWWA2i6NyMj05V2 VpgHldu3ImJud0zd44aKUel 5E2fJT4 M6UxQXIovlasaCGetZzcXA9 dYAMvxjufOLRfiO9yOWLmD6 z7EjHkKpG6KCooP9JidsD0X GJvbGQg GDGcbNLKrE4tjrrbx8gapzb wNtJqCMYmIPd9HDk8IXBhuQ ffInTqCBV9VpS5LNM8eTLpx V5ohVvr vrdpmK2jNon+SEY6pLGanAM XIM5lOptrhPF+EARaGMC5yE asVLmwWADpsQ0vAEVoX0v8U iAwLjA1 JOxuZ0SgpaH2VMMjwOUaLIS wjVWJlK1xmfplp6ezahhkVc IqACBxOVy4DFd6CGWltTvuA iBsZWZ0 CsW7IQA2xXGdfF5coZsrqlh mjW4nFhe+GkcopUiiOUQ4JS z3V5HfBdk4GHXqwKobSS9rb GFkZGlu Hw7jzGxbvGzrHB3kGFKzmjb er681FgYli2bxSJUgoGEcFK mmJCX6K44wp0G4HWQdCPZmD DE7qLE1 jQ5wiJmzpncelPNrtBojiyK wwNkkOVyxVCfrE325ODXkpT raIqSxMKk7A4SjCnh6YNHsg HylOO8w gZMwGDeyYa0xwKwvtVzbHL1 vXOYljzcwl735FaXkj1egVI TfzUZrQXyhDEC2W78zl5H9E CMwMDAw NAR8hBL7kW0kkTsiraatfMM mdDsgdmVydGljYWwtYWxpZ2 21YISvzDjxJqIfkRf4Q4YlN zx0QKLw xIqfKH9keBAjYThiVy3wzNi nhGsgUA4mDROphqzqs317Ce Zfu9sxELQarEEfCVsfTYZ6N 35pc9C1 GGFsXIXpFBO4qQT8sI3dtRt nbjogbGVmdDsgdmVydGljYW ioSYupK728YEPpjPtlAwZho GllbnQg PZgxPUh4L4OwUemnrBL+PC9 2GUYhQQ69yZPsiKGiy5frrB g8AlZnSXSgTUD9sOsvXJhzp 3JkZXIt M21xoTLtd1H8VWVdiJwreTX nZqLksKJ5uA6bNQfleytmv7 cymjeaHwvkm8qmek24mN98R 29sIHdp ZHRoPSIzMCUiIHZhbGlnbj0 tnC0yCj6+JKQkhGE7iYC0hG 4jPQArBjB2FUcbA907YrRfa CIvPjxj u1sih7oanZs4EdD0IIZxqaJ roArmVJX9t2QtYc71N93bTI dpZHRoPSIyMCUiIHZhbGlnb u3vbG4o Ii8+BKCrkDV9zHQ3uY2gIiD jRcZ8OPrrT805LfZoeFYyNu ntB14hM7KbrKL+LNUmQpb4W CBzdHls JF0vdRDlXHerDh4fMVN0NgZ vDtOiSAsyE6EcPUNvioxyxb uanNU6UIClHBAwnR62Ju5zw DogMTBw cWBOeE2fzurpb4sayhiuWdK bWPRiZWu1VBu2WYKnfPjsXo SvLNX8RpZ5HFZ2qLWmgB3jp Glnbjog eX2pO1XlSHBhccyrRz66zV9 jXoGzPzF8AIpfCna+RFVSSV EYL3HnPNfLZshfQZlSSG10U 6JsDwd6 AIBzkApdTR3tqRCyBIakZk5 kfHhmeLhpRL4aXROmvkeoHS ZigQ7tFVBnpFNqjBkjEG8yN TBpbjtm y715IwJnUCE0ABZiyAOeZ2D oeB5tPkNbKSHyKWBfN3MloX LuTEekX772GIstJvJ8PCLdk vOsK7Ap EIUpeUghCmU5n7I6Pz8eRA1 hYn9pMRL2UO65RY05pTRhv8 Z1pJQ3N2JvWRTjsovbfbzxn NE7PUNw GELksM61dMOkJZnpZw2dm3T 3q193CIKaCILkfK22Id7muK yeXWLcbVQKvR3ixjxqw0wau jogIzAw VCYtUFv9IGy6VBGsdKxlHdS hGOB1AnW7IJV4wFPesC6pxZ nqpmajkV2cCyq+NTcgWWVhc eF2L0Pj Vma8CTNliPgpRI4udNAjULm nAe6sjZuycAmwHH5uMKKqig cjGVHknO7tHJJngCFumXarC R6eWPSy qdgpt366SkCmUWD9CCEbwNB qS7AcgX7eHvIoVTQlGEUsJ8 IuqMMqTNssR449YYjnKpY0U HZlcnRp L9DkHHUbzUlmNdE5k1H8Og1 TRJcMIY77CH23qQLzm6J3oG C7X8MiEHTbhqgblbshdMN3H DAuMDUw eQ66dAGeROfiVa5kq6V1e59 5XSMiFFHltE66Ue2eaIzwFB PhzASEcF9blwxxr8iuqlapJ zAwMDAw CRh2EPg4YFAkaYdsNuNoYLT 5KoH2HOF5cSWquJ2ueBqzdv unvJ4aFqj+ODI4BKK6wqkiu sc7U3Fd PjwvdHI+WF18QKZeYV33sCG gjEHsa0tvcXj2LnVzZIUiYK D9cGnqMYavg5TsAXLpQ00mp KCue0Y1 LBEasIonfGSeBeCmrTW4zF9 pOQoepjlak3ydgqnaJpcqt1 xulp89rW85N34fYQcmUNJuU SIzMCUi VBMfjQnsqw1irY8yBh8+PGN wcAX0vDB0vP3oQjFwHsY7CS jiA002IwRkgRMuFyvmm3idb 3chmUs0 PqWaUIQgzwQbxYfyMBR0m1Y qYy42L82eBQkhEMRqKTPcBN OkYZCizCgjwm6ceM5rVy3+P B7xf6dg fe91cR30dGZ+GHZaKDM7vNf zFUtpUTFefR4aUDuySiG2AK NcGtIvtX54xANoHDcwQw1oh WdodDog JX1tFQTnmmkpr178VlMgb4o vZDVsgVQuKJyzTXH9C01xj3 U5TATnBJWoYFR2kSD6xP7pn Glnbjog bGVmdDsgdmVydGljYWwtYWx lV741BDDokSotXfKyzUSrS1 wzpnQQSG8xOqwlsTO+PHRkI HR9kBjd FRiaXHDxxR9eQYZtY2h3MoG tBdN8FJrcQ2MdimM9OGXynO JhBBCdqGYQrE4uoybcy5euh jogIzAw VZXaYUf9WZt6ECTnqTpvIbF zQLA6LpB8JSU8dULucM8pbW kckjvpcP9yImp+RklOOjwvd GQ+PHRk ZYS1cPslQMqsWSBycL3eLWC cL4s5QlXgDsE7XPvjY5Gino R8SZKbeSSnYXTqfZVGlA3mx zaco4kj pypkCpInGRRnQUf5XTe2DSG dsOkoWaCvOOF6UoB3EBU6tU FmiL3zzLlsgnwhkE7jWxg+T VJOOjwv dGQ+HQXhHXN9zUxgJZpnDRQ zaH6vTOYzD2k8WcVwHfV6CX huO9QlgkE2NNDjgTBoUONjh YPNaT6u fizkz4hgblxeTzPpTHDaRDi 9OEy5JVDquAnrKdWxVWH1Dv P0UJF3aCOuaC8zwZcehvyfx G9wOyc+ HEN3KKY9TP03HF93O5IjZoz vdGFibGU+PHRhYmxlIHdpZH LhXNusVUTzQaXloDtfKY4zO j6jKAIh LWN (more content not included)... [facility] Consent Formson 07-25-2024 Consent Forms [id number] TGTIFF [facility] Discharge Instructionson Discharge Instructions [id number] GTIFF [facility] Inpatient Patient Summaryon 07-24-2024 [place] [address] Patient Discharge Instructions Name: LAURAGURVINDER VÁSQUEZ JOSE ARMANDO : 1965 Patient Address: [address] [place] [address] Primary Care Provider: Name: Dev Perla DO After you are discharged if you find you have any questions, please, call [phone] ext [phone] to speak to a nurse. Discharge Diagnosis: Carpal tunnel syndrome, right Prescription Information: If you have been given a prescription for narcotics, seek immediate medical attention if you have any difficulty breathing or any sudden status changes such as confusion and sleepiness. If you or anyone you know is experiencing suicidal thoughts, mental health, alcohol and/or drug addiction problems; contact the [facility] 12/04 Crisis Hotline -Text 4HTKP yb 735745. If you received any narcotics, sedation, or any other medication that causes drowsiness for the next 24 hours, unless otherwise directed: ? Do not drive a car. ? Do not operate machinery such as power tools, lawn mowers, drills, sewing machines, or stoves ? Avoid alcoholic beverages and drugs for allergies, nerves, or sleep ? Do not make important personal or business decisions or sign any legal documents [facility] would like to thank you for allowing us to assist you with your healthcare needs. The following includes patient education materials and information regarding your injury/illness. GURVINDER BLACKBURN has been given the following list of follow-up instructions, prescriptions, and patient education materials: Follow-up Instructions With: Address: When: Dustin Zuniga [address] [place] [id number] [facility] (1) 08/03/2024 2:30 PM Medications During the course of your visit, your medication list was updated with the most current information. The details of those changes are reflected below: Medications to Continue That Have Not Changed Other Medications allopurinol (allopurinol 100 mg oral tablet) 1 tab(s) Oral (given by mouth) every day. aspirin (aspirin 81 mg oral tablet) 1 tab(s) Oral (given by mouth) every day. cholecalciferol (Vitamin D3) 7,500 unit(s) Oral (given by mouth) every day. hydrochlorothiazide-lis inopril (hydrochlorothiazide-li sinopril 25 mg-20 mg oral tablet) 1 tab(s) Oral (given by mouth) every day. meloxicam (meloxicam 15 mg oral tablet) 1 tab(s) Oral (given by mouth) every day. metoprolol (metoprolol succinate 50 mg oral tablet, extended release) 1 tab(s) Oral (given by mouth) every day. pitavastatin (Livalo 4 mg oral tablet) 1 tab(s) Oral (given by mouth) every day. It is important to always keep an active list of medications available so that you can share with other providers and manage your medications appropriately. As an additional courtesy, we are also providing you with your final active medications list that you can keep with you. allopurinol (allopurinol 100 mg oral tablet) 1 tab(s) Oral (given by mouth) every day. aspirin (aspirin 81 mg oral tablet) 1 tab(s) Oral (given by mouth) every day. cholecalciferol (Vitamin D3) 7,500 unit(s) Oral (given by mouth) every day. hydrochlorothiazide-lis inopril (hydrochlorothiazide-li sinopril 25 mg-20 mg oral tablet) 1 tab(s) Oral (given by mouth) every day. meloxicam (meloxicam 15 mg oral tablet) 1 tab(s) Oral (given by mouth) every day. metoprolol (metoprolol succinate 50 mg oral tablet, extended release) 1 tab(s) Oral (given by mouth) every day. pitavastatin (Livalo 4 mg oral tablet) 1 tab(s) Oral (given by mouth) every day. Take only the medications listed above. Contact your doctor prior to taking any medications not on this list. Diet & Activity Patient Activity Level: Patient Diet: Patient Activity Restrictions: Comment: Patient education materials, if any, will display below DR. ISRAEL'S POST OPERATIVE CARPAL TUNNEL INSTRUCTIONS: SURGEON'S WRITTEN INSTRUCTIONS: 1. Keep your hand elevated above your elbow for the first 24 hours after surgery. 2. Wiggle your fingers frequently while awake. 3. DO NOT lift heavy objects or promos executive producer forcefully with your hand. 4. Change your dressing in 1 day and apply an janet bandage as directed with the thumb tucked towards the palm of your hand. This keeps the tension off your incision. 5. You may shower in 1 day but do not submerge your hand under water. Put a 4x4 gauze and the janet bandage back on after you shower. 6. If you have any problems or concerns, please call the office at [phone]. 7. Follow up as scheduled. Viruses or Bacteria What?s got you sick? Antibiotics only treat bacterial infections. Viral illnesses cannot be treated with antibiotics. When an antibiotic is not prescribed, ask your healthcare professional for tips on how to relieve symptoms and feel better. Usual Cause Illness Viruses Bacteria Antibiotic Needed (more content not included)... Normal [facility] MAGR Intraoperative Recordon 07-24-2024 MAGR Intraoperative Record MAGR Intra-Op Record Summary Primary Physician: Janine Israel DO Finalized Date/Time: 07/24/24 13:50:08 Pt. Name: GURVINDER BLACKBURN/Sex: 1965 MALE Med Rec #: [id number] Physician: Janine Irsael DO Financial #: [id number] Pt. Type: D Room/Bed: / Admit/Disch: 07/24/24 12:51:27 - Institution: Case Times MAGR Entry 1 Patient In Room Time 07/24/24 13:22:00 Out Room Time 07/24/24 13:50:00 Anesthesia Start Time 07/24/24 13:29:00 Stop Time 07/24/24 13:47:00 Surgery Start Time 07/24/24 13:29:00 Stop Time 07/24/24 13:47:00 Last Modified By: Marybeth Baker RN 07/24/24 13:48:35 Case Attendance MAGR Entry 1 Entry 2 Entry 3 Case Attendee Janine Israel Debra RN McMurray, Lauren M CST Andrew DO CSFA Role Performed Surgeon - Primary Grease Machine Worker Journal Box Inspector Time In 07/24/24 13:26:00 07/24/24 13:22:00 07/24/24 13:22:00 Time Out 07/24/24 13:43:00 07/24/24 13:50:00 07/24/24 13:50:00 Procedure Carpal Tunnel Carpal Tunnel Carpal Tunnel Release(Right) Release(Right) Release(Right) Last Modified By: Marybeth Baker RN, Debra RN Myers, Debra RN 07/24/24 13:48:51 07/24/24 13:48:51 07/24/24 13:48:51 Entry 4 Case Attendee Eunice Grant RN Role Performed Grease Machine Worker Time In 07/24/24 13:22:00 Time Out 07/24/24 13:50:00 Procedure Carpal Tunnel Release(Right) Last Modified By: Marybeth Baker RN 07/24/24 13:48:51 Surgical Procedures MAGR Pre-Care Text: A.20 Verifies operative procedure, surgical site, and laterality Im.150 Develops individualized plan of care Entry 1 Procedure Carpal Tunnel Release Primary Procedure Yes Primary Surgeon Janine Israel DO Surgeon Comment RIGHT CARPAL TUNNEL Start 07/24/24 13:29:00 RELEASE Stop 07/24/24 13:47:00 Anesthesia Type Local Surgical Service Orthopedics Wound Class Clean Technique Details Closure Technique Primary Entire procedure No was performed via laparoscope or robotic assistance Last Modified By: Marybeth Baker RN 07/24/24 13:48:46 Post-Care Text: O.730 The patient's care is consistent with the individualized perioperative plan of care General Case Data MAGR Pre-Care Text: A.350.1 Classifies surgical wound Entry 1 Case Information OR MAGR OR 05 Case Level Level 2 Wound Class Clean Specialty Orthopedics ASA Class N/A Diagnosis Preop Diagnosis RIGHT CARPAL TUNNEL Postop Same As Preop Yes SYNDROME Postop Diagnosis RIGHT CARPAL TUNNEL SYNDROME Blunt or No Is the procedure No penetrating injury considered occured prior to Emergent/Urgent? the start of the procedure: Last Modified By: Marybeth Baker RN 07/24/24 13:30:03 Post-Care Text: O.760 Patient receives consistent and comparable care regardless of the setting Time Out MAGR Entry 1 Procedure(s) Carpal Tunnel Release(Right) Time Out Checklist Verifications Team Introductions Yes Confirmed Identity, Yes Completed Procedure, Incision Site, and Consent(s) Presence of Yes Site Verification, Yes Necessary Site Marking, Site Procedural Marking Equipment, Devices, Alternative, and/or and Implants Site Marking Verified Exception in Accordance with Facility Policy Anesthesia Review Antibiotic Received n/a All Anesthesia Case does not involve Within an Concerns Addressed an anesthesia Appropriate Time professional Interval Prior to Surgical Incision Surgeon Review Anticipated Blood No Expected Case No Loss Risk Addressed Duration Addressed Critical and No Non-Routine Steps to be Performed Addressed Nurse Review Equipment Yes Fire Risk Yes Checks/Concerns Assessment Addressed Completed and Interventions Performed Diagnostic and n/a Sterilization n/a Radiological Test Concerns Addressed Results Displayed are Appropriate and Labeled Other Concerns n/a Addressed Time Out Marybeth Baker RN, Time Out Time 07/24/24 13:28:00 [facility] Last Modified By: Marybeth Baker RN 07/24/24 13:29:13 Patient Positioning MAGR Pre-Care Text: A.280 Identifies baseline musculoskeletal status Im.40 Positions the patient Im.80 Applies safety devices Entry 1 Procedure Carpal Tunnel Body Position Supine Release(Right) Left Arm Position Resting at Side Right Arm Position Extended on Hand Table Left Leg Position Extended Right Leg Position Extended Feet Uncrossed? Yes Press Points Checked Yes Positioning Device Pillow, Safety Strap Outcome Met (O.80) Yes Last Modified By: Marybeth Baker RN 07/24/24 13:29:21 Post-Care Text: E.290 Evaluates musculoskeletal status O.80 Patient is free from signs and symptoms of injury related to positioning Skin Prep MAGR Pre-Care Text: A.30 Verifies allergies Im.270 Performs skin preparation Im.270.1 Implements protective measures to prevent skin and tissue injury due to chemical sources Entry 1 Skin Prep Syntegrity P (more content not included)... Normal [facility] MAGR Preoperative Recordon 1 09-23-2023 MAGR Preoperative Record MAGR Pre-Op Record Summary Primary Physician: Janine Israel DO Finalized Date/Time: 07/24/24 14:08:57 Pt. Name: GURVINDER BLACKBURN /Sex: 1965 MALE Med Rec #: [id number] Physician: Janine Israel DO Financial #: [id number] Pt. Type: D Room/Bed: / Admit/Disch: 07/24/24 12:51:27 - Institution: Pre-Op Case Times MAGR Pre-Care Text: Patient will be optimally prepared for surgery. Patient is free from s/s of injury. Provide information to patient/family related to plan of care. Verify patient allergies. Confirm identity and verify consent before the operative or invasive procedure. Entry 1 Patient Arrival Time 07/24/24 13:07:00 Preop Departure 07/24/24 13:20:00 Last Modified By: Ernesto Parrish RN 07/24/24 14:08:54 Post-Care Text: Patient is prepared mentally and physically and is ready for surgery. The patient remains free from s/s of injury. Patient/family express understanding of plan of care and participate in decisions affecting his or her perioperrative plan of care. Allergies documented appropriately. Patient identifiers and consent correct. General Comments: Pt arrives to PSW. Pt denies SOB cp,cough and flu like symptoms. Pt also denies pacemaker, defibrillator and sleep apnea. Pt is not a diabetic Finalized By: Ernesto Parrish RN Document Signatures Signed By: Ernesto Parrish RN 07/24/24 14:08 Normal [facility] Patient Handouton 07-24-[address] ISRAEL'S POS T OPERATIVE CARPAL TUNNEL INSTRUCTIONS: SURGEON'S WRITTEN INSTRUCTIONS: 1. Keep your hand elevated above your elbow for the first 24 hours after surgery. 2. Wiggle your fingers frequently while awake. 3. DO NOT lift heavy objects or promos executive producer forcefully with your hand. 4. Change your dressing in 1 day and apply an janet bandage as directed with the thumb tucked towards the palm of your hand. This keeps the tension off your incision. 5. You may shower in 1 day but do not submerge your hand under water. Put a 4x4 gauze and the janet bandage back on after you shower. 6. If you have any problems or concerns, please call the office at [phone]. 7. Follow up as scheduled. [facility] Coding Summaryon 07-12-2024 Coding Summary HTMLBase 64 AwbfskmpVLc4bHu+PGhlYWQ +ZL5NPQTbX79bkOLlcV6aB8 NMTElOSywgQVBQTElOSyIgb cVyYZ5oxZUgBRIw IC8+ZW1zJPWxOnwihLVrr8G 1wQF0Y06eck6qKFqdcVL2RY TiLnBvlfzzy9driWw3HNtjQ mluOyBt QIXdqK11UUS0oR07Dy78dIZ qxXAfl6zzfCy5RhExPZNtNS I0yDidGLvlg3NbGQCkY01gl JTxp6G4 UTPclBaviXVpXlVlwQH8vP5 aWSoiqyabj0kgdsvwUca4jt 31iDJfz9K9wAK7I6UykdL8X GJvbGQg BfbkyJGIsS6fzgiyr3oyozi nJqIlPTDvVSh4CPk9JOIqzP ewMsDrVZ67OJR8CTLfdjLsC 2FsLWFs jNmjVgM3u9I5Rz5OY2DPTzd qA4YQSCFZTMseeEZ+PC90cj 72E9IgOawqQqe9SDCpQUG4z QE6uX4a BIBfLQvgg6S5lTB1N3GiepW lwf3co2xdNCCvTKagW67ziD Fko5N5UMMwhTP6KDJevNgkI iBzaG93 Oyc+QUOhvUrek2XsTukjx0x ou8agbHr9JrlrJFJizkGvrK ztAFD9v7GmUr7sEAIaxUV1z SO2rG8n WqTmEaP5ZWrdQ691JmXpkUI nHbgvN97oE8DriLD+PHRyPj z0AYZuhXykBA6sN3BiAMYqn mctbGVm pYjdRA8zNGZxfzwwVRRioI7 iTUIlX2r2BrCiIdR1HCgrP0 EwCTXpmxrrIe92lI7aFwMhT yQ2SHyu Z8LpbbU1FAPbpAXrOYxcQKK 0H08yf7A1STUoQFWmMZE1aK O4pK8hfSolauacvOLdnTepz mVydGlj RWjvTOlaG817OKOauJxrVlF vZGluZyBEYXRlOiAgMTAvMj MvMjAyNDwvdGQ+EAEuHUD5s WxlPSAn vXSpOVaaGx5ikEbclPeuVT6 lWMCuegrkFBJmhF4fUJByiR UdhZpkPG6zFEXorwjfy830B iAxMHB0 PRRyzNJkV6WqhB9kKnVxDSN uWLTbT6XzhDCmUHqmY343ZD eyMvH9NFLvzrEdT8EwKUMio WduOiB0 y8D7Xw1Wp8LdpbavC4KibSS oVhZsFpwyWYp5B4BlCtpktM I+JO31VNRgRG97SIw2NPN6w WxlPSdi ORHlV7JamA8vXnOvUEIoZBR kOyc+PHRhYmxlIHdpZHRoPS bmFYGmRcZwzFhlFI8jYm1xZ GVyLWNv rAyevDDwShXwh3xaNIQbUHt xDR3jbQjtN8RemLX1SNYqu9 y5Yp89R39jA7ZluIL+PGNvb TD3hWQ3 aG4xBnZjEsD2QRxgZ785KtK oyFYmYkgbv5kir3nqkGs2Cl A4UXFkwnLwqPgeOKE0l0AbK i37S20q IHdpZHRoPSIxNSUiIHZhbGl noq7qtT6bDq0+NDWvyAU4nZ G7qV5rNqHvDmS9YZmuP324B nRvcCIv Ncxiv7ffb5cnsOr7OjJxEFL oqhEuhTxiSWR5d0KpTw54M1 KhnPusk8SqRtf6gx09lVGpt 2T0qGC0 K8QeXSZonvpqxRLerGgbJU0 hWZXhllapNQGcuV3qCYRlP0 q2ZnRmJyC8POamX8BcdhS1Y GJvbGQg XUNjuMHDrZ4seoang7ralbl rDdJsGCJrMGm8WPg9YTWsoX uiGcXhDMT0WzT6QMV3cXUqr X6saMpy lzptgH0tBbo+MDR9kEIsdZM ELX9eNixbpCD+VZOzOXQ8fS ffHMapVLZnqI1lRIHfU8f9G iAwLjA1 JOtoP0HogsW2WRFlpPViEPU huMLKbP6rqmsyn1iwmtltVo RmAMZzSJu4CRn4UVAttNqgR iBsZWZ0 KrS1LTM0mOPjyX7dgVysrhc ynU0nItn+YyuigMhnBCD0PD b7O2JqBsf9SNJenSmxBV5qt GFkZGlu Ww0olXuwfDcdPA9fOLCymgf pb943FkWgt4kgMZCygZAhPH bmLIE5H86bj5S5HFRuMTPaZ NZ3yWF1 yF5idPzadftsuIFwrHkbibI reBmjMVahBSdjF946ALBejN mjEvKxBSg2X8QcGfz9FCHfj YftDU8e pBEeEUfvJj5asQuqiJvzWI8 gJCStwzkwr025WxXel1oyRD KynCPwFFheYOF3O49gi2O7Q CMwMDAw QOX5bSU4wA8deEbfytvdbXJ mdDsgdmVydGljYWwtYWxpZ2 53FOUhdVbbJaCajTj3Q1KiR of4VBVw tNmaXT0bhHOrBNykAd2ofEu ceHjdNB6cNJBbphlzh336Yr Ejf6soDNZzgBRcYDtpUNA7S 12gt4T9 DHAsJMUdONS7eJT5xP9zyPk nbjogbGVmdDsgdmVydGljYW vaQYppH066ULWwiMdrOjTvb GllbnQg SGqzEUa7G7LvSyqbxRR+PC9 0UDWkDC45bZAvlTXbg6eijN o2EjCaOLKtKWY5jStlGTnac 3JkZXIt R34epBJdv1Y6WAWqiWcsgQC cPhUzbKS3bQ6tTWjxohger4 ycjgxoNqmap9rnej16qY09C 29sIHdp ZHRoPSIzMCUiIHZhbGlnbj0 lcT2bBr3+NJAwrDL6pHG9gH 2gAWVmJbL9YXaqB898OaVjr CIvPjxj h4tyq5lsrPe4HaC3VTIvspW pvZjbSQI0x0ZnUr28K89nUW dpZHRoPSIyMCUiIHZhbGlnb m0npL1j Ii8+QFYylGD0xST0oW1qZuB gYwK0HJjtC441OpEcmCBrDr saL70gO2LfzGX+IZWmDry0Y CBzdHls WU0ysMAjIZxmDu3tPFG3SjW qSnLmGXiwZ8KeAZEmuaswga csuEU3VONnXMYsiU83Vd5ef DogMTBw lYIGiM0zsrlby9jrreksPbY tISXzYSu0SDq4UYJocQakWl UuBMH2KdA0DSX8kVCusM7fo Glnbjog gU9aU2JlFJOqburcOh37dX4 jTqKxVaN1PZxvFad+RFVSSV WIE7EgDDkCAfreDEoKPQ86M 4KlSav4 NXMviJkkRZ9wpBGbTJbbGe9 wzFmlcFlpLU0tXXDtcwsiGT VluR9hNPTcrDVzeSlrBT7dK TBpbjtm q629ZxZzBYD2OUMhiKPsU6A wwY9vCnFcKYZoKBAuT8CzsW HuNZawE238EFzzQjT9MZUdl hFtV8Jg MOXfvQbuKwU4h9M6Gm7bQR7 yTi9wVNP5GB42HJ39tZShy8 Q7iJA2A3RmJYGhoycdostuv WE0UCRy FOOpzU23dCXmAKnvGi1de5S 2n426FAQlHLIhaA30Gn5uaM fwGVHycTDPzT2zlnulr5pmm jogIzAw FGAuWTi4VBk9ACHgkDmiOfG pVTX4BfC5GOQ8yKLyzG9mdU luhpulvM8fIhf+NTcgWWVhc uL4A9Ql Rgm2WQOhxIyfUN4yoMGuJPv nQy6ojOoamHhsBS6rWQBsmn oyXUIxiT0yJPRvvNSqqSpyM L5pZBJw sjubi106NkKrHZH4HGNaoUB bI7WbnS7rDnVyXLZlCDRyM9 UnnMFqVWfoN596OSgsVgD0V HZlcnRp C2HbHYAvmUyiOfB9r3S7Jh3 GRQrDCN41DU32rSNql8M8kR H6I3DfAWLshfvjmhgdjUM2Z DAuMDUw gF90eGWdTCofNv1sc1S0t42 7NKCoDIJvcZ45Ki6zhNftUV KjwZIJvW6uinwaw7qldjkgL zAwMDAw NWt1KCw2QFKhqUsrJhFsSBA 4VbH9YDF6kNEpaI6avAolgc cdlA4vMsc+QDH7MQB4vjukh wl9L2Ip PjwvdHI+XX73ZNDdUR01nPA csXRby6axsCw2DtVyRFXqLC H8aXadEVkwh4OyCYWyN56sa WWxq6B5 IDQziGitoUNhOnIzzIU1eQ3 qSHchsmdcp4ffwbyaPfjat8 xyfh72wF28E60oROmzFQPgV SIzMCUi VNIhbBsagy3bzU1lFh9+PGN tlKU1yEH1oL7yImPmOmN9DL voM869RxMlyLEhUdajf4ilr 7xvoLz6 UsBuBSDjnsYhsBopQVS1o2L hUk42G31hWFifUOAxMXKqWX AiGFGfoNoyjk6daK2wXn8+P D5jm3sd cp24mP38rKY+MOYzLDE7fPa bAKhdAFTjqT2pJAfoDgJ1BU FyBsBopO70eVYxPIzfVl1dh WdodDog LU6gNWPcrlbki306GeXol9k qTIHpvVPtNNasKEK9N15ia8 C3BKFpHMKiSEF3dDH6oM9bl Glnbjog bGVmdDsgdmVydGljYWwtYWx yW649EAZioElhIgCvmGSyB0 kdxwOZYA7nQzonmNT+PHRkI HC8qLgy LTcbBJHzqH5vNTBzU5o3HrK rLcQ2YSfkZ0EarhW8NOWlgX VcMBAtjPCCeB9tsxyjh5hyw jogIzAw ZLGcYWv9VLc1PFTbcNevXbX fACY8DfT0LJM5lMRcsC5lgF rjtqgmgR4mWvh+RklOOjwvd GQ+PHRk EFZ5tLjeQFlmIPWhrU7cPHQ oW0o9EpLyQhN4SIstI5Ppkk P7JOYtqPJxSKPtrGDRiJ7vh jgbq7lj qwlrHbXsOLDmUAz9IPu4JYL kgKuqFmJoQTV6GsE5EHE3jO JmaM6fjHfhyoejyN0jKjt+T VJOOjwv dGQ+VFKgZWN5iLtrAYrsLIX ikQ8qHHMeH5t1TqZsTkR7PW jwN3VkuuO8NRMpmQHsSALda AVFgG4g xytrm5qbwmsoSlGuXMNhAUg 1OCa8ACXhdZciAfUtPPR6Uc W4UEP7lQQmcO9paXbxfkqbq G9wOyc+ GIA3FFL7AP47WO72W0RzTii vdGFibGU+PHRhYmxlIHdpZH NiLIxsFIDvOvEsfGmgJN7iT a6zAKMp LWN (more content not included)... [facility] Billing Authorizationson Billing Authorizations [id number]#1.00O [facility] Consent Formson 07-11-2024 Consent Forms [id number]#1.00OT [facility] Discharge Instructionson Discharge Instructions [id number]#1.00OT [facility] Inpatient Patient Summaryon 07-10-2024 [place] [address] Patient Discharge Instructions Name: GURVINDER BLACKBURN : 1965 Patient Address: [address] [place] [address] Primary Care Provider: Name: Dev Perla DO After you are discharged if you find you have any questions, please, call [phone] ext [phone] to speak to a nurse. Discharge Diagnosis: Carpal tunnel syndrome, left Prescription Information: If you have been given a prescription for narcotics, seek immediate medical attention if you have any difficulty breathing or any sudden status changes such as confusion and sleepiness. If you or anyone you know is experiencing suicidal thoughts, mental health, alcohol and/or drug addiction problems; contact the [facility] 12/04 Crisis Hotline -Text 4HCOR de 109206. If you received any narcotics, sedation, or any other medication that causes drowsiness for the next 24 hours, unless otherwise directed: ? Do not drive a car. ? Do not operate machinery such as power tools, lawn mowers, drills, sewing machines, or stoves ? Avoid alcoholic beverages and drugs for allergies, nerves, or sleep ? Do not make important personal or business decisions or sign any legal documents [facility] would like to thank you for allowing us to assist you with your healthcare needs. The following includes patient education materials and information regarding your injury/illness. GURVINDER BLACKBURN has been given the following list of follow-up instructions, prescriptions, and patient education materials: Follow-up Instructions With: Address: When: Janine Israel [address] [place] [address] Business (1) 07/20/2024 2:45 PM Medications During the course of your visit, your medication list was updated with the most current information. The details of those changes are reflected below: Medications to Continue That Have Not Changed Other Medications allopurinol (allopurinol 100 mg oral tablet) 1 tab(s) Oral (given by mouth) every day. aspirin (aspirin 81 mg oral tablet) 1 tab(s) Oral (given by mouth) every day. cholecalciferol (Vitamin D3) 7,500 unit(s) Oral (given by mouth) every day. hydrochlorothiazide-lis inopril (hydrochlorothiazide-li sinopril 25 mg-20 mg oral tablet) 1 tab(s) Oral (given by mouth) every day. meloxicam (meloxicam 15 mg oral tablet) 1 tab(s) Oral (given by mouth) every day. metoprolol (metoprolol succinate 50 mg oral tablet, extended release) 1 tab(s) Oral (given by mouth) every day. pitavastatin (Livalo 4 mg oral tablet) 1 tab(s) Oral (given by mouth) every day. It is important to always keep an active list of medications available so that you can share with other providers and manage your medications appropriately. As an additional courtesy, we are also providing you with your final active medications list that you can keep with you. allopurinol (allopurinol 100 mg oral tablet) 1 tab(s) Oral (given by mouth) every day. aspirin (aspirin 81 mg oral tablet) 1 tab(s) Oral (given by mouth) every day. cholecalciferol (Vitamin D3) 7,500 unit(s) Oral (given by mouth) every day. hydrochlorothiazide-lis inopril (hydrochlorothiazide-li sinopril 25 mg-20 mg oral tablet) 1 tab(s) Oral (given by mouth) every day. meloxicam (meloxicam 15 mg oral tablet) 1 tab(s) Oral (given by mouth) every day. metoprolol (metoprolol succinate 50 mg oral tablet, extended release) 1 tab(s) Oral (given by mouth) every day. pitavastatin (Livalo 4 mg oral tablet) 1 tab(s) Oral (given by mouth) every day. Take only the medications listed above. Contact your doctor prior to taking any medications not on this list. Diet & Activity Patient Activity Level: Patient Diet: Patient Activity Restrictions: Comment: Patient education materials, if any, will display below DR. ISRAEL'S POST OPERATIVE CARPAL TUNNEL INSTRUCTIONS: SURGEON'S WRITTEN INSTRUCTIONS: 1. Keep your hand elevated above your elbow for the first 24 hours after surgery. 2. Wiggle your fingers frequently while awake. 3. DO NOT lift heavy objects or promos executive producer forcefully with your hand. 4. Change your dressing in 1 day and apply an janet bandage as directed with the thumb tucked towards the palm of your hand. This keeps the tension off your incision. 5. You may shower in 1 day but do not submerge your hand under water. Put a 4x4 gauze and the janet bandage back on after you shower. 6. If you have any problems or concerns, please call the office at [phone]. 7. Follow up as scheduled. Viruses or Bacteria What?s got you sick? Antibiotics only treat bacterial infections. Viral illnesses cannot be treated with antibiotics. When an antibiotic is not prescribed, ask your healthcare professional for tips on how to relieve symptoms and feel better. Usual Cause Illness Viruses Bacteria Antibiotic Needed C (more content not included)... Normal [facility] MAGR Intraoperative Recordon 07-10-2024 MAGR Intraoperative Record MAGR Intra-Op Record Summary Primary Physician: Janine Israel DO Finalized Date/Time: 07/10/24 13:39:45 Pt. Name: GURVINDER BLACKBURN /Sex: 1965 MALE Med Rec #: [id number] Physician: Janine Israel DO Financial #: [id number] Pt. Type: D Room/Bed: / Admit/Disch: 07/10/24 11:59:40 - Institution: Case Times MAGR Entry 1 Patient In Room Time 07/10/24 12:58:00 Out Room Time 07/10/24 13:28:00 Anesthesia Start Time 07/10/24 13:10:00 Stop Time 07/10/24 13:26:00 Surgery Start Time 07/10/24 13:10:00 Stop Time 07/10/24 13:26:00 Last Modified By: Eunice Grant RN 07/10/24 13:31:40 Case Attendance MAGR Entry 1 Entry 2 Entry 3 Case Attendee Janine Israel Diane RN McMurray, Lauren M CST Andrew DO CSFA Role Performed Surgeon - Primary Grease Machine Worker Scrub Personnel Time In 07/10/24 13:03:00 07/10/24 12:58:00 07/10/24 12:58:00 Time Out 07/10/24 13:26:00 07/10/24 13:28:00 07/10/24 13:28:00 Procedure Carpal Tunnel Carpal Tunnel Carpal Tunnel Release(Left) Release(Left) Release(Left) Last Modified By: Eunice Grant RN, Diane RN Kokinda, Diane RN 07/10/24 13:31:50 07/10/24 13:31:50 07/10/24 13:31:50 Entry 4 Case Attendee Geovanna Zaidi QUICK SERVICE TECHNICIAN Role Performed Journal Box Inspector Time In 07/10/24 12:58:00 Time Out 07/10/24 13:28:00 Procedure Carpal Tunnel Release(Left) Last Modified By: Eunice Grant RN 07/10/24 13:31:50 Surgical Procedures MAGR Pre-Care Text: A.20 Verifies operative procedure, surgical site, and laterality Im.150 Develops individualized plan of care Entry 1 Procedure Carpal Tunnel Release Primary Procedure Yes Primary Surgeon Janine Israel Left Marcelo DO Surgeon Comment LEFT CARPAL TUNNEL Start 07/10/24 13:10:00 RELEASE Stop 07/10/24 13:26:00 Anesthesia Type Local Surgical Service Orthopedics Wound Class Clean Technique Details Closure Technique Primary Entire procedure No was performed via laparoscope or robotic assistance Last Modified By: Eunice Grant RN 07/10/24 13:32:00 Post-Care Text: O.730 The patient's care is consistent with the individualized perioperative plan of care General Case Data MAGR Pre-Care Text: A.350.1 Classifies surgical wound Entry 1 Case Information OR MAGR OR 01 Case Level Level 2 Wound Class Clean Specialty Orthopedics ASA Class N/A Diagnosis Preop Diagnosis LEFT CARPAL TUNNEL Postop Same As Preop Yes SYNDROME Postop Diagnosis LEFT CARPAL TUNNEL SYNDROME Blunt or No Is the procedure No penetrating injury considered occured prior to Emergent/Urgent? the start of the procedure: Last Modified By: Eunice Grant RN 07/10/24 13:13:18 Post-Care Text: O.760 Patient receives consistent and comparable care regardless of the setting Time Out MAGR Entry 1 Procedure(s) Carpal Tunnel Release(Left) Time Out Checklist Verifications Team Introductions Yes Confirmed Identity, Yes Completed Procedure, Incision Site, and Consent(s) Presence of Yes Site Verification, Yes Necessary Site Marking, Site Procedural Marking Equipment, Devices, Alternative, and/or and Implants Site Marking Verified Exception in Accordance with Facility Policy Anesthesia Review Antibiotic Received n/a All Anesthesia Case does not involve Within an Concerns Addressed an anesthesia Appropriate Time professional Interval Prior to Surgical Incision Surgeon Review Anticipated Blood Yes Expected Case Yes Loss Risk Addressed Duration Addressed Critical and Yes Non-Routine Steps to be Performed Addressed Nurse Review Equipment Yes Fire Risk Yes Checks/Concerns Assessment Addressed Completed and Interventions Performed Diagnostic and n/a Sterilization n/a Radiological Test Concerns Addressed Results Displayed are Appropriate and Labeled Other Concerns n/a Addressed Time Out Eunice Grant RN, Time Out Time 07/10/24 13:08:00 Participants Geovanna Zaidi QUICK SERVICE TECHNICIAN, Eunice Grant RN Last Modified By: Eunice Grant RN 07/10/24 13:13:48 Patient Positioning MAGR Pre-Care Text: A.280 Identifies baseline musculoskeletal status Im.40 Positions the patient Im.80 Applies safety devices Entry 1 Procedure Carpal Tunnel Body Position Supine Release(Left) Left Arm Position Resting at Side Right Arm Position Extended on Hand Table Left Leg Position Extended Right Leg Position Extended Feet Uncrossed? Yes Press Points Checked Yes Positioning Device Pillow, Safety Strap Outcome Met (O.80) Yes Last Modified By: Eunice Grant RN 07/10/24 13:13:59 Post-Care Text: E.290 Evaluates musculoskeletal status O.80 Patient is free from signs and symptoms of injury related to positioning Skin Prep MAGR Pre-Care Text: A.30 Verifies allergies Im.270 Performs skin preparation Im.270.1 Implements protective measures to prevent skin and tissue injury due to chemical sources Entry 1 (more content not included)... [facility] Preoperative Record MAGR Pre-Op Record Summary Primary Physician: Janine Israel DO Finalized Date/Time: 07/10/24 13:43:42 Pt. Name: GURVINDER BLACKBURN JOSE ARMANDO /Sex: 1965 MALE Med Rec #: [id number] Physician: Janine Israel DO Financial #: [id number] Pt. Type: D Room/Bed: / Admit/Disch: 07/10/24 11:59:40 - Institution: Pre-Op Case Times MAGR Pre-Care Text: Patient will be optimally prepared for surgery. Patient is free from s/s of injury. Provide information to patient/family related to plan of care. Verify patient allergies. Confirm identity and verify consent before the operative or invasive procedure. Entry 1 Patient Arrival Time 07/10/24 12:08:00 Preop Departure 07/10/24 12:56:00 Last Modified By: Ranjana Adkins RN 07/10/24 13:43:14 Post-Care Text: Patient is prepared mentally and physically and is ready for surgery. The patient remains free from s/s of injury. Patient/family express understanding of plan of care and participate in decisions affecting his or her perioperrative plan of care. Allergies documented appropriately. Patient identifiers and consent correct. General Comments: Pt arrives to psw ambulatory. Pt denies cp, sob, cough or flu like symptoms. Pt denies pacemaker/defibillator or sleep apnea. Finalized By: Ranjana Adkins RN Document Signatures Signed By: Ranjana Adkins RN 07/10/24 13:43 [facility] Patient Handouton 07-10-[address] ISRAEL'S POS T OPERATIVE CARPAL TUNNEL INSTRUCTIONS: SURGEON'S WRITTEN INSTRUCTIONS: 1. Keep your hand elevated above your elbow for the first 24 hours after surgery. 2. Wiggle your fingers frequently while awake. 3. DO NOT lift heavy objects or promos executive producer forcefully with your hand. 4. Change your dressing in 1 day and apply an janet bandage as directed with the thumb tucked towards the palm of your hand. This keeps the tension off your incision. 5. You may shower in 1 day but do not submerge your hand under water. Put a 4x4 gauze and the janet bandage back on after you shower. 6. If you have any problems or concerns, please call the office at [phone]. 7. Follow up as scheduled. Normal [facility] CMP Standardon 06-16-2024 eGFR Non AA >60 Invalid Interpretation Code [facility] Comment on above: Performed By: #### 7 [id number], [id number], 1013113, 1997010, 5342537, 6938074, [id number], 6807723 ####[facility] (DEFAULT)[address] [place] [address] eGFR AA >60 Invalid Interpretation Code [facility] Comment on above: Performed By: #### 7 [id number], [id number], 8551703, 7351320, 9243990, 6198074, [id number], 8574457 ####[facility] (DEFAULT)[address] [place] [address] Albumin [Mass/Vol] 4.4 g/dL Normal 3.5-5.0 [facility] Comment on above: Performed By: #### 7 881186, [id number], 7960662, 5489178, 9277167, 5584997, [id number], 1399048 ####[facility] (DEFAULT)[address] [place] [address] Albumin/Globulin [Mass ratio] 1.6 {ratio} Normal 1.4-2.6 [facility] Comment on above: Performed By: #### 7 083405, [id number], 7317591, 5372456, 6866402, 0963655, [id number], 5735615 ####[facility] (DEFAULT)[address] [place] [address] 30035 Alk Phos 58 IU/L Normal 32-91 [facility] Comment on above: Performed By: #### 7 427423, [id number], 8747759, 2783586, 1948540, 0723384, [id number], 4715556 ####[facility] (DEFAULT)[address] [place] [address] 78126 ALT [Catalytic activity/Vol] 40.0 U/L Normal 17.0-63.0 [facility] Comment on above: Performed By: #### 7 488530, [id number], 4972470, 5126111, 5839691, 8502741, 5780023976, 4874348 ####[facility] (DEFAULT)[address] [place] [address] 97288 Anion gap [Moles/Vol] 8.9 mmol/L Normal 5.0-19.0 [facility] Comment on above: Performed By: #### 7 248873, [id number], 2302317, 8346840, 8350814, 2590117, [id number], 8408591 ####[facility] (DEFAULT)[address] [place] [address] 16222 AST [Catalytic activity/Vol] 31 U/L Normal 15-41 [facility] Comment on above: Performed By: #### 7 176212, [id number], 2689061, 7515462, 1619681, 7272705, 7979195551, 7039618 ####[facility] (DEFAULT)[address] [place] [address] 36251 Bili Total 0.4 mg/dL Normal 0.3-1.2 [facility] Comment on above: Performed By: #### 7 681334, [id number], 4486029, 4944831, 4665055, 1521440, 5950891000, 7026064 ####[facility] (DEFAULT)[address] [place] [address] 36321 Calcium [Mass/Vol] 8.9 mg/dL Normal 8.9-10.3 [facility] Comment on above: Performed By: #### 7 762760, [id number], 8662114, 5736605, 2466084, 5029799, [id number], 0457683 ####[facility] (DEFAULT)[address] [place] [address] 71722 Chloride [Moles/Vol] 103 mmol/L Normal 101-111 [facility] Comment on above: Performed By: #### 7 348943, [id number], 7511868, 2569116, 1797068, 9471913, 8692019873, 7255096 ####[facility] (DEFAULT)[address] [place] [address] 93605 CO2 [Moles/Vol] 28 mmol/L Normal 21-32 [facility] Comment on above: Performed By: #### 7 506247, [id number], 6741925, 2647015, 4094987, 0795570, 2852240070, 9449417 ####[facility] (DEFAULT)[address] [place] [address] 54926 Creatinine [Mass/Vol] 1.11 mg/dL Normal 0.90-1.30 [facility] Comment on above: Performed By: #### 7 991159, [id number], 7896204, 0604124, 3754625, 4070915, 7110054083, 4750330 ####[facility] (DEFAULT)[address] [place] [address] 84381 Globulin (S) [Mass/Vol] 2.6 g/dL Normal 1.5-4.3 [facility] Comment on above: Performed By: #### 7 916424, [id number], 3872978, 7316540, 8148152, 2725590, 6391300943, 2871897 ####[facility] (DEFAULT)[address] [place] [address] Glucose [Mass/Vol] 89.0 mg/dL Normal 74.0-118.0 [facility] Comment on above: Performed By: #### 7 248012, [id number], 9453087, 4312210, 0686594, 4431160, 8030307793, 8360290 ####[facility] (DEFAULT)[address] [place] [address] 33306 Osmolality 277 mOsm/L Invalid Interpretation Code [facility] Comment on above: Performed By: #### 7 735991, [id number], 0946222, 3539850, 1374067, 6118384, 7201391809, 2033142 ####[facility] (DEFAULT)[address] [place] [address] 70387 Potassium [Moles/Vol] 3.9 mmol/L Normal 3.6-5.1 [facility] Comment on above: Performed By: #### 7 840080, [id number], 7759399, 1478203, 6951868, 6417322, 5399137391, 8792832 ####[facility] (DEFAULT)[address] [place] [address] 10432 Protein [Mass/Vol] 7.0 g/dL Normal 6.5-8.1 [facility] Comment on above: Performed By: #### 7 641511, [id number], 3214781, 4147031, 3503100, 9445990, 0484162783, 4322026 ####[facility] (DEFAULT)[address] [place] [address] 40951 Sodium [Moles/Vol] 136.0 mmol/L Normal 136.0-144.0 [facility] Comment on above: Performed By: #### 7 819458, [id number], 2362005, 5337548, 5471949, 1722244, 5407220466, 4512634 ####[facility] (DEFAULT)[address] [place] [address] 54944 Urea nitrogen [Mass/Vol] 28 mg/dL High 8-26 [facility] Comment on above: Performed By: #### 7 [id number], [id number], 5580558, 4720585, 2489522, 6098808, [id number], 5350182 ####[facility] (DEFAULT)[address] [place] [address] 44797 Urea nitrogen/Creatinine [Mass ratio] 25.2 mg/mg High 4.6-16.2 [facility] Comment on above: Performed By: #### 7 518857, [id number], 5185608, 6183347, 6782465, 3367900, [id number], 8599440 ####[facility] (DEFAULT)[address] [place] [address] 99182 GGTon 06-16-2024 Gamma glutamyl transferase [Catalytic activity/Vol] 42.0 U/L Normal 7.0-50.0 [facility] Comment on above: Performed By: #### 7 157828, [id number], 1983618, 4114146, 4509500, 5766488, [id number], 0418462 ####[facility] (DEFAULT)[address] [place] [address] 60675 Iron Levelon 06-16-2024 Iron [Mass/Vol] 56.0 ug/dL Normal 45.0-182.0 [facility] Comment on above: Performed By: #### 7 557602, [id number], 1353612, 2339957, 3874803, 4169270, [id number], 7074242 ####[facility] (DEFAULT)[address] [place] [address] 22141 LDHon 06-16-2024 LDH 233.0 IU/L High 98.0-192.0 [facility] Comment on above: Performed By: #### 7 921717, [id number], 1441693, 7806122, 3773441, 0049128, [id number], 5826440 ####[facility] (DEFAULT)[address] [place] [address] 44382 Lipid Panel Standardon 06-16 Cholesterol [Mass/Vol] 235.0 mg/dL High 66.0-200.0 [facility] Comment on above: Performed By: #### 7 672238, [id number], 0136464, 7136618, 7560246, 7622227, [id number], 0935105 ####[facility] (DEFAULT)[address] [place] [address] 95307 Cholesterol in HDL [Mass/Vol] 41 mg/dL Normal 40-71 [facility] Comment on above: Performed By: #### 7 980769, [id number], 0204243, 2557109, 5868742, 1785025, [id number], 7271241 ####[facility] (DEFAULT)[address] [place] [address] 13273 Cholesterol in LDL [Mass/Vol] 144 mg/dL High 1-100 [facility] Comment on above: Performed By: #### 7 983033, [id number], 2285329, 0951979, 5008203, [id number], [id number], [id number] ####[facility] (DEFAULT)[address] [place] [address] 04308 Cholesterol.total/Ch olesterol in HDL [Mass ratio] 5.7 {ratio} High 0.0-4.5 [facility] Comment on above: Performed By: #### 7 [id number], [id number], [id number], [id number], 7905952, [id number], [id number], [id number] ####[facility] (DEFAULT)[address] [place] [address] 71564 Triglyceride [Mass/Vol] 249.0 mg/dL High 0.0-150.0 [facility] Comment on above: Performed By: #### 7 [id number], [id number], [id number], 5790387, 5090063, [id number], [id number] ####[facility] (DEFAULT)[address] [place] [address] 08144 VLDL. 50 mg/dL High 5-40 [facility] Comment on above: Performed By: #### 7 [id number], [id number], 0438793, 3246508, 4263203, 6626932, [id number], [id number] ####[facility] (DEFAULT)[address] [place] [address] 85804 PSA Screenon 06-16-2024 PSA Screen 4.27 ng/mL High 0.00-4.00 [facility] Comment on above: Result Comment: [employer] System (Chemiluminescence) Values obtained with different assay methods or kits cannot be used interchangeably. Results cannot be interpreted as absolute evidence of the presence or absence of malignant disease. Performed By: #### 7 [id number], [id number], 1433719, 1586043, 8269550, 2710118, [id number], [id number] #### [facility] (DEFAULT) [address] [place] [address] 23256 Phoson 06-16-2024 Phosphate [Mass/Vol] 2.9 mg/dL Normal 2.5-4.6 [facility] Comment on above: Performed By: #### 7 [id number], [id number], [id number], 8963151, 4364685, 7068810, [id number], [id number] ####[facility] (DEFAULT)[address] [place] [address] 63761 Uric Acidon 06-16-2024 Urate [Mass/Vol] 7.2 mg/dL Normal 4.8-8.7 [facility] Comment on above: Performed By: #### 7 [id number], [id number], [id number], 7335088, 2974285, 2306996, [id number], [id number] ####[facility] (DEFAULT)[address] [place], [place] [id number] Coding Summaryon 06-13-2024 Coding Summary HTMLBase 64 CiifvbxcYBk4iBa+PGhlYWQ +AQ2SZWRcA38zgARgqK7wY6 NMTElOSywgQVBQTElOSyIgb lFcMK3tjWDxODNs IC8+BO3oBXZfIxunuOKzo3J 5gYC2N65lfv4kYAfzkYX2ZM GjMkKjojkpk3nwqQr9NWbfP mluOyBt FFEqnX36EJM2xV28Wl55pBH xjBRnq0wptRg4ZsYzGUTzGL K2yBqdLOnte8CoGVVlP40ar HSnz1G4 WDDakTcvzLWhCtYmdGG2nR1 oGFdephfzf2hycanxXmf9fx 57aQGze0T4bVK2T2SmquX0I GJvbGQg XfkwjEXWwD9ptvsul6tteed zDdBfQUNkQPe9OTe3VZUnrX huWtDhBR01DTT9IGWfmtMaK 2FsLWFs rHwkOnU3p1K0Qb2EA5NZGfk gX5KEWPPTKZyycZN+PC90cj 12P0AyEoweQry7OFClXLT8k LC9dX7k HRAeJZogk7V8uGO5A2RitnM tyd2ih4pbRIMzBPthB15ymK Klo3W6XPNcxVI4IPTtySptM iBzaG93 Oyc+RJQmoWoaa2GpXpihg9w ow4bexJd6EgkjCSHpndYnpS wjSEE6y2XzPq3uOUJqsOR0o NR4wE2l RmQyRfM2DYenG085EpMjfWX wUduzK03jY0HqaPT+PHRyPj s2PBOwnLqwZG2iZ2UlCMZbl mctbGVm lVukWL1dVTVjantjGMGliL0 kSAFyP6d4RcCiLfV2CVrkN5 FeBFDzqtfqBa31oQ8sZzEmR xI5JOxa Q1AkyuS8EUCqwWMjDPweAAV 5J87ye6U8RRPaRSXvAKI0xJ M0qS9twNucbkynaDXnlZiro mVydGlj NOdyRLvuI435OCCkoOkzQgV vZGluZyBEYXRlOiAgMDkvMj QvMjAyNDwvdGQ+YUMtOSB0m WxlPSAn kNDiEEilDn8miSnjcWzbOD3 oCYMijituXUKphN8tSUNirP QloHbdNI3vHWVtwmvnd776W iAxMHB0 XZIrnPBpJ5DurE5hZiFcAXW oYAJsO6NuoYBbNKrdD453NA phMpR6ROTzqvNbE5PmTPAtd WduOiB0 c2P2St4Yr1LzjbdcB3ViuYB cQiQeDwmpOKr3Z6FnCwbzcA I+EQ16UGWtIZ26PIf8KBC7s WxlPSdi VEGhQ3RduE4yJcEhYXMrOEH kOyc+PHRhYmxlIHdpZHRoPS sbOLWbAaBpyKvsMM8cHu4gL GVyLWNv oXfpfGNiXbTof2lwLHKjMZw zNV8kdBwsV5GmtPD0OODeq4 c4Qf40H92yV9PmmEB+PGNvb TU0pZX1 bC1bMnTtEkT2BIelG718RvL ecEDzNvehd2zof0ddyOq0Rz R1AMKpkkXknEmpEAD4t0OfX m98L90a IHdpZHRoPSIxNSUiIHZhbGl jvf1inQ4tGq5+HIIubID7bL R5rJ3fVoMaIhS6VRqmO228V nRvcCIv Oknvs0dbz0fwvCu1WxAjYXE touDuiFnzHKW4a0CzVg03B1 CssAvdh0IzLlo7zx87qIEuw 7G6vVT2 W2IfDAOtqazzpFVnyRpaJI2 xDYZkswscLQHynM5oQSUhH2 o1RvWmUwU5HJneR6CbadX3V GJvbGQg CKAdbKZSoZ7poxhez5rwhdh oTxMfNJMdMUu1YUv7YBXslU kaAtCaFPI0LeQ0VMB4rDNmn S2zcYit tdcsfI4oBpt+CSF0jEKgqQB HWP9gFgjcjPF+YLXgYJM2aW eeHCliGDGgnM5mQWTmF3g1N iAwLjA1 GOlcE6KigeH0CRQafBMhWFC kuDNXuX2ezkzub1usedrhQj ChBNXwPZj3FMn3PBDxcPftQ iBsZWZ0 LqE0KLC0eDAhgW5bvKdekgq xdV1tLim+VnfjmRsiSTD3KV i1F4QaIre0KGUhkQmwUB5ba GFkZGlu Oh7vaSsdeDipSO4sVBRrynp dz092BiIls9uvQZOnxGJbMI cjQFY4G80fl3S3QLVsRLErF LY7rKH7 fC3ohVyjdadolKXghKzkktM qdEqjWGfrNHyeF862NIYljF pyObNvUSr9F2LkOxg7CHIyk FbgAZ8j zKGsNPlhXs4jkGgjoNofFE7 aOPFcgbewb502SiZjf4faZF UxgWDqBYwsXLV2U79ja7N6V CMwMDAw PBH4wZV3uZ2kfDqqqudteDE mdDsgdmVydGljYWwtYWxpZ2 92MBZmcAilMyPduAh2D2ZnO gh9JFKs lRtfKX8noNXzZXrhJj0ooMq buYfzVU0dNHSyuaxlt601Xi Rsn6qjCVNejXHwBMbsEPK8Z 27ka7U7 MOYjVMRfNDQ6rAI0xY8znFy nbjogbGVmdDsgdmVydGljYW aoRKqkX847PZObqLshCqHbf GllbnQg NQnvMRi9F8UeOjbrlKI+PC9 7FIXzDR07cADoxVQeb4wbyN k4CpAtVHTtAWY9mNvuFOnko 3JkZXIt C69haEZsw1E0QSHncDpbjID jQjQnyNA0eQ5mOPxdlfwev8 oecztfQqsht5hqjo20qU40E 29sIHdp ZHRoPSIzMCUiIHZhbGlnbj0 hfF4fLg9+VQBufTM5aIP5uJ 6fSMLgMoY2AKdwY296DdAyk CIvPjxj w5qmp8yuxXg3ZcM7UKUgumT glMupKIY8a5DzLb68X46nVY dpZHRoPSIyMCUiIHZhbGlnb l5gjW3t Ii8+HOHciXW3gPC7sT3mVdQ fSkW7JYuaC041NfPynETmYb ulR97iW1FdaGU+ZGEaKzv2H CBzdHls YS1kzPVyZQdxOq0vCYD8VvK kXoAeEVxzZ4RqGMCphzrjav nzfTW1GIJaZETzcN94Gy8ax DogMTBw yHEBhL6rviipl0eawpcyBwR rVZAmAUx3CYz5TLPfhQybQm XwMHJ5GhA1GFC5iMSqiN6zd Glnbjog fV3yY7FbANVsaiwnEz43oP2 iOsJdTpR9UXosWcb+RFVSSV WLD7XoVQaUMgbxJHtLFG09D 8PbKcq5 RXEhqFlqNJ0vcFYkUGbnLd4 zrXxssUmlQA1kLXLmaixeBX EanT2vTSHpyZXfdPnaMH9kT TBpbjtm h614FnWbQHK0UWPegPTfU7X pcF8rRlWiLNShDLJqS0NhkS SlXWedV052XLpcDzK3HBWzl fGpU5Pq MXBolUsyVcO4s4Q3St5qEA4 pLk2hYTI0DZ27AL85tIKcg5 B5hPH7F0EvBPRlqdyjaspis SP2PUDk CFMvaS19zJJeXXgyZk0fj1G 2v320GFMbUEEdqV45Cb2pgY xxEDWenXQQiN4mdcsds0adl jogIzAw SNFaIUj3UYg1XZDwtImdOfO aZVF7IgJ3PIK8gWFvyO4fpB ndibfxeK3wOqm+NTcgWWVhc aR5T1Pq Gmh8JNNrgTogXJ8ahKKxSMd yFo1qiAdibWvmOC2nYCIreo ypJSEtlK5xBZIkcUDxgZkmC I8bLONh cgmid828BeCmYPK2GMAxpWZ nQ7PfsI3kQdKeOUAyNTGgN2 FcpXLrYXjwK460IRumUfB2H HZlcnRp B2YhRZPtgInaZhA7d9U5Ij2 FFOeYOB49DQ01pIRep1T2aQ J1A7SyKUFpndtdeiekbUH6G DAuMDUw qD79kHKhTSaxGu9ei6M3k93 4ZHWiKCHmzX92Eh1dhLtpES JorQTVbI0aqeqdq0ixgoiiE zAwMDAw WFc5WYr6NNFbiOqaIsAaZOC 6BjB4XTR6qJIxwS2xsXlxce kbiI5bHko+F4J1H6NaBkhks HI+PC90 FOKpJU75oFFkfGMeu6rcnNk 8KcUdZIQpPIB7dGphNZxey6 JjMZAeT76lmOQir8Y2LXLsx GxhcHNl TgPsqGH9zS5iEWxygarkh0i qftrsBnyxo0iqyi74wZ97Q6 9sIHdpZHRoPSIzMCUiIHZhb Znffd9u fU4yJt0+KWBmlOL8uZB5jT9 eWhWaWuO9CXuwX718ZpNvdM GdMjsgc7bgj0psoLd8SgEoU SIgdmFs vEqxTPW2s0PyYe24N20yOFt pZHRoPSIyMCUiIHZhbGlnbj 7nxC7sFa9+NO0ob3rwik74x D48dHI+ TYQpTLS1lThpDXaoNZYlfM7 gVTviYpN1BEGvEsUerJ78nD XgADjqGb0liSpgcUsmMT7uQ TBpbjtm j473WxSbt6ltISMgbIEkAHf iPAM3H23mp3B4VGLjSVIgLK R5dLO4dB9zbQngrixpuRAxq DsgdmVy qChdVDbpGVxbV118GXMqhTn xFdZbgTAoJ2zhljDZJC2sFq wvdGQ+HIQuUTN9eIouXEkoI OVwfO3i CXIpB4q5HoYyDtO9CZfgG6Z qfzK2URTltJWwVCKdcIJBeJ 3apglvu4rtaudeAeSsRGJjK Pa7HDw2 EUYfjJgpKlQpKLY4CrI4JYE 1wAWguO2brJuwiafblZ0pZq c+RklOOjwvdGQ+FZLsYJQ4w WxlPSdw LVOfcA4hIKDfS6u3SsMeVvQ 3MSrvE5MingS3HLWstZSvPJ TmtEUGtY0aptjeu2wjmklhB zAwMDAw QTw2WLu2VBPhxWuhZvMyFRN 7HlT5QQP8iPKhqM7khHpkub picC0zWml+TVJOOjwvdGQ+P HRkIHN0 sHhqSNojMQNezW5nNKZbW9a 4DgPwKdH0BWcuW1ClpkA4QR WdnIIoWMBskJXEoT1qdsznf 2xvcjog XlCoQUAiHFy7XEx2FZZlcZb gGhUjRBI7FxG2LPF1wJIteV 2acEzgrshtoY4pQev+UGF5Z OB6TG88 LJ59J0SlJwmmsUUbsOO+PHR hYmxlIHdpZHRoPScxMDAlJy FffPvpGI4rBb4uCINiIBLda GxhcHNl OiB (more content not included)... [facility] CT Abdomen/Pelvis w/o Contra ston 06-01-2024 CT Abdomen/Pelvis w/o Contrast EXAMINATION: CT Abdomen/Pelvis w/o Contrast, 06/01/2024 3:45 PM EDT HISTORY: Calculus of kidney COMPARISON: Renal ultrasound 03/21/[address] chest 03/19/2024 TECHNIQUE: CT scan of the abdomen and pelvis was performed without IV contrast. CT dose reduction technique was used, including Automated Exposure Control. FINDINGS: Lung bases are free of nodules, infiltrates, and effusions. There is no pericardial fluid. There is no hepatic mass and no biliary ductal dilatation. Spleen, adrenal glands, and pancreas are normal. There is interval resolution of the left-sided hydronephrosis. There are no renal calculi. There is no ureterectasis or ureteral calculi. There are numerous pelvic calcifications consistent with phleboliths. No stones are seen in the bladder. There are numerous colonic diverticuli. There is no bowel distention. There is no pericolonic inflammatory change. Normal appendix is visualized. There is minimal atherosclerotic change in normal caliber abdominal aorta. There is no adenopathy. There are bilateral fat-containing inguinal hernias. There is degenerative change at L5-S1. IMPRESSION: Interval resolution of left-sided renal obstruction. No residual renal or ureteral calculi. Final Dictated by: Analia Bourne MD Dictated DT/TM: 06/01/24 4:47 Signed (Electronic Signature): Analia Bourne MD 06/01/24 4:54 pm Technologist: [facility] Provider Orderson 05-25-2024 Provider Orders [id number] [facility] Summaryon 04-06-2024 Coding Summary HTMLBase 64 OnqtmwkiDSr6pZr+PGhlYWQ +QM8KSNNjK18noSGyoX0uT7 NMTElOSywgQVBQTElOSyIgb sXwBT6nhMPiYWFb IC8+DZ6nMMPkOggspAMdl5S 9mQM7E50cgm3wZVgiyGE6TX BeDmXxyfwei6bybKf4FQesL mluOyBt SAVvrB59WMJ6vV90Ce87zXT lnLMrq5cizPg7UkHyYPAeKW I5nJciSLieg4PjBFBbC62fy LDzb1V5 CTTanQzctRHaPbXysNB2yP7 mGZehegeui6ufxnjoJrb8cc 07mQOqx4X5vVR3T7VxlkJ4J GJvbGQg VdkggLOYiN5uncjlz3shlhc bZxCnYFPiITt0LHo7PHAfcQ zmShIuVH04XTD1YENuvoZoT 2FsLWFs rDknZgF9g3D2Ef3OF6WTBwh aC5ZPAMWHCPyucJC+PC90cj 50Z0ZaVxlnKsk5AXIzQKS2i GK7jX8b SQTaUApkg1K2wAF9C1NtcuN jsq7cz1pmKUKfWQbaQ34fkX Eee2Y5MUIuzPZ5TZCldUryQ iBzaG93 Oyc+ZQXegCgpr0KoNbiwq2t qo7jcbSa5FsgcFVFucaEscT yiUMJ1i5IpLv2aRDOrzOJ9h WE2pM8u HvAxBlI0NMztT150LbJxbPL kWdfmY61zS2YbeJV+PHRyPj x3FEQidIxgRC9eA9WrVDOmu mctbGVm cJjtEV3iCRKusnhrZJHdjF0 iYBHfP1s6RlIaQqS0MRbuG0 AvWVHyosqsEx59yX9mHnEgK tP5YHga D9GpmqT3NWHhhDGhQCvjLHZ 2M26rf5Z6JYAzEGMoHDY7qD W7sZ1nzRwsurlyfKVjiJiyi mVydGlj IScrOEmvS254EQHpoHzbUiC vZGluZyBEYXRlOiAgMDcvMT gvMjAyNDwvdGQ+TLSrGPB0o WxlPSAn gFPaKVvsTb3pbXgkbZeeZP2 tWOFsheflUYVluG0gNGPzmS XyhAvrOC2zHHIgrxndm441E iAxMHB0 KQKdwSRuG3PkiC7pEsMeGDQ zRKEiU5IvaPDaBDxpA141JA zfBiE4DCDwzhViJ5NbOXPlt WduOiB0 a4F2Ds3Sm2OncglmI6PizVG qPiXuHmvoBPf9W1GeTyxfpZ I+DR98BIXpKN64NCl1JWC0u WxlPSdi QRVpP5IxtK4pYwVmATHlPPV kOyc+PHRhYmxlIHdpZHRoPS xdYXGaGnFonLhwGB6rHm3sL GVyLWNv xFipoCDjAlGuz4erKHIaAOn hFS0jbEtjL0MkyHK5RGZio6 v9Br48N65lZ2UkhFI+PGNvb TA1jZQ6 wW4hJaUhGsA7SCmvO798JpS erVHaDqilz0ptx8rftUd5Sq M5LCBysrJxnKdqCSK7a5XcD f15N98t IHdpZHRoPSIxNSUiIHZhbGl abv7heJ2sXq8+SFMyiQH7bX M3oH1uArYvRiO7WTsxO261L nRvcCIv Yquqq8arc1lwmNk5PaUyGRB jtlDamVzzUPP1c3QrCi62S3 UwjKcop8MkOuh3vq58lDKqo 8K9kQI9 E4JzXCFnuwruzUDygPreLG8 pYIPtrorvMXFvyB2mPNLvA4 h8EzYzZvY1MPceO0SgipM7F GJvbGQg HLKevBWGbT4debjnj0wlbll jCsSlYPInCFj9WWh0IULepV vtYmYqHMA7DdH3UYZ8pERak F6ohJwi owrteY7gDxj+PCM0bTEsfAW APP3rWeowjIE+EVDoCRM3hC sfBRwtQLSnuT7zPTOsQ5p6Y iAwLjA1 PCurM4GjiiA4DPUorHBpIVR wbJSFyJ5tnpmpj1nrvpdyKw PwOQDjVPo4CFs1VVZusShcG iBsZWZ0 MvG4ZTW0eYGbeW2qgEuzroy xhR8rUsl+ZxfkhDelTME4RJ b8L7FfVsh9TFWyfLzsNY9jj GFkZGlu Ae4mlEewdZrhAN7iGZMcupw xm885PsAor2piXYIsxJAqWB xiFHT4Y15es5H2XQBwDQHxT BM7mUC1 vJ3ndQhurlffgBTomBukdpP tpZjgRScaHTmnQ174DBFhwS gyGeYyYKq9J9TaHue8SEWof TmoWN9h sMHuVGmrZy2ebYpevUlaGR8 xKHIfpwcci598KeOcq8pfFE NppDYtOLtkYYW1G01qf9A2F CMwMDAw IRT3rCK4eW0dzBpirttkjAX mdDsgdmVydGljYWwtYWxpZ2 59ZFIsgChjOxMmkTi1C5KtH qg4YETq cUycRS6yoFAhVNsoUs7hcAz okKnyFT4gKDBsjzhnm040Sh Ufc4asCCCddZKbJFszJUO8T 44di6E1 EEFmBHBkQCG6qHJ8zD6mwTx nbjogbGVmdDsgdmVydGljYW trSEgsO406WUPscAspGkMjv GllbnQg WYokFYp9I7VxHkdcxKT+PC9 8NEPfDU36qBWaePLpm2dvtR r5CbFnMLMbRVQ4uTzyYGwmi 3JkZXIt M13cvUFyu8W6HSWwiArjgHG wWdAmpJX2pF2qOUremjtoj4 pbgctvYmjgy9nzts91iR42G 29sIHdp ZHRoPSIzMCUiIHZhbGlnbj0 bqV2mCy1+BXVoaRD0hSZ7cK 6xZQOlDrC5OPzqJ540BeKjs CIvPjxj h3fao5bisQg6NbP8ZHCgwbP fiZphVQH7i2AbDr99E07qBM dpZHRoPSIyMCUiIHZhbGlnb i9zaL7s Ii8+WOCleSF8sSR7sB9tVdZ lXdC9TNbeD315BkIffEHfIp juM52vG2DitAH+OMGhSmr1P CBzdHls JX1xgEGkQDkyQi4jCFW9DfQ cWkGiJEtwF3XiUQRzoloyod xiqLY6LFNbSCVlfY15Sf3tb DogMTBw rPTKxT0gexzvf3qurmltEhW iEMZiSBj1WHd8IAQkgTxqIa KmFVX2LaW7QGU3jRFdbB3yt Glnbjog wX6kL0NpMZPdvkwdWc04zN2 mFeAsPwQ6JJqzEws+RFVSSV QLE0AfKBpHGcsbVExKJS33H 0CeVhc7 YLFnmLeiDZ2koXZtHLafWs2 dpTwhcEjuMI7cVFFmriimCR TacB5wLASysYZctVmdVZ4uN TBpbjtm z575ShJmQBY4UVVtfELaT2A ytM1tBhEiYHJxTCTqV0CscM UjDCqlL945AQgrHsQ4AHNjc vWrC2Pr AVXlgTycZaX0b6P2Ua6pFD9 cMb9xMJG7II21MM10zSMiu1 A4yQJ4Y8SvYOXakthpodspl MB7EJTw YOKuuX63gWHmNJmsVu5bb3B 8r926UUWnFKEgvB76Ow7xdD klOGFuwVNCsL2lbmizb4xqv jogIzAw OXTjXRm4IKz6HPOcqTvnDpI gZII0XtL5GUT2jYWgqL2lwN uazecgxW4yOha+NTYgWWVhc kF5S1Zx Stp7KGIdiNfiBF0vfSAhGRi zSr2usVrgbPchXK7iCYRwcg thOXNckP9vXKCsoHTknLkcM Z9zIGBl bhwok189OpTtXSW1HBLgiYW hX7OzfI4xWcJiMZIyWADiR0 KsfTWyFIndP995IHqlVcU8R HZlcnRp H5JpQAHrpAycCvZ7s8A2An3 TWBqTCS71UA00oXJwu0U8dW X3S6BeRRUhbtatjifnvQA5Y DAuMDUw bY89nHTgMGmqGq8ry0W8h21 6CAXlOLWxdP50Ey4wwColON TooTUXwA2qtkqwh9sajxqeW zAwMDAw IVi1IYm2FNDtwKhbVdDgELN 4BcO0RZV7aEUlmV8wkKkoji fikM4dUpo+P9L7H4DqQvecg HI+PC90 EMVjEZ34aHIjbIDur3snsUj 5NxOmLSKrVKB0cVrtHBspx9 JnXQRlU60xpJEjl9Z8VDQdg GxhcHNl OqFhsRE6jY0lWCgmcjxpw5u qecdqArvpf8spwi68dN92P5 9sIHdpZHRoPSIzMCUiIHZhb Sohwq0r nL9dUs9+EFAqdNR2kDE8bB9 dXmCmXgR6QSkzB827DtRdjU UzXmjwa5fsc3whpXs1RsLtI SIgdmFs qKjfHWH0b3SiQh70U36nHEd pZHRoPSIyMCUiIHZhbGlnbj 2nuI2uNr9+TR2aw2jddi93j D48dHI+ OIQyCRX3rIadEPoaPQVoiJ0 wBWqxPlJ8XXCpAyQppP98wE KbQQdrZd9cyZbhgUigKG4lE TBpbjtm o472IaPju8qiVIVwlHFwQLm uQUI4Z67xy0J3YOAmFSXpMR T7qJG8gH4yuJssidswtQKsy DsgdmVy vMlcAXixDMeqN709VRRkxSm bDmPiaTWyC5ctsxARNT9yTp wvdGQ+IKSxKRY6nEjmCAxcI CVtoU1g SDHvU7y8HyUuKiL0MUarT0J jvhP1DFYmuHQvCROopXIDvA 3wxpmls0cemookNkJtCFCdX Vg6POn9 AEUrrJpzEoPoKKA4GvR4ZAV 0lCBxzG4olGzteyuugU2uHn c+RklOOjwvdGQ+QVCfVWH0k WxlPSdw FOYdfH2jLTVjR5x8ZnBdOiI 8EFnrK8LyunB8YZAtwHLmWK EqpJWUiY3mpumtk3jgrhkgT zAwMDAw ITz4NAx9JMOmiRbtTwQjNFJ 7TzO7FYC5qIOmmB1vkWqydi rawT9nBgc+TVJOOjwvdGQ+P HRkIHN0 gLzdFIesUHArpL4lETKmS9u 1QmAuVzU5HLixN8TddfL1JP YpnYDrTIAwqAPZpK9puenhz 2xvcjog GfQaFINbXMd2WUt1KITrwZu rVbOgQDQ3FfN6BMO7hQVzxM 6ugUfzjjpfuX3yPml+UGF5Z RA5YT50 DA83V5LoJdrrcEUpaBF+PHR hYmxlIHdpZHRoPScxMDAlJy TshJitST1jIg8hDOVnPGAge GxhcHNl OiB (more content not included)... [facility] Coding Summaryon 03-29-2024 Coding Summary HTMLBase 64 FznbgzunIHu5jUv+PGhlYWQ +ZT3ORTSgF19zbSQedV3kJ1 NMTElOSywgQVBQTElOSyIgb yDjTJ6ggXOeAKLn IC8+JQ1zCJAdCqzcaIFjh5X 4dQN0T23mtz7eCMuphCM0JZ EwHiEazfstk2otsUo7UNlxM mluOyBt HYLrgF82UKM7uY79Pu70iAT ukQAjl5qreUy1HbXdNMIbMK D0dPyqDAlic8PpCRDpS75tx QQxb7I9 IGYjnGjbyLNcWrMagNR2tY7 iPQfpepoei8lsqppiVwh5uh 28hKYxn7Q2aXE5C7HaspH8A GJvbGQg WirjqGKXwC3hbcinm1qztwt uFdEyPHFrLYj6VAs9DKAsnH vxZfBtDP18POY9YNZlbeEgJ 2FsLWFs oJqlFxU2p3Q9Mx9XI2ZNKkd lO7KXDUSLFJoluGS+PC90cj 41R1GvXypgMbt0PTVxWJU1k KC9bI6h SYQyRLvjr6O2qZB5P4VpefS blv6ba0sbFYPmHYqlJ17sjU Bho2F9RWDlmUY0UKIakBeoY iBzaG93 Oyc+YSFnyAjfy7SjSktiq2j hd1ummHg5SxjlJRNazqHgnV zxQXI3h2OgFf3qQDScyQA8c XG4oM4c EyTuRhG3MRbgR974RpUfcUD gUurcG48oQ5SewFO+PHRyPj o0FNXtfSiaHE4oS6RwWJDok mctbGVm qSilIS2qBXZovotnTZUpeW6 mCOEeG2m5DaBzQzA8AVfhC8 VnMTBlqvdzSs18fT2nHjRaY iM8AMgj D1TxeeG5QXJitGBtYAojKFE 3U01xs7O0CVEgYWScEPI9aP V7bN8qwVjllnzxzFXskIyog mVydGlj WXhaGShtL854UDZmxHhzWuD vZGluZyBEYXRlOiAgMDcvMT AvMjAyNDwvdGQ+YSBeUVD0q WxlPSAn fVIuVRkjPb3ymWxgpHbkUL6 vKYMfnfxoBOKqnO0lIJGowA LpcIpnJS3bPBDvhkvbs920H iAxMHB0 AQNpqTPmC8QxbY0aDhPhEGD uMYViK7OjwXQpGLcnV185WO oxIiD1ZJKuzoRkU7EdYLGwx WduOiB0 b3W9Qj2Ki8DgwayuI4JxpVP rIaMqZebkUTz0X9EoMjooeH I+TE01QNBzQG26IDx4XBG2u WxlPSdi CMNsM4PdeU5iUfZwNZAzZUT kOyc+PHRhYmxlIHdpZHRoPS mxYJVjSjImlSzuKN0dFq2eR GVyLWNv kTgvfBMwDvDrt3gkTDPnOPg uCH6kiTeyU0NbsTT5ESAbd4 m8Rr82Q26aZ5JkrWL+PGNvb NL5fZB3 vW7jRhOqQtX5QSlkA990NfR rtJVeMbgdv2lvm9nqsGb8Ao C7TAUilnBxkQhyHIH3j8TwT m37U19u IHdpZHRoPSIxNSUiIHZhbGl fec2zwC3zRx3+XYDscTE3bY Q1bG6sHeIlTiN1RMtpW573A nRvcCIv Jwymd8rsy4zkqQu7BgBkVCO evjKnlPvgSHU3b6SbOw29Z7 ZldLuot2ByOcj6yx54rHBjh 1H5lFD9 Z6DvHZQprawllPKvmJhdLN5 lFLAdkdgoHTMxrL4rFLSyA2 b7FnXhHtD5UUjcL6IaolQ7M GJvbGQg WICumJYWcB8xpvikh3hvgul nWoTtAUFxKEy2GZa6AGAtpH kcBbHqSUD4UyF1WRT7fAApw X6ihCiz zckufR0uHlu+HTC6uSWgdVF OKK2xJmggnOA+ENJaNLB3gQ ykHTruKNZnqL8aYUAkW9a9D iAwLjA1 YHjlD6GfrbR4PTLqfLXnQVZ ekLMCcF2osupmf8xtmnhuGk ZmIAExTEz0DBe4YBRrxQkhB iBsZWZ0 AeO2QJP8zBYjnZ3vvKwgyca kgG5tTom+CwdxpUgdEMJ6NB u6K4WoHge2CSGnqPmzFJ3dt GFkZGlu Je9xwWejkUigIS4qYQZwoiu ql268OxBia5wiHABybDRrKP vxWCV4X13ye7S5NLJdUSYwJ HG8uQZ8 bB6zmQznkyemqKZtcQtyiqM iqNywGXukTGitV412BDNxuI ahRwIdEZz5R3NiIpc9ODEwm RcnTH7w xLGmIWewEd3rkGrznKmeOY1 aJNQwlczmc285PkZyy5okTN RtqXMkVTpvTGW3E13ho4I4L CMwMDAw DLY5bXM3kX8hlMmohyobjWP mdDsgdmVydGljYWwtYWxpZ2 76VGFnfCvpRcFagUy7Q6AiO cu3MOEn oJonOB4fvGHaUFpeXc6zgKm fmFrcRN4kIZXmhrdra724Fm Kxr8mmYBAhnZCrBRhkZDU8M 19jq1E7 WHFwOWGpMQB3kYD6aD4wmLa nbjogbGVmdDsgdmVydGljYW xdPElbA746FAFguNuxTeYjm GllbnQg JMshGWd5Z1DhCvqktAF+PC9 5YQPaHP85nDPyuWIde7dqsB s0GcDhAANqZPJ8fRcvVLjyk 3JkZXIt M28anZRyy3P3CJRnmVodhMJ tGpBanDG5iP0yIVebtckeu6 jstoapGkufe8qlrj91rU51A 29sIHdp ZHRoPSIzMCUiIHZhbGlnbj0 isO7nSu5+AUJzhKE3yBY1nU 4vFXJzAkF2ZBswJ321UaJun CIvPjxj g6cyz2zzfNv5XwX0HYOksyR szOvgJQA9b9EoMo00N83zEF dpZHRoPSIyMCUiIHZhbGlnb z2ktF5z Ii8+FUHvzOJ1sQH3sK9oYzT wYrT2EJoqW736MnPjcQKmMr amP33tK2FbtZN+GVAvBxy5M CBzdHls ZK9haAIbSIqhQw0cVJQ8XxW nCoBnXEcsX0VpDLHrdrbjsf iumUQ4XSIbAZRvsW52Mk8cf DogMTBw mKXDtR1wtxlel2axfzrqMjR iEBLsYQo1SYk0DFQtmEnbSr JvEVH9IdZ5DLF3iFLdhW2fe Glnbjog fT8oQ4JqFDXmfauxXx53gO6 nHhCcZhB3QVvzEhf+RFVSSV JXZ4DmFTpLDkxqDBtCME93M 4YcEvf5 DPPyoZvdNC4sdDIzCQcuIx8 idAovmLsaQS5yVVGuopduCR NfaP7jDHNdiKJddOtgQY0dO TBpbjtm r065ZwXpJHS7NCGtaMMvN5N taG1bGwXeSJGkPKOoJ6HksS NySSdjD622ZBstQeW1KERaq aIbD8Jl XLClvRafCiC3c6C6Uf7vON7 oLo4bJNX4AR73SS12jPEnm8 O5yKB3I1XeXVLcqdqrogsny XR3OYHd DQIeoP08jFNnXCdbUq2ce2I 5j002JFZeEPEysU72Zz3nsK qoYRCfiWLFqV9bgdrhb3moy jogIzAw WRZgZHl8KTv3DSXrlGkwSaZ iGYJ2SeU8KSL8nUFxeG8rdD xeomcjlU8sMlo+NTYgWWVhc wC4R9Mb Jrg7EHXwhJigNB0ukGLeZHv kMy5jtOtwzIzjPR7mPNNfhk eoFPFckU5iLLLgeEIupVolH Y2iIFSa slsif862NaPmYAG9OGSphNM zS7SucU8pBeKrWGGiPGEfI0 JzxQOmYOzsM145ARmnIfQ9F HZlcnRp S6WjKXXtsRioInC9g4J5Dn2 MNMwEFR38LJ59cSAyh7T8pH C1N2XxZGBtoxpwvjdkwKT1C DAuMDUw zI67wMGhVRmeFf3vp8Z3l91 1ERAcHMVhrM34Qb0orOghDX MikGKGyF9nymxnp1nqzfkaV zAwMDAw BCn6FPs0LASiwHhrIqIvIXU 6XbE5ICL9yFWfeL5viFqfin bdkO9qEij+MK5owtjtbcE5R S89WL21 C0JdTfxdrGUhpFK+PHRhYmx lIHdpZHRoPScxMDAlJyBzdH lcXE7gRr3rZHWwCPJyhZmfb HNlOiBj y5iqNHXtDHeqPR0rsExnL1J suMQ2VNFyk4m7Pn73B56aB4 JvdXA+EDNvuPL2gSL5lU6vO zAlIiB2 WIfaP559CzGbsZBjIaywe8s ih4rpdHk1FmXwJOKlkeXxlD reFTB1t5YqFx19U00hDCxgZ HRoPSIy IFKcYKMueQsnaw6ouG2fEm9 +RIUsuNV4fRF3aE2lPvSvYj B5AHlqN022WrDmfUOpXeptF 74bJ3Xf dXA+VFFpHhw3KTQfzMcdRA4 pwFYxMHwhLo5rRAN3InRuFz AjNLrfU9FxDFHyhqjwjuuga HD9LTIr KYPhlT80Cp3rkXqqRc4mINK dTGB2SQUptAHbH3RdzS0mYg GuUWWmQTQaI0IofLCwSLvtY 246IGxl RtI5IYEqbnVlD0SeOBRmaPl lEzR3x9B4Nu2BbXuwvMRmON 2lNgMiIYb5I0JaUyt3XCWeh PlzKV4b nZOlTLxtFg1mgQskiLuyZO8 qUGAhshdns130YmBea4gwFQ PboOLcXCqoJZC9X99lr5K0B CMwMDAw WIL6gQQ5wZ7flIlwdcpqqMZ mdDsgdmVydGljYWwtYWxpZ2 42FNLjwSgaJrQGZcj9B9WiZ eb6LELo tVgzPC5hfAIyZHvjEs3anNk lhLxpWW4yFUPnkapix385Yr Vbf6emTHAxxYGaWNupKUN8T 10ur2V7 HBMbHARpDXG8kBD3zG7khHs nbjogbGVmdDsgdmVydGljYW ucBGrcP400LYRzpJfoBl7NP el5V1Ye Etm3NBLxdKdjRA8gkMIrCGi yXa5ccYpulGuiUM9kXUCmlm vot335OyQul3nlVNJscHQrR GltZXM7 J44mh6Q4JETtNDHeVMR7uUE 6pM2raCxvwrwpjPVqyNyckz NksZhyTAqeLOwiC823XBKes DsnPlBh eWVyOjwvdGQ+YP32rp12P2T hSqjwCfw0SHMiFDJ2oBE3sF 3xJYCeVOsmt3V6yAN1V9Ppz zVvmk3u b2x (more content not included)... [facility] US Kidney/Bladder Completeon 03-21-2024 US Kidney/Bladder Complete EXAMINATION: US Kidney/Bladder Complete TECHNIQUE: Ultrasound of the kidneys was performed Grayscale and color flow Doppler imaging. HISTORY: Unspecified hydronephrosis. COMPARISON: CT abdomen pelvis: 03/19/2024 FINDINGS: Kidneys: Both kidneys are unremarkable with no mass lesion or hydronephrosis. The right kidney measures 11.1 x 4.4 x 5.9cm. The left kidney measures 12.6 x 5.0 x 5.3cm. Urinary bladder: The urinary bladder is unremarkable. Other: The prostate is prominent measuring 5.2 x 4.5 x 3.3 cm. IMPRESSION: 1. Normal appearance of the kidneys. 2. Resolution of left hydronephrosis seen on the 03/19/2024 CT. 3. Mild prostate enlargement. Final Dictated by: Nilay Mchugh MD Dictated DT/TM: 03/25/24 9:17 Signed (Electronic Signature): Nilay Mchugh MD 03/25/24 9:19 am Technologist: SHAY BRO [facility] Provider Orderson 03-20-2024 Provider Orders [id number] TGTIFF [facility] .Auto Diff 103-19-2024 Auto [place] % 13 % High 10-01 [facility] Comment on above: Performed By: #### 1 [id number], [id number], [id number], [id number], [id number] ####[facility] (DEFAULT)[address] [place] [address] Baso Abs# 0.1 x10 Normal 0.0-0.2 [facility] Comment on above: Performed By: #### 1 [id number], [id number], [id number], [id number], [id number] ####[facility] (DEFAULT)[address] [place] [address] Basophils/100 WBC (Bld) 1.4 % Normal 0.2-2.0 [facility] Comment on above: Performed By: #### 1 [id number], [id number], [id number], [id number], [id number] ####[facility] (DEFAULT)[address] [place] [address] Eos Abs# 0.1 x10 Normal 0.0-0.4 [facility] Comment on above: Performed By: #### 1 [id number], [id number], [id number], [id number], [id number] ####[facility] (DEFAULT)[address] [place] [address] Eosinophils/100 WBC (Bld) 1.8 % Normal 0.9-4.0 [facility] Comment on above: Performed By: #### 1 [id number], [id number], [id number], [id number], [id number] ####[facility] (DEFAULT)[address] [place] [address] Lymph Abs# 1.0 x10 Low 1.3-2.9 [facility] Comment on above: Performed By: #### 1 [id number], [id number], [id number], [id number], [id number] ####[facility] (DEFAULT)[address] [place] [address]57 Lymphocytes/100 WBC (Bld) 19 % Normal 14-48 [facility] Comment on above: Performed By: #### 1 [id number], [id number], [id number], [id number], [id number] ####[facility] (DEFAULT)[address] [place] [address] [place] Abs# 0.6 x10 Normal 0.0-0.8 [facility] Comment on above: Performed By: #### 1 [id number], [id number], [id number], [id number], [id number] ####[facility] (DEFAULT)[address] [place] [address] Neut Abs# 3.3 x10 Normal 1.5-9.2 [facility] Comment on above: Performed By: #### 1 [id number], [id number], [id number], [id number], [id number] ####[facility] (DEFAULT)[address] [place] [address] Neutrophils/100 WBC (Bld) 65 % Normal 44-88 [facility] Comment on above: Performed By: #### 1 [id number], [id number], [id number], [id number], [id number] ####[facility] (DEFAULT)[address] [place] [address] Standardon 03-19-2024 eGFR Non AA 58 mL/min/1.73m2 Invalid Interpretation Code [facility] Comment on above: Performed By: #### 1 [id number], [id number], [id number], [id number], [id number] ####[facility] (DEFAULT)[address] [place] [address] eGFR AA >60 Invalid Interpretation Code [facility] Comment on above: Performed By: #### 1 [id number], [id number], [id number], [id number], [id number] ####[facility] (DEFAULT)[address] [place] [address] Anion gap [Moles/Vol] 12.6 mmol/L Normal 5.0-19.0 [facility] Comment on above: Performed By: #### 1 [id number], [id number], [id number], [id number], [id number] ####[facility] (DEFAULT)[address] [place] [address] 33095 Calcium [Mass/Vol] 9.3 mg/dL Normal 8.9-10.3 [facility] Comment on above: Performed By: #### 1 [id number], [id number], [id number], [id number], [id number] ####[facility] (DEFAULT)[address] [place] [address] 18840 Chloride [Moles/Vol] 105 mmol/L Normal 101-111 [facility] Comment on above: Performed By: #### 1 [id number], [id number], [id number], [id number], [id number] ####[facility] (DEFAULT)[address] [place] [address] 36956 CO2 [Moles/Vol] 26 mmol/L Normal 21-32 [facility] Comment on above: Performed By: #### 1 [id number], [id number], [id number], [id number], [id number] ####[facility] (DEFAULT)[address] [place] [address] 28400 Creatinine [Mass/Vol] 1.28 mg/dL Normal 0.90-1.30 [facility] Comment on above: Performed By: #### 1 [id number], [id number], [id number], [id number], [id number] ####[facility] (DEFAULT)[address] [place] [address] 63861 Glucose [Mass/Vol] 104.0 mg/dL Normal 74.0-118.0 [facility] Comment on above: Performed By: #### 1 [id number], [id number], [id number], [id number], [id number] ####[facility] (DEFAULT)[address] [place] [address] 53773 Osmolality 280 mOsm/L Invalid Interpretation Code [facility] Comment on above: Performed By: #### 1 [id number], [id number], [id number], [id number], [id number] ####[facility] (DEFAULT)[address] [place] [address] 65262 Potassium [Moles/Vol] 3.6 mmol/L Normal 3.6-5.1 [facility] Comment on above: Performed By: #### 1 [id number], [id number], 3705304, [id number], [id number] ####[facility] (DEFAULT)[address] [place] [address] Sodium [Moles/Vol] 140.0 mmol/L Normal 136.0-144.0 [facility] Comment on above: Performed By: #### 1 [id number], [id number], [id number], [id number], [id number] ####[facility] (DEFAULT)[address] [place] [address] Urea nitrogen [Mass/Vol] 15 mg/dL Normal 8-26 [facility] Comment on above: Performed By: #### 1 [id number], [id number], 7827882, [id number], [id number] ####[facility] (DEFAULT)[address] [place] [address] Urea nitrogen/Creatinine [Mass ratio] 11.7 mg/mg Normal 4.6-16.2 [facility] Comment on above: Performed By: #### 1 [id number], [id number], 8951462, [id number], [id number] ####[facility] (DEFAULT)[address] [place] [address] CBC w/ Auto Diffon 4 Erythrocyte distribution width (RBC) [Ratio] 20.1 % High 11.5-15.0 [facility] Comment on above: Performed By: #### 1 [id number], [id number], [id number], [id number], [id number] ####[facility] (DEFAULT)[address] [place] [address] Hematocrit (Bld) [Volume fraction] 34.7 % Low 34.8-51.9 [facility] Comment on above: Performed By: #### 1 [id number], [id number], 5625736, [id number], [id number] ####[facility] (DEFAULT)[address] [place] [address] Hemoglobin (Bld) [Mass/Vol] 11.2 g/dL Low 11.8-17.7 [facility] Comment on above: Performed By: #### 1 [id number], [id number], 5391652, [id number], [id number] ####[facility] (DEFAULT)[address] [place] [address] Man Diff? Auto Invalid Interpretation Code [facility] Comment on above: Performed By: #### 1 [id number], [id number], 4806500, [id number], [id number] ####[facility] (DEFAULT)[address] [place] [address] MCH (RBC) [Entitic mass] 30 pg Normal 24-34 [facility] Comment on above: Performed By: #### 1 [id number], [id number], 7711150, [id number], [id number] ####[facility] (DEFAULT)[address] [place] [address] MCHC (RBC) [Mass/Vol] 32 g/dL Normal 26-37 [facility] Comment on above: Performed By: #### 1 [id number], [id number], 4191307, [id number], [id number] ####[facility] (DEFAULT)[address] [place] [address] MCV (RBC) [Entitic vol] 93 fL Normal 81-100 [facility] Comment on above: Performed By: #### 1 [id number], [id number], [id number], [id number], [id number] ####[facility] (DEFAULT)[address] [place] [address] Platelet 387 x10 Normal 138-427 [facility] Comment on above: Performed By: #### 1 [id number], [id number], 2790913, [id number], [id number] ####[facility] (DEFAULT)[address] [place] [address] Platelet mean volume (Bld) [Entitic vol] 8.2 fL Normal 6.3-10.2 [facility] Comment on above: Performed By: #### 1 [id number], [id number], 9518138, [id number], [id number] ####[facility] (DEFAULT)[address] [place] [address] RBC 3.73 x10 Normal 3.70-5.30 [facility] Comment on above: Performed By: #### 1 [id number], [id number], 5677493, 9615142402, 86891470 ####[facility] (DEFAULT)[address] [place] [address] WBC 5.1 x10 Normal 3.5-10.5 [facility] Comment on above: Performed By: #### 1 [id number], [id number], 0375817, [id number], [id number] ####[facility] (DEFAULT)[address] [place] [address] CT Abdomen/Pelvis w/o Contra ston 03-19-2024 CT Abdomen/Pelvis w/o Contrast EXAMINATION: CT Abdomen/Pelvis w/o Contrast, 03/19/2024 8:01 PM EDT HISTORY: Abdominal/flank pain, stone suspected COMPARISON: None. TECHNIQUE: CT scan of the abdomen and pelvis was performed without IV contrast. CT dose reduction technique was used, including Automated Exposure Control. FINDINGS: Limited evaluation of the lung bases demonstrates mild right basilar atelectasis. Limited noncontrast evaluation of the abdomen and pelvis. The liver is mildly enlarged and steatotic. Normal gallbladder. Negative for acute splenic or adrenal abnormality. Negative for acute pancreatic abnormality. Left perinephric edema is identified with mild left hydroureteronephrosis, a 4 mm stone is seen in the distal left ureter. Normal urinary bladder. Normal prostate size. No bowel obstruction or bowel wall thickening. Colonic diverticulosis without CT findings of acute diverticulitis. Normal appendix. No free intra-abdominal air or fluid. Negative for pathologically enlarged lymph nodes of the abdomen and pelvis. Small fat-containing inguinal hernias bilaterally. Negative for acute superficial soft tissue abnormality. Degenerative changes of the lumbosacral junction without acute bony findings. IMPRESSION: There is a 4 mm stone seen in the distal left ureter with mild left hydronephrosis and left perinephric edema. Final Dictated by: Cheng Dunbar MD Dictated DT/TM: 03/19/24 8:31 Signed (Electronic Signature): Cheng Dunbar MD 03/19/24 8:33 pm Technologist: Wero SHELLEY [facility] ED Clinical Summaryon 2023 ED Clinical Summary [facility] Emergency Department [address] [place] [address] ED Clinical Summary PERSON INFORMATION Name: GURVINDER BLACKBURN Age: 58 Years Sex: MALE : 1965 MRN: Acct#: Visit Reason: Flank pain; LEFT FLANK PAIN Arrival: 03/19/2024 19:34:59 Discharge: 03/19/2024 22:14:00 LOS: 000 02:40 Check In: 03/19/2024 19:34:59 Checkout:03/19/2024 22:14:00 Address: [address] [place] [address] PCP: Dev Perla DO PROVIDER INFORMATION Provider Role Assigned Unassigned Daysi Silva PA-C ED PA 03/19/2024 19:37:54 Leonela Aguilar ASSISTANT BROKER Nurse 03/19/2024 19:40:29 VITALS INFORMATION Vital Sign Triage Latest Temperature Tympanic Temperature Temporal Artery Pulse Rate 81 bpm 72 bpm O2 Sat 100 % 95 % Respiratory Rate 18 br/min 18 br/min Blood Pressure /86 mmHg /86 mmHg MEDICAL INFORMATION Medications Given: Medication Dose Route ketorolac 15 mg IV Push ketorolac 15 mg IV Push tamsulosin (Flomax) 0.4 mg Oral Allergy Information: Keflex PHYSICIAN DOCUMENTATION DISCHARGE INFORMATION: Discharge Disposition: Home Discharge Location: Home PATIENT EDUCATION INFORMATION Instructions: Kidney Stones, [id number] Follow-Up: With: Address: When: Alfonso Schaefer MD [address] [place] [address] [place] [address] Within 2 to 4 days With: Address: When: Dev Perla DO [address] [place] [address] [place] [address] Within 3 to 5 days DIAGNOSIS: 1:Ureterolithiasis Patient Understands: Yes - Patient/family/caregive r verbalizes understanding of instructions given Comment: [facility] ED Patient Summaryon 024 ED Patient Summary [facility] - Emergency Department [address] [place] [id number] PATIENT DISCHARGE INSTRUCTIONS Patient Information Name: GURVINDER BLACKBURN Age: 58 Years Date of : 1965 Reason For Visit: Flank pain; LEFT FLANK PAIN Arrival Time: 03/19/2024 19:34:59 Primary Care Physician: Dev Perla DO Attending Physician: Tank Lazcano MD Comment: Visit Diagnosis: Diagnoses This Visit Flank pain (341236171) Ureterolithiasis (N20.1) The Pharmacy at [facility] is open Wednesday through Wednesday from 9A to 6P and Wednesday and Wednesday from 9A to 5P Prescription Information: If you have been given a prescription for narcotics, seek immediate medical attention if you have any difficulty breathing or any sudden status changes such as confusion and sleepiness. If you or anyone you know is experiencing suicidal thoughts, mental health, alcohol and/or drug addiction problems; contact the [facility] 12/04 Crisis Hotline -Tcsq 5YIWW dt [phone]. If you received any narcotics, sedation, or any other medication that causes drowsiness for the next 24 hours, unless otherwise directed: ? Do not drive a car. ? Do not operate machinery such as power tools, lawn mowers, drills, sewing machines, or stoves ? Avoid alcoholic beverages and drugs for allergies, nerves, or sleep ? Do not make important personal or business decisions or sign any legal documents With: Address: When: Alfonso Schaefer MD [address] [place] [address] [place] [address] Within 2 to 4 days With: Address: When: Dev Perla DO [address] [place] [address] [place] [address] Within 3 to 5 days Medication Information: The exam and treatment you received today in the [facility] Emergency Department were for an urgent problem and are not intended as complete care. It is important for you to follow up with a doctor, nurse practitioner, or physician?s assistant broker for ongoing care. If your symptoms become worse or you do not improve as expected and you are unable to reach your usual health care provider, you should return to the Emergency Department, we are available 24 hours a day. For those patients who have received Radiology results, the interpretation of your X-ray as given to you by our Emergency Department physician is only a preliminary report. The Radiologist will review your films and if there is a change in the diagnosis you will be notified by phone. Please make sure you have provided a working phone number so we can reach you if necessary. In the event that you had a lab culture while you were a patient in the Emergency Department, you will be notified by phone if there is a need to change your antibiotic. Please make sure you have provided a working phone number so we can reach you if necessary. [facility] Emergency Department has provided you with a complete list of medications post discharge. Please inform your head insulation board saw operator/provider of your visit and for further instruction on these medications. Any specific questions regarding your chronic medications and dosages should be discussed with your primary care physician(s) and/or pharmacist. New Medications [address], [address] [place] [id number], [phone] acetaminophen-hydrocodo ne (acetaminophen-hydrocod one 325 mg-5 mg oral tablet) 1 tab(s) Oral (given by mouth) every 4 hours. as needed as needed for pain for 2 Days. Refills: 0. ketorolac (ketorolac 10 mg oral tablet) 1 tab(s) Oral (given by mouth) every 6 hours as needed for pain for 3 Days. Refills: 0. ondansetron (ondansetron 4 mg oral tablet, disintegrating) 1 tab(s) Oral (given by mouth) every 8 hours for 3 Days. Refills: 0. tamsulosin (Flomax 0.4 mg oral capsule) 1 cap(s) Oral (given by mouth) every day for 5 Days. Refills: 0. Additional medications on your home medication list not specifically addressed. Please contact the ordering physician if you have questions about these medications. allopurinol (allopurinol 100 mg oral tablet) 1 tab(s) Oral (given by mouth) 2 times per day. aspirin (aspirin 81 mg oral tablet) 1 tab(s) Oral (given by mouth) every day. losartan (losartan 50 mg oral tablet) 1 tab(s) Oral (given by mouth) every day. pitavastatin (Livalo 4 mg oral tablet) 1 tab(s) Oral (given by mouth) every day. Visit Information Allergies: Substance Reaction Symptoms Type Comments Keflex Hives Drug Vital Signs: Vitals and Measurements this Visit (last charted value for your 03/19/2024 visit) Vital Signs This Visit Temperature Oral: 36.7 DegC Peripheral Pulse Rate: 72 bpm Respiratory Rate: 18 br/min Systolic Blood Pressure: 124 mmHg Diastolic Blood Pressure: 84 mmHg SpO2: 95 % Oxygen Therapy: Room air Measurements This Visit Height/Length Measured: 180.34 cm Weight Measured: 112 kg Weight Dosin.000 kg Body Ma (more content not included)... [facility] Extra Redon 03-19-2024 Tube Collected Yes Invalid Interpretation Code [facility] Comment on above: Performed By: #### 1 [id number], [id number], [id number], [id number], [id number] ####[facility] (DEFAULT)[address] [place] [address] UA Lxkaz8uh 03-19-2024 UA Bacteria Trace [facility] Comment on above: Order Comment: Urina lysis Microscopic order added on by Takeacoder Expert Rules system. Performed By: #### 1 [id number], [id number] ####[facility] (DEFAULT)[address] [place] [address] UA RBC 3-5 [facility] Comment on above: Order Comment: Urina lysis Microscopic order added on by Take[employer] Expert Rules system. Performed By: #### 1 [id number], [id number] ####[facility] (DEFAULT)[address] [place] [address] UA Squam Epi Rare [facility] Comment on above: Order Comment: Urina lysis Microscopic order added on by Take[employer] Expert Rules system. Performed By: #### 1 [id number], [id number] ####[facility] (DEFAULT)[address] [place] [address] UA WBC 0-2 [facility] Comment on above: Order Comment: Urina lysis Microscopic order added on by [employer] Expert Rules system. Performed By: #### 1 [id number], [id number] ####[facility] (DEFAULT)[address] [place] [address] UA w Culture if Ind Standard on 03-19-2024 Breakpoint UA Normal [facility] Comment on above: Performed By: #### 1 [id number], [id number] ####[facility] (DEFAULT)[address] [place] [address] Color (U) Yellow Normal [facility] Comment on above: Performed By: #### 1 [id number], [id number] ####[facility] (DEFAULT)[address] [place] [address] Culture? Not Indicated Invalid Interpretation Code [facility] Comment on above: Result Comment: Resu lt created by rule GL_MAGR_ADD_UA_CULT Result created by rule GL_MAGR_ADD_UA_CULT Result created by rule GL_MAGR_ADD_UA_CULT1 Performed By: #### 1 [id number], [id number] ####[facility] (DEFAULT)[address] [place] [address] Glucose (U) [Mass/Vol] Negative [facility] Comment on above: Performed By: #### 1 [id number], [id number] ####[facility] (DEFAULT)[address] [place] [address] Ketones Ql (U) Negative [facility] Comment on above: Performed By: #### 1 [id number], [id number] ####[facility] (DEFAULT)[address] [place] [address] Micro? Indicated Invalid Interpretation Code [facility] Comment on above: Result Comment: Resu lt created by rule GL_MAGR_ADD_UA_MICRO Performed By: #### 1 [id number], [id number] ####[facility] (DEFAULT)[address] [place] [address]842 UA Bilirubin Negative [facility] Comment on above: Performed By: #### 1 [id number], [id number] ####[facility] (DEFAULT)[address] [place] [address] 42349 UA Blood SMALL Abnormal NEGATIVE [facility] Comment on above: Performed By: #### 1 [id number], [id number] ####[facility] (DEFAULT)[address] [place] [address]9866 UA Clarity CLEAR Normal CLEAR [facility] Comment on above: Performed By: #### 1 [id number], [id number] ####[facility] (DEFAULT)[address] [place] [address] UA Leuk Est Negative Normal NEGATIVE [facility] Comment on above: Performed By: #### 1 [id number], [id number] ####[facility] (DEFAULT)[address] [place] [address] UA Nitrite Negative Normal NEGATIVE [facility] Comment on above: Performed By: #### 1 [id number], [id number] ####[facility] (DEFAULT)[address] [place] [address] UA pH 6.0 Normal 5-8 [facility] Comment on above: Performed By: #### 1 [id number], [id number] ####[facility] (DEFAULT)[address] [place] [address] UA Protein Negative Normal [facility] Comment on above: Performed By: #### 1 [id number], [id number] ####[facility] (DEFAULT)[address] [place] [address] UA Spec Grav 1.025 Normal 1.001-1.035 [facility] Comment on above: Performed By: #### 1 [id number], [id number] ####[facility] (DEFAULT)[address] [place] [address] UA Urobilinogen 0.2 mg/dL Normal 0.2-1.0 [facility] Comment on above: Performed By: #### 1 [id number], [id number] ####[facility] (DEFAULT)[address] [place] [address] Urine Source Clean Catch Normal [facility] Comment on above: Performed By: #### 1 [id number], [id number] ####[facility] (DEFAULT)[address] [place] [address] Coding Summary 09-16-2023 Coding Summary HTMLBase 64 EkkdcgdcVOj3fKt+PGhlYWQ +FR7FZMPuK83yeFJalC5nO5 NMTElOSywgQVBQTElOSyIgb wLhYM6ohMQvOXNe IC8+KY4yIYQpZwzaaFQub5Y 8zAV0E10zep3cIJhztWC4ZS QkAqIddpufs7wmxBd6OKjxL mluOyBt VYLikE01EGM8iV77Ug85iIE vlBSck5wkzNz1WzKqVOYmJU F8hWgcMHrhi0HrSBZvP58nz XYbv7K5 TBFxoCjcnCWfLgMyvNE1nR5 vICpyqcwrb8vdpldlCvy0cx 39uONeq6K5gEM4J3ZjxoL9U GJvbGQg VzvhsMDUwX0bsgozq2cfzlq sBeKsWVRtMRu1DXe4TUYuuI mjPpTmHX87TLY3IETijlEuJ 2FsLWFs sLbnHlU7s5D3Qo8IM0EJItv nS9UNJDWDSNhdkEF+PC90cj 09Y3OdYdsvBie9VHWaZSM2o LR0kN9n YRNdWMhrn4O8yXW8Z0RuzaT cdu0hd2irEYGuEBqrD46rtD Eqi6L3EVKtxPD4ZUEhlVjhD iBzaG93 Oyc+LEGyjWtga0IbEdnqg2q hd2wduIq6MdosIPQxfjFxdN okHBS7d4YoBe6nLQFgoJA8z YN7sD5z YwMoEwL9USvtS187OcFgqAD aEgtwY95gS9OayID+PHRyPj g9HDHekIolYO0fL2KvBGNnm mctbGVm yNizUN1nTZAeeyxqCOJqfJ1 fYYLuS7x3IpGpDbT9ZStwQ3 InXREvpcddFn61oH3jAnKzM jS5KQhp O4GuckV0HRJglHZcKSxeBQF 3E49dl6B1KWDzSUCzQXA2cH O0rR5ctNtfvirlqMQbeGcxb mVydGlj BPmvSHrlY808HVBdyOhiFjV vZGluZyBEYXRlOiAgMTIvMj gvMjAyMzwvdGQ+UKXeUMO5f WxlPSAn dYPrOZseRx9gsKvuvStxLP3 dGWCqmcduKGTtlV4kMFFzqA DquVeaIW8dWZAuzvkzq723I iAxMHB0 FRXahPXeC6RcyW9oSkSiEEN fWRDcA4ZjjHDxPEseG956TY tsWvR5NRQsvjJzS9RrVSYij WduOiB0 y8K8Yn9Zf0RusjjlW2WwcNU nTtJkFhdiZBl1J5KcSmbhuX I+BL03VOChAY69BXe3ZSI5z WxlPSdi GRBvM5SjgK9xTmIrFJRvQTH kOyc+PHRhYmxlIHdpZHRoPS epYVOqPaWqwUelGN5pSk2oT GVyLWNv gTxmfNNtPgYad6odEFOwCLy fQI2yiEfaM0CutTO1KZFcg2 n1Et59S49sH0PtzAF+PGNvb XM0lYS8 uN7zWiBmOlJ1TGdgY906QzQ urZMcXuipu1ivo8exlLt5Za I1FSFwceBpjVizWMQ9n3SbB o31Y24h IHdpZHRoPSIxNSUiIHZhbGl qtv2elZ8kFw3+AVQzaUL0mN F7lB5oPwGxShY7IVaiF936X nRvcCIv Mgkkx8zdm3lduJt1ZwQsQYG tmrAajRhoBIT9g2LmOh85A9 SvfKnhf9AwYwx2jn95lACmz 3N5iJZ6 R1HiXKEpwtjebQClyGdjTF8 jLDFbejmfHJPvcN2mPNTgR3 r3SvQaNdK3ITfbR7ClbwL3W GJvbGQg VZVrcREWyA9zwihpq6vmibu sNfSqNQFgSMc2QDw9FUGsdE lpNdQiYMM9QlX8MMV7uTPbk H6sdYak mzcxpH7vVck+YKT0rYTmpWB OOL8bGosvnTB+IAHjFUX8tY wgZFbjKFKwsP6qTSTyE8l2T iAwLjA1 YCafK2CnruS4JHNnfMOaOGH qoNWQsU5umfbyt2nfocdaRe CpGBGhPKb6KCb2OPJiaKuyN iBsZWZ0 UwM7AVZ1oCQonS3wuYgwjsg ihS0iYxm+NbngwOgjOHV8NR f3Q8NlCwt4ELCpzVygKW4mq GFkZGlu Lt8fgVuoxDuuZL0eYELpduu yb249GaKrm7wyXSHoeDCnND cxOGX4Q00kx6R6JXQzNWAhZ EI4uWA5 bB9zzGoojgsqrJErpYmrgvB vkEelEKqnMZznE754RLCjkB tmOaUbGTm1G6ZtGcm0ZYOug BmfVM1v iIQmZOcrFu6kfZdjlBubOK3 oSPLyxxlvb868YgOzy8lrDR TjkVUkKVsnLTM5O62kv7R7I CMwMDAw KQM0lCY6mB5kqZwrdhprcFG mdDsgdmVydGljYWwtYWxpZ2 52FHTxeEpkVoFipEj5W1DwF mh8JDFx hHmfGD5efYFaZGslAk8nfZa wqXaiDL2gRWYvkpxtw810En Agm0haCLIctNJpWJufQVE8J 44fp8Q3 SHMdPTClGSS7aUQ2eX3gmMn nbjogbGVmdDsgdmVydGljYW ukABujJ381PDCllXmvDaRrj GllbnQg XWqvUQv9F9CmJyldrWS+PC9 3GWGhQV80bHUeqKEfj2dgwW c9MbSgVTYxHFM4dDveDXhfb 3JkZXIt E51ofUJub6S1CXApdNuqcEV wEyPbwIQ8eL9cEPimlxamp7 kafcwlMboix7gkta06vB09O 29sIHdp ZHRoPSIzMCUiIHZhbGlnbj0 ieO8eKi9+LFSbqGZ1xZW5dZ 0xFLTlHcL9LJlmM413BjXez CIvPjxj j0lsg4jcpRw8UrT4PWHjzxG sjCefSKP7l5NyLp25C73bWI dpZHRoPSIyMCUiIHZhbGlnb t7nhI2x Ii8+ISRllSB3yDE2rY6zGeR tUsB4QTtdE647XdYvzMStEa mwK60dM5TlkAW+LBTfUyk6O CBzdHls PO2onKOiHCrqBe6iUKP3TjD pZzOqWNilX5DmTTUvkviqfl cbhHD8JOFeSCKsfM57Uc9kq DogMTBw lEGBxW5xvkwrf0lqkzqeFpN xBZAcOHk1ORj2TLUhlSuiZh MiEGB2WoR3SLZ4nSUxlW1km Glnbjog zY7jX9UyHFErmntaJv73eT6 tHyGdQeI5DJkzLhw+RFVSSV TYW7KzQRsBKsptXTkOLK63B 7GcUid5 XVMzjDkiCN9gdGHuYVjtJm5 vjEkxwZvtYN9nCJBsdzmeJO IusY2fNONjbTIjuVfpLS3aH TBpbjtm k316BiBsJLJ8EYUmeVMkT3R jqE9tYpOjVXMaWEQgF4GfsN ZpUOtiY418EYbgCjY9GMVzg qIvW4Kk ZQKrbOfuQzM4w9V9Gp2zLR2 nKz8wYGD3MO18MM97lWPde5 Q1xUN3D7BvDCYasjimnrqfz LI5MYDh TUKtmE66dCSnTMzxAv5ml3W 5h821LCIrWRJsqL05Tr5zrV ixGREjuJFVtN9cwqihh0cax jogIzAw PAKxHBl0KAy3NYKlzQegAxS eGCW2AmA4NVY4mTAkrF2xjN jepmnwqV0jFme+NTYgWWVhc xD3C8Hp Atd9KWHurBwwFR3foFDrRUy aZy7xnSytxXpiHY1hAICwwq osVCUqrE9uAOHmiPSxfYsiG U1tMLZh sbity097TcVqAFI8OGHbyFU nY3KpuQ2bEoOxJNXiPABdU9 SyeZLxJDryI801PFywIuW7F HZlcnRp L4VfVUVvtNlaHwJ5e3N5Jo5 UVRmQOV82ZI40eAWvw7J3nH L5A4SiKTKrlflbzjvuyRP3Z DAuMDUw dZ47eEKlTMkrZb5az7K3a30 4VDQgGSMgoB47Oh2lqUyoMN SwtXCImY8fztxwi9pqzawbA zAwMDAw LVd9XKb0PZZlnGggWcMlLIF 8QtK7TXX5uWUkqV5hgYzszp dwkV7tRfu+Y0L9hKS1uQXxo CBpbiBh IEJlZDwvdGQ+KT80sa40R3X bLzkcVga4CRHdGHZ0aMT4oB 0xPNZhFVsql5O7zXU1F8Nzq dRfgp6m u5aiXFFdNNcyF61oyIWiy3E 8CKBanZV7PSGiyTeyBqGgeC 93Oyc+BCVxkEvkd1CdMdztd 8lpd5id tQk7QgMmSUVutpOacJbrRLL 4f4GkYu50X42tYUqxHHHfCK NzMVBpFHNmoLijof8hkV5gX i8+PGNv hQA7rQN6wV8jEvGtQrM1EAc aT750QjIuyVRxSkpjl5ryv5 oelQt6YxLyDYDtfhEfiPdwL EV3j5Te Pi70A2WbfBdrr1FcLfj7or0 7gSRqj3T6jOH8Y2GhTGGass zmfXJdrKnrRO1dGXBoiyraP BKcsO4i AVSrG2y8PsDvOtD9ZIfnH2N mxrY1XTUxkQJwEJQrwIUFvI 3ikotqx1ovxdczRyBhFDDmC Vy8JLy6 QKUogWjcQvAnKPW0LuE2KOW 5qQUxrJ3anGduazyscU8wEa c+PAi5d2gvyKNfVP4hjJA0Q Z90GF73 fVBgm2A1sAC2A3QyTWFfeue vdzgmyCT1IGWtJKLerT93Lk 2kaXknAt9qHZAmCQK0NLRjv QJiC5Io gT2rHtFcBSZpBIRdA1CugUP dHQrwW656GGtxKsZ4XAXigv SrB6XzDPXaaKmvHcM0o5F8P c4WZQ78 GK85RQ67bZEuj8R1jOB0Z5B aNWHtmqovtxpztIK7DKTeLT EqiR17Qx6ixBfjUx6gELDiL XA7CWQq xXZqA6WzvT1mOvGqUBVuUEA vX8DtuSThZCifH532ZMaeWw Z6WHTsmtYtG3XaOYDpiDliU zZ5i0P1 Or6NEj40YQ14GO47bXVdx2X 0cPA2F4FhBWZbkigirwhzmY O2LXGqFXWdsL38Ke5kmOhhT v3nFFGj NMO8PAXbdIUmO6KddU3nCwP kFQZjLOJgU6DmoGWqITnvX0 21DKetIyB6LXWdmlGtY7FzU WFsaWdu BsZ4z4S3Bp0ONIcbmcc0N2S kPjwvdHI+RT88NLHvWU29lN KrfMZqp1rbnYd0JgSgLAYjL CS8dCzt PSd (more content not included)... [facility] Coding Summaryon 09-15-2023 Coding Summary HTMLBase 64 VxpjwioiLUa6aLu+PGhlYWQ +WE6ZIFNlY87bxFUzxC4sW9 NMTElOSywgQVBQTElOSyIgb qAjKV1zwREhWBVs IC8+JL9cZEYfKhkmpACuv7R 5tQV1X01ebx8wJIbaaVI0SW YbFnCihwiyh4sqrUp7NUojR mluOyBt XANmpS76JFB4yK68Pq17jNE wwYQqb4fznXi7MmRaSFMxHM F7dAuiFNkms0VoZERaG41na LNwc5L5 XQKzzOfzdRSwJnZdhLI3iW1 yFTzmaitgm0quaokuKcq0sf 50gASoz8M6eZM1X5DttxH7Z GJvbGQg RnbzyUGWjD8grliic7rsgpg zNvFdTBYmODt4YBs7SUQhlF kjQnCaQK61JXQ5OFDreeRqP 2FsLWFs nPyxLoN8q0S9No7MH4SCEpb vP5IJSKDAVOixbAQ+PC90cj 28R9PzAhizSny6WGNhMSH5q PZ7xI4y DKZtOGvhe1S1lBW3L4HoooE jzn6by8qmNWZkVPpvZ93fbO Frj2L9WIVsyUR7YXLdsGipW iBzaG93 Oyc+PWCxjFgbx7ZnAcgmy9a js9vxfWd8ZfxpPMEdefLhkW hgMQM4v0ZaVr4bDFYnkUM5f XS0yO2a DpIkChQ5ZQagL013BfRnyHQ kTkkaU30fJ6McqLS+PHRyPj h0APLtfJnxYA5mA8QlKDIxw mctbGVm uYkuNO8jGFHlgbihXHRltP9 gVIKaB4i7VuZaHxP9EXyzT8 XdPFQwtkkdLw46aU1nXoHrA vF4CQym V5VpwaM6OWPhxFRjNGejHSI 7D53nx8B7RMRbUEFuPBX4hO F1dA4htIdmxeqluYLwvRxrd mVydGlj MGtqFXguK463DZGsuZovGoJ vZGluZyBEYXRlOiAgMTIvMj cvMjAyMzwvdGQ+PJKqAPR8a WxlPSAn zTEfMAdpDh7kpEdlpFobWS3 gGMIzvhvjAEZglD2qYMAauN QsaYunWH9qXCYekhrpt696E iAxMHB0 KUIwyMDhZ5LytZ2jDbDbQEP uMDJpU3BzdIMoHFabC870PT csSyN8WLMzmxWuE9SjUNClg WduOiB0 e4K7Ab6Dj6KiwpjsH9JovJO kXqWtHveySDm4I1XqMexkzG I+PO56CXUjDC76SNf3PRU9i WxlPSdi IAEwH2ZwcV3uUvMoOGSvAFB kOyc+PHRhYmxlIHdpZHRoPS ujFGDnNhQhfLduWH2eHm9uU GVyLWNv gTplpSHpWfViu7utXMNuUOy eFS9ntJiiT2EggQY1TGCxa3 e3Ni43P65rF5JdmVY+PGNvb NK9xEO4 iJ8sHxXxRkT2AXnlE815XtV syIXoIivst4vhp0eenLg3Da I0VZUbuyJkaThoTPQ4o7CuS r73P64g IHdpZHRoPSIxNSUiIHZhbGl wsg9khP8nNg1+DLDqoSM1tQ M2kA2vPiJuUuQ5GOidS956R nRvcCIv Leleb7ojr4himLr9DnGnKLO ueyGnlFuoCSE3x6QfNj62T4 DciJdiq4OrQvh4iv37iWByf 9W2pUS2 P8KgCOOyyolcpLLerIabIT6 kZSBwknagZOHeeM8uLTQxV9 m7VhQlHqR3LJkmZ7IjjdE0D GJvbGQg HWJwzXIGlD7prxvpx7reddn fZdWcIULjZGe0FNf6UIDjkJ mmNoOoHGN0CvF3AWE0yKLvk L6ecBnc rpupuR2kWqz+HEO4eHQtoEW OVZ6iLnophYF+GZPkPHO7oT zaVKhuUDSbpK0zQVAlJ5x7R iAwLjA1 QHtjE8ZmumD7VUSzbKPlKAP kqTCFaY7gsmbax9spqwhcBa GgMJVzIEh4GVe6IOFkhSvcO iBsZWZ0 QpO3JGB9rKImrH5stOuynax eaK6bNle+PvrunFxzXCL2AJ j4B0FjPty5GGJoyTnuQI9bf GFkZGlu Ws5tlYwnjJocDV7rUDIobeb kp454IlTtw5pyNXNasHIdYY pzCMU4W79mc5L8GQRlLRVyA BC1pMF9 eY1qtBewnqqwgUPtnZuxmlE vlMhgTMwsNXgsS919ZNNghV umTgJtVCj3I4UtBsl2NLQqy TxxMM8c jHGtITfpPj7jtFlztZybBU0 pOCLrizahp883AtYkd1xnKO KwmRAdFFkaWWK1I50il4R1Y CMwMDAw MKZ6aXQ1fP4ciUfhqujhwIX mdDsgdmVydGljYWwtYWxpZ2 98VYQqpEplAoKvfCj2K0UcH jj8XMOd pEdtHG1wmLIiSOflYv5mxKy caCxdDM4bEMPrfyvlt844Va Txc5pqXMHrxIZhWNioGIR9Z 32gp1E2 QMUbWZPpUVE2xNW2qZ9akJs nbjogbGVmdDsgdmVydGljYW ixMGnvI503AELodQmrIeDdy GllbnQg VOabXKf8W6KsDzczmYJ+PC9 7PBVyNY27qUBqkBRgb4gbfY i2XsRzJPIbYGL2pNzuUMtpm 3JkZXIt J26zyUJxj6B8LZQklVoulHN aTcGiqQT1zZ4sZAzjrxvab9 inypdtNkurl7pnmk17vT56E 29sIHdp ZHRoPSIzMCUiIHZhbGlnbj0 dsA1vMq5+WRAtgNZ5sAV4fU 6qUALgUsB4NYoiK182BgSny CIvPjxj q5lul2nppDp0SgB7AXXwcmV ykVigUHT2p6WkCg53D60uTX dpZHRoPSIyMCUiIHZhbGlnb g9lvK0n Ii8+MHNxtJL5fHS5gH6pJdC yVsK2LVygJ938DxVseVHeJy idD90iO7XcuUI+YXCkPhn8C CBzdHls GO6zjEXkKGogDj8fAKD0LtI iGmMjQUwoX0UlWCBspudjtg grcGC9BMWeLZMsgU01Mx0gq DogMTBw aZRYnF4gdlrwg9cvhdljXtK gPXOkBVh7IWg5TZVvjGfgPy MqCBT7MlB1XKU5yZRmvX3es Glnbjog tB0lV2VrJMToxcbtQd01qB2 zVjKtTvU7JVhgCpb+RFVSSV ELT6VpQPbQXcjjKMyLYH25Y 3EbKih1 SPDdaUkaRI2svSSqKPpqKh2 hqTwngNlvVY9pBCSkcwooTL LryQ1vLGNofFYayEahDW5mU TBpbjtm b303RuHmTGB1JKKrhYBbZ1X zvR4yTqUjQKNbXMOxJ8YiyI BgYYvsC345FQrfNsV0QGQli gOkM3Bp HGOxdWchJsY7a9P7Zc4hOT9 iCk2lKAQ8FO34KA37aYMwa4 S0vWM8D7ClUZHcamkughzvp MY8NOYq MZBhwW22mWHzUHagYt0ri3P 7z286KFKoZIUtxE87Bm1faY eaRGBjhTROtV7zcggxp9rlm jogIzAw IUBcKXd3MUd2YWBypSqzNrT iFSH5NtN1XBG6cJScsI1cjT ijsvxgaX3iAuq+NTYgWWVhc yM1W8Fb Ucq0EKAsxXovWU2wpTOjEPc jIf1hkCzmhSepYQ1hZLDxku nfTTWjhC5pGQGxtGSyeFvcA I6cTOHa rsysm391JtKvVDE2HBLurBQ vF3MthD2aOdOgONXxUNOlQ0 ZkkCTcQEnxI557YYicUdO6S HZlcnRp G0SqXTWkgYqxPrE8m8A1Bu2 RHLrFUJ18RQ36gABrp6N8jN T1I8JyLEJsclstbcfocTZ8Z DAuMDUw aT20cKEhQStkMg4mx6F3j30 6BXWhPMQtxL10Gj0zbBpxOU MxmLQHpH4qunkuz3zysofhF zAwMDAw BWt8PGy3XHUneIviQzSqCVA 3UlY5WVB6gDFjoT1btVesgs uppP7eJye+L7J6B4TbTjbvu HI+PC90 EDVcDM32eVLqnMHpr6ntvEu 9NgTyUMQcQHX3pYvtCNiiw1 GcOKExE76ucJIvh8R9LRVcd GxhcHNl MqVvvBS0kF8iKSakhfhtm4u kxutkFpiek7tnvd79oS23V4 9sIHdpZHRoPSIzMCUiIHZhb Mnwce0l pW8jUb7+YIIthFQ3aRH0wG1 vMrJeHoT6QKnmR381IgGpvW VbDypue9llb0kxrWa1QpSkZ SIgdmFs zAraGVE6t0AtLe96Y76fDJv pZHRoPSIyMCUiIHZhbGlnbj 9xmG5jDa3+RV2xd1oqfp82c D48dHI+ ZMXlRWK2cTzmAKldNRGsvT2 bMRqfZpZ2IKPrAhNhcX92sK UsDTonOs0vnLarnTpvGT1uI TBpbjtm j486QfIzf4qxITGhfFZnAGj tOGH3C06ny7F6RZOrFIEyOT K9hPL8zC1qlOpmusdenYFgr DsgdmVy sLvsRPqcUZhqK344KOXqkUo pElLpuUFyG3hiawJVUQ6uJr wvdGQ+JIMmNIL0bGghLHpuU ZCgfP8a EGZyG6g8YxUrDnV3LDizO4I ljwO9UBSchOMhQYPvlULPxH 0tdylxb2lwagevTdHzWBBcK Lf3IWo3 ORDgdVcgWzHgANT4EbL0YQH 5hSSxiF0pwBeiylwasJ7oJr c+RklOOjwvdGQ+YCZuFMJ8c WxlPSdw IEJneA2aXEFlS1f5AkNqEiR 9DXwoJ6VchlE2PBFioVSwAW KqxWCVxX9imcpxa9blpvsrP zAwMDAw BYq5MEn0TAJrzZggGtAwGCZ 3RlZ4IYM5wIYutA2rwErygh gxvF4lAgn+TVJOOjwvdGQ+P HRkIHN0 nJjeBCklFLJbuQ1uZOLnV8t 5PvEhUwG4ABqqK1SotkN7HF InwHAqLWSmpDEBsT8wpadsc 2xvcjog XtMiURBkXMp4SKb0YCXnyAs wInRoRMX9VqW6MPI2lPDjaJ 4jyKblzwrvdG2yYqh+UGF5Z BF5ST05 UI94X8QrMgrqpZMfqEF+PHR hYmxlIHdpZHRoPScxMDAlJy LehEncYU1xCh0cXKPvDQJjg GxhcHNl OiB (more content not included)... [facility] Consent Formson 09-06-2023 Consent Forms [id number]#1.00O TGTIFF [facility] Stress Teston 09-06-2023 Stress Test [id number]#1.00O TGTIFF [facility] CV Stress ECGon 09-03-2023 CV Stress [...] reported separately. Jaskaran Tejeda MD JOB #: [id number] ul Final Dictated by: Jaskaran Tejeda MD Dictated DT/TM: 09/03/23 10:07 Signed (Electronic Signature): Jaskaran Tejeda MD 09/21/23 8:26 am Technologist: ADE [facility] NM Myocardial Spect Multi Re st/Stresson [...] Garcia MD, V. 09/03/23 11:43 a Technologist: [facility] Provider [place] 09-03-2023 Provider Orders [id number]#1.00 [facility] Provider [place] 09-02-2023 Provider Orders [id number]#1.00OT [facility] Provider Orders [id number]#1.00 [facility] Surgical Pathology Reporton 08-16-2023 Surgical Pathology Report (NOTE) [id number] [facility] ANATOMIC PATHOLOGY [address] [place] [address]. [place], [place] [address] SURGICAL PATHOLOGY CONSULTATION Patient Name: GURVINDER BLACKBURN MR#: [id number] Specimen #[id number] Procedures/Addenda MOLECULAR PATHOLOGY REPORT Date Ordered: 09/16/2023 Status: Signed Out Date Complete: 09/16/2023 By: Obie Marie M.D. Date Reported: 09/16/2023 INTERPRETATION AT THE REQUEST OF VASILE AUGUST D1 WAS SENT TO [facility] FOR DECIPHER PROSTATE BIOPSY GENOMIC INTEGRITY CONSULTANT TESTING. THE RESULTS ARE FOLLOWS: GENOMIC RISK IS: LOW RISK OF METASTASIS WITH RT OR RP: 5 YEAR: 0.5% 10 YEAR: 1.1% RISK OF PROSTATE CANCER MORTALITY WITH RT OR RP: 17 YEAR: 1.2% RISK OF ADVERSE PATHOLOGY AT RP: 18.3% PLEASE SEE [facility]' COMPLETE REPORT ([id number]) FOR DETAILS. Case report, all slides and [...] second Pathologist who concurs with the diagnosis ([facility]). Riccardo Hutson Electronically Signed Out 08/19/2023 Clinical [...] M: LEFT APEX MEDIAL Gross Description GURVINDER BLACKBURN, PROSTATE BIOPSIES All specimens are received in [...] negative for racemase. Controls are adequate. Normal [facility] Encounters Encounter Date Encounter Type Care Provider Facility Start: 08-28-2024 End: 08-28-2024 Postop follow up visit related to original px Dustin Zuniga E [employer] Work Phone: [facility] Comment on above: S/P carpal tunnel re lease (Primary Dx); Right wrist pain; Left wrist pain Start: 08-28-2024 End: 08-28-2024 ambulatory DUSTIN ZUNIGA Not Available Start: 08-28-2024 End: 08-28-2024 Bamboo flowsrocio Zuniga NP Work Phone: [facility] Start: 08-28-2024 End: 08-28-2024 Bamboo flowsrocio Zuniga [employer] Work Phone: [facility] Start: 08-03-2024 End: 08-03-2024 Postop follow up visit related to original px Dustin Zuniga NP Work Phone: [facility] Comment on above: S/P carpal tunnel re lease (Primary Dx) Start: 08-03-2024 End: 08-03-2024 ambulatory DUSTIN ZUNIGA Not Available Start: 08-03-2024 End: 08-03-2024 Bamboo flowsrocio Zuniga E [employer] Work Phone: [facility] Start: 08-03-2024 End: 08-03-2024 Bamboo marilee Zuniga [employer] Work Phone: [facility] Start: 07-31-2024 End: 08-08-2024 Telephone encounter Janine Israel DO Work Phone: [facility] Start: 07-24-2024 End: 07-24-2024 ambulatory Janine Israel Facility:[facility] Start: 07-21-2024 End: 07-23-2024 Refill Dustin Zuniga NP Work Phone: [facility] Comment on above: S/P carpal tunnel re lease (Primary Dx) Start: 07-20-2024 End: 07-20-2024 ambulatory DUSTIN ZUNIGA Not Available Start: 07-20-2024 End: 07-20-2024 Postop follow up visit related to original px Dustin Zuniga [employer] Work Phone: [facility] Comment on above: Right carpal tunnel syndrome (Primary Dx); Right wrist pain; S/P carpal tunnel release Start: 07-20-2024 End: 07-20-2024 Bamboo flowsrocio Zuniga E [employer] Work Phone: [facility] Start: 07-20-2024 End: 07-20-2024 Bamboo flowsheet Dustin Zuniga E [employer] Work Phone: [facility] Start: 07-10-2024 End: 07-10-2024 ambulatory Janine Israel Facility:[facility] Start: 07-07-2024 End: 07-07-2024 Refill Dustin Zuniga [employer] Work Phone: [facility] Comment on above: Post-operative pain (Primary Dx) Start: 06-15-2024 End: 06-15-2024 ambulatory JANINE Camarillo R[place] Not Available Start: 06-01-2024 End: 06-01-2024 ambulatory [facility] Facility:[facility] Start: 05-18-2024 End: 05-18-2024 ambulatory [facility] Not Available Start: 04-26-2024 End: 04-26-2024 ambulatory [facility] Facility:[facility] Start: 03-21-2024 End: 03-21-2024 ambulatory [facility] Facility:[facility] Start: 03-19-2024 End: 03-19-2024 Emergency department patient visit Daysi Silva PA-C Facility:[facility] Start: 09-03-2023 End: 09-07-2023 ambulatory [facility] Facility:[facility] Start: 09-02-2023 End: 09-02-2023 ambulatory [facility] Facility:[facility] Start: 08-16-2023 End: 08-16-2023 ambulatory ALFONSO SCHAEFER [facility] Start: 12-01-2022 ambulatory JAIR CARPENTER Facilit y:H1 Start: 07-16-2022 ambulatory ROS CM Faci lity:H1 Start: 01-28-2022 ambulatory ROS CM Faci lity:H1 Start: 08-28-2017 End: 08-28-2017 Emergency department patient visit DEV Khan [facility] Start: 03-02-2017 End: 03-03-2017 Ambulatory DEFAULT PHYSICIAN Facility:[facility] Procedures Date Procedure Procedure Detail Performing Clinician History of decompres armand of median nerve S/P carpal tunnel release Dustin Zuniga NP Work Phone: History of decompres armand of median nerve S/P carpal tunnel release Dustin Zuniga [employer] Work Phone: History of decompres armand of median nerve S/P carpal tunnel release Dustin Zuniga [employer] Work Phone: History of decompres armand of median nerve S/P carpal tunnel release Dustin Zuniga [employer] Work Phone: Plan of Treatment Date Care Activity Detail Author Start: 10-09-2024 End: 10-09-2024 Patient encounter procedure 10/09/2024 3:00 PM EST Office Visit [facility] [address] [place] [address] Dustin Zuniga, SIMÓN [address] [place] [address] [facility] Start: 08-28-2024 End: 08-28-2024 Patient encounter procedure [facility] Comment on above: Arrived Start: 08-03-2024 End: 08-03-2024 Patient encounter procedure 08/03/2024 2:30 PM EST Office Visit [facility] [address] [place] [phone] Dustin Zuniga, SIMÓN [address] [place] [address] [facility] Start: 07-24-2024 End: 07-24-2024 Patient encounter procedure 07/24/2024 10:30 AM EST Procedure Visit [facility] Janine Israel, DO [address] [place] [address] [facility] Start: 07-20-2024 End: 07-20-2024 Patient encounter procedure 07/20/2024 2:45 PM EDT Office Visit [facility] [address] [place] [phone] Janine Israel, DO [address] [place] [address] [facility] Start: 07-10-2024 End: 07-10-2024 Patient encounter procedure 07/10/2024 9:30 AM EDT Procedure Visit [facility] Lindy Janine Camarillo, DO [address] [place] [address] [facility] Start: 1965 Screening for malignant neoplasm of colon [facility] Immunizations Immunization Date Immunization Notes Care Provider Fa cility 06-17-2023 influenza, injectabl e, quadrivalent, preservative free Dustin Zuniga [employer] Work Phone: [facility] 06-23-2022 influenza, injectabl e, quadrivalent, preservative free Dustin Som [employer] Work Phone: [facility] 07-01-2021 zoster vaccine recombinant Dustin Som [employer] Work Phone: [facility] 06-04-2021 influenza, injectabl e, quadrivalent, preservative free Dustin Som [employer] Work Phone: [facility] 02-22-2021 tetanus toxoid, redu patrick diphtheria toxoid, and acellular pertussis vaccine, adsorbed Dustin Som E [employer] Work Phone: [facility] 02-22-2021 zoster vaccine recombinant Dustin Som [employer] Work Phone: [facility] 06-14-2020 influenza, seasonal, injectable Dustin Som [employer] Work Phone: [facility] 06-03-2020 influenza, injectabl e, quadrivalent, preservative free Dustin Som [employer] Work Phone: [facility] 05-18-2019 influenza, injectabl e, quadrivalent, preservative free Dustin Som [employer] Work Phone: [facility] 06-17-2018 influenza, injectabl e, quadrivalent, preservative free Dustin Som [employer] Work Phone: [facility] Payers Date Payer Category Payer Private Health Insurance [employer] [id number] 2024 Unknown [id number] 2016 Unknown [id number] 1965 Unknown [id number] 2.16.840.1.374483.3.579.2. 593 1967 Unknown [id number] 2.16.840.1.407375.3.579.2. 593 1967 Unknown [id number] 2.16.840.1.176140.3.579.2. 593 1967 Unknown [id number] 2.16.840.1.595505.3.579.2. 177 1967 Unknown [id number] 2.16.840.1.288693.3.579.2. 718 1967 Unknown [id number] 2.16.840.1.722097.3.579.2. 718 1967 Unknown [id number] 2.16.840.1.612599.3.579.2. 718 1967 Unknown [id number] 2.16.840.1.892261.3.579.2. 718 1967 Unknown [id number] 2.16.840.1.751423.3.579.2. 718 1967 Unknown [id number] 2.16.840.1.712048.3.579.2. 718 1967 Unknown [id number] 2.16.840.1.008111.3.579.2. 718 1967 Unknown [id number] 2.16.840.1.954030.3.579.2. 1259 1967 Unknown [id number] 2.16.840.1.713054.3.579.2. 9 1967 Unknown [id number] 2.16.840.1.294933.3.579.2. 1259 1967 Unknown [id number] 2.16.840.1.540962.3.579.2. 9 1967 Unknown [id number] 2.16.840.1.834280.3.579.2. 1259 1959 Unknown [id number] Unknown Social History Date Type Detail Facility Start: 05-17-2024 Tobacco smoking stat [facility] Never smoked tobacco [facility] Start: 05-17-2024 Tobacco use and exposure Smokeless t obacco non-user [facility] Start: 06-15-2024 End: 08-03-2024 Alcoholic beverage intake Current drinker of alcohol (finding) [facility] Start: 06-15-2024 End: 08-03-2024 Alcoholic beverage intake [facility] Start: 06-15-2024 End: 08-03-2024 Tobacco use panel [facility] Start: 1965 Sex assigned at Male [facility] Start: 2024 Gender identity Identifies as male gender (finding) [facility] Clinical Notes 03-19-2024 to 08-28-2024 Dustin Zuniga NP - 08/28/2024 3:00 PM ESTDustin Zuniga NP - 08/03/2024 2:30 PM ESTTelephone Encounter - Dustin Zuniga NP - 07/31/2024 11:00 AM Nicole Zuniga NP - 07/20/2024 2:45 PM EDT Note Date & Type Note Facility 08-28-2024 History of Presen t illness Narrative Images from the original note were not included. HISTORY OF PRESENT ILLNESS: POST OP PT Gurvinder Blackburn is an 59 y.o. @ male. (EST PT W/ LINDY) S/P (R) CTR 07/24/24 (5WKS) N/T has resolved but continues to have tenderness and aching. Admits swelling. He is using ice and doing massage. + wake at HS a few times per week. Tightness in the AM. Incision well healed. Tried TYL/IBU w/o relief. He is pleased that the N/T is gone s/p LT CTR 07/10/24. N/T resolved, continues with tenderness and aching. Working without restrictions . REVIEW OF SYSTEMS: General: Denies fever, fatigue or weight loss Lungs: Denies SOB Cardio: Denies chest pain GI: Denies indigestion or abdominal pain Neuro: Denies numbness or tingling, denies new onset paralysis Musculoskeletal: ( see note) PHYSICAL EXAM: Right Hand Exam Tenderness Right hand tenderness location: tenderness over the incision. Range of Motion The patient has normal right wrist ROM. Muscle Strength Film Vault Supervisor: 4/5 Other Erythema: absent Scars: present (Well healed) Sensation: normal Pulse: present Comments: Left Hand Exam Tenderness Left hand tenderness location: tenderness over the incision. Range of Motion The patient has normal left wrist ROM. Muscle Strength Film Vault Supervisor: 4/5 Other Erythema: absent Scars: present (Well healed) Sensation: normal Pulse: present X RAY : ELBOW - AP, LATERAL, DAVIS PERFORMED AT [facility] LOCATION:[id number] Procedures No orders of the defined types were placed in this encounter. ASSESSMENT: ICD-10-CM 1. Right wrist pain M25.531 2. Left wrist pain M25.532 PLAN: Patient states that he is still having pain over both incisions but that numbness has resolved. I educated patient that it will take time for his median nerves to desensitize after surgery and recommend he continue to work on promos executive producer strength and rubbing incisions to break up any adhesions/scar tissue. Patient verbalized understanding and will follow up in 6 weeks for RCK. Questions answered in laymen terms at the bedside. The diagnosis, home exercise plan and any ongoing restrictions/ recommendations reviewed. If unable to be reached in office, I recommend evaluation at nearest Emergency Room if any symptoms worsened or new symptoms develop for requiring urgent evaluation. Dustin Zuniga FINANCIAL AID COUNSELOR-VENEER DEPARTMENT MANAGER documented in this encounter [facility] 08-09-2024 Note [id number] History of Presen t illness Narrative Images from the original note were not included. HISTORY OF PRESENT ILLNESS: Gurvinder Blackburn is an 59 y.o. @ male. 1st po x 10 days s/p RT CTR 07/24/24. Notes aching in wrist. Keeping wrapped with janet. Taking TYL. Denies N/T. Minimal swelling. Does not wake at HS. Denies drainage. Stitches intact, removed today. Incision healing well. Steri strips applied. REVIEW OF SYSTEMS: General: Denies fever, fatigue or weight loss Lungs: Denies SOB Cardio: Denies chest pain GI: Denies indigestion or abdominal pain Neuro: Denies numbness or tingling, denies new onset paralysis Musculoskeletal: ( see note) PHYSICAL EXAM: Right Hand Exam Right hand exam is normal. Tenderness The patient is experiencing tenderness in the palmar area (EXPECTED POST OPERATIVE SORENESS AT INICISION.). Range of Motion The patient has normal right wrist ROM. Muscle Strength The patient has normal right wrist strength (MOTORS HAND AND WRIST WITHIN LIMITS OF SURGERY). Other Erythema: absent Scars: present (WELL HEALING, SUTURES PRESENT, REMOVED) Sensation: normal Pulse: present Comments: The operative upper extremity was neurovascularly unchanged. Patient was able to motor fingers and thumb to operative upper extremity in all anatomic planes with 5 out of 5 strength. Radial and ulnar pulses were present and equal bilaterally postoperatively. Sensation to light touch was intact to all dermatomes to operative upper extremity postoperatively. Capillary refill was less than 2 seconds postoperatively to operative upper extremity nailbeds. Compartments were soft to operative upper extremity postoperatively. Procedures IMAGING: ASSESSMENT: ICD-10-CM 1. S/P carpal tunnel release Z98.890 PLAN: 10 days s/p RT Carpal tunnel release: Plan: I reviewed Post Op care and instructions with the patient. No forceful gripping for 4 weeks from the date of surgery. Work on rom of fingers. use for light activities such as eating, keyboarding, writing and phone. Questions answered in laymen terms at the bedside. The diagnosis, home exercise plan and any ongoing restrictions/ recommendations reviewed. If unable to be reached in office, I recommend evaluation at nearest Emergency Room if any symptoms worsened or new symptoms develop for requiring urgent evaluation. Dustin Zuniga, FINANCIAL AID COUNSELOR-VENEER DEPARTMENT MANAGER documented in this encounter [facility] 07-31-2024 Telephone encounter Note That is normal. The new skin that is healing underneath will push up and the skin will start to peel off. Try not to pick at it. [facility] Work Phone: 07-31-2024 Miscellaneous Notes That is normal. The new skin that is healing underneath will push up and the skin will start to peel off. Try not to pick at it. Patient called stating that his incision is raising up. Had carpal tunnel surgery on 07/24. Stats its not hot to the touch. documented in this encounter [facility] 07-31-2024 Telephone encounter Note Patient called stating that his incision is raising up. Had carpal tunnel surgery on 07/24. Stats its not hot to the touch. [facility] 07-24-2024 Note [facility] SURGERY Clinical Discharge Summary PERSON INFORMATION Name GURVINDER BLACKBURN Age 59 Years 1965 Sex MALE Language Italian PCP Dev Perla DO Marital Status [facility] Service Ambulatory Surgery Acct# Arrival 07/24/2024 12:51:27 Visit Reason SURGERY - RIGHT CARPAL TUNNEL RELEASE Acuity LOS 056 01:15 Address: [address] [facility] [id number] Comment: PROVIDER INFORMATION VITALS INFORMATION Vital Sign Triage Latest Temp Oral Temp Temporal Temp Intravascular Temp Axillary Temp Rectal 02 Sat 97 % 97 % Respiratory Rate Peripheral Pulse Rate Apical Heart Rate Blood Pressure / 95 mmHg / 75 mmHg Comment: MEDICAL INFORMATION Allergy Info: Keflex Prescriptions Given: allopurinol (allopurinol 100 mg oral tablet) 1 tab(s) Oral (given by mouth) every day. aspirin (aspirin 81 mg oral tablet) 1 tab(s) Oral (given by mouth) every day. cholecalciferol (Vitamin D3) 7,500 unit(s) Oral (given by mouth) every day. hydrochlorothiazide-lisinopril (hydrochlorothiazide-lisinopril 25 mg-20 mg oral tablet) 1 tab(s) Oral (given by mouth) every day. meloxicam (meloxicam 15 mg oral tablet) 1 tab(s) Oral (given by mouth) every day. metoprolol (metoprolol succinate 50 mg oral tablet, extended release) 1 tab(s) Oral (given by mouth) every day. pitavastatin (Livalo 4 mg oral tablet) 1 tab(s) Oral (given by mouth) every day. Medication List: Medications to Continue That Have Not Changed Other Medications allopurinol (allopurinol 100 mg oral tablet) 1 tab(s) Oral (given by mouth) every day. aspirin (aspirin 81 mg oral tablet) 1 tab(s) Oral (given by mouth) every day. cholecalciferol (Vitamin D3) 7,500 unit(s) Oral (given by mouth) every day. hydrochlorothiazide-lisinopril (hydrochlorothiazide-lisinopril 25 mg-20 mg oral tablet) 1 tab(s) Oral (given by mouth) every day. meloxicam (meloxicam 15 mg oral tablet) 1 tab(s) Oral (given by mouth) every day. metoprolol (metoprolol succinate 50 mg oral tablet, extended release) 1 tab(s) Oral (given by mouth) every day. pitavastatin (Livalo 4 mg oral tablet) 1 tab(s) Oral (given by mouth) every day. Medications to Continue That Have Not Changed Other Medications allopurinol (allopurinol 100 mg oral tablet) 1 tab(s) Oral (given by mouth) every day. aspirin (aspirin 81 mg oral tablet) 1 tab(s) Oral (given by mouth) every day. cholecalciferol (Vitamin D3) 7,500 unit(s) Oral (given by mouth) every day. hydrochlorothiazide-lisinopril (hydrochlorothiazide-lisinopril 25 mg-20 mg oral tablet) 1 tab(s) Oral (given by mouth) every day. meloxicam (meloxicam 15 mg oral tablet) 1 tab(s) Oral (given by mouth) every day. metoprolol (metoprolol succinate 50 mg oral tablet, extended release) 1 tab(s) Oral (given by mouth) every day. pitavastatin (Livalo 4 mg oral tablet) 1 tab(s) Oral (given by mouth) every day. Medications to Continue That Have Not Changed Other Medications allopurinol (allopurinol 100 mg oral tablet) 1 tab(s) Oral (given by mouth) every day. aspirin (aspirin 81 mg oral tablet) 1 tab(s) Oral (given by mouth) every day. cholecalciferol (Vitamin D3) 7,500 unit(s) Oral (given by mouth) every day. hydrochlorothiazide-lisinopril (hydrochlorothiazide-lisinopril 25 mg-20 mg oral tablet) 1 tab(s) Oral (given by mouth) every day. meloxicam (meloxicam 15 mg oral tablet) 1 tab(s) Oral (given by mouth) every day. metoprolol (metoprolol succinate 50 mg oral tablet, extended release) 1 tab(s) Oral (given by mouth) every day. pitavastatin (Livalo 4 mg oral tablet) 1 tab(s) Oral (given by mouth) every day. Comment: Lab and Radiology Results Laboratory or Other Results This Visit (last charted value for your 07/24/2024 visit) No Laboratory or Other Results This Visit DIET & ACTIVITY Patient Activity Level: Patient Diet: Patient Activity Restrictions: DISCHARGE INFORMATION Discharge Disposition: Discharge Location: DEPART REASON INCOMPLETE INFORMATION PATIENT EDUCATION INFORMATION Instructions: Lindy- Post Op Carpal Tunnel (CUSTOM) Follow up: With: Address: When: Dustin Zuniga [address] [place] [id number] Business (1) 08/03/2024 2:30 PM DIAGNOSIS Carpal tunnel syndrome, right Comment: PHYS DOC NOTES [facility] 07-24-2024 Note Procedure: Decompres armand of median nerve right wrist with release of carpal canal Pre Op Diagnosis: Carpal tunnel syndrome right Post Op Diagnosis: Carpal tunnel syndrome right Surgeon: Dr. Rayray Israel DO Anesthesia: Local Indication for Surgery: The patient had symptoms of carpal tunnel syndrome. There was evidence of progression. We discussed surgical and nonsurgical alternatives and the risks and benefits of each and the chances for success / failure. I recommended to proceed with surgery and the patient requested the same. Findings: The median nerve was noted to be present and intact within the carpal canal. The carpal canal/tunnel was stenotic Blood Loss: Scant Specimen: None Procedure Summary: The upper extremity was sterilely prepped and draped in usual fashion. A timeout was taken in the operating room. Infiltrated incision site with 1% lidocaine with epinephrine. The arm was exsanguinated and tourniquet was inflated 250 mmHg. A longitudinal incision was made over the carpal tunnel dissection was carried down beyond the palmaris longus and down to the transverse carpal ligament. Transverse carpal ligament was incised with a 15 blade and then released proximally and distally with a pair of Angeles scissors. I made sure that the nerve was completely decompressed as it exited the distal volar forearm fascia and traveled through the carpal tunnel and into the hand. The wound was irrigated with copious amounts sterile saline and the skin was closed with nylon suture. Arduously wound were then infiltrated with half percent Marcaine. Adaptic sterile dressings and an Janet bandage were applied with the thumb in apposition Complications: None [Electronically Signed on: 07/24/2024 13:44 EST] Janine Israel DO [Verified on: 07/24/2024 13:44 EST] Janine Israel DO [facility] 07-21-2024 Telephone encounter Note Post op pain rx. PDMP reviewed [facility] 07-21-2024 Miscellaneous Notes Post op pain rx. PDMP reviewed documented in this encounter [facility] 07-20-2024 History of Presen t illness Narrative Images from the original note were not included. HISTORY OF PRESENT ILLNESS: Gurvinder [place] is an 59 y.o. @ male. Chief complaint RT hand N/T, 1st po LT CTR RT wrist: EMG [facility] 08/10/23 RT wrist pain and N/T x 15 years. Denies injury. Continues to have intermittent N/T in thumb, IF and MF. Happens when driving, eating, driving- the more he uses it the worse it gets. Denies swelling. Good ROM. Denies issues gripping, denies dropping things. Prior treatment: PCP 2022, EMG at [facility] 08/10/23 LT handed 1st po x 10 days s/p LT CTR 07/10/24. Had lots of pain initially but has improved. Notes soreness now. Wearing janet wrap. Taking TYL. States N/T has greatly improved. Denies swelling. Does not wake at HS. Denies drainage. Stitches intact, removed today. Steri strips applied. Has already returned to work without issues. MEDICATION: Current Outpatient Medications on File Prior to Visit Medication Sig Dispense Refill allopurinol (Zyloprim) 100 MG tablet cholecalciferol (Vitamin D-3) 25 MCG (1000 UT) capsule TAKE 1 CAPSULE (125 MCG) ORALLY DAILY FOR 90 DAYS lisinopril-hydroCHLOROthiazide 20-25 MG tablet Take 1 tablet by mouth Daily meloxicam (Mobic) 15 MG tablet metoprolol succinate XL (Toprol-XL) 50 MG 24 hr tablet Take 50 mg by mouth Daily Pitavastatin Calcium (Livalo) 4 MG tablet traMADol (Ultram) 50 MG tablet No current facility-administered medications on file prior to visit. MEDICAL HISTORY: Past Medical History: Diagnosis Date Arthritis CTS (carpal tunnel syndrome) 2018 Hypertension ([facility]) Kidney stones Neuroma of foot 2018 ALLERGIES: Allergies Allergen Reactions Cephalexin Hives VITALS: Visit Vitals Smoking Status Never Review of Systems General: Fatigue denies. Fever denies. Night sweats denies. ENT: Decreased hearing denies. Respiratory: Cough denies. Shortness of breath denies. Cardiovascular: Chest pain denies. Cyanosis denies. Irregular heartbeat denies. Gastrointestinal: Comments denies incontinence of stool . Nausea denies. Hematology: Bleeding problems denies. Genitourinary: Comments denies dribbling. Incontinence denies. Musculoskeletal: CommentsSee [facility] for details. Skin: Rash denies. Neurologic: Dizziness denies. Headache denies. Examination General Examination: GENERAL EXAMINATION in no acute distress, well developed, well nourished . HEART: no jugular venous distention . LUNGS: regular unlabored, normal effort . NEUROLOGIC: alert and oriented . PSYCH: oriented to person, place, time and situation . PHYSICAL EXAM: Ortho Exam RIGHT WRIST No thenar wasting Decreased sensation median distribution Positive Phalens Positive Tinels LEFT WRIST Sutures removed, steri strips applied. Incision Clean dry and intact. IMAGING: [facility] 2023 it revealed extensive EMG changes in the upper extremities consistent with carpal tunnel syndrome severe bilaterally ASSESSMENT: ICD-10-CM 1. Right carpal tunnel syndrome G56.01 2. Right wrist pain M25.531 3. S/P carpal tunnel release Z98.890 LEFT PLAN: LT WRIST I reviewed Post Op care and instructions with the patient. No forceful gripping for 4 weeks from the date of surgery. Work on rom of fingers. use for light activities such as eating, keyboarding, writing and phone. Questions answered in laymen terms at the bedside. The diagnosis, home exercise plan and any ongoing restrictions/ recommendations reviewed. If unable to be reached in office, I recommend evaluation at nearest Emergency Room if any symptoms worsened or new symptoms develop for requiring urgent evaluation. RIGHT WRIST I discussed options of surgical and non surgical treatment. Risks/benefits of each and chances for success/ failure. Discussion included but was not limited to the risk of infection, blood clot, failure to improve and need for additional surgery. The patient was advised that surgery is not likely to make them pain free. I answered all of the patients questions. I recommend a RT Carpal tunnel release. The patient was instructed to vidal the operative site with the word Yes prior to arriving at the hospital and the patient verbalized an understanding. The patient wants to proceed and informed consent is obtained. Dustin Zuniga CNP obtained history and examined the patient, I am acting as scribe for Dustin Zuniga CNP/errol Zuniga FINANCIAL AID COUNSELOR-VENEER DEPARTMENT MANAGER documented in this encounter [facility] 07-13-2024 Note [id number] 07-10-2024 Note Procedure: Decompres armand of median nerve left wrist with release of carpal canal Pre Op Diagnosis: Carpal tunnel syndrome left Post Op Diagnosis: Carpal tunnel syndrome left Surgeon: Dr. Rayray Israel, DO Anesthesia: Local Indication for Surgery: The patient had symptoms of carpal tunnel syndrome. There was evidence of progression. We discussed surgical and nonsurgical alternatives and the risks and benefits of each and the chances for success / failure. I recommended to proceed with surgery and the patient requested the same. Findings: The median nerve was noted to be present and intact within the carpal canal. The carpal canal/tunnel was stenotic Blood Loss: Scant Specimen: None Procedure Summary: The upper extremity was sterilely prepped and draped in usual fashion. A timeout was taken in the operating room. Infiltrated incision site with 1% lidocaine with epinephrine the arm was exsanguinated and tourniquet was inflated to 250 mmHg. A longitudinal incision was made over the carpal tunnel dissection was carried down beyond the palmaris longus and down to the transverse carpal ligament. Transverse carpal ligament was incised with a 15 blade and then released proximally and distally with a pair of Angeles scissors. I made sure that the nerve was completely decompressed as it exited the distal volar forearm fascia and traveled through the carpal tunnel and into the hand. I then infiltrated the incision site with half percent Marcaine. The wound was irrigated with copious amounts sterile saline and the skin was closed with nylon suture. Adaptic sterile dressings and an Janet bandage were applied with the thumb in apposition Complications: None [Electronically Signed on: 07/10/2024 13:28 EDT] Janine Israel DO [Verified on: 07/10/2024 13:28 EDT] Janine Israel DO [facility] 07-10-2024 Note [facility] SURGERY Clinical Discharge Summary PERSON INFORMATION Name GURVINDER BLACKBURN Age 59 Years 1965 Sex MALE Language Italian PCP Dev Perla DO Marital Status Med Service Ambulatory Surgery Acct# Arrival 07/10/2024 11:59:40 Visit Reason SURGERY - LEFT CARPAL TUNNEL RELEASE Acuity LOS 042 00:39 Address: [address] [place] [id number] Comment: PROVIDER INFORMATION VITALS INFORMATION Vital Sign Triage Latest Temp Oral Temp Temporal Temp Intravascular Temp Axillary Temp Rectal 02 Sat 96 % 96 % Respiratory Rate Peripheral Pulse Rate Apical Heart Rate Blood Pressure / 89 mmHg / 89 mmHg Comment: MEDICAL INFORMATION Allergy Info: Keflex Prescriptions Given: allopurinol (allopurinol 100 mg oral tablet) 1 tab(s) Oral (given by mouth) every day. aspirin (aspirin 81 mg oral tablet) 1 tab(s) Oral (given by mouth) every day. cholecalciferol (Vitamin D3) 7,500 unit(s) Oral (given by mouth) every day. hydrochlorothiazide-lisinopril (hydrochlorothiazide-lisinopril 25 mg-20 mg oral tablet) 1 tab(s) Oral (given by mouth) every day. meloxicam (meloxicam 15 mg oral tablet) 1 tab(s) Oral (given by mouth) every day. metoprolol (metoprolol succinate 50 mg oral tablet, extended release) 1 tab(s) Oral (given by mouth) every day. pitavastatin (Livalo 4 mg oral tablet) 1 tab(s) Oral (given by mouth) every day. Medication List: Medications to Continue That Have Not Changed Other Medications allopurinol (allopurinol 100 mg oral tablet) 1 tab(s) Oral (given by mouth) every day. aspirin (aspirin 81 mg oral tablet) 1 tab(s) Oral (given by mouth) every day. cholecalciferol (Vitamin D3) 7,500 unit(s) Oral (given by mouth) every day. hydrochlorothiazide-lisinopril (hydrochlorothiazide-lisinopril 25 mg-20 mg oral tablet) 1 tab(s) Oral (given by mouth) every day. meloxicam (meloxicam 15 mg oral tablet) 1 tab(s) Oral (given by mouth) every day. metoprolol (metoprolol succinate 50 mg oral tablet, extended release) 1 tab(s) Oral (given by mouth) every day. pitavastatin (Livalo 4 mg oral tablet) 1 tab(s) Oral (given by mouth) every day. Medications to Continue That Have Not Changed Other Medications allopurinol (allopurinol 100 mg oral tablet) 1 tab(s) Oral (given by mouth) every day. aspirin (aspirin 81 mg oral tablet) 1 tab(s) Oral (given by mouth) every day. cholecalciferol (Vitamin D3) 7,500 unit(s) Oral (given by mouth) every day. hydrochlorothiazide-lisinopril (hydrochlorothiazide-lisinopril 25 mg-20 mg oral tablet) 1 tab(s) Oral (given by mouth) every day. meloxicam (meloxicam 15 mg oral tablet) 1 tab(s) Oral (given by mouth) every day. metoprolol (metoprolol succinate 50 mg oral tablet, extended release) 1 tab(s) Oral (given by mouth) every day. pitavastatin (Livalo 4 mg oral tablet) 1 tab(s) Oral (given by mouth) every day. Medications to Continue That Have Not Changed Other Medications allopurinol (allopurinol 100 mg oral tablet) 1 tab(s) Oral (given by mouth) every day. aspirin (aspirin 81 mg oral tablet) 1 tab(s) Oral (given by mouth) every day. cholecalciferol (Vitamin D3) 7,500 unit(s) Oral (given by mouth) every day. hydrochlorothiazide-lisinopril (hydrochlorothiazide-lisinopril 25 mg-20 mg oral tablet) 1 tab(s) Oral (given by mouth) every day. meloxicam (meloxicam 15 mg oral tablet) 1 tab(s) Oral (given by mouth) every day. metoprolol (metoprolol succinate 50 mg oral tablet, extended release) 1 tab(s) Oral (given by mouth) every day. pitavastatin (Livalo 4 mg oral tablet) 1 tab(s) Oral (given by mouth) every day. Comment: Lab and Radiology Results Laboratory or Other Results This Visit (last charted value for your 07/10/2024 visit) No Laboratory or Other Results This Visit DIET & ACTIVITY Patient Activity Level: Patient Diet: Patient Activity Restrictions: DISCHARGE INFORMATION Discharge Disposition: Discharge Location: DEPART REASON INCOMPLETE INFORMATION PATIENT EDUCATION INFORMATION Instructions: Lindy- Post Op Carpal Tunnel (CUSTOM) Follow up: With: Address: When: Janine Israel [address] [place] [address] Business (1) 07/20/2024 2:45 PM Type Location Start [facility] OR 07/24/2024 2:00 PM 07/24/2024 2:30 PM Confirmed DIAGNOSIS Carpal tunnel syndrome, left Comment: PHYS DOC NOTES [facility] 07-07-2024 Telephone encounter Note Post op pain rx. PDMP reviewed [facility] 07-07-2024 Miscellaneous Notes Post op pain rx. PDMP reviewed documented in this encounter [facility] 03-19-2024 Note Education Materials Urology Kidney Stones Kidney stones are rock-like masses that form inside of the kidneys. Kidneys are organs that make pee (urine). A kidney stone may move into other parts of the urinary tract, including: ? The tubes that connect the kidneys to the bladder (ureters). ? The bladder. ? The tube that carries urine out of the body (urethra). Kidney stones can cause very bad pain and can block the flow of pee. The stone usually leaves your body (passes) through your pee. You may need to have a doctor take out the stone. What are the causes? Kidney stones may be caused by: ? A condition in which certain glands make too much parathyroid hormone (primary hyperparathyroidism). ? A buildup of a type of crystals in the bladder made of a chemical called uric acid. The body makes uric acid when you eat certain foods. ? Narrowing (stricture) of one or both of the ureters. ? A kidney blockage that you were born with. ? Past surgery on the kidney or the ureters, such as gastric bypass surgery. What increases the risk? You are more likely to develop this condition if: ? You have had a kidney stone in the past. ? You have a family history of kidney stones. ? You do not drink enough water. ? You eat a diet that is high in protein, salt (sodium), or sugar. ? You are overweight or very overweight (obese). What are the signs or symptoms? Symptoms of a kidney stone may include: ? Pain in the side of the belly, right below the ribs (flank pain). Pain usually spreads (radiates) to the groin. ? Needing to pee often or right away (urgently). ? Pain when going pee (urinating). ? Blood in your pee (hematuria). ? Feeling like you may vomit (nauseous). ? Vomiting. ? Fever and chills. How is this treated? Treatment depends on the size, location, and makeup of the kidney stones. The stones will often pass out of the body through peeing. You may need to: ? Drink more fluid to help pass the stone. In some cases, you may be given fluids through an IV tube put into one of your veins at the hospital. ? Take medicine for pain. ? Make changes in your diet to help keep kidney stones from coming back. Sometimes, medical procedures are needed to remove a kidney stone. This may involve: ? A procedure to break up kidney stones using a beam of light (laser) or shock waves. ? Surgery to remove the kidney stones. Follow these instructions at home: Medicines ? Take jaui-rvw-hhkkloc and prescription medicines only as told by your doctor. ? Ask your doctor if the medicine prescribed to you requires you to avoid driving or using heavy machinery. Eating and drinking ? Drink enough fluid to keep your pee pale yellow. You may be told to drink at least 8?10 glasses of water each day. This will help you pass the stone. ? If told by your doctor, change your diet. This may include: ? Limiting how much salt you eat. ? Eating more fruits and vegetables. ? Limiting how much meat, poultry, fish, and eggs you eat. ? Follow instructions from your doctor about eating or drinking restrictions. General instructions ? Collect pee samples as told by your doctor. You may need to collect a pee sample: ? 24 hours after a stone comes out. ? 8?12 weeks after a stone comes out, and every 6?12 months after that. ? Strain your pee every time you pee (urinate), for as long as told. Use the strainer that your doctor recommends. ? Do not throw out the stone. Keep it so that it can be tested by your doctor. ? Keep all follow-up visits as told by your doctor. This is important. You may need follow-up tests. How is this prevented? To prevent another kidney stone: ? Drink enough fluid to keep your pee pale yellow. This is the best way to prevent kidney stones. ? Eat healthy foods. ? Avoid certain foods as told by your doctor. You may be told to eat less protein. ? Stay at a healthy weight. Where to find more information ? National Kidney Foundation (NKF): www.kidney.org ? U[employer] Care Foundation (UCF): www.urologyhealth.org Contact a doctor if: ? You have pain that gets worse or does not get better with medicine. Get help right away if: ? You have a fever or chills. ? You get very bad pain. ? You get new pain in your belly (abdomen). ? You pass out (faint). ? You cannot pee. Summary ? Kidney stones are rock-like masses that form inside of the kidneys. ? Kidney stones can cause very bad pain and can block the flow of pee. ? The stones will often pass out of the body through peeing. ? Drink enough fluid to keep your pee pale yellow. This information is not intended to replace advice given to you by your health care provider. Make sure you discuss any questions you have with your health care provider. Document Revised: 05/10/2022 Document Reviewed: 2022 Elsevier Patient Education ? 2022 [employer] [facility] Evaluation note Diagnosis Post-operative pain- Primary Other acute postoperative pain [facility] Diagnosis Right carpal tunnel syndrome- Primary Carpal tunnel syndrome Right wrist pain Pain in joint, forearm S/P carpal tunnel release Other postprocedural status [facility] Diagnosis S/P carpal tunnel release- Primary Other postprocedural status [facility] Diagnosis S/P carpal tunnel release- Primary Other postprocedural status [facility] Diagnosis S/P carpal tunnel release- Primary Other postprocedural status Right wrist pain Pain in joint, forearm Left wrist pain Pain in joint, forearm documented in this encounter [facility] Summary Purpose Family History No Family History [...] section and content) DATE CREATED AUTHOR 03/15/2018 [facility] DATE CREATED AUTHOR AUTHOR'S ORGANIZ ATION 03/16/2018 [facility] DATE CREATED AUTHOR AUTHOR'S ORGANIZ ATION 11/28/2022 [facility] DATE CREATED AUTHOR AUTHOR'S ORGANIZ ATION 09/17/2023 [facility] DATE CREATED AUTHOR AUTHOR'S ORGANIZ ATION 08/12/2024 [facility] DATE CREATED AUTHOR AUTHOR'S ORGANIZ ATION 08/31/2024 [facility] EPIC Care Teams (unrecognized sec tion and content) Hvac Installation Technician Relationship Specialty Start Date End Date Dev Perla MD [address] [place] [address] PCP - General Family Medicine 05/17/24 Hvac Installation Technician Relationship Specialty Start Date End Date Dev Perla MD [address] [place] [address] PCP - General Family Medicine 05/17/24 Hvac Installation Technician Relationship Specialty Start Date End Date Dev Perla MD [address] [place] [address] PCP - [facility] 05/17/24 Hvac Installation Technician Relationship Specialty Start Date End Date Dev Perla MD [address] [place] [address] PCP - [facility] 05/17/24 Hvac Installation Technician Relationship Specialty Start Date End Date Dev Perla MD [address] [place] [address] PCP - [facility] 05/17/24 Hvac Installation Technician Relationship Specialty Start Date End Date Dev Perla MD [address] [place] [address] PCP - General Family Medicine 05/17/24 Reason for Visit (unrecogniz ed section and content) Reason Comments Post-op Numbness Tingling Reason Comments Post-op Reason Comments Follow-up FOR RECORDS PERTAINING TO PATIENTS WHO ARE [...] BE BASED ON THE PRIMARY CLINICAL RECORDS. [facility] [employer] [facility]. provides no warranty or guarantee of the accuracy or completeness of information in this document.
== END 2024-09-05 15:43 | disposition home or self-care (01) ==
LOC: RAD 15:42
PROVIDERS: PCP Family Medicine; Visit Provider Podiatrist Foot & Ankle Surgery
DX: M25.571 Pain in right ankle and joints of right foot (principal); Z96.661 Presence of right artificial ankle joint
CPT/HCPCS: 73610

== ENCOUNTER 2025-04-15 08:57 | Emergency (ER) | payer OTHER, SELFPAY ==
--- OUTSIDE RECORDS SUMMARY | 2024-11-06 06:26 | XMS_ITS ---
Author Organization [facility] [place] Address [address] [place] [address] Care Team Providers Care Spin Table Operator Name Role Phone Dima Dev PEREZ Primary Care Provider Kyler Armenta [phone] REASON FOR VISIT tramadol refill Medications Medication SIG (Take, Route, Fr equency, Duration) Notes Start Date End Date Status traMADol HCl 50 MG 1 tablet as needed O rally every 4 hours for 7 days 11/06/2024 Active Encounters Encounter Location Date Provider Diagnosis [facility] (PODIATRY) [address] [place] [address] [place] [address] 11/06/2024 Kyler Caldera Arthritis of right ankle M19.071 Assessments Encounter Date Diagnosis (ICD Code) Assessment Notes Treatment Notes Treatment Clinical Notes Section Notes 11/06/2024 Arthritis of right ankle (ICD-10 - M19.071) Plan Of Treatment Medication Medication Name Sig Start Date Stop Date Notes traMADol HCl 50 MG 1 tablet as needed O rally every 4 hours for 7 days 11/06/2024 Progress Notes * Sanjeev BLACKBURN ADOB:[birth year] (59 yo M)Acc No.[id number]:11/06/2024 Patient: Sanjeev CASTRO :1965 A ge:59 Y S ex:Male [address] , [place], [address] * Refills Refill traMADol HCl Tablet, 50 MG, Orally, 42 Tablet, 1 tablet as needed, every 4 hours, 7 days, Refills=1 * true * Date: Generated for Valarie kirby/Elizabeth/Minerva on: 0 04/15/2025 09:18 AM EDT
--- OUTSIDE RECORDS SUMMARY | 2024-11-28 05:28 | XMS_ITS ---
Author Organization [facility] in [place] Address [address] [place] [address] Care Team Providers Care Spring Salvage Worker Name Role Phone Dev Ch DO Primary Care Provider Kyler Armenta [phone] Medications Medication SIG (Take, Route, Fr equency, Duration) Notes Start Date End Date Status traMADol HCl 50 MG 1 tablet as needed O rally every 4 hours for 7 days 11/28/2024 Active Pregabalin 75 MG 1 capsule Orally twi ce daily for 30 days 11/28/2024 Active Encounters Encounter Location Date Provider Diagnosis [facility] (PODIATRY) [address] [place] [address] [place] [address] 11/28/2024 Kyler Caldera Arthritis of right ankle M19.071 Assessments Encounter Date Diagnosis (ICD Code) Assessment Notes Treatment Notes Treatment Clinical Notes Section Notes 11/28/2024 Arthritis of right ankle (ICD-10 - M19.071) Plan Of Treatment Medication Medication Name Sig Start Date Stop Date Notes traMADol HCl 50 MG 1 tablet as needed O rally every 4 hours for 7 days 11/28/2024 Pregabalin 75 MG 1 capsule Orally twi ce daily for 30 days 11/28/2024 Progress Notes * Sanjeev BLACKBURN ADOB:[birth year] (59 yo M)Acc No.[id number]:11/28/2024 Patient: Sanjeev CASTRO :1965 A ge:59 Y S ex:Male [address] [place], [address] * Refills Refill traMADol HCl Tablet, 50 MG, Orally, 42 Tablet, 1 tablet as needed, every 4 hours, 7 days, Refills=1 Refill Pregabalin Capsule, 75 MG, Orally, 60, 1 capsule, twice daily, 30 days, Refills=1 * true * Date: Generated for Valarie kirby/Elizabeth/Maameitting on: 0 04/15/2025 09:18 AM EDT
--- OUTSIDE RECORDS SUMMARY | 2025-03-07 05:00 | XMS_ITS ---
Author Organization [facility] in [place] Address [address] [place] [address] Care Team Providers Care Lubricating Machine Tender Name Role Phone Dev Ch DO Primary Care Provider Kyler Armenta [phone] REASON FOR VISIT 6 month f/u Encounters Encounter Location Date Provider Diagnosis [facility] (PODIATRY) [address] [place] [address] [place] [address] 03/07/2025 Kyler Caldera Plan Of Treatment No Information Progress Notes * Sanjeev BLACKBURN ADOB:[birth year] (59 yo M)Acc No.[id number]:03/07/2025 UNLOCKED PROGRESS NOTE Follow Up Patient: Sanjeev CASTRO Provider: Charisse Caldera DPM, MS :1965 A ge:59 Y S ex:Male Date:03/07/2025 [facility] [address] Pcp:Dev Ch DO Subjective: * Chief Complaints: * 1 . 6 month f/u. * Medical History: Objective: * Vitals: Assessment: Plan: * Treatment: * * Electronic signature of Timothy Caldera DPM on 04/15/2025 at 09:18 AM EDT Sign off status: Pending Visit Status: O FF CANC (OFFICE CANCEL) * Provider: Charisse Caldera DPM, MS Date: 0 03/07/2025 Generated for Printi ng/Elizabeth/Minerva on: 0 04/15/2025 09:18 AM EDT
[2025-04-15 09:06] VITALS: BP 156/94; PULSE 67; TEMP 36.9; O2SAT 97; BMI 34.2
--- OUTSIDE RECORDS SUMMARY | 2025-04-15 09:18 | XMS_ITS | Clinical Summary ---
Author Organization [facility] Address [id number] [address] [place] [address] Care Team Providers Care Court Worker Name Role Phone Unavailable Primary Care Provider Unavailabl e Social History Tobacco Use Types Packs/Day Years Used Date Smoking Tobacco: Never Assessed Childcare Answer Date Recorded Childcare Unknown 10/03/2020 Employment Answer Date Recorded Employment Unknown 10/03/2020 Purpose - Life Answer Date Recorded Purpose and direction in life Unknown Sex and Gender Information Value Date Recorded Sex Assigned at Not on file Legal Sex Male 8:13 PM EDT Gender Identity Not on file Sexual Orientation Not on file Last Filed Vital Signs Vital Sign Reading Time Taken Comments Blood Pressure - - Pulse - - Temperature - - Respiratory Rate - - Oxygen Saturation - - Inhaled Oxygen Concentration - - Weight 104.3 kg (230 lb) 10/28/2020 9:00 AM EST Height - - Body Mass Index - - Plan of Treatment Health Maintenance Due Date Last Done Comments Depression Screening 1979 Tobacco Screening 1979 Adult BMI Screening 1985 DTaP,Tdap and Td Vaccines (1 - Tdap) 1986 Zoster (Shingles) Vaccine (1 of 2) 2017 Influenza Vaccine 05/21/2025 Medical Devices Not on file Insurance [employer]
--- OUTSIDE RECORDS SUMMARY | 2025-04-15 09:18 | XMS_ITS | Continuity of Care Document ---
Author Organization [facility] Address [address] [place] [address] Insurance Providers Payer Plan Claims Address Claims Phone Policy Number Group Number Relation Employer Guarantor Name Guarantor Guarantor Address Guarantor Phone [employer] [address], [place] [address] [id number] Spouse Unknown Unknown [address] [place] [address] [employer] [address], [place] [address] tel:[phone] [id number] Self Sanjeev Bere 1965 [address] [place] [address] [employer] PPO [address] [address], [place] [address] tel:[phone] [id number] Self Sanjeev Bere 1965 [address] [place] [address] Problems Unknown Problems Results No Results Allergies, adverse reactions, alerts No known allergies and adverse reactions Medications No administered medications reported Vital Signs Date Vital Result Comment 09/19/2024 Body Height [id number] m Body Weight 106.26225576715 kg Body Mass Index 33.72 kg/m2 Social History No smoking Hx information available
--- OUTSIDE RECORDS SUMMARY | 2025-04-15 09:18 | XMS_ITS | Clinical Summary ---
Author Organization [facility] Address [address] [facility] [place] [address] Care Team Providers Care Area Development Manager Name Role Phone Dev Ch MD Primary Care Provider [phone] Allergies Active Allergy Reactions Criticality Noted Date Comments Cephalexin Hives High 2000 Medications traMADol (Ultram) 50 MG tablet 02/23/2024 Active Pitavastatin Calcium (Livalo) 4 MG tablet Active allopurinol (Zyloprim) 100 MG tablet Active cholecalciferol (Vitamin D-3) 25 MCG (1000 UT) capsule TAKE 1 CAPSULE (125 MCG) ORALLY DAILY FOR 90 DAYS 09/10/2023 Active lisinopril-hydr oCHLOROthiazide 20-25 MG tablet Take 1 tablet by mouth Daily 03/13/2024 Active meloxicam (Mobic) 15 MG tablet 02/29/2024 Active metoprolol succinate XL (Toprol-XL) 50 MG 24 hr tablet Take 50 mg by mouth Daily 03/21/2024 Active Active Problems Problem Noted Date Diagnosed Date Hypertension 05/17/2024 Kidney stone 05/17/2024 Ankle joint replacement status, right 09/10/2023 Immunizations Immunization Administration Dates Next Due Influenza, injectable, quadr ivalent, preservative free 06/17/2023,06/23/2022,06/04/2021,2019,05/18/2019,06/17/2018 Influenza, seasonal, injectable 06/14/2020 Tdap 02/22/2021 Zoster, Recombinant 07/01/2021,02/22/2021 Social History Tobacco Use Types Packs/Day Years Used Date Smoking Tobacco: Never Smokeless Tobacco: Never Tobacco Cessation:Counseling Given: Not Answered Alcohol Use Standard Drinks/Week Comments Yes 3 (1 standard drink = 0.6 oz pur e alcohol) Sex and Gender Information Value Date Recorded Sex Assigned at Male 2024 8:54 AM EDT Legal Sex Male 7:35 PM EDT Gender Identity Male 2024 8:54 AM EDT Sexual Orientation Not on file Last Filed Vital Signs Vital Sign Reading Time Taken Comments Blood Pressure 155/100 02/21/2018 12:00 PM EDT Pulse - - Temperature - - Respiratory Rate - - Oxygen Saturation - - Inhaled Oxygen Concentration - - Weight 112 kg (247 lb) 06/15/2024 2:59 PM EDT Height 180.3 cm (5' 11 ) 06/15/2024 2:59 PM EDT Body Mass Index 34.45 06/15/2024 2:59 PM EDT Plan of Treatment Health Maintenance Due Date Last Done Comments CT Colonography 1967 Colonoscopy 1967 Colorectal Cancer Screening 1965 FIT-DNA 1967 FIT 1967 FOBT 1965 Sigmoidoscopy 1965 Influenza Vaccine (#1) 2025 , 06/17/2023, 06/23/2022, Additional history exists Insurance [employer] Member Subscriber Plan / Payer (Ef fective 2024-Present) Name:Sanjeev Blackburn Relation to Subscriber:Spouse Name:ISIDOROABENA Winters Date of :1970 Address: [address] [place] [address] Payer ID:Not on file Type:Not on file Address: [place] [id number] Care Teams Area Development Manager Relationship Specialty Start Date End Date Dev Ch MD [address] [place] [address] PCP - General Family Medicine 05/17/24
--- OUTSIDE RECORDS SUMMARY | 2025-04-15 09:19 | XMS_ITS | CCD ---
Author Organization [facility] Care Team Providers Care Data Governance Consultant Name Role Phone DEV PERLA Unavailable Unavailable QUIN ROBISON Unavailable Unavailabl sharath PHYSICIAN, DEFAULT Unavailable Unavailable PHYSICIAN, DEFAULT Unavailable Unavailable DEV PERLA Unavailable Unavailable ROS CM Admitting Unavailable ROS CM Attending Unavailable ROS MC Consulting Unavailable ROS CM Admitting Unavailable ROS CM Attending Unavailable JAIR CARPENTER Admitting Unavailable JAIR CARPENTER Attending Unavailable MISSAEL SCHAEFER Admitting Unavailable MISSAEL SCHAEFER Attending Unavailable DEV PERAL Primary Care Unavailable Dev Perla MD Primary Care Provider [phone] JANINE ISRAEL Attending Unavailable ELI GARCIA Referring Unavailable JANINE ISRAEL Attending Unavailable DUSTIN ZUNIGA Attending Unavailable DUSTIN ZUNIGA Attending Unavailable DUSTIN ZUNIGA Attending Unavailable Dev Perla Primary Care Unavailable Missael Schaefer Admitting Unavailable Missael Schaefer Attending Unavailable Missael Schaefer Attending Unavailable Dev Perla Primary Care Unavailable Missael Schaefer Admitting Unavailable Dve Perla Primary Care Unavailable Daysi Silva PA-C Admitting Unavailable Daysi Silva PA-C Attending Unavailable Dev Perla Primary Care Unavailable Dev Perla Primary Care Unavailable Janine Israel Admitting Unavail able Janine Israel Attending Unavail able Dev Perla Primary Care Unavailable Janine Israel Admitting Unavail able Janine Israel Attending Unavail able Allergies Allergy Classification Reported Allergen(s) Allergy Type Date of Onset Reaction(s) Facility (3 sources) cephalexin; Translations: [Keflex] Drug Allergy 09-20-2009 [facility] Repository (18 sources) Cephalexin Drug Allergy 2000 [facility] Medications Current Medications Medication Drug Class(es) Dates Sig (Normalized) Sig (Original) acetaminophen 325 mg / HYDROcodone bitartrate 5 mg oral tablet (2 sources) Opioid Agonist Start: 07-23-2024 End: 07-26-2024 take 1 tablet by mouth every six hours for pain HYDROcodone-aceta minophen ([place]) 5-325 MG tablet Indications: S/P carpal tunnel release Take 1 tablet by mouth every 6 (six) hours if needed for severe pain for up to 3 days 12 tablet 07/23/2024 07/26/2024 Active Start: 07-07-2024 End: 07-10-2024 take 1 tablet by mouth every six hours for pain HYDROcodone-acetaminophen ([place]) 5-325 MG tablet Indications: Post-operative pain Take 1 tablet by mouth every 6 (six) hours if needed for severe pain for up to 3 days 12 tablet 07/07/2024 07/10/2024 Active allopurinol 100 mg oral tablet (18 sources) Xanthine Oxidase Inhibitor allopurinol (Zyloprim) 100 MG tablet Active cholecalciferol 0.025 mg oral capsule (17 sources) Vitamin D Start: 2022 take 1 capsule by mouth once daily cholecalciferol (Vitamin D-3) 25 MCG (1000 UT) capsule TAKE 1 CAPSULE (125 MCG) ORALLY DAILY FOR 90 DAYS 09/10/2023 Active hydroCHLOROthiazide 25 mg / lisinopril 20 mg oral tablet (17 sources) Thiazide Diuretic, Angiotensin Converting Enzyme Inhibitor Start: 2023 take 1 tablet by mouth once daily lisinopril-hydroCHLOR Othiazide 20-25 MG tablet Take 1 tablet by mouth Daily 03/13/2024 Active meloxicam 15 mg oral tablet (17 sources) Nonsteroidal Anti-inflammatory Drug Start: 2023 meloxicam (Mobic) 15 MG tablet 02/29/2024 Active 24 hr metoprolol succinate 50 mg extended release oral tablet (17 sources) beta-Adrenergic Oswaldo Start: 2023 take 1 tablet by mouth once daily metoprolol succinate XL (Toprol-XL) 50 MG 24 hr tablet Take 50 mg by mouth Daily 03/21/2024 Active pitavastatin calcium 4 mg oral tablet (18 sources) HMG-CoA Reductase Inhibitor Pitavastatin Calcium (Livalo) 4 MG tablet Active traMADol hydrochloride 50 mg oral tablet (18 sources) Opioid Agonist Start: 2023 traMADol (Ultram) 50 MG tablet 02/23/2024 Active Problems Active Problems Problem Classification Problem Date Documented Date Episodic/Chronic Essential hypertension (18 sources) Hypertensive disorder; Translations: [Essential (primary) hypertension] Onset: 05-17-2024 05-17-2024 Chronic Other connective tissue disease (18 sources) History of arthroplasty of right ankle; Translations: [Presence of right artificial ankle joint] Onset: 09-10-2023 05-17-2024 Chronic Other nervous system disorders (2 sources) Carpal tunnel syndrome of right wrist; Translations: [Carpal tunnel syndrome, right upper limb] 07-20-2024 Chronic Other nervous system disorders (2 sources) Bilateral carpal tunnel syndrome; Translations: [Carpal tunnel syndrome, bilateral upper limbs] 05-18-2024 Chronic Other nervous system disorders (2 sources) Carpal tunnel syndrome of left wrist; Translations: [Carpal tunnel syndrome, left upper limb] 06-15-2024 Chronic Other nervous system disorders (1 source) Postoperative pain ; Translations: [Other acute postprocedural pain] 07-07-2024 Episodic Other non-traumatic joint disorders (4 sources) Pain of right wrist; Translations: [Pain in right wrist] 07-20-2024 Episodic Other non-traumatic joint disorders (4 sources) Pain of left wrist; Translations: [Pain in left wrist] 08-28-2024 Episodic Other screening for suspected conditions (not mental disorders or infectious disease) (1 source) Elevated prostate specific antigen [PSA]; Translations: [Elevated prostate specific antigen (PSA)] Onset: 08-16-2023 Episodic Past or Other Problems Problem Classification Problem Date Documented Da te Episodic/Chronic Calculus of urinary tract (18 sources) Kidney stone; Translations: [Calculus of kidney] Onset: 05-17-2024 05-17-2024 Episodic Headache, including migraine (1 source) Headache; Translations: [Headache] Onset: 08-28-2017 Episodic Results Test Name Value Interpretation Reference Range Facility Consent Formson 10-05-2024 Consent Forms [id number] [facility] 11-10-2024 Coding Summary HTMLBase 64 WvctppxaCLs0cFg+PGhl YWQ+AB0GMKPxK87gnBIu kI0vM7TIDNaLRoazEJUG LBrDUbPqfuIdXQ1xyNWw ZXJu IC8+RB8mSIQlNvhfhPIj q0B4nAA1A18hng8dDXsh nAN4IIMgBsFxgyhco5mq cLz1BIwiTrixFfQp GKEnoL75SFR8rE69Ye70 eGYwfXNzk8jyfSd4KjDx NSUzNIS3dDkeKWhwj4Xc XHEiL14qnXHwd6U8 IGNvbGxhcHNlOyBlbXB0 bG7zITpnwoaau8kbupxg Ldh1nx06qRKyf1D0oIW1 C3JpmwH7DJZmuWJh SfbopBRKwT5tstaoq6fa ysnyEjNqEMMnDXa9TCq6 YSTpkVqjSfTfKM72OCK4 ETZnfuDaL5AjJWKs hIrmSpB5x1U9Nm4EW8YZ WsdpB0VOXWMSGMnkfMV+ GX86nb53K9VfBmxuWbg4 YANvGYB5kRE5aJ9k EHYwCZjgp4W1nWX3J1Mz ngCywy8ar6bbHFXnHPtj I89dpXUgl1T8TWKtwHE9 ULEawRyvMiChlE56 Oyc+AQXtyAdcr2QaHsci r5gqe8xcmEd3PmqfXBNw ezDswBvfMVU1v6JwKw4d JEIksGA5kHA2gJ1s NxMiEuT5PDkfK184OzHy rJSlUwrfT56xR1KvyYX+ GHZtIdc9BGWfpKpiKA9w F7QkABMwyoditSRh sScrQV8wPQSilqhhDWFw aB7tLSWjJ3e0AtIwAgG5 GLxbZ0ZkCPSqvicsLh12 oR9bOrMeCeZ6PGjl Q1ZetbU1UNBgcGIeCXmq AYT4W03bu8J1VQKwRQZp KFU8aKZ3cT3eoCdzyvjr bGVmdDsgdmVydGlj JWpvLVbsF751KBOtuTtc PkNvZGluZyBEYXRlOiAg MTEvMTAvMjAyNDwvdGQ+ NZAhYQP1pSyiOTUp pJCvUAhpCu1geRkctUco QW2iTZIzfhqwJVWdiW0x NVQfbQAqiVczDV7zBLJw ffjek660OtRuKFG4 FNHyrZRfE8RrhY8fAnAo NKKfOXOuG3RscRToBIng R843XFfeNxR3IHDxjkLd K1XqTKXtuBpwScA9 t9J4Sl0Kh3FuqqneS3Bz hNIjCrVdEvekAHk2C3Wr PjwvdHI+TC28SLVdNF97 BDz6CXO9mRbeOGqx FGTnY2IjuQ4eQiVkCXWd ZGRkOyc+PHRhYmxlIHdp ZHRoPScxMDAlJyBzdHls IK7zRw6oKQArBQVs xGmjgKEcGcVye5waCVMb NWhlRV2ijEboS5MsqUI3 XEIem7t7Sm09G23eN9Jv dXA+HFHgnNN2wPI7 mL8gKcIxXaZ2JRffM096 ZsChnMIsGvewh4trw2in jOj9QoX8QKMageBbaCcu PJG7x0MvRb86X82e IHdpZHRoPSIxNSUiIHZh qKbmkr6cqZ5tVo5+PGNv iOG7nZR5dF6pPrXtAlR4 OXcrC206AoNmpDGe Dtche6keg2almEk8VyAf YNEvprIifKzdBGG5a4Wk Ef42B6CthZfhz0LzCnz2 rg26hWSqk2U8wEW2 Z0QhSMLpzigtoAXbuGzb CF2cVXCqgwnmRMGhsP1v AYIvJ0w8ObPlOeC1IWju F4FfikH6ECKqdCCe KHWdwKWAuX8mvcmox9aw hiizZlNyDJIwTDm2OZh4 GROwmHkfPlRkVRK6ArX7 RDC4mFLdaH8tcBmt iwhrtK1hJia+AFG7uSCf yXQRCS7jRdbviRJ+PHRk LIX9sGdjALudFLMsmK0a ZAQjR3o4QtAeGvP7 NSqcY4EeilK3DERmzZPy YJZexDXPdU0cgcuay5xy bnngJoPoYGFbMNe2ZEd7 LWFsaWduOiBsZWZ0 YkF7YNZ0cLKznS9fiElx zrczcV2vPhs+QmlydGgg EFW3GSi7P9WyOes0QZRx oCibAN9qlBNxFDeg Th5cwHxkdDuqVU4cSJEj tjlmt942XuLmt0leZITf qKAfEPdmEKG7F75sn7X6 TDYlZMPkYOD0sKA7 bZ6rtAarrmntkJDnqQmt eyFmvWmyEQalLEpdA546 HAAlrTacIjAdGTe6G2Rg Jvc0JGSvdFplAY5d oRIqOMreIw7ifVrfvLxp CX0mRIVuulnkb561KhTd k6esJZRcsHXxLTouCCO4 S62tc5W9XGDeURFc GYE1sZI3gP9qwMhrfeim bGVmdDsgdmVydGljYWwt CRadK494OLZqyYbvHgJm iSs4V1BkGsc7HHYx pRgePC7saNOeTVyfUq6c tKaerXduRN9xVLDvbnbn w444RzWly9aqHKYvwCPf CNxfZUT6D73ao0V2 AKFpYDZgBKC9eAI8vH7o bGlnbjogbGVmdDsgdmVy vHxbSZbwNWkaD572QAIt cDsnPlBhdGllbnQg JOllTEu7N0DiPfaflWX+ UU63DUWyOV89oRFzgIZd h7xnnEd5IcThEELpFLH6 uAxwZZugy4KgCLJo L47egRAiz9K4QLPwdCas nIHhCpFytQA2iD7jKZda dnnhp2zezukbUided4vu fs53rF65R25eUImg ZHRoPSIzMCUiIHZhbGln en9zjJ9lYy9+PGNvbCB3 eUV7qW6vEEQmYrR9RTwb V882OwRnuGIgYzng p5dkp9mplIj2OhN5CGVo mmWjwZxjZSL9e5XqSp88 E75kZJtjIWQgGRAtYVAd INDgzWktxt3nfO2c Ii8+GWOxyNQ9zCH1lW0o KcJqUbZ5LMtlR839DnKr aMSuWmsmP99hN4YrpKZ+ MSTwTjx6XLYwqRov DM1otDNeSUbxGi5zTPM7 ZkCuTiHfRDkxD7LwCZRy yfsgdiwvaJY7BUSjNVGh qN48Mv3irSgkHWKe sNNIwP4dnhidu9wahfvt NsCnSIKtIXl0LFa7RMYc wOalLaYzZXW5SmA3SRI2 hBFggQ7ysEolduyu kK3fN5EpWSDursqwDd92 cF9iVgCaPxL7GLtyPml+ QRTLXQPOA4SnPDaRYjgj JJoKUF18U8CzKtb5 GJFmcRdkFV5yiMFiTCat Ga4cjVgndUjgRC7jXDYs uzfoOPEthG9dRNBonDNm lXkuLH2oCVJczxjb h079TmKiFGX9NQZxtKWu M7QcrW8yKlXmKQTyFMCy J8CwtLCtWCsdL008VBei SuO3KNRlktZeZ0It YHYdjSrzPuN1o3G7Ct6i EZ9wKy4tDWE8MC05JC59 vGLcp5P6aAC1J3UdKFTe pgysnjngcDJ0JIVh DMVqcP59sQSgIWghUx9q s0M7q819TYMhXKEgvI15 Kj8jmLnaPOOagDZAxS1o xrzep8dgytkoPfOn TJQaIXz8OTt4EWWxsRyz IaZoGAU8BcM6RQD6rAEx cP7wgUgnjgoagD6tQlb+ ZBmbAENkyhJ0S0Wo Ioq8FJUgbByqYX6tcRZp HJelUw5qjNfgtOsqQM8o MIKeqtjnPFWxpD6gTQSi sWVwlMeiQL5kIAQk cugqi977HpPwNZS0VYYz pNAqV6HhjI8vQrVpBAPj LXVwJ0JqqDWoYVosQ414 QAuxQkG5VCGzihNs W6StJCWnzMtjYoD6o3U3 Ml5BCBxCEW70FJ58lFFn d8J6cSZ0Y3PaQDVvjbmp uafzcYU7HGGiPKNc lA79nZJpOQjeHv7yt6Q5 b357VWKmEYBglG38Ie4d mTsfPEVxaRVAkI1tykbt x5iijmylHfYcOLAm AQt0USw6UECaiFhrKmUl TGR1BnV2NOM7dJGoyQ2e zSxzzzztkL1wYyf+RGF5 PJC3yijbfis3B7Vp PjwvdHI+JC70RIIiKT95 hNAgwGDhm1cfjNv8QuNh LBSwWKA6fZriTMeoj2Kl VOEtX30vwCDcg2Z5 IGNvbGxhcHNlOyBlbXB0 gO3lEKsunoemn9bjoojq Iphuu2ilbc49iD93P96x IHdpZHRoPSIzMCUi MIYnjBfhfd6wdP2mVk1+ KHJdrGD8eIA6cE3zVsKy FpU7GVioW901VqHlaZXx Qydgo0jns4scvAh0 IjIwJSIgdmFsaWduPSJ0 m5SdCw57V35aKNpzCMLb ZBFtMQUwVINvaFxmjr7e jW0fLr0+TA8ya2cf zk15yB88sQH+PHRkIHN0 vWtjQWuaSTSazE5yAYdm JpE6XITgXwUngM85hNXk DXgcOl6ebPaqqAjh VZ1hEMXsifxtx245UtLb a3bvPINobBCqATpoIXN1 D83ay3W8XYJfMXRwWEG9 aIY1xN3vrLzjbbgf bGVmdDsgdmVydGljYWwt BBgcU372OXJqlVxbDyXc qSGjX6fjopMQIO7oZxoh dGQ+IGBaBSW9qGao ZFjmFCNzdV8hYQJtZ1z8 ZfHnBiV6JYzzL1NnadN9 RFLqvGUiYSTheHZBxL7e mfecy5zpsjsaZxPq QCAgJZi5JCg5LTEwtUpj LrIfEUC6RdW4IWK3sYBm dQ7zpXjsocvemR8bBdp+ RklOOjwvdGQ+PHRk WGR4qAdbEEorSUDxkZ4m VJGgY9h6LbIfBnW1EZgf Q2YrorY5MFPrwNBqRRMg bPTEpU1ggamgl8ml wumxPnFwHFLkEBt6DOb1 DDSjkOpcAnUkECY2FkT9 ZHA7xIAxzV5jcYnrswui gE5gGuy+TVJOOjwv dGQ+MUXlVBK3cJyoFEcs LQItxY0jYPIoO5u1TxJy EhY3TPccT1XiqiR1YLLi dPZqAZFzjWWBkC2l ypziq3wyuqcnAyOjHVVb CTb0ACy9QUJltEogQrGt MZZ9XeB6GJQ2tCZuqQ8w kJnaverjxJ9mBxa+ EMH7BOY0RW79DS29L1Yv PjwvdGFibGU+PHRhYmxl IHdpZHRoPScxMDAlJyBz aCbcMB0rMe0dZECh LWN (more content not included)... [facility] Consent Formson 07-25-2024 Consent Forms [id number] [facility] Instructions [id number]# [facility] 07-24-2024 [place] [address] Patient Discharge Instructions Name: SANJEEV BLACKBURN JOSE ARMANDO : 1965 Patient Address: [address] [place] [address] Primary Care Provider: Name: Dev Perla DO After you are discharged if you find you have any questions, please, call [phone] ext [phone] to speak to a nurse. Discharge Diagnosis: Carpal tunnel syndrome, right Prescription Information: If you have been given a prescription for narcotics, seek immediate medical attention if you have any difficulty breathing or any sudden status changes such as confusion and sleepiness. If you or anyone you know is experiencing suicidal thoughts, mental health, alcohol and/or drug addiction problems; contact the [facility] 12/04 Crisis Hotline -Text 4HEJU ra 348365. If you received any narcotics, sedation, or [...] business decisions or sign any legal documents [facility] would like to thank you for allowing us to assist you with your healthcare needs. The following includes patient education materials and information regarding your injury/illness. SANJEEV BLACKBURN has been given the following list of follow-up instructions, prescriptions, and patient education materials: Follow-up Instructions With: Address: When: Dustin Zuniga [address] [place] [id number] Business (1) 08/03/2024 2:30 PM Medications During the [...] unit(s) Oral (given by mouth) every day. hydrochlorothiazide- lisinopril (hydrochlorothiazide -lisinopril 25 mg-20 mg oral tablet) 1 tab(s) [...] unit(s) Oral (given by mouth) every day. hydrochlorothiazide- lisinopril (hydrochlorothiazide -lisinopril 25 mg-20 mg oral tablet) 1 tab(s) [...] 3. 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 4. Change your dressing in 1 day and apply an lex bandage as directed with the thumb tucked towards the palm of your hand. This keeps the tension off your incision. 5. You may shower in 1 day but do not submerge your hand under water. Put a 4x4 gauze and the lex bandage back on after you shower. 6. If you have any problems or concerns, please call the office at [phone]. 7. Follow up as scheduled. Viruses or Bacteria What?s got you sick? Antibiotics only treat bacterial infections. Viral illnesses cannot be treated with antibiotics. When an antibiotic is not prescribed, ask your healthcare professional for tips on how to relieve symptoms and feel better. Usual Cause Illness Viruses Bacteria Antibiotic Needed (more content not included)... [facility] Intra-Op Record Summary Primary Physician: Janine Israel DO Finalized Date/Time: 07/24/24 13:50:08 Pt. Name: SANJEEV BLACKBURN/Sex: 1965 MALE Med Rec #: [id number] Physician: Janine Israel DO Financial #: [id number] Pt. Type: D Room/Bed: / Admit/Disch: 07/24/24 [...] DO CSFA Role Performed Surgeon - Primary Wax Coating Machine Tender Hospice Consultant Time In 07/24/24 13:26:00 07/24/24 13:22:00 07/24/24 13:22:00 Time Out 07/24/24 13:43:00 07/24/24 13:50:00 07/24/24 13:50:00 Procedure Carpal Tunnel Carpal Tunnel Carpal Tunnel Release(Right) Release(Right) Release(Right) Last Modified By: Marybeth Baker RN, Debra RN Myers, Debra RN 07/24/24 13:48:51 07/24/24 13:48:51 07/24/24 13:48:51 Entry 4 Case Attendee Eunice Grant RN Role Performed Wax Coating Machine Tender Time In 07/24/24 13:22:00 Time Out 07/24/24 [...] Out Time 07/24/24 13:28:00 Participants [facility]ojana Balderas [facility] [place] Debra RN Last Modified By: Marybeth Baker [...] Prep Syntegrity P (more content not included)... [facility] Pre[facility] Pre-Op Record Summary Primary Physician: Janine Israel DO Finalized Date/Time: 07/24/24 14:08:57 Pt. Name: SANJEEV BLACKBURN JOSE ARMANDO LloydB./Sex: 1965 MALE Med Rec #: [id number] Physician: Janine Israel DO Financial #: [id number] Pt. Type: D Room/Bed: / Admit/Disch: 07/24/24 [...] Signed By: Ernesto Parrish RN 07/24/24 14:08 [facility] Patient Handouton 07-24-[address] ISRAEL'S POST OPERATIVE CARPAL TUNNEL INSTRUCTIONS: SURGEON'S WRITTEN INSTRUCTIONS: 1. Keep your hand elevated above your elbow for the first 24 hours after surgery. 2. Wiggle your fingers frequently while awake. 3. 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 4. Change your dressing in 1 day and apply an lex bandage as directed with the thumb tucked towards the palm of your hand. This keeps the tension off your incision. 5. You may shower in 1 day but do not submerge your hand under water. Put a 4x4 gauze and the lex bandage back on after you shower. 6. If you have any problems or concerns, please call the office at [phone]. 7. Follow up as scheduled. [facility] Coding Summaryon 07-12-2024 Coding Summary HTMLBase 64 DqdyeqbdKHr2cWs+PGhl YWQ+WZ1MLASrV71cqNVj cH9oI6BYABqOOxmoPTRN RAuIWnQmbpVpLZ5ebMOk ZXJu IC8+WT5xTGNzFvjcwHLv y9U6pID7E51opu3yFPfv zGT2ILTpKhBslniwy0mo sVl2IUwgXphfRjSk OTDfyL86TVF3yN72Ha91 qFZqgFNpa0jcsHc3LzLb UYHhEON4cWszBSbgr4Cn KTLzZ18qyIGnk3H4 IGNvbGxhcHNlOyBlbXB0 oO2rOCdiocoyq4fowssp Gsx2pa34wFMad5O4vHQ6 S2YkncG2MGVrwWCi ThumwFQRyJ1ycllbw7xe fatgFeIhQUUaNGi6CBg6 JLBzcQapWeLxEB91KIO7 LRPswvDrI4KjADCl jSvnMnN8n6P4Xv8FP3YF MtjwK6HFPNBUGMpusOP+ DR01co27J5IbEkmuYfs8 CLBnTQZ4xGV2oL0o OUTdBQloe1Q4lXY7P8Qb heQjrt3qk5iiZRBqFYzq D55erBJsn6H3DDMlzKA4 YBFewAeoSvVveU78 Oyc+TIYkeUkqn5UbDjif g8gqz7apcXz8QazfEMPc beJyjBzbBSI1q6JbUs0g QQUysND0uVV1qB9p XiRpOaI1UFwvG259KpXx hRObDcqyS23dX8FcpVS+ KCUeNye7AARjmKbkBP5u L3DxHCKnojzfmBZb zHktWX7gYYSororbTZSq sD0kYBYgU6m7CsQjAtH9 CFgkO6ToGXGdtlvmHf87 bP6lHkHeAzJ5MFlp B2TjlrH3TIKgdYRcPWie RUJ2Y68hd0Q6FBJhMFXx VLK8xYV3nK5eaTjdbfcn bGVmdDsgdmVydGlj FAcyXJziI643ZZOqnTbi PkNvZGluZyBEYXRlOiAg MTAvMjMvMjAyNDwvdGQ+ UAWgPGP1qHcfDAIj iUWnXAatNm7rjMuohSzx UO5dGJKgdgieRFHdmN5k GCDdfDAmdQceDS4nLPBp wqrzt529BbXtNFN6 IUXlvZPfR9LhmV8nKwAl GMUrEJFyM5BwmVKfJTfe H583JZnvMbU9DEPkfwCt N6KySNCkkJuiMwS4 k8Q0Wk7Se4NntfufG8Rz vOChNlVkDuroAOt6M4Oh PjwvdHI+EN27YJXgYY04 UQv2BMG5iNhrPPig DGKjS0JvlV0vSwAlYRGh ZGRkOyc+PHRhYmxlIHdp ZHRoPScxMDAlJyBzdHls XR6aVm2bOVLhPZVj qAwdfRBwZqQjx2mbWYSu JIdcEI3tiBpjB2QjuNT2 NKWpz8t0Om61O20tR4Bi dXA+XXDyrRT7lID0 bK4hSdNnNkO7DIceX666 RuNnkWIbNbjam3ydq7hf uIs2DuN8DHFwlkLkpZqw TQM1m3McAb22X44j IHdpZHRoPSIxNSUiIHZh tBpsmk0frS4xTq9+PGNv oTI2jGR6wH3sJjVlWaC0 KPddF828OoTrbHQa Wzqsp6asx8ixeNf1MuMl VGLfoxHrrMzpGXR9p3Zj Ls63G1BqfSici4TzOxp4 ym16fLJix7G1yNY0 D7OwXPCcdrxquENuyFlv VM4pLUPnjsobNYJuvM8c NZVpA2i3AzEmDrW0VVcg M4UrorZ6WLCirIOj CVFhuRPGsM9fppefv7qr dvprBtLuZDAqQDn6WEp1 VTVzqTtiRxGpXVX8LgG2 NAV6pFFnhN3ikAvy fxomoL3aDvs+KEZ2xPCi pVMXGO8tRxfpzGF+PHRk JKM9gBbdJKaxWHZtmM1w LNMnH0x1WkPxYxP3 ELxfF8HevuF8RPMdzSOt ZHPyiAPXoN4cqhpep6le oetsCdImDHCiYHk3PJm7 LWFsaWduOiBsZWZ0 ZxB0YUA1cAAkcW6xtIxn vayafA7uIsf+QmlydGgg LVK8BIc8N1SsFdc0UECy yOvfJP2pvPMeAYcw Se6fcNdccAafBL7aYFJw rjhrh669BrYbo3tbELZt nIGxBStmYJW0O22qh4F0 IXGbECRkRTF9nMD4 kT6ksAsjqjhcaADabAmh ayFxsVrjWOpyZBiyK933 RFNhsVjuKrVwECo1K8Gf Pjv6YCEtkLqbIE0t iRDxINumRe0xoWtibWwq CB9oNDOcdwgzn453DzYu j5lfEUKlmFHvDJstZLZ8 L57ul0J9OMZbNXHp GHD0gZG0uK3smArogica bGVmdDsgdmVydGljYWwt BOfaF195WVYxeOnzDiLw lMu0W3KkWgt6DNJa iShuHP8htRPdAFbvHw1g nKmnbQwzET9mUBPceaax z164MhCax9iyWAKpyHJm ALrjGEW4V89wu7W5 BGFmTCOyFRO8tVT2hL3c bGlnbjogbGVmdDsgdmVy hBfyHVzuWNyaX924AWXf cDsnPlBhdGllbnQg EMgqYEc4N4FlCafqsWL+ ZW94OWZsHX75iOUaqUAc j2grwPv8VhXqJMWfBDS9 gXzmWNbqb8VlMOSr M53tvNFvz0J7OPUsxUru aAQmLzQuhBN0hS3aZHhi idveu1vwdcjzKwbkj9gd cw85tE68B87pYQrb ZHRoPSIzMCUiIHZhbGln ij7wkY3lKr5+PGNvbCB3 eUL5yY6hQUMfAgT2JKry K016PkLieGAyDxth y0oan8rtySx2XrO6DZRu cyIazJawMSD5b2XvYr04 Q43vCPokXMUoPNEbEFVy CNTylZolig1whY9r Ii8+DMMpySJ5dOI8tQ8f SgLkKfA4FHrdI201DvIz cKPzWqubG89lT1XctKI+ SBPzVyt2YVAkgDto UA1ndIMoFNouKz9xQOX7 ZeFtFhDxWPblP2UjIIPp lgugtcziyID3RWQxZPYc bX56Rc3adSfwKSXm lPZFkB6myivwn2lctoal EyIeQWJoJGj6KGj1PIMs pEuuUkQePUW0YnH4VHK9 tSWfpL1guWustekr nP9sH3FxYHWltozhUs32 wU2kQdVwObD4HUszFqf+ FNGLFCFUC3QnRYsYUeth AKdGXW09I8VdAzu1 GDRgqYqhJM2giCFfYMuh Xz7fnVdjrAqtNT3lPZJb xquzPMIrcS9xDNJlxDWx iNzgCB0nTCIdsowf u176KhVkDMB2OAXhyWQc R5KisK4dVsEiXRRxLEJa B1WuuBLbNCmbP889UAnw YpP9YMOkxwPiF5Js LDEiiPthJdN0z8T8Nf2z WV7mFo7qWZA3II35SV93 zSIgw5T7oFH1X5AqWGXl xguunzathZF7PIQc LBKwhB67sJXgOPsqOo5z e3P7r278FBFmFYYwnC61 Za8umIoaYKBmgHWYbD5v byxcg6yznvgjMwXw ZPZvEMh7XSk7ADQcgZzb TnViLPF1TbF4UZZ5xVYf jR6onDibefrihT4kLkt+ XFqmOYAgjuR8T2Hs Arx3HXJmsBisCU5fqUAh JFojWk9huVznxHurNB7n YHLjellnYODyrW0dGKXo wIHpzAdaGI4fIPOb wtayt064FlHlYGM3KBRr ySQhY4LdxN3sBoQoIGXi YLIqV9RbrWZkOImlX242 BOblYmD4ZNZbxiMp I4WgNGAtjBtqBtV4v9Z4 Vw2VOAqSIX96TX41cNYz e2J7tMW8K2PxDKFyacay vsafeKE1THFgSXZy gA52hJQhUOxmDx9qc6O8 i443ZASlZRWpzE96Lz0r gWxuFVOlpGOSrL1sycfl f3aepneqYiNvWGNz CGy5NLq2NDQodIreKxDd HHO8AcV6XCX4tFYvyB2x lYpbeqngoP8kMym+RGF5 PWA9eoqjzpc9S2Iy PjwvdHI+CM28HPKwUC16 bUDqsAEhw0idqSp6CpEh NVCjFUP6qYjyZKntm2Ab GXOaV76vhILvy3I9 IGNvbGxhcHNlOyBlbXB0 tV0rZEfbkkjno5ajesoi Tkjjw8pprz90vE87V27n IHdpZHRoPSIzMCUi FYBhaSwbue9caQ4cAk9+ SCEhrPM1tQL0hE7dKlIe XiI1DBgsA832OaLwsGMn Bkgxp3lxc5dutNj1 IjIwJSIgdmFsaWduPSJ0 k6CpMk84M28nKSgnJMRd BLXnSANnVOQqtAwtkc2m aY6pFv1+HZ3qk3cx jf44dT58wLH+PHRkIHN0 oGqjPRqjKDJvcF0fRHln AtL4RHDnJwCdcG39sUXv HKvaLv6axVanlLdv PF1nYINasztjv120NkRg l6nrDDRugUQjASewTNY0 A92wx9S4RIElRATsHGV7 xNZ5uG1tlFodmcjw bGVmdDsgdmVydGljYWwt FJvqK243VCHrjUjmLlQy vLXtL8vphvIBXV1bOqvb dGQ+XUPjXXZ8lBch MOxiEBWbgC4cHWOuZ1s5 CyTbBcN7DIdtL6HvlzH7 WBCijGWfPTMnyDXJhY8h pbxif9eexvbdWiIl YNBbIUb6DNy0QHEcgIjl ByOrYHU4TvL4VSL2rGLf gB6qbPmtepsksO5iLxg+ RklOOjwvdGQ+PHRk IRS9lTtnYXrgXHKyfC0b GGFkP6u2WsTiJoC5YUjc F3IszwV7ZYSipJMiWUHy sCNUjW6aqupuj7ii usruXxMlOSYxJQv7GLo3 HMRotUisPhDdLRF2VgC1 QIC0dYDtnG5seCseuqmc pS1yYgt+TVJOOjwv dGQ+IIQqVJU4wSofOPuh KQVofR2cUTPqU9q7WwXm AeY9AWnmG4EgrcF9MRDh sLHaDGTbpYYSiB5i ydqnx4ndbdqmKwBuKPBz EGp4EXa2OAClqFngDmGb EAB2IrC3KSR1uJEtgV8u hFvwuumdcY5iHdg+ EHO9HSX1CC53TG04G1Sp PjwvdGFibGU+PHRhYmxl IHdpZHRoPScxMDAlJyBz mKrnGK8sZn5lZDJd LWN (more content not included)... [facility] Billing Authorizationson Billing Authorizations [id number] #1.00[facility] Consent Formson 07-11-2024 Consent Forms [id number]# 1.00[facility] Discharge Instructionson Discharge Instructions [id number]# 1.00[facility] Inpatient Patient Summaryon 07-10-2024 Inpatient Patient Summary [place] [id number] Patient Discharge Instructions Name: SANJEEV BLACKBURN : 1965 Patient Address: [address] [place] [address] Primary Care Provider: Name: Dev Perla DO After you are discharged if you find you have any questions, please, call [phone] ext [phone] to speak to a nurse. Discharge Diagnosis: Carpal tunnel syndrome, left Prescription Information: If you have been given a prescription for narcotics, seek immediate medical attention if you have any difficulty breathing or any sudden status changes such as confusion and sleepiness. If you or anyone you know is experiencing suicidal thoughts, mental health, alcohol and/or drug addiction problems; contact the [facility] 12/04 Crisis Hotline -Text 4HJOB to 127433. If you received any narcotics, sedation, or [...] business decisions or sign any legal documents [facility] would like to thank you for allowing us to assist you with your healthcare needs. The following includes patient education materials and information regarding your injury/illness. SANJEEV BLACKBURN has been given the following list of follow-up instructions, prescriptions, and patient education materials: Follow-up Instructions With: Address: When: Janine Israel [address] [place] [id number] Business (1) 07/20/2024 2:45 PM Medications During [...] unit(s) Oral (given by mouth) every day. hydrochlorothiazide- lisinopril (hydrochlorothiazide -lisinopril 25 mg-20 mg oral tablet) 1 tab(s) [...] unit(s) Oral (given by mouth) every day. hydrochlorothiazide- lisinopril (hydrochlorothiazide -lisinopril 25 mg-20 mg oral tablet) 1 tab(s) [...] 3. 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 4. Change your dressing in 1 day and apply an lex bandage as directed with the thumb tucked towards the palm of your hand. This keeps the tension off your incision. 5. You may shower in 1 day but do not submerge your hand under water. Put a 4x4 gauze and the lex bandage back on after you shower. 6. If you have any problems or concerns, please call the office at [phone]. 7. Follow up as scheduled. Viruses or Bacteria What?s got you sick? Antibiotics only treat bacterial infections. Viral illnesses cannot be treated with antibiotics. When an antibiotic is not prescribed, ask your healthcare professional for tips on how to relieve symptoms and feel better. Usual Cause Illness Viruses Bacteria Antibiotic Needed C (more content not included)... Normal [facility] MAGR Intraoperative Recordon 07-10-2024 MAGR Intraoperative Record MAGR Intra-Op Record Summary Primary Physician: Janine Israel DO Finalized Date/Time: 07/10/24 13:39:45 Pt. Name: SANJEEV BLACKBURN /Sex: 1965 MALE Med Rec #: [id number] Physician: Janine Israel DO Financial #: [id number] Pt. Type: D Room/Bed: / Admit/Disch: 07/10/24 [...] DO CSFA Role Performed Surgeon - Primary Wax Coating Machine Tender Scrub Personnel Time In 07/10/24 13:03:00 07/10/24 12:58:00 07/10/24 12:58:00 Time Out 07/10/24 13:26:00 07/10/24 13:28:00 07/10/24 13:28:00 Procedure Carpal Tunnel Carpal Tunnel Carpal Tunnel Release(Left) Release(Left) Release(Left) Last Modified By: Eunice Grant RN, Diane RN Kokinda, Diane RN 07/10/24 13:31:50 07/10/24 13:31:50 07/10/24 13:31:50 Entry 4 Case Attendee [facility] ATTENDANT Role Performed Hospice Consultant Time In 07/10/24 12:58:00 Time Out 07/10/24 13:28:00 Procedure Carpal Tunnel Release(Left) Last Modified By: Eunice Grant RN 07/10/24 13:31:50 Surgical Procedures MAGR Pre-Care Text: A.20 Verifies operative procedure, surgical site, and laterality Im.150 Develops individualized plan of care Entry 1 Procedure Carpal Tunnel Release Primary Procedure Yes Primary Surgeon Janine Israel Modifiers Left Marcelo DO Surgeon Comment LEFT CARPAL [...] Out Time 07/10/24 13:08:00 Participants Geovanna Zaidi [facility]OSP[facility] ATTENDANT, Eunice Grant RN Last Modified By: Eunice [...] sources Entry 1 (more content not included)... [facility] Pre-Op Record Summary Primary Physician: Janine Israel DO Finalized Date/Time: 07/10/24 13:43:42 Pt. Name: WALDOTRISHSANJEEV./Sex: 1965 MALE Med Rec #: [id number] Physician: Janine Israel DO Financial #: [id number] Pt. Type: D Room/Bed: / Admit/Disch: 07/10/24 [...] consent correct. General Comments: Pt arrives to w ambulatory. Pt denies cp, sob, cough or flu like symptoms. Pt denies pacemaker/defibillat or or sleep apnea. Finalized By: Ranjana Adkins RN Document Signatures Signed By: Ranjana Adkins RN 07/10/24 13:43 [facility] Patient Handouton 07-10-[address] [facility]RA[facility]'S POST OPERATIVE CARPAL TUNNEL INSTRUCTIONS: SURGEON'S WRITTEN INSTRUCTIONS: 1. Keep your hand elevated above your elbow for the first 24 hours after surgery. 2. Wiggle your fingers frequently while awake. 3. 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 4. Change your dressing in 1 day and apply an lex bandage as directed with the thumb tucked towards the palm of your hand. This keeps the tension off your incision. 5. You may shower in 1 day but do not submerge your hand under water. Put a 4x4 gauze and the lex bandage back on after you shower. 6. If you have any problems or concerns, please call the office at [phone]. 7. Follow up as scheduled. [facility] CMP Standardon 06-16-2024 eGFR Non AA >60 Invalid Interpretation Code [facility] Comment on above: Performed By: #### 7 386350, [id number], 5682698, 8328611, 5779054, 1379289, [id number], 6612469 ####[facility] (DEFAULT)[address] [place] [address] eGFR AA >60 Invalid Interpretation Code [facility] Comment on above: Performed By: #### 7 896123, [id number], 2768513, 3587446, 9709897, 6703235, [id number], 2236670 ####[facility] (DEFAULT)[address] [place] [address] Albumin [Mass/Vol] 4.4 g/dL Normal 3.5-5.0 [facility] Comment on above: Performed By: #### 7 993209, [id number], 5906206, 5026084, 3773670, 5141417, 7266609028, 5237581 ####[facility] (DEFAULT)[address] [place] [address]012 Albumin/Globulin [Mass ratio] 1.6 {ratio} Normal 1.4-2.6 [facility] Comment on above: Performed By: #### 7 752991, [id number], 6278123, 0538305, 7698043, 3336563, 4548992304, 9438391 ####[facility] (DEFAULT)[address] [place] [address] 43176 Alk Phos 58 IU/L Normal 32-91 [facility] Comment on above: Performed By: #### 7 896440, [id number], 0051113, 7715261, 2205111, 4118875, 6510009069, 8936153 ####[facility] (DEFAULT)[address] [place] [address] 18612 ALT [Catalytic activity/Vol] 40.0 U/L Normal 17.0-63.0 [facility] Comment on above: Performed By: #### 7 136897, [id number], 4395197, 4346841, 8802164, 4142449, 0004858827, 7917876 ####[facility] (DEFAULT)[address] [place] [address] 60804 Anion gap [Moles/Vol] 8.9 mmol/L Normal 5.0-19.0 [facility] Comment on above: Performed By: #### 7 846355, [id number], 2597524, 2307203, 5015616, 5803080, 9573132846, 6126088 ####[facility] (DEFAULT)[address] [place] [address] 24908 AST [Catalytic activity/Vol] 31 U/L Normal 15-41 [facility] Comment on above: Performed By: #### 7 642481, [id number], 8703804, 8258083, 5208511, 9562274, [id number], 9192074 ####[facility] (DEFAULT)[address] [place] [address] 22321 Bili Total 0.4 mg/dL Normal 0.3-1.2 [facility] Comment on above: Performed By: #### 7 210638, [id number], 4917217, 9345804, 3494918, 1224828, 2416281936, 1767270 ####[facility] (DEFAULT)[address] [place] [address] 33875 Calcium [Mass/Vol] 8.9 mg/dL Normal 8.9-10.3 [facility] Comment on above: Performed By: #### 7 650713, [id number], 4760108, 7329566, 3551529, 2469501, 2407311769, 0117821 ####[facility] (DEFAULT)[address] [place] [address] 11444 Chloride [Moles/Vol] 103 mmol/L Normal 101-111 [facility] Comment on above: Performed By: #### 7 265039, [id number], 0511620, 4443827, 2561225, 8321837, 2104684337, 0818573 ####[facility] (DEFAULT)[address] [place] [address] 09651 CO2 [Moles/Vol] 28 mmol/L Normal 21-32 [facility] Comment on above: Performed By: #### 7 229056, [id number], 1063026, 6332936, 0842600, 3274165, 8352947025, 1944341 ####[facility] (DEFAULT)[address] [place] [address] 49215 Creatinine [Mass/Vol] 1.11 mg/dL Normal 0.90-1.30 [facility] Comment on above: Performed By: #### 7 582066, [id number], 0719818, 3095765, 1275467, 8060951, 4372594736, 8758363 ####[facility] (DEFAULT)[address] [place] [address] 62358 Globulin (S) [Mass/Vol] 2.6 g/dL Normal 1.5-4.3 [facility] Comment on above: Performed By: #### 7 084151, [id number], 4401683, 2777163, 5572601, 6772716, 8135154359, 6896206 ####[facility] (DEFAULT)[address] [place] [address] 09816 Glucose [Mass/Vol] 89.0 mg/dL Normal 74.0-118.0 [facility] Comment on above: Performed By: #### 7 924209, 6088499848, 6977871, 2805328, 0727765, 8257012, 3298170730, 6118727 ####[facility] (DEFAULT)[address] [place] [address] 87127 Osmolality 277 mOsm/L Invalid Interpretation Code [facility] Comment on above: Performed By: #### 7 290722, [id number], 4878888, 2507364, 3573114, 9399259, 1441706831, 4167896 ####[facility] (DEFAULT)[address] [place] [address] 69613 Potassium [Moles/Vol] 3.9 mmol/L Normal 3.6-5.1 [facility] Comment on above: Performed By: #### 7 098714, 7389391718, 8736941, 2682718, 8695183, 7707516, 6914886692, 3666020 ####[facility] (DEFAULT)[address] [place] [address] 86452 Protein [Mass/Vol] 7.0 g/dL Normal 6.5-8.1 [facility] Comment on above: Performed By: #### 7 812808, 6274203540, 9059404, 1989733, 6871828, 3559579, 1970177498, 6115541 ####[facility] (DEFAULT)[address] [place] [address] 16620 Sodium [Moles/Vol] 136.0 mmol/L Normal 136.0-144.0 [facility] Comment on above: Performed By: #### 7 507724, 8684676178, 7383523, 5359979, 2907998, 6889265, 2559752961, 6815602 ####[facility] (DEFAULT)[address] [place] [address] 69863 Urea nitrogen [Mass/Vol] 28 mg/dL High 8-26 [facility] Comment on above: Performed By: #### 7 759278, 0075930274, 4145804, 1879365, 3087905, 9802120, 3463114782, 3975073 ####[facility] (DEFAULT)[address] [place] [address] Urea nitrogen/Creatinine [Mass ratio] 25.2 mg/mg High 4.6-16.2 [facility] Comment on above: Performed By: #### 7 959586, 2928768559, 5502664, 1299498, 4376842, 3689972, 6072084906, 8156692 ####[facility] (DEFAULT)[address] [place] [address] 86317 GGTon 06-16-2024 Gamma glutamyl transferase [Catalytic activity/Vol] 42.0 U/L Normal 7.0-50.0 [facility] Comment on above: Performed By: #### 7 773328, 0942847129, 2089706, 8640897, 0045673, 5754423, 4557649521, 3309882 ####[facility] (DEFAULT)[address] [place] [address] 57495 Iron Levelon 06-16-2024 Iron [Mass/Vol] 56.0 ug/dL Normal 45.0-182.0 [facility] Comment on above: Performed By: #### 7 185341, [id number], 8142959, 0598949, 4946459, 7786578, 5446640617, 1142209 ####[facility] (DEFAULT)[address] [place] [address] 92988 LDHon 06-16-2024 LDH 233.0 IU/L High 98.0-192.0 [facility] Comment on above: Performed By: #### 7 029514, 2422877390, 3190083, 0062845, 3755689, 9207012, 4918217544, 0532671 ####[facility] (DEFAULT)[address] [place] [address] 49147 Lipid Panel Standardon 06-16 Cholesterol [Mass/Vol] 235.0 mg/dL High 66.0-200.0 [facility] Comment on above: Performed By: #### 7 002955, [id number], 8768826, 4076536, 9198114, 1246978, 8572426058, 1911104 ####[facility] (DEFAULT)[address] [place] [address] 93371 Cholesterol in HDL [Mass/Vol] 41 mg/dL Normal 40-71 [facility] Comment on above: Performed By: #### 7 451547, 9849757929, 8025206, 0667749, 8963357, 9613879, 1225489829, 9588722 ####[facility] (DEFAULT)[address] [place] [address] 22545 Cholesterol in LDL [Mass/Vol] 144 mg/dL High 1-100 [facility] Comment on above: Performed By: #### 7 751117, 1219274742, 6867388, 2485743, 5498339, 3996055, 3390201419, 5363800 ####[facility] (DEFAULT)[address] [place] [address] 69427 Cholesterol.total/Cho lesterol in HDL [Mass ratio] 5.7 {ratio} High 0.0-4.5 [facility] Comment on above: Performed By: #### 7 959673, 4604496840, 7908309, 3086266, 8474367, 8593469, 5285878401, 5933681 ####[facility] (DEFAULT)[address] [place] [address] 30108 Triglyceride [Mass/Vol] 249.0 mg/dL High 0.0-150.0 [facility] Comment on above: Performed By: #### 7 159795, 0385682131, 7665647, 3053148, 5989092, 7052544, 4531996272, 5637831 ####[facility] (DEFAULT)[address] [place] [address] 23654 VLDL. 50 mg/dL High 5-40 [facility] Comment on above: Performed By: #### 7 536867, 2374905971, 7165877, 5733101, 6503345, 5354947, 3223693649, 5869107 ####[facility] (DEFAULT)[address] [place], [place] [address] PSA Screenon 06-16-2024 PSA Screen 4.27 ng/mL High 0.00-4.00 [facility] Comment on above: Result Comment: [employer] Clinical System (Chemiluminescence) Values obtained with different assay methods or kits cannot be used interchangeably. Results cannot be interpreted as absolute evidence of the presence or absence of malignant disease. Performed By: #### 7 343903, 6639766033, 7893538, 6817805, 3173823, 2775977, 2471319693, 2179482 #### [facility] (DEFAULT) [address] [place] [address] 05883 Phoson 06-16-2024 Phosphate [Mass/Vol] 2.9 mg/dL Normal 2.5-4.6 [facility] Comment on above: Performed By: #### 7 749415, 5583402386, 3221715, 4982640, 8890203, 8381937, 9875826334, 1863922 ####[facility] (DEFAULT)[address] [place] [address] 30839 Uric Acidon 06-16-2024 Urate [Mass/Vol] 7.2 mg/dL Normal 4.8-8.7 [facility] Comment on above: Performed By: #### 7 144032, 3360189584, 4174826, 1723577, 8242674, 7164748, 2464742449, 7931380 ####[facility] (DEFAULT)[address] [place] [address] Coding Summaryon 06-13-2024 Coding Summary [employer]Base 64 GgseudzvKQh4pCe+PGhl YWQ+SS4KAKGaS78kzWSf pK3hS5XOOWxCTmstWFPP YHtAEfLzatTjQA9epVUv ZXJu IC8+RJ7yUXTfOupkdRVb k9X9kJH1P87adk3dFPfp oDV0IAJgSeZpbeklx2bt nEw8VLgkCfbiLrKh LOWblZ04UFQ2xI85Vy91 xLCvrCQqb9amhQu9ChFv WSHoOVS0yFpeRSiae4Nn VJLiI63wiIQks5O7 IGNvbGxhcHNlOyBlbXB0 pY2lJSdaxshtm9wkaamk Iio2bg41tBHcm4N9sSW4 S0GhqjF8RDNvdUDo QshkrVGIlX3nmbwoy7ld ttkcAuUpAZHjMIp0XGi6 OAYhrYrbOaVuEQ11SSD9 PMXwhpYxS1TwFMTa pSvlVfM9s8C9Rz4UR3ZE CoshW7WIMQUIUHslbZQ+ KQ38lt06J8MuYjmqMwf2 AWCmGTR8jYC9kA3w ECFlMYgdf2F0qHF0W7Sv tdUmtt4qd8gaYAWkAKyd B81ubYWdy9B2WQKriMO0 XFXsaIvoUyXabQ58 Oyc+TFSmgBizc6JpGivh m2eat0hstGa3XyzqMZRt mvGdcJmgCNO9b0RuIp4z ARVgyXC0cSU4hH3r NgFuSbT3GOweE339EdEt mUMoFbhdV92eK4QqwHN+ YKOhJvb7ILNxhAitTD2c L7WzRFGdntumkLEw mVxnZZ9gEDJuyptoVSZu hW0dLNUuW0i0PhDoFvW3 LYpvX3WqCSXlsaxtMu82 rQ0mJtVcVjM2GPse Q5PwlsF8HCNidYBdPQii HZX7R88ng5L3QEJnZHHb RHM4rGL3dJ8nhQgqtiur bGVmdDsgdmVydGlj GBjkATqsH666MFNquGey PkNvZGluZyBEYXRlOiAg MDkvMjQvMjAyNDwvdGQ+ CYPuFTH7fRszBLZq uDOtZBifDp1hdOvnaKjm KA3tQDDpvopxSCAegP7a QSDmdBZjzMhdPS7iZBLm nszfh720EtEpLQF7 HWUhiHCkO0LyeH2rCdLv JUJxSFYgA4ZkdDXnIBnt S589EHmtDhH1UBNsxpZo T8KnSJJiwRdqBrR8 g0Z4Nm6Za7QylhlaA8Bb uXVsIcGkGevhLAc5I2Ac PjwvdHI+JW72FQDjDK85 GCr6OEM0zRwkMCgj DBRrJ2DhuF5vXuThXSAf ZGRkOyc+PHRhYmxlIHdp ZHRoPScxMDAlJyBzdHls RX7dXo8tCXAjMJWh zOaaoDOaLdKep5giBPOb BLllQR6unEzxV3CpePN0 NWMre9l2Uh26M48vZ9Jd dXA+BPZdqVR0nBK1 fS4nYrGzAmY6BUmuB658 VdWfgGJzZshhi6dms7xe qBw0NuF2ABXjjkMgyAhl YQN7p7HdSq98D62e IHdpZHRoPSIxNSUiIHZh fTagky4vuC4qUq9+PGNv nNT5xQV7uV1eAjDoIiA4 BCxeH661ZcTcgLZv Omjwp2zvt4gqyCq2FqUb SCClhdIhoUfxPGI0a8Ib Bw55T6OrwWeoc9IhXhk8 ql14gIWdh2T9pES6 W6ZjOUHxeinhaVShpXmj CO9xMRKpyylvCSSujQ3b GIPxB0y4YtGlVwV0CKya N1SaylR9HBFadUIr DPVkeNCRbZ7oqcmff9vn aoszZnLbMXJtXWo6OOp8 UJHaiDekRbUyIKM4VxW4 BBS1qZXnyD1ykBvu fnuufA1oTwd+GHL0gHJa dXQYDP4kKwlpuYV+PHRk VHN8pWjpAFrlJJGveK3x GIVuX7i6TuVxVqE0 LFdcM3HculU3QXAslHDt SFArqGPPvZ4bstupm7oa muagSiFsLNDeCKm1IUc1 LWFsaWduOiBsZWZ0 DyL3BPM5wBCmyN7pyYsc gkjvhE9fYki+QmlydGgg QFP3QRm3T2IwHkc4NSRm uCxmRT2iqKOtIZss Kh9pvUzfsPjtHH0dDBEe eobzo425KfKrr1cfKGGs wWKqZDmuGSS0D37qt4K2 DJTgGDHpAOC6xDX8 uH0itRmgnwakbUFubAcv fiDroYhqBNksBRckU184 IKPncLygXuZyPGe5G7Ll Kvw2BZDjdJdlRP3u lHQsEZlwMv6wtJsoyEtt VO0qYFZjirckc104OfTt s0szDDIrkTUfECqxIYT9 N54wt3M5CJMjCMKr FNB6vXC9tW2pvRyqhtav bGVmdDsgdmVydGljYWwt VAnsF784QCAooSvoHkHs xVp4I2IsVdu7SKYj dEagDN5stFXmCOeyBr2i dDgriYtjBI1oFLTwjsup m894RtMzd6uiQKNrxCHp WXcxLPU5N20qj4V4 NDTrOXHqMQN2nTO8nG0j bGlnbjogbGVmdDsgdmVy fBqkVIreBBdiH819HGEc cDsnPlBhdGllbnQg BDblBLz5F6FxOmkpqRK+ OI99WZCwGN15mJWwkZDo l8nmkXh2QvZeSUWbQQD0 dOexXMiif7WkLUCd P56qsGXzy7S1FKDpmItf xMWpYzUycGR0uQ8aHIoz qqgsq6seujlgSdtpm3mn di49gZ54G97gKCzk ZHRoPSIzMCUiIHZhbGln zy9ylP1pFc9+PGNvbCB3 gSD0lH8jANGiRjZ7AWbb M338FqOoeJQmRggv f4zyp9oetOf4WgR7RXKg efIedDyxHAJ9v1GgUs97 Q68oZZznKWBzHSLwFDXg KKWvyYyuma1mkI1d Ii8+PJTqjRL0sTI9mS2k CnVcBpH2AVcrT831GyIm iYNxRmpjY56gI3MhlCP+ HAShZrw7PAXcpGvo OZ4pgOWyEIsgFp5vFQP7 CyAtSbBxMOfnU8FkKOUy rfzjcuifxED7BSKzOJTj uX26Uz1xjPmfAVVu cXHJtP4gphpry1vtaigc PvQeYSYjULj2BQy4DNNf yIwwSjXjAYB4CsU4AVC7 yOMsaH9uuZrvzerw mV3nR9WpGDZdczecBv73 pP6cOoHaCyI7JVurLwv+ JKIMQVDMW8XiPXoHJmty DBoGNI86W2RtGum2 EPIomDtyAW8ruIMxDDga Ih2meVwhwDncBF9gOOEf swvzJLHviZ3pPUYxsAHc nJqeOX0bRHMvybzn f063PkUnKWC8YIGcfLEx U6HjeH0qMbJpDQOoSJUh D6SbwLYpPFjeC712AWex HcW1SFYllqOkU4Bw MKIriGzmYeR8g7N9Ka6f UN9fGw3bZWN5EG39SW17 fIUul8S4eHU9W0IdDPMk lmuwlpwnfXJ6IJYs RSCxsO35uIYmIGdpQm7j y5O7b965ZKAoIUCguK34 Zw6wwThuPVGnkPRIzX2p olfpr9oqtyyrUjYe BCNlFKq9XHz0FZLxbKpe OsViPTY4AfY5INX3eXMp iN0nfClpqwwwyK4hAvt+ QQbjCGFtsxY7S6Ae Txe1GXDnsFghCX2nmIEb NMimZm7efXjpbYdcKE5s JFOozcqsIPFpnN1zYPZu eCCnsVwcLR9vYBAx kbvkf276SvVgNNB7EZOz pXGdL7IocK0aYrClGSSp CRJgE9EtxKOxJGdaQ410 CQjkKtN7FPRgegGw H4DiPCTenDejPbQ2r1F7 Vg5QPCuFSA88QS55wWOg x5W2aVY4X9TvUYAhyzuy qnaarCA8XRZfLXKv vM82xMJyJTwqTq7zd0Y6 n940AUTcBZYxiK05Jw5c zSfgDCMhrYLSkF3npzkj p5hwoasrZeEaLQYw VKo4TUi2RJAqkHfgSpKc BUX6OuV7GQQ1tBSogG6v nXclbqlpsX9tVja+T1A8 M1BpXduvjXY+PC90 TMWzCG32zRClqUThs7rw hYc8MlXdEZEbGTH9qIoq TEjho4ZfIQDeP17vyTFs p3G3RJIxhScqfKAu ItWsqVQ4jS8fJXuirkaz t7hgashhOmdua4hyux27 oG05U17xQSexXGWzYUVd NZOeVWLhaDvacd2i lI8rEa6+TSVicQX9xHK8 sU8oGhOhYiK2DDhfL886 MkPrrQCvPiswc7xdp9yv uOr8QaZwLDIgjnBr gAszOEY5t2VnZl31Y63y IHdpZHRoPSIyMCUiIHZh lVnjle4thJ4rWm7+PC9j i2flcb06iB20mGK+ WQPdFGT0pUwjEYtcWDEa fB4kWZafViK9WRTfLiWg oY63tSLbRJhzCr6dsIxu yVfhFK1nQXImrdme e612YxZxj5wpOIXdfMMr PRilQIJ0T96wn4N3RQYg IGPwVCM5oJK9qS8wwIum bjogbGVmdDsgdmVy tZpzDOdsHXsbO580RUYp sTlqVvWdsHZdD7irhyWJ AB0vVtdilZI+PHRkIHN0 yGmkYCukEDRotT4s OHNeE4g9NoPgYaO2ZMnf O5QthhE7RRWkwSHyGWRs wQITbJ6bunorg2xagits TaAzXEDoVZq8NGb5 BZNcrIjrNdZkRKV7QeU7 PTD4iFJwwS8uaXtytngp tH7rYig+RklOOjwvdGQ+ BGGiXOU9aYgbMCkb DNXbbN7mTYXuE3y1LdTz PtH1RQdtA9GellM9BEAi eSUbGDBzaWXAvO5sfjsd t6eolcxqGiSwOECj XRk6KLu9YVEedUkaIvTn LOV9VhI0JFK4fVBkqW5v aEkkkwbxiW0wJbw+TVJO OjwvdGQ+PHRkIHN0 eKhkCGvnWVTqiM3fEOJe W2q5GvNyHgC4QLesU7Bs paS3DZOnvZRhNOUjoLSK cR3zqmakh1pyfjzd LmFbSKIfGPh1KVy5FOHh rCvkVdXaSRX1YoZ3LLK1 wHMgnS4hjDzzcgwzoT7d Oyc+GMV5DIS2MW98 ST73O1VuOyfvuVQnrXU+ PHRhYmxlIHdpZHRoPScx UEHsNsSgqZudPH1mCr8n ZGVyLWNvbGxhcHNl OiB (more content not included)... [facility] CT Abdomen/Pelvis w/o Contra ston 06-01-2024 CT [...] Analia Bourne MD 06/01/24 4:54 pm Technologist: KARSTEN [facility] Provider Orderson 05-25-2024 Provider Orders [id number] #[email or web address] [facility] Coding Summaryon 04-06-2024 Coding Summary HTMLBase 64 WoadgmhsDFy0wRa+PGhl YWQ+GE2SZGGuM46xsYDz fW9sQ4HOBXeZIujbPOKN BIvGXbIukyMfNK8bsHEa ZXJu IC8+EI1zOEVsIvhaiCYu i6I8uTB8Q55oji0tGWvy kRH6IHXoOnRblknxp6tl jFs7CLuyFeujXkYs KMRzhE70MRS9kX38Jw90 hCHqbYBnl4vjhLz0QuAx HIUhUBH6zUgqHWlrd8Gt MEWsE04fxIBie1U4 IGNvbGxhcHNlOyBlbXB0 kW4nZTmbvtqqr6dqhgpj Hah0sr34zCDtu9N7pEF8 A4FtnxD4ZFOfjOZd ZefltRGNrS6kxoshk4fl bgqrGvPsKYLmQTb0CTw3 MUNjhTczAbNsWZ43CWJ3 DPMkjhVxN7NcQLZt tFlsXuU8h5V1Xq5NK5GQ SugvD2YTPWJYAQyctVQ+ UI15gn67H9SkScecRki8 EYOkMWO6sDC4jB6x BGFgRVsmi6W3nDH6K6Im pjWkqk1fg9ttLWFgGFtc V80crBCmv0I7NVEmzWU7 GPQarMgpMnLgyI99 Oyc+EASvnHzef2LbEykj n3lwc8ugdDe5RvzyRUKt csCwhOkwNAV1a6BeOa2d DWFtxLL7wAA2eZ1q GdVsDyL3YOpiJ923MzXv gMLyGazfN06zN3WaoPO+ UHOsBoy8KIXpaBcaNO1k J1CbNNVkicayiBIn bTaaWA2eFUEhpngdSKIb oC1kPXQjH1j2WrBsGrE2 HSfuI8SmKWVykqnoPr48 vN7tHnChAeY6VBll L3JahfX2ETEkuVFiYTtv YBZ0D79uu1M8NLFbENYu KJW2iMM6vW3vvIknwqdd bGVmdDsgdmVydGlj LUyhUHniU169JHJkeKsa PkNvZGluZyBEYXRlOiAg MDcvMTgvMjAyNDwvdGQ+ PZPfBIN7bCnfZRDz lXOzYUjtGy2irSpgyDby YA9vBHZllqqoLIIbvT2v QJQbqXYfeMuiRV4tYMNo jjmca868UzXqYTP7 DRPuoYExR7VvoW9cCwKz QAZcPYTpN1UwfUYzCGil L798IVqjKoR7UDRiqrBg S0HzTTEdxIdyXfW4 w2E7Lq4Gu7JrkhomH5Pg qTVjXiGfAqvuOLw0V4Ma PjwvdHI+OS46HKAdSH55 WCi8PEE0tTvwGRql TLNfF0WpmD5xOiZpPFBh ZGRkOyc+PHRhYmxlIHdp ZHRoPScxMDAlJyBzdHls CW3bEu2oZMZrUQJw uTszmPFuPeMuk2niSKWi FVwzJS8qqGzaF5AtoYP5 HJAhi5h5Jh45Z03xF7Jk dXA+QUMfwIZ2nZX6 hW6cVjNeAsP7NAnfK673 HgNzePDzIqxjn3pgu1ar eTi6TxA0EYRitsXctPpp VQB3f1MuVe52O43m IHdpZHRoPSIxNSUiIHZh uBkiml8ayG9wBg1+PGNv wIY9mAO5hJ6lHiCgCkB7 RLtsO156DyCtzWYo Hobal1dnt1kgkCx0UwNx IEKghzUmpBtxJHN9e8Sn Ls43B9OepWtpd3QkOjb0 mb74cHLmi7H5yWP4 A6WcDLIuxkjdrLJtqEpf FX3nEZRqtxhvRESdlS6m AIDaJ3c7QxGcDaL4CErz B2WsnyT4CUAuqBAt IHVxgFPHpM5kbyfje8ct pmldFySnCMSgMXb5SNc6 IDOceUuyYaDyNHC4TpX9 RJL6gRVdaX1cfNfb dwmnjO8mWmu+LUH4lPJx xUWMDH2cSusdrGE+PHRk TJZ7hIleFNftPVMlvM4s RTXpX9k3SbXuKqC1 MYvjX4CxwtL9JINzqMRd LDIyzJXWcH0cansxp4hx ulrwWbWeDPWpLAq8PNz3 LWFsaWduOiBsZWZ0 DaD8RPL4nCOkxW2fsBbd niiivQ5yOtg+QmlydGgg ILS7KTn7U5QdMgp1FZXi yZelYR2gyDSuVKvn Pb7vlIohmKqgMG6zKBVf hjjyi951OjRzr9hjLFOa yPYpXJbsEEP8M13ju2A2 TYTuWTCzRNG2aYI0 pY5urKdsxcjzwYTffUbd akQslNggDLsrROfvB397 DLDwgSlfSoKmHLv6R5Gb Srf4ZKDatVohPW7z xQEzRMfvPf7yfTvmgUrw CH0fZCWkqpylq723TsXx l9ooHXGssJWsADshRBT1 N82ma8J9JEEoXELi IKD2iGP8jJ3icAdhrkas bGVmdDsgdmVydGljYWwt UUtoG591GWTwnUuiAhYx dTv2Q5IwDps7DZWn fKccYB7kqKZiZYeiMu5p mHwlmZryFY3jPJUnevgt z204ToOlp5wuQULajQCd OBjoCPW8V71nv2N0 YUFzSGOrCXY8pJO5tO0v bGlnbjogbGVmdDsgdmVy jPmrJRvhVTuhP512PDOl cDsnPlBhdGllbnQg WEbeMZg8G1BxCcdjoWO+ XR76BPKyKK56iWPlwHUq h0pzmZe5DwCcGXOjKQW5 vPdbAMiwx7PhLRBc F08kpGGro5U9NAEotRnq lSYzOgLroBJ4lV3wXZzi bumbq5nmsdknHzmmq3tw yu97kO10D21uPNeg ZHRoPSIzMCUiIHZhbGln dj3dpZ1bMz7+PGNvbCB3 kVK1bL9aQAKdVvX6NWvi D435OlVwrBKfRiik u3wro4fkeVj9CxY5WIIp juBmiKonEAQ9w4ZwOv82 B62tPTmeMBWpOEHjLFAn TSFpaMgefx5ziG8i Ii8+FLAqoAW6sBG4mF8t PdXtQcG7USmbV800CcId mEGcVajxD90hM1IrvVU+ OAKuKia5KAWpwYxu IN3ssXThBUdsPb1fZOO1 LmDdAtJvOHbqK4HkOOWu tqufslonzPN3PAXuVDVw aO13Vx8vlSepBVIl qMGEdX0abtygs8wdnfdv FaSrRSMjDNv8RWd0ARHn nDadPtMeEYP7FsQ7DCV4 cZShdN1mcNuyfgpx hC9cR1VnXBCgjxjhIl45 lK6wSiVbDbL6UQupNaz+ WOOWZBVXD4IxPGxAKluw HZcIEG72O8ScOzz0 BRFenQbvUE2jtEYbHEov Iv0efWhagKsuOQ0eCUPq elhgMKNpeR4sBYOrqGMu cOidQH2jLDRjnimj z531SwRoYNH9YHQocJYv C3UeuG8rQkZpINJdASYg X5GfaTGcIFycJ251NWzr CzV8KNRmrtZjJ7Mu WIGqmEuxTvP3g5W0Se5t QM3nHw6jXOR9TM55YP02 tGBft9R9eLE9J0HhOQNh iqdsfaasxYX2SEGe VKLsrV21sOVyYBjsAe5o s5O5r386TFXnVMYiqU80 Sl2tvMloWBMfzTCRnJ9y yjmdh7lriqihRyRn BODeCUb3RRw1RARuxJbr AkFzIEG0FoH8SMO1zGHw gE7omOfygvvohI7qNie+ NNSvXQSksdG7Y6Dx Uah4FEXxvNnyHB5vdFDl QHwnVq8enOnnhPxmZS8m YGZwxqnxWNTjaB0hJXPk eDDorPxpUO0yGPSg oaqmr805AySaMMU8KUGe vEIiZ0TwwI5fMsHgANUg WCBiQ1BasWCxGJbhP631 BLvdUgQ5KESdpzDq N1IoRNUtyZroSfM7e5C1 Zv1RWNeGIX00TE86aSVb z3W4wEC2H6SyRTMytgdk boqoeFF9BRXiHRPs oD80gAKuIQfwGd1sh5D0 n034RCAhEBRqwO15Ku9l fUxzNKAwcDSWzA8jrtfd v1iheumxFoVbTEDx IOi6JFc4XVIyoShiSsGa CHX7HlW0WLI7iJRufC9d qYjwiiddzK3gGgs+T1A8 B5BqMtybvYU+PC90 ISCtFI65wWPlnYJcx7al rBf7ZrVgSAKyEJP7oZvb VOyfs4KpSAQvY76mdMBp t4A5ZSLxxNyibMNx DqPnrXU4yT4cZIlchipu u6moykxlZflms4lzhe79 fR50W90bZHozEMPlCYZh VZFiANElqOqjyy8s qJ0nFv3+PABmkEJ3aGJ1 vD5lWwReIsI5ZGrpI964 CvVodJEcNqqgt8sza7ko tLh4HgYdGXWivrVt nFzgLZW0w6TdWa90S88f IHdpZHRoPSIyMCUiIHZh bJulmf1ltM4zAe9+PC9j o9gbgf18vE15lOW+ GVDnCMK6iHbeMPynUOYi iX9iGNydMnO7RHLuQgQp gT95hKUtFNedMi4zjLjf tKivRX6yCJAplbka u567PzPpg3dhGALhaYAh PFmlQVP0Y21ry9S0DEUb BTEjVEG7kUH7hE2ckHxw bjogbGVmdDsgdmVy pAsvLBxtRWoqG941XKQj eNutSdGypRUuE1mrqpXD JD2gRmttrMV+PHRkIHN0 gKwnLYnqLPIufN1p OKSpC5m6FwSvKsD4KAjl I6SvlbP0KKLkvDGeGUBk oBRLoL0iwxhko9fpyjwi UzXyTHPoCDm5RFl2 ZXGrkBcsObDdQXJ0BcQ3 KNW8hWLhrN2qdPyrdzxq hW5oHyh+RklOOjwvdGQ+ FKXbOFO3uMedNGpl TACutL2bWCCdX1u4ZrVa XfJ1NYqqX3GjgwA4ACXm xAPvKCLxeVSScK0whvkg y9uomwxiPsCyJKDd OCl2SYc3EAAftIqcSxJq PJX6JaS9NBY4jJHneL8u tPsfqixqcB3pMdk+TVJO OjwvdGQ+PHRkIHN0 pSriFQztVJYazD8eZAWx O7x5AfSmZlP4MNhhP4Ep vhU5NXTdpQTjLMUrxFIM sV1ikubie3dveytg MgXcFJXpRQu8PKe8OGEo jTvpZvUlDAP2YqO6ZCS7 mLHhgT5roUyzmncdzW7y Oyc+NKD4GTS4SI70 EF74M7GwJbbjgECgyDH+ PHRhYmxlIHdpZHRoPScx JSGpXdDfrKjeTE2xNg3k ZGVyLWNvbGxhcHNl OiB (more content not included)... [facility] Coding Summaryon 03-29-2024 Coding Summary HTMLBase 64 NgbqyjppWTg1nUc+PGhl YWQ+ZX0ULZMiU32ryRVr uL4dD5ORNTuTJysnDWCJ VXcMAfFobsYjWH9mnWSq ZXJu IC8+UW3bJQYnDszwrJGk q2F7mIF6X68xxm2yPMka dWY1ZAHoMqZukxgoy9pt dWo6ESpeDkaeZlCk YGAyaF39GHY3hB63Ah19 vOPusTCaa0sxiBx0ThLl OVByCQA7nRppQJodd5Bs UJYbY55ouWMnq1T7 IGNvbGxhcHNlOyBlbXB0 nO8gGVzlznaxj4udpeuj Iiv1ag36vCUmj5T7vIC2 L6HafgL2JWQokANc KwiuqTZAhU3ipodle7sb egwgGpIbWNOlANf8FEa9 QTLavXagFgGoAR30WEW2 NWDzbpAjR5HpVKTl kUehHwM8f3U1Nn9FF5HB ZmngE9CWVZKNXVbgeZN+ KX86li84G3AmIzooGeq9 XTLtYCR6qDI0uV9k COFsLAgtl5E5uJO9F1Ox cjNvof7pm9raLIVbLUrc Z09ubTEok3I2SBRrzZW9 GQMbyTniWkAlmG83 Oyc+IBSceJitq8IuEjbh n8sjv2hflGv6QesfWFUq nkSkaOiyGLI3o3IyFl8u LMXdgOK4iUY7bY4r MmVxIxD7GSopP198IpHx aUBqGjchI94tJ9FwjQT+ FIIxYhl7VGWbiGcuPJ2u D8DfEGXrnwsnxSAx qAykOS2lBSDlepedAIUm dO8fRFXyT3w3LbFgSsS2 DHmxZ9HuLVRociuqIq96 yO8vGtOxLuO0KAyn U6PeamL8IQCfoCUnFWct QOM6C93jl8C0RHDiJFYr MEG5fUN1bY9inIakxkuc bGVmdDsgdmVydGlj KWggQHgcE424TUHfsHgh PkNvZGluZyBEYXRlOiAg MDcvMTAvMjAyNDwvdGQ+ LEFtLGV4lLrxLKJm lNAgFYycPy0foVyerTap NE1eUGUpyuhpKLMuaF4i VJYqkNQefImfVT2mYLTf qnhoc754TjGyHOF5 GIQbxYXrO7TlpJ2pZnJp RRBhKFUgY1HgtOIgHKdy O464UIxkAzE0FBMtehMg Y8GdUJZghHfiWwK8 h0M7Ns8Rr4ZvcmodS3Ff uZUjVlYhPdkjIQx3C3Wm PjwvdHI+FK39OAVoVN11 ZRp0SCW6nBduEVbq NTVjA8LaoO9yUaGeYOTk ZGRkOyc+PHRhYmxlIHdp ZHRoPScxMDAlJyBzdHls VE3eWq0qWXFnRDTt iMldtFWiAxIgg2ugJHPy JMunAN6gdIkzR3DegNY6 YXSuy3f9Sc59K12oS7Sa dXA+WCYbiRB6fKY5 iK1aXpAgHeF9ZXpaW328 BiRdwWXrTobhn9pge0de zQo8TmV8WFQoqsAwlOou HPE9t9HdXs88W19n IHdpZHRoPSIxNSUiIHZh xIukhi8sbG6hGo0+PGNv rHV6zRW5eH9oClGnApZ3 SRjyD932ZjEndRDc Pqeru3uls7dyuSc2FgFr UBCpjuVxrMcdCUJ3l4Dc Fe01D9NuxBjti8TnWxx3 qv14cLGhy1W6hCL3 W1AvUDCtprwpnTBfdYeo HX7mZQVjkvbbJDYyhB9z ZAKeW0j0NgBvBeR7FFmq A8CeufS0NNLqsSRe SUBymHJQkI4touqiv5ht cwdbVkGtKBYrVUo1AAw0 RPCflQahVjKtESE1WmM0 RGA6pRRdkN6rhWfr advxgS3nRff+MRK8aOJn cBLSBI6hThlejMV+PHRk URD7gBckPHyvFDPjoD3i AKKdX8e6BbOpEpG8 IWooS8IvzoO1VLEulMEw MLLhsRCLrI1pwwlcc1qt hnjnTjTjNHBcEJf8SHa7 LWFsaWduOiBsZWZ0 WzC3ZLA2eQScnC2xnEjj khtzcF3zNir+QmlydGgg HUY0YJl5Z1TwYqu4CMUj fRdwDQ8nvVZvTQgw Nu8vrOrxxYtyCF4fPFMc rxsaz706WwQfs8qjHVUt hARkNZceCGS1B46hu5O2 IBSeCZCkZKT5yIB3 sC2ssFvxnrezuAUstFxn ffUgnCqwYBieOOqaR252 QKDsjGnbBhDfKVk9C0Gx Ugn7DJDanHsmLF8j xPRaTMbyQy8urZyjeVjn BO5gFVWljdaam457UcBw f2lqBKRwhQWtLLyjAIY9 J97dt9K6YUJpZVDo UJI8cOY3iO3ipFfpvxiy bGVmdDsgdmVydGljYWwt NWxsB059AJZudZmgCjJw vPw2P5EsPzg0GTXr nVvfCI9jqOYaAXnmLu3g oHbemHvkBU5iJTGnmtmp p694IzCgl1krXHOrkVAn GAzkEWU5T62of5A4 HGIxYFPcOWC8rUT1kP2k bGlnbjogbGVmdDsgdmVy rEihLHniHTqbH843RPRv cDsnPlBhdGllbnQg OWsbDMj1Q0RmAwazuSD+ SZ46UVWlMN23oPRjdMWy a2bokYo9YuPgTEEeEIJ3 iRhjJWvaf4EvRTKy P65anNSyr0T4BGLbfSxp pSPpJfJpwWA9sH6mUZks pvdhe6nchrqzIydsl5fs oi88oQ10T63lGBgo ZHRoPSIzMCUiIHZhbGln il2zyS5pLt3+PGNvbCB3 hTP2bV8tXRJwLlF9KBld I888ZvUarEQoRyvn n1akb0ebaEy2OzZ7UCTl gwQhjJzgEYZ5l7LgVe56 W25aPPvmTXNeUNGkPGYa GJZxwLgruf5acS7d Ii8+ONCjmKF2uNX4yJ7f QoCpIrD7RDkqE897XnHq aLEjTrjaG76fO5DbzNT+ ZLWzCjp5ITHvqNfh EE6riXMpUHbwTe2zIBF4 HvUsHoWoAHmkQ2OdZTKe gotfadyuhSY1PFDdXQFr gZ35Ix5knQlsRKWr vKOApL3vkrzar3mccyet XyVaZQUhQKw9QLr9FTKg eWdlYoDkIXU6CiK7PKH8 aINerT6hoMrpqauj xJ1aO7TuBCWgifctTp17 lK9mBzLwPrC6BSnfCly+ RNZOXGLJM3ToQTjMGvdu GUqRUC19A8VqSvz3 AWCqaDbaGN3yzGTrXFch Vo7qvEumaXbrFT7kZXBp jzcmKKFhiW9pKYQiqHGx dUptSG7jDLLqmmic c330BgOlKRI5LIPccVYy K8SntT2kKkRyFQDtPRMp S4WgaCBwROpfU585BWxv YeB8PNXndsHxH1St BTNclXcaTjD4u1A3Te6h AR8zOx9zMNP3QF10KE93 fMDja2N1pIS2V7RpVRQc zhyjpudteZL1FAJu TPGfeP53zVLzXJsdEm5o b3U8e622DKOlCZCdlM96 Yr2joJzsMRXjmMSAwJ9j xwcph0uaijizCdSx ILCnDQf3DVk5OEKqiPzw JkKsJRM6CjD8FAC5eJYd bP3icHtqejznfY6rShk+ GTVgUVUpxjL9V2Hr Voo5FCNbxHzjSY0zxETk HIssJr3wrYewcKmwIP4h IAShifrkQCDlcR9dVBEx zTKhuLjsQI2hERPv lnowb052IzGmOMN8OZPa aZFcT3JvpG4sDsElLNFo VBCxO7OoaHDmBYetA228 AIowYjS2EJQntvUd O4HvTGVtzHopIqR9r3W3 Zr7AGWpYNM25RZ02yXDm h1P3pNG3Y9ShJMKzebyo igjfvKU6CTZnSFBb yY92nBWdHKavGn3nd4K1 s976NQXdREJanG87Ii2p xThiLDQzsFJQnA3qofnm j3wkkkmtHdEbZAWo YOj5CFv2PVSapFclPnEv KLL0TeN6GCQ3zXUmhC3h sHcbxwasuC5rZos+RW1l ptivwmH0WY25UM04 U0BqEvtpwGIhhRJ+PHRh YmxlIHdpZHRoPScxMDAl LkAauHzgKD4qUu1lZMJn LWNvbGxhcHNlOiBj z2lxRWHvQOtjFB1gpGdo C7EdmQD4CDHpy7i7Af36 L20qL9YpbUX+PGNvbCB3 uTJ8nC1rOjUzMgN3 UDqaG860MqVysCPlHhhp h0kvc9zhvIb9VdLfKAQi taIopPcuKSB0o6PfFi91 H94lDJbcEYOcPPCq ZKYuCLWhmIwrgr2ibT3g Ii8+WSOinFM3bYV5sE3z ShHrTzS7YPuhM495VoDp uYAlIyjjO16fW9Ms dXA+PLBjSrr3KCMohIjq RI6riNLoZZnfVq7bKOX7 TrMbMqDuYCigA5RpJIVb lhmgtevblTU1YJEb QKClbJ19Er8dtNruGh7b VPThRLA3ESKmjRGzC9By xK9pAqUdEPRlEINeU0Cm tGRrTMdtG370LJbw WrF9MTWtfbIjG7WwGGZx cYpaDnL9q8Z0Bt3WiQan gPMdRD4xOpMyWGe8Q3Pi Riw3UUFplEfrPJ9e rJMvSBmuWw5iqMezwYtl LS9kTVYrixmno209GlLf r1epKYQnhQIjXEcuCSZ9 Q95fb7G2GKUkVZCz ULP2nAL2dJ8ocMewjsex bGVmdDsgdmVydGljYWwt XXerO029ARCewDemOiEY Uwl1H6MuHvf9WIEz lSdcNK3ltCNiCKckOc6b gRjvnEprZE7dOIIxktok f281VfOzr6ojSTIjpQJf WIwsUHE8T86xj3G8 DWEvFVAwZNB6cCX7jN1d bGlnbjogbGVmdDsgdmVy gRvxIUwvBEkbU487PORz aNtpEf7LUps8Q6Hp Ycs3TOFeyNtcTG4axPHh ZPgzWw9pgMjwmZzvFE8x RUZhszone368MvCna0tk IDEwcHQgVGltZXM7 X64dc2E0DBWwUNSsIEQ9 iCB7jD6qaSodrqvetARi dDsgdmVydGljYWwtYWxp A814IXFyxHzoQzFe eWVyOjwvdGQ+PQ73uc14 R2AvGsmtZgx0YTGeZOY0 wAX0yS4fKGZePBkbi5N1 yTK2O1YwcdVave1e b2x (more content not included)... [facility] US Kidney/Bladder Completeon 03-21-2024 US Kidney/Bladder Complete [...] Nilay Mchugh MD 03/25/24 9:19 am Technologist: SAHY BRO [facility] Provider Orderson 03-20-2024 Provider Orders [id number] #[id number] [facility] .Auto Diff 103-19-2024 Auto Rice % 13 % High 10-01 [facility] Comment on above: Performed By: #### 1 [id number], [id number], 6468451, [id number], [id number] ####[facility] (DEFAULT)[address] [place] [address] Baso Abs# 0.1 x10 Normal 0.0-0.2 [facility] Comment on above: Performed By: #### 1 [id number], [id number], 4759713, [id number], [id number] ####[facility] (DEFAULT)[address] [place] [address] 34777 Basophils/100 WBC (Bld) 1.4 % Normal 0.2-2.0 [facility] Comment on above: Performed By: #### 1 [id number], [id number], 7286810, 2970942760, 94534829 ####[facility] (DEFAULT)[address] [place] [address] 63078 Eos Abs# 0.1 x10 Normal 0.0-0.4 [facility] Comment on above: Performed By: #### 1 [id number], [id number], 8292122, 2702965444, [id number] ####[facility] (DEFAULT)[address] [place] [address] 06845 Eosinophils/100 WBC (Bld) 1.8 % Normal 0.9-4.0 [facility] Comment on above: Performed By: #### 1 [id number], 3580975651, 7393443, 3909534291, 61974869 ####[facility] (DEFAULT)[address] [place] [address] 66836 Lymph Abs# 1.0 x10 Low 1.3-2.9 [facility] Comment on above: Performed By: #### 1 [id number], [id number], 9130416, 6527659457, [id number] ####[facility] (DEFAULT)[address] [place] [address] 45057 Lymphocytes/100 WBC (Bld) 19 % Normal 14-48 [facility] Comment on above: Performed By: #### 1 [id number], [id number], 7795112, 8073762339, 08559833 ####[facility] (DEFAULT)[address] [place] [address] 77653 Rice Abs# 0.6 x10 Normal 0.0-0.8 [facility] Comment on above: Performed By: #### 1 [id number], 0737948193, 1900936, 8056440617, 90416535 ####[facility] (DEFAULT)[address] [place] [address] 99930 Neut Abs# 3.3 x10 Normal 1.5-9.2 [facility] Comment on above: Performed By: #### 1 [id number], 9273757290, 3457329, 2868446207, [id number] ####[facility] (DEFAULT)[address] [place] [address] Neutrophils/100 WBC (Bld) 65 % Normal 44-88 [facility] Comment on above: Performed By: #### 1 [id number], [id number], 9736064, 9433408719, 95079632 ####[facility] (DEFAULT)[address] [place] [address] 67521 BMP Standardon 03-19-2024 eGFR Non AA 58 mL/min/1.73m2 Invalid Interpretation Code [facility] Comment on above: Performed By: #### 1 [id number], [id number], 7409395, 6908256148, 34820488 ####[facility] (DEFAULT)[address] [place] [address] eGFR AA >60 Invalid Interpretation Code [facility] Comment on above: Performed By: #### 1 [id number], [id number], 7263571, 1991576759, 74542584 ####[facility] (DEFAULT)[address] [place] [address] 96234 Anion gap [Moles/Vol] 12.6 mmol/L Normal 5.0-19.0 [facility] Comment on above: Performed By: #### 1 [id number], 2456634091, 0365388, 0574070044, 00743754 ####[facility] (DEFAULT)[address] [place] [address] 10735 Calcium [Mass/Vol] 9.3 mg/dL Normal 8.9-10.3 [facility] Comment on above: Performed By: #### 1 [id number], 4107874835, 3360472, 8012443094, 34622115 ####[facility] (DEFAULT)[address] [place] [address] 11425 Chloride [Moles/Vol] 105 mmol/L Normal 101-111 [facility] Comment on above: Performed By: #### 1 [id number], 7969809738, 2598523, 7710676178, 41022925 ####[facility] (DEFAULT)[address] [place] [address] 39758 CO2 [Moles/Vol] 26 mmol/L Normal 21-32 [facility] Comment on above: Performed By: #### 1 [id number], 0903215589, 8668288, 0904801527, 26261141 ####[facility] (DEFAULT)[address] [place] [address] 81978 Creatinine [Mass/Vol] 1.28 mg/dL Normal 0.90-1.30 [facility] Comment on above: Performed By: #### 1 [id number], 4311634703, 5847655, 9809212228, 51618405 ####[facility] (DEFAULT)[address] [place] [address] 06307 Glucose [Mass/Vol] 104.0 mg/dL Normal 74.0-118.0 [facility] Comment on above: Performed By: #### 1 [id number], 7560575129, 9094234, 9942431665, 91304849 ####[facility] (DEFAULT)[address] [place] [address] 51862 Osmolality 280 mOsm/L Invalid Interpretation Code [facility] Comment on above: Performed By: #### 1 [id number], 1140139714, 3252232, 8490392169, 15786714 ####[facility] (DEFAULT)[address] [place] [address] 58988 Potassium [Moles/Vol] 3.6 mmol/L Normal 3.6-5.1 [facility] Comment on above: Performed By: #### 1 [id number], 8078288045, 7619000, 1616852641, 55681671 ####[facility] (DEFAULT)[address] [place] [address] 62171 Sodium [Moles/Vol] 140.0 mmol/L Normal 136.0-144.0 [facility] Comment on above: Performed By: #### 1 [id number], 2042856486, 4157132, 4769657511, 19945238 ####[facility] (DEFAULT)[address] [place] [address] Urea nitrogen [Mass/Vol] 15 mg/dL Normal 8-26 [facility] Comment on above: Performed By: #### 1 [id number], 9497382496, 3206335, 4155301394, 55086162 ####[facility] (DEFAULT)[address] [place] [address] Urea nitrogen/Creatinine [Mass ratio] 11.7 mg/mg Normal 4.6-16.2 [facility] Comment on above: Performed By: #### 1 [id number], 3738340496, 0284860, 8648061576, 67872135 ####[facility] (DEFAULT)[address] [place] [address] CBC w/ Auto Diffon 4 Erythrocyte distribution width (RBC) [Ratio] 20.1 % High 11.5-15.0 [facility] Comment on above: Performed By: #### 1 [id number], [id number], 3032253, 5173834088, 06939871 ####[facility] (DEFAULT)[address] [place] [address] Hematocrit (Bld) [Volume fraction] 34.7 % Low 34.8-51.9 [facility] Comment on above: Performed By: #### 1 [id number], 2180293519, 0933263, 5213896288, 16562433 ####[facility] (DEFAULT)[address] [place] [address] Hemoglobin (Bld) [Mass/Vol] 11.2 g/dL Low 11.8-17.7 [facility] Comment on above: Performed By: #### 1 [id number], 5072689637, 9706075, 1894968355, 09720815 ####[facility] (DEFAULT)[address] [place] [address] Man Diff? Auto Invalid Interpretation Code [facility] Comment on above: Performed By: #### 1 [id number], 8291484595, 7799083, 3143456568, 20569523 ####[facility] (DEFAULT)[address] [place] [address] MCH (RBC) [Entitic mass] 30 pg Normal 24-34 [facility] Comment on above: Performed By: #### 1 [id number], 8509108237, 0197019, 6235118807, 82242722 ####[facility] (DEFAULT)[address] [place] [address] MCHC (RBC) [Mass/Vol] 32 g/dL Normal 26-37 [facility] Comment on above: Performed By: #### 1 [id number], 1718447112, 5266935, 0057195595, 06884328 ####[facility] (DEFAULT)[address] [place] [address] MCV (RBC) [Entitic vol] 93 fL Normal 81-100 [facility] Comment on above: Performed By: #### 1 [id number], 6083266025, 7619210, 6954559287, 71590128 ####[facility] (DEFAULT)[address] [place] [address] Platelet 387 x10 Normal 138-427 [facility] Comment on above: Performed By: #### 1 [id number], 4717119472, 8149650, 4603656290, 31061700 ####[facility] (DEFAULT)[address] [place] [address] Platelet mean volume (Bld) [Entitic vol] 8.2 fL Normal 6.3-10.2 [facility] Comment on above: Performed By: #### 1 [id number], 8923792502, 5544280, 6158774192, 42897186 ####[facility] (DEFAULT)[address] [place] [address] RBC 3.73 x10 Normal 3.70-5.30 [facility] Comment on above: Performed By: #### 1 [id number], 4313564181, 4493384, 2426594599, 42686905 ####[facility] (DEFAULT)[address] [place] [address] WBC 5.1 x10 Normal 3.5-10.5 [facility] Comment on above: Performed By: #### 1 [id number], 2196952733, 7385628, 4144525806, 23287286 ####[facility] (DEFAULT)[address] [place] [address] CT Abdomen/Pelvis w/o Contra ston 03-19-2024 CT [...] perinephric edema is identified with mild left hydroureteronephrosi s, a 4 mm stone is seen in [...] Dictated DT/TM: 03/19/24 8:31 Signed (Electronic Signature): Chneg Dunbar MD 03/19/24 8:33 pm Technologist: Wero SHELLEY [facility] ED Clinical Summaryon 2023 ED Clinical Summary [facility] Emergency Department [address] [place] [address] ED Clinical Summary PERSON INFORMATION Name: SANJEEV BLACKBURN Age: 58 Years Sex: MALE : 1965 MRN: Acct#: Visit Reason: Flank pain; LEFT FLANK PAIN Arrival: 03/19/2024 19:34:59 Discharge: 03/19/2024 22:14:00 LOS: 000 02:40 Check In: 03/19/2024 19:34:59 Checkout:03/19/2024 22:14:00 Address: [address] [place] [address] PCP: Dev Perla DO PROVIDER INFORMATION Provider Role Assigned Unassigned Daysi Silva PA-C ED PA 03/19/2024 19:37:54 Leonela Aguilar CHUCK BONER Nurse 03/19/2024 19:40:29 VITALS INFORMATION Vital Sign [...] Home PATIENT EDUCATION INFORMATION Instructions: Kidney Stones, [id number] Follow-Up: With: Address: When: Missael Schaefer MD [address] [place] [address] [place] [address] Within 2 to 4 days With: Address: When: Dev Perla DO [address] [place] [address] [place] [address] Within 3 to 5 days DIAGNOSIS: 1:Ureterolithiasis Patient Understands: Yes - Patient/family/careg iver verbalizes understanding of instructions given Comment: [facility] ED Patient Summaryon 024 ED Patient Summary [facility] Emergency Department [address] [place] [address] PATIENT DISCHARGE INSTRUCTIONS Patient Information Name: SANJEEV BLACKBURN Age: 58 Years Date of : 1965 Reason For Visit: Flank pain; LEFT FLANK PAIN Arrival Time: 03/19/2024 19:34:59 Primary Care Physician: Dev Perla DO Attending Physician: Tank Lazcano MD Comment: Visit Diagnosis: Diagnoses This Visit Flank pain (631702680) Ureterolithiasis (N20.1) The Pharmacy at [facility] is open Wednesday through Wednesday from 9A [...] alcohol and/or drug addiction problems; contact the [facility] 12/04 Crisis Hotline -Text 8PYCY os [phone]. If you received any narcotics, sedation, or [...] sign any legal documents With: Address: When: Missael Schaefer MD [address] [place] [address] [place] [address] Within 2 to 4 days With: Address: When: Dev Perla DO [address] [place] [address] [place] [address] Within 3 to 5 days Medication Information: The exam and treatment you received today in the [facility] Emergency Department were for an urgent problem and are not intended as complete care. It is important for you to follow up with a doctor, nurse practitioner, or physician?s optometry assistant for ongoing care. If your symptoms become [...] so we can reach you if necessary. [facility] Emergency Department has provided you with a complete list of medications post discharge. Please inform your speech writer/provider of your visit and for further instruction on these medications. Any specific questions regarding your chronic medications and dosages should be discussed with your primary care physician(s) and/or pharmacist. New Medications [address], [address] [place] [phone], [phone] acetaminophen-hydroc odone (acetaminophen-hydro codone 325 mg-5 mg oral tablet) 1 tab(s) [...] kg Body Ma (more content not included)... [facility] Extra Redon 03-19-2024 Tube Collected Yes Invalid Interpretation Code [facility] Comment on above: Performed By: #### 1 [id number], [id number], [id number], [id number], [id number] ####[facility] (DEFAULT)[address] [place] [address] UA [id number] 03-19-2024 UA Bacteria Trace [facility] Comment on above: Order Comment: Urina lysis Microscopic order added on by [employer] Expert Rules system. Performed By: #### 1 [id number], [id number] ####[facility] (DEFAULT)[address] [place] [address] UA RBC 3-5 [facility] Comment on above: Order Comment: Urina lysis Microscopic order added on by [employer] Expert Rules system. Performed By: #### 1 [id number], [id number] ####[facility] (DEFAULT)[address] [place] [address] UA Squam Epi Rare [facility] Comment on above: Order Comment: Urina lysis Microscopic order added on by [employer] Expert Rules system. Performed By: #### 1 [id number], [id number] ####[facility] (DEFAULT)[address] [place] [address] UA WBC 0-2 [facility] Comment on above: Order Comment: Urina lysis Microscopic order added on by [employer] Rules system. Performed By: #### 1 [id number], [id number] ####[facility] (DEFAULT)[address] [place] [address] UA w Culture if Ind Standard on 03-19-2024 Breakpoint UA Normal [facility] Comment on above: Performed By: #### 1 [id number], [id number] ####[facility] (DEFAULT)[address] [place] [address] Color (U) Yellow Normal [facility] Comment on above: Performed By: #### 1 [id number], [id number] ####[facility] (DEFAULT)[address] [place] [address] Culture? Not Indicated Invalid Interpretation Code [facility] Comment on above: Result Comment: Resu lt created by rule GL_MAGR_ADD_UA_CULT Result created by rule GL_MAGR_ADD_UA_CULT Result created by rule GL_MAGR_ADD_UA_CULT1 Performed By: #### 1 [id number], [id number] ####[facility] (DEFAULT)[address] [place] [address] Glucose (U) [Mass/Vol] Negative [facility] Comment on above: Performed By: #### 1 [id number], [id number] ####[facility] (DEFAULT)[address] [place] [address] Ketones Ql (U) Negative [facility] Comment on above: Performed By: #### 1 [id number], [id number] ####[facility] (DEFAULT)[address] [place] [address]924 Micro? Indicated Invalid Interpretation Code [facility] Comment on above: Result Comment: Resu lt created by rule GL_MAGR_ADD_UA_MICRO Performed By: #### 1 [id number], [id number] ####[facility] (DEFAULT)[address] [place] [address] UA Bilirubin Negative Normal [facility] Comment on above: Performed By: #### 1 [id number], [id number] ####[facility] (DEFAULT)[address] [place] [address] UA Blood SMALL Abnormal NEGATIVE [facility] Comment on above: Performed By: #### 1 [id number], [id number] ####[facility] (DEFAULT)[address] [place] [address] UA Clarity CLEAR Normal CLEAR [facility] Comment on above: Performed By: #### 1 [id number], [id number] ####[facility] (DEFAULT)[address] [place] [address]35 UA Leuk Est Negative Normal NEGATIVE [facility] Comment on above: Performed By: #### 1 [id number], [id number] ####[facility] (DEFAULT)[address] [place] [address] UA Nitrite Negative Normal NEGATIVE [facility] Comment on above: Performed By: #### 1 [id number], [id number] ####[facility] (DEFAULT)[address] [place] [address]75 UA pH 6.0 Normal 5-8 [facility] Comment on above: Performed By: #### 1 [id number], [id number] ####[facility] (DEFAULT)[address] [place] [address] UA Protein Negative Normal NEGATIVE [facility] Comment on above: Performed By: #### 1 [id number], [id number] ####[facility] (DEFAULT)[address] [place] [address] UA Spec Grav 1.025 Normal 1.001-1.035 [facility] Comment on above: Performed By: #### 1 [id number], [id number] ####[facility] (DEFAULT)[address] [place] [address] UA Urobilinogen 0.2 mg/dL Normal 0.2-1.0 [facility] Comment on above: Performed By: #### 1 [id number], [id number] ####[facility] (DEFAULT)[address] [place] [address] Urine Source Clean Catch Normal [facility] Comment on above: Performed By: #### 1 [id number], [id number] ####[facility] (DEFAULT)[address] [place] [address] Surgical Pathology Reporton 08-16-2023 Surgical Pathology Report (NOTE) [id number] [facility] ANATOMIC PATHOLOGY [address] [place] [address]. [place], [place] [address] SURGICAL PATHOLOGY CONSULTATION Patient Name: SANJEEV BLACKBURN MR#: [id number] Specimen #[id number] Procedures/Addenda MOLECULAR PATHOLOGY REPORT Date Ordered: 09/16/2023 Status: Signed Out Date Complete: 09/16/2023 By: Obie Marie M.D. Date Reported: 09/16/2023 INTERPRETATION AT THE REQUEST OF DR. MISSAEL SCHAEFER, BLOCK D1 WAS SENT TO [facility] FOR DECIPHER PROSTATE BIOPSY GENOMIC WHARF ATTENDANT TESTING. THE RESULTS ARE FOLLOWS: GENOMIC RISK IS: LOW RISK OF METASTASIS WITH RT OR RP: 7 YEAR: 0.5% 10 YEAR: 1.1% RISK OF PROSTATE CANCER MORTALITY WITH RT OR RP: 17 YEAR: 1.2% RISK OF ADVERSE PATHOLOGY AT RP: 18.3% PLEASE SEE [facility]' COMPLETE REPORT ([id number]) FOR DETAILS. Case report, all slides and [...] LATERAL M: LEFT APEX MEDIAL Gross Description SANJEEV BLACKBURN, PROSTATE BIOPSIES All specimens are received [...] negative for racemase. Controls are adequate. Normal [facility] Vital Signs Date Time Vital Sign Value Performing Clinician Neri [email or web address] 06-15-2024 14:59-0400 Body height 180.3 cm [employer] Work Phone: [facility] [employer] 06-15-2024 14:59-0400 Body mass index (BMI) [Ratio] 34.45 kg/m2 [employer] Work Phone: [facility] [employer] 06-15-2024 14:59-0400 Body weight 112.04 kg [employer] Work Phone: [facility] [employer] 05-18-2024 14:31-0400 Body height 180.3 cm [email or web address] Phone: [facility] [employer] 05-18-2024 14:31-0400 Body mass index (BMI) [Ratio] 34.17 kg/m2 [employer] Work Phone: [facility] [employer] 05-18-2024 14:31-0400 Body weight 111.13 kg [email or web address] Phone: [facility] Healthcare Encounters Encounter Date Encounter Type Care Provider Facility Start: 08-28-2024 End: 08-28-2024 Postop follow up visit related to original px Dustin Zuniga IRON MOLDER HELPER Work Phone: [facility] Comment on above: S/P carpal tunnel re lease (Primary Dx); Right wrist pain; Left wrist pain Start: 08-28-2024 End: 08-28-2024 ambulatory DUSTIN ZUNIGA Not Available Start: 08-28-2024 End: 08-28-2024 Bamboo flowsheet Dustin Zuniga IRON MOLDER HELPER Work Phone: [facility] Start: 08-28-2024 End: 08-28-2024 Bamboo flowsheet Dustin Zuniga IRON MOLDER HELPER Work Phone: [facility] Start: 08-03-2024 End: 08-03-2024 Postop follow up visit related to original px Dustin T Zuniga IRON MOLDER HELPER Work Phone: [facility] Comment on above: S/P carpal tunnel re lease (Primary Dx) Start: 08-03-2024 End: 08-03-2024 ambulatory DUSTIN ZUNIGA Not Available Start: 08-03-2024 End: 08-03-2024 Bamboo flowsheet Dustin Zuniga IRON MOLDER HELPER Work Phone: [facility] Start: 08-03-2024 End: 08-03-2024 Bamboo flowsheet Dustin Zuniga IRON MOLDER HELPER Work Phone: [facility] Start: 07-31-2024 End: 08-08-2024 Telephone encounter Janine Israel DO Work Phone: [facility] Start: 07-24-2024 End: 07-24-2024 ambulatory [facility] Facility:[facility] Start: 07-21-2024 End: 07-23-2024 Refill Dustin Zuniga IRON MOLDER HELPER Work Phone: [facility] Comment on above: S/P carpal tunnel re lease (Primary Dx) Start: 07-20-2024 End: 07-20-2024 ambulatory DUSTIN ZUNIGA Not Available Start: 07-20-2024 End: 07-20-2024 Postop follow up visit related to original px Dustin Zuniga IRON MOLDER HELPER Work Phone: [facility] Comment on above: Right carpal tunnel syndrome (Primary Dx); Right wrist pain; S/P carpal tunnel release Start: 07-20-2024 End: 07-20-2024 Bamboo flowsrocio Zuniga IRON MOLDER HELPER Work Phone: [facility] Start: 07-20-2024 End: 07-20-2024 Bamboo flowsrocio Zuniga IRON MOLDER HELPER Work Phone: [facility] Start: 07-10-2024 End: 07-10-2024 ambulatory [facility] Facility:[facility] Start: 07-07-2024 End: 07-07-2024 Refill Dustin Zuniga IRON MOLDER HELPER Work Phone: [facility] Comment on above: Post-operative pain (Primary Dx) Start: 06-15-2024 End: 06-15-2024 ambulatory JANINE ISRAEL Not Available Start: 06-15-2024 End: 06-15-2024 Office outpatient visit 25 minutes Janine Israel DO Work Phone: [facility] Comment on above: Carpal tunnel syndro me on left (Primary Dx); Left wrist pain Start: 06-15-2024 End: 06-15-2024 Bamboo flowsheet Janine Israel DO Work Phone: [facility] Start: 06-15-2024 End: 06-15-2024 Bamboo flowsheet Janine Israel DO Work Phone: [facility] Start: 06-01-2024 End: 06-01-2024 ambulatory [facility] Facility:[facility] Start: 05-18-2024 End: 05-18-2024 ambulatory JANINE ISRAEL Not Available Start: 05-18-2024 End: 05-18-2024 Bamboo flowsheet Janine Israel DO Work Phone: [facility] Start: 05-18-2024 End: 05-18-2024 Bamboo flowsheet Janine Israel DO Work Phone: [facility] Start: 05-18-2024 End: 05-18-2024 Office outpatient new 30 minutes Janine Israel DO Work Phone: [facility] Comment on above: Bilateral carpal idalmis lorin syndrome (Primary Dx) Start: 04-26-2024 End: 04-26-2024 ambulatory [facility] Facility:[facility] Start: 03-21-2024 End: 03-21-2024 ambulatory [facility] Facility:[facility] Start: 03-19-2024 End: 03-19-2024 Emergency department patient visit [facility] Facility:[facility] Start: 08-16-2023 End: 08-16-2023 ambulatory [facility] Start: 12-01-2022 ambulatory JAIR CARPENTER Facilit y:H1 Start: 07-16-2022 ambulatory ROS CM Faci lity:H1 Start: 01-28-2022 ambulatory ROS CM Faci lity:H1 Start: 08-28-2017 End: 08-28-2017 Emergency department patient visit DEV [facility] Start: 03-02-2017 End: 03-03-2017 Ambulatory DEFAULT PHYSICIAN Facility:[facility] Procedures Date Procedure Procedure Detail Performing Clinician History of decompres armand of median nerve S/P carpal tunnel release Dustin Zuniga IRON MOLDER HELPER Work Phone: History of decompres armand of median nerve S/P carpal tunnel release Dustin Zuniga IRON MOLDER HELPER Work Phone: History of decompres armand of median nerve S/P carpal tunnel release Dustin Zuniga IRON MOLDER HELPER Work Phone: History of decompres armand of median nerve S/P carpal tunnel release Dustin Zuniga IRON MOLDER HELPER Work Phone: Plan of Treatment Date Care Activity Detail Author Start: 10-09-2024 End: 10-09-2024 Patient encounter procedure 10/09/2024 3:00 PM EST Office Visit [facility] [address] [place] [address] Dustin Zuniga NP [address] [place], [place] [id number] [facility] Start: 08-28-2024 End: 08-28-2024 Patient encounter procedure [facility] Comment on above: Arrived Start: 08-03-2024 End: 08-03-2024 Patient encounter procedure 08/03/2024 2:30 PM EST Office Visit [facility] [address] [place] [address] Dustin Zuniga NP [address] [place] [address] [facility] Start: 07-24-2024 End: 07-24-2024 Patient encounter procedure 07/24/2024 10:30 AM EST Procedure Visit [facility] Janine Israel, DO [address] [place] [address] [facility] Start: 07-20-2024 End: 07-20-2024 Patient encounter procedure 07/20/2024 2:45 PM EDT Office Visit [facility] [address] [place] [phone] Janine Israel, DO [address] [place] [address] [facility] Start: 07-18-2024 End: 07-18-2024 Patient encounter procedure 07/18/2024 2:30 PM EDT Office Visit [facility] [address] [place] [id number] Janine Israel, DO [address] [place] [address] [facility] Start: 07-10-2024 End: 07-10-2024 Patient encounter procedure 07/10/2024 9:30 AM EDT Procedure Visit [facility] Janine Israel, DO [address] [place] [address] [facility] Start: 05-21-2024 Influenza vaccination Influenza Vacc ine (#1) [facility] Start: 1965 [facility] Immunizations Immunization Date Immunization Notes Care Provider Fa [facility] 06-17-2023 influenza, injectabl e, quadrivalent, preservative free Janine Israel DO Work Phone: [facility] 06-17-2023 influenza virus vacc ine, unspecified formulation Janine Israel DO Work Phone: [facility] 06-23-2022 influenza, injectabl e, quadrivalent, preservative free Janine Israel DO Work Phone: [facility] 07-01-2021 zoster vaccine recombinant Janine Israel DO Work Phone: [facility] 06-04-2021 influenza, injectabl e, quadrivalent, preservative free Janine Israel DO Work Phone: [facility] 02-22-2021 tetanus toxoid, redu patrick diphtheria toxoid, and acellular pertussis vaccine, adsorbed Janine Israel DO Work Phone: [facility] 02-22-2021 zoster vaccine recombinant Janine Israel DO Work Phone: [facility] 06-14-2020 influenza, seasonal, injectable Janine Israel DO Work Phone: [facility] 06-03-2020 influenza, injectabl e, quadrivalent, preservative free Janine Israel DO Work Phone: [facility] 05-18-2019 influenza, injectabl e, quadrivalent, preservative free Janine Israel DO Work Phone: [facility] 06-17-2018 influenza, injectabl e, quadrivalent, preservative free Janine Israel DO Work Phone: [facility] Payers Date Payer Category Payer Private Health Insurance [employer] [id number] 2024 Unknown 2024 Unknown [id number] 2016 Unknown [id number] 1965 Unknown [id number] [id number]. 593 1967 Unknown [id number] 2.16.840.1.668678.3.579.2. 593 1967 Unknown [id number] 2.16.840.1.561328.3.579.2. 593 1967 Unknown [id number] 2.16.840.1.399278.3.579.2. 177 1967 Unknown [id number] 2.16.840.1.732682.3.579.2. 1259 1967 Unknown [id number] 2.16.840.1.895900.3.579.2. 1259 1967 Unknown [id number] 2.16.840.1.474922.3.579.2. 1259 1967 Unknown [id number] 2.16.840.1.753712.3.579.2. 1259 1967 Unknown [id number] 2.16.840.1.493106.3.579.2. 1259 1967 Unknown [id number] 2.16.840.1.327688.3.579.2. 718 1967 Unknown [id number] 2.16.840.1.084413.3.579.2. 718 1967 Unknown [id number] 2.16.840.1.480147.3.579.2. 718 1967 Unknown [id number] 2.16.840.1.851109.3.579.2. 718 1967 Unknown [id number] 2.16.840.1.629764.3.579.2. 718 1959 Unknown [id number] Social History Date Type Detail Facility Start: 05-17-2024 Tobacco smoking stat [facility] Never smoked tobacco [facility] Start: 05-17-2024 Tobacco use and exposure Smokeless t obacco non-user [facility] Start: 05-18-2024 End: 06-15-2024 Alcoholic beverage intake Current drinker of alcohol (finding) [facility] Start: 05-18-2024 End: 06-15-2024 Alcoholic beverage intake [facility] Start: 05-18-2024 End: 06-15-2024 Tobacco use panel [facility] Start: 1965 Sex assigned at Male [facility] Start: 2024 Gender identity Identifies as male gender (finding) [facility] Clinical Notes 03-19-2024 to 08-28-2024 Dustin Zuniga NP - 08/28/2024 3:00 PM Nicole Zuniga NP - 08/03/2024 2:30 PM ESTTelephone Encounter - Dustin Zuniga NP - 07/31/2024 11:00 AM Nicole Zuniga NP - 07/20/2024 2:45 PM EDT Note Date & Type Note Facility 08-28-2024 History of Presen t illness Narrative Images from the original note were not included. HISTORY OF PRESENT ILLNESS: POST OP PT Sanjeev Blackburn is an 59 y.o. @ male. [...] has normal right wrist ROM. Muscle Strength Sugar Presser: 4/5 Other Erythema: absent Scars: present (Well healed) Sensation: normal Pulse: present Comments: Left Hand Exam Tenderness Left hand tenderness location: tenderness over the incision. Range of Motion The patient has normal left wrist ROM. Muscle Strength Sugar Presser: 4/5 Other Erythema: absent Scars: present (Well healed) Sensation: normal Pulse: present X RAY : ELBOW - AP, LATERAL, DAVIS PERFORMED AT 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 Dustin Zuniag SHOWER MAID-DRUM SEALER documented in this encounter [facility] 08-09-2024 Note [id number] History of Presen t illness Narrative Images from the original note were not included. HISTORY OF PRESENT ILLNESS: Sanjeev Blackburn is an 59 y.o. @ male. 1st po x 10 days s/p RT CTR 07/24/24. Notes aching in wrist. Keeping wrapped with lex. Taking TYL. Denies N/T. Minimal swelling. Does [...] develop for requiring urgent evaluation. Dustin Zuniga SHOWER MAID-DRUM SEALER documented in this encounter [facility] 07-31-2024 Telephone encounter Note That is normal. The new skin that is healing underneath will push up and the skin will start to peel off. Try not to pick at it. [facility] Work Phone: 07-31-2024 Miscellaneous Notes That is normal. The new skin that is healing underneath will push up and the skin will start to peel off. Try not to pick at it. Patient called stating that his incision is raising up. Had carpal tunnel surgery on 07/24. Stats its not hot to the touch. documented in this encounter [facility] 07-31-2024 Telephone encounter Note Patient called stating that his incision is raising up. Had carpal tunnel surgery on 07/24. Stats its not hot to the touch. [facility] 07-24-[address] [facility] SURGERY Clinical Discharge Summary PERSON INFORMATION Name SANJEEV BLACKBURN Age 59 Years 1965 Sex MALE Language Faroese PCP Dev Perla DO Marital Status [facility] Service Ambulatory Surgery Acct# Arrival 07/24/2024 12:51:27 Visit Reason SURGERY - RIGHT CARPAL TUNNEL RELEASE Acuity LOS 056 01:15 Address: [facility] [address] Comment: PROVIDER INFORMATION VITALS INFORMATION Vital Sign [...] Follow up: With: Address: When: Dustin Zuniga [address] [place] [phone] [facility] (1) 08/03/2024 2:30 PM DIAGNOSIS Carpal tunnel syndrome, right Comment: PHYS DOC NOTES [facility] 07-24-2024 Note Procedure: Decompres armand of median nerve right wrist with release of carpal canal Pre Op Diagnosis: Carpal tunnel syndrome right Post Op Diagnosis: Carpal tunnel syndrome right Surgeon: Dr. Rayray Israel, Anesthesia: Local Indication for Surgery: The patient [...] percent Marcaine. Adaptic sterile dressings and an Lex bandage were applied with the thumb in apposition Complications: None [Electronically Signed on: 07/24/2024 13:44 EST] Janine Israel DO [Verified on: 07/24/2024 13:44 EST] Janine Israel DO [facility] 07-21-2024 Telephone encounter Note Post op pain rx. PDMP reviewed [facility] 07-21-2024 Miscellaneous Notes Post op pain rx. PDMP reviewed documented in this encounter [facility] 07-20-2024 History of Presen t illness Narrative Images from the original note were not included. HISTORY OF PRESENT ILLNESS: Sanjeev Blackburn is an 59 y.o. @ male. [...] but has improved. Notes soreness now. Wearing lex wrap. Taking TYL. States N/T has greatly [...] Arthritis CTS (carpal tunnel syndrome) 2018 Hypertension ([facility]) Kidney stones Neuroma of foot 2018 ALLERGIES: [...] Comments denies dribbling. Incontinence denies. Musculoskeletal: CommentsSee [facility] for details. Skin: Rash denies. Neurologic: Dizziness [...] as scribe for Dustin Zuniga CNP/errol Zuniga SHOWER MAID-DRUM SEALER documented in this encounter [facility] 07-13-2024 Note [id number] 07-10-2024 Note Procedure: Decompres armand of median nerve left wrist with release of carpal canal Pre Op Diagnosis: Carpal tunnel syndrome left Post Op Diagnosis: Carpal tunnel syndrome left Surgeon: Dr. Rayray Israel DO Anesthesia: Local [...] nylon suture. Adaptic sterile dressings and an Lex bandage were applied with the thumb in apposition Complications: None [Electronically Signed on: 07/10/2024 13:28 EDT] Janine Israel DO [Verified on: 07/10/2024 13:28 EDT] Janine Israel DO [facility] 07-10-[address] [facility] SURGERY Clinical Discharge Summary PERSON INFORMATION Name SANJEEV BLACKBURN Age 59 Years 1965 Sex MALE Language Faroese PCP Dev Perla DO Marital Status Med Service Ambulatory Surgery Acct# Arrival 07/10/2024 11:59:40 Visit Reason SURGERY - LEFT CARPAL TUNNEL RELEASE Acuity LOS 042 00:39 Address: [address] [place] [id number] Comment: PROVIDER INFORMATION VITALS INFORMATION Vital Sign [...] Follow up: With: Address: When: Janine Israel [address] [place] [address] Business (1) 07/20/2024 2:45 PM Type Location Start [facility] 07/24/2024 2:00 PM 07/24/2024 2:30 PM Confirmed DIAGNOSIS Carpal tunnel syndrome, left Comment: PHYS DOC NOTES [facility] 07-07-2024 Telephone encounter Note Post op pain rx. PDMP reviewed [facility] 07-07-2024 Miscellaneous Notes Post op pain rx. PDMP reviewed documented in this encounter [facility] 06-15-2024 History of Presen t illness Narrative Images from the original note were not included. HISTORY OF PRESENT ILLNESS: Sanjeev Blackburn is an 59 y.o. @ male. Chief complaint LT hand N/T B/L wrist. LT>RT. Here to discuss options LT wrist and N/T x 15 years and getting worse over time. Denies injury. Admits intermittent N/T in thumb, IF, MF. Occurs when driving, HS, writing, eating. If he straightens wrist if relieves symptoms. Denies weakness, denies dropping things. + wake at HS. Minimal pain. Not able to tolerate night splints. Taking meloxicam for ankle. Prior treatment: PCP 2022, EMG at [facility] 08/10/23, tried splints, taking melocicam LT handed MEDICATION: Current Outpatient Medications on File Prior [...] Arthritis CTS (carpal tunnel syndrome) 2018 Hypertension ([facility]) Kidney stones Neuroma of foot 2018 ALLERGIES: Allergies Allergen Reactions Cephalexin Hives VITALS: Visit Vitals Ht 5' 11 Wt 247 lb BMI 34.45 kg/m Smoking Status Never BSA 2.37 m Review of Systems General: Fatigue denies. Fever denies. Night sweats denies. ENT: Decreased hearing denies. Respiratory: Cough denies. Shortness of breath denies. Cardiovascular: Chest pain denies. Cyanosis denies. Irregular heartbeat denies. Gastrointestinal: Comments denies incontinence of stool . Nausea denies. Hematology: Bleeding problems denies. Genitourinary: Comments denies dribbling. Incontinence denies. Musculoskeletal: CommentsSee [facility] for details. Skin: Rash denies. Neurologic: Dizziness denies. Headache denies. Examination General Examination: GENERAL EXAMINATION in no acute distress, well developed, well nourished . HEART: no jugular venous distention . LUNGS: regular unlabored, normal effort . NEUROLOGIC: alert and oriented . PSYCH: oriented to person, place, time and situation . PHYSICAL EXAM: Ortho Exam LEFT WRIST Able to make a fist No thenar wasting Decreased sensation median distribution Positive Phalens Negative Tinels ASSESSMENT: ICD-10-CM 1. Carpal tunnel syndrome on left G56.02 2. Left wrist pain M25.532 PLAN: I discussed options of surgical and non surgical treatment. Risks/benefits of each and chances for success/ failure. Discussion included but was not limited to the risk of infection, blood clot, failure to improve and need for additional surgery. The patient was advised that surgery is not likely to make them pain free. I answered all of the patients questions. I recommend a LT Carpal tunnel release. The patient was instructed to vidal the operative site with the word Yes prior to arriving at the hospital and the patient verbalized an understanding. The patient wants to proceed and informed consent is obtained. Dr. Israel obtained history and examined the patient, I am acting as scribe for Dr. Israel/errol Israel D.O. documented in this encounter [facility] 05-18-2024 History of Presen t illness Narrative Images from the original note were not included. HISTORY OF PRESENT ILLNESS: Sanjeev Blackburn is an 59 y.o. @ male. Chief complaint B/L wrist pain New patient: B/L wrist. LT>RT. Referred by Eli. EMG [facility] 08/10/23 LT wrist pain and N/T x 15 years. Denies injury. Admits intermittent N/T in thumb, IF, MF. Occurs when driving, HS, writing, eating. If he straightens wrist if relieves symptoms. Denies weakness, denies dropping things. + wake at HS. Prior treatment: PCP 2022, EMG at [facility] 08/10/23 LT handed I reviewed notes from the patient's primary care provider dated April 25, 2024. The patient was seen for an annual exam. Patient was noted to have decreased range of motion of the right ankle the patient has also had numbness in the upper extremities an EMG was ordered the patient was given a prescription for allopurinol. I reviewed an EMG from [facility] dated August 10 2023 it revealed extensive EMG changes in the upper extremities consistent with carpal tunnel syndrome severe bilaterally MEDICATION: Current Outpatient Medications on File Prior to Visit Medication Sig Dispense Refill cholecalciferol (Vitamin D-3) 25 MCG (1000 UT) capsule TAKE 1 CAPSULE (125 MCG) ORALLY DAILY FOR 90 DAYS lisinopril-hydroCHLOROthiazide 20-25 MG tablet Take 1 tablet by mouth Daily meloxicam (Mobic) 15 MG tablet metoprolol succinate XL (Toprol-XL) 50 MG 24 hr tablet Take 50 mg by mouth Daily traMADol (Ultram) 50 MG tablet allopurinol (Zyloprim) 100 MG tablet Pitavastatin Calcium (Livalo) 4 MG tablet No current facility-administered medications on file prior to visit. MEDICAL HISTORY: Past Medical History: Diagnosis Date Arthritis CTS (carpal tunnel syndrome) 2018 Hypertension ([facility]) Kidney stones Neuroma of foot 2018 ALLERGIES: Allergies Allergen Reactions Cephalexin Hives VITALS: Visit Vitals Ht 5' 11 Wt 245 lb BMI 34.17 kg/m Smoking Status Never BSA 2.36 m PHYSICAL EXAM: Ortho Exam LEFT WRIST No thenar wasting Decreased sensation median distribution Positive Phalens Negative Tinels ASSESSMENT: ICD-10-CM 1. Bilateral carpal tunnel syndrome G56.03 PLAN: I explained the EMG, diagnosis and reviewed treatment options of bracing, observation and carpal tunnel release. I discussed risks/benefits of each and chances for success/ failure. Discussion included but was not limited to the risk of infection, nerve damage, blood clot, failure to improve and need for additional surgery. I answered all of the patients questions. Follow up in 4-6 weeks, any issues/concerns follow up sooner. Dr. Israel obtained history and examined the patient, I am acting as scribe for Dr. Israel/errol Israel D.O. documented in this encounter [facility] 03-19-2024 Note Education Materials Urology Kidney Stones [...] these instructions at home: Medicines ? Take sdli-hcd-zxwhlyd and prescription medicines only as told by [...] Reviewed: 2022 Elsevier Patient Education ? 2022 [employer]. [facility] Evaluation note Diagnosis Post-operative pain- Primary [...] joint, forearm [facility] Diagnosis Bilateral carpal tunnel syndrome- Primary Carpal tunnel syndrome [facility] Diagnosis Carpal tunnel syndrome on left- Primary Carpal tunnel syndrome Left wrist pain Pain in joint, forearm [...] section and content) DATE CREATED AUTHOR 03/15/[address] [facility] DATE CREATED AUTHOR AUTHOR'S ORGANIZ ATION 03/16/2018 [facility] DATE CREATED AUTHOR AUTHOR'S ORGANIZ ATION 11/28/2022 [facility] DATE CREATED AUTHOR AUTHOR'S ORGANIZ ATION 09/17/2023 [facility] DATE CREATED AUTHOR AUTHOR'S ORGANIZ ATION 08/31/2024 [facility] EPIC DATE CREATED AUTHOR AUTHOR'S ORGANIZ ATION 01/23/2025 [facility] Care Teams (unrecognized sec tion and content) Data Governance Consultant Relationship Specialty Start Date End Date Dev Perla MD [address] [place] [id number] PCP - General Family Medicine 05/17/24 Data Governance Consultant Relationship Specialty Start Date End Date Dev Perla MD [address] [place] [id number] PCP - General Family Medicine 05/17/24 Data Governance Consultant Relationship Specialty Start Date End Date Dev Perla MD [address] [place] [id number] PCP - General Family Medicine 05/17/24 Data Governance Consultant Relationship Specialty Start Date End Date Dev Perla MD [address] [place] [id number] PCP - General Family Medicine 05/17/24 Data Governance Consultant Relationship Specialty Start Date End Date Dev Perla MD [address] [place] [address] PCP - General Family Medicine 05/17/24 Data Governance Consultant Relationship Specialty Start Date End Date Dev Perla MD [address] [place] [address] PCP - General [facility] 05/17/24 Data Governance Consultant Relationship Specialty Start Date End Date Dev Perla MD [address] [place], [place] [id number] PCP - [facility] 05/17/24 Data Governance Consultant Relationship Specialty Start Date End Date Dev Perla MD [address] [place] [address] PCP - General [facility] 05/17/24 Data Governance Consultant Relationship Specialty Start Date End Date Dev Perla MD [address] [place] [address] PCP - General Family Medicine 05/17/24 Reason for Visit (unrecogniz ed section and content) Reason Comments Post-op Numbness Tingling Reason Comments Post-op Reason Comments Follow-up Reason Comments Pain FOR RECORDS PERTAINING TO PATIENTS WHO ARE [...] BE BASED ON THE PRIMARY CLINICAL RECORDS. [facility] [employer] [facility]. provides no warranty or guarantee of the accuracy or completeness of information in this document.
--- OUTSIDE RECORDS SUMMARY | 2025-04-15 09:19 | XMS_ITS | Patient Health Record ---
Author Organization [facility] [place] Address [address] [place] [address] Care Team Providers Care Heel Breaster Name Role Phone Dev Ch DO Primary Care Provider UnavailMulu Moya Unavailable [phone] Alfonso Schaefer Unavailable [phone] Ros Caldera Unavailable [phone] Mulu Reyna Unavailable [phone] Allergies Allergen (clinical drug ingredient) Drug/Non Drug Allergy documented on EMR Reaction Allergy Type Onset Date Status Keflex hives Drug Allergy Active Results Component Value Reference Range Notes CT ABDOMEN/PELVIS STONE PROT OCOL (Not yet reviewed by provider) Interpretation: Performing Lab: Notes/Report: XR ankle RT min 3V (Not yet reviewed by provider) Interpretation: Performing Lab: Notes/Report: Source Facility: [place] [id number] XRay Report Signed Patient: SANJEEV BLACKBURN MR#: [id number] : 1965 Acct:[id number] Age/Sex: 59 / M ADM Date: 09/05/24 Loc: RAD Attending Dr: Ros Caldera D.P.M. Ordering Physician: Ros Caldera D.P.M. Date of Service: 09/05/24 Procedure(s): XR ankle RT min 3V Accession Number(s): [id number] cc: Ros Caldera D.P.M.; DEV CH [place] [id number] Patient Name: SANJEEV BLACKBURN MRN: [id number] date: 1965 Sex: M Assigned Patient Location: RAD Current Patient Location: Accession/Order Number: [id number] Exam Date: 09/05/2024 15:44 Report Date: 09/06/2024 13:44 At the request of: ROS CALDERA Procedure: XR ankle RT min 3V PROCEDURE: XR ankle RT min 3V HISTORY: RIGHT ANKLE PAIN COMPARISON: XR ankle right 05/10/2024 FINDINGS: BONES:Prosthetic replacement of the talus. No hardware fracture or loosening. No bone fracture dislocation. SOFT TISSUES:Mild soft tissue swelling surrounding the ankle. EFFUSION:None visible. OTHER: Negative. XR/XR ankle RT min 3V IMPRESSION: 1. Stable surgical changes without evidence of hardware failure or change in alignment. Electronically authenticated by: GIANNI CARLSON Date: 09/06/2024 13:44 Dictated By: Gianni Carlson M.D. Signed By: 09/06/24 1347 DD/ 1344 TD/TT: Home Paraprofessional: [place] [address] XRay Report Signed Patient: ERMIAS BLACKBURN MR#: [id number] : 1965 Acct:[id number] Age/Sex: 59 / M ADM Date: 09/05/24 Loc: RAD Attending Dr: Ros Caldera D.P.M. Ordering Physician: Ros Caldera D.P.M. Date of Service: 09/05/24 Procedure(s): XR ankle RT min 3V Accession Number(s): [id number] cc: Ros Caldera D.P.M.; DEV CH [address] [address] Patient Name: SANJEEV BLACKBURN MRN: [id number] date: 1965 Sex: M Assigned Patient Location: RAD Current Patient Location: Accession/Order Numb er: [id number] Exam Date: 15:44 Report Date: 09/06/2024 13:44 At the request of: ROS CALDERA Procedure: XR ankle RT min 3V PROCEDURE: XR ankle RT min 3V HISTORY: RIGHT ANKLE PAIN COMPARISON: XR ankle right 05/10/2024 FINDINGS: BONES:Prosthetic rep lacement of the talus. No hardware fracture or loosening. No bone fracture dislocation. SOFT TISSUES:Mild so ft tissue swelling surrounding the ankle. EFFUSION:None visible. OTHER: Negative. X R/XR ankle RT min 3V IMPRESSION: 1. Stable surgical c hanges without evidence of hardware failure or change in alignment. Electronically authe nticated by: GIANNI CARLSON Date: 09/06/2024 13:44 Dictated By: Gianni Carlson M.D. Signed By: 09/06/241346 DD/ 43 TD/TT: Home Paraprofessional: Reason For Referral No Information Medications Medication SIG (Take, Route, Frequency, Duration) Notes Start Date End Date Status Tylenol 325 MG 1 tablet as needed O rally every 6 hrs Active Vitamin D Active Meloxicam 15 MG 1 tablet Orally Once a day for 30 days 09/06/2024 Active Allopurinol 100 MG 1 tablet daily Active Aspirin 81 Active Lisinopril Active Livalo Active Meloxicam 15 MG 1 tablet Orally Once a day for 30 02/29/2024 Active Metoprolol Succinate ER 25 MG Oral for 30 Active traMADol HCl 50 MG 1 tablet as needed O rally every 4 hours for 7 days 08/15/2024 Active traMADol HCl 50 MG 1-2 tablet as needed Orally every 8 hrs prn pain for 30 days 09/21/2024 Active traMADol HCl 50 MG 1 tablet as needed O rally every 4 hours for 7 days 11/28/2024 Active Pregabalin 75 MG 1 capsule Orally twi ce daily for 30 days 11/28/2024 Active Social History Tobacco Use: Social History Observation Description Date Details (start date - stop date) Never Smoker NA - NA Tobacco Use/Smoking Question Answer Notes Patient is a nonsmoker Alcohol Screen (Audit-C) Question Answer Notes Did you have a drink containing alcohol in the p ast year? Yes How often did you have a dri nk containing alcohol in the past year? 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) Active confirmed Problem 9751759081996334 Primary osteoarthritis, right ankle and foot (M19.071) Active confirmed Problem 156270909579176 Contracture, right ankle (M24.571) Active confirmed Problem 48413776431432395 Other specifie d joint disorders, right ankle and foot (M25.871) Active confirmed Problem 716861707753262 Osteochondritis dissecans, right ankle and joints of right foot (M93.271) Active confirmed Problem 31397992 Disruption of external operation (surgical) wound, not elsewhere classified, initial encounter (T81.31XA) Active confirmed Problem 96675409 Disruption of external operation (surgical) wound, not elsewhere classified, subsequent encounter (T81.31XD) Active confirmed Problem 920274989 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) Active confirmed Problem Hypertension (26402574) Hypertension (I10) Active confirmed Problem Gout (69352505) Gout (M10.9) Active confirmed Problem Kidney stone (96977840) Kidney stone (N20.0) Active confirmed Problem Arthralgia of the ankle and/or foot (375680910) Right ankle pain (M25.571) Active confirmed Problem Benign prostatic hypertrophy without outflow obstruction (812372704) Benign localized prostatic hyperplasia without lower urinary tract symptoms (LUTS) (N40.0) Active confirmed Problem Leukocytosis (162882095) Elevated WBCs (D72.829) Active confirmed Problem Essential hypertension (65033796) BP (high blood pressure) (I10) Active confirmed Problem High cholesterol (00410797) High cholesterol (E78.00) Active confirmed Problem 6911662175106442 Arthritis of le ft ankle (M19.072) Active confirmed Problem Localized, primary osteoarthritis of the ankle and/or foot (658319469) Arthritis of ankle, right (M19.071) Active confirmed Problem 7104282497448203 Arthritis of right ankle (M19.071) Active confirmed Problem Contracture of joint of right ankle (disorder) (171703728119213) Contracture of right ankle (M24.571) Active confirmed Problem 33859819538568938 Impingement of right ankle joint (M25.871) Active confirmed Problem 860443879 Abnormal finding s on diagnostic imaging of other specified body structures (R93.89) Active confirmed Problem 59389289613159478 Impingement of left ankle joint (M25.872) Active confirmed Vital Signs Heart Rate 79 /min 09/05/2024 Temperature 96.8 degrees Fahrenheit 09/05/2024 Respiratory Rate 16 /min 05/10/2024 Oximetry 98 % 09/05/2024 Height 71 in 09/05/2024 Weight 245 lbs 06/13/2024 BMI 34.17 kg/m2 06/13/2024 Encounters Encounter Location Date Provider Diagnosis Urology [facility] [address] [place] [address] 05/18/2024 Alfonso Schaefer Kidney stone N20.0 ; Hydronephrosis N13.30 and Malignant neoplasm of prostate C61 [facility] (PODIATRY) [address] [place] [address] 09/05/2024 Peter Highlander Arthritis of right ankle M19.071 ; Osteochondritis dissecans, right ankle and joints of right foot M93.271 ; Unspecified mononeuropathy of right lower limb G57.91 and Right ankle pain M25.571 [facility] (PODIATRY) [address] [place] [address] [place] [address] 05/10/2024 Peter Highlander Arthritis of right ankle M19.071 ; Osteochondritis dissecans, right ankle and joints of right foot M93.271 and Right ankle pain M25.571 [facility] (PODIATRY) [address] [place] [address] [place] [address] 09/21/2024 Mulu Reyna [facility] (PODIATRY) [address] [place] [address] [place] [address] 11/06/2024 Peter Highlander Arthritis of right ankle M19.071 [facility] (PODIATRY) [address] [place] [address] [place] [address] 11/28/2024 Peter Highlander Arthritis of right ankle M19.071 [facility] (PODIATRY) [address] [place] [address] [place] [address] 06/12/2024 Ros Caldera [facility] (PODIATRY) [address] [place] [address] [place] [address] 06/13/2024 Ros Caldera Right ankle pain M25.571 [facility] (PODIATRY) [address] [place] [address] [place] [address] 06/28/2024 Ros Caldera Right ankle pain M25.571 [facility] (PODIATRY) [address] [place] [address] [place] [address] 07/19/2024 Ros Buckhelen [facility] (PODIATRY) [address] [place] [address] [place] [address] 07/20/2024 Ros [facility] [place] [facility] (PODIATRY) [address] [place] [address] [place] [address] 08/14/2024 [facility] [address] [place] [address] 04/17/2024 Alfonso Schaefer [facility] (PODIATRY) [address] [place] [address] [place] [address] 05/19/2024 Ros [facility] Right ankle pain M25.[address] [place] [address] 06/13/2024 Mulu Herrign Malignant neoplasm o f prostate C61 ; Personal history of urinary calculi Z87.442 and Personal history of other diseases of urinary system Z87.448 Assessments Encounter Date Diagnosis (ICD Code) Assessment Notes Treatment Notes Treatment Clinical Notes Section Notes 05/10/2024 Arthritis of right ankle (ICD-10 - M19.071) Patient follows up for his right ankle and has had a long postoperative recovery. Associated with wound requiring multiple surgeries since his total talus implant which was performed in August. He is doing quite well at the present moment. I did refill his tramadol. Recommended ASO ankle bracing for prolonged activity especially if on uneven surfaces. Follow-up in 3 months with weightbearing ankle x-rays call sooner if needed 05/10/2024 Osteochondritis dissecans, right ankle and joints of right foot (ICD-10 - M93.271) 06/13/2024 Malignant neoplasm of prostate (ICD-10 - C61) 06/13/2024 Personal history of urinary calculi (ICD-10 - Z87.442) 05/19/2024 Right ankle pain (ICD-10 - M25.571) 06/13/2024 Right ankle pain (ICD-10 - M25.571) 06/28/2024 Right ankle pain (ICD-10 - M25.571) 11/06/2024 Arthritis of right ankle (ICD-10 - M19.071) 11/28/2024 Arthritis of right ankle (ICD-10 - M19.071) 05/18/2024 Kidney stone (ICD-10 - N20.0) 05/18/2024 Hydronephrosis (ICD-10 - N13.30) 09/05/2024 Arthritis of right ankle (ICD-10 - M19.071) Patient seen and evaluated. Patient education provided and all questions answered to his satisfaction. I had a long discussion with the patient regarding the status of his ankle as he continues to require ultram on a fairly regular basis. Some of his pain may be in fact due to neuritis/nerve entrapment particularly over the superficial peroneal nerve therefore I recommended a trial of Lyrica 75 mg 1 p.o. twice daily which was sent to his pharmacy. I also provided him a refill of ultram which she is to take only when absolutely necessary. I also refilled meloxicam which she may continue to take on a daily basis and patient relates that his primary care is aware of his daily use of NSAIDs.Patient is roughly 1 year status post total talus replacement and although his preoperative symptoms have resolved he has developed secondary pain which does limit his activity on a regular basis. I am hopeful over the next year he will continue to improve however given his history of infection I related to him that there is a strong possibility that he will require conversion to an ankle fusion or earlier than planned.At follow-up I would like weightbearing ankle x-rays. 09/05/2024 Osteochondritis dissecans, right ankle and joints of right foot (ICD-10 - M93.271) 09/05/2024 Unspecified mononeuropathy of right lower limb (ICD-10 - G57.91) 06/13/2024 Personal history of other diseases of urinary system (ICD-10 - Z87.448) 05/10/2024 Right ankle pain (ICD-10 - M25.571) 05/18/2024 Malignant neoplasm of prostate (ICD-10 - C61) 09/05/2024 Right ankle pain (ICD-10 - M25.571) 05/18/[address] scan. Renal US and CT both reviwed today. Telehealth to review new CT results. See back in 9 months w PSA Plan Of Treatment Pending Test Test Name Order Date XR Ankle RT (3 views) * (161) 05/10/2024 XR Ankle RT (3 views) * (161) 09/05/2024 CT ABDOMEN/PELVIS STONE PROTOCOL 024 MRI Prostate w/wo contrast 10/03/2020 Short Leg Cast - IH 09/16/2023 PSA 03/10/2024 AFB Specimen Processing 01/13/2024 AFB Specimen Processing 12/17/2023 Acid Fast Smear 12/17/2023 Acid Fast Smear 01/13/2024 Acid Fast Culture 01/13/2024 Acid Fast Culture 12/17/2023 XR ankle RT min 3V 09/29/2023 XR ankle RT min 3V 09/06/2024 Fungus Stain 10/18/2023 Fungus Stain 12/17/2023 Fungus Stain 01/13/2024 Fungus (Mycology) Culture 10/18/2023 Future Test Test Name Order Date PSA, TOTAL 05/21/2024 PSA, TOTAL 11/13/2024 PSA, TOTAL 11/17/2024 Insurance Providers Payer Name Payer Address Payer Phone Subscriber Number Group Number Insured Name Patient Relationship to Insured Coverage Start Date Coverage End Date O [id number] PPO [address] [address] [place] [phone] [id number] Sanjeev Blackburn Self - patient is the insured 4 Medications Administered Medication Instructions Date of Administration Dosage Notes Betamethasone Acetate 12/01/2022 2 mL DEPO-Medrol 04/14/2023 1 mL DEPO-Medrol 04/14/2023 1 mL Medical (General) History Medical History History ICD Code kidney stones hypertension high cholesterol Elevated prostate specific antigen (PSA) R97.20 Infection of left ankle wound Malignant neoplasm of prostate C61 Surgical History Surgery Date(Month/Year) Left lateral ankle stabiliza tion (Alena) peroneal tendon repair and ankle arthroscopy 07/31/2016 Left endoscopic plantar fasc iotomy, gastrocnemius recession, harvest of bone marrow aspirate, left leg and implantation of BMA concentrate to bilateral ankle joints, implantation of platelet rich plasma to left Achilles tendon 06/21/2018 Right ankle arthroscopy w/ e xtensive debridement, harvest and implantation of bone marrow aspirate concentrate 08/29/2018 right ankle arthrotomy w/ de bridement of lateral gutter, left ankle steroid injection 09/01/2021 right ankle arthroscopy with lateral gutter debridement, lateral ankle stabilization, modified alena 09/01/2019 Prostate fusion biopsy 08/16/23 right talectomy with total t alus replacement, gastrocnemius recession, endoscopic plantar fasciotomy Dr Caldera 09/10/23 right ankle I&D, NPWT application 024 right ankle delayed primary closure, allogenic skin substitute and NPWT 12/20/2023 right ankle delayed primary closure, allogenic skin substitute and NPWT 01/13/24 Hospitalization History Reason Date(Month/Year) see above
--- NOTE | 2025-04-15 09:25 | XR_ITS ---
The [address] [address] Patient Name: GURVINDER CHAUDHRY MRN: [id number] date: 1965 Sex: M Assigned Patient Location: ED.MAIN Current Patient Location: ED.MAIN Accession/Order Number: [id number] Exam Date: 04/15/2025 10:05 Report Date: 04/15/2025 10:07 At the request of: KATIE TSANG MD Procedure: XR foot RT min 3V RIGHT ANKLE - 3 views, right foot 3 views CLINICAL HISTORY: Atraumatic pain COMPARISON: Right ankle 09/05/2024 FINDINGS: The talus prosthesis is in place without radiographic complication. Soft tissue swelling is present. Degenerative changes involving the ankle mortise without acute bony process. Plantar spurring. Right foot: No focal soft tissue abnormality. No acute bony process is seen. Mild degenerative changes of the midfoot and forefoot without bony erosions. XR/XR foot RT min 3V IMPRESSION: SOFT TISSUE SWELLING INVOLVING THE RIGHT ANKLE WITH TALUS PROSTHESIS IS IN PLACE. NO ACUTE BONY PROCESS INVOLVING THE RIGHT ANKLE OR FOOT. Impression dictated by: Brian Castro Jr., D.O. 04/15/2025 10:07 AM Dictation Location: [facility] Electronically authenticated by: [id number] Y Date: 04/15/2025 10:07
--- NOTE | 2025-04-15 09:25 | XR_ITS ---
The [address] [address] Patient Name: GURVINDER CHAUDHRY MRN: [id number] date: 1965 Sex: M Assigned Patient Location: ED.MAIN Current Patient Location: ED.MAIN Accession/Order Number: [id number] Exam Date: 04/15/2025 10:05 Report Date: 04/15/2025 10:07 At the request of: KATIE TSANG MD Procedure: XR foot RT min 3V RIGHT ANKLE - 3 views, right foot 3 views CLINICAL HISTORY: Atraumatic pain COMPARISON: Right ankle 09/05/2024 FINDINGS: The talus prosthesis is in place without radiographic complication. Soft tissue swelling is present. Degenerative changes involving the ankle mortise without acute bony process. Plantar spurring. Right foot: No focal soft tissue abnormality. No acute bony process is seen. Mild degenerative changes of the midfoot and forefoot without bony erosions. XR/XR ankle RT min 3V IMPRESSION: SOFT TISSUE SWELLING INVOLVING THE RIGHT ANKLE WITH TALUS PROSTHESIS IS IN PLACE. NO ACUTE BONY PROCESS INVOLVING THE RIGHT ANKLE OR FOOT. Impression dictated by: Brian Castro Jr., D.O. 04/15/2025 10:07 AM Dictation Location: [facility] Electronically authenticated by: [id number] Y Date: 04/15/2025 10:07
--- NOTE | 2025-04-15 09:26 | ED.GENADUL1 ---
HPI HPI - General Adult General Chief complaint: Extremity Problem, Nontraumatic Stated complaint: WEAKNESS Time Seen by Provider: 04/15/25 09:01 Source: patient Mode of arrival: Wheelchair History of Present Illness HPI narrative: 59-year-old male presents for pain in his right foot and ankle area. He has had surgery on this previously, tarsal replacement. He has had some ongoing issues and sees a pump stitcher about this issue. Yesterday he was sitting outside and the pain got worse and he cannot bear weight on it. He has crutches and a scooter at home but was running low on his hydrocodone. There was no specific injury, he did not fall. The pain is moderate to severe if he puts weight on it. Related Data Home Medications �Medication �Instructions �Recorded �Confirmed allopurinol 100 mg tablet 100 mg PO DAILY 08/25/23 04/15/25 lisinopril 20 1 tab PO DAILY 08/25/23 04/15/25 mg-hydrochlorothiazide 25 mg tablet metoprolol succinate 50 mg 50 mg PO DAILY 08/25/23 04/15/25 tablet,extended release 24 hr pitavastatin calcium 4 mg tablet 4 mg PO DAILY 08/25/23 04/15/25 acetaminophen 500 mg tablet 1,000 mg PO .q12 fever or pain 12/16/23 04/15/25 (Acetaminophen Extra Strength) glucosamine sulfate 500 mg tablet 250 mg PO BID 04/15/25 04/15/25 (Glucosamine) magnesium 200 mg tablet 200 mg PO DAILY 04/15/25 04/15/25 meloxicam 15 mg tablet 15 mg PO DAILY 04/15/25 04/15/25 Previous Rx's �Medication �Instructions �Recorded cholecalciferol (vitamin D3) 125 125 mcg PO DAILY 90 days #90 caps 09/10/23 mcg (5,000 unit) capsule hydrocodone 5 mg-acetaminophen 325 1 tab PO Q6H PRN pain 7 days #28 01/11/24 mg tablet tabs amoxicillin 875 mg-potassium 1 tab PO BID #14 tabs 04/15/25 clavulanate 125 mg tablet hydrocodone 5 mg-acetaminophen 325 1 tab PO Q6H PRN pain 5 days #20 04/15/25 mg tablet tabs Allergies Allergy/AdvReac Type Severity Reaction Status Date / Time cephalexin (From Keflex) Allergy Hives Verified 04/15/25 09:06 pregabalin (From Lyrica) Allergy Rash Verified 04/15/25 09:06 Opioid HPI Opioid Management Most Recent Opioid Data: Last Pain Scale 6 Today, 09:40 Last MAR Pain Assessment Today, 09:40 Last ORT Total Score 0 12/16/23, 12:15 Last ORT Risk Category Low Risk 12/16/23, 12:15 Review of Systems ROS Narrative A ten point review of systems is negative except as noted above. [facility] Medical History (Updated 04/15/25 @ 10:35 by Ben Medrano MD) Gout �M10.9 - Gout, unspecified (ICD-10) Abscess of ankle �L02.419 - Cutaneous abscess of limb, unspecified (ICD-10) Arthritis of right ankle �M19.071 - Primary osteoarthritis, right ankle and foot (ICD-10) Impingement of right ankle joint �M25.871 - Other specified joint disorders, right ankle and foot (ICD-10) Osteochondritis dissecans �M93.20 - Osteochondritis dissecans of unspecified site (ICD-10) Ankle arthritis �M19.079 - Primary osteoarthritis, unspecified ankle and foot (ICD-10) Migraine �G43.909 - Migraine, unspecified, not intractable, without status migrainosus (ICD-10) Elevated PSA �R97.20 - Elevated prostate specific antigen [PSA] (ICD-10) Kidney stones �N20.0 - Calculus of kidney (ICD-10) High cholesterol �E78.00 - Pure hypercholesterolemia, unspecified (ICD-10) Hypertension �I10 - Essential (primary) hypertension (ICD-10) S/P extracorporeal shock wave therapy �Z98.890 - Other specified postprocedural states (ICD-10) Prostate cancer (08/2023) �C61 - Malignant neoplasm of prostate (ICD-10) Surgical History S/P surgical manipulation of ankle joint �Z98.890 - Other specified postprocedural states (ICD-10) Hx of prostate biopsy (~08/16/23) �Z98.890 - Other specified postprocedural states (ICD-10) History of colonoscopy �Z98.890 - Other specified postprocedural states (ICD-10) History of foot surgery �Z98.890 - Other specified postprocedural states (ICD-10) History of ankle surgery �Z98.890 - Other specified postprocedural states (ICD-10) Family History (Updated 12/16/23 @ 12:05 by Nereida Mederos) Other Family history of hypertension Family history of stroke Social History (Updated 12/16/23 @ 12:07 by Nereida Mederos) Within the past year, how often did you have a drink containing alcohol: 2-3 times a week Within the past year, how many standard drinks containing alcohol did you have on a typical day: 1 or 2 Within the past year, how often did you have six or more drinks on one occasion: never Total score: 0 Score interpretation: A score less than 4 is consistent with normal alcohol consumption. 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 Little interest or pleasure in doing things: not at all Feeling down, depressed, or hopeless: not at all Feel stressed/tense/nervous/anxious/difficulty sleeping: not at all Do you think of yourself as: straight/heterosexual Gender Identity: male Exam Narrative Exam Narrative: Nurses note and vital signs reviewed and patient is not hypoxic. General: The patient appears in no apparent distress. Skin: Warm, dry, no pallor noted. There is no rash noted. Head: Normocephalic, atraumatic Eye: Normal conjunctiva, no drainage, Ears, Nose, Mouth, and Throat: oral mucosa is moist. Nares patent. Cardiovascular: Regular Rate and Rhythm Respiratory: Patient is in no distress, no accessory muscle use Back: non-tender GI: Nontender Musculoskeletal: His right foot and ankle are examined. There is no deformity. There is no bruising. There is erythema on the dorsum of his foot and a well-defined area. He had been using a topical cream and has stopped it because he broke out in a rash from that and the Lyrica. This erythema is improving and that is not why he is here today. Neurological: Awake and alert Psychiatric: Cooperative Constitutional Vital Signs, click to edit/add: Last Vital Signs Temp 98.4 F 04/15/25 09:06 Pulse 67 04/15/25 09:06 Resp 16 04/15/25 09:06 BP 156/94 H 04/15/25 09:06 Pulse Ox 97 04/15/25 09:06 O2 Del Method Room Air 04/15/25 09:06 Course Vital Signs Vital signs: Vital Signs Temperature 98.4 F 04/15/25 09:06 Pulse Rate 67 04/15/25 09:06 Respiratory Rate 16 04/15/25 09:06 Blood Pressure 156/94 H 04/15/25 09:06 Pulse Oximetry 97 04/15/25 09:06 Oxygen Delivery Method Room Air 04/15/25 09:06 Temperature 98.4 F 04/15/25 09:06 Pulse Rate 67 04/15/25 09:06 Respiratory Rate 16 04/15/25 09:06 Blood Pressure 156/94 H 04/15/25 09:06 Pulse Oximetry 97 04/15/25 09:06 Oxygen Delivery Method Room Air 04/15/25 09:06 Medical Decision Making MDM Narrative Medical decision making narrative: X-rays and blood work were discussed with Dr. Caldera and we have agreed the patient will be discharged home on Augmentin and [place] and he will call the office in the morning. He has a scooter and crutches at home that he can utilize. Treatment diagnosis and follow-up were discussed with the patient and his . Differential Diagnosis Differential Diagnosis: Foot pain, arthralgia Lab Data Lab results reviewed: Yes I reviewed the patient's lab results Labs: Lab Results 04/15/25 Range/Units 09:41 WBC 15.7 H (4.0-11.0) 10^3/uL RBC 4.95 (4.70-6.10) 10^6/uL Hgb 14.7 (14.0-18.0) g/dL Hct 44.9 (42.0-54.0) % MCV 90.7 (80.0-94.0) fL MCH 29.7 (25.9-34.0) pg MCHC 32.7 (29.9-35.2) g/dL RDW 15.5 H (11.0-15.0) % Plt Count 248 (150-450) 10^3/uL MPV 9.8 (9.5-13.5) fL Seg Neuts % (Manual) 87.0 H (43.0-75.0) Lymphocytes % (Manual) 6.0 L (20.5-60.0) % Monocytes % (Manual) 6.0 (1.7-12.0) % Eosinophils % (Manual) 0.0 L (0.9-7.0) % Basophils % (Manual) 1.0 (0.2-2.0) % Neutrophils # (Manual) 13.65 H (1.4-6.5) 10^3/uL Lymphocytes # (Manual) 0.94 L (1.20-3.80) 10^3/uL Monocytes # (Manual) 0.94 H (0.30-0.80) 10^3/uL Eosinophils # (Manual) 0.00 (0.00-0.70) 10^3/uL Basophils # (Manual) 0.15 H (0.00-0.10) 10^3/uL Sodium 140 (136-145) mmol/L Potassium 3.9 (3.5-5.1) mmol/L Chloride 102 (98-107) mmol/L Carbon Dioxide 30.7 (21.0-32.0) mmol/L Anion Gap 11.2 BUN 44.0 H (7.0-18.0) mg/dL Creatinine 1.31 H (0.70-1.30) mg/dL Est GFR ( Amer) >60 (>=60 mL/min/1.73m^2) Est GFR (Non-Af Amer) 56 L (>=60 mL/min/1.73m^2) BUN/Creatinine Ratio 33.6 Glucose 95 (74-106) mg/dL Calcium 9.4 (8.5-10.1) mg/dL Imaging Data Foot x-ray, ankle x-ray: Radiologist's impression: ITS Impressions Ankle X-Ray 04/15/25 09:25 IMPRESSION: SOFT TISSUE SWELLING INVOLVING THE RIGHT ANKLE WITH TALUS PROSTHESIS IS IN PLACE. NO ACUTE BONY PROCESS INVOLVING THE RIGHT ANKLE OR FOOT. Impression dictated by: Brian Castro Jr., D.O. 04/15/2025 10:07 AM Dictation Location: [id number] Electronically authenticated by: [id number] Y Date: 04/15/2025 10:07 Foot X-Ray 04/15/25 09:25 IMPRESSION: SOFT TISSUE SWELLING INVOLVING THE RIGHT ANKLE WITH TALUS PROSTHESIS IS IN PLACE. NO ACUTE BONY PROCESS INVOLVING THE RIGHT ANKLE OR FOOT. Impression dictated by: Brian Castro Jr., D.O. 04/15/2025 10:07 AM Dictation Location: [id number] Electronically authenticated by: [id number] Y Date: 04/15/2025 10:07 Discharge Plan Discharge Chief Complaint: Extremity Problem, Nontraumatic Clinical Impression: Foot pain, right Patient Disposition: Home, Self-Care Time of Disposition Decision: 10:35 Condition: Good Mode of Transportation: Private Vehicle Prescriptions / Home Meds: New hydrocodone-acetaminophen 5-325 mg tablet 1 tab PO Q6H PRN (Reason: pain) 5 Days Qty: 20 0RF amoxicillin-pot clavulanate 875-125 mg tablet 1 tab PO BID Qty: 14 0RF No Action allopurinol 100 mg tablet 100 mg PO DAILY lisinopril-hydrochlorothiazide 20-25 mg tablet 1 tab PO DAILY metoprolol succinate 50 mg tablet extended release 24 hr 50 mg PO DAILY pitavastatin calcium 4 mg tablet 4 mg PO DAILY cholecalciferol (vitamin D3) 125 mcg (5,000 unit) capsule 125 mcg PO DAILY 90 Days Qty: 90 0RF meloxicam 15 mg tablet 15 mg PO DAILY magnesium 200 mg tablet 200 mg PO DAILY glucosamine sulfate [Glucosamine] 500 mg tablet 250 mg PO BID Rx Instructions: administer with a meal acetaminophen [Acetaminophen Extra Strength] 500 mg tablet 1,000 mg PO .q12 hydrocodone-acetaminophen 5-325 mg tablet 1 tab PO Q6H PRN (Reason: pain) 7 Days Qty: 28 0RF Print Language: [place] Instructions: Arthralgia (ED) Referrals: DOROTHY PERLA [Primary Care Provider, Family Practice] - 1 week
[2025-04-15] MEDS: KETOROLAC TROMETHAMINE 60 MG/2 ML VIAL IM (09:40)
[2025-04-15 09:49] LABS: Hematocrit 44.9 % (42.0-54.0); Hemoglobin 14.7 g/dL (14.0-18.0); Mean Corpuscular HGB Conc 32.7 g/dL (29.9-35.2); Mean Corpuscular Hemoglobin 29.7 pg (25.9-34.0); Mean Corpuscular Volume 90.7 fL (80.0-94.0); Platelet Count 248 10^3/uL (150-450); Red Blood Count 4.95 10^6/uL (4.70-6.10); White Blood Count 15.7 10^3/uL (4.0-11.0)
[2025-04-15 09:57] LABS: Anion Gap 11.2; Blood Urea Nitrogen 44.0 mg/dL (7.0-18.0); Calcium 9.4 mg/dL (8.5-10.1); Carbon Dioxide 30.7 mmol/L (21.0-32.0); Chloride 102 mmol/L (98-107); Estimated GFR (African America >60 (>=60 mL/min/1.73m^2); Estimated GFR (Non-African Ame 56 (>=60 mL/min/1.73m^2); Glucose 95 mg/dL (74-106); Potassium 3.9 mmol/L (3.5-5.1); Sodium 140 mmol/L (136-145)
[2025-04-15 10:11] LABS: Basophils Abs Manual 0.15 10^3/uL (0.00-0.10); Basophils Percent Manual 1.0 % (0.2-2.0); Eosinophils Absolute Manual 0.00 10^3/uL (0.00-0.70); Eosinophils Percent Manual 0.0 % (0.9-7.0); Lymphocytes Absolute Manual 0.94 10^3/uL (1.20-3.80); Lymphocytes Percent Manual 6.0 % (20.5-60.0); Monocytes Absolute Manual 0.94 10^3/uL (0.30-0.80); Monocytes Percent Manual 6.0 % (1.7-12.0); Segmented Neut Absolute Manual 13.65 10^3/uL (1.4-6.5); Segmented Neutrophils % Manual 87.0 (43.0-75.0)
== END 2025-04-15 10:59 | disposition home or self-care (01) ==
PROVIDERS: Emergency Provider Emergency Medicine; PCP Family Medicine
DX: M79.671 Pain in right foot (principal); M25.571 Pain in right ankle and joints of right foot; Z96.661 Presence of right artificial ankle joint
CPT/HCPCS: 36415; 73610; 73630; 80048; 85007; 85027; 96372; 99285; J1885

== ENCOUNTER 2025-04-15 23:11 | Emergency (ER) | payer OTHER, SELFPAY ==
[2025-04-15 23:17] VITALS: BP 147/89; PULSE 78; TEMP 36.9; O2SAT 96; BMI 34.2
--- OUTSIDE RECORDS SUMMARY | 2025-04-15 23:17 | XMS_ITS | CCD ---
Author Organization [facility] Care Team Providers Care Electrical Systems Drafter Name Role Phone DEV PERLA Unavailable Unavailable QUIN ROBISON Unavailable Unavailabl sharath PHYSICIAN, DEFAULT Unavailable Unavailable PHYSICIAN, DEFAULT Unavailable Unavailable DEV PERLA Unavailable Unavailable ROS CM Admitting Unavailable ROS CM Attending Unavailable ROS CM Consulting Unavailable ROS CM Admitting Unavailable ROS CM Attending Unavailable JAIR CARPENTER Admitting Unavailable JAIR CARPENTER Attending Unavailable MISSAEL SCHAEFER Admitting Unavailable MISSAEL SCHAEFER Attending Unavailable DEV PERLA Primary Care Unavailable Dev Perla MD Primary Care Provider [phone] JANINE ISRAEL Attending Unavailable ELI GARCIA Referring Unavailable JANINE ISRAEL Attending Unavailable DUSTIN ZUNIGA Attending Unavailable DUSTIN ZUNIGA Attending Unavailable DUSTIN ZUNIGA Attending Unavailable Dev Perla Primary Care Unavailable Missael Schaefer Admitting Unavailable Missael Schaefer Attending Unavailable Missael Schaefer Attending Unavailable Dev Perla Primary Care Unavailable Missael Schaefer Admitting Unavailable Dev Perla Primary Care Unavailable Daysi Silva PA-C [...] Translations: [Keflex] Drug Allergy 09-20-2009 [facility] Repository (18 sources) Cephalexin Drug Allergy [facility] Medications Current Medications Medication Drug Class(es) Dates Sig (Normalized) Sig (Original) acetaminophen 325 mg / HYDROcodone bitartrate 5 mg oral tablet (2 sources) Opioid Agonist Start: 07-23-2024 End: 07-26-2024 take 1 tablet by mouth every six hours for pain HYDROcodone-aceta minophen ([place]) 5-325 MG tablet Indications: S/P carpal tunnel release Take 1 tablet by mouth every 6 (six) hours if needed for severe pain for up to 3 days 12 tablet 07/23/2024 07/26/2024 Active Start: 07-07-2024 End: 07-10-2024 take 1 tablet by mouth every six hours for pain HYDROcodone-acetaminophen ([place]) 5-325 MG tablet Indications: Post-operative pain Take [...] Range Facility Consent Formson 10-05-2024 Consent Forms [id number] #[facility] Coding Summaryon 11-10-2024 Coding Summary HTMLBase 64 NgxhawxuKCe8xFe+PGhl YWQ+DT9EFJKnK20roDSz rD1fF6REPUrCQvtiDBGP VMgOWnIpvoKrOL3bxYAp ZXJu IC8+MP2nSQHbRjunlRDx n1T2oEM9Z16kae2lEGos bFJ1HARmPiRcvamde5zn aVn1ILezWozoPgWf YRQxdC01FGQ9jL79Sg04 iCSukTHmt1voaNz1OgBr GENbMCQ6eHviFOqvj8Jr TLEnQ33veEJnw7D1 IGNvbGxhcHNlOyBlbXB0 xY5iECcyfjgvy1jkpszy Pmt4dq89aTOit0L8xIN1 G0DcfxK6SKFnvVRx YtxyuISEoR5qbxtzy1ht nmpqZgSnLSTgSQz7QSu1 ETVlsNkrUuRiWO81NID2 PUTixnWxP2QySAQb qNgvJjW0o9F0Gd7BP2HR FukbH9LQZCSHFFjnyMZ+ UY76kr87D4WrCpopNiq0 FLSdNQX4cST6tP2x LDXqJIzbg9F3qJA4M1Ih goNncc0sj9haCWOrKKja A69ruAKfw7V8WINlxFA7 HTRsfBohKoCpyI01 Oyc+DEIbyZwkg9AdHcfr s4uol0thnKf2SufdKEIk lmDxgDvlIGJ9w9JvDe4v SRJzbTE3nFB1pN1k OfXfQvZ5RZhzK232GuRn hRNnGhadG45uJ0LroYY+ EBTtRpg8AQUllMjgRM8v Z7JjJZYfrfotoIUd yJwuVS8lUJPlakvyNDIx bC7vXKUhH0n6WnRqCuR1 UOsvB9NhSOQiowetFg99 lR9oXkBuOzZ8KBji W7OfhmR6KTRpjXYuPZln LGY2O71aq3T1LCAjRVKi UQQ2oGQ2fE5uhUgxmjei bGVmdDsgdmVydGlj ZMafMRtqZ668JCQteFds PkNvZGluZyBEYXRlOiAg MTEvMTAvMjAyNDwvdGQ+ DZLmTDM9xOrfUDCo kXWaVXcnYy1zxElfnHff CD2kNDStwtwtTGFxnL0k WKLpzIObvVcrKD6eXLFi ldztv905VzCfIJC8 APXgpLJnB9CuvB3nUcRv BFHnKRBmP1TfuBGyYArf C315MVokSoR3CNUhavOd F0VsCIJthAmtHvP6 p5Y4Nv8Vg9HgltqkT3Eb tVYhPgLlJpruDTl1J9Xr PjwvdHI+NE62RWWfDP78 OOm9WGL7nBzbNZcx PCEkJ2MtsV6fOwXnROHe ZGRkOyc+PHRhYmxlIHdp ZHRoPScxMDAlJyBzdHls ME6uEf5jWMVlNYSi mYhasKBnQkYoi6zhFBIv AXlsHC9ibZupK3CdhGY9 ZBHga5q9Vm57F89vF5Yh dXA+RLMwaRA0qQG1 lY0rSwGiKmI4ZVjkJ836 ZeTxlPNbVsqmt4wmu7ah gLz3OmB6NDZmvgCzlEme GAU1o5GhEd66G03f IHdpZHRoPSIxNSUiIHZh eGfcem8ikD9nDm4+PGNv pHZ6eTL0oP5cNeKyVtR3 CEclA272GhPphWPw Xgnjn0vsn6ptyKf2EpZe SLFmwcZdeZaeCYE0m4Ui Th97A3MnbWllh6LbUku1 nw28dXLlj0V9kXE4 A9ZmFCNgbewljDNnnItv IF8wZMXyxezeVSFdbL9g LOAxZ2m9EgFpYqT9ZUdl J1BgfkV0DYDipHDf CYYkjDMEcQ4jcrync6lj ypciBjThLCRbCPx3FYw3 HJBwuQipAlIbUBD5FwN3 ABF3qSNlpU6ekFpp mhfesY8lYat+MOP4rJXq kRGWNX6nUwgtdKS+PHRk QZW5gMvmWNfqHEZpxH4u MQEkV5s8ZuIhHcY2 OKebE4WmibY6PMNptCAg CKHfsLBBsI3egjron8rq wuchCuQtBJBaTFr3DFe6 LWFsaWduOiBsZWZ0 GkF2DJI8sNTemO6upHwq hkqenE1xQsa+QmlydGgg QDS2KOl4F4UdJqf2EAHt rGmcGB9ylTCfOYdp Up3byFzcpKwiHA3sBGCl sicdw617OlIve6dbJVNs fCXrJCwfNXH9M68dm7I5 UYWaQOClITX4bCA8 yH5wvSbrbwncmZJszKgw dzDzcNgjGEbxUMvtT617 FNRbxXnmElLnVOq6Q0Sv Als7QZGbxOkiZC7p vSQxIIbgFy0srYhcrYvo CY8mKWEzukcmn636VaXk s5myZMXdlQVnGApsDXY2 D67wr0S3GLQfUFFu QYN9pXL2wP8ziYrholtx bGVmdDsgdmVydGljYWwt SDspE679ILVmhBueLeNs ePf2H5ZaJwh3ZYBl fJijBY5zjNSzCGgeDq6f zOjkjOecMW0mDLJexkyc c388BoDll6pxIRWipEKs INtpUAU1N29um6B0 KFBiFNRjFVU1gHP0iD3h bGlnbjogbGVmdDsgdmVy bSjhEFufSRzfG654TWTp cDsnPlBhdGllbnQg GYvyNQg9L1DmPbckgCI+ UF39PRIeWG92dRIxyCTx i4wwcSq0ElZtXHRkOKN7 dSzzRHenh1KhRCBu G28tkHYxh2Y2OXOtrMxk mQLqKwUbfNQ1nC6cOYcu rlkux7alaprwLnuwi4gd xl14xL74L15oYHzt ZHRoPSIzMCUiIHZhbGln ve6hpN5cWi5+PGNvbCB3 mZR8yM4kFJRlDvR6LCbl K593OaPryJJmMtxy p7jpr8mmmCz1PjS5YEJx cdIhnUlxYBF0e8BmJq12 R06lCXppVEZuLGPuUFFb GZIyyXwqsu8hgX3u Ii8+QRYxbEY2jRK1bQ4l NmLcVxE0VYtsU529IoQy oUPuQowrH53kY0HfvQK+ AGTxIdb9XPYuhRil KQ5czVIgOPzkUy4gLXV9 MeXcJlVaGCoeK4DrNLCj qyqvlhrooPY8EZCeYTNf dC72Vs3twGpeEZCf zWRSjM4tfejlr3pfbsql WzVdYQSuWVg7WVb2GIFr lCyfRdOuJSK2PpM2PCS1 wDKdyH4ezVamoctg bP6oB1DiPZHxjyhpIe55 dB0sJrTnRqQ7AYqmVhz+ KEUXOZFCB2DrXUoTOzpa ZLnDJA14E5IuOml1 HSWsxUfsFA2orWXkVObd Ik6mjUnppVwlUY2qABFv cpryWPAeoV5lDAJxrMOo gCiuBY2xWXDplmhh t985QdQtRLC6VVZwfQFw K0ZbxT6jJwZqHWTwUZSk W2NdvGItIBajT385VJfi QmV6PZNsneHjD3Jf FYHzxTrjHoU7i4H4Xr9n TJ3mUh0rCKI6DN70EW32 iMMtv1P2jYD7Z3IzRDVt vlswhnxlcLX7NGLq NMXyjW77jPUkOAnoOs2h x9C9t870TNAfIATfpV11 La7vnXuyUCUmhWIQgP1o yjkdw9cnensdPvUr ZGNdIAp7MUb8XSBdlCec HbCkUFD4DjJ2ZOH2nZFh lL6wgKioyhutxK3sCia+ ZDncXKObvqW3Q1Wa Wkx8KLKovWdaRH1ohZHk DKoxRo3dtDdwyAdmUB7i CEBnftqpKTLxhZ9aFEJl tPVjfBmzTP9gEXDq hdlbc289AhEdHUF3UDBr bMMdS9IbeN1aQnVrVISl OQTlR1JriWRkSXpuE010 ASadDkF3UATwfwZq L0BxTUBxyGtyJfD5g2T8 Oj1UKDiJOD54WS20sTVd e8U4zLC1M5QyBBSqsfci wlekhHJ7SPApYSDl lL15aOKgPRjdVk1ar8R1 j719PMKmOVUseQ57Ft9m tSosNDDobNBUyJ1adhmf v6fwhdhrUjHeKONb QPp2EUa5MGTouWqgMkHc OHW5KxR1VWS8nVVxbE1q oUuqoneztA6eQmw+RGF5 EZA5apbfern6K0Ox PjwvdHI+SY69JSZpZF65 pARllQWkw9eujKp3AvUs HJArHEP4dVzlSXpts1Ct ODTdS02auGFhh3C4 IGNvbGxhcHNlOyBlbXB0 aN2aJFlcrpivz3czleir Ojtla8rjxv78gS96T18a IHdpZHRoPSIzMCUi FCDppAlyxq9ziL1rEi7+ BBSotZQ9kCW6nR3jYfNn ObW6RMbcJ676YoRodNSp Qdvqd4odu0scxXj5 IjIwJSIgdmFsaWduPSJ0 b6NlWq71M45rPZzzSMYm CKIhAQXkYVYtiWjlvp5e nB8yTm4+WZ1it1fr tk39bA03lGR+PHRkIHN0 nRjnHDjqPSYrqH1kEOxi TlX5DOKnUkYvhK95eSZa APgyNj9rvIzngHie WN0kTGRnxsngy150EnFv e2knCTOeeXBvVOjwZPU2 X70pr5T4ULFvYJJkLSK4 cTY2wG7pqCsnanuk bGVmdDsgdmVydGljYWwt XRbiP301VNOllVkyBjGe rFPlE3odpyBTZX6hXnqu dGQ+RUDdYRJ2rKjh SDlkWVLwdO8vCZQcX4o3 MuZbTcW1YYbqD1MwveW0 LWRxtYPiNVQhcIOVxL8v ujetb3dlzntyYfXm ZUJoFIz8BRw5WTYkjLzd DhRtHRH8OaT3LXM8hSGr rL5nuXflypzytR8fRee+ RklOOjwvdGQ+PHRk BWY8qRcvZKrdSMZtzD5o DUBoS5g6KlMbNaX2NCpz K0UrgzY7PDOhwTTcOSXp kVJZlD1kmgruq0bn hrsiHeJbUFDgKMc9TFb1 CQIroWviXlVnOJS6TgN0 MRV6kRYajE7oeOutylbn tF9rKzz+TVJOOjwv dGQ+GWTkNWZ5xAiyEIrf QVNzpW5jSNAzE1f9GwIf WdC2MSrgJ0AaaiK6NZUu gUHwKEHztNHDmA3o vxxzr1jvqderVdDoHFDo CMh1VXe5EPJskKypDqLp CVW1IeF5VCQ2rOLzjN8z jQimsznjmJ6gSzd+ HHM5OXC4UI75OV67E5Ns PjwvdGFibGU+PHRhYmxl IHdpZHRoPScxMDAlJyBz nEaxYD4wXm2rSWZu LWN (more content not included)... [facility] Consent Formson 07-25-2024 Consent Forms [id number] [facility] Dis[facility] Instructions [id number]# [facility] 07-24-2024 [place]patient [place] [address] Patient Discharge Instructions Name: SANJEEV BLACKBURN JOSE ARMANDO : 1965 Patient Address: [address] [place] [address] Primary Care Provider: Name: Dev Perla DO After you are discharged if you find you have any questions, please, call [phone] ext [phone] to speak to a nurse. Discharge Diagnosis: Carpal tunnel syndrome, right Prescription Information: If you have been given a prescription for narcotics, seek immediate medical attention if you have any difficulty breathing or any sudden status changes such as confusion and sleepiness. If you or anyone you know is experiencing suicidal thoughts, mental health, alcohol and/or drug addiction problems; contact the [facility], [facility]–1983 12/04 Crisis Hotline -Text 4HXEF ut 101260. If you received any narcotics, sedation, or [...] business decisions or sign any legal documents [facility] would like to thank you for allowing us to assist you with your healthcare needs. The following includes patient education materials and information regarding your injury/illness. SANJEEV BLACKBURN has been given the following list of follow-up instructions, prescriptions, and patient education materials: Follow-up Instructions With: Address: When: Dustin Zuniga [address] [place] [phone] Business (1) 08/03/2024 2:30 PM Medications [...] 3. DO NOT lift heavy objects or publications sales representative forcefully with your hand. 4. Change your [...] or concerns, please call the office at [phone]. 7. Follow up as scheduled. Viruses or Bacteria What?s got you sick? Antibiotics only treat bacterial infections. Viral illnesses cannot be treated with antibiotics. When an antibiotic is not prescribed, ask your healthcare professional for tips on how to relieve symptoms and feel better. Usual Cause Illness Viruses Bacteria Antibiotic Needed (more content not included)... [facility] Intra-Op Record Summary Primary Physician: Janine Israel DO Finalized Date/Time: 07/24/24 13:50:08 Pt. Name: SANJEEV BLACKBURN/Sex: 1965 MALE Med Rec #: [id number] Physician: Janine Israel DO Financial #: [id number] Pt. Type: D Room/Bed: / Admit/Disch: 07/24/24 [...] DO CSFA Role Performed Surgeon - Primary Photo Producer Sandfill Operator Time In 07/24/24 13:26:00 07/24/24 13:22:00 07/24/24 13:22:00 Time Out 07/24/24 13:43:00 07/24/24 13:50:00 07/24/24 13:50:00 Procedure Carpal Tunnel Carpal Tunnel Carpal Tunnel Release(Right) Release(Right) Release(Right) Last Modified By: Marybeth Baker RN, Debra RN Myers, Debra RN 07/24/24 13:48:51 07/24/24 13:48:51 07/24/24 13:48:51 Entry 4 Case Attendee Eunice Grant RN Role Performed Photo Producer Time In 07/24/24 13:22:00 Time Out 07/24/24 [...] Out Time 07/24/24 13:28:00 Participants [facility]ana Balderas [facility] [place] Debra RN Last Modified By: Marybeth [...] Prep Syntegrity P (more content not included)... [facility] Preoperative Record [facility] Pre-Op Record Summary Primary Physician: Janine Israel DO Finalized Date/Time: 07/24/24 14:08:57 Pt. Name: SANJEEV BLACKBURN JOSE ARMANDO LloydB./Sex: 1965 MALE Med Rec #: [id number] Physician: Janine Israel DO Financial #: [id number] Pt. Type: D Room/Bed: / Admit/Disch: 07/24/24 [...] Signed By: Ernesto Parrish RN 07/24/24 14:08 [facility] Patient Handouton 07-24-[address] ISRAEL'S POST OPERATIVE CARPAL TUNNEL INSTRUCTIONS: SURGEON'S WRITTEN INSTRUCTIONS: 1. Keep your hand elevated above your elbow for the first 24 hours after surgery. 2. Wiggle your fingers frequently while awake. 3. DO NOT lift heavy objects or publications sales representative forcefully with your hand. 4. Change your [...] or concerns, please call the office at [phone]. 7. Follow up as scheduled. [facility] Coding Summaryon 07-12-2024 Coding Summary HTMLBase 64 VzewettuXTe9yLh+PGhl YWQ+VI6KNIPgS65csJCo zD5iI6LBXRjBHknsMPQE KYeUDiFzmuGtNN1nkXVf ZXJu IC8+HT2fFKMsFzkszJZb g0O1rOZ5Y00srl1yQAng fZB1DWIzPqNofglsd8py dMz1WVhpXksrNcPb DFKzfZ50JHS1fX63Pc82 iYZsvORej4qgjKs4VcEn WZKdHGZ7aQwvOYvyt8Uq VEQeN84sdZZbk5F7 IGNvbGxhcHNlOyBlbXB0 sK8pOBatpauef1yxerkx Ugc4dy69cYLjn6N0iYY5 H7FjgyJ5OKXygUCt NgrznIFFdK3tdxfqj4ao obbkMvCbSQDsZHk3LIy1 ESHfmJhpDiYwZO59GSO2 SUGbsmKnR0RtOUOj mXpjFmG5e8B1Fy0WM9UO HflzJ0DTYEQIOLfanJG+ XG91ew86K8UaBblqFop5 NSCeYFY4uSE8yA2s GKUvRQgzl2J9vME9S1Rv osFvri7hr0sjHXOhLAfv O63onISjc0C3EZTnsEM2 TMRxdFuzZrIrwT99 Oyc+PHOwdXrfb3TwFdcs e4ocx0visAo1KwerQSFi bxMbfYdpWHG8x2KnLa5d TWSefBQ7mON2zQ6s DsKkFmA7KQerD988NzQd wCKrIvunL70kU6ChrEZ+ BSEkWfj4OCZbqCjqLN8o Q4HbPGHgcqbglBIh nGqqOY1nDKNbvgnqRRVm yK8tITZtL5s5BnKlMbR4 NAmsP9WgMRAwttneNu56 nD6dZcDaUmX6MEjr Z1MqgvO0HOPsxQEdXMfs CYH1Q52sq0U0IRKlQZEq HIG2eRQ9pW2olJzwvaqt bGVmdDsgdmVydGlj ETceZIguA514PGCamUar PkNvZGluZyBEYXRlOiAg MTAvMjMvMjAyNDwvdGQ+ YMUtCQF3zYzmBDOp hSPdLWgiXm3lkNvluTvn KG6kJHAhtgnmMISjrS8e HOEfvLZtsBcmDL9nNQNu gunkx464IlPrRSB6 LWFtrKAwU5MxvL3gYcOx ADJqERJoC3NcsPYhZYhv P700PHacAhP3BQJonvBn H4BaTQAjnEfrAeT5 v0O6Qj0Ym3LvehypP8Yb qYZoVbOhZkbmFZq6C9Qn PjwvdHI+TQ13SGDjFD62 IUs8TUG6vTkmSCdd MBKeK8AjgD7gRqReTSLm ZGRkOyc+PHRhYmxlIHdp ZHRoPScxMDAlJyBzdHls NA6rQu4vTJIjYTDn jHfddNRdHwNmj5bqCXEw FRblSE6weQhzB0VxsHY5 OFBqa9a7Ms12P48uQ8Lp dXA+VLUrwUW3nBH3 lN5qWkGfMwU4BYuqI776 NyUrhCEtNvajj7qqp0io xGn9QdM8OHVnlqYvhSfp WOU0k0MzTc10A17a IHdpZHRoPSIxNSUiIHZh sUlmnb5sxV5nOc8+PGNv bRY3nLZ6dO1fDtUbUnG7 LKrvR744NxCvbEAi Ownlm9oha9jmkCx9JmDc YBRykdStlYnjHDM0c9Sl Dz78W7AzbBvpf4JbOqe2 uj50bGEhb1I7zGU5 D9XhOTVhhymbfYCdjAsz OM6vHPGrieazUJOucC5b DFBxC2j8XfTkTkM3LGtl R6GasjV2AVJxdJRd SAWxsXNLqW3lnkyen4jk fvuaSwPlXUTwYVy6BNv7 JNTqkClpIeReFJJ9IeD6 VJN1wTDxrJ7lsGoz lmdecW8iLef+ISW1aEIb mHAYPD0lIlotrJS+PHRk UVX0cDzbGBgdSUApnN4d YKWzN4y9FeIkRlG6 MVfnL4NqmxP2XZQqiBVs ATUdlZYZlG8tfrqru9de kmpbTlRuRJNuKXg5TUx8 LWFsaWduOiBsZWZ0 ZrK0BKG3lUMpjK1qtBfn upoxpK1zQsi+QmlydGgg UZD0PTr8Q8BeFbj2DOHu lBlsUA2opEBzOSab Gf8hxMqomBiaJF4cUEPr ccyap224BuSyt2ngARWg vNJdVOktHRN3M28kd9G1 UDZeDPSuZZT9yOT9 aS0acEtzlpaqbPMjzIum qoJlxMhvTRnjVNhnM238 JFAlmFkwDfVyBNr1W4Br Foa3SMSrtAljRT7h hMBuPErdAu1emJbhcDhz LP9nYUQespain186PsRd y1lkOKUldKBxBPkyZKI2 L18um0R2KKFsQIEc GIW0wAO3aQ4jdPsbswph bGVmdDsgdmVydGljYWwt OPkaO060HDFoxPhgZgGx wXi0Z0WfIeg6EQGf zEjwOS1rhJPdLLgbEm9q uIfemJunXE2jHJCykrix b586KyIsh3moEVDlvUHd WJsvIES2U87aq0Y9 OTFoARDjECI3yJY1wB0h bGlnbjogbGVmdDsgdmVy rEksADofZQriH451UYGq cDsnPlBhdGllbnQg ZHjsANr2C7GaTijswWE+ RR73NOPsMS30fVFctOBw g0gvgTr2SlTuDUVlTBV3 eHqmLWxjn7XoJAGq D95ssBRip8C9TFSsjJfu nPCeZbCreRD8bZ6oYWoe khcbe7mmwnseBpcwk3mh ld96kJ10F19vUQbn ZHRoPSIzMCUiIHZhbGln qp6zyU1yCr9+PGNvbCB3 xCY0hU2oNZOyYrS0ATjd P327RiJpmJThAlii r5tsg2ychBs4XeQ0PLZo wnDepMtfACM1w1BcPj28 H85qGGjvOGPrHUKePEKv KPKhrRutav8isF4w Ii8+WUCkmFI3vNS1kN3h RuNiPbD7GDnvU080BsKi pGErQqjvR07wB2SlbAS+ DGXsLje1FVXmyYhd TR0wxPAjGSbqYi2nBPM1 QoOkBsGwMQznS1VwTDYo uaftgzlnnOX2ZZRcEOUm lO41Yr8ghWgwTXUd lWRXcS6mtwrvo9sodqnt WsSfKZMbIUw7HVg1TFRd nBceKwYvUVN6HlQ4ZNG0 zIGewV7lcAvbzdla aT0hC3WdGTNrwiznVf71 fR2wFsPpGcK1QQgwTjg+ XSBBFAYBA1QhDVaZWfjm WJsOBL50C7ImJef7 NYWrqUqfWG1ipOVtRUkx Ob6gtAcosFdyLG6oMKNd cblyCUYgfM7pRQOlyHVs hTrcSM3qIGWofkml q873ZrUbIJC3GRRipEMa G4NsqQ5vNiEoCNYcLBUv V7BarLJiTCgzI242RFwb FfY1OSSxxfUlG4An BGTcuEktDtC1x4D4Nj7u VU5iIb2hOYC6XU38WP25 iSEyk9A9bLJ2E3EmMDPc bejtebchxGI1JJRn AYFdsL11lNPmNXwcDk0f l8H4q650JZSmEDZmpK27 Mi0qjOufOYJvqETXeF4n hjwxw3rlwwsjTgUj LZVgTAj7JYy9OZMtbLcz NnBsGBA8MzQ3LIY9kPUo iW9bfUtnstlvcO7oRmd+ AQgwUCTmvwJ6T5Cs Oqm6UXSjvSdlRI9iiODv NCqnOm2drOrazYvwWX7u UFYqblttNHYueF1xDSDc vXQnrIeoAG9fTJVb vzbsa664EqHhIRP6FOBh yBHrU2CnnF3cRkWuXFUp RWHlL7VgxHUfZKebA609 CPrhBsD4JDLyivLg C8FlYJCrvTtrRmR6f9N4 Ur1XYKkBML56WG42gZIg m8J9mGW6G9BmRJUyblye cojzpQX6LEIjVJFu xF60vIIhGIbbIc7ev4M2 b271JOWaIFLfrG48Gk8j eMlfVGBcgSKEaJ7arvcf u8bucoerStDiLGWk JCi3EFv7VNAfyOliZgBe BOP5YoX2VWN7qCDslF7t wCmdbcdujO3qYlf+RGF5 ETT7iabvdzi0Z2Gk PjwvdHI+FY44SSJjBR98 xKNlvILqt8mftUw9WhCa GXOsOEA5jJgtVRoce2Gb PIAcB40xwYBoa9W4 IGNvbGxhcHNlOyBlbXB0 lG3xMNhbetzgu1qwtxgp Dhvle3grjm00xG91Z28w IHdpZHRoPSIzMCUi XJPcnKgvaq4vdE9mJi7+ HAOdbDC6sLA1qY1yQiSk QeI5NWvwU715TgHeoONs Yudok3xdf6fjrXh2 IjIwJSIgdmFsaWduPSJ0 e7TjFl21W84vUEupIECx FBCtWHTgBRRmfHcxmp1w nT3gGa2+JC3si0lx sh15eZ66kWV+PHRkIHN0 rGgoFRzxNXTuyZ6bVHky IuI6ZJGcPsImgY46bTCz NLfkKd2bnKzjxYga WC9dKLDujzzip139HhAx l3jaHONwpHRgURxgGOU6 V50bo5P4KBMmQMGiFLL2 nSQ6oB2xmKprhpgo bGVmdDsgdmVydGljYWwt TDnfR464NXSdkHmkTtXe dMDsY0cerhRIJW0iEzrk dGQ+XIExYNX6uIpd WTqaIOKzuZ9mFEVoT5a7 OaUkYoR2BRbdU4GwjyL0 CPQvrRAwHJFzrTCXaP5r peagf3zhjragLuSg ROUpCGc6ZLm4KNJxlOrs IgBfZMP3QaS5ATJ4oMRy gI6tdUbjglloaP3iIst+ RklOOjwvdGQ+PHRk JNA2fYovIChbIAIiqI1u AHQlX3z7AnZmEsR1SUij F1YejwH9VOOdyJFeJANo nBKWsC2alsrey8ow lvkvTnOgBWRsACq5ZBi2 QTJhkUcgTnGgSNM0OeO6 WHP3zNYefT1baZscthsk eM2jEpq+TVJOOjwv dGQ+KZSlSIN9vEwaOWbf GDIakE0cOJSpS8f7ZaVc ScL0RUkaK8MwfiB5MDSn sFYvQAIqpZWMgN1p bdpko3vhjudzDeBhWQYq WJf4EAi8RBJryPbdXxSq WQI7YeN5NIA8iAHjfL4k rVrfbqszeK5gJtn+ DQZ7WLM1WY17MW43K5Ex PjwvdGFibGU+PHRhYmxl IHdpZHRoPScxMDAlJyBz yIixBO5qHd3rVVFm LWN (more content not included)... [facility] Billing Authorizationson Billing Authorizations [id number] #1.00[facility] Consent Formson 07-11-2024 Consent Forms [id number]# 1.00[facility] Discharge Instructionson Discharge Instructions [id number]# 1.00[facility] Inpatient Patient Summaryon 07-10-2024 Inpatient Patient Summary [place] [id number] Patient Discharge Instructions Name: SANJEEV BLACKBURN : 1965 Patient Address: [address] [place] [address] Primary Care Provider: Name: Dev Perla DO After you are discharged if you find you have any questions, please, call [phone] ext [phone] to speak to a nurse. Discharge Diagnosis: Carpal tunnel syndrome, left Prescription Information: If you have been given a prescription for narcotics, seek immediate medical attention if you have any difficulty breathing or any sudden status changes such as confusion and sleepiness. If you or anyone you know is experiencing suicidal thoughts, mental health, alcohol and/or drug addiction problems; contact the [facility], [facility]1983 12/04 Crisis Hotline -Text 4HADC to 680200. If you received any narcotics, sedation, or [...] business decisions or sign any legal documents [facility] would like to thank you for allowing us to assist you with your healthcare needs. The following includes patient education materials and information regarding your injury/illness. SANJEEV BLACKBURN has been given the following list of follow-up instructions, prescriptions, and patient education materials: Follow-up Instructions With: Address: When: Janine Israel [address] [place] [id number] Business (1) 07/20/2024 2:45 PM Medications During [...] 3. DO NOT lift heavy objects or publications sales representative forcefully with your hand. 4. Change your [...] or concerns, please call the office at [phone]. 7. Follow up as scheduled. Viruses or Bacteria What?s got you sick? Antibiotics only treat bacterial infections. Viral illnesses cannot be treated with antibiotics. When an antibiotic is not prescribed, ask your healthcare professional for tips on how to relieve symptoms and feel better. Usual Cause Illness Viruses Bacteria Antibiotic Needed C (more content not included)... Normal [facility] MAGR Intraoperative Recordon 07-10-2024 MAGR Intraoperative Record MAGR Intra-Op Record Summary Primary Physician: Janine Israel DO Finalized Date/Time: 07/10/24 13:39:45 Pt. Name: SANJEEV BLACKBURN /Sex: 1965 MALE Med Rec #: [id number] Physician: Janine Israel DO Financial #: [id number] Pt. Type: D Room/Bed: / Admit/Disch: 07/10/24 [...] DO CSFA Role Performed Surgeon - Primary Photo Producer Scrub Personnel Time In 07/10/24 13:03:00 07/10/24 12:58:00 07/10/24 12:58:00 Time Out 07/10/24 13:26:00 07/10/24 13:28:00 07/10/24 13:28:00 Procedure Carpal Tunnel Carpal Tunnel Carpal Tunnel Release(Left) Release(Left) Release(Left) Last Modified By: Eunice Grant RN, Diane RN Kokinda, Diane RN 07/10/24 13:31:50 07/10/24 13:31:50 07/10/24 13:31:50 Entry 4 Case Attendee Geovanna Zaidi CABLE TENDER Role Performed [place] Operator Time In 07/10/24 12:58:00 Time Out 07/10/24 [...] Out Time 07/10/24 13:08:00 Participants Geovanna Zaidi CABLE TENDER, Eunice Grant RN Last Modified By: Eunice [...] Entry 1 (more content not included)... [facility] MAGR Pre-Op Record Summary Primary Physician: Janine Israel DO Finalized Date/Time: 07/10/24 13:43:42 Pt. Name: WALDOTRISHSANJEEV./Sex: 1965 MALE Med Rec #: [id number] Physician: Janine Israel DO Financial #: [id number] Pt. Type: D Room/Bed: / Admit/Disch: 07/10/24 [...] Signed By: Ranjana Adkins RN 07/10/24 13:43 [facility] Patient Handouton 07-10-[address] [facility]S POST OPERATIVE CARPAL TUNNEL INSTRUCTIONS: SURGEON'S WRITTEN INSTRUCTIONS: 1. Keep your hand elevated above your elbow for the first 24 hours after surgery. 2. Wiggle your fingers frequently while awake. 3. DO NOT lift heavy objects or publications sales representative forcefully with your hand. 4. Change your [...] or concerns, please call the office at [phone]. 7. Follow up as scheduled. [facility] CMP Standardon 06-16-2024 eGFR Non AA >60 Invalid Interpretation Code [facility] Comment on above: Performed By: #### 7 [id number], [id number], 7441573, 4383395, 7029343, 1533240, [id number], [id number] ####[facility] (DEFAULT)[address] [place] [address] eGFR AA >60 Invalid Interpretation Code [facility] Comment on above: Performed By: #### 7 [id number], [id number], 0791508, 6173194, 1884999, 1321879, [id number], 7156692 ####[facility] (DEFAULT)[address] [place] [address] Albumin [Mass/Vol] 4.4 g/dL Normal 3.5-5.0 [facility] Comment on above: Performed By: #### 7 996462, [id number], 2522240, 8534466, 1768769, 4143773, [id number], 3379093 ####[facility] (DEFAULT)[address] [place] [address] Albumin/Globulin [Mass ratio] 1.6 {ratio} Normal 1.4-2.6 [facility] Comment on above: Performed By: #### 7 871744, [id number], 8662235, 0834977, 8971789, 3311833, [id number], 5790754 ####[facility] (DEFAULT)[address] [place] [address] Alk Phos 58 IU/L Normal 32-91 [facility] Comment on above: Performed By: #### 7 895454, [id number], 9075685, 5581129, 2637937, 8250812, [id number], 1149792 ####[facility] (DEFAULT)[address] [place] [address] ALT [Catalytic activity/Vol] 40.0 U/L Normal 17.0-63.0 [facility] Comment on above: Performed By: #### 7 839163, [id number], 6473646, 2401879, 2024946, 5052976, [id number], 4098649 ####[facility] (DEFAULT)[address] [place] [address] Anion gap [Moles/Vol] 8.9 mmol/L Normal 5.0-19.0 [facility] Comment on above: Performed By: #### 7 273661, [id number], 7810943, 0568562, 4381863, 0803556, [id number], 3795674 ####[facility] (DEFAULT)[address] [place] [address] 20003 AST [Catalytic activity/Vol] 31 U/L Normal 15-41 [facility] Comment on above: Performed By: #### 7 099981, [id number], 9733697, 4382623, 0386433, 1460967, [id number], 3567364 ####[facility] (DEFAULT)[address] [place] [address] 44703 Bili Total 0.4 mg/dL Normal 0.3-1.2 [facility] Comment on above: Performed By: #### 7 440265, [id number], 3309430, 9296984, 8567162, 0979665, [id number], 1285360 ####[facility] (DEFAULT)[address] [place] [address]6971 Calcium [Mass/Vol] 8.9 mg/dL Normal 8.9-10.3 [facility] Comment on above: Performed By: #### 7 861792, [id number], 2575909, 7044557, 8512737, 1125068, [id number], 4122910 ####[facility] (DEFAULT)[address] [place] [address] 26832 Chloride [Moles/Vol] 103 mmol/L Normal 101-111 [facility] Comment on above: Performed By: #### 7 330524, [id number], 4229939, 7490211, 6218323, 3626767, 1324454900, 8611345 ####[facility] (DEFAULT)[address] [place] [address] 60063 CO2 [Moles/Vol] 28 mmol/L Normal 21-32 [facility] Comment on above: Performed By: #### 7 695000, [id number], 0663079, 5348262, 7555918, 6450679, 3937532753, 2398294 ####[facility] (DEFAULT)[address] [place] [address] 92004 Creatinine [Mass/Vol] 1.11 mg/dL Normal 0.90-1.30 [facility] Comment on above: Performed By: #### 7 397741, [id number], 7151411, 7781855, 1711481, 7018207, 7180977282, 2149626 ####[facility] (DEFAULT)[address] [place] [address] 83653 Globulin (S) [Mass/Vol] 2.6 g/dL Normal 1.5-4.3 [facility] Comment on above: Performed By: #### 7 044926, [id number], 8531606, 4604410, 3267090, 8604476, 3105130253, 9386787 ####[facility] (DEFAULT)[address] [place] [address] 59148 Glucose [Mass/Vol] 89.0 mg/dL Normal 74.0-118.0 [facility] Comment on above: Performed By: #### 7 604500, [id number], 7405408, 7905526, 6321837, 2636224, 9158641744, 7746775 ####[facility] (DEFAULT)[address] [place] [address] 25429 Osmolality 277 mOsm/L Invalid Interpretation Code [facility] Comment on above: Performed By: #### 7 419845, [id number], 4161003, 4125508, 2759953, 4060676, [id number], 7956647 ####[facility] (DEFAULT)[address] [place] [address] 66285 Potassium [Moles/Vol] 3.9 mmol/L Normal 3.6-5.1 [facility] Comment on above: Performed By: #### 7 202257, [id number], 7052900, 7712350, 3708188, 2110199, 7453758096, 2745432 ####[facility] (DEFAULT)[address] [place] [address] 68427 Protein [Mass/Vol] 7.0 g/dL Normal 6.5-8.1 [facility] Comment on above: Performed By: #### 7 523004, [id number], 1014069, 5087685, 5417816, 1388914, 5330814886, 4482926 ####[facility] (DEFAULT)[address] [place] [address] 08628 Sodium [Moles/Vol] 136.0 mmol/L Normal 136.0-144.0 [facility] Comment on above: Performed By: #### 7 310271, [id number], 8120028, 0549640, 6709634, 0483357, 2545782586, 4683251 ####[facility] (DEFAULT)[address] [place] [address] 65933 Urea nitrogen [Mass/Vol] 28 mg/dL High 8-26 [facility] Comment on above: Performed By: #### 7 970909, [id number], 0893241, 0265314, 2504662, 8045616, 7697092481, 7783345 ####[facility] (DEFAULT)[address] [place] [address] Urea nitrogen/Creatinine [Mass ratio] 25.2 mg/mg High 4.6-16.2 [facility] Comment on above: Performed By: #### 7 106700, [id number], 0311962, 3616542, 6165687, 1569481, 7817810013, 3961741 ####[facility] (DEFAULT)[address] [place] [address] 52940 GGTon 06-16-2024 Gamma glutamyl transferase [Catalytic activity/Vol] 42.0 U/L Normal 7.0-50.0 [facility] Comment on above: Performed By: #### 7 303216, [id number], 9867448, 7104328, 1238647, 7270683, 4931948558, 6062224 ####[facility] (DEFAULT)[address] [place] [address] 70934 Iron Levelon 06-16-2024 Iron [Mass/Vol] 56.0 ug/dL Normal 45.0-182.0 [facility] Comment on above: Performed By: #### 7 515383, [id number], 6532592, 4336590, 6153829, 5728589, 5561281056, 8450878 ####[facility] (DEFAULT)[address] [place] [address] 62174 LDHon 06-16-2024 LDH 233.0 IU/L High 98.0-192.0 [facility] Comment on above: Performed By: #### 7 540116, [id number], 2919554, 4007541, 8821519, 4076800, 4902058221, 9043435 ####[facility] (DEFAULT)[address] [place] [address] 69509 Lipid Panel Standardon 06-16 Cholesterol [Mass/Vol] 235.0 mg/dL High 66.0-200.0 [facility] Comment on above: Performed By: #### 7 309132, [id number], 7098468, 2127813, 4280620, 5736256, 7138253978, 9040628 ####[facility] (DEFAULT)[address] [place] [address] 56758 Cholesterol in HDL [Mass/Vol] 41 mg/dL Normal 40-71 [facility] Comment on above: Performed By: #### 7 631457, 5715048373, 5960090, 6653765, 0013523, 1961261, 0522348398, 4941837 ####[facility] (DEFAULT)[address] [place] [address] 29446 Cholesterol in LDL [Mass/Vol] 144 mg/dL High 1-100 [facility] Comment on above: Performed By: #### 7 217654, [id number], 7013623, 6449397, 2040434, 6769715, 3794000949, 8867551 ####[facility] (DEFAULT)[address] [place] [address] 30630 Cholesterol.total/Cho lesterol in HDL [Mass ratio] 5.7 {ratio} High 0.0-4.5 [facility] Comment on above: Performed By: #### 7 105951, [id number], 9323270, 0181031, 4416414, 3092520, 2432597968, 6826477 ####[facility] (DEFAULT)[address] [place] [address] 56551 Triglyceride [Mass/Vol] 249.0 mg/dL High 0.0-150.0 [facility] Comment on above: Performed By: #### 7 421284, [id number], 4046433, 2446222, 9809711, 9550991, 2037350570, 8059188 ####[facility] (DEFAULT)[address] [place] [address] 80827 VLDL. 50 mg/dL High 5-40 [facility] Comment on above: Performed By: #### 7 837078, [id number], 9490843, 0801617, 2078041, 5813798, 4553155747, 5528672 ####[facility] (DEFAULT)[address] [place], [place] [address] PSA Screenon 06-16-2024 PSA Screen 4.27 ng/mL High 0.00-4.00 [facility] Comment on above: Result Comment: [employer] Clinical System (Chemiluminescence) Values obtained with different assay methods or kits cannot be used interchangeably. Results cannot be interpreted as absolute evidence of the presence or absence of malignant disease. Performed By: #### 7 519381, [id number], 6909451, 0319971, 3110254, 0971648, 6486690809, 1492439 #### [facility] (DEFAULT) [address] [place] [address] 31155 Phoson 06-16-2024 Phosphate [Mass/Vol] 2.9 mg/dL Normal 2.5-4.6 [facility] Comment on above: Performed By: #### 7 385970, [id number], 7716992, 6856024, 9725436, 9170879, 8805422241, 8301589 ####[facility] (DEFAULT)[address] [place] [address] 56445 Uric Acidon 06-16-2024 Urate [Mass/Vol] 7.2 mg/dL Normal 4.8-8.7 [facility] Comment on above: Performed By: #### 7 513762, [id number], 2902209, 6315509, 2372672, 3600170, 7071664061, 1713252 ####[facility] (DEFAULT)[address] [place] [address] Coding Summaryon 06-13-2024 Coding Summary HTMLBase 64 SnhtgjguZNx8hKr+PGhl YWQ+HO9GRUVkP03oeEDk nX5yH8MQKHjULonfQYUS LThAAyEvrdZtFN1tcWLo ZXJu IC8+RG0kAXPcAcwdzNLp y4Z6lZP8I26brb0oBGkh gOM4SESlQyKzzkqkg7nz fIt9TAqnAewyHxGa EJZxkX72VPJ6eS92Rr77 kTAywCDmg9stmQt1DlHd KELgIOD4aXyaETbcg6Zr SRZvK59fjIAra4S9 IGNvbGxhcHNlOyBlbXB0 xB4rTOgedyanw9zgvgdo Sde0yp39aTEoh3Y2tNB3 N9ZifuN4AUPqwCHx VxxvfXDHpQ8alqzis2ik prszZfBnBJSeSTy6UZr1 BJYgvGjnKtWbXO83YBZ1 ERMoaiWdI9BjPCJf tLonEyE1g8M1Yk9PM3DL WzvhU3CKNJCXCNawqXH+ UR50ab61X1EmYxuzIxa5 KDUyMNI8rCW5hF3z HLUgDZwub8O8eUH9X2Vn iaBxwj4yp3euEBUyVDwh H70wrAJql5S3KJRmtZQ1 DBKbbXzsVuIsbF48 Oyc+INCegFbbu6NsAexd b3jrp1uxmCn1RlvtZUIu qzHdrSsuVLN8n4SzZh7m KGJazFZ5iOF5nN5v CcVnPeH1OSyeF420VbHo aRSkYzuqC89mS7WugAZ+ ARPoFpk1WZJrfQfsWL9b Z9UaFREcsuqvdEUp vIlxAC6uGHHgffyuNYAu jZ1hTPHaP4v8VuNnJjK2 LXiiZ7GvDJQstujvGo50 eO5tEyHhXrG9IFvx I6BjjwC4AKWgeZMjPEql CHA0F11tp2R7GRBpJLWy HHA3tLL4iQ7jeAhuyetf bGVmdDsgdmVydGlj TXxlMPdoT737COJnjQrz PkNvZGluZyBEYXRlOiAg MDkvMjQvMjAyNDwvdGQ+ QXLiDMH6jObbETMv gGRgKLtsHr6vqBgbrMkh AQ8xCQRylzhcERRwfV5g NAErdAJupXjlJG9fWNAl spraq206KpPlBYM5 UDNpuBFaY1OtzA6hRsGk YUMmCPRqN6XajSQwTDbn L267ZVpcUsX8HPHizgMf R5UpPRXrgVnfWzQ9 v6K5Gx2To4CthdyiJ6Ey hPGqWpKtDvnxRKz8R8Ce PjwvdHI+XH21MBAmRX63 FWa0UCQ8sDsnEXcm EHTsJ4GmjS4zZeByNBUx ZGRkOyc+PHRhYmxlIHdp ZHRoPScxMDAlJyBzdHls FD8mYr9nVRTlWVJk gEgmnBYvUrWrn9njITFm FEjvLA9evNjaW7ZeoGB5 SIOkn8w6Td46I74iT6Nt dXA+HXBktOL9vBO3 jM0hFbDyYtJ2YVuqA328 CnAboAMhJobmu5ggb1an uSi7ShX8WOCrfaUzyMmr PXA7h9FcLx34I76w IHdpZHRoPSIxNSUiIHZh cKhmlz7tbS0nSg3+PGNv eOY4qCI8rY3iEuWtBeY1 ZCjhY381TeImmFGl Oquke8lgu2vigRq0NlLr IKKidmVuoErfTUK7d3Ej Ah30S2ZtjEefn3KlPkl4 xl86qFOlw3H7bQJ1 R3YvWPOllewckDOwtLdq RM5uFSRmiubgUTTlbN0r JPMzP4w0TcCoDvZ3HTfv O3LohgW3GEUczKYr IYYpqJMZdP0nupzzw7pv akocCtWlUJZlNSp0BFb9 XLNrdPevNgTkKXV0EjZ7 SPN8wGWabL9vzOuz aylgfR3uQbb+QZQ1hKAh fNOMMC5cGxjyyWX+PHRk BPX3dEfbBOwqEWSbqW2d SRNuI5z2MlNpCeD8 GZglM1FbatI2FUVyuLBh UBHleMEFeI8hdnuso9nd evilUlZjPFQkUWp4JYg1 LWFsaWduOiBsZWZ0 HnR4FCE7dGWtbZ0psRxv ouplcK7fAgm+QmlydGgg JHJ6SHl3L8KyKmp9EIGz aCbvML5mjBIhKVhf Bk8ycMscxVhhCV6yOBHs xbfkp278CtKda9mcLOJd oYBeKOmjAHZ6B09td1F5 UDSvIKKgILK8oJB0 tG4tsGpxgdblfNBopDig suXsdOksWPehTCpmB341 QBGsrJcyWrXjGZb3B2Kc Gfx4LQKtxUuoZB2j pEBvCMchXl8clWfkrBnl MN2wAOTxcacov715FtMt y1koZLYhdQAgCWwoCQZ1 N27ws5Y5KMVbNOUr FTT0kXG7lW5beAtyuovv bGVmdDsgdmVydGljYWwt JZiqI165VKGjmWtdLiUj xOt5U2IsTwd2EEFu hAdrOY4tnZKqVAnoQg3q pPitkTidGC9qNGOwsdus a408OnSks7bmKLFdhLQh HVopCUU0T00mc9N4 YBBqJGLnHVE8lZM9iB9t bGlnbjogbGVmdDsgdmVy kFlqBGwfFHjkC403UBIo cDsnPlBhdGllbnQg YRioUVg3J9XzSwwawCI+ PF80EKViJO82aVXerDWj k7jpkWq3RlAvPSTjQUG8 vBoiGMrmr1YgNLTj N79veLSjt5A7BZInpOvz lTGoZxEstDA2rX4xXDyl ekjmc2ppmtwkYpata6si rh94lI20L17rFNyo ZHRoPSIzMCUiIHZhbGln yd3enP6nLb0+PGNvbCB3 vCX1sK6gTSCnLbF8MUgt J652GtQmmKImAdkx o4xjq2euhDs0ToX0BUZm xjVbeAukWGI4h0HzRv20 H46mYEeqHLDzKDRlEIUx UPJigEexqz9kjG6o Ii8+RSIwfGA1nHR8yQ3p VbXuCmL0VMidY426KtSu lFByAlyzU30zE0EajWA+ IHUkDyr4WQTlqQci EK3ajRAkEMvrDk9dQBV9 TaIvWlViODzvL3HaWKDx hebdtsciuBW6RPGrTQGy gM07Xi1exOhaABEh mOLOcR4rxncnm7zsvurh MqJfWCJpJSb2LMf4DMKi eAxnZfMaAXT5PyW7OSP3 gWNqgD7plHuojris hW4jU0AoNMFmxbquEe38 kZ3pKfRhTsY4SCdcMrc+ EVEQVEIJJ2AaTZkFDory JDeYMV87K2WgJjh2 FFLjnPdlIC5wqJJfKKid Gl9xcMhilGwnVE6tXUVl okjyPICxlF6lBQGupIHn hAfaEB9wBDPrpisd b297ZpRzKQG2MVBpfQCh K4NzcD3zCfUwTUKrGPHh J7ErpLVwANboU140PMtk WxG6XUQuizSaQ8Dk EXYmxUapRoY5p9C8Rj2g IL2gHh6rEWA7SS83KS39 nBCnx7V9aZX7S2FaYBTx aoidikmrwBV5JIVs RRBkzH29mWTtNNmjBt2w x2T7t880IFVjLHYjtH31 Um9jdNibEPBqgRMOmT9h dmyxq6wlxyfsKlZk SRZmSFg2DUo1CSTdjWyn MiZcGED6DmS1ARQ4hCPo hI6oyDhbyckslO1nPii+ UUorZGCbbzG0D5Kt Nbr9KKJmfUsoTX1uvSOq DBzkVd1iiBuzcCsqJM2e DDPsukqaCPRyhY5xGVMz vFOswNapHO5mSAOw pqrbj387OnBpXFY4SEOx rIIgE2CwkN0zAxMeNBOo MOJpA7VmiUQxUSqdS020 GJtrWiI2HANetaBd E5GjVWEspZpgSyA2x5K6 Zc3OBPsVCE51DV48uCSe k1O6uBH3E4ZiUDLavlhx edmvaMS0FXQyPLXd vK12xSQhHQevVn3ac6J0 o468VMMmWDKuaL85Ys6u eKttDPZmjWZEwZ6mglju r5noeunlQnKkJHNl NSl0SEv9IEJewCphCpOp XVB9EqG2CNP8aZZzgC5f vPigsgwcnC4iOhw+T1A8 X5WiLcnmiGD+PC90 XUCkDV13dAEghPExf5fc lUt2ZpBiSSUvFVU0vAmp BGpxx3OpZHRcH91xxWQl j3O7DCQfxUtwjJGd JvBnmCU3dD6gPWsxoymc i5slhjauYcpwz2kibo68 vW81M10sLIklZYWdMSXr LKOjXPVkyGbsta7b gS6zLy7+TKEgzCH1xWE9 rP0tCkNsNdV2WCbhQ621 PyQbdMOiQppqk9bmj6lg rGy3GnGxBKJbnkPw zJwvSPK6t7QpWt93X95u IHdpZHRoPSIyMCUiIHZh wEcsxv1iyL9qNg2+PC9j u6ngrr20gN31gQH+ KIEsRJI7aEfxWJvjAABb qS8kSUamTfY4DRLjTtYi vU37sXGoKLohFc8zfCcc qThhYS3zMYWbjxoo t869PtBpg1jhSWInaRZj UBroLFZ6A00hk7M1BGZq MOXnCST0bTT6dP5uiFvd bjogbGVmdDsgdmVy fLaySXodIGvfC543HQTs jEzcPgVnlBWzM8rweyVO EI5pRnqpmAS+PHRkIHN0 dUfcZDcgUJBzlA3y VXVqY0i8RwOeUzM4YKnh S2YvdaH0LANslTNyXFLj fZXUzF1ywuunc7pfjhzi HvXgDXQqWFg2LFt5 YOUprAloTgIjPHI9WwF7 MQN4bRWocD0lmBmlrvwx wX8oVzp+RklOOjwvdGQ+ TPEdMBH4lKpeHYak ZQAmvP1oDZPeG4j3NwAe JnK5RUijI1QizmC5XUUy fJQbYZVjhHBKmW2bjzfx i1vrvcccNkSfDIUq PWd4AKe9WTXdvBnqObEm WAE6VfU5PRL1pYOphF0m vAsgvcyqvF0oKpt+TVJO OjwvdGQ+PHRkIHN0 dAcbHHasZSOkoW6qYPUt N3o6HdNwQlJ0ATveA8Zg ftU4DFLcySLyRPBdkVKN oV7xzojfy4emabjm HqKxHXFlUFg6VOs9PRMh gMbjYjHeVJY7IjM5XVG6 zQBfpV3odJvceqdgbJ2s Oyc+RHV4UXA5UL86 JO42S3YaEvuheKPssCX+ PHRhYmxlIHdpZHRoPScx XPNxWtXdzPluGN9cFy9l ZGVyLWNvbGxhcHNl OiB (more content not included)... [facility] CT Abdomen/Pelvis w/o Contra ston 06-01-2024 [...] Bourne MD 06/01/24 4:54 pm Technologist: KARSTEN [facility] Provider Orderson 05-25-2024 Provider Orders [id number] #[email or web address] [facility] Coding Summaryon 04-06-2024 Coding Summary HTMLBase 64 JzotneabFWv0fTc+PGhl YWQ+RD9WPFJyK77wcPNk oK6wR6QKUIeSYjkbJQDJ ZJuFFrWhgyFdDG1reHXz ZXJu IC8+VC9xQRPzBxjbkYQm e6B3mPW3I02xvv2sFSxm qRX5BXFoJmInjluiy3kg mGf5POgsRcutAbTi ZRMeaY03ZAR6yW00Uy88 xTMnoPWbe9mipBi7HwXd WURmXYU4qMrgKGvgq6Bz CSLsR16vxRGkm3I8 IGNvbGxhcHNlOyBlbXB0 hB5kVGnpgrkko1nnperf Gqb0av95oREcq3J9nHA5 A6LemzX1QLHqtLSt UbwouXQFxX4zaabuv4zq uugyRsOtHYFeFVq9PEy2 WHFovKerXkVpVR05XFH0 EJYdznQfU9RvRRHm hKicAzL2v5D5Wl8FA5NU PtjrJ9PGNUVMKNttlAM+ BG53tp91K8WpFndoThv1 SSUkMND9hOG8zW7m DOSzJKpwt8Q5xVA5G3Yv rbFkvy0om9ncMKRkNDle H67kySTam1O6ICAgcZF9 HEWelTsmVkKhfT54 Oyc+ZOTwqRfvc1DcXwfg a8gmf5aehWl1VnkhNWKc lhWqqFghMCJ3m8LoTi9d NGEinGP4iEM4sR8s BeSrMxT2CHwlP496NiHd eKRtQepaH28jJ7FhsAM+ BQDyUvp2IMYjwKntAW2w A6ZbTQWhwcnjnWFm yMmvII7tZVZpgefeGAPi cP5iAJVxE1g8AzWgQiN4 QBybA6ExIQUrxidzQx39 vW3rVyZlMxP5OUds C7ZwpoV8PJXayVKvCGmt QSR3N98zj7B1KJTjTKLo ZXP7xZY9yN1gbBbflprg bGVmdDsgdmVydGlj ZRgxFHozA166ZFHvfCmh PkNvZGluZyBEYXRlOiAg MDcvMTgvMjAyNDwvdGQ+ NSEcYNF6hQnzOOZq yNKvZMtxNm9mmIiktGvl UH4xELGjzagtHADwjS6g UUAdeNGfzHjgVE6tMOBu okvoc186EbHpSXX7 ZSBmrREuE4MnqU2nGkAm LXIsQDIbG5IodRNiUDal C773BFxiFvP0OSQxazNr I3TbHWUfdHgqEsR8 b5X5Wi4Ke6AurltzD4On nUSxEcTyMvphDWe8L5Ng PjwvdHI+IF47XCKsLD06 EYm0QAJ9qHzcVPta VQScQ7UwxM0pGgOjSOAr ZGRkOyc+PHRhYmxlIHdp ZHRoPScxMDAlJyBzdHls VL1fAm2dWWLbKMSb eRyokFOfIwUhv6msTHSz LRqtZL4bmOdzL3BwkGS4 HZLbt7p5Tx20V11iQ2Vs dXA+HFJyfWR5lTE5 xX4xHaMbLeL5VDpeX393 UeHnqYGlGujbg4fbx1ga bZn8UdY1BZSypzDdjEfm WNJ6f3DmNs81R24u IHdpZHRoPSIxNSUiIHZh oOhieh9gsM7hJf1+PGNv mQH3qYE9iF6kPdEbUeN3 DRgzG290XzSxxXKb Haewy8tku3vscGk8EjMp WNZmhyWgeCigSSL6c4Ez Cz21R2DzoYgdo6YwXyz3 pe96fFHep1U4fAS7 T7HmCJNdpjptmVFlzLhb AB2lBKYrirxsPEMypL1m AAWwD5e7YeHzOwX0XNyj P8XbnnG3UMYgoOHx WGIlrRBGgQ1cduaec9ei mvxhDuQvSCAuGZw1NZg6 FTBvtVdjCeOjLYT5FiQ3 DJT4kDBvwS9awCqf xwpfiQ9nCxd+RBN1kFMw bAMZHO0pFusavRY+PHRk QPA8qAhrBNllKVRnaE7s ZIYkQ8p1AgUvUlY0 WXtyZ5VijxX3WHGxpYMn MEUpjXIVvW9qmewmh5xr rsugBlTeFMXeHRu4PUe0 LWFsaWduOiBsZWZ0 CtG8SJO8uKPvoP5laYiw kdfukG7eJmh+QmlydGgg TRP0XRg5R1IuZlt7HPBs lQtiQR2pwHYbGAwb Vn4lbEujvBdwYF9dEXIh yqhmz659ZeLzw8zcPQVe qIFmXUcmXYG7I96br2D5 RUYeJTNxEGE5bDH1 gP7fyOokytqydVTxyRye mmZqgRpeQWbcRZlkG500 CRMruZncAxQzYYf3K6Lu Vbn1VSYjxSpiSU6m sFFqUOlnNr7nlDbqnQvx HD7rXRFyitehg618RcQq e0niQIOheQHfKXqqOAY2 I46lh1M8IZIlLROt BFD8hWS8nR4yvZzoxbxh bGVmdDsgdmVydGljYWwt HXjmN827UFRspDkcUkRz qIv9M2HoXcz8AXDr vKakMW7twPInHPgwFd0x cYfcaYafKR6mIQVkdkrg q162YvFjg8loCTQfhPJf SQrxMTU8F72he2S0 YAHdXHTlOUW8jFC6oF1g bGlnbjogbGVmdDsgdmVy zMozKBbxYAfmJ861DLHm cDsnPlBhdGllbnQg HBzzMRa7A6FtItymxGP+ HX30IEKzYD11uEAqzCMh u4cedJw8QqEwFVMbEHB3 qQreWAlpk4ZkQDIt T52jmULzq4X0NKJywQyd hLGjUkBnlDB6dB2xRDvv qidyy3sluebjGfwoh8ld dm03jN26D59pPLuz ZHRoPSIzMCUiIHZhbGln gp2vpI3uCk4+PGNvbCB3 cVC9qU0nDLSuWzM6WWoh Y158WtOjuNNoRqwr n4dku5vmeKe3GfO5SSWy urWuwBedWSS0p5EyQs10 E78aAOobCHPsYRIjCQCo OHLbpYqite7ugD1f Ii8+YEKzxBI7cQD5dK2x LcUdIuF2GRmsM407DwNe cYVxMivgD27fL2IqxZZ+ SFVqOmq0JKWbnRax ZH7tfLMbLQxnCy6fRKL1 UjFgIwEnVCigU9GjZBTn czzswqnmrUU6APHbCLXq qD48Bo7fgWsuWKJe cBPNoX5gxuxiq7skirqu RhJxZHHrTSn7SBt5YDBy qUooAvVwWXR5JzT9QIP3 nXVpyK0dvYbzxlkr tB2hR2SrBGAbjhihVp02 vW4wPsVbAlE2ZPiuTwv+ NSZFIVXVG4WwGQdPSexi MTjVVY81N4WwZld5 CNYexTflCL2dfLGuMQaw Jr9qtIyljOvjCA7qHGQm dgqjOZCsjO4jJQFqgXLz ySmiKV3aNRRsqshx s771EhVhPDY8XPDweKEj K8MguU7aWtCeDGUdPJAd B4HkiIKwCWwwW736NJsj HgE7ZUIzttLhA1Yx FJPrqVxwYdU8t3G3Jv3v KU8vJm4dOML0YU91BD62 eDRyk1Y4oXL8N5GsTLKn ogxydqcgxHC1MPJk TPUjgJ69rQNsZXiqLo5u j7S2k208MSOvOVGvcS38 Hh6daItmWQDvdVUKfJ6p uinzj6hpmanrXdIs CDFwUJa5XYk1DYYfrJqg XqHcQOA7LjQ3MME4jPNo pA7rrTkdpfbfkT4hNwy+ GTAvNZVovqD1B7Ip Fcd7DKBvgIjuEN6zmYXp YXoqZl0phHjpeIiuKF2g GZThciyhQPXsiK5nONZo aRFvhYoiGX8wMSYr jzdpn838IdSpKPC2EBUa mPIyX3ChrT5xZiNmGVAw ZRClD9YgkVHkIChfA204 DDvnVkK7ZCYlesYn P7VxCECojBtcWtR3d2S5 Xk5YHSkXLL14AX44zTWh g4W5vKB0R7NuGWHdomxg wgyveDQ9OPZnBOJk aZ47zXAsCCptXu2ir7N2 r779ORJqAUZvzO81Hq9u cAfoUIHqjPOHfL4rxgxz p6ytdpjxRtLkMUCx XUf5PLv3FLUjdWorHnId QLJ5SoY8GRZ4dBUjrF6x yCbhwvcmxH8dRqm+T1A8 H7GeSgkhkHR+PC90 MUXePQ65yJHciISat4we qDu8GqNoOJVpBZJ9jZjf HPxkd2ReXSNtC15qiBVj q5E6DUPamQphwJPw EgCjdCO5dQ6xUAhqbtxe r0eywijuXuond7npex32 eX63D88eYDosUJDaDSBf QISnAVUbuFgzro3c wC6aIs6+ABRjhBG4oLA2 aZ9vBtSsYkL2JCaqZ834 XaLvaQKeNcbqf9jfb6tr mZm8WcCjHZGnbuBf iGdtFLQ3s8XhSv91Z99a IHdpZHRoPSIyMCUiIHZh qGnjdy6orC5sSf5+PC9j k7slmq07uL30hGD+ TLUyKHW6fGdhBHzvKGRb hH6lAXevYbT2NJYxVwLz tC21xSCnQLgbRg8ghHxg rEckDW6wRSWrqjzl o953SrQbo3qiCNCkcPUm JMmaFUT1T34zl9Q7KZZb IZReSLL5yIT0oD7qzFpr bjogbGVmdDsgdmVy wViuGXgmLMwaW820ALXk nEtiEbIspRDvN2eqahDE DN4nEqiflNQ+PHRkIHN0 bZpdAOyjCHLboI9n YBOfP0b8OqLqUyD1DWbt G4SrkfV0VWWuiYScPTHw oONIhO8pmuqgb2ypijgn DxBcUFFqXZq2BKi7 RSCwfGvtWyPoNZP5CeL1 SPQ4xPXzuW1llCkyqgwk qL4lCnt+RklOOjwvdGQ+ TCFyGYC1hIahEPmq LDMhgM9hCBUhW5a1VcPz MdO3QMnfL2XisdL2TUGz pOAnVPGhxFVNjR2eruge y0fpcsbdGfLuGVSo REi3LVw2AACpmCtzHkNi JQV3WqW4ZYF8rIOijW7y xXxlkqaitS2yZdx+TVJO OjwvdGQ+PHRkIHN0 iAihAFniGEWzyH2eHLZf K6g4UdDsDsV3ASzuI1Pu odT1VMQigVQgKBOyyFNH gM1syvdkk0yisuuf YpKxAGNzYZw3EPc4PLFu fAxzSfUxWAI4ArZ4EVB4 eMYicO5fjVqyimttmB5n Oyc+ODH4ZJJ5GG72 FC96C5SwHejzwQTlpEM+ PHRhYmxlIHdpZHRoPScx SEUiUfVsyZqmRA4xHi4a ZGVyLWNvbGxhcHNl OiB (more content not included)... [facility] Coding Summaryon 03-29-2024 Coding Summary HTMLBase 64 HzgxqhluRZw1mEd+PGhl YWQ+IT9WRPFhJ32ihIFs zG8xC0YXWTrZWkatXIBX CDgIYlUohuTjHY2khORe ZXJu IC8+JB0nGLLjYmayxBRf p3A6tUE5N14mwh9cORkn xCV8JYQpMmFqdhkjq6cb uIf9JVcgTqtnRxSj BALtuA74IOV0tH73My30 fRNpbLXgx1wyfBc7CmGz YNVyLLP1jXjgTUnlq9Zl DDPnQ18bzDZjp0I8 IGNvbGxhcHNlOyBlbXB0 xP5gIUegvkzfu8gsesji Rwz6cp63rHXhs0T1cNK3 O1SfwiS6PIGfmMRu XtzrlHDJbO7gruysk8rw ijccAiRuLKKhAHf2UZw3 ELBsvUnnNyVnLI79PUI6 FJCassQnV6GrNANs vGkaXrW5j6N5Vh2ZA5CX VjlgG2KODOUWCYgutWK+ SA23al74G8VvHvhvGqy7 QCQuCVO0qGW3qN6a SHTwHZcjo5B0aYV7K0Ws trYrbm0nz7cjQXZvEOep X95giNXqn4W3ELWvhAX1 ZXSywKquNnKlrN31 Oyc+SRTsyCiem7UhLbnz b1rio1gcoQn7PttaRHTu qmQgaDygJHR1v1HmDf0d ZIKvxOA9jAB3jZ3u JvFvTuX6ZNnkL674NqQc qBGoQrirN05oK1AtqJA+ DYZoCdh3CVVxxUjuFK2m S2CtELOscygglTQv cHyiOF8xMWBodqeiEQTz lE0dVJYlV8d9KpNcSdA7 NFgbO7SkYFXxujdlYx05 vH8gKfNuEaG5ZBer B5VxmkK2RFUbuQZnGKtj GDK3L60wh4N2THLwYPVc TDD8hXE3dV5hdOwbbjao bGVmdDsgdmVydGlj RNnkFWipQ409WVZsyOka PkNvZGluZyBEYXRlOiAg MDcvMTAvMjAyNDwvdGQ+ SBKpPUC5hGreJCVt vBQkNUzvBp6rqHozlUyc JC2tFVSzuxakBDJkpW0k KEItvUJttMqbIW7zPOBd krzqh984IjUvXXJ3 RVEtbJIxC6HzhH7uQzEt XTZuFFGpV0RyaVPkMUsk T375BRhbEpF2UKWeumMi S0OtHHXzmDogEkH4 g3H4Qz5Xd3NxirwlY1Tc aQMbZsZuYlhpIGo2I7Bq PjwvdHI+ZK45DQXdDN76 YJf9CJU8dYycNItb ULBqW2IzvX7wStMzHLXx ZGRkOyc+PHRhYmxlIHdp ZHRoPScxMDAlJyBzdHls AK4iKq1lDAObUOXv jGnbnOWuNxTbk5afYUKy AZfdEV6ycPryT4TauWW0 NTGfh3o2Oe54O17jX5Vx dXA+SEDhnJG8oDO7 zM2yRiNmKoQ3VVnsN240 OyXitMBiIsyiz9nzh1jo nEk8OmT4CFQslsMsdOci SVR4q2BmUh01Y57y IHdpZHRoPSIxNSUiIHZh zEtfhr7jlP3jSm7+PGNv jJQ6kYF1mJ3kKyDdYxT7 BXgkG252YjCfpLLl Pprfx5qwc5ffiDy6LrEm JXRfkuXijXkuSTN9u9Wo Qy52X6UvqZodk0PiLxd9 kv38mTRiw7B5cSM1 Y5QuQDGuevgtsLZnpCoj JU5zJGEgfyofZCYznN7i HKObF4k0HbWzJhD6EQdy Y9DeqmC3VFExbGHu BHIreTWMeI0owczsl8kc umbqLzRyGBVqUXj5QOs4 JQNgcWdeWaMnUEU6TuH1 OGK3rFNvlB6bpSkj gbeujF5mQom+HPX5nGFx dJHHSJ7gPetueQR+PHRk QTU6pUdeKNulSZTphO5t HZDmE7g9AyZbEcG6 BKgbM0JkqaT5AGPdmEKw ZITxqYQEhP7okmfsc9iy olixLcNsDKNyMMu8OAs8 LWFsaWduOiBsZWZ0 KiT1EGA7jJHdcF1zbStj nwhlwV3sIjm+QmlydGgg ODN1BUw3Z8CnAaf4IBTv wFykJZ4mzSXkKVav Mr1cdTwsmFzjQS0cZGFn vvmfm702RfVcr0gaWCOk wAWcRQitXUK8H83ye0Z9 MQGqIUAiZHY3hFW0 bC2taNlrcyfxlZEorNeq faAbxXofWTnqXDgsV074 LCPjuUrjHkCfAGu1F6Qd Zzv8PIKkdSpiLI6f fVDcLVaxTm8yvAxjeZtc EM2eQKJzuuduk883OzMm e9jvMCRmaXBdNCsiHAN2 C82lp2O3ERTvIVEq BEF2cWH9aS3caKjmvqcz bGVmdDsgdmVydGljYWwt MCtbS930NJZhaIaeCoBf rWm8F2HqLjl9FAUv vCufAT1pvARdQWztPr4c sMusfQmzRL7fXGLqrtdo u795UyRim2vgAOBtdQNp ZGypQZV5B93sv4P2 BHQcXMEeOOO5tHA7yO0s bGlnbjogbGVmdDsgdmVy xAzyDBxeTJwnW614ZKEv cDsnPlBhdGllbnQg IVbuEEr6A5ErHdqkwKN+ DC07WKHjNO11oMKpsRXb t5nndSl2LyZqILWvKZQ8 yAyyLCkax1KaGOCn C26ezMLmg7T9HWMgxNzi xBWnJaHwoOR2vR0iIGrj bzeix2vgqueyZodqm0zl be08vE86D27mZFyz ZHRoPSIzMCUiIHZhbGln qs1vgB6cOc3+PGNvbCB3 gDF3gK0nXBWyWkU2YXph Y049EgPzeYXeCzep s8wea8bydBk0ApD2PVYa axWipLkmOMC8j3JnBq43 B71fWHkxOBXcYLBxRRWy ELBotWmhmj4vlC3s Ii8+BYHheRX2tPT3xH5k UtViVgE8FRfaC327DcZu gUHgSlgyG97sP1VpzMD+ NEQeNxf3NZNdrHfr BT7nbDSxJFwpJc1aNWW2 WiSkDkZaYPtkZ7YgJKNy eielqfbknPU8LZXfBUBu lT34Iw8hzPelAVLb jRTHoL0qaiwbi1ywdndr IiCkBSJaMTe4TJl1NTYo kRxwHnLhJET8TnE7JSM6 aQKwzW4ovSdwvizm xB9nI0ZoMSBfecpfMu00 eT5nTaHaBhY4RRidFdj+ DZNWPQZZE4AoXRqKExga YLdGXW54O9VpTlb0 JKFnuUviVU1woYWqDHcq Vw0ckWlueNwqOK5iXNSr jvzmRBFrhV0wZVDnlOBk zPjtFN5qDKXqymhb w590MtJbYNZ4CBAjyENo V4CpeC9kNvCoGYXeRJAz U3CsqRKyPLadJ029AFpu HlC6WDWqypQiK0Oi BNFerMslQbE0q1C3Wn9m AH6yVt5kQEK1KN10IS83 hLAhr3F8zRU4O1HoUVYy uyueknvgfBG9CTOd YPAnzC39wCScBBanBf6j b0V6d878AQBxULIatU33 Yc2vlEleXYHvgQJQnC4e rzxud7ktbiyzIvPk BGDgSNr0HJu3NMCulZyd XoOmNNC0MrM9MTS9sWHj iW3zqBdkcnqulV1wZuv+ DYVeWCSqujI9Q1Lv Voc6KYZakKmgIC7foECe ZQjzLw7rbKshsXftCR8u XTVnntiqQRGdmH4gHCAy jDEwsVywUC3eOUJv xcdal657GdHlYEZ8MBAi aQYuA5OlaH6aZtBeMWAw QMQsV6JnsJLuQHthQ395 NApaEqH1SPRgdpXx X8XmAIKoxTltOmL2w1G5 Wx7MEBrFET92VI44fOYz a7U6nAJ5U8HdPAZiqknv wkgfyNB7MUZuOJPx kU49tIWyPHvzXp6bn6P2 g657TUGqTRPysG53Kc2a nZndABNylNDRlZ2hjblu o1lschfiOhLmNHKw OJn2JQi4JGHkhPxyGzHr KGF3PzV0SZQ8uIMvpA3k mHwgonqryI5hDlp+RW1l vzggipH2UD23QA68 Y6JbCwrfxMCtkRG+PHRh YmxlIHdpZHRoPScxMDAl KjKonEvjSD1dOs3qHERk LWNvbGxhcHNlOiBj h6unVTGoQWxbMD4bfZlf W6CkpGM8OJLod5c6Pv29 Q12qE8TwqDC+PGNvbCB3 eHE9oB0sRoRtKxJ6 DDnmM098ZrEvjOOxYfxp a5wni9dlkGl8WnOpOFBk fmJsuDusIUW7m8YbQc75 G50vFZkmKWGsLDMm PDFqNHDyvHpphk2yhN0l Ii8+IUXfuGY0xUO3uM7r FuYnZjU7IKcaZ505OhJv mZZrLxzoL06xZ1Ed dXA+SNGgPwt9MJKgpSpk XD2qhJMjLDwbEv4wDFD6 NjXiPeDfCXxwE3VeSJCp qzhpxhsyaTQ5THEp GCEbwB24Fj8rmIbyKv7e XCBiNDS1BQNtmEBuN4Ir sT1qUaHsQJByUILiN9Gz aYOrBUljW296HHrn UyU3BXVntuRbJ3DcAJFi fEelWdB1y6L9Vc9WkBcn yKXdFG4uYyMzZVr0M1Yl Ezn6HNNntUteMA6y eVSkWUssHm9ayUinfKyo MX7pXXEoisnbt875NxIs f4nvXQFgwCQqANufENJ9 X46qh0I5FXLsPBLq LZA9wEE0aM0ztWzphrco bGVmdDsgdmVydGljYWwt LZhqH588TJJfaJvpUqHQ Uri1G4MxEex9BKIz lAqpIR2nvVVaFDozNc4b sPkpyYiwOG6bFRBqkfgp v253XzGcn0lyMCPhaFIe JGsrTWY8F06ho7T0 DJSwARQqNYE3qWU5hN1c bGlnbjogbGVmdDsgdmVy jViqMTiyIAifX308LXRg kXypSe1IAae9T7Tw Jjv6EJImgUleUI9xiQCy JAilMk6lkQmczBeiMF3n HTLociefx997TxXsc1zz IDEwcHQgVGltZXM7 T79rr4Z8VXRoBGKeWXO4 aYV2sH3vxNfueovypIIr dDsgdmVydGljYWwtYWxp O854BPComBblYdHk eWVyOjwvdGQ+CK00km75 A9JiGwmyOwo4ZBWaTJK0 mNV0qR0aFERjIBaqn5G5 nDR4O8PborEqcc7g b2x (more content not included)... [facility] US Kidney/Bladder Completeon 03-21-2024 US Kidney/Bladder [...] MD 03/25/24 9:19 am Technologist: SHAY BRO [facility] Provider Orderson 03-20-2024 Provider Orders [id number] #1.00OTGTIFF [facility] .Auto Diff 103-19-2024 Auto [place] % 13 % High 10-01 [facility] Comment on above: Performed By: #### 1 [id number] ####[facility] (DEFAULT)[address] [place] [address] Baso Abs# 0.1 x10 Normal 0.0-0.2 [facility] Comment on above: Performed By: #### 1 [id number] ####[facility] (DEFAULT)[address] [place] [id number] Basophils/100 WBC (Bld) 1.4 % Normal 0.2-2.0 [facility] Comment on above: Performed By: #### 1 [id number] ####[facility] (DEFAULT)[address] [place] [id number] Eos Abs# 0.1 x10 Normal 0.0-0.4 [facility] Comment on above: Performed By: #### 1 [id number] ####[facility] (DEFAULT)[address] [place] [address] [id number] Eosinophils/100 WBC (Bld) 1.8 % Normal 0.9-4.0 [facility] Comment on above: Performed By: #### 1 [id number], [id number], [id number], [id number] ####[facility] (DEFAULT)[address] [place] [address] 28380 Lymph Abs# 1.0 x10 Low 1.3-2.9 [facility] Comment on above: Performed By: #### 1 [id number], [id number], 4193585, [id number], [id number] ####[facility] (DEFAULT)[address] [place] [address] 05889 Lymphocytes/100 WBC (Bld) 19 % Normal 14-48 [facility] Comment on above: Performed By: #### 1 [id number], [id number], 0191565, 2659506122, 47469355 ####[facility] (DEFAULT)[address] [place] [address] 97255 [place] Abs# 0.6 x10 Normal 0.0-0.8 [facility] Comment on above: Performed By: #### 1 [id number], [id number], 2727615, 6271464869, 29039726 ####[facility] (DEFAULT)[address] [place] [address] 71526 Neut Abs# 3.3 x10 Normal 1.5-9.2 [facility] Comment on above: Performed By: #### 1 [id number], [id number], 7220621, 8119334657, 08945987 ####[facility] (DEFAULT)[address] [place] [address] Neutrophils/100 WBC (Bld) 65 % Normal 44-88 [facility] Comment on above: Performed By: #### 1 [id number], 4468778487, 4399198, [id number], 69849441 ####[facility] (DEFAULT)[address] [place] [address] 78329 BMP Standardon 03-19-2024 eGFR Non AA 58 mL/min/1.73m2 Invalid Interpretation Code [facility] Comment on above: Performed By: #### 1 [id number], 3527727233, 7184589, 9814776444, 45860579 ####[facility] (DEFAULT)[address] [place] [address] eGFR AA >60 Invalid Interpretation Code [facility] Comment on above: Performed By: #### 1 [id number], [id number], 8352079, 8159860741, 08351511 ####[facility] (DEFAULT)[address] [place] [address] 05114 Anion gap [Moles/Vol] 12.6 mmol/L Normal 5.0-19.0 [facility] Comment on above: Performed By: #### 1 [id number], 3564173516, 2960674, 6059605284, 69870101 ####[facility] (DEFAULT)[address] [place] [address] 11404 Calcium [Mass/Vol] 9.3 mg/dL Normal 8.9-10.3 [facility] Comment on above: Performed By: #### 1 [id number], 2151665120, 4000247, 7654274444, 94399329 ####[facility] (DEFAULT)[address] [place] [address] 68562 Chloride [Moles/Vol] 105 mmol/L Normal 101-111 [facility] Comment on above: Performed By: #### 1 [id number], 5452353131, 8064928, 0129609946, 06239748 ####[facility] (DEFAULT)[address] [place] [address] 08504 CO2 [Moles/Vol] 26 mmol/L Normal 21-32 [facility] Comment on above: Performed By: #### 1 [id number], 5503285901, 8541129, 7560374059, 39057273 ####[facility] (DEFAULT)[address] [place] [address] 33379 Creatinine [Mass/Vol] 1.28 mg/dL Normal 0.90-1.30 [facility] Comment on above: Performed By: #### 1 [id number], 6877192993, 0630932, 1245780405, 81792521 ####[facility] (DEFAULT)[address] [place] [address] 54090 Glucose [Mass/Vol] 104.0 mg/dL Normal 74.0-118.0 [facility] Comment on above: Performed By: #### 1 [id number], 0150670749, 8184425, 7536079777, 24758429 ####[facility] (DEFAULT)[address] [place] [address] 86859 Osmolality 280 mOsm/L Invalid Interpretation Code [facility] Comment on above: Performed By: #### 1 [id number], 8112064943, 9334869, 2648492896, 19747895 ####[facility] (DEFAULT)[address] [place] [address] 41568 Potassium [Moles/Vol] 3.6 mmol/L Normal 3.6-5.1 [facility] Comment on above: Performed By: #### 1 [id number], 3113636696, 1104933, 8545623588, 47225520 ####[facility] (DEFAULT)[address] [place] [address] 63369 Sodium [Moles/Vol] 140.0 mmol/L Normal 136.0-144.0 [facility] Comment on above: Performed By: #### 1 [id number], 9610381014, 7231718, 6801259938, 83831236 ####[facility] (DEFAULT)[address] [place] [address] Urea nitrogen [Mass/Vol] 15 mg/dL Normal 8-26 [facility] Comment on above: Performed By: #### 1 [id number], 9021649071, 6109142, 5768943256, 62303806 ####[facility] (DEFAULT)[address] [place] [address] Urea nitrogen/Creatinine [Mass ratio] 11.7 mg/mg Normal 4.6-16.2 [facility] Comment on above: Performed By: #### 1 [id number], 1230639673, 4586424, 9450911365, 19954702 ####[facility] (DEFAULT)[address] [place] [address] CBC w/ Auto Diffon 4 Erythrocyte distribution width (RBC) [Ratio] 20.1 % High 11.5-15.0 [facility] Comment on above: Performed By: #### 1 [id number], 7638804678, 7100905, 8761144127, 98643055 ####[facility] (DEFAULT)[address] [place] [address] Hematocrit (Bld) [Volume fraction] 34.7 % Low 34.8-51.9 [facility] Comment on above: Performed By: #### 1 [id number], 2035050663, 6874282, 6054711004, 68554131 ####[facility] (DEFAULT)[address] [place] [address] Hemoglobin (Bld) [Mass/Vol] 11.2 g/dL Low 11.8-17.7 [facility] Comment on above: Performed By: #### 1 [id number], 3097173499, 8270049, 8164367465, 69226783 ####[facility] (DEFAULT)[address] [place] [address] Man Diff? Auto Invalid Interpretation Code [facility] Comment on above: Performed By: #### 1 [id number], 9280730517, 9400690, 5698807494, 32429448 ####[facility] (DEFAULT)[address] [place] [address] MCH (RBC) [Entitic mass] 30 pg Normal 24-34 [facility] Comment on above: Performed By: #### 1 [id number], 5519217220, 6450432, 9784862280, 98708742 ####[facility] (DEFAULT)[address] [place] [address] MCHC (RBC) [Mass/Vol] 32 g/dL Normal 26-37 [facility] Comment on above: Performed By: #### 1 [id number], 7527624778, 8601071, 1853124893, 75897239 ####[facility] (DEFAULT)[address] [place] [address] MCV (RBC) [Entitic vol] 93 fL Normal 81-100 [facility] Comment on above: Performed By: #### 1 [id number], 8003293620, 6920649, 7303279374, 73341740 ####[facility] (DEFAULT)[address] [place] [address] Platelet 387 x10 Normal 138-427 [facility] Comment on above: Performed By: #### 1 [id number], 8361326527, 2158939, 2902167531, 22162785 ####[facility] (DEFAULT)[address] [place] [address] Platelet mean volume (Bld) [Entitic vol] 8.2 fL Normal 6.3-10.2 [facility] Comment on above: Performed By: #### 1 [id number], 9748286620, 1569760, 2612040585, 27218478 ####[facility] (DEFAULT)[address] [place] [address] RBC 3.73 x10 Normal 3.70-5.30 [facility] Comment on above: Performed By: #### 1 [id number], 1515850968, 8179471, 2861267850, 45099098 ####[facility] (DEFAULT)[address] [place] [address] WBC 5.1 x10 Normal 3.5-10.5 [facility] Comment on above: Performed By: #### 1 [id number], 1892597698, 0554959, 0213923149, 61827709 ####[facility] (DEFAULT)[address] [place] [address] CT Abdomen/Pelvis w/o Contra ston 03-19-2024 CT [...] MD 03/19/24 8:33 pm Technologist: Wero SHELLEY [facility] ED Clinical Summaryon 2023 ED Clinical Summary [facility] Emergency Department [address] [place] [address] ED Clinical Summary PERSON INFORMATION Name: SANJEEV BLACKBURN Age: 58 Years Sex: MALE : 1965 MRN: Acct#: Visit Reason: Flank pain; LEFT FLANK PAIN Arrival: 03/19/2024 19:34:59 Discharge: 03/19/2024 22:14:00 LOS: 000 02:40 Check In: 03/19/2024 19:34:59 Checkout:03/19/2024 22:14:00 Address: [address] [place] [address] PCP: Dev Perla DO PROVIDER INFORMATION Provider Role Assigned Unassigned Daysi Silva PA-C ED PA 03/19/2024 19:37:54 Leonela Aguilar CONSULTING PRACTICE MANAGER Nurse 03/19/2024 19:40:29 VITALS INFORMATION Vital Sign [...] Home PATIENT EDUCATION INFORMATION Instructions: Kidney Stones, [id number]-[id number] Follow-Up: With: Address: When: Missael Schaefer MD [address] [place] [address] [place] [address] Within 2 to 4 days With: Address: When: eDv Perla DO [address] [place] [address] [place] [address] Within 3 to 5 days DIAGNOSIS: 1:Ureterolithiasis Patient Understands: Yes - Patient/family/careg iver verbalizes understanding of instructions given Comment: [facility] ED Patient Summaryon 024 ED Patient Summary [facility] Emergency Department [address] [place] [address] PATIENT DISCHARGE INSTRUCTIONS Patient Information Name: SANJEEV BLACKBURN Age: 58 Years Date of : 1965 Reason For Visit: Flank pain; LEFT FLANK PAIN Arrival Time: 03/19/2024 19:34:59 Primary Care Physician: Dev Perla DO Attending Physician: Tank Lazcano MD Comment: Visit Diagnosis: Diagnoses This Visit Flank pain ([id number]) Ureterolithiasis (N20.1) The Pharmacy at [facility] is open Wednesday through Wednesday [...] alcohol and/or drug addiction problems; contact the [facility], [facility]–1983 12/04 Crisis Hotline -Text 0GRZG xa [phone]. If you received any narcotics, sedation, or [...] documents With: Address: When: Missael Schaefer MD [address] [place] [address] [place] [address] Within 2 to 4 days With: Address: When: Dev Perla DO [address] [place] [address] [place] [address] Within 3 to 5 days Medication Information: The exam and treatment you received today in the [facility] Emergency Department were for an urgent problem and are not intended as complete care. It is important for you to follow up with a doctor, nurse practitioner, or physician?s cashier assistant for ongoing care. If your symptoms [...] so we can reach you if necessary. [facility] Emergency Department has provided you with a complete list of medications post discharge. Please inform your bullet lubricant mixer/provider of your visit and for further instruction on these medications. Any specific questions regarding your chronic medications and dosages should be discussed with your primary care physician(s) and/or pharmacist. New Medications [address], [address] [place] [address] [id number], [phone] acetaminophen-hydroc odone (acetaminophen-hydro codone 325 mg-5 mg [...] kg Body Ma (more content not included)... [facility] Extra Redon 03-19-2024 Tube Collected Yes Invalid Interpretation Code [facility] Comment on above: Performed By: #### 1 [id number], [id number], 7276955, [id number], [id number] ####[facility] (DEFAULT)[address] [place] [address] UA Jaspd0ar 03-19-2024 UA Bacteria Trace [facility] Comment on above: Order Comment: Urina lysis Microscopic order added on by [employer] Expert Rules system. Performed By: #### 1 [id number], [id number] ####[facility] (DEFAULT)[address] [place] [address] UA RBC 3-5 [facility] Comment on above: Order Comment: Urina lysis Microscopic order added on by [employer] Rules system. Performed By: #### 1 [id number], [id number] ####[facility] (DEFAULT)[address] [place] [address] UA Squam Epi Rare [facility] Comment on above: Order Comment: Urina lysis Microscopic order added on by [employer] Rules system. Performed By: #### 1 [id number], [id number] ####[facility] (DEFAULT)[address] [place] [address] UA WBC 0-2 [facility] Comment on above: Order Comment: Urina lysis Microscopic order added on by [employer] Rules system. Performed By: #### 1 [id number], [id number] ####[facility] (DEFAULT)[address] [place] [address] UA w Culture if Ind Standard on 03-19-2024 Breakpoint UA Normal [facility] Comment on above: Performed By: #### 1 [id number], [id number] ####[facility] (DEFAULT)[address] [place] [address] 43875 Color (U) Yellow Normal [facility] Comment on above: Performed By: #### 1 [id number], [id number] ####[facility] (DEFAULT)[address] [place] [address] Culture? Not Indicated Invalid Interpretation Code [facility] Comment on above: Result Comment: Resu lt created by rule GL_MAGR_ADD_UA_CULT Result created by rule GL_MAGR_ADD_UA_CULT Result created by rule GL_MAGR_ADD_UA_CULT1 Performed By: #### 1 [id number], [id number] ####[facility] (DEFAULT)[address] [place] [address] Glucose (U) [Mass/Vol] Negative [facility] Comment on above: Performed By: #### 1 [id number], [id number] ####[facility] (DEFAULT)[address] [place] [address] Ketones Ql (U) Negative [facility] Comment on above: Performed By: #### 1 [id number], [id number] ####[facility] (DEFAULT)[address] [place] [address] 06828 Micro? Indicated Invalid Interpretation Code [facility] Comment on above: Result Comment: Resu lt created by rule GL_MAGR_ADD_UA_MICRO Performed By: #### 1 [id number], [id number] ####[facility] (DEFAULT)[address] [place] [address] 91558 UA Bilirubin Negative Normal [facility] Comment on above: Performed By: #### 1 [id number], [id number] ####[facility] (DEFAULT)[address] [place] [address] 85957 UA Blood SMALL Abnormal NEGATIVE [facility] Comment on above: Performed By: #### 1 [id number], [id number] ####[facility] (DEFAULT)[address] [place] [address] 50418 UA Clarity CLEAR Normal CLEAR [facility] Comment on above: Performed By: #### 1 [id number], 98956484 ####[facility] (DEFAULT)[address] [place] [address] 51433 UA Leuk Est Negative Normal NEGATIVE [facility] Comment on above: Performed By: #### 1 [id number], [id number] ####[facility] (DEFAULT)[address] [place] [address] 85775 UA Nitrite Negative Normal NEGATIVE [facility] Comment on above: Performed By: #### 1 [id number], 71579566 ####[facility] (DEFAULT)[address] [place] [address] 82968 UA pH 6.0 Normal 5-8 [facility] Comment on above: Performed By: #### 1 [id number], [id number] ####[facility] (DEFAULT)[address] [place] [address] UA Protein Negative Normal NEGATIVE [facility] Comment on above: Performed By: #### 1 [id number], [id number] ####[facility] (DEFAULT)[address] [place] [address] 82283 UA Spec Grav 1.025 Normal 1.001-1.035 [facility] Comment on above: Performed By: #### 1 [id number], [id number] ####[facility] (DEFAULT)[address] [place] [address] 42047 UA Urobilinogen 0.2 mg/dL Normal 0.2-1.0 [facility] Comment on above: Performed By: #### 1 [id number], [id number] ####[facility] (DEFAULT)[address] [place] [address] Urine Source Clean Catch Normal [facility] Comment on above: Performed By: #### 1 [id number], [id number] ####[facility] (DEFAULT)[address] [place] [address] Surgical Pathology Reporton 08-16-2023 Surgical Pathology Report (NOTE) [id number] [facility] ANATOMIC PATHOLOGY [address] [place] [address]. [place], [place] [address] SURGICAL PATHOLOGY CONSULTATION Patient Name: SANJEEV BLACKBURN MR#: [id number] Specimen #[id number] Procedures/Addenda MOLECULAR PATHOLOGY REPORT Date Ordered: 09/16/2023 Status: Signed Out Date Complete: 09/16/2023 By: Obie Marie M.D. Date Reported: 09/16/2023 INTERPRETATION AT THE REQUEST OF DR. 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 THE RESULTS ARE FOLLOWS: GENOMIC RISK IS: LOW RISK OF METASTASIS WITH RT OR RP: 5 YEAR: 0.5% 10 YEAR: 1.1% RISK OF PROSTATE CANCER MORTALITY WITH RT OR RP: 17 YEAR: 1.2% RISK OF ADVERSE PATHOLOGY AT RP: 18.3% PLEASE SEE [employer]' COMPLETE REPORT ([id number]) FOR DETAILS. Case report, all slides and [...] racemase. Controls are adequate. Normal [facility] Vital Signs Date Time Vital Sign Value Performing Clinician Neri mcintosh 06-15-2024 14:59-0400 Body height 180.3 cm [employer] Work Phone: [facility] [employer] 06-15-2024 14:59-0400 Body mass index (BMI) [Ratio] 34.45 kg/m2 [employer] Work Phone: [facility] [employer] 06-15-2024 14:59-0400 Body weight 112.04 kg [employer] Work Phone: [facility] [employer] 05-18-2024 14:31-0400 Body height 180.3 cm [employer] Phone: [facility] [employer] 05-18-2024 14:31-0400 Body mass index (BMI) [Ratio] 34.17 kg/m2 [employer] Work Phone: [facility] [employer] 05-18-2024 14:31-0400 Body weight 111.13 kg [employer] Phone: [facility] Healthcare Encounters Encounter Date Encounter Type Care Provider Facility Start: 08-28-2024 End: 08-28-2024 Postop follow up visit related to original px Dustin Zuniga [employer] Work Phone: [facility] Comment on above: S/P carpal tunnel re lease (Primary Dx); Right wrist pain; Left wrist pain Start: 08-28-2024 End: 08-28-2024 ambulatory DUSTIN ZUNIGA Not Available Start: 08-28-2024 End: 08-28-2024 Bamboo flowsheet Dustin Zuniga [employer] Work Phone: [facility] Start: 08-28-2024 End: 08-28-2024 Bamboo flowsheet Dustin Zuniga [employer] Work Phone: [facility] Start: 08-03-2024 End: 08-03-2024 Postop follow up visit related to original px Dustin T Zuniga [employer] Work Phone: [facility] Comment on above: S/P carpal tunnel re lease (Primary Dx) Start: 08-03-2024 End: 08-03-2024 ambulatory DUSTIN ZUNIGA Not Available Start: 08-03-2024 End: 08-03-2024 Bamboo flowsheet Dustin Zuniga [employer] Work Phone: [facility] Start: 08-03-2024 End: 08-03-2024 Bamboo flowsheet Dustin Zuniga [employer] Work Phone: [facility] Start: 07-31-2024 End: 08-08-2024 Telephone encounter Janine Israel DO Work Phone: [facility] Start: 07-24-2024 End: 07-24-2024 ambulatory [facility] Facility:[facility] Start: 07-21-2024 End: 07-23-2024 Refill Dustin Zuniga [employer] Work Phone: [facility] Comment on above: S/P carpal tunnel re lease (Primary Dx) Start: 07-20-2024 End: 07-20-2024 ambulatory DUSTIN ZUNIGA Not Available Start: 07-20-2024 End: 07-20-2024 Postop follow up visit related to original px Dustin Zuniga [employer] Work Phone: [facility] Comment on above: Right carpal tunnel syndrome (Primary Dx); Right wrist pain; S/P carpal tunnel release Start: 07-20-2024 End: 07-20-2024 Bamboo flowsrocio Zuniga [employer] Work Phone: [facility] Start: 07-20-2024 End: 07-20-2024 Bamboo flowsrocio Zuniga [employer] Work Phone: [facility] Start: 07-10-2024 End: 07-10-2024 ambulatory [facility] Facility:[facility] Start: 07-07-2024 End: 07-07-2024 Refill Dustin Zuniga [employer] Work Phone: [facility] Comment on above: Post-operative pain (Primary Dx) Start: 06-15-2024 End: 06-15-2024 ambulatory JANINE ISRAEL Not Available Start: 06-15-2024 End: 06-15-2024 Office outpatient visit 25 minutes Janine Israel DO Work Phone: [facility] Comment on above: Carpal tunnel syndro me on left (Primary Dx); Left wrist pain Start: 06-15-2024 End: 06-15-2024 Bamboo flowsheet Janine Israel DO Work Phone: [facility] Start: 06-15-2024 End: 06-15-2024 Bamboo flowsheet Janine Israel DO Work Phone: [facility] Start: 06-01-2024 End: 06-01-2024 ambulatory [facility] Facility:[facility] Start: 05-18-2024 End: 05-18-2024 ambulatory AJNINE ISRAEL Not Available Start: 05-18-2024 End: 05-18-2024 Bamboo flowsheet Janine Israel DO Work Phone: [facility] Start: 05-18-2024 End: 05-18-2024 Bamboo flowsheet Janine Israel DO Work Phone: [facility] Start: 05-18-2024 End: 05-18-2024 Office outpatient new 30 minutes Janine Israel DO Work Phone: [facility] Comment on above: Bilateral carpal idalmis lorin syndrome (Primary Dx) Start: 04-26-2024 End: 04-26-2024 ambulatory [facility] Facility:[facility] Start: 03-21-2024 End: 03-21-2024 ambulatory [facility] Facility:[facility] Start: 03-19-2024 End: 03-19-2024 Emergency department patient visit [facility] Facility:[facility] Start: 08-16-2023 End: 08-16-2023 ambulatory [facility] Start: 12-01-2022 ambulatory JAIR CARPENTER Facilit y:H1 Start: 07-16-2022 ambulatory ROS CM Faci lity:H1 Start: 01-28-2022 ambulatory ROS CM Faci lity:H1 Start: 08-28-2017 End: 08-28-2017 Emergency department patient visit DEV PERLA [facility] Start: 03-02-2017 End: 03-03-2017 Ambulatory DEFAULT PHYSICIAN Facility:[facility] Procedures Date Procedure Procedure Detail Performing Clinician History of decompres armand of median nerve S/P carpal tunnel release Dustin Zuniga [employer]IN [employer] Work Phone: History of decompres armand of median nerve S/P carpal tunnel release Dustin Zuniga [employer] Work Phone: History of decompres armand of median nerve S/P carpal tunnel release Dustin Zuniga [employer] Work Phone: History of decompres armand of median nerve S/P carpal tunnel release Dustin Zuniga GRAIN [employer] Work Phone: Plan of Treatment Date Care Activity Detail Author Start: 10-09-2024 End: 10-09-2024 Patient encounter procedure 10/09/2024 3:00 PM EST Office Visit [facility] [address] [place] [address] Dustin Zuniga NP [address] [place] [place], [place] [address] [facility] Start: 08-28-2024 End: 08-28-2024 Patient encounter procedure [facility] Comment on above: Arrived Start: 08-03-2024 End: 08-03-2024 Patient encounter procedure 08/03/2024 2:30 PM EST Office Visit [facility] [address] [place] [address] Dustin Zuniga NP [address] [place] [address] [facility] Start: 07-24-2024 End: 07-24-2024 Patient encounter procedure 07/24/2024 10:30 AM EST Procedure Visit [facility] Janine Israel, DO [address] [place] [address] [facility] Start: 07-20-2024 End: 07-20-2024 Patient encounter procedure 07/20/2024 2:45 PM EDT Office Visit [facility] [address] [place] [id number] Janine Israel, DO [address] [place] [address] [facility] Start: 07-18-2024 End: 07-18-2024 Patient encounter procedure 07/18/2024 2:30 PM EDT Office Visit [facility] [address] [place] [id number] Janine Israel, DO [address] [place] [address] [facility] Start: 07-10-2024 End: 07-10-2024 Patient encounter procedure 07/10/2024 9:30 AM EDT Procedure Visit [facility] Jannie Israel, DO [address] [place] [address] [facility] Start: 05-21-2024 Influenza vaccination Influenza Vacc ine (#1) [facility] Healthcare Start: 1965 [facility] Immunization Date Immunization Notes Care Provider Fa [facility] 06-17-2023 influenza, injectabl e, quadrivalent, preservative free Janine Israel DO Work Phone: [facility] 06-17-2023 influenza virus vacc ine, unspecified formulation Janine Israel DO Work Phone: [facility] 06-23-2022 influenza, injectabl e, quadrivalent, preservative free Janine Israel DO Work Phone: [facility] 07-01-2021 zoster vaccine recombinant Janine Israel DO Work Phone: [facility] 06-04-2021 influenza, injectabl e, quadrivalent, preservative free Janine Israel DO Work Phone: [facility] 02-22-2021 tetanus toxoid, redu patrick diphtheria toxoid, and acellular pertussis vaccine, adsorbed Janine Israel DO Work Phone: [facility] 02-22-2021 zoster vaccine recombinant Janine Israel DO Work Phone: [facility] 06-14-2020 influenza, seasonal, injectable Janine Israel DO Work Phone: [facility] 06-03-2020 influenza, injectabl e, quadrivalent, preservative free Janine Israel DO Work Phone: [facility] 05-18-2019 influenza, injectabl e, quadrivalent, preservative free Janine Israel DO Work Phone: [facility] 06-17-2018 influenza, injectabl e, quadrivalent, preservative free Janine Israel DO Work Phone: [facility] Payers Date Payer Category Payer Private Health Insurance [employer] [id number] 2024 Unknown 2024 Unknown [id number] 2016 Unknown [id number] 1967 Unknown [id number] 2.16.840.1.028811.3.579.2. 593 1967 Unknown [id number] 2.16.840.1.176018.3.579.2. 593 1967 Unknown [id number] 2.16.840.1.088549.3.579.2. 593 1967 Unknown [id number] 2.16.840.1.315002.3.579.2. 177 1967 Unknown [id number] 2.16.840.1.157762.3.579.2. 1259 1967 Unknown [id number] 2.16.840.1.248570.3.579.2. 1259 1967 Unknown [id number] 2.16.840.1.130904.3.579.2. 1259 1967 Unknown [id number] 2.16.840.1.652790.3.579.2. 1259 1967 Unknown [id number] 2.16.840.1.538120.3.579.2. 1259 1967 Unknown [id number] 2.16.840.1.544416.3.579.2. 718 1967 Unknown [id number] 2.16.840.1.851619.3.579.2. 718 1967 Unknown [id number] 2.16.840.1.663354.3.579.2. 718 1967 Unknown [id number] 2.16.840.1.154851.3.579.2. 718 1967 Unknown [id number] 2.16.840.1.784006.3.579.2. 718 1959 Unknown [id number] Social History Date Type Detail Facility Start: 05-17-2024 Tobacco smoking stat [facility] Never smoked tobacco [facility] Start: 05-17-2024 Tobacco use and exposure Smokeless t obacco non-user [facility] Start: 05-18-2024 End: 06-15-2024 Alcoholic beverage intake Current drinker of alcohol (finding) [facility] Start: 05-18-2024 End: 06-15-2024 [facility] Start: 05-18-2024 End: 06-15-2024 Tobacco use panel [facility] Start: 1965 Sex assigned at Male [facility] Start: 2024 Gender identity Identifies as male gender (finding) [facility] Clinical Notes 03-19-2024 to 08-28-2024 Dustin [...] has normal right wrist ROM. Muscle Strength Brusher Hand: 4/5 Other Erythema: absent Scars: present (Well healed) Sensation: normal Pulse: present Comments: Left Hand Exam Tenderness Left hand tenderness location: tenderness over the incision. Range of Motion The patient has normal left wrist ROM. 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 Dustin Zuniga COPPER MINER-ORTHOPEDIC NURSE PRACTITIONER documented in this encounter [facility] 08-09-2024 Note [id number] History of Presen t illness Narrative [...] develop for requiring urgent evaluation. Dustin Zuniga COPPER MINER-ORTHOPEDIC NURSE PRACTITIONER documented in this encounter [facility] 07-31-2024 Telephone encounter Note That is normal. The new skin that is healing underneath will push up and the skin will start to peel off. Try not to pick at it. [facility] Work Phone: 07-31-2024 Miscellaneous Notes That is normal. The new skin that is healing underneath will push up and the skin will start to peel off. Try not to pick at it. Patient called stating that his incision is raising up. Had carpal tunnel surgery on 07/24. Stats its not hot to the touch. documented in this encounter [facility] 07-31-2024 Telephone encounter Note Patient called stating that his incision is raising up. Had carpal tunnel surgery on 07/24. Stats its not hot to the touch. [facility] 07-24-2024 Note [facility] SURGERY Clinical Discharge Summary PERSON INFORMATION Name SANJEEV BLACKBURN Age 59 Years 1965 Sex MALE Language Greek PCP Dev Perla DO Marital Status [facility] Service Ambulatory Surgery Acct# Arrival 07/24/2024 12:51:27 Visit Reason SURGERY - RIGHT CARPAL TUNNEL RELEASE Acuity LOS 056 01:15 Address: [facility] [address] Comment: PROVIDER INFORMATION VITALS INFORMATION Vital Sign [...] Follow up: With: Address: When: Dustin Zuniga [address] [place] [phone] [facility] (1) 08/03/2024 2:30 PM DIAGNOSIS Carpal tunnel syndrome, right Comment: PHYS DOC NOTES [facility] 07-24-2024 Note Procedure: Decompres armand of median nerve right wrist with release of carpal canal Pre Op Diagnosis: Carpal tunnel syndrome right Post Op Diagnosis: Carpal tunnel syndrome right Surgeon: Dr. Rayray Isarel, Anesthesia: Local Indication for Surgery: The patient [...] on: 07/24/2024 13:44 EST] Janine Israel DO [facility] 07-21-2024 Telephone encounter Note Post op pain rx. PDMP reviewed [facility] 07-21-2024 Miscellaneous Notes Post op pain rx. PDMP reviewed documented in this encounter [facility] 07-20-2024 History of Presen t illness [...] Arthritis CTS (carpal tunnel syndrome) 2018 Hypertension ([facility]) Kidney stones Neuroma of foot 2018 ALLERGIES: [...] Comments denies dribbling. Incontinence denies. Musculoskeletal: CommentsSee [facility] for details. Skin: Rash denies. Neurologic: [...] as scribe for Dustin Zuniga CNP/errol Zuniga COPPER MINER-ORTHOPEDIC NURSE PRACTITIONER documented in this encounter [facility] 07-13-2024 Note [id number] 07-10-2024 Note Procedure: Decompres armand [...] on: 07/10/2024 13:28 EDT] Janine Israel DO [facility] 07-10-2024 Note [facility] SURGERY Clinical Discharge Summary PERSON INFORMATION Name SANJEEV BLACKBURN Age 59 Years 1965 Sex MALE Language Greek PCP Dev Perla DO Marital Status Med Service Ambulatory Surgery Acct# Arrival 07/10/2024 11:59:40 Visit Reason SURGERY - LEFT CARPAL TUNNEL RELEASE Acuity LOS 042 00:39 Address: [address] [place] [id number] Comment: PROVIDER INFORMATION VITALS INFORMATION Vital Sign [...] Address: When: Janine Israel [address] [place] [address] Business (1) 07/20/2024 2:45 PM Type Location Start [facility] 07/24/2024 2:00 PM 07/24/2024 2:30 PM Confirmed DIAGNOSIS Carpal tunnel syndrome, left Comment: PHYS DOC NOTES [facility] 07-07-2024 Telephone encounter Note Post op pain rx. PDMP reviewed [facility] 07-07-2024 Miscellaneous Notes Post op pain rx. PDMP reviewed documented in this encounter [facility] 06-15-2024 History of Presen t illness [...] Arthritis CTS (carpal tunnel syndrome) 2018 Hypertension ([facility]) Kidney stones Neuroma of foot 2018 ALLERGIES: [...] Comments denies dribbling. Incontinence denies. Musculoskeletal: CommentsSee [facility] for details. Skin: Rash denies. Neurologic: [...] Israel/errol Israel D.O. documented in this encounter [facility] 05-18-2024 History of Presen t illness [...] Arthritis CTS (carpal tunnel syndrome) 2018 Hypertension ([facility]) Kidney stones Neuroma of foot 2018 ALLERGIES: [...] Israel/errol Israel D.O. documented in this encounter [facility] 03-19-2024 Note Education Materials Urology Kidney [...] these instructions at home: Medicines ? Take agin-zfs-fomqxfn and prescription medicines only as told by [...] Reviewed: 2022 Elsevier Patient Education ? 2022 [employer]. [facility] Evaluation note Diagnosis Post-operative pain- Primary Other [...] section and content) DATE CREATED AUTHOR 03/15/2018 [facility] DATE CREATED AUTHOR AUTHOR'S ORGANIZ ATION 03/16/2018 [facility] DATE CREATED AUTHOR AUTHOR'S ORGANIZ ATION 11/28/2022 [facility] DATE CREATED AUTHOR AUTHOR'S ORGANIZ ATION 09/17/2023 [facility] DATE CREATED AUTHOR AUTHOR'S ORGANIZ ATION 08/31/2024 [facility] EPIC DATE CREATED AUTHOR AUTHOR'S ORGANIZ ATION 01/23/2025 [facility] Care Teams (unrecognized sec tion and content) Electrical Systems Drafter Relationship Specialty Start Date End Date Dev Perla MD [address] [place] [id number] PCP - General Family Medicine 05/17/24 Electrical Systems Drafter Relationship Specialty Start Date End Date Dev Perla MD [address] [place] [phone] PCP - General Family Medicine 05/17/24 Electrical Systems Drafter Relationship Specialty Start Date End Date Dev Perla MD [address] [place] [id number] PCP - General Family Medicine 05/17/24 Electrical Systems Drafter Relationship Specialty Start Date End Date Dev Perla MD [address] [place] [phone] PCP - General Family Medicine 05/17/24 Electrical Systems Drafter Relationship Specialty Start Date End Date Dev Perla MD [address] [place] [id number] PCP - General Family Medicine 05/17/24 Electrical Systems Drafter Relationship Specialty Start Date End Date Dev Perla MD [address] [place] [phone] PCP - General [facility] Medicine 05/17/24 Electrical Systems Drafter Relationship Specialty Start Date End Date Dev Perla MD [address] [place], [place] [phone] [facility] 05/17/24 Electrical Systems Drafter Relationship Specialty Start Date End Date Dev Perla MD [address] [place] [phone] PCP - General [facility] 05/17/24 Electrical Systems Drafter Relationship Specialty Start Date End Date Dev Perla MD [address] [place] [id number] PCP - General Family Medicine 05/17/24 Reason [...] BE BASED ON THE PRIMARY CLINICAL RECORDS. [facility]. provides no warranty or guarantee of the accuracy or completeness of information in this document.
--- OUTSIDE RECORDS SUMMARY | 2025-04-15 23:17 | XMS_ITS | Clinical Summary ---
Author Organization [facility] Address [address] [place] [address] Care Team Providers Care Bun Icer Name Role Phone Dev Ch MD Primary Care Provider [phone] Allergies Active Allergy Reactions Criticality Noted Date [...] Date of :1968 Address: [address] [place] [address] Payer ID:Not on file Type:Not on file Address: [place] [id number] Care Teams Bun Icer Relationship Specialty Start Date End Date Dev Ch MD [address] [place] [address] PCP - General Family Medicine 05/17/24
--- OUTSIDE RECORDS SUMMARY | 2025-04-15 23:17 | XMS_ITS | Clinical Summary ---
Author Organization [facility] Address [address], [address] [place] [address] Care Team Providers Care Manager Epic Name Role Phone Dev Ch DO Primary Care Provider [phone] Allergies Active Allergy Reactions Criticality Noted Date Comments Cephalexin Hives High 08/28/2017 Medications pitavastatin (LIVALO) 4 MG TABS tablet Take 1 tablet by mouth nightly Active allopurinol (ZYLOPRIM) 100 MG tablet Take 1 tablet by mouth daily Active aspirin 81 MG tablet Take 1 tablet by mouth daily Active vitamin D 1000 units CAPS Take 1 capsule by mouth daily Active traMADol (ULTRAM) 50 MG tablet Take 0.5 tablets by mouth every 6 hours as needed for Pain. Active ondansetron (ZOFRAN) 4 MG tablet Take 1 tablet by mouth every 6 hours as needed for Nausea or Vomiting Active METOPROLOL SUCCINATE ER PO Take by mouth daily Active LISINOPRIL PO Take by mouth every evening Active Social History Tobacco Use Types Packs/Day Years Used Date Smoking Tobacco: Never Smokeless Tobacco: Never Tobacco Cessation:Counseling Given: Not Answered Alcohol Use Standard Drinks/Week Comments Yes 2 (1 standard drink = 0.6 oz pur e alcohol) two drinks total/week. Interpersonal Safety Domain Source: IP Abuse Scr eening Answer Date Recorded Read-Only, Retired: Physical Abuse Denies 08/16/2023 Read-Only, Retired: Verbal Abuse Denies 08/16/2023 Read-Only, Retired: Emotional abuse Denies 08/16/2023 Read-Only, Retired: Financial Abuse Denies 08/16/2023 Read-Only, Retired: Sexual abuse Denies 08/16/2023 Sex and Gender Information Value Date Recorded Sex Assigned at Not on file Legal Sex Male 8:36 PM EST Gender Identity Not on file Sexual Orientation Not on file Last Filed Vital Signs Vital Sign Reading Time Taken Comments Blood Pressure 136/86 08/16/2023 6:15 PM EST Pulse 87 08/16/2023 6:15 PM EST Temperature 36 C (96.8 F) 08/16/2023 6:15 PM EST Respiratory Rate 22 08/16/2023 6:15 PM EST Oxygen Saturation 95% 08/16/2023 6:15 PM EST Inhaled Oxygen Concentration - - Weight 111.1 kg (245 lb) 08/16/2023 1:32 PM EST Height 180.3 cm (5' 11 ) 08/16/2023 1:32 PM EST Body Mass Index 34.17 08/16/2023 1:32 PM EST Plan of Treatment Health Maintenance Due Date Last Done Comments DTaP/Tdap/Td vaccine (1 - Tdap) 1986 COVID-19 Vaccine ( - 2023-2 5 season) 2024 Flu vaccine (#1) 04/20/2025 06/04/2021 Polio vaccine Aged Out No longer demetrichar corazon based on patient's age to complete this topic Insurance [employer] Care Teams Manager Epic Relationship Specialty Start Date End Date Dev Ch DO [address] [place] [phone] PCP - General Family Medicine 08/28/17
--- OUTSIDE RECORDS SUMMARY | 2025-04-15 23:17 | XMS_ITS | Clinical Summary ---
Author Organization [employer] Address [id number] [address] [place] [address] Care Team Providers Care Fur Buyer Name Role Phone Unavailable Primary Care Provider [...]
--- NOTE | 2025-04-15 23:29 | ED.EXTPRO1 ---
HPI - Extremity Problem General Chief complaint: Extremity Problem, Nontraumatic Stated complaint: LOWER EXTREMITY PAIN, SECOND VISIT TODAY Time Seen by Provider: 04/15/25 23:21 Source: patient Mode of arrival: Wheelchair Limitations: no limitations History of Present Illness HPI Narrative: past right ankle tarsal replacement. presents with increasing pain of his ankle and erythema of the dorsum of his foot that extends above the ankle. Not able to bear weight. Seen earlier today for same and discharged home on Augmentin. Now returns complaining of increased pain. No fever. Related Data Home Medications �Medication �Instructions �Recorded �Confirmed allopurinol 100 mg tablet 100 mg PO DAILY 08/25/23 04/15/25 lisinopril 20 1 tab PO DAILY 08/25/23 04/15/25 mg-hydrochlorothiazide 25 mg tablet metoprolol succinate 50 mg 50 mg PO DAILY 08/25/23 04/15/25 tablet,extended release 24 hr pitavastatin calcium 4 mg tablet 4 mg PO DAILY 08/25/23 04/15/25 acetaminophen 500 mg tablet 1,000 mg PO .q12 fever or pain 12/16/23 04/15/25 (Acetaminophen Extra Strength) glucosamine sulfate 500 mg tablet 250 mg PO BID 04/15/25 04/15/25 (Glucosamine) magnesium 200 mg tablet 200 mg PO DAILY 04/15/25 04/15/25 meloxicam 15 mg tablet 15 mg PO DAILY 04/15/25 04/15/25 Previous Rx's �Medication �Instructions �Recorded cholecalciferol (vitamin D3) 125 125 mcg PO DAILY 90 days #90 caps 09/10/23 mcg (5,000 unit) capsule hydrocodone 5 mg-acetaminophen 325 1 tab PO Q6H PRN pain 7 days #28 01/11/24 mg tablet tabs amoxicillin 875 mg-potassium 1 tab PO BID #14 tabs 04/15/25 clavulanate 125 mg tablet hydrocodone 5 mg-acetaminophen 325 1 tab PO Q6H PRN pain 5 days #20 04/15/25 mg tablet tabs Allergies Allergy/AdvReac Type Severity Reaction Status Date / Time cephalexin (From Keflex) Allergy Hives Verified 04/15/25 23:20 pregabalin (From Lyrica) Allergy Rash Verified 04/15/25 23:20 Review of Systems ROS Status of ROS 10 or more systems reviewed and unremarkable except as noted in history and below [facility] Medical History (Updated 04/16/25 @ 02:29 by Akhil Tipton MD) Gout �M10.9 - Gout, unspecified (ICD-10) Abscess of ankle �L02.419 - Cutaneous abscess of limb, unspecified (ICD-10) Arthritis of right ankle �M19.071 - Primary osteoarthritis, right ankle and foot (ICD-10) Impingement of right ankle joint �M25.871 - Other specified joint disorders, right ankle and foot (ICD-10) Osteochondritis dissecans �M93.20 - Osteochondritis dissecans of unspecified site (ICD-10) Ankle arthritis �M19.079 - Primary osteoarthritis, unspecified ankle and foot (ICD-10) Migraine �G43.909 - Migraine, unspecified, not intractable, without status migrainosus (ICD-10) Elevated PSA �R97.20 - Elevated prostate specific antigen [PSA] (ICD-10) Kidney stones �N20.0 - Calculus of kidney (ICD-10) High cholesterol �E78.00 - Pure hypercholesterolemia, unspecified (ICD-10) Hypertension �I10 - Essential (primary) hypertension (ICD-10) S/P extracorporeal shock wave therapy �Z98.890 - Other specified postprocedural states (ICD-10) Prostate cancer (08/2023) �C61 - Malignant neoplasm of prostate (ICD-10) Surgical History S/P surgical manipulation of ankle joint �Z98.890 - Other specified postprocedural states (ICD-10) Hx of prostate biopsy (~08/16/23) �Z98.890 - Other specified postprocedural states (ICD-10) History of colonoscopy �Z98.890 - Other specified postprocedural states (ICD-10) History of foot surgery �Z98.890 - Other specified postprocedural states (ICD-10) History of ankle surgery �Z98.890 - Other specified postprocedural states (ICD-10) Family History (Updated 12/16/23 @ 12:05 by Nereida Mederos) Other Family history of hypertension Family history of stroke Social History (Updated 12/16/23 @ 12:07 by Nereida Mederos) Within the past year, how often did you have a drink containing alcohol: 2-3 times a week Within the past year, how many standard drinks containing alcohol did you have on a typical day: 1 or 2 Within the past year, how often did you have six or more drinks on one occasion: never Total score: 0 Score interpretation: A score less than 4 is consistent with normal alcohol consumption. 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 Highest level of school completed/degree received: Professional degree (, [employer]AV[employer], DVM, DDS) Are you now , , , , never or living with a partner: In a typical week, how many times do you talk on the telephone with family, friends, or neighbors: 3 or more times per week How often do you get together with friends or relatives: 3 or more times per week How often do you attend moravian or scientologist services: 4 or more times per year Do you belong to any clubs or organizations such as moravian groups unions, [employer] or athletic groups, or school groups: no Total score: 3 Score interpretation: A score of greater than or equal to 2 indicates the lowest level of social isolation. Little interest or pleasure in doing things: not at all Feeling down, depressed, or hopeless: not at all Feel stressed/tense/nervous/anxious/difficulty sleeping: not at all Do you think of yourself as: straight/heterosexual Gender Identity: male Exam Constitutional Vital Signs, click to edit/add: Last Vital Signs Temp 98.5 F 04/15/25 23:17 Pulse 78 04/15/25 23:17 Resp 18 04/15/25 23:17 BP 147/89 H 04/15/25 23:17 Pulse Ox 96 04/15/25 23:17 O2 Del Method Room Air 04/15/25 23:17 Common normals: no apparent distress, average body habitus, oriented x3, no limitations, healthy appearing, alert and well nourished [facility] Common normals: normocephalic and head/scalp atraumatic Eye Common normals: EOMs intact bilaterally and conjunctivae normal Respiratory Common normals: normal respiratory effort, no retractions, no use of accessory muscles and clear to auscultation bilaterally Cardio Common normals: regular rate, regular rhythm, S1 normal heart sound and S2 normal heart sound GI Common normals: Normal to inspection, nondistended, normoactive bowel sounds present, soft to palpation and non-tender Extremity Other: erythema and swelling dorsum right foot that extends above right ankle. ankle is tender. Neuro Common normals: oriented x3, CN's II-XII intact bilaterally, moves all extremities and no focal motor deficits Psych Appearance: grossly normal Course Vital Signs Vital signs: Vital Signs Temperature 98.5 F 04/15/25 23:17 Pulse Rate 78 04/15/25 23:17 Respiratory Rate 18 04/15/25 23:17 Blood Pressure 147/89 H 04/15/25 23:17 Pulse Oximetry 96 04/15/25 23:17 Oxygen Delivery Method Room Air 04/15/25 23:17 Temperature 98.5 F 04/15/25 23:17 Pulse Rate 78 04/15/25 23:17 Respiratory Rate 18 04/15/25 23:17 Blood Pressure 147/89 H 04/15/25 23:17 Pulse Oximetry 96 04/15/25 23:17 Oxygen Delivery Method Room Air 04/15/25 23:17 MDM - Extremity (Nontraumatic) MDM Narrative Medical decision making narrative: presents with what appears to be cellulitis of his right lower extremity with erythema extending from dorsum of his foot to above his ankle. Not able to bear weight. Seen earlier today for the same and prescribed Augmentin. Now returns because the pain is worse. Did have nausea for which he took zofran. No definite fever. He has a picture on his phone how his foot and leg looked earlier and the redness has definitely decreased. Repeat WBC improved. Patient does have a history of uric acid kidney stones for which he takes allopurinol. No definite history of joint gout attacks. Will treat his pain and also provide solumedrol and antibiotics tonight. He has an appointment tomorrow AM with his material mover who is very familar with him Lab Data Labs: Lab Results 04/15/25 Range/Units 23:54 WBC 11.9 H (4.0-11.0) 10^3/uL RBC 5.00 (4.70-6.10) 10^6/uL Hgb 15.2 (14.0-18.0) g/dL Hct 45.9 (42.0-54.0) % MCV 91.8 (80.0-94.0) fL MCH 30.4 (25.9-34.0) pg MCHC 33.1 (29.9-35.2) g/dL RDW 15.7 H (11.0-15.0) % Plt Count 211 (150-450) 10^3/uL MPV 10.0 (9.5-13.5) fL Neut % (Auto) 79.3 H (43.0-75.0) % Lymph % (Auto) 8.8 L (20.5-60.0) % [place] % (Auto) 9.7 (1.7-12.0) % Eos % (Auto) 0.3 L (0.9-7.0) % Baso % (Auto) 0.4 (0.2-2.0) % Neut # (Auto) 9.4 H (1.4-6.5) 10^3/uL Lymph # (Auto) 1.0 L (1.2-3.8) 10^3/uL [place] # (Auto) 1.2 H (0.3-0.8) 10^3/uL Eos # (Auto) 0.0 (0.0-0.7) 10^3/uL Baso # (Auto) 0.1 (0.0-0.1) 10^3/uL Abs Immat Gran (auto) 0.18 H (0.00-0.03) 10^3/uL Imm/Tot Granulo (auto) 1.5 H (0.0-0.5) % ESR 24 H (<=20) mm/hr Sodium 137 (136-145) mmol/L Potassium 4.6 (3.5-5.1) mmol/L Chloride 99 (98-107) mmol/L Carbon Dioxide 26.9 (21.0-32.0) mmol/L Anion Gap 15.7 BUN 44.0 H (7.0-18.0) mg/dL Creatinine 1.53 H (0.70-1.30) mg/dL Est GFR ( Amer) 57 L (>=60 mL/min/1.73m^2) Est GFR (Non-Af Amer) 47 L (>=60 mL/min/1.73m^2) BUN/Creatinine Ratio 28.8 Glucose 106 (74-106) mg/dL Lactate 0.9 (0.4-2.0) mmol/L Uric Acid 5.2 (3.5-7.2) mg/dL Calcium 9.1 (8.5-10.1) mg/dL C-Reactive Protein 3.16 H (<=0.50) mg/dL Discharge Plan Discharge Chief Complaint: Extremity Problem, Nontraumatic Clinical Impression: Arthralgia of ankle, right, Cellulitis of right ankle Patient Disposition: Home, Self-Care Prescriptions / Home Meds: No Action allopurinol 100 mg tablet 100 mg PO DAILY lisinopril-hydrochlorothiazide 20-25 mg tablet 1 tab PO DAILY metoprolol succinate 50 mg tablet extended release 24 hr 50 mg PO DAILY pitavastatin calcium 4 mg tablet 4 mg PO DAILY cholecalciferol (vitamin D3) 125 mcg (5,000 unit) capsule 125 mcg PO DAILY 90 Days Qty: 90 0RF meloxicam 15 mg tablet 15 mg PO DAILY magnesium 200 mg tablet 200 mg PO DAILY glucosamine sulfate [Glucosamine] 500 mg tablet 250 mg PO BID Rx Instructions: administer with a meal hydrocodone-acetaminophen 5-325 mg tablet 1 tab PO Q6H PRN (Reason: pain) 5 Days Qty: 20 0RF amoxicillin-pot clavulanate 875-125 mg tablet 1 tab PO BID Qty: 14 0RF acetaminophen [Acetaminophen Extra Strength] 500 mg tablet 1,000 mg PO .q12 hydrocodone-acetaminophen 5-325 mg tablet 1 tab PO Q6H PRN (Reason: pain) 7 Days Qty: 28 0RF Print Language: Eritrean Instructions: Cellulitis (ED), Arthralgia (ED) Additional Instructions: follow up with Dr Caldera tomorrow for recheck Referrals: DOROTHY PERLA [Primary Care Provider, Family Practice] - 1 week
[2025-04-15] MEDS: KETOROLAC TROMETHAMINE 30 MG/ML VIAL IVP (23:59)
[2025-04-16 00:03] LABS: Hematocrit 45.9 % (42.0-54.0); Hemoglobin 15.2 g/dL (14.0-18.0); Immature Granulocytes Abs Auto 0.18 10^3/uL (0.00-0.03); Immature Granulocytes Pct Auto 1.5 % (0.0-0.5); Lymphocytes Absolute Auto 1.0 10^3/uL (1.2-3.8); Mean Corpuscular HGB Conc 33.1 g/dL (29.9-35.2); Mean Corpuscular Hemoglobin 30.4 pg (25.9-34.0); Mean Corpuscular Volume 91.8 fL (80.0-94.0); Platelet Count 211 10^3/uL (150-450); Red Blood Count 5.00 10^6/uL (4.70-6.10); White Blood Count 11.9 10^3/uL (4.0-11.0)
[2025-04-16] MEDS: FENTANYL CITRATE/PF 100 MCG/2 ML VIAL 50 MCG IV ×2 (00:10→02:30)
[2025-04-16 00:27] LABS: Lactate/Lactic Acid 0.9 mmol/L (0.4-2.0)
[2025-04-16 00:34] LABS: Anion Gap 15.7; Blood Urea Nitrogen 44.0 mg/dL (7.0-18.0); Calcium 9.1 mg/dL (8.5-10.1); Carbon Dioxide 26.9 mmol/L (21.0-32.0); Chloride 99 mmol/L (98-107); Estimated GFR (African America 57 (>=60 mL/min/1.73m^2); Estimated GFR (Non-African Ame 47 (>=60 mL/min/1.73m^2); Glucose 106 mg/dL (74-106); Potassium 4.6 mmol/L (3.5-5.1); Sodium 137 mmol/L (136-145)
[2025-04-16 00:36] LABS: Uric Acid 5.2 mg/dL (3.5-7.2)
[2025-04-16] MEDS: METHYLPREDNISOLONE SOD SUCC PF 125 MG/2 ML VIAL IVP (00:47)
[2025-04-16] MEDS: AMPICILLIN SODIUM/SULBACTAM NA 3 GM in 0.9 % SODIUM CHLORIDE 100 ML IV (00:47)
[2025-04-16] MEDS: MAGNESIUM SULFATE IN WATER 2 GM/50 ML PREMIX IV (01:56)
[2025-04-16 03:05] VITALS: BP 138/67; O2SAT 97
== END 2025-04-16 03:09 | disposition home or self-care (01) ==
PROVIDERS: Emergency Provider Internal Medicine; PCP Family Medicine
DX: M79.671 Pain in right foot (principal); L53.9 Erythematous condition, unspecified; M25.571 Pain in right ankle and joints of right foot; Z96.661 Presence of right artificial ankle joint
CPT/HCPCS: 36415; 73610; 73630; 80048; 83605; 84550; 85007; 85025; 85027; 85652; 86140; 96365; 96367; 96372; 96375; 96376; 99284; 99285; J0295; J1885; J2919; J3010; J3475

== ENCOUNTER 2025-05-08 18:49 | Emergency (ER) | payer OTHER, SELFPAY ==
[2025-05-08 19:15] VITALS: BP 134/89; PULSE 105; TEMP 37.2; O2SAT 97; BMI 34.2
--- NOTE | 2025-05-08 19:31 | XR_ITS ---
[address] [address] Patient Name: GURVINDER CHAUDHRY MRN: [id number] date: 1965 Sex: M Assigned Patient Location: ER Current Patient Location: ED.MAIN Accession/Order Number: [id number] Exam Date: 05/08/2025 20:46 Report Date: 05/08/2025 20:48 At the request of: KATIE TSANG MD Procedure: XR ankle RT min 3V 3 views right ankle plain film COMPARISON: 04/15/2025 HISTORY: Right ankle pain for one day concern for infection ACUTE FINDINGS: None DEGENERATIVE CHANGE: Similar SOFT TISSUE FINDINGS: Soft tissue swelling. No subcutaneous air. JOINT EFFUSION: None POSTOP CHANGES: Talus prosthesis without complication BONE MINERALIZATION: Adequate XR/XR ankle RT min 3V IMPRESSION: Stable degenerative and postsurgical change. Soft tissue swelling. No subcutaneous air. Impression dictated by: Juvenal Vu M.D. 05/08/2025 8:48 PM Dictation Location: [place] [address] Electronically authenticated by: [id number] Y Date: 05/08/2025 20:48
--- NOTE | 2025-05-08 19:32 | ED.GENADUL1 ---
HPI HPI - General Adult General Chief complaint: Extremity Problem, Nontraumatic Stated complaint: INFECTION IN ANKLE Time Seen by Provider: 05/08/25 19:03 Source: patient Mode of arrival: Wheelchair Limitations: no limitations History of Present Illness HPI narrative: 59-year-old male presents for pain in his right ankle. It is not associate with any trauma. He has a remote history of ankle reconstruction and a history of infections in that joint. He was seen here about 8 days ago and had workup and was placed on Augmentin. 3 days ago he was seen by his store gift wrap associate and was given 2 cortisone injections. Since then his pain is increased and he is worried about an infection. Related Data Home Medications ?Medication ?Instructions ?Recorded ?Confirmed allopurinol 100 mg tablet 100 mg PO DAILY 08/25/23 05/08/25 lisinopril 20 1 tab PO DAILY 08/25/23 05/08/25 mg-hydrochlorothiazide 25 mg tablet metoprolol succinate 50 mg 50 mg PO DAILY 08/25/23 05/08/25 tablet,extended release 24 hr pitavastatin calcium 4 mg tablet 4 mg PO DAILY 08/25/23 05/08/25 acetaminophen 500 mg tablet 1,000 mg PO .q12 fever or pain 12/16/23 05/08/25 (Acetaminophen Extra Strength) glucosamine sulfate 500 mg tablet 250 mg PO BID 04/15/25 05/08/25 (Glucosamine) magnesium 200 mg tablet 200 mg PO DAILY 04/15/25 05/08/25 meloxicam 15 mg tablet 15 mg PO DAILY 04/15/25 05/08/25 aspirin 81 mg tablet,delayed 81 mg PO DAILY 05/08/25 05/08/25 release (Adult Low Dose Aspirin) Previous Rx's ?Medication ?Instructions ?Recorded cholecalciferol (vitamin D3) 125 125 mcg PO DAILY 90 days #90 caps 09/10/23 mcg (5,000 unit) capsule hydrocodone 5 mg-acetaminophen 325 1 tab PO Q6H PRN pain 7 days #28 01/11/24 mg tablet tabs hydrocodone 5 mg-acetaminophen 325 1 tab PO Q6H PRN pain 5 days #20 04/15/25 mg tablet tabs amoxicillin 875 mg-potassium 1 tab PO BID #14 tabs 05/08/25 clavulanate 125 mg tablet ketorolac 10 mg tablet 10 mg PO Q8H PRN pain #14 tabs 05/08/25 Allergies Allergy/AdvReac Type Severity Reaction Status Date / Time cephalexin (From Keflex) Allergy Hives Verified 05/08/25 19:15 pregabalin (From Lyrica) Allergy Rash Verified 05/08/25 19:15 Opioid HPI Opioid Management Most Recent Opioid Data: Last Pain Scale 8 04/16/25, 02:30 Last ORT Total Score 0 12/16/23, 12:15 Last ORT Risk Category Low Risk 12/16/23, 12:15 Review of Systems ROS Narrative A ten point review of systems is negative except as noted above. [facility] Medical History (Updated 05/08/25 @ 21:59 by Ben Medrano MD) Gout ?M10.9 - Gout, unspecified (ICD-10) Abscess of ankle ?L02.419 - Cutaneous abscess of limb, unspecified (ICD-10) Arthritis of right ankle ?M19.071 - Primary osteoarthritis, right ankle and foot (ICD-10) Impingement of right ankle joint ?M25.871 - Other specified joint disorders, right ankle and foot (ICD-10) Osteochondritis dissecans ?M93.20 - Osteochondritis dissecans of unspecified site (ICD-10) Ankle arthritis ?M19.079 - Primary osteoarthritis, unspecified ankle and foot (ICD-10) Migraine ?G43.909 - Migraine, unspecified, not intractable, without status migrainosus (ICD-10) Elevated PSA ?R97.20 - Elevated prostate specific antigen [PSA] (ICD-10) Kidney stones ?N20.0 - Calculus of kidney (ICD-10) High cholesterol ?E78.00 - Pure hypercholesterolemia, unspecified (ICD-10) Hypertension ?I10 - Essential (primary) hypertension (ICD-10) S/P extracorporeal shock wave therapy ?Z98.890 - Other specified postprocedural states (ICD-10) Prostate cancer (08/2023) ?C61 - Malignant neoplasm of prostate (ICD-10) Surgical History S/P surgical manipulation of ankle joint ?Z98.890 - Other specified postprocedural states (ICD-10) Hx of prostate biopsy (~08/16/23) ?Z98.890 - Other specified postprocedural states (ICD-10) History of colonoscopy ?Z98.890 - Other specified postprocedural states (ICD-10) History of foot surgery ?Z98.890 - Other specified postprocedural states (ICD-10) History of ankle surgery ?Z98.890 - Other specified postprocedural states (ICD-10) Family History (Updated 12/16/23 @ 12:05 by Nereida Mederos) Other Family history of hypertension Family history of stroke Social History (Updated 12/16/23 @ 12:07 by Nereida Mederos) Within the past year, how often did you have a drink containing alcohol: 2-3 times a week Within the past year, how many standard drinks containing alcohol did you have on a typical day: 1 or 2 Within the past year, how often did you have six or more drinks on one occasion: never Total score: 0 Score interpretation: A score less than 4 is consistent with normal alcohol consumption. 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 Highest level of school completed/degree received: Professional degree (MD, SHAVON, DVM, DDS) Are you now , , , , never or living with a partner: In a typical week, how many times do you talk on the telephone with family, friends, or neighbors: 3 or more times per week How often do you get together with friends or relatives: 3 or more times per week How often do you attend taoist or sabianism services: 4 or more times per year Do you belong to any clubs or organizations such as taoist groups unions, fraternal or athletic groups, or school groups: no Total score: 3 Score interpretation: A score of greater than or equal to 2 indicates the lowest level of social isolation. Little interest or pleasure in doing things: not at all Feeling down, depressed, or hopeless: not at all Feel stressed/tense/nervous/anxious/difficulty sleeping: not at all Do you think of yourself as: straight/heterosexual Gender Identity: male Exam Narrative Exam Narrative: Nurses note and vital signs reviewed and patient is not hypoxic. General: The patient appears well and in no apparent distress. Patient is resting comfortably on cart. Skin: Warm, dry, no pallor noted. There is no rash noted. Head: Normocephalic, atraumatic Eye: Normal conjunctiva, no drainage Ears, Nose, Mouth, and Throat: oral mucosa is moist. Nares patent. Cardiovascular: Regular Rate and Rhythm Respiratory: Patient is in no distress, no accessory muscle use, lungs are clear to auscultation, no wheezing, rales or rhonchi Back: non-tender GI: Soft and nontender Musculoskeletal: The right ankle is examined. The skin is intact. The skin may be mildly erythematous. He has some tenderness to palpation. Dorsalis pedis pulse 2+. Neurological: A&O, normal speech Psychiatric: Cooperative Constitutional Vital Signs, click to edit/add: Last Vital Signs Temp 98.9 F 05/08/25 19:15 Pulse 105 H 05/08/25 19:15 Resp 19 05/08/25 19:15 BP 134/89 05/08/25 19:15 Pulse Ox 97 05/08/25 19:15 O2 Del Method Room Air 05/08/25 19:15 Course Vital Signs Vital signs: Vital Signs Temperature 98.9 F 05/08/25 19:15 Pulse Rate 105 H 05/08/25 19:15 Respiratory Rate 19 05/08/25 19:15 Blood Pressure 134/89 05/08/25 19:15 Pulse Oximetry 97 05/08/25 19:15 Oxygen Delivery Method Room Air 05/08/25 19:15 Temperature 98.9 F 05/08/25 19:15 Pulse Rate 105 H 05/08/25 19:15 Respiratory Rate 05/08/25 19:15 Blood Pressure 134/89 05/08/25 19:15 Pulse Oximetry 97 05/08/25 19:15 Oxygen Delivery Method Room Air 05/08/25 19:15 Medical Decision Making MDM Narrative Medical decision making narrative: His workup is essentially negative except for some soft tissue swelling on the x-ray. WBC is 8.6 and C-reactive protein is less than 0.5. ESR is 28. He was prescribed Augmentin and at his request Toradol and he will call his store gift wrap associate in the morning. Intent was to speak to his store gift wrap associate tondulce but at the time of this dictation I have not yet received a phone call back. Treatment diagnosis and follow-up were discussed with the patient thoroughly. Differential Diagnosis Differential Diagnosis: Arthritis, cellulitis Lab Data Lab results reviewed: Yes I reviewed the patient's lab results Labs: Lab Results 05/08/25 Range/Units 19:44 WBC 8.6 (4.0-11.0) 10^3/uL RBC 4.53 L (4.70-6.10) 10^6/uL Hgb 14.0 (14.0-18.0) g/dL Hct 40.8 L (42.0-54.0) % MCV 90.1 (80.0-94.0) fL MCH 30.9 (25.9-34.0) pg MCHC 34.3 (29.9-35.2) g/dL RDW 15.1 H (11.0-15.0) % Plt Count 195 (150-450) 10^3/uL MPV 9.2 L (9.5-13.5) fL Neut % (Auto) 75.9 H (43.0-75.0) % Lymph % (Auto) 10.5 L (20.5-60.0) % [place] % (Auto) 9.2 (1.7-12.0) % Eos % (Auto) 3.3 (0.9-7.0) % Baso % (Auto) 0.5 (0.2-2.0) % Neut # (Auto) 6.5 (1.4-6.5) 10^3/uL Lymph # (Auto) 0.9 L (1.2-3.8) 10^3/uL [place] # (Auto) 0.8 (0.3-0.8) 10^3/uL Eos # (Auto) 0.3 (0.0-0.7) 10^3/uL Baso # (Auto) 0.0 (0.0-0.1) 10^3/uL Abs Immat Gran (auto) 0.05 H (0.00-0.03) 10^3/uL Imm/Tot Granulo (auto) 0.6 H (0.0-0.5) % ESR 28 H (<=20) mm/hr Sodium 135 L (136-145) mmol/L Potassium 3.6 (3.5-5.1) mmol/L Chloride 100 (98-107) mmol/L Carbon Dioxide 30.6 (21.0-32.0) mmol/L Anion Gap 8.0 BUN 25.0 H (7.0-18.0) mg/dL Creatinine 1.17 (0.70-1.30) mg/dL Est GFR ( Amer) >60 (>=60 mL/min/1.73m^2) Est GFR (Non-Af Amer) >60 (>=60 mL/min/1.73m^2) BUN/Creatinine Ratio 21.4 Glucose 101 (74-106) mg/dL Calcium 8.9 (8.5-10.1) mg/dL C-Reactive Protein <0.50 (<=0.50) mg/dL Imaging Data Ankle x-ray: Radiologist's impression: ITS Impressions Ankle X-Ray 05/08/25 19:31 IMPRESSION: Stable degenerative and postsurgical change. Soft tissue swelling. No subcutaneous air. Impression dictated by: Juvenal Vu M.D. 05/08/2025 8:48 PM Dictation Location: [facility] Electronically authenticated by: [id number] Y Date: 05/08/2025 20:48 Discharge Plan Discharge Chief Complaint: Extremity Problem, Nontraumatic Clinical Impression: Ankle pain, right Patient Disposition: Home, Self-Care Time of Disposition Decision: 21:58 Condition: Good Mode of Transportation: Private Vehicle Prescriptions / Home Meds: New amoxicillin-pot clavulanate 875-125 mg tablet 1 tab PO BID Qty: 14 0RF ketorolac 10 mg tablet 10 mg PO Q8H PRN (Reason: pain) Qty: 14 0RF No Action allopurinol 100 mg tablet 100 mg PO DAILY lisinopril-hydrochlorothiazide 20-25 mg tablet 1 tab PO DAILY metoprolol succinate 50 mg tablet extended release 24 hr 50 mg PO DAILY pitavastatin calcium 4 mg tablet 4 mg PO DAILY cholecalciferol (vitamin D3) 125 mcg (5,000 unit) capsule 125 mcg PO DAILY 90 Days Qty: 90 0RF meloxicam 15 mg tablet 15 mg PO DAILY magnesium 200 mg tablet 200 mg PO DAILY glucosamine sulfate [Glucosamine] 500 mg tablet 250 mg PO BID Rx Instructions: administer with a meal hydrocodone-acetaminophen 5-325 mg tablet 1 tab PO Q6H PRN (Reason: pain) 5 Days Qty: 20 0RF aspirin [Adult Low Dose Aspirin] 81 mg tablet,delayed release (DR/EC) 81 mg PO DAILY acetaminophen [Acetaminophen Extra Strength] 500 mg tablet 1,000 mg PO .q12 hydrocodone-acetaminophen 5-325 mg tablet 1 tab PO Q6H PRN (Reason: pain) 7 Days Qty: 28 0RF Print Language: Ethiopian Instructions: Arthralgia (ED) Additional Instructions: Call Dr. Caldera in the morning. Referrals: DOROTHY PERLA [Primary Care Provider, Family Practice] - 1 week
--- OUTSIDE RECORDS SUMMARY | 2025-05-08 19:50 | XMS_ITS | CCD ---
Author Organization [facility] Care Team Providers Care Alternative Education Teacher Name Role Phone DEV PERLA Unavailable Unavailable QUIN ROBISON Unavailable Unavailabl sharath PHYSICIAN, DEFAULT Unavailable Unavailable PHYSICIAN, DEFAULT Unavailable Unavailable DEV PERLA Unavailable Unavailable ROS CM Admitting Unavailable ROS CM Attending Unavailable ROS CM Consulting Unavailable ROS CM Admitting Unavailable ROS CM Attending Unavailable JAIR CARPENTER Admitting Unavailable JAIR CARPENTER Attending Unavailable MISSAEL SCHAEFER Admitting Unavailable MISSAEL SCHAEFER Attending Unavailable EDV PERLA Primary Care Unavailable Dev Perla MD Primary Care Provider [phone] JANINE ISRAEL Attending Unavailable ELI GARCIA Referring Unavailable JANINE ISRAEL Attending Unavailable DUSTIN ZUNIGA Attending Unavailable DUSTIN ZUNIGA Attending Unavailable DUSTIN ZUNIGA Attending Unavailable Dev Perla Primary Care Unavailable Missael Schaefer Admitting Unavailable Missael Schaefer Attending Unavailable Missael Schaefer Attending Unavailable Dev Perla Primary Care Unavailable Missael Schaefer Admitting Unavailable Dev Perla Primary Care Unavailable Dayis Silva PA-C Admitting Unavailable Daysi Silva PA-C [...] Translations: [Keflex] Drug Allergy 09-20-2009 [facility] Repository (18 sources) Cephalexin Drug Allergy [address] [place] [facility] Medications Current Medications Medication Drug Class(es) Dates Sig (Normalized) Sig (Original) acetaminophen 325 mg / HYDROcodone bitartrate 5 mg oral tablet (2 sources) Opioid Agonist Start: 07-23-2024 End: 07-26-2024 take 1 tablet by mouth every six hours for pain HYDROcodone-aceta minophen ([place]) 5-325 MG tablet Indications: S/P carpal tunnel release Take 1 tablet by mouth every 6 (six) hours if needed for severe pain for up to 3 days 12 tablet 07/23/2024 07/26/2024 Active Start: 07-07-2024 End: 07-10-2024 take 1 tablet by mouth every six hours for pain HYDROcodone-acetaminophen ([place]) 5-325 MG tablet Indications: Post-operative pain Take [...] Range Facility Consent Formson 10-05-2024 Consent Forms [id number] [facility] Summary[facility] 11-10-2024 Coding Summary HTMLBase 64 UbvokqyrCJo2hZx+PGhl YWQ+EL6TGCRtP53nnGLc yV8eP7WSCJwSOzezJGWD COgKMjJqoeFeZX1srOVl ZXJu IC8+JL3nNZNiQfxgjHEb p1G3zZI2W89sdp3pEQzh dDA4PVLrQgFkfxkyw9pv mLd6FTeaCgzuPpIr EEPeyH45QMZ0hE34Oy12 bKWvsMWrd8xufVa9FnBy MXPdDFA8fTtyXScdf2Sl FDLqF53rqWCmw6K7 IGNvbGxhcHNlOyBlbXB0 gY8iTHerjbtsi4bpygps Uee2fs24lWGcf9K9nHD9 D0JxzuA5HPCytMSy UxeqxIQBfC5ptucxg8lh wmytCsIjEAXgPIg9UEc4 LBMyfYgcJoXoMQ79YGC2 KYGcpuSkA5JvVVJi bPvrOsA0z5L7Ii7GZ4PA DqacH4CYGCSHPIpgeDR+ GM52vp68K0ZwSooaEek7 NZPdZVS7nMQ1sJ3q TCDpHMfei5A3zWL9P5Wx ouOgqd4ot5hfFVKcGMwa C11iiHKef2Y9LFFopJU5 GCToyXooGbWgdT37 Oyc+QXWimBcbg6VeVggi i9mow3imoKx4UuddWEHg pjRlhBnkRJJ0x5AqAg6i HFMfcBY6jHM5fG2m OcFbDfZ6ZEvkV176TrOf jIEmEavhY87uV7IolMT+ APGmJdk4UWIilBqtVC5h Q3OsDFGatryllIWf yPnaDL8kJMThzhixBSZq fT0uTRVrP8y9KlRbYoL5 QBmlF5UkFAJskmuiLy75 rU3lXbPuVmT1KCyl S3KqibX0HGZxfPWlSPaz CKS3B87qv2Z3UIVmGWVb HIU7fXV9yU1kkXsglhxa bGVmdDsgdmVydGlj EQwoDBokC639TCZuwDkd PkNvZGluZyBEYXRlOiAg MTEvMTAvMjAyNDwvdGQ+ LXSwEIB8rXkiISSy nCDqXNmlRh6mtUrraTop OR6fRLShvpcpDHObbN4p OJOvdVLmbKbgAT3tWQNi lsgun784WxVbIAK1 RRKhoKFvL9QjrV6nNvIb HYReUGBcM3YnwOSjIAsx F979MZpmWfO0VQMdthKq W5UqXNPcuVxqYgK2 o9V5Bh6Hc1EmhicdJ7Lp sNZfUeXtCdunIYa4A7Id PjwvdHI+GB81JZZpDI56 MSy1GIW8hXcuWAbr JKEmL8JlxU9cDdRhIFOv ZGRkOyc+PHRhYmxlIHdp ZHRoPScxMDAlJyBzdHls RV2vBw1uCWCxCYZz tZlupEDjWtNao6cqEIOx IFgcVY9guKckY7UexHJ8 FRLhp7q0Ji63F42pI8Db dXA+QCStnIF0gUK7 kY4aNyQjZeI7TQrkW821 AaNyjFOzBmnxt8kwi7wr uNi7YoT8HEMzqbZpjDhy RLZ2w3WjKg31P18j IHdpZHRoPSIxNSUiIHZh wCpqgi7xyS5fHl5+PGNv mWJ7lSM6yH3fQmVjRuM2 LJtjI187AsWcwLLi Tlhuo7pzv6qlxTc4FtPw YEBkfsJibYuiKDX3q9Xj Fi28B4ZeaMrxm2KvBbk9 yv37zYBeb7Y5qDK6 C7XyBHGxvqwbgALyeBha EM5uIGUqwyjoVFZhuF6d FQGvQ0e0PaPtHrG1AFen E9PnyeW9EKFyeUIc YIQzgOEViG3fsixcb0qb teagHsTjYALeAPk8LZu3 LOJrkGyaYkSxNEK3AyW0 MBU1gVUcpA0keTlz rktgwD5aOib+UOW2oDAr mDDLCE7dRifhgYW+PHRk JEZ1aKwwEAapILOlgH7l EOZuJ1d7HkMgOcY3 QKmeS1SdhxI3JDZriCAe IQXggHVSfJ5pfaxuk6kq gqogHdUoCRNrCSr7JXr0 LWFsaWduOiBsZWZ0 VeV6DHB9nNLqkX2szTof beycyJ6cIje+QmlydGgg HPN6LNk5Y7McIvf9EHRk nVloMO8asQJeBCfl Th3eeIlfqZovDL0pHOYv lfcdo708WjXps7fcIDCz dBCcAHuoZMS0B35yo0O1 XXViCBVnWCB4vBC8 nN3sbKjjiyklbOVjsZus ltOhtSxjLDrfHNjiF918 RQSlgMeoKmZjSNm1L1Yb Fcc6ZAZyvBxnMB3t gSTsWIbgIf8vgGeqgKze TG9zQBTbwjhxg845NdZy f1mxYEJpyCUrZObvWGC3 U67pa5C3OIJdKTAp BFR1dDK0fP3mzEvvzrea bGVmdDsgdmVydGljYWwt PKbtQ690YXLipMsmIyRv dKl6U9RgGwn2GLWb uOxjLF5pwRZbWQrzUb4f fQlwjSrcBG4bETKpcscx g187QzRtu6daIODonYNh NSkdBBL4V09qz6B5 WYDtFXMfWDK7nCU1kI0u bGlnbjogbGVmdDsgdmVy dRfgTBytCCrhL573WUBp cDsnPlBhdGllbnQg GVocYQh7H8EpYabezFT+ IS31ZURdKT87oDCyuBWe w5mceDx7OtEsZRZvQFN9 pQimTFvqh3WjXWLj V46qbFFub6B8LHOhfYsb kRHrJgTliZT5oI4fCTfp nwdyo6mbjzpcMpqaz9wa lj43eS26D63mEFzw ZHRoPSIzMCUiIHZhbGln ef0upK7bRk5+PGNvbCB3 wON3xT2qBZFeDwA4XQop R664AkHhsJOcVhvm d4swa6rxrXn4RpU3JRYm irWjrVfePKK1j4ZoDa38 Z72hBWmxPECvGVHkTLFm VUFylHlndz6ppB5k Ii8+BRHuuAJ0hVB7zX8h JfHsUpH9BCkpD362VqZo mIQeHwptJ57lA5SnzTN+ JVMmVjg5OWGvfXxy JA0bzTSeKJzdWo1hUEE9 KrJcFxSwQXgaF9VpVTCe oziodraocHT0AUEuEMLt kM25Qw4iyNkpJHFj sMKKoJ4lvilyk2vhmrdn UoZaRLYuVIa3FOr3LWFx vXgqYmGdKQX5SfA3WLM4 cVIscE1vmLjmddoh sL6bP7CrNDGlebplNk77 iT8mArGwDgW1IQnzFjt+ LHFUJVGHX2CwCJaMRdgw PNmEIT57N2SmBoh5 TAKltNdvLJ2gjHUlSDga De4vqFnimThxZW4uKEDi saniKWDatM2jSYTkoAWb lKjgCC9gDBOvxfsq y880AxPvBNJ6YLLleWEo U2BlrA5fGtJhXNXwBNDp U2SidYHqMXvuS785NPwf UtY3XAFcmeGmP0Hh JDXfrAflUjX0a0W6Jh4u QT0mWt6yXNA8SY19VL12 sUZpw0G2fWS5G0PjRKMb zoskcfwbhUH3WRZo DAEhuP86nLLtRZoyVt8i f4K4t398MYGmNCOvfD70 Lv9ddXotBWSlpNHKaR9y teuxp1hmrhfnGbUp JLTzARq5VRf0QLPzsNdr GrWnZQS4PeM0QJG3dAYu uR4jkHxhzvirxI3sMlz+ EXimWWKefaL6L4Lx Ehk5VBDddVjlHN2sxONd VCktUa0fvQwhzZiqZX4g MQFthqmvCHMamP1nJBFa dIBpuAtcMJ9pGPRs rgxef628GoPpNYJ7GXMm wJIzU4SreI0kFmGgYNRn DASgX6EnxOWdVYdoQ319 DPubCuM4NNZodtCp G3ByYSObiWrfCvN3n3M0 Ff8WWWxZAU12OK40iXDu v4Z4zQQ9I0PzVRDvagnt jfslvFG3PZTxADJr iK15lLJnCXnmXc7zz8F9 q898NLIzDNBesX50Bx8l iLvlHGTenDIJiP7blkee l6wcvcqrHqYgBQKs BTs4JDc8MLYvtNxoPmFm YOX3QjA2QOT1bIWdlQ5v gKigvbzfqP3eAap+RGF5 BGH9ggwrgpq6X7Ic PjwvdHI+LV74YCMhPE62 zLRjfJEie2vjkKi3WdMa JVWtTUR4aKmkPWopi2Hp RQGpP75rwYHrm2S2 IGNvbGxhcHNlOyBlbXB0 tW4tZKnqghuei3qacsns Ixlti9zakx13kB20H98e IHdpZHRoPSIzMCUi STSttFvjzn5lfJ7dVs6+ AOPfiHO0vOQ6hC8tWoBf HiP1CQobA132HuPtzGXs Wegcs6mzw9osoEp7 IjIwJSIgdmFsaWduPSJ0 r1YoHs36K72wNAemJUTf DFEsHYDdAPFxfYcaew5o nG0zHb0+EI6jh9xi nc79mQ35gYV+PHRkIHN0 mQpiKYpiIJMxqG3xIYso EmV7UXOkYpJtxB32uKCb XKtxJu0lhBtgfPit MK3jEXNfvyljz240BfHm x4slMEEmhPOaDKtcUPH1 C48va7R9PLPbYIPlWCT5 bIC5xK6gkOsrfjyd bGVmdDsgdmVydGljYWwt HDbvX042DADciTsdYmYr qRSkJ5jzthWOFI2kHxaf dGQ+KAMpUXC8eDsd BQcuKFQhaP9iBBDhT5y8 QqOgWtD3DZsvR0AnhdQ2 BBLmxSScHJIcnXANgZ5y yukgc9vsppimIsDv OYAsURi6TSt4NJUvbOvz YmLfROF4VxA5DJG7iCZd eM0kaWeybacbnQ0tPfa+ RklOOjwvdGQ+PHRk AAN9uQweAWnpKUIzeY5h ZEUnN7c7SmBxRdF5IWas Q4XoqpA0BMCnwBXuTBAe gHGVqR5kkdzfd1gu niwsHuRbMRQtRBk4AGe7 DECopHszTdQkXPA4EaW0 DCR1bFKfxJ1mmKyouqbm mY0jOnp+TVJOOjwv dGQ+WBJeDEB4qJjxYYzb VFBbmM4aGNSuU6a1WzHe MnV8EUnaJ3BzutW9EYPx kQBmZLKomBOZlT1s gvofp1qmmoyzRaXwSIDy QEt1ZJa5ARHlfHuhXqOp EQY2PdY5TKZ9pERwzN6x jCdvbaccyU2mCbl+ KLJ1XIQ2NX14JU70G9Qe PjwvdGFibGU+PHRhYmxl IHdpZHRoPScxMDAlJyBz bBhqRF7dHz5xZCYn LWN (more content not included)... [facility] Consent Formson 07-25-2024 Consent Forms [id number] [facility] Instructions [id number]# [facility] 07-24-2024 [place] [address] Patient Discharge Instructions Name: SANJEEV BLACKBURN JOSE ARMANDO : 1965 Patient Address: [address] [place] [address] Primary Care Provider: Name: Dev Perla DO After you are discharged if you find you have any questions, please, call [phone] ext [phone] to speak to a nurse. Discharge Diagnosis: [...] contact the [facility] 12/04 Crisis Hotline -Text 4HYQA me [phone]. If you received any narcotics, sedation, or [...] business decisions or sign any legal documents [facility] would like to thank you for allowing us to assist you with your healthcare needs. The following includes patient education materials and information regarding your injury/illness. SANJEEV BLACKBURN has been given the following list of follow-up instructions, prescriptions, and patient education materials: Follow-up Instructions With: Address: When: Dustin Zuniga [address] [place] [id number] Business (1) 08/03/2024 2:30 PM Medications [...] 3. DO NOT lift heavy objects or health economist forcefully with your hand. 4. Change your [...] or concerns, please call the office at [phone]. 7. Follow up as scheduled. Viruses or Bacteria What?s got you sick? Antibiotics only treat bacterial infections. Viral illnesses cannot be treated with antibiotics. When an antibiotic is not prescribed, ask your healthcare professional for tips on how to relieve symptoms and feel better. Usual Cause Illness Viruses Bacteria Antibiotic Needed (more content not included)... [facility] Intra-Op Record Summary Primary Physician: Janine Israel DO Finalized Date/Time: 07/24/24 13:50:08 Pt. Name: SANJEEV BLACKBURN/Sex: 1965 MALE Med Rec #: [id number] Physician: Janine Israel DO Financial #: [id number] Pt. Type: D Room/Bed: / Admit/Disch: 07/24/24 [...] DO CSFA Role Performed Surgeon - Primary Photograph Developer Planting Material Unloader Time In 07/24/24 13:26:00 07/24/24 13:22:00 07/24/24 13:22:00 Time Out 07/24/24 13:43:00 07/24/24 13:50:00 07/24/24 13:50:00 Procedure Carpal Tunnel Carpal Tunnel Carpal Tunnel Release(Right) Release(Right) Release(Right) Last Modified By: Marybeth Baker RN, Debra RN Myers, Debra RN 07/24/24 13:48:51 07/24/24 13:48:51 07/24/24 13:48:51 Entry 4 Case Attendee Eunice Grant RN Role Performed Photograph Developer Time In 07/24/24 13:22:00 Time Out 07/24/24 [...] Out Time 07/24/24 13:28:00 Participants [facility] Debra [facility] Last Modified By: Marybeth [...] Prep Syntegrity P (more content not included)... [facility] Pre[facility] Pre-Op Record Summary Primary Physician: Janine Israel DO Finalized Date/Time: 07/24/24 14:08:57 Pt. Name: SANJEEV BLACKBURN JOSE ARMANDO LloydB./Sex: 1965 MALE Med Rec #: [id number] Physician: Janine Israel DO Financial #: [id number] Pt. Type: D Room/Bed: / Admit/Disch: 07/24/24 [...] Signed By: Ernesto Parrish RN 07/24/24 14:08 [facility] Patient Handouton 07-24-[address] ISRAEL'S POST OPERATIVE CARPAL TUNNEL INSTRUCTIONS: SURGEON'S WRITTEN INSTRUCTIONS: 1. Keep your hand elevated above your elbow for the first 24 hours after surgery. 2. Wiggle your fingers frequently while awake. 3. DO NOT lift heavy objects or health economist forcefully with your hand. 4. Change your [...] or concerns, please call the office at [phone]. 7. Follow up as scheduled. [facility] Coding Summaryon 07-12-2024 Coding Summary HTMLBase 64 LlbhjaewZNu7nHe+PGhl YWQ+JF1VIMVxR78sgTFp dT7jW4MBJIoVLtrfDIBS KDdXYlSsojEaXR9ahRZv ZXJu IC8+BT2rTGSzLzyecNGu p1E6fIE5Z21qac0nTLeb tHC0AKGgFwQboaaxg8et mQm6OCvwVyklRtTy LVGybK29UOZ3rY94Dm45 gKVvlSRcf1kzoIl9BpZd KTBrSON5yOadGYgqw1Ih CXIlL41mnQMdn8J7 IGNvbGxhcHNlOyBlbXB0 lC1cQCphytzij6ebsyqr Kjo5hc22lYXzz8L3eXC5 W9LutsZ1KUPlnSSc MjdjrDLAwQ5mampbg6qo dytqLrScHJDvMSb9VHj9 PDNdwZveEoTcDE15YAQ2 UXHakiDbG4RwDGJz fBynLoW8z9H1Hx3YE6IO OtqiP1KHKPWMKZoefXM+ YF23nt55M5BrTcwsSxu9 YMYbBVZ4gOA2bA9f HWDcAXibm4W6fYY3T8Ye beRsno8zm4ucZXVqZMmz J23hjBHba9L7FYRiqOX4 VUGyaNauMjNmmF54 Oyc+OPUhbNtwf1ZlTkaz m9tde1omsWm2TpbwBMOg orJdxSrbNOG2z0DkZb6u KAOmpCE1cPK5kI0y HhMaFsS6NJnkK848UwZa lTNuUmoqE08gG2RvpCT+ NSXrAlg8SEVzdObwVJ6z F6PuZQSihyokaXYz zDtrAR6pXNNjyifkCFEz wJ9aTHKxL2x4KyKtWqI5 JOsfH0RkXYUyelwqJp63 lB0aKlNtJfD6VOdh A8MejuS0VVCvtDIqMWxz CKA3K43ou9E0JNWkXLDt BMO7kQD2nO5xxHuxcycj bGVmdDsgdmVydGlj VIcvYWfxL615MNCofXqn PkNvZGluZyBEYXRlOiAg MTAvMjMvMjAyNDwvdGQ+ IWEzEEE5yKwjMRBt vZSwOCcrCt8gxHdrdHzn VL5jPUDlxakhQPDfhJ8v WAWwnBCzsFlpYM1mXOKp esbsr074MnBuYXQ5 JQAaqCJeL9VphP3nPsYf OTUcVMHxD2MtsPTrLWmx M261RFsqKjK3SZGkqxRz U4ObLRDnpWyuZfI7 d3J8Ks9Uz4IrrchiJ7Iy iVExKuFbTrblXTh9V4Nj PjwvdHI+WN21VBMqIE44 XZu9VQB2wMaxJEpr QJMtQ5PzfM0uSqPqOBEn ZGRkOyc+PHRhYmxlIHdp ZHRoPScxMDAlJyBzdHls GC7iNx9fWAFvRVUb nVxmsNLeDaQcf9zfYYMp YQyyHM6erAhiL9FlnZF5 YQEnm7r0Za89O05mE0Xu dXA+BCVvlYG1dIY0 vE2yIgEaBrQ8MBomT799 JsMfcXInKmcnx3edu5cp wTd2QrS7TCSdunCbcZzx QPS5e0XmJs46C02p IHdpZHRoPSIxNSUiIHZh iOhohq9ayA3tNo6+PGNv dJR2iOF5jL1oNnJaBiZ5 KKjnC905TfYqoKZi Pmbvs6gyz2zdqYj0BqDa PORxpjYweTyaFHG2e0Sp Lx22E9TviZole8EuNfe3 jt06sNGwo0C7cKE9 V5LhSXVzhcwxuMSorHgw UY2eLQHpblchANNjzU2b OOGqZ2n7KaCkNeI7JZss A6NxvrT2CAEfvJMi CLLxkARGaG5ejugnh2db jqezMvFjJCNjOMv8FNn9 OBHzjKtgDqPaNVJ5NpK1 XGE4xMNbhJ5qpCpi qbekpA1zRix+LUP6kBYr eHJZKB1cZscysVS+PHRk ZQN3bPvsUJarIFPdmH9k RBZtK1d5NrUnZlU8 QKaqW7QlavB7WHTqgXQg APFpySDAuL9ujcucd3hd jfiaUmKlZBSiUYl6YUs7 LWFsaWduOiBsZWZ0 XpA8LSF4jOAbtR6gwGue ftkmuP2vUwv+QmlydGgg NFQ7CVk4Z8AkVwi4WMYf fNkbBH9peIFtVXhp Dm7gbBtudKqeZB8zJTNh bcygy158GbPro9gkRSOa hHXrGDpqRHO7J30mv6O7 CQBaKUJqPQG4wLQ5 kV7kzFnelswkmWSwrBst wjXwxWyxXAddHAqvH311 URPjfObrYiVnQZo6P5Vg Nyj2RLGdfHhqBX8n kCYxWOqrUr2weSwriSoa TJ3zAIJxabbmp114RgQu c2hyEZVrpUUrSExiIXX9 R62oa9U6ZYNiZMBa RNR1iAR1bA8zfCiopsxq bGVmdDsgdmVydGljYWwt CVjeI107VTQjzOxsLaLe lRy6W0CaYzd8JIYs cXaoHC4hdVRcKHsjAw3e rKotiSjsCR5cUKKtowwj q358PpEfq9ylSVKjlUTh DYphYYS9N95or2Q3 BEWfSPYmZWP6rBX9uK7n bGlnbjogbGVmdDsgdmVy aSqjLYxfAQmdX904UGZm cDsnPlBhdGllbnQg ZRivIXv8J3IwAnolrTL+ UM00CWCgOZ56nMSxrGAu n7nvdUb5SpSiSRTuVII3 oYbqPKzof4AlGMGy W27xyLDnr8R1KTNqsLsm gCVrOgKscNZ4eV1iITqf siofw5xafvisEvfbn7ex ae99pL79M28zWDhw ZHRoPSIzMCUiIHZhbGln et7axT9iOm4+PGNvbCB3 mGS4hV3uQQZqAhW6TDnj L245SuBaxBNbMpiw o5hex8jhcVt7GhF7LIFa vbQllNtqWKA9n1WiDm35 D95qIVmoEROyTUBrJRPo LZRklLymhq2csU7v Ii8+BWUagVN6wFW1sB3e WzPsXjZ0OGynZ525MoZp cIZtPmvxR92pL7FkvYF+ COIgSfn7YYZxgNjg WB6cbDGcGYreMi9dOLS8 GuMwBhVeMHlcC7RgCLIa uhmiegwzvYJ7TCJtDXSt cN38Zb0tqGxtOKPg kXDMoT3finxsq0jhrqwb HgYfKYPgVUg6CJn0SBPd uXniTcPxDXK1FpJ2CRZ2 tBMstC7moVylixpj lH8eJ7PiUJGszplnMn16 sW9eBnJuNfH7XLbqFds+ EVNNKBAAS2DhHAqDGjgy UCbKTI18S4DfCyn4 UCCipDlsOR3hmNTdBXvf Cf6xqWjbbMaeXD4pKJLa ppjpECMxqN2pGHHkvYDq sEdfMW6iDSLyjucz t239SwLnWQJ8TBBruFVz J4CgeZ2yFcEdNEAxGAQs A5MvlMGeOZwpE043WNlf IlH4FIHcbsSbE9Vw FOFtzWltFiT5f1Y3Nh0k YW7mKe2fTBT3RX51VO08 mUOya6G7bHN3R5JvIJWo yfifkfkuaHK2PVJp LWHnbL50wDZjIPydMj8s a5Y9x196CVWzVUOabY51 Nr4xbPmnVOYkkMQFiD0i lgeny4xmimiiLlRg QNViLVe3QFl6TPQkkVkb ReJiYBP9CfS3DPP9qVMx qM4qmZthioagfQ1dLjt+ CLqdXEHtgsX6E6Rr Eyc8JTYcgFirSV0dhMCt LUspVl8lhSnkvZvcRF2j GHAezdxkESYfiK9aBRXk aGShsYacRL6hXFCp xpkai044YsHvVLD1HQLz aFDlE6ZllF4eDdKlLTCz KIUuS2AcxCUnJNkaC430 SKyhJsE8IYYkkdWi S9KyCVImxJhyTxZ3r9T7 Dk6XXWxHVK05BM09yOIu q0C2oWR2X9EoPYZihwub ryzljRP5VUCrPYKs qV18qQMwTZrrJp0cd0G9 y363HRCiDNEbcD50Rj3l vVquBGEowYQPeD7jpsef v6yymdgkJiKcNLPg YMx6BKu5VUNsnAnmKjNc KAY7GsT3SXV0cTVzvM7s xYufklgqpY4eVwq+RGF5 MOJ9zbqpync3U1Ua PjwvdHI+DD34AAKzGA34 sSJslLZzv5wshVr6FxXo QLYvSTU8gPzpXIhab4Nz AYWkP20twJLem2I0 IGNvbGxhcHNlOyBlbXB0 uQ5uQQnlziosr5ngrsdr Mfmwg3wrmp14jM00L64u IHdpZHRoPSIzMCUi JWThgHqwtq1igG1oYy2+ WQEttXC7nBD5fS3rCwOz FxD0VLraH965QxRfpUIg Uczih5isa6pofKu9 IjIwJSIgdmFsaWduPSJ0 m3GiSr55V08iTNpuTMEv GGHeVOApEMYtrRtbts3z xB6mRk7+AU2mf2ca ug16jY29nOY+PHRkIHN0 tGfwXJumFMGyxN0cCVmm MmN7SIKoWrIjlD81eREe AAeoYt0rxQruvFjf UO8lEVXoktcrm661XxYc i2lnFIPjdCBlMYsvFSI9 L12kp5D0BQHhHGEfNUF1 zTB3uS9ygJhflhst bGVmdDsgdmVydGljYWwt HDkvU028KMChyIakJtQt bEUkY8ejypNYEW0jVhmh dGQ+VBZoSDO5bGar KEhmKKZyzS3eHUCpG0n1 FsMsSmL1GDvvH5AlasA2 NKLuaIZpOIGthLHRgP9c tlmbj4fipwhuMwQn EVKnSSl4WHx7HTEqfWiz VjXgXSI8LlU4TLW8rKSv kT6nqJzsfmdceD8uYpz+ RklOOjwvdGQ+PHRk TSU6aKolBVpwPYPptP6y LABhU5p5FiUtVcX2ZDfl B4MrglM0XYOvgHWbUMTe bPZKwT3ibrttk4ss mkhgTgYfBPFgSZh6ZLo4 XDKgfNmcUoFlLHI9RsC0 GMW5fCGhlT5zuAlzljjl mK0kPll+TVJOOjwv dGQ+BGNwWUT6fPytNJom WFFsaW4rXHDxS2a5WlTx OhU6XUwxG3FcjdH1WIXs kJOiWJSroZESuJ9r yiamm8klrutmSsJaTCMe BWy0OFm8TKApoXnwNpJu JYY1BoB6LYZ3tKEjxP9c rEppthnouI2bCiz+ ELK4QMP0JZ56MJ21U7Fa PjwvdGFibGU+PHRhYmxl IHdpZHRoPScxMDAlJyBz oWsoTY9pDs7oGQOd LWN (more content not included)... [facility] Billing Authorizationson Billing Authorizations [id number] #1.00[facility] Consent Formson 07-11-2024 Consent Forms [id number]# 1.00[facility] Discharge Instructionson Discharge Instructions [id number]# 1.00[facility] Inpatient Patient Summaryon 07-10-2024 Inpatient Patient Summary [place] [id number] Patient Discharge Instructions Name: SANJEEV BLACKBURN : 1965 Patient Address: [address] [place] [address] Primary Care Provider: Name: Dev Perla DO After you are discharged if you find you have any questions, please, call [phone] ext [phone] to speak to a nurse. Discharge Diagnosis: [...] contact the [facility] 12/04 Crisis Hotline -Text 4HJSQ to 274793. If you received any narcotics, sedation, or [...] business decisions or sign any legal documents [facility] would like to thank you for allowing us to assist you with your healthcare needs. The following includes patient education materials and information regarding your injury/illness. SANJEEV BLACKBURN has been given the following list of follow-up instructions, prescriptions, and patient education materials: Follow-up Instructions With: Address: When: Janine Israel [address] [place] [address] Business (1) 07/20/2024 2:45 PM Medications During [...] 3. DO NOT lift heavy objects or health economist forcefully with your hand. 4. Change your [...] or concerns, please call the office at [phone]. 7. Follow up as scheduled. Viruses or Bacteria What?s got you sick? Antibiotics only treat bacterial infections. Viral illnesses cannot be treated with antibiotics. When an antibiotic is not prescribed, ask your healthcare professional for tips on how to relieve symptoms and feel better. Usual Cause Illness Viruses Bacteria Antibiotic Needed C (more content not included)... Normal [facility] MAGR Intraoperative Recordon 07-10-2024 MAGR Intraoperative Record MAGR Intra-Op Record Summary Primary Physician: Janine Israel DO Finalized Date/Time: 07/10/24 13:39:45 Pt. Name: SANJEEV BLACKBURN /Sex: 1965 MALE Med Rec #: [id number] Physician: Janine Israel DO Financial #: [id number] Pt. Type: D Room/Bed: / Admit/Disch: 07/10/24 [...] DO CSFA Role Performed Surgeon - Primary Photograph Developer Scrub Personnel Time In 07/10/24 13:03:00 07/10/24 12:58:00 07/10/24 12:58:00 Time Out 07/10/24 13:26:00 07/10/24 13:28:00 07/10/24 13:28:00 Procedure Carpal Tunnel Carpal Tunnel Carpal Tunnel Release(Left) Release(Left) Release(Left) Last Modified By: Eunice Grant RN, Diane RN Kokinda, Diane RN 07/10/24 13:31:50 07/10/24 13:31:50 07/10/24 13:31:50 Entry 4 Case Attendee Geovanna Zaidi SPECIAL NEEDS CAREGIVER Role Performed Planting Material Unloader Time In 07/10/24 12:58:00 Time Out 07/10/24 [...] Out Time 07/10/24 13:08:00 Participants Geovanna Zaidi SPECIAL NEEDS CAREGIVER, Eunice Grant RN Last Modified By: Eunice [...] Entry 1 (more content not included)... [facility] Pre-Op Record Summary Primary Physician: Janine Israel DO Finalized Date/Time: 07/10/24 13:43:42 Pt. Name: WALDOTRISHSANJEEV./Sex: 1965 MALE Med Rec #: [id number] Physician: Janine Israel DO Financial #: [id number] Pt. Type: D Room/Bed: / Admit/Disch: 07/10/24 [...] Signed By: Ranjana Adkins RN 07/10/24 13:43 [facility] Patient Handouton 07-10-[address] [facility] POST OPERATIVE CARPAL TUNNEL INSTRUCTIONS: SURGEON'S WRITTEN INSTRUCTIONS: 1. Keep your hand elevated above your elbow for the first 24 hours after surgery. 2. Wiggle your fingers frequently while awake. 3. DO NOT lift heavy objects or health economist forcefully with your hand. 4. Change your [...] or concerns, please call the office at [phone]. 7. Follow up as scheduled. [facility] CMP Standardon 06-16-2024 eGFR Non AA >60 Invalid Interpretation Code [facility] Comment on above: Performed By: #### 7 [id number], [id number], 3784318, 4314707, 4477230, 8112555, [id number], [id number] ####[facility] (DEFAULT)[address] [place] [address] eGFR AA >60 Invalid Interpretation Code [facility] Comment on above: Performed By: #### 7 082654, [id number], 8349311, 7370007, 7271438, 9399880, [id number], 4113427 ####[facility] (DEFAULT)[address] [place] [address] Albumin [Mass/Vol] 4.4 g/dL Normal 3.5-5.0 [facility] Comment on above: Performed By: #### 7 224401, [id number], 5855089, 0726595, 9294149, 5979860, [id number], 8805417 ####[facility] (DEFAULT)[address] [place] [address] Albumin/Globulin [Mass ratio] 1.6 {ratio} Normal 1.4-2.6 [facility] Comment on above: Performed By: #### 7 812483, [id number], 6641230, 5029411, 8152660, 3819174, [id number], 8737538 ####[facility] (DEFAULT)[address] [place] [address] 72038 Alk Phos 58 IU/L Normal 32-91 [facility] Comment on above: Performed By: #### 7 235899, [id number], 7904552, 3740136, 6746926, 1330263, [id number], 5315414 ####[facility] (DEFAULT)[address] [place] [address] 24635 ALT [Catalytic activity/Vol] 40.0 U/L Normal 17.0-63.0 [facility] Comment on above: Performed By: #### 7 372393, [id number], 3686458, 6907747, 8292865, 3847176, [id number], 2441162 ####[facility] (DEFAULT)[address] [place] [address] 72205 Anion gap [Moles/Vol] 8.9 mmol/L Normal 5.0-19.0 [facility] Comment on above: Performed By: #### 7 622801, [id number], 0488472, 4459503, 1127336, 4493477, [id number], 7493749 ####[facility] (DEFAULT)[address] [place] [address] 76974 AST [Catalytic activity/Vol] 31 U/L Normal 15-41 [facility] Comment on above: Performed By: #### 7 807619, [id number], 5377890, 6386790, 7633415, 0955159, [id number], 8984780 ####[facility] (DEFAULT)[address] [place] [address] 54512 Bili Total 0.4 mg/dL Normal 0.3-1.2 [facility] Comment on above: Performed By: #### 7 390333, [id number], 1020156, 7883621, 5771241, 1737561, 8113761355, 5423716 ####[facility] (DEFAULT)[address] [place] [address] 73933 Calcium [Mass/Vol] 8.9 mg/dL Normal 8.9-10.3 [facility] Comment on above: Performed By: #### 7 480575, [id number], 3286983, 7315073, 3214416, 5112396, 9346045533, 4050586 ####[facility] (DEFAULT)[address] [place] [address] 56848 Chloride [Moles/Vol] 103 mmol/L Normal 101-111 [facility] Comment on above: Performed By: #### 7 629789, [id number], 1423605, 3808699, 1838635, 5545077, 5779316734, 5646120 ####[facility] (DEFAULT)[address] [place] [address] 97120 CO2 [Moles/Vol] 28 mmol/L Normal 21-32 [facility] Comment on above: Performed By: #### 7 739581, [id number], 1238332, 8875413, 9273456, 0818399, 7902996613, 3642725 ####[facility] (DEFAULT)[address] [place] [address] 88105 Creatinine [Mass/Vol] 1.11 mg/dL Normal 0.90-1.30 [facility] Comment on above: Performed By: #### 7 638429, [id number], 8524101, 3953973, 0286057, 7894511, 8862643501, 7405451 ####[facility] (DEFAULT)[address] [place] [address] 66861 Globulin (S) [Mass/Vol] 2.6 g/dL Normal 1.5-4.3 [facility] Comment on above: Performed By: #### 7 649393, 4375053613, 9018552, 2809521, 9609998, 7190913, 9924644928, 0825520 ####[facility] (DEFAULT)[address] [place] [address] 70686 Glucose [Mass/Vol] 89.0 mg/dL Normal 74.0-118.0 [facility] Comment on above: Performed By: #### 7 [id number], [id number], 2498536, 8678627, 2512853, 6969726, [id number], 4399869 ####[facility] (DEFAULT)[address] [place] [address] 82456 Osmolality 277 mOsm/L Invalid Interpretation Code [facility] Comment on above: Performed By: #### 7 484058, [id number], 3263994, 5265437, 0334148, 6937301, [id number], 1089794 ####[facility] (DEFAULT)[address] [place] [address] 09704 Potassium [Moles/Vol] 3.9 mmol/L Normal 3.6-5.1 [facility] Comment on above: Performed By: #### 7 445560, [id number], 6500268, 2738301, 4620842, 8536449, [id number], 0542129 ####[facility] (DEFAULT)[address] [place] [address] 41527 Protein [Mass/Vol] 7.0 g/dL Normal 6.5-8.1 [facility] Comment on above: Performed By: #### 7 579183, [id number], 3052872, 2336994, 3317232, 9633514, [id number], 1084323 ####[facility] (DEFAULT)[address] [place] [address] 55961 Sodium [Moles/Vol] 136.0 mmol/L Normal 136.0-144.0 [facility] Comment on above: Performed By: #### 7 109942, [id number], 6532106, 6316980, 9792575, 4576659, 7572896697, 5284087 ####[facility] (DEFAULT)[address] [place] [address] 99537 Urea nitrogen [Mass/Vol] 28 mg/dL High 8-26 [facility] Comment on above: Performed By: #### 7 449593, [id number], 1710803, 9521142, 9384408, 4862235, 6698650156, 3589985 ####[facility] (DEFAULT)[address] [place] [address] Urea nitrogen/Creatinine [Mass ratio] 25.2 mg/mg High 4.6-16.2 [facility] Comment on above: Performed By: #### 7 110809, [id number], 3403539, 0293624, 7637648, 3094727, [id number], 5959994 ####[facility] (DEFAULT)[address] [place] [address] 39078 GGTon 06-16-2024 Gamma glutamyl transferase [Catalytic activity/Vol] 42.0 U/L Normal 7.0-50.0 [facility] Comment on above: Performed By: #### 7 085594, [id number], 2726055, 9659632, 4343865, 6235358, 6477698342, 3838041 ####[facility] (DEFAULT)[address] [place] [address] 94548 Iron Levelon 06-16-2024 Iron [Mass/Vol] 56.0 ug/dL Normal 45.0-182.0 [facility] Comment on above: Performed By: #### 7 976366, [id number], 3221201, 2991802, 9963169, 8837515, 0521356145, 0639281 ####[facility] (DEFAULT)[address] [place] [address] 67235 LDHon 06-16-2024 LDH 233.0 IU/L High 98.0-192.0 [facility] Comment on above: Performed By: #### 7 349004, [id number], 1280349, 1035134, 6191150, 1542553, 3239394563, 7007539 ####[facility] (DEFAULT)[address] [place] [address] 85296 Lipid Panel Standardon 06-16 Cholesterol [Mass/Vol] 235.0 mg/dL High 66.0-200.0 [facility] Comment on above: Performed By: #### 7 859967, [id number], 3088440, 1561553, 6207450, 6660171, [id number], 4007175 ####[facility] (DEFAULT)[address] [place] [address] 36823 Cholesterol in HDL [Mass/Vol] 41 mg/dL Normal 40-71 [facility] Comment on above: Performed By: #### 7 519116, [id number], 4928744, 2688851, 9459968, 1290938, 5754199939, 1664763 ####[facility] (DEFAULT)[address] [place] [address] 90414 Cholesterol in LDL [Mass/Vol] 144 mg/dL High 1-100 [facility] Comment on above: Performed By: #### 7 709686, [id number], 2225431, 4457250, 7820337, 4005293, 4466038133, 5062121 ####[facility] (DEFAULT)[address] [place] [address] 53929 Cholesterol.total/Cho lesterol in HDL [Mass ratio] 5.7 {ratio} High 0.0-4.5 [facility] Comment on above: Performed By: #### 7 356236, [id number], 8382009, 9260089, 1994465, 2891428, 5830766560, 6298227 ####[facility] (DEFAULT)[address] [place] [address] 71428 Triglyceride [Mass/Vol] 249.0 mg/dL High 0.0-150.0 [facility] Comment on above: Performed By: #### 7 984838, 5760856941, 0904869, 6711499, 0595263, 1452876, 0194130981, 2359643 ####[facility] (DEFAULT)[address] [place] [address] 97760 VLDL. 50 mg/dL High 5-40 [facility] Comment on above: Performed By: #### 7 730777, 2714161766, 2698004, 4333350, 6595671, 6623921, 1797304446, 8124509 ####[facility] (DEFAULT)[address] [place], [place] [address] PSA Screenon 06-16-2024 PSA Screen 4.27 ng/mL High 0.00-4.00 [facility] Comment on above: Result Comment: [employer] Clinical System (Chemiluminescence) Values obtained with different assay methods or kits cannot be used interchangeably. Results cannot be interpreted as absolute evidence of the presence or absence of malignant disease. Performed By: #### 7 150435, [id number], 5912546, 3989166, 8626799, 7731903, 6246884555, 6487479 #### [facility] (DEFAULT) [address] [place] [address] 50670 Phoson 06-16-2024 Phosphate [Mass/Vol] 2.9 mg/dL Normal 2.5-4.6 [facility] Comment on above: Performed By: #### 7 174171, [id number], 8487920, 4516816, 7033486, 0500872, 5576074985, 3064811 ####[facility] (DEFAULT)[address] [place] [address] 72391 Uric Acidon 06-16-2024 Urate [Mass/Vol] 7.2 mg/dL Normal 4.8-8.7 [facility] Comment on above: Performed By: #### 7 344829, 1230505563, 2547081, 2284801, 9263298, 2307748, 8151539895, 4263575 ####[facility] (DEFAULT)[address] [place] [address] Coding Summaryon 06-13-2024 Coding Summary HTMLBase 64 XdgagtyyTZl0dDr+PGhl YWQ+TQ1SXXDkX99shWBl uW0vL4EVPCyDGtamCQNA FKwPLeWlvdNfRY3nfIPw ZXJu IC8+RP6qGVYoRqwywFRr e5X6oKD9C05wog8cCWuw uSZ4RGPrOdLsdcpul9kh iPv8KMcuWdgzJaJb DFNslR34RON3fW81Mt28 iFZeyPOkv4tibGo3AxMt XHPmCYB1tAowUTwmt8Bt YXEuP12goAZah2Z7 IGNvbGxhcHNlOyBlbXB0 uW4cTTloioude4hpyoip Peo0xu14kUBgc2V7qKW2 H8OmkxI6EWNvzKZs TxlvzYSRwJ3aqwvfw7kl prmqHmVsXUIwTAs5NYe3 AMJolYghSkUiVR57CPE1 BBDxipGjL8GaVCAb aIkaXaT7l3D6Wd5DX8OA YrtxL6JKUCYFJZdweBK+ FO47at47B1JbIkvlVoa2 XPYiNXW0uWM1aC9u MATdTTvpi2U4gWU0G5Nu uwYdyi8jr2rxVYYqYRqu C91esDZug5T3KLNxvMP6 IRPkwGyiRrVidR38 Oyc+ULLllPqjd4OdLypa n2oxt6nigFs6UtitDWRc hbIbwCurOJY8o2WbVe3e NSUxmVO2zVS4fF8w QmRcJqE4OVifO286NiGj nJZmOtkbX15gA9MxuGQ+ CXJlAdq3VVPanOlvSZ7t S0TkOZPekagwiAFj hBdzCP0yVEGkusrbSUGn xH3kJARzF0e6SjMlPbO8 UWhoA9RaCKVbbyrbTl65 jH1qFkCeJlJ7DQci K2ZavzQ9QGWslSDpGDiv ZTS4O51yi9P0NWAgJBIu NHZ7mRX1bH2pkFycjoox bGVmdDsgdmVydGlj YWvdMUpjU428XIEglFbl PkNvZGluZyBEYXRlOiAg MDkvMjQvMjAyNDwvdGQ+ QHDvYHP7hQzrMBVm xJBqGDsxAt7pmAonpYpm XL0wAFXuxhpxBZGerV8a ACQglRPumXxaFH2zOCWl veooi848SkRrUUL8 FFAjqUQhW4WhiX7rBbXr CDHyYQOgV8UjcWXsVMxy D721VDewChQ5DURkbtNn S4OqMDRmkNaaYeA9 l8Q3Nu7By1MgngxxD1Gn bSLoLcLiSetlJLi2Y6Nj PjwvdHI+XE43LXIhJD17 BBf0ZLZ8dAcuEYqn BMAlZ4YyqK7sHaXkRSTy ZGRkOyc+PHRhYmxlIHdp ZHRoPScxMDAlJyBzdHls DM3uNo1vONWrDUYw pDdadZMgZgSut6ygOAHo WGhgMN4viWpeJ8XbpPK8 DTEsa4y2Od47I68gB3Pf dXA+IIOleVG0yLH6 aN7mSfVgUoJ0UVeyG525 VkMadUZoLruiu6gab2su rQa8CcT9ORVqmbRaqBqh SNM7u6OfGy57R86k IHdpZHRoPSIxNSUiIHZh aKonbd7hcK5uTu4+PGNv cAR4kPC1aB9hToQbLbG4 BYnaY706UuAljRSr Umaqo7ggj8wyfCb2GxAm ESAxceAglDanDZV0c6La Eb36V7OoyMkeb8QmLqa4 fh11vBSrz9F7cTX2 X4YaXFUjjjfdpLWivGeo DC5tIQTiyykhSAZdjC7d GYNzU5v4CuFnGeL9CUlm G5SwsuV6TTIgkZVw VLKryYZIoQ6thtnuw3qi jbkrOrBsKCDhAOx0NXz0 IVOqhYasBuBnOQG2LyE7 KRJ9iEHiaM6vcHxt wxcooH6cDcc+FML1bUVt nEPZQE1pXmuxjDZ+PHRk YEA8hBpaBKugRMHyqK9z BKNoC4w4DzEgJoL8 JAsuT2KylrV5OJYhrQHq FLTuaRXEwQ6wxumch4rn hyzdJiWjRNJcNSn0LSy1 LWFsaWduOiBsZWZ0 UrD0BAM4pOOwjZ0avAee gsveiA9hCfy+QmlydGgg CQA2EXb8N1WvOnw5LIAs cChwST4vdKWvLZzt Kq0ruDkbhJyzFH8eJTSr qkhlw232AvUeq0dlIECc zNUmAOmwEQA3X23oc5H9 YEDnFGKiDRN0bFO9 jK3ouDrfhybgqBZumFvk dzGeiPuoYQhhCOpcM513 IELwbDvtPuXqKAj5W9Wi Neg0GWQymWfnDA3v xLNmZRvoXz5hnBqkrUrf NI2rLWLtkitmv454HoEq b6xsUAQoqQFuZXxnXIR6 W82od2Q9AQPbILJq URG3kED1qD4noDftxprb bGVmdDsgdmVydGljYWwt NNmiZ983RLDakZlyFyQb tDw0O6QzJpu3HENn kLlgGV2eiTDoECycBj6c oImwuGcyCA5aIPPthnps g748FlIom3vyLGPnaDPc RDwmSQJ5F41cf6F9 JZUyYTGzUGX0mBX3lL8b bGlnbjogbGVmdDsgdmVy nQatEWwgGMchN957PPQk cDsnPlBhdGllbnQg BAgxLPh0G1PhVrsnmTY+ RK43VYOiKE42fFEtwDZk p5qypQs5OqNsMLIzXEO9 fVhgWZlmu7YhZUKg S46wfSPwr3I0BGMbuDfh mUZkYqFwiKC7jB5xTCib axqhb9vksiqtEouvp3ae rs58oS01G37mKKcm ZHRoPSIzMCUiIHZhbGln zh2grL7pEd8+PGNvbCB3 aLC4aS4vHIUsJxQ2GQzv K812LzFnhFLpPcwl k1zjo7llnSg5QxK3DIXn qiKyhKggSTN5o2RwEw28 K18zTNliDKVsCIZpOCJw UFDazCdvcf6kbW2t Ii8+QVUrxIM6iWQ0zV1i WpEcDpE8PLgnP694JjJm jSWeMhwiC69jE8UwtWO+ NYGwMse7CAOtnTsg MX2chBZaRQsqKn2yVPI2 ZcEnKrNjIFeoD7SpFDVk idowodwaxTO7KAKoVFCu lQ95Ic0dzQhoPOTb hCAIgE3oqseyn9xsrkwu DeAuNWBmEZw0MEl9EDXl bFreDvLfHGN4BtL4OUA2 yRAvrT1tsJoybmrn jW2rV5CjSWMqdbzuLj23 cO4nCaFwCqX4GIkyIlp+ MAOTRQLVM7WaIMhWXazv LYxLLQ67I1KyNbk7 IGQpeKlxZL7ddOYsNRme Mt3ttCxouRalMN0yTBTj sumeATLjgR1pMAGbbWOd sTqmKO4hWMCfylel f652LlFxVLD4GLYtaMMp G2PuzX6sHmPmVMQhYXVt Q5DjoNTrWIljW870ILrr FjK6VLDlahIsM2Xm LATltHpvMgA2p2O0Cr3f RC2lBk9vYSP0FV78DX75 bFJyw2D3vAS4W4PfJDQy pvphwukfhPB6YXOx LGJjpL03iCFwLKjzZw5c x5I1b236CQDwMBJlpL66 Ym8ulDfvHHOtvPUVvI6m ubyxg4ashkvaUyEs AQLuXFg7NBw8ZOIzzItf ZkQiXJP8GzY3RGC7nTAa aQ0ifZdbrfgedT0rLsl+ BQnqQJQyjiA1U8Dg Uqf1QMXbfVtxKO0frAGm DFenXl5fuQhwjNrgSA5n NHQxmhwbVCUteS5dSWZc nQXvvXueYF7zUGFa cslbm214AxHqQEU7EPPa oVRsF7KhmP5wMwVnCZQj COXrD7RcyMXvUVooV713 JMgkLzE9FDXszmNy U0GbSHVvuPuxQfR5o7O4 Mn6EASqOCS90IW92lMLq j5F9cYY6Z5GlOOFxqsth zorhqMG7HUXeJBRj oO02eIYjQLrfBz2pq2K6 l236DUYzTAPktS02Gk1e hCnzHGCqhVHXhC3aloyg k9oeflieSbFkCSUp OTa1FIh3EGFxfNabEnTj FPA8IdU1PSP3aWRjtX4n sXdwrbrsiX9eLwt+T1A8 K9CjOnrrzZT+PC90 ZCHiVG77aRRjePVen7jf vCm3SpMaEDNzJQY9dThf QRmwl9IqXAWpC09drFHl q6H9DUVqlQhbhLLp DzWoeGM0iN4gCTnravap z7jcawfrYonmq8vmxm41 vG75D44nYOirRHQzNDHr JVOmVMVoyRdfwn7j cO4iUk9+TMMvlDN7iQD9 mE6vUuKuPpK4QNerI217 FkZqrLYzVzhvs1qfj9mx fHm5EvHsOBOexsWu bVaiUTF8k1AhTn22X24p IHdpZHRoPSIyMCUiIHZh pShves0elB4rVq3+PC9j n6jkod27yK79kUG+ WRQaWCF1dSmmQXlqTJUk tF0rEKqsQeF9QSGlLiSy cP45wFVaNLvaIl0zxJqw rEhfTR4rRNUuqdhg i716EkVnk3psKICvaBUy BRhvDCJ0W24lu4K4FIDj XIJuQXS6uEC3rT7qbEae bjogbGVmdDsgdmVy qCahSCtlYQjcI560DLTm fRweKwTkxJAyC8zlzwCU CS1pQmwrlZX+PHRkIHN0 bDjjZAmzOUGrkT6f PQIlK2t7ApUxLwZ1BWbe N8GzojS3PPCpxCSlCCZu zNVGsP6xkcmxr5qxnvqm RlYwNWPzFHx6AXd0 KHMbmCazWcBnEEP0RdF5 VTJ9tFRehX4waLerpkau qO7fXcl+RklOOjwvdGQ+ NQZqAAW8nDcfODoq GLZcgB7jDWZkY7e2DjLu KxU5QKbqD4QrxyG4XUNw wQGlZNOzkEWIzD4hkwjo f7ofqpybHkVkEZVs VCk3ERv4NVTwcQkbUmEc IVC1QnE4VPP6tRHxdM3i bNugvevalD5rLse+TVJO OjwvdGQ+PHRkIHN0 rNlnNIwnKGJogG8xBQRq R0q7ToKyDcX9ABmvF3Aa ljD9ARTgeCBxNHDmgRMX iW3vxzhdg5ymbzqk EbGdEIJzMIe9ZKm1HDKs sOikOvKeZRU1ViL9YXQ5 wEDavH9ieMntewdirU1o Oyc+SCH7LGI8CZ20 BK84P0EyHjfkeCBwcAO+ PHRhYmxlIHdpZHRoPScx HFHgDgHomUbdBQ2wIq8w ZGVyLWNvbGxhcHNl OiB (more content not included)... [facility] CT Abdomen/Pelvis w/o Contra ston [...] Bourne MD 06/01/24 4:54 pm Technologist: KARSTEN [facility] Provider Orderson 05-25-2024 Provider Orders [id number] #[email or web address] [facility] Coding Summaryon 04-06-2024 Coding Summary HTMLBase 64 SqkhnzspGLr7pTz+PGhl YWQ+CT3WRBSfO66jdHCh fU7aE8MLYIpBKzzwKMBJ CJhYXnZtunLcZU1zpMYu ZXJu IC8+XK5fNAKzJdsbkVTo z1J0tXT6A27qul8hDZqa rTN4FZKpJzYkzyiwe8rc lBx6LKcyDmceWnKx YGIssB61MWG5cO97Ag48 eMMbrRJfk3yskKh3WoXt WNBiGSK6jIjkIUbtv9Nn HYMoD10ieCGax0Y3 IGNvbGxhcHNlOyBlbXB0 cF7jBEktyzykl9gnjcah Npd5xv60zKKft7T0bQM9 C2ZbaeJ6JYGfaMCf YvtuuMQLkG2oqbruv4oz tfrpVlXxINWdLXw7WSl8 YDLyuIaxZpXlBN12NVS2 LYMdhkBfC7PhBNXg qMzhVgX7f6M1Gc7RE9WU LfkcM0LCARRBDNptzSM+ EE88tk92J7SsBqkgYoq5 TZUoZVT3eMD0tX8v XBJzXLgyg0Z7uCT9Z3Ye omCesk5wz1wmTASkZTfp O25pxLEpx4R7LHNpkOG0 ORGnsNmlReXuwX08 Oyc+ZTUfoNiks3VcUhpg k4tvh1gnqCa4CcqgNBVh yvYfiCxiIKQ4k9XdLf7u NHUftBG9rXM3lD7m IrBaOkT4BQqsK306AhEr iDJsWtftF27oY2HebHK+ INMeYqd1QIDgkJxbKS7s Y6RdGEIiocakgURd sQdhDC5wHUNeommuBIKt hM2sSJNhA3p4QtQjIlV0 FSosH7NcJOEmpmmpFz18 mT5nAiOyXjG0MOak E3GxsdX1HOUjcBSuTGdo LQM1L43cl8H4KHPoFGPw FJI9kCD5nO7jeSoflohw bGVmdDsgdmVydGlj UGqiCKtzB615YRYhdQci PkNvZGluZyBEYXRlOiAg MDcvMTgvMjAyNDwvdGQ+ KPKsVRI0eQaqHWBi oOMhXTzcXi4tmJbuiGqo YM4qQWZdcqrjVRCunF3i FWLbtNDkuWofGB8wVPOm hetwz047JnIgRBX3 OHVgdAJiX2MqmJ7vSmIn GVZcGCVsO5NclWLzUZxq V916MHyuAkW4JZNfqtWz I7EzGVXsjZanHrN9 n1B8Ay8Un2GbpcnfT0Uy uEPwTrZrEcsuKBx3K0Fb PjwvdHI+QT51FSFsIY99 TWk2QEG7cKmlPPtj VNMtF6MvpQ0hSuHxSYDq ZGRkOyc+PHRhYmxlIHdp ZHRoPScxMDAlJyBzdHls FF7bYj1uOGPbBGMl tChnnEYtBaPsu3buDXBt VMjeTI3zoGidS1JytSE7 VESzs3z7Km78W73hJ7Vs dXA+DCZuyXU2jMZ7 fI6jZaNaIrG4HJpiA726 WmTvnPKuGhvgm3ufk8ac eKa2ZkE2BBWnmoEiuUtp WIF2o8WjLw98M26q IHdpZHRoPSIxNSUiIHZh wLoxjq8bsH4gMb6+PGNv fVM1hVF7zQ9hPlEsHaZ2 RQwxA503YrDgqJGc Doqlx1esz6vsfYd4NwXn PINqazUjpDoqXBA0h6Vm Mf54E3PkwNugk0JuMmd2 pn88iNWpv7J7vJX4 Z1WtAJGoaktwtFZfiScr OG6uXYNxjaueSKWwiD4m NOLzN9q9KvMuQjG0JVlx R4LcxkU0XNAgpKFe KETyrEHSgB4zdmrnw1oc lvcrDfFyJDCfSVd8WLj0 BKTyjDlyNaCdPDN2XgG5 OER3yUJxnM6laZfh cggjnP4nXlu+ZXB1wQHi oXYDFF8jYwdczWR+PHRk XZG2dTgnGBlsEBVsrG2e RGQiG8u8IuOvDhN9 ZYntJ4WykmL2VKKnlTCb GFEdaFRZyW5iyipof3kc vkxuZqBmXPRwIIb0STh3 LWFsaWduOiBsZWZ0 GuL1CZF6dTLaaJ8xeUxp ycvbsK0rEnu+QmlydGgg TWY4QNb6I9HsZpi8CEMl eXwkVI9wwSJgCAid Rl5fhByadGapMD3dRYCp hsyvz792SuOtj8vpUHTs fUCbFVodRUW6N56wt1G8 XKTjSLHlLFK8uIH1 rJ3bbOduqbvodJBnuRbt plMuhXolKOhdJMliN144 HBSsgWraHdPsGAa0M4Gk Ujn1YKMofTpqKZ6o oYOlGCrsWm9ulHtcmQsz XS2fTHQswimni970HbVg a4vfYEVkeDWjXZmiELN3 U71zo0E4ENHtYGWf WRX9rBW2hS7dlTtnuwdu bGVmdDsgdmVydGljYWwt RPmvZ286LAAogAfaErCf zDt7R3FaLxl5LBId pBqbJD9enWJtIFnmFt7h eWiwsNsbBT6tOWDidklc x755JxQkv6ilALHmfJWy MGyyKUQ6O35ct4Q7 VZVbMVSrYQF4sNP5hK0e bGlnbjogbGVmdDsgdmVy vVbePBosYGsxC723KEQj cDsnPlBhdGllbnQg FXfkDTd9T4LhJjfpfWH+ QC97ZPEyKT39aIQoqUXh m7xmrCi9ZrSsENXnELI4 yDshAAzrs5WfNFVn H27eeVRti0S0DDXnwLwh lGEhZgSxgDT4cI2bTJzq tbqdh1yixsjiJervl2cf pr43sI90T28wURnm ZHRoPSIzMCUiIHZhbGln aa9icK2cZy9+PGNvbCB3 xNO7pI2tDSVrAmY0PDge C988SpVirQCoSnka h9ikw4zrvJp5BqW3SPYr epSzbYuhZJT9p2CnVf56 J23nCOskTWVbXGHkKCXz DDXatRqunm5vbW7m Ii8+XMIkqBP9fHJ7sI5m WsUfStI1YGzbI273RdOg rHJiKmpeJ31kX6BejPJ+ WDPlRzm4GRJmkZik AR4tqOHyHVgzUe4qSHZ3 UuBcYbAaKCosL8ZaKXHc pmvanscxyTM6YBMaRONj rE83Hk5hcItyXAHh kUWHoS5rxykkr7qdwzzl AvJsGVIoQBn1SUs8CCNo nSieKtLbMIS8BaU3OXG8 sLMhjW0zcNtkuqxg pF6hZ9NpFAVipscwBb57 gL1nAtKmAqM2YFkyBxp+ APQQNBHTF9AfJZlVNfch JPaMES46R9GlKqd2 PBEjjTqoWW4jeOOxSAfg Vr5ydAyejMcuAB1aUZMf vkehIBWrkY1qTYAubCMt qYonRD2mMSUbzppa a336MsZoJJN7VQDqsTRm P3WxsE5rEtKtSUUeTSBy T2OncGXmBSgeA686XReu AtE2EALunoGzY2Pu LILibYloIwT7x1N3Fa1e YF3cHe2yKHQ1OW57CY95 fVHbl7O6pTU7E9RaGPPu gkdywvehvHT6ABEw KOMjhH22lQUzPAixTf9m y2Z8x038GEBfPVFygT11 Ln9aiEnbOEFoyHFXwP9a ehnkj6wecqsxHbBw FOUcPPx7YWq7GHQadAsi WiKjUUX9SyK9RNB1rGUp sL6ihSoetfzpxR0gAue+ FWZnBBQmnvF9O5Kx Iiy4ZSUqaUtkYB0pmTVv RWrsLf4dhKumxWrlFM1s CZXfwhvnZINygX8tATYk zHOlvZgnKT6mBYTc bvdqu715EiBfVPD8DUCx sZHoK5SpzU9zDeZuRZCj MBXbL8FuyXFiWQadW671 BIfwLwP6OAMemzZk Q8CmDSMlgDdgFzB7n6C5 Ze0DDOxBAW48EA21hSEl d1R3bPR8S5BpHKIlwlmf tcqahDR6TNYjCUOm aD87gGCdDPfzPe3hx5Z9 g833KONtWGSfpL78Sr3r vCxzBUDpkVOFhJ9oasiq k4stsrakWlRtBCNa KAk2UQv3DFEmmLifEwCf WME1FoH9EKW4oGXxpR6g qJssyuedwC8eCyu+T1A8 X5RhJafoxQZ+PC90 ISGtIS47lVYjfRSzq9kc jRx2UjWlCTIdTXG9nGjl LFxcj1OqZSSsW56unMTw f2F0VBMqsYatpUKn MfOvbLS7fX5sONshqpfd s0rcprvuTchvo6juiq09 sM01W47mPZngTGZtUOVq RJJuUJWeyXdvcj2s gM1lWt1+JGRkkUJ3gGK2 oG7rWkTpVzX8QGysD479 BqHzqPDvAyyqf5sox7xi yAi8UmNkEVPowrYy qTdpDUJ1v9AhUo29O30p IHdpZHRoPSIyMCUiIHZh fQhfnk1bcY3iIa8+PC9j y5wksm70jV81lJZ+ DSYzYUB6nCxrZRacDEDz sH0rROxeGgK1ZAGpUqSw xW25bAHcIFjxCq0fiSjr nZvvQK2eCDPxzfnu w181GqJvo2zaSUUaaTDx SGkjNYO9Y40tn7Y2WPCj TOPiIPP3zCJ5wN4nkVey bjogbGVmdDsgdmVy wEjrLLmlPBoaH686JCBo lBfwPcBwzPIpP3nowaVG EV1tPnxuxKY+PHRkIHN0 xZzbWLzjMTZekS6r AOMyM5m7HkOdQoQ3JAcl L8VmfuK6JGIjdYHrNQNo oQJUaB2yejfjh9qvgsli PkKvXZYnDHt2ATg9 AFWueYngGiAnVYY9KfJ5 OTS4rRQjnE1mdRpzmzbj gC9dLir+RklOOjwvdGQ+ KLEmEYZ1yKfmINdj RZEmnD2wADAyV8i4OaUi HxI3ZQeiP5YxjzZ2BKOq zEEnNPQxuHEOkK9hkhke v4mpzfuwGmUpUSHn HPb0ABa6KPGqqIsoYoQm YQX0JzN6YUV5gSPjpB6h xDktucybqW2xIyy+TVJO OjwvdGQ+PHRkIHN0 tKchFXhxASWtaQ7cMNYy V3u3PtLyLhN3HGdpU2Yz czH4NQKxgTTjRYQxoRCS jC7xnjzag4ilrpvy MpIjBIXhWIi4RLg5ISAw lWnaUoMbWRD7VxO0DZY4 eAJdyD4gmSqdadzrkO2k Oyc+MLR5TJK4HU16 OX70H7EyWuagbZWtaPO+ PHRhYmxlIHdpZHRoPScx APZgCjKmeBejTG3eEp4z ZGVyLWNvbGxhcHNl OiB (more content not included)... [facility] Coding Summaryon 03-29-2024 Coding Summary HTMLBase 64 FoxlpomlBVg6cHs+PGhl YWQ+VT1WPVYnI09puKJt fP7mS7IWWFpYLzqsMXNN OWgBKcIouoViHE9xwONl ZXJu IC8+GX1tHEOnEtqpkJDr y5X8kZB7U15nka2lXReo vKZ4ICHjYtAdaoddj5cc pIs8GBidKwbsMjGw EVFtoL01KXS5vL00Qt15 rTZcdAAbn7keeDw5ZiJv WKSoXXU1xDhcBRfqw7Aj RIUxR51uaPLsl6J9 IGNvbGxhcHNlOyBlbXB0 fF3fVUjgomwke5jcidwf Lgf7gn81kOZqe2R8uEZ6 F0KfxsB9SNQyyWZv KypfeLNAcT0ctqudd6xp yodwRrMeCPJgHVp5LNe1 HIHhcBxnLiTtIU65BQT0 EBWpweFlO5QoGCOk xXckOwF8v1O1Ns0SV6LE VvvpA4SDJZDNLDjbuVE+ EH29um19K4ZtRsctSbs8 UIPpFHU4dOH9iK3u MNBcMHbbn7U3jCP1R4Lg zyIygi1ku7kmMSJmPAeq X86lbCOfr2E4XZNywBX6 WJSbtXbcGrGvfU67 Oyc+FHJtbNzrx5MjHcps q5ico3jrrBm3KiyfMRMp jpMmyDbbMKZ7t2SwZm4l ZEKnnFR1kWS0fQ4l YnOkQtO9FUfyO286XeNx kHOrHfavJ67iE4OcrRP+ WLGxYpk3KAXjkWrjGI3t C4GxEIFszcqvgNFf zVohUQ2dESOypppeTACr lD5zUBIsZ1z1VqSrUeA0 ADhqD5KaTFTuhexdLf75 wC9dFeSpBbE4LBvj D3LafgA0HWAdlIItBXkg LSO7C35um4M5QXPvWJSq AMM0wII2eB4cfDmwlzjv bGVmdDsgdmVydGlj FMimLLbdS483XRCypSuh PkNvZGluZyBEYXRlOiAg MDcvMTAvMjAyNDwvdGQ+ NUMoZDS0qKpzJPYz pKTgVTnlPl4coFpaeBwz SL2kEGKzaeovWHVnhJ7p FOWhpAHzzIlsBQ1zWYMt aaser275HcRpZXK7 MCHkiTOkK5SuxG8bHiKc AREeIETsD4QraENlFVqz M503EPyrLvN8HRJcjcIt D3XtEBKzuPabXgU1 r1X8Ro6Wd2FzszkvG3Sw xCMkAiYeJyoyOGq0D4Yz PjwvdHI+SE87HHUuAS30 TDr5NTS6yNwxMDhq MPHwM9LpgM6jJvIrYTZz ZGRkOyc+PHRhYmxlIHdp ZHRoPScxMDAlJyBzdHls NY9pWt9rQKWnSDYg bPrhmPSvHoCwn1bmXNMn IUcjWO5sdXdvZ5UnoQY1 JEZgj6d9Wa14S33lG7Nk dXA+PKTavNZ3nZF2 kP4iEkJaZaO9EDbwW579 AxDkbBIuPlnrq7zeo9st eQp5UdL4PLGwwlGugEqd SLP0s9OjZo12X54c IHdpZHRoPSIxNSUiIHZh lVvski3pbX3sLf9+PGNv nMK0vGZ5bL9vJuQzCmA0 VBwoO710ZaDzdPUm Iugkv7joj4jprNl7QcTh QZJubaFsbNhjILJ4y8Uo Sb02J1CxkXjfi7NhVuv8 sw98dOQoh7J7iSD9 V6BbLXIoqgcncYLijNcd SC6uNHRamcjgDGBopP0a DUSkD3k9HcZbDnG3DTrf C5FogoU4QDOvcBXk PTXpcKTToI5yhszvn9bn hkncDgXyVSBwFHx9TQj2 PSOcmFryCyQzKMF2LrM2 KMN0zMNqgP4trUrp gwtkuW4wFxq+BBB8pZDd lNPMZF7qVimfwWT+PHRk NSU0gLwvZVtmMIMuiA7u YDAdW1e8AuPgSaH8 NLatK3QbztH1KUDvvGQf ZSAfcGDFeZ7ikfokj1rr atnzIcKuIPCnRZe5JHh7 LWFsaWduOiBsZWZ0 PaH9QYK3gXXtkH3ndWoq ycmasE5eIme+QmlydGgg TCJ1ZUb7P5WqJkb8ZEEl yUxkJX1bjEUwWNep Va1dfKsawAufFD9aLXMd pojim904PoGmg6axCFEk fFHfCLbsEHL8F52jl4Q4 TUTiDSKlAZH4yRC8 kR2hmBagkudteJNgcRxd ajSkqNapXKxsZMxkB918 CCHzuHqiBxVtHPr0L1Ez Ydu4WLBqfSnnQR8v xWErGVsxKd5viRbhpBbt VT4dZVGdbvchv648GtLw b6rqOMAugWJmGIjjBPE5 H56ij9Q1OKTcPVUx VBJ4yFN7lN4rqBqlrpxz bGVmdDsgdmVydGljYWwt XHniO098OVBddZzbMjKm yHc9W0GaGdj4LCPn pLtgAW1alFTvLEvaQp1z wLaigDmtGW9vUPUcdpbt b268CcEwq6ngVJFliFPc NNqqQIK3O38js7R5 VUSdJOOaXIV8oNC9nX1e bGlnbjogbGVmdDsgdmVy sEzoHTwsXHjiJ586BTFp cDsnPlBhdGllbnQg CXjqZUr0P1EhYklvyEK+ BE39PLXyJA77eXHozHJf a0nqvUw3EpVdFXGzZUV6 tOhfAYsyx6AjWMMt D37qnGXrp9A7SRIyaAhb vXNjFfLojBJ6iU9oKMyn cvscs7ozyrliQuked7oz dz07yP97S36vSVhd ZHRoPSIzMCUiIHZhbGln ah5ngK7jGo9+PGNvbCB3 vLK7hA0kUDQlAsO9MDdw I095MlZssPDoVnnm o6fmy2ecbAd8BsK9PHCw bsGzsWztPUV4k6JmAu32 E88rDOeyTDJuORUaJVZp UEIgyTswyj4ydA1i Ii8+GWInmJT7eHG4aJ1d HjJcQuQ9UHhlT836KqKz eZJlXhbpY72fL5PhmWT+ LKMyYhl6JEDgeXjz HL3gcSBvZHsyJz5iKEZ7 XyMpHjFhUNbgQ7TiJVLp cltqyyddsFQ8TETgJZDl tB20Fw8wdOiwVBId qXNHtJ6acjwhv2jakqjz EzNjDHMcCWu1UBu8VPZv yLlnLwPsSRR9FyK3XMM9 lUMhyV0ovTwgdios xS0sI1OvPWGlmitzBs98 yY7nWuUeBmA5RLrfEhu+ DKEJDKNLJ0PxVDsUUifk ITxXNR38Q1AhMvl8 OQEugHfbPX9aeHOdTSns Pa7ypQhgiRwzEF3fNBFc cxuyZFLpsO4uPXEhcZKw yKonRP0yTSPojnlv f525BjKuLFA7WZJekMWs X7ZfwY2xQhEsLQRbUTOw Q1JfyRMtVJmeQ135RQsq ZjI4EBKbmaGdP0Qx AAQlvSezBrA6y7A9Vu1m BR0nCg4dMWS8MC62BS22 pMHij1B7xIL1E9YiEHGs tejveosvnHK7PBPa HZTsjU64pEQkAVybAy9g b4W0i683DFPvXMOseV61 Vg1lzGdlBVBtnCVHtD9d urcbo1piwpdpDnZg ZIMxEEa6GOt1AMVfwRgi RyAeSIZ4IhP7RDI6qBIa sP9jnCnrempcpO4bYld+ IBDmUSCubyU0O2Ms Gwt1ASFplAelTC8keAUj LRjyJc4gaCvmpJubCS3b ODJgmgbbQNApxJ4eSASz hEAyiUqgQV5nFUHa alqmp611AbDtONX4WYMx xVKeE0IneV2qOjHpQSRl XCXaX8PkeOJpZSsaU026 TKqkEyO5DMKkzwBc T7HeQAXilMkfSzV9g4E7 Eb2QGHvVFY70RF44iFPx f1V7eXD8K8UySBIoelkq onrveFI2WIRlXESh xL50pFRfBSjoWx3vy9H6 p766BSQnLKXnfD14Hk1k zZduSKZteJFIgB6pjwiu w3mohgqbDwCsZZNd LIs0JHj6TJOneLlyYeKq NIS6BnQ4DRZ3yCVvrP3f aBkwbldmxU5oImg+RW1l janlgnO3NT64GO09 U9CzHihkdFEshKN+PHRh YmxlIHdpZHRoPScxMDAl QeMtwNcbKW1xZh3cVZYw LWNvbGxhcHNlOiBj s0oxHIQrVAlaOO9uiRwo N6RrpEK0TIWoy5v7Kk35 F96yS9QniJD+PGNvbCB3 vMD4cI5uSlWnNiU9 PLmlT204LmPykMIaLelb x8bwo2prtIk9QbGzCEHv cxQjvUadLEW2r4IjDn20 P54tVQmjEAReNZWn VJAkUAKzvQuexq5hqN1d Ii8+XFLqaLN8fDS8oV6d ZjXmZuN2DZevB145LaXo dATtJcwwT20kW5Va dXA+WXHqOlc5TSTskJas RX6peXPnVRycZc1qBHU9 ZsWoTtWjRNteE1NfMLRw wlegznctgQN9CDEz AWVgxE08So2psJqcVr1s EKBoMJK9KBMvxTEtW1Mm nG7oGaGlRTVpPJCeA3Tq rKIvXPvnV697RReh AlW4ZBRrfpXuH6TbPKBs aZviEzX0e2R1Ia7VmEua cXHtMN3vVwRiDYw8D3Wy Nkg0BDNgnAveON5i vDXbXUdcPe1qvQchqQio SN1cQMSqinerz940XqHw v4qzHEYlvLXpOYxySFY5 B83ao3U9IGQoXFRd XZY6pHU7fC5ogKlwnrnw bGVmdDsgdmVydGljYWwt YEjbK012BEKauOfvGtOU Mjy9L4XbRjf8EMFn kUxdHP6ryOAoLMwxLq8v sAxcuKepQG3uBLRkrhqx g077IrDvn7xeEFWexBBz QJlyBLQ1D50xd4P0 RCYwURHmFIM8lBG7rH5f bGlnbjogbGVmdDsgdmVy wDvrGApbNQjjM164LUMv zSsjEh7RIdz8F7Wk Giy7RPAwtCceST9qfODu WUbiCl8nhTpwlZgxEZ6s JJSpfpoji529JuHop0uk IDEwcHQgVGltZXM7 A73uc2L7XZFaNFExNPZ1 zPA7cN3idInoynodtOJu dDsgdmVydGljYWwtYWxp W607CQEqlQyaHgFt eWVyOjwvdGQ+AI69cj28 Y9XmHyxbYxj0SMHiQOA9 bBX1uW6gPNWdPCnrl2N1 cOL5E6XbrpJpjv7u b2x (more content not included)... [facility] US Kidney/Bladder Completeon 03-21-2024 US [...] MD 03/25/24 9:19 am Technologist: SHAY BRO [facility] Provider Orderson 03-20-2024 Provider Orders [id number] #[id number] [facility] .Auto Diff 103-19-2024 Auto [place] % 13 % High 10-01 [facility] Comment on above: Performed By: #### 1 [id number], [id number], [id number], [id number], [id number] ####[facility] (DEFAULT)[address] [place] [address] Baso Abs# 0.1 x10 Normal 0.0-0.2 [facility] Comment on above: Performed By: #### 1 [id number], [id number], [id number], [id number], [id number] ####[facility] (DEFAULT)[address] [place] [address] Basophils/100 WBC (Bld) 1.4 % Normal 0.2-2.0 [facility] Comment on above: Performed By: #### 1 [id number], [id number] ####[facility] (DEFAULT)[address] [place] [address] Eos Abs# 0.1 x10 Normal 0.0-0.4 [facility] Comment on above: Performed By: #### 1 [id number], [id number], [id number], [id number], [id number] ####[facility] (DEFAULT)[address] [place] [address] 36005 Eosinophils/100 WBC (Bld) 1.8 % Normal 0.9-4.0 [facility] Comment on above: Performed By: #### 1 [id number], [id number], [id number], [id number], [id number] ####[facility] (DEFAULT)[address] [place] [address] 15471 Lymph Abs# 1.0 x10 Low 1.3-2.9 [facility] Comment on above: Performed By: #### 1 [id number], [id number], [id number], [id number], [id number] ####[facility] (DEFAULT)[address] [place] [address] 83854 Lymphocytes/100 WBC (Bld) 19 % Normal 14-48 [facility] Comment on above: Performed By: #### 1 [id number], [id number], [id number], [id number], [id number] ####[facility] (DEFAULT)[address] [place] [address] [place] Abs# 0.6 x10 Normal 0.0-0.8 [facility] Comment on above: Performed By: #### 1 [id number], [id number], [id number], [id number], [id number] ####[facility] (DEFAULT)[address] [place] [address] 96897 Neut Abs# 3.3 x10 Normal 1.5-9.2 [facility] Comment on above: Performed By: #### 1 [id number], [id number], [id number], [id number], [id number] ####[facility] (DEFAULT)[address] [place] [address] Neutrophils/100 WBC (Bld) 65 % Normal 44-88 [facility] Comment on above: Performed By: #### 1 [id number], [id number], [id number], [id number], [id number] ####[facility] (DEFAULT)[address] [place] [address] 51943 BMP Standardon 03-19-2024 eGFR Non AA 58 mL/min/1.73m2 Invalid Interpretation Code [facility] Comment on above: Performed By: #### 1 [id number], [id number], [id number], [id number], [id number] ####[facility] (DEFAULT)[address] [place] [address] eGFR AA >60 Invalid Interpretation Code [facility] Comment on above: Performed By: #### 1 [id number], [id number], [id number], [id number], [id number] ####[facility] (DEFAULT)[address] [place] [address] 05979 Anion gap [Moles/Vol] 12.6 mmol/L Normal 5.0-19.0 [facility] [facility] Comment on above: Performed By: #### 1 [id number], [id number], [id number], [id number], [id number] ####[facility] (DEFAULT)[address] [place] [address] 91621 Calcium [Mass/Vol] 9.3 mg/dL Normal 8.9-10.3 [facility] Comment on above: Performed By: #### 1 [id number], [id number], [id number], [id number], [id number] ####[facility] (DEFAULT)[address] [place] [address] 30875 Chloride [Moles/Vol] 105 mmol/L Normal 101-111 [facility] Comment on above: Performed By: #### 1 [id number], [id number], 6785630, [id number], [id number] ####[facility] (DEFAULT)[address] [place] [address] 46337 CO2 [Moles/Vol] 26 mmol/L Normal 21-32 [facility] Comment on above: Performed By: #### 1 [id number], [id number], 7078953, [id number], [id number] ####[facility] (DEFAULT)[address] [place] [address] 08638 Creatinine [Mass/Vol] 1.28 mg/dL Normal 0.90-1.30 [facility] Comment on above: Performed By: #### 1 [id number], [id number], 0081478, [id number], [id number] ####[facility] (DEFAULT)[address] [place] [address] 63562 Glucose [Mass/Vol] 104.0 mg/dL Normal 74.0-118.0 [facility] Comment on above: Performed By: #### 1 [id number], [id number], 3011136, [id number], [id number] ####[facility] (DEFAULT)[address] [place] [address] 04816 Osmolality 280 mOsm/L Invalid Interpretation Code [facility] Comment on above: Performed By: #### 1 [id number], [id number], 0125632, [id number], [id number] ####[facility] (DEFAULT)[address] [place] [address] 86215 Potassium [Moles/Vol] 3.6 mmol/L Normal 3.6-5.1 [facility] Comment on above: Performed By: #### 1 [id number], [id number], 0423675, [id number], 52323620 ####[facility] (DEFAULT)[address] [place] [address] 22106 Sodium [Moles/Vol] 140.0 mmol/L Normal 136.0-144.0 [facility] Comment on above: Performed By: #### 1 [id number], [id number], 3118551, [id number], [id number] ####[facility] (DEFAULT)[address] [place] [address] Urea nitrogen [Mass/Vol] 15 mg/dL Normal 8-26 [facility] Comment on above: Performed By: #### 1 [id number], [id number], 5405298, 8228552343, [id number] ####[facility] (DEFAULT)[address] [place] [address] Urea nitrogen/Creatinine [Mass ratio] 11.7 mg/mg Normal 4.6-16.2 [facility] Comment on above: Performed By: #### 1 [id number], [id number], 1190293, 1978102879, 68580836 ####[facility] (DEFAULT)[address] [place] [address] CBC w/ Auto Diffon 4 Erythrocyte distribution width (RBC) [Ratio] 20.1 % High 11.5-15.0 [facility] Comment on above: Performed By: #### 1 [id number], 2973575103, 1759818, 8807231214, 53139119 ####[facility] (DEFAULT)[address] [place] [address] Hematocrit (Bld) [Volume fraction] 34.7 % Low 34.8-51.9 [facility] Comment on above: Performed By: #### 1 [id number], [id number], 2731728, 8740158837, 35455275 ####[facility] (DEFAULT)[address] [place] [address] Hemoglobin (Bld) [Mass/Vol] 11.2 g/dL Low 11.8-17.7 [facility] Comment on above: Performed By: #### 1 [id number], [id number], 8271616, 7840735782, 80846547 ####[facility] (DEFAULT)[address] [place] [address] Man Diff? Auto Invalid Interpretation Code [facility] Comment on above: Performed By: #### 1 [id number], [id number], 3908172, 2358136461, 02648771 ####[facility] (DEFAULT)[address] [place] [address] MCH (RBC) [Entitic mass] 30 pg Normal 24-34 [facility] Comment on above: Performed By: #### 1 [id number], [id number], 8297162, 8178403086, 84771975 ####[facility] (DEFAULT)[address] [place] [address] MCHC (RBC) [Mass/Vol] 32 g/dL Normal 26-37 [facility] Comment on above: Performed By: #### 1 [id number], [id number], 9076923, 7272640569, 30881452 ####[facility] (DEFAULT)[address] [place] [address] MCV (RBC) [Entitic vol] 93 fL Normal 81-100 [facility] Comment on above: Performed By: #### 1 [id number], [id number], 3140374, 9146499285, 13255090 ####[facility] (DEFAULT)[address] [place] [address] Platelet 387 x10 Normal 138-427 [facility] Comment on above: Performed By: #### 1 [id number], 9975797211, 0994983, 7584781761, 76286415 ####[facility] (DEFAULT)[address] [place] [address] Platelet mean volume (Bld) [Entitic vol] 8.2 fL Normal 6.3-10.2 [facility] Comment on above: Performed By: #### 1 [id number], 7783815761, 4974009, 1760861556, 27533743 ####[facility] (DEFAULT)[address] [place] [address] RBC 3.73 x10 Normal 3.70-5.30 [facility] Comment on above: Performed By: #### 1 [id number], 2241552374, 2828888, 6271025777, 58629871 ####[facility] (DEFAULT)[address] [place] [address] WBC 5.1 x10 Normal 3.5-10.5 [facility] Comment on above: Performed By: #### 1 [id number], 9843103470, 0887783, 8068691276, 45406966 ####[facility] (DEFAULT)[address] [place] [address] CT Abdomen/Pelvis w/o Contra ston 03-19-2024 CT [...] MD 03/19/24 8:33 pm Technologist: Wero SHELLEY [facility] ED Clinical Summaryon 2023 ED Clinical Summary [facility] Emergency Department [address] [place] [address]148 ED Clinical Summary PERSON INFORMATION Name: SANJEEV BLACKBURN Age: 58 Years Sex: MALE : 1965 MRN: Acct#: Visit Reason: Flank pain; LEFT FLANK PAIN Arrival: 03/19/2024 19:34:59 Discharge: 03/19/2024 22:14:00 LOS: 000 02:40 Check In: 03/19/2024 19:34:59 Checkout:03/19/2024 22:14:00 Address: [address] [place] [address] PCP: Dev Perla DO PROVIDER INFORMATION Provider Role Assigned Unassigned Daysi Silva PA-C ED PA 03/19/2024 19:37:54 Leonela Aguilar VISUALIZER Nurse 03/19/2024 19:40:29 VITALS INFORMATION Vital Sign [...] Home PATIENT EDUCATION INFORMATION Instructions: Kidney Stones, [id number] Follow-Up: With: Address: When: Missael Schaefer MD [address] [place] [address] [place] [address] Within 2 to 4 days With: Address: When: Dev Perla DO [address] [place] [address] [place] [address] Within 3 to 5 days DIAGNOSIS: 1:Ureterolithiasis Patient Understands: Yes - Patient/family/careg iver verbalizes understanding of instructions given Comment: [facility] ED Patient Summaryon 024 ED Patient Summary [facility] Emergency Department [address] [place] [address] PATIENT DISCHARGE INSTRUCTIONS Patient Information Name: SANJEEV BLACKBURN Age: 58 Years Date of : 1965 Reason For Visit: Flank pain; LEFT FLANK PAIN Arrival Time: 03/19/2024 19:34:59 Primary Care Physician: Dev Perla DO Attending Physician: Tank Lazcano MD Comment: Visit Diagnosis: Diagnoses This Visit Flank pain (493159710) Ureterolithiasis (N20.1) The Pharmacy at [facility] is open Wednesday through Wednesday from [...] contact the [facility] 12/04 Crisis Hotline -Text 2ECMD ml 415455. If you received any narcotics, sedation, or [...] documents With: Address: When: Missael Schaefer MD [address] [place] [address] [place] [address] Within 2 to 4 days With: Address: When: Dev Perla DO [address] [place] [address] [place] [address] Within 3 to 5 days Medication Information: The exam and treatment you received today in the [facility] Emergency Department were for an urgent problem and are not intended as complete care. It is important for you to follow up with a doctor, nurse practitioner, or physician?s assistant manager airside operations for ongoing care. If your symptoms become [...] so we can reach you if necessary. [facility] has provided you with a complete list of medications post discharge. Please inform your primary substance abuse counselor/provider of your visit and for further instruction on these medications. Any specific questions regarding your chronic medications and dosages should be discussed with your primary care physician(s) and/or pharmacist. New Medications [address], [address] [place] [address] [id number], [phone] acetaminophen-hydroc odone (acetaminophen-hydro codone 325 mg-5 mg [...] kg Body Ma (more content not included)... [facility] Extra Redon 03-19-2024 Tube Collected Yes Invalid Interpretation Code [facility] Comment on above: Performed By: #### 1 [id number], [id number], 7634311, [id number], [id number] ####[facility] (DEFAULT)[address] [place] [address] UA [id number] 03-19-2024 UA Bacteria Trace [facility] Comment on above: Order Comment: Urina lysis Microscopic order added on by [employer] Rules system. Performed By: #### 1 [id number], [id number] ####[facility] (DEFAULT)[address] [place] [address] UA RBC 3-5 [facility] Comment on above: Order Comment: Urina lysis Microscopic order added on by [employer] system. Performed By: #### 1 [id number], [id number] ####[facility] (DEFAULT)[address] [place] [address] UA Squam Epi Rare [facility] Comment on above: Order Comment: Urina lysis Microscopic order added on by [employer] system. Performed By: #### 1 [id number], [id number] ####[facility] (DEFAULT)[address] [place] [address] UA WBC 0-2 [facility] Comment on above: Order Comment: Urina lysis Microscopic order added on by [employer] system. Performed By: #### 1 [id number], [id number] ####[facility] (DEFAULT)[address] [place] [address] UA w Culture if Ind Standard on 03-19-2024 Breakpoint UA Normal [facility] Comment on above: Performed By: #### 1 [id number], [id number] ####[facility] (DEFAULT)[address] [place] [address] 19006 Color (U) Yellow Normal [facility] Comment on above: Performed By: #### 1 [id number], [id number] ####[facility] (DEFAULT)[address] [place] [address] Culture? Not Indicated Invalid Interpretation Code [facility] Comment on above: Result Comment: Resu lt created by rule GL_MAGR_ADD_UA_CULT Result created by rule GL_MAGR_ADD_UA_CULT Result created by rule GL_MAGR_ADD_UA_CULT1 Performed By: #### 1 [id number], [id number] ####[facility] (DEFAULT)[address] [place] [address] Glucose (U) [Mass/Vol] Negative [facility] Comment on above: Performed By: #### 1 [id number], [id number] ####[facility] (DEFAULT)[address] [place] [address] Ketones Ql (U) Negative [facility] Comment on above: Performed By: #### 1 [id number], [id number] ####[facility] (DEFAULT)[address] [place] [address] 86391 Micro? Indicated Invalid Interpretation Code [facility] Comment on above: Result Comment: Resu lt created by rule GL_MAGR_ADD_UA_MICRO Performed By: #### 1 [id number], [id number] ####[facility] (DEFAULT)[address] [place] [address] 33882 UA Bilirubin Negative Normal [facility] Comment on above: Performed By: #### 1 [id number], [id number] ####[facility] (DEFAULT)[address] [place] [address] 35687 UA Blood SMALL Abnormal NEGATIVE [facility] Comment on above: Performed By: #### 1 [id number], [id number] ####[facility] (DEFAULT)[address] [place] [address] 22943 UA Clarity CLEAR Normal CLEAR [facility] Comment on above: Performed By: #### 1 [id number], [id number] ####[facility] (DEFAULT)[address] [place] [address] 02651 UA Leuk Est Negative Normal NEGATIVE [facility] Comment on above: Performed By: #### 1 [id number], [id number] ####[facility] (DEFAULT)[address] [place] [address] 18264 UA Nitrite Negative Normal NEGATIVE [facility] Comment on above: Performed By: #### 1 [id number], [id number] ####[facility] (DEFAULT)[address] [place] [address] 63656 UA pH 6.0 Normal 5-8 [facility] Comment on above: Performed By: #### 1 [id number], [id number] ####[facility] (DEFAULT)[address] [place] [address] UA Protein Negative Normal NEGATIVE [facility] Comment on above: Performed By: #### 1 [id number], [id number] ####[facility] (DEFAULT)[address] [place] [address] 83185 UA Spec Grav 1.025 Normal 1.001-1.035 [facility] Comment on above: Performed By: #### 1 [id number], [id number] ####[facility] (DEFAULT)[address] [place] [address] 03163 UA Urobilinogen 0.2 mg/dL Normal 0.2-1.0 [facility] Comment on above: Performed By: #### 1 [id number], [id number] ####[facility] (DEFAULT)[address] [place] [address] Urine Source Clean Catch Normal [facility] Comment on above: Performed By: #### 1 [id number], [id number] ####[facility] (DEFAULT)[address] [place] [address] Surgical Pathology Reporton 08-16-2023 Surgical Pathology Report (NOTE) [id number] [facility] ANATOMIC PATHOLOGY [address] [place] [address]. [place], [place] [address] SURGICAL PATHOLOGY CONSULTATION Patient Name: SANJEEV BLACKBURN MR#: [id number] Specimen #[id number] Procedures/Addenda MOLECULAR PATHOLOGY REPORT Date Ordered: 09/16/2023 Status: Signed Out Date Complete: 09/16/2023 By: Obie Marie M.D. Date Reported: 09/16/2023 INTERPRETATION AT THE REQUEST OF DR. MISSAEL SCHAEFER, BLOCK D1 WAS SENT TO [facility] FOR DECIPHER PROSTATE BIOPSY GENOMIC GREEN PIPEFITTER TESTING. THE RESULTS ARE FOLLOWS: GENOMIC RISK IS: LOW RISK OF METASTASIS WITH RT OR RP: 5 YEAR: 0.5% 10 YEAR: 1.1% RISK OF PROSTATE CANCER MORTALITY WITH RT OR RP: 17 YEAR: 1.2% RISK OF ADVERSE PATHOLOGY AT RP: 18.3% PLEASE SEE [facility]' COMPLETE REPORT ([id number]) FOR DETAILS. Case report, all slides and [...] for racemase. Controls are adequate. Normal [facility] Vital Signs Date Time Vital Sign Value Performing Clinician Neri mcintosh 06-15-2024 14:59-0400 Body height 180.3 cm [employer] Work Phone: [facility] [employer] 06-15-2024 14:59-0400 Body mass index (BMI) [Ratio] 34.45 kg/m2 [employer] Work Phone: [facility] [employer] 06-15-2024 14:59-0400 Body weight 112.04 kg [employer] Work Phone: [facility] [employer] 05-18-2024 14:31-0400 Body height 180.3 cm [employer] Phone: [facility] [employer] 05-18-2024 14:31-0400 Body mass index (BMI) [Ratio] 34.17 kg/m2 [employer] Work Phone: [facility] [employer] 05-18-2024 14:31-0400 Body weight 111.13 kg [employer] Phone: [facility] Healthcare Encounters Encounter Date Encounter Type Care Provider Facility Start: 08-28-2024 End: 08-28-2024 Postop follow up visit related to original px Dustin Zuniga COMPUTING SERVICES DIRECTOR Work Phone: [facility] Comment on above: S/P carpal tunnel re lease (Primary Dx); Right wrist pain; Left wrist pain Start: 08-28-2024 End: 08-28-2024 ambulatory DUSTIN ZUNIGA Not Available Start: 08-28-2024 End: 08-28-2024 Bamboo flowsheet Dustin Zuniga COMPUTING SERVICES DIRECTOR Work Phone: [facility] Start: 08-28-2024 End: 08-28-2024 Bamboo flowsheet Dustin Zuniga COMPUTING SERVICES DIRECTOR Work Phone: [facility] Start: 08-03-2024 End: 08-03-2024 Postop follow up visit related to original px Dustin T Zuniga COMPUTING SERVICES DIRECTOR Work Phone: [facility] Comment on above: S/P carpal tunnel re lease (Primary Dx) Start: 08-03-2024 End: 08-03-2024 ambulatory DUSTIN ZUNIGA Not Available Start: 08-03-2024 End: 08-03-2024 Bamboo flowsheet Dustin Zuniga COMPUTING SERVICES DIRECTOR Work Phone: [facility] Start: 08-03-2024 End: 08-03-2024 Bamboo flowsheet Dustin Zuniga COMPUTING SERVICES DIRECTOR Work Phone: [facility] Start: 07-31-2024 End: 08-08-2024 Telephone encounter Janine Israel DO Work Phone: [facility] Start: 07-24-2024 End: 07-24-2024 ambulatory [facility] Facility:[facility] Start: 07-21-2024 End: 07-23-2024 Refill Dustin Zuniga COMPUTING SERVICES DIRECTOR Work Phone: [facility] Comment on above: S/P carpal tunnel re lease (Primary Dx) Start: 07-20-2024 End: 07-20-2024 ambulatory DUSTIN ZUNIGA Not Available Start: 07-20-2024 End: 07-20-2024 Postop follow up visit related to original px Dustin Zuniga COMPUTING SERVICES DIRECTOR Work Phone: [facility] Comment on above: Right carpal tunnel syndrome (Primary Dx); Right wrist pain; S/P carpal tunnel release Start: 07-20-2024 End: 07-20-2024 Bamboo flowsrocio Zuniga COMPUTING SERVICES DIRECTOR Work Phone: [facility] Start: 07-20-2024 End: 07-20-2024 Bamboo flowsrocio Zuniga COMPUTING SERVICES DIRECTOR Work Phone: [facility] Start: 07-10-2024 End: 07-10-2024 ambulatory [facility] Facility:[facility] Start: 07-07-2024 End: 07-07-2024 Refill Dustin Zuniga COMPUTING SERVICES DIRECTOR Work Phone: [facility] Comment on above: Post-operative pain (Primary Dx) Start: 06-15-2024 End: 06-15-2024 ambulatory JANINE ISRAEL Not Available Start: 06-15-2024 End: 06-15-2024 Office outpatient visit 25 minutes Janine Israel DO Work Phone: [facility] Comment on above: Carpal tunnel syndro me on left (Primary Dx); Left wrist pain Start: 06-15-2024 End: 06-15-2024 Bamboo flowsheet Janine Israel DO Work Phone: [facility] Start: 06-15-2024 End: 06-15-2024 Bamboo flowsheet Janine Israel DO Work Phone: [facility] Start: 06-01-2024 End: 06-01-2024 ambulatory [facility] Facility:[facility] Start: 05-18-2024 End: 05-18-2024 ambulatory JANINE ISRAEL Not Available Start: 05-18-2024 End: 05-18-2024 Bamboo flowsheet Janine Israel DO Work Phone: [facility] Start: 05-18-2024 End: 05-18-2024 Bamboo flowsheet Janine Israel DO Work Phone: [facility] Start: 05-18-2024 End: 05-18-2024 Office outpatient new 30 minutes Janine Irsael DO Work Phone: [facility] Comment on above: Bilateral carpal idalmis lorin syndrome (Primary Dx) Start: 04-26-2024 End: 04-26-2024 ambulatory [facility] Facility:[facility] Start: 03-21-2024 End: 03-21-2024 ambulatory [facility] Facility:[facility] Start: 03-19-2024 End: 03-19-2024 Emergency department patient visit [facility] Facility:[facility] Start: 08-16-2023 End: 08-16-2023 ambulatory [facility] Start: 12-01-2022 ambulatory JAIR CARPENTER Facilit y:H1 Start: 07-16-2022 ambulatory [facility] Faci lity:H1 Start: 01-28-2022 ambulatory [facility] Faci lity:H1 Start: 08-28-2017 End: 08-28-2017 Emergency department patient visit DEV PERLA [facility] Start: 03-02-2017 End: 03-03-2017 Ambulatory DEFAULT PHYSICIAN Facility:[facility] Procedures Date Procedure Procedure Detail Performing Clinician History of decompres armand of median nerve S/P carpal tunnel release Dustin Zuniga COMPUTING SERVICES DIRECTOR Work Phone: History of decompres armand of median nerve S/P carpal tunnel release Dustin Zuniga COMPUTING SERVICES DIRECTOR Work Phone: History of decompres armand of median nerve S/P carpal tunnel release Dustin Zuniga COMPUTING SERVICES DIRECTOR Work Phone: History of decompres armand of median nerve S/P carpal tunnel release Dustin Zuniga COMPUTING SERVICES DIRECTOR Work Phone: Plan of Treatment Date Care Activity Detail Author Start: 10-09-2024 End: 10-09-2024 Patient encounter procedure 10/09/2024 3:00 PM EST Office Visit [facility] [address] [place] [address] Dustin Zuniga NP [address] [place], [place] [id number] [facility] Start: 08-28-2024 End: 08-28-2024 Patient encounter procedure [facility] Comment on above: Arrived Start: 08-03-2024 End: 08-03-2024 Patient encounter procedure 08/03/2024 2:30 PM EST Office Visit [facility] [address] [place] [address] Dustin Zuniga NP [address] [place] [address] [facility] Start: 07-24-2024 End: 07-24-2024 Patient encounter procedure 07/24/2024 10:30 AM EST Procedure Visit [facility] Janine Israel, DO [address] [place] [address] [place] [address] [facility] Start: 07-20-2024 End: 07-20-2024 Patient encounter procedure 07/20/2024 2:45 PM EDT Office Visit [facility] [address] [place] [id number] Janine Israel, DO [address] [place] [address] [facility] Start: 07-18-2024 End: 07-18-2024 Patient encounter procedure 07/18/2024 2:30 PM EDT Office Visit [facility] [address] [place] [id number] Janine Israel, DO [address] [place] [address] [facility] Start: 07-10-2024 End: 07-10-2024 Patient encounter procedure 07/10/2024 9:30 AM EDT Procedure Visit [facility] Janine Israel, DO [address] [place] [address] [facility] Start: 05-21-2024 Influenza vaccination Influenza Vacc ine (#1) [facility] Healthcare Start: 1965 [facility] Immunization Date Immunization Notes Care Provider Fa [facility] 06-17-2023 influenza, injectabl e, quadrivalent, preservative free Janine Israel DO Work Phone: [facility] 06-17-2023 influenza virus vacc ine, unspecified formulation Janine Israel DO Work Phone: [facility] 06-23-2022 influenza, injectabl e, quadrivalent, preservative free Janine Israel DO Work Phone: [facility] 07-01-2021 zoster vaccine recombinant Janine Israel DO Work Phone: [facility] 06-04-2021 influenza, injectabl e, quadrivalent, preservative free Janine Israel DO Work Phone: [facility] 02-22-2021 tetanus toxoid, redu patrick diphtheria toxoid, and acellular pertussis vaccine, adsorbed Janine Israel DO Work Phone: [facility] 02-22-2021 zoster vaccine recombinant Janine Israel DO Work Phone: [facility] 06-14-2020 influenza, seasonal, injectable Janine Israel DO Work Phone: [facility] 06-03-2020 influenza, injectabl e, quadrivalent, preservative free Janine Israel DO Work Phone: [facility] 05-18-2019 influenza, injectabl e, quadrivalent, preservative free Janine Israel DO Work Phone: [facility] 06-17-2018 influenza, injectabl e, quadrivalent, preservative free Janine Israel DO Work Phone: [facility] Payers Date Payer Category Payer Private Health Insurance [employer] [id number] 2024 Unknown 2024 Unknown [id number] 2016 Unknown [id number] 1965 Unknown [id number] 2.16.840.1.900621.3.579.2. 593 1965 Unknown [id number] 2.16.840.1.448343.3.579.2. 593 1965 Unknown [id number] 2.16.840.1.176261.3.579.2. 593 1965 Unknown [id number] 2.16.840.1.494601.3.579.2. 177 1965 Unknown [id number] 2.16.840.1.232058.3.579.2. 1259 1965 Unknown [id number] 2.16.840.1.417746.3.579.2. 1259 1965 Unknown [id number] 2.16.840.1.450200.3.579.2. 1259 1967 Unknown [id number] 2.16.840.1.549320.3.579.2. 1259 1967 Unknown [id number] 2.16.840.1.621250.3.579.2. 1259 1967 Unknown [id number] 2.16.840.1.746038.3.579.2. 718 1967 Unknown [id number] 2.16.840.1.292822.3.579.2. 718 1967 Unknown [id number] 2.16.840.1.202017.3.579.2. 718 1967 Unknown [id number] 2.16.840.1.882338.3.579.2. 718 1967 Unknown [id number] 2.16.840.1.803996.3.579.2. 718 1959 Unknown [id number] Social History Date Type Detail Facility Start: 05-17-2024 Tobacco smoking stat [facility] Never smoked tobacco [facility] Start: 05-17-2024 Tobacco use and exposure Smokeless t obacco non-user [facility] Start: 05-18-2024 End: 06-15-2024 Alcoholic beverage intake Current drinker of alcohol (finding) [facility] Start: 05-18-2024 End: 06-15-2024 [facility]coholic beverage intake [facility] Start: 05-18-2024 End: 06-15-2024 Tobacco use panel [facility] Healthcare Start: 1965 Sex assigned at Male [facility] Start: 2024 Gender identity Identifies as male gender (finding) [facility] Healthcare Clinical Notes 03-19-2024 to 08-28-2024 [...] has normal right wrist ROM. Muscle Strength Reconditioner: 4/5 Other Erythema: absent Scars: present (Well healed) Sensation: normal Pulse: present Comments: Left Hand Exam Tenderness Left hand tenderness location: tenderness over the incision. Range of Motion The patient has normal left wrist ROM. 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 Dustin Zuniga WOOD EXPERIMENTAL MECHANIC[employer]NER documented in this encounter [facility] 08-09-2024 Note [id number] History of Presen t illness Narrative [...] develop for requiring urgent evaluation. Dustin Zuniga WOOD EXPERIMENTAL MECHANIC[employer]NER documented in this encounter [facility] 07-31-2024 Telephone encounter Note That is normal. The new skin that is healing underneath will push up and the skin will start to peel off. Try not to pick at it. [facility] Work Phone: 07-31-2024 Miscellaneous Notes That is normal. The new skin that is healing underneath will push up and the skin will start to peel off. Try not to pick at it. Patient called stating that his incision is raising up. Had carpal tunnel surgery on 07/24. Stats its not hot to the touch. documented in this encounter [facility] 07-31-2024 Telephone encounter Note Patient called stating that his incision is raising up. Had carpal tunnel surgery on 07/24. Stats its not hot to the touch. [facility] 07-24-[address] [facility] SURGERY Clinical Discharge Summary PERSON INFORMATION Name SANJEEV BLACKBURN Age 59 Years 1965 Sex MALE Language [place] PCP Dev Perla DO Marital Status [facility] Service Ambulatory Surgery Acct# Arrival 07/24/2024 12:51:27 Visit Reason SURGERY - RIGHT CARPAL TUNNEL RELEASE Acuity LOS 056 01:15 Address: [facility] [address] Comment: PROVIDER INFORMATION VITALS INFORMATION Vital Sign [...] Follow up: With: Address: When: Dustin Zuniga [address] [place] [id number] [facility] (1) 08/03/2024 2:30 PM DIAGNOSIS Carpal tunnel syndrome, right Comment: PHYS DOC NOTES [facility] 07-24-2024 Note Procedure: Decompres armand of [...] on: 07/24/2024 13:44 EST] Janine Israel DO [facility] 07-21-2024 Telephone encounter Note Post op pain rx. PDMP reviewed [facility] 07-21-2024 Miscellaneous Notes Post op pain rx. PDMP reviewed documented in this encounter [facility] 07-20-2024 History of Presen t illness [...] Arthritis CTS (carpal tunnel syndrome) 2018 Hypertension ([facility]) Kidney stones Neuroma of foot [...] Comments denies dribbling. Incontinence denies. Musculoskeletal: CommentsSee [facility] for details. Skin: Rash denies. Neurologic: [...] as scribe for Dustin Zuniga CNP/errol Zuniga WOOD EXPERIMENTAL MECHANIC[employer] documented in this encounter [facility] 07-13-2024 Note [id number] 07-10-2024 Note Procedure: Decompres armand of [...] on: 07/10/2024 13:28 EDT] Janine Israel DO [facility] 07-10-[address] [facility] SURGERY Clinical Discharge Summary PERSON INFORMATION Name SANJEEV BLACKBURN Age 59 Years 1965 Sex MALE Language [place] PCP Dev Perla DO Marital Status Med Service Ambulatory Surgery Acct# Arrival 07/10/2024 11:59:40 Visit Reason SURGERY - LEFT CARPAL TUNNEL RELEASE Acuity LOS 042 00:39 Address: [address] [place] [id number] Comment: PROVIDER INFORMATION VITALS INFORMATION Vital Sign [...] Address: When: Janine Israel [address] [place] [address] Business (1) 07/20/2024 2:45 PM Type Location Start [facility] 07/24/2024 2:00 PM 07/24/2024 2:30 PM Confirmed DIAGNOSIS Carpal tunnel syndrome, left Comment: PHYS DOC NOTES [facility] 07-07-2024 Telephone encounter Note Post op pain rx. PDMP reviewed [facility] 07-07-2024 Miscellaneous Notes Post op pain rx. PDMP reviewed documented in this encounter [facility] 06-15-2024 History of Presen t illness [...] Arthritis CTS (carpal tunnel syndrome) 2018 Hypertension ([facility]) Kidney stones Neuroma of foot [...] Comments denies dribbling. Incontinence denies. Musculoskeletal: CommentsSee [facility] for details. Skin: Rash denies. Neurologic: [...] Israel/errol Israel D.O. documented in this encounter [facility] 05-18-2024 History of Presen t illness [...] Arthritis CTS (carpal tunnel syndrome) 2018 Hypertension ([facility]) Kidney stones Neuroma of foot [...] Israel/errol Israel D.O. documented in this encounter [facility] 03-19-2024 Note Education Materials Urology Kidney [...] these instructions at home: Medicines ? Take olbm-tck-kpoasuj and prescription medicines only as told by [...] Reviewed: 2022 Elsevier Patient Education ? 2022 [employer]. [facility] Evaluation note Diagnosis Post-operative pain- Primary [...] section and content) DATE CREATED AUTHOR 03/15/2018 [facility] DATE CREATED AUTHOR AUTHOR'S ORGANIZ ATION 03/16/2018 [facility] DATE CREATED AUTHOR AUTHOR'S ORGANIZ ATION 11/28/2022 [facility] DATE CREATED AUTHOR AUTHOR'S ORGANIZ ATION 09/17/2023 [facility] DATE CREATED AUTHOR AUTHOR'S ORGANIZ ATION 08/31/2024 [facility] EPIC DATE CREATED AUTHOR AUTHOR'S ORGANIZ ATION 01/23/2025 [facility] Care Teams (unrecognized sec tion and content) Alternative Education Teacher Relationship Specialty Start Date End Date Dev Perla MD [address] [place] [phone] PCP - General Family Medicine 05/17/24 Alternative Education Teacher Relationship Specialty Start Date End Date Dev Perla MD [address] [place] [id number] PCP - General Family Medicine 05/17/24 Alternative Education Teacher Relationship Specialty Start Date End Date Dev Perla MD [address] [place] [phone] PCP - General Family Medicine 05/17/24 Alternative Education Teacher Relationship Specialty Start Date End Date Dev Perla MD [address] [place] [phone] PCP - General Family Medicine 05/17/24 Alternative Education Teacher Relationship Specialty Start Date End Date Dev Perla MD [address] [place] [address] PCP - General Family Medicine 05/17/24 Alternative Education Teacher Relationship Specialty Start Date End Date Dev Perla MD [address] [place] [phone] PCP - General [facility] Medicine 05/17/24 Alternative Education Teacher Relationship Specialty Start Date End Date Dev Perla MD [address] [place], [place] [phone] PCP - [facility] 05/17/24 Alternative Education Teacher Relationship Specialty Start Date End Date Dev Perla MD [address] [place] [phone] PCP - General [facility] 05/17/24 Alternative Education Teacher Relationship Specialty Start Date End Date Dev Perla MD [address] [place] [phone] PCP - General Family Medicine 05/17/24 Reason [...] BE BASED ON THE PRIMARY CLINICAL RECORDS. [facility]. provides no warranty or guarantee of the accuracy or completeness of information in this document.
[2025-05-08 19:53] LABS: Hematocrit 40.8 % (42.0-54.0); Hemoglobin 14.0 g/dL (14.0-18.0); Immature Granulocytes Abs Auto 0.05 10^3/uL (0.00-0.03); Immature Granulocytes Pct Auto 0.6 % (0.0-0.5); Lymphocytes Absolute Auto 0.9 10^3/uL (1.2-3.8); Mean Corpuscular HGB Conc 34.3 g/dL (29.9-35.2); Mean Corpuscular Hemoglobin 30.9 pg (25.9-34.0); Mean Corpuscular Volume 90.1 fL (80.0-94.0); Platelet Count 195 10^3/uL (150-450); Red Blood Count 4.53 10^6/uL (4.70-6.10); White Blood Count 8.6 10^3/uL (4.0-11.0)
[2025-05-08] MEDS: KETOROLAC TROMETHAMINE 30 MG/ML VIAL IVP (20:08)
[2025-05-08 20:10] LABS: Anion Gap 8.0; Blood Urea Nitrogen 25.0 mg/dL (7.0-18.0); Calcium 8.9 mg/dL (8.5-10.1); Carbon Dioxide 30.6 mmol/L (21.0-32.0); Chloride 100 mmol/L (98-107); Estimated GFR (African America >60 (>=60 mL/min/1.73m^2); Estimated GFR (Non-African Ame >60 (>=60 mL/min/1.73m^2); Glucose 101 mg/dL (74-106); Potassium 3.6 mmol/L (3.5-5.1); Sodium 135 mmol/L (136-145)
[2025-05-08] MEDS: HYDROCODONE/ACET 5-325 MG TABLET 1 TAB PO (21:54)
[2025-05-08 22:12] VITALS: BP 115/76; PULSE 89; TEMP 36.9; O2SAT 96
[2025-05-08] MEDS: AMOXICILLIN/POT CLAV 875-125 MG TABLET 1 TAB PO (22:15)
--- NOTE | 2025-05-08 22:18 | PC.NURSE ---
i gave this patient verbal and wrtitten discharge orders along with 2 e-scripts and this patient voices yes to understanding these. at time of discharge this patient voices no concerns and shows no signs of distress
== END 2025-05-08 22:21 | disposition home or self-care (01) ==
PROVIDERS: Emergency Provider Emergency Medicine; PCP Family Medicine
DX: M25.571 Pain in right ankle and joints of right foot (principal); Z98.890 Other specified postprocedural states; R22.41 Localized swelling, mass and lump, right lower limb
CPT/HCPCS: 36415; 73610; 80048; 85025; 85652; 86140; 96374; 99285; J1885

== ENCOUNTER 2025-06-22 08:54 | Outpatient (OUT) | payer OTHER, SELFPAY ==
--- NOTE | 2025-06-22 08:58 | CT_ITS ---
The [address] [address] Patient Name: GURVINDER CHAUDHRY MRN: [id number] date: 1965 Sex: M Assigned Patient Location: CT Current Patient Location: CT Accession/Order Number: [id number] Exam Date: 06/22/2025 09:19 Report Date: 06/22/2025 10:32 At the request of: ROS CM DPM Procedure: CT ankle RT wo con CT ankle RT wo con 06/22/2025 9:35 AM SIGNS AND SYMPTOMS: Chronic right ankle pain TECHNIQUE: Multidetector CT axial slices of the right ankle without IV contrast. Multiplanar reformats were performed and viewed on a separate workstation and reviewed to further define anatomy and possible pathology. CT was performed with one or more of the following dose reduction techniques: Automated exposure control, adjustment of the mA and/or kV according to patient size, or use of iterative reconstruction technique. 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 There is subcortical cystic changes of the distal tibia at the tibiotalar joint space. The calcaneus, cuboid, navicular, and cuneiforms are intact. There is thickening of the anterior tibial tendon. This is in the region of previous abscess. No subcutaneous emphysema is noted on the current exam. There is surrounding edema. There is plantar surface calcaneal spurring. CT/CT ankle RT wo con IMPRESSION: There is thickening of the anterior tibial tendon. This is in the region of previous abscess. No subcutaneous emphysema is noted on the current exam. There is surrounding edema suggesting tenosynovitis. Additional but similar postoperative and degenerative changes are noted as above. Impression dictated by: Gabino Mckinney M.D. 06/22/2025 10:32 AM Dictation Location: [place] [address] Electronically authenticated by: [id number] Y Date: 06/22/2025 10:32
--- OUTSIDE RECORDS SUMMARY | 2025-06-22 09:02 | XMS_ITS | CCD ---
Author Organization [facility] Care Team Providers Care Hospital Administrator Name Role Phone DEV PERLA Unavailable Unavailable QUIN ROBISON Unavailable Unavailabl sharath PHYSICIAN, DEFAULT Unavailable Unavailable PHYSICIAN, DEFAULT Unavailable DEV Ayon Unavailable Unavailable ROS CM Admitting Unavailable TOI, ROS Smith Attending Unavailable ROS CM Consulting Unavailable ROS CM Admitting Unavailable ROS CM Attending Unavailable JAIR CARPENTER Admitting Unavailable JAIR CARPENTER Attending Unavailable MISSAEL TEJADA Admitting Unavailable MISSAEL TEJADA Attending Unavailable DEV PERLA Primary Care Unavailable Dev Perla MD Primary Care Provider [phone] JANINE ISRAEL Attending Unavailable ELI GARCIA Referring Unavailable JANINE ISRAEL Attending Unavailable DUSTIN ZUNIGA Attending Unavailable DUSTIN ZUNIGA Attending Unavailable DUSTIN ZUNIGA Attending Unavailable Janine Israel Admitting Unavail able Dev Perla Primary Care Unavailable Janine Israel Attending Unavail able Janine Israel Admitting Unavail able Dev Perla Primary Care Unavailable Janine Israel Attending Unavail able Dev Perla Primary Care Unavailable Allergies Allergy Classification Reported Allergen(s) Allergy Type Date of Onset Reaction(s) Facility (3 sources) cephalexin; Translations: [Keflex] Drug Allergy 09-20-2009 [facility] Repository (18 sources) Cephalexin Drug Allergy [facility] Medications Current Medications Medication Drug Class(es) Dates Sig (Normalized) Sig (Original) acetaminophen 325 mg / HYDROcodone bitartrate 5 mg oral tablet (2 sources) Opioid Agonist Start: 07-23-2024 End: 07-26-2024 take 1 tablet by mouth every six hours for pain HYDROcodone-aceta minophen ([place]) 5-325 MG tablet Indications: S/P carpal tunnel release Take 1 tablet by mouth every 6 (six) hours if needed for severe pain for up to 3 days 12 tablet 07/23/2024 07/26/2024 Active Start: 07-07-2024 End: 07-10-2024 take 1 tablet by mouth every six hours for pain HYDROcodone-acetaminophen ([place]) 5-325 MG tablet Indications: Post-operative pain Take [...] Coding Summaryon 07-30-2024 Coding Summary HTMLBase 64 JyjhfrrpRUf5mEu+PGhl YWQ+KL8DQYWtD39bnPGg tM0yR1EQMQgTCgocMSFL DLyZSqFipgPwDA7raUMh ZXJu IC8+CD8yXYGuYveenZTj g4H3yQB1C02oup8xFPzb xPQ1CBCsFoIntfohb8wa gCo9VBopGfslCjEr SMSjjM19LTJ4bR82Pf99 aFHglOSjf6snzAh5SlJc KXBdSFC4gLykWIbpj2Dy EBBrB37jlOHut0T2 IGNvbGxhcHNlOyBlbXB0 eI8pOYhffpxtw8tlnpkw Bsg7vg46ySXfc5D4oKJ3 F9CxyfA3IWMsiBZo JhzmvTEYiG5dywojw0ta llanWkUzTPAtONx6WGc6 YLZxjSjiKrTaZS26XCB9 EBNyuxXoV8YaTGJr dBxyMzM6y5H8Wl2WW4FH HosdS2XKHNBAEFbuaXR+ VP50bd50G8LuJdegZjc4 SRQoONC5cEW0tY2a RXVzUBdwx5J2vNU9X5Ss knKnme6gm7ccVCKrVLzz C67azWLsf7I7QEMevUQ9 WMNbqDroVyXwzT19 Oyc+AGJctTtkc9DkUpor i9jrm5pnhIz0IsdjHPNe tlYdoZonREG2t6OkYg8h EKOqyNL9rVY3xH4n IxNzCzO3DSwiI202TaWk yMMnWhpvF66qI1OivXV+ MQNoTqf8DRPlkPsoPT5l Q6XmZLBqokytoJAy fJguCP7nPJAaepquTRDv gG3mPWUpV0n2VuPjRfC6 BMccH7PbPUAefbwvLh62 kU3mExWmWxY8NMwr Z4NppsY8ZIOuoOPsLBem ASH1F25lw2N8XMDjJFVe LXZ0rYB0gX2yhGkiglev bGVmdDsgdmVydGlj DZklNQhpF250YZSjjPvp PkNvZGluZyBEYXRlOiAg MTEvMTAvMjAyNDwvdGQ+ SILiSMJ9iJqfFABg yBUcJPdnLe7pdKefoBig YW6bZGOwbcirCMLynH3g CFSatANgqCfnPU1jMTOw byluu691CuGnDWK2 XBJmqULdV5VwjC4hRwGv TZFaQUHhC7WgqNNnXRle J462DQeuThN9GROjkyIf B4EsAXMhfCfeVbC5 q0C4Kw5Pt8QoziclB0Bn hDTbOuVoWtbmTSk7O2Yf PjwvdHI+PI49RIRmIV44 KDg0RBH3kAqaIVwb ZSDdM2LrcD4zHyRoTDUp ZGRkOyc+PHRhYmxlIHdp ZHRoPScxMDAlJyBzdHls MN9tKj2zANFcETPh oGudfFUvFxXvz3umBBXf UIcqSS1ylErnU7LiaSM6 WRYvm0l1Nq09G23mF7Qq dXA+GWSpgHV5cDX1 sE9aOvMvErS5UQvnJ244 EmVklSAgPnaxs6rrx5mt fFd7SiK4FMLgsxAhpSwz TQA5e5CgUu64P62j IHdpZHRoPSIxNSUiIHZh dNsvfx5izG7vJm0+PGNv qFQ4iOT6pR7ePbEcUeD1 BSvpP539QfSnxPUh Uytbn8hoe5xheEm0AbWq XJCfpxMlyVwzMMI9v9Ld Eb35T1CgrRbpp1FqArs3 ga88yOBdn4U5vLT1 S3HbQJHgcairtZLdtEwe RF9jKTKjthmrSAEwnS7o YEWnD0z8MlDjJoH9XTra B3IubtF4LFUisCTf LUGlgKEKyP8utsijn8mp nucoPtFmWJUmQYk4ILw8 DCLieEibBgQsRDJ4XeA2 QTX2pGDgfM1yaAph wqyraV3gHnu+NNN6rVUl pTJRJE0uGagvyXB+PHRk YGC4cNqePOrtSYEptO4w YLZmF8z3HzJjYaG2 VRhsF3ZpekF0JXUlmQKe KPCsqASTvP8lzhdzw7ir eotgQiGkLMShPYu8LIl6 LWFsaWduOiBsZWZ0 CjP1TIO3yPThyM5hdOjy shmguU0vOrx+QmlydGgg LLK1YSi3A3LjEoq3HYUd bStqLH1krFKbRFqp Sf6ulCxayYzfPF6mMQLp vavtv988TmCfl7cqVFWe qLUqXMbrRMX8R03fd6R3 KRPpGLJgQHB1aQB0 kE3zsDrzklddwPCebIuu fhHpsIvfUEuaPAgeG819 GDLsmGrgMwFoFAe8N0Dk Dpn8EEEykWjqHH2p gXJoZDkqLq0kvNklqNbf HC0eECAslmqvd960RjJj q6dwJFNgsMToGJkwUZO6 A91ph0C6XJSzUVQq QLZ7eCB6gR6hrDzrzvrs bGVmdDsgdmVydGljYWwt SFgeU993TRGibHckTnWd pQf8A6GuVne8XLSt fVsnRF3suXRmACfjLy9h mEfgcVbgRE5aMMRishpt o106OcOvq7glHDVqrZKd CGqyCVK6W80qn0I3 DYOdPHUoUWP0gNV0sE5h bGlnbjogbGVmdDsgdmVy kWwaHNboOVcgU831FCMy cDsnPlBhdGllbnQg NTdzXKs2B4CeNqlfcEN+ KW14NUQsBP13uFPhjRIl w9nmfQz0FbDvEQDaIFW5 eVplSIjho1QvFMTf I03tkALcn8X5FFPqyZvy tITzKoEgqTQ6pF9gOPtd jcgfu7vfdngqHrvsi5qp jv46qN75R50gCMcl ZHRoPSIzMCUiIHZhbGln yi9sjA7eQd1+PGNvbCB3 vXM2sV9eLPDzOsG9VFzw R182OjBioYDuJhty w7bvf3umbPd6XsO2GVSj sdQapBcvFZK2r5FpQs81 H13bYHmuGHSaWGFuWIKj XARyeXbidp1biK2n Ii8+MCBtmWY6yTX7cC6f WvScTqK5XEheS466SrBu iDWiRljrO51nM3IuzXG+ KOOpTcl8APAmuHzo ZF2frVPcUFybXm9eNCC2 ZuNlPpTdKJfsZ6BgOHKp zyurozoldTS7OSNuRVVq qU41Ql2vbJraXVJk nOSChX0udhsst4upijlk SaPdISXtXXg6YAk3XGYt uStcHcOgHLD1JsP1ZBR6 rDOtdU9fmWugwzkw rF9nK1OgNKIjqyxbYl55 nW1mRlJbKpL1GQkqZxh+ TDOXFRKQA1UeSLrNAnhd EKyRQS31F8UiPhv4 MZYdrQsoVZ4gnSWePWne Ht6liEchzRunBL0hZKBy dzboSIFseP4uFVZhqAAf wIwpDU3mRIIqwqdq f824SkLwWZK9APEzqJUo T6PkaZ4tOwKgUMYyKHWi Y1RzpWQqWWqcP421XErn FeP7VUJzrkBsP5Tt XVWkeErnEgP1r9G9Ga9p HL9aZm8zDLX1VX31KA26 xBIhj6V3sSY7T2GkTGUt zbjftytqaLZ6LBNv DHOenT40eUTdDPwlUx7z i6I2u195GEUuZHEsfE03 Uc4smFewZHPanWBXlV3g hodvp7wfqpeeUpXm NFIkCHv5GQe2XUIqsGoo AoZtRFX9HpO9MYM9nALx vA3mwAtssrlpmM7pUfx+ UBmcLLIcdiH3S4Av Kna8AEQueVojXS2xcKZs VKlpEi5jzYwjkRlnDO4o HUAkxiveMXAtvO5lCCZc nKXnsCifVS9uLWNu rfdbb278UpImSGA8ECOh hNPpH1UgtY7gDiOjRTPn CIVbD7SpaKBxBSddJ625 ZCbfYcE4ZIHtdzPr P7WdXPUsaLecNxX8m6S1 Wo1SSNsXDT26UQ47cVKh q5D0kMC3K5ErLIShnfea xwowpZC9FCDxUDUh cA10sYDrLHmjZj7gl1W6 q200GVNcFGVtcT67Hm2n mSpyNMCpdUTSyH5cmvwu e5htpbyxDcQgXRXv RCu6QLd1KOVvaXyuXcYi EYU1HzL1VFI9gOMeuV5i hKcjoolptG3iOea+RGF5 VHS1iirvvng9Y4Qv PjwvdHI+PY92QMYnPJ19 oFCpyGDta8cweXw9EuRq VAPlTFM9nOyxRPwqb1Qe LZXoF39jrSLmj1B3 IGNvbGxhcHNlOyBlbXB0 xX2kRJciebgro5blorzp Lkqjh2jtyp22cQ93R95q IHdpZHRoPSIzMCUi ZSGkcEtioi2acA9mIn5+ FKYebMG6jLU8uU7iLdHu KwB7EGzhP165CgRkwRWf Hhqew1fit7vegNz8 IjIwJSIgdmFsaWduPSJ0 f4XiSr34A39kNExcKUBj RRQhFTOmCNLfmZgyhk7q pB2dBz0+WM0oh7pr mi22bJ38pMN+PHRkIHN0 pZgdBApyKMDnjR7yVXcv KkF6OTArWiSqpO08qMQk VVquCi4omNzdkZlb VU2cBNZsrzhhu547HaVc m8caXMVecDHzMKgdJLC8 A38fo3J8LYVvPBJiYUE2 aKO3xQ4meEhreyxm bGVmdDsgdmVydGljYWwt BCdwB829IRDpwGneIbFz zMSzQ7lqdfYNEX6kZlkn dGQ+KVNiBFT6mRgp MLxwVRYwdG6cGSSdT0f2 DfBdPsR1CPbnI3SwkrJ1 DAKzsOSxMWQknQEWdZ7a neljo9oqxsjdNmCx ZWGuIGo6HEj6SOCbuZux IrGvKQE5FyH9MUG3oCNe nB5wmCepbsngkE7zCpw+ RklOOjwvdGQ+PHRk DTO1jMydIXywNYTiyM0k QMUyU5w4MiHpLeW1SChw G9HkzdK6GLChtATsMQAz vWDDgP1gxsxrg1kx lkhwFiGmAZBqELf5BGo0 OAMacOlvIxAhUNE1UpI2 LQM0zCMymW9jeLazautl yS8kHje+TVJOOjwv dGQ+XMKnSSK0aEgdAGor MNCikA7uMUUuD9v2WqEw HpF9VDqeZ1NzobJ1QWQg fOQaSDCxlCGDqJ6g sails5jhlfiuKsJiMUMo WNj6TXq6RIQisQbaNjSx FFK5BpX2CQT5mHNiwC5w rDjhqbbukO0hGfe+ UWU6LLJ0FK71GF85S7Mf PjwvdGFibGU+PHRhYmxl IHdpZHRoPScxMDAlJyBz nXhkSY1uYl2nLJNm LWN (more content not included)... [facility] Consent Formson 07-25-2024 Consent Forms [id number] [facility] Dis[facility] Instructions [id number]# [facility] 07-24-2024 Inpatient Patient Summary [place] [id number] Patient Discharge Instructions Name: SANJEEV BLACKBURN : 1965 Patient Address: [address] [place], [place] [id number] Primary Care Provider: Name: Dev Perla DO After you are discharged if you find you have any questions, please, call [phone] ext [phone] to speak to a nurse. Discharge Diagnosis: Carpal tunnel syndrome, right Prescription Information: If you have been given a prescription for narcotics, seek immediate medical attention if you have any difficulty breathing or any sudden status changes such as confusion and sleepiness. If you or anyone you know is experiencing suicidal thoughts, mental health, alcohol and/or drug addiction problems; contact the [facility] 12/04 Crisis Hotline -text 4HRDG to 865819. If you received any narcotics, sedation, or [...] business decisions or sign any legal documents [facility] would like to thank you for allowing us to assist you with your healthcare needs. The following includes patient education materials and information regarding your injury/illness. SANJEEV BLACKBURN has been given the following list of follow-up instructions, prescriptions, and patient education materials: Follow-up Instructions With: Address: When: Dustin Zuniga [address] [place] [phone] Business (1) 08/03/2024 2:30 PM Medications [...] 3. DO NOT lift heavy objects or safety counselor forcefully with your hand. 4. Change your [...] or concerns, please call the office at [phone]. 7. Follow up as scheduled. Viruses or Bacteria What?s got you sick? Antibiotics only treat bacterial infections. Viral illnesses cannot be treated with antibiotics. When an antibiotic is not prescribed, ask your healthcare professional for tips on how to relieve symptoms and feel better. Usual Cause Illness Viruses Bacteria Antibiotic Needed (more content not included)... Normal [facility] MAGR Intraoperative Recordon 07-24-2024 MAGR Intraoperative Record MAGR Intra-Op Record Summary Primary Physician: Janine Israel DO Finalized Date/Time: 07/24/24 13:50:08 Pt. Name: SANJEEV BLACKBURN/Sex: 1965 MALE Med Rec #: [id number] Physician: Janine Israel DO Financial #: [id number] Pt. Type: D Room/Bed: / Admit/Disch: 07/24/24 [...] DO CSFA Role Performed Surgeon - Primary In Service Education Teacher Substation Mechanic Time In 07/24/24 13:26:00 07/24/24 13:22:00 07/24/24 13:22:00 Time Out 07/24/24 13:43:00 07/24/24 13:50:00 07/24/24 13:50:00 Procedure Carpal Tunnel Carpal Tunnel Carpal Tunnel Release(Right) Release(Right) Release(Right) Last Modified By: Marybeth Baker RN, Debra RN Myers, Debra RN 07/24/24 13:48:51 07/24/24 13:48:51 07/24/24 13:48:51 Entry 4 Case Attendee Eunice Grant RN Role Performed In Service Education Teacher Time In 07/24/24 13:22:00 Time Out 07/24/24 [...] Out Time 07/24/24 13:28:00 Participants Yojana Balderas CST, Myers, Debra RN Last Modified By: Marybeth Baker [...] Prep Syntegrity P (more content not included)... [facility] Pre[facility] MAGR Pre-Op Record Summary Primary Physician: Janine Israel DO Finalized Date/Time: 07/24/24 14:08:57 Pt. Name: SANJEEV BLACKBURN.O.B./Sex: 1965 MALE Med Rec #: [id number] Physician: Janine Israel DO Financial #: [id number] Pt. Type: D Room/Bed: / Admit/Disch: 07/24/24 [...] Signed By: Ernesto Parrish RN 07/24/24 14:08 [facility] Patient Handouton 07-24-[address] ISRAEL'S POST OPERATIVE CARPAL TUNNEL INSTRUCTIONS: SURGEON'S WRITTEN INSTRUCTIONS: 1. Keep your hand elevated above your elbow for the first 24 hours after surgery. 2. Wiggle your fingers frequently while awake. 3. DO NOT lift heavy objects or safety counselor forcefully with your hand. 4. Change your [...] or concerns, please call the office at [phone]. 7. Follow up as scheduled. [facility] Coding Summaryon 10-23-2024 Coding Summary HTMLBase 64 NzoxrwfeQYm2nLb+PGhl YWQ+EZ3CQKKpW55lpLKi gG1kV3DYNOsXEbouDXDY TWkRJkDzqjLxRJ9zhCQn ZXJu IC8+FH5eZEDhOkiryWRi y3F2fIM2T00dar7aHGwi iRL3RQPpAeNgwfgwu0ql hVi6PJxkNqyzWgIh ZEGjoM46WKD6sY04Jc66 iZSgxIZyn1hcfMc6WfUa LIVqQHM7zNoqTSkay7Po DJIyS41xpONgw9D1 IGNvbGxhcHNlOyBlbXB0 cF0bZZmcfigof3wuffvj Iwx9ex05gXWjv3F0uDN1 D0TmwyM8MVVibYTt IsalwABQdG8sbznmf5nr dpjaQtUfVIIdEKg8HIx8 PEAivFvwQqWjIN56JVE3 XGTturLxS4HsARQu pKyzOuR8b1P0Zb1CX5CS IqriH0VLJSLUYTcapXA+ LH64oi20P0WnSezlVew2 EGWvFJF2cPI7bQ9b HRIaNMvrw2O0xUM7V8By qsUhin2lp1tlXQWfRUxq Q78vyGJnb9S4YFBouHC8 BVJfcXkcRsXruI86 Oyc+AKBnrUskw5VbMiri p6woc9zeuWi5CbqrFUDj gvZdmVbkBRB2q0GnId3x RBDyqRC8qCU8jQ6b LnMtWzN9SOmxC083XbLc yOEuDxlpI97kV5NxuTF+ NWBsCzb0SPHfiWkoXX1p Q8JwPHFjmpsewLZo pNabZY0gBKMkwwfvBQQd jX1dNTMsB8f3PcRvZcN3 PDwqV3BkRIKwwffxIy23 cO7xTzQpVxF9BDaz W1BfoaV5VQRthLFwDNyk LQY5H55ce3S8IGTuRCBh XKW0dNA4fM9dpBsqukea bGVmdDsgdmVydGlj WEoeJGjqB653ECQvbHjk PkNvZGluZyBEYXRlOiAg MTAvMjMvMjAyNDwvdGQ+ KPNfANJ7fPyhRTCc hPAoCVvyJf0vhDqdqXwc SA1nCTFqshhnNMAvtS0z QXTslGHkdLfaLB7fYCPw pzgha918MkLfVDL0 RVUvzIFeN7UccM6hJqMb WGMiWFYdV3KpqYWzWXjs X784QCwtVaT8PZSvztMk T5FdWNYeiXzjUdI7 p3P5Pt3Uv4BrebmmL1Mf eAPpJtAiLjmyTIx9J6Fd PjwvdHI+AJ87JEZiOW12 PSb7PYP2qFrgPGva MYTiV3NjgX3eXaBfTXZm ZGRkOyc+PHRhYmxlIHdp ZHRoPScxMDAlJyBzdHls RZ3tPn4kLDPnTRZv aQiiqMKjDmVsu7jyMOJp AQxpDC2kiMgdK9CznJH0 KKJcx0h8Za01C34aT4Nq dXA+XISamTC8gVW1 gM9hXwTsXfT2OJvqH963 XpYuyFTlPgfbw5yij0fb kLd8IdS2NUSxuzXasYqe DIN6a4FrDh75O63f IHdpZHRoPSIxNSUiIHZh jIrypa4aiK1hDp9+PGNv cCD8vRV5yV4mKdZzGoD6 TQbdE726RbNfvLVc Odqth5oaz2qetNx0KhJp IQEnuzJmhHgdSUJ7q0Sw Ed76W5VnbEhdj5TjFdp8 ly44bJMse1K6dMF8 H5SiCUEinpsndLVrkQtr PB1zAIKksgfoFVBojU7z IUJoU8k0MtQjRxS3IVfg Z3XjrhK4SOFulXWj FJRopRMKuF0fttbnz7hn rdlhUeGwQSJwYHh9SOi6 ONCeqJpqVzPwLFA7ZyG7 GGZ3sUEejV4ivTdt noyltL1uOfj+PGS6tDUl yGHHYJ9xMobstSU+PHRk PMT6fYyvWXyfDQUpfU2v XFSgG1c2HtQiGyZ7 IYvqF5FflfK9CURpyVZe IEVbdDAEvW9eoovzs3tw ofwjMjYgJXLnXVx4AHl8 LWFsaWduOiBsZWZ0 RwY1KVY0pJGfxT4enJkh bbsbcM2oWrb+QmlydGgg IHW0HWi4M5MgRmf7DRFn nLagXC7tmNVkCOhr Jj7hjEeiaXjmAH9vFNCn topsr675PvMha8lzYSRp pLYwHBboEMM2F94av2M1 FWMeHHHnNDP6sYN5 fE8zvBzlhbfjrZAwjHej hmPihDrzIDsrVQjyJ495 HJLjzIjgDpJkCNd5D9Ao Dru1LPRrmNgwVF8i yXRhJOjnFj3agXodkDax NR2gMULffdnfq201TvVp q0jrYDRtpWWtCUfqMGU0 A33lq4E3VGBbQQNh KFR0jGM0sP1riCcgtoxk bGVmdDsgdmVydGljYWwt QHmfO586MZOzbCtgSoXc vHu9R8FwApm3KQWg gPeuZO7djAWhDRzmVg7l jGienRbgCE0kMDGqqhkd r242SyOig9nrHITclGYb CSklGTG9Z12wk9L4 EJFzMFOfILC3nAE2mD9f bGlnbjogbGVmdDsgdmVy gNhsRSuqBArlE536COZg cDsnPlBhdGllbnQg MMjiILd2L0RmVevieQM+ YE51OFLuKG67yLWalXOc a8degEk6PnAmRZXiKPN3 sMbnYCasg0OxLYTe V82epJCrf8V8KLVpzMvf aYKiJjKvxXT2iB6cDYrt dvrdk6swqhqqNrwnf3lf ss43xD80U53mWDmj ZHRoPSIzMCUiIHZhbGln cm7kxO9dOk6+PGNvbCB3 gXB0pY1eZEPvCnP0NKge N832SyJqjAKxVqgm w3tmz3lrrGg2XaC3QXDx zxPblSbgYYN4g4FgYe99 Q04gMNbiCEFrYHVpEYCo XOVztOrtgj6qkE7p Ii8+PSQaeSR6xQA9uA8x VuApDfP4VTcbW219DePx yWAkNjttP69gQ4YvsQV+ HXGpYwq8EYAuoFyv CF9fzRZsAGoeSa0jXAC9 MvToKqTnYWplI4DxQLLd dklflmlkrFQ5TPYwKVGp lO25Uw6ayTifVFUb zNHMwX1kpnsnu1blcjbz HiZxAHFeRRo3GVa7JOCd hQovFtEkZQF5UgV0SYI1 tANrpA8qtDrzglqq tP5dE0OoPTChthipPr79 yO2rVmYkMcO1IHfnExr+ WYRWOVUOK8KrKWaQRgnk IZzVNC28R7HmWyn7 SJNgfYzkIJ6vcFFkOFom Da7lqIdouOnnML1nWSLx lyyqGHYclA2eNKRgkFCk zLhgUR6aOBMespdr n242OoOeEQC4NTKmsSMq T1FfqZ5oNlZtEYKdQWDn O6HoyYNrCMcrD391XEcm KtY1LUQsyaBzW1Bp CLOoySruEvM2n9Q8Af3x BM0pJt5oUQC3EW45NG29 jVDoj3H2yUO0O9PbJLMt eiejpwekfFM3ILSo YUZicZ41wSMhFMppEq9m r5B0s291QOJkOZOgjH75 Qe0ohAtoXBJcdAFUqI8o xcdxa1jlimjoQeZe VTKtQUf9ZDm4AIVryPlv KwEuGHC7EtI7HOQ0nPPl dX9oeDxwzeerzW4xVmc+ LWkcLGSiyvR9I9Nf Qnc3JNMdvZlvNZ7ymBIu ZEahDr4hnCocqNubSU1d DVEjtshoCXAcmA7cMWEp pXYvvNeaDN5bIJDp xbtar036GeVzVMJ4ACVf rWXpS7PjiP3eJkMvUPWf MNCaX8PiuOTgTHrsE857 PIniMwL4XMPepfNo T4LlKTPfjYpcOaZ6z8K9 To5YHPnNAS73RP98tGIi v4N4oOX5A8QxPUDrrlmr atkktQC8ALVdXKVj pP88yLAoXJvkJj4iq9V0 t853FBUrMDQzbP15Rl1m mQgxSYTzuEVEaI6smtcf z4yurhglVgMzAJWp XCi0OXy0VYNsqQjrIrEo SSK4NqG6STY9cMIjzH5h bPdbpcqirC1vFdo+RGF5 XJG9ivtgxjt4M9Ey PjwvdHI+QU34XPZpST12 zDRusOAds8pezXi5ZrCr TRCxPYG8tGiqJKlld9Pv WVCmD24igLVnx2L2 IGNvbGxhcHNlOyBlbXB0 yI0xMMokqfkdj7dytljj Eapfh8locm02bQ25X15d IHdpZHRoPSIzMCUi WJFdkVmkmn1ggI9rJc5+ ZYGyvJE8dPN2zF2mFwTs UmT5UWziT692GuGeyCJn Jndcd4xmo5tpvHe4 IjIwJSIgdmFsaWduPSJ0 q1ZaSw67Y19oICshLGZp EKUzSTTvSRAhzQzeyv1t dO2tJu4+HC8cb3wp lh89nN16iGT+PHRkIHN0 dCfyGQngLXQeiX3cYJdk DaD4AMRiNbPqjA36kVNh PWjhBt8lwHhnnSwm NN0iGATaheikq156QwSg u2emLBYtuPVvLExdTWE7 D09as9Y3UEUsGXTeJQK7 fFW8tF4bvQqzwzvy bGVmdDsgdmVydGljYWwt URvlB745WNXqwYlzKjQe oLCxR1zwniSZPV3qSdvd dGQ+DRHlKUZ3uQnd FUuxVHGznT4iUIXrY6b4 TfWoJrV1HJbqZ5DqaoF3 RNDbzEBdVVOhyPBAiK9l mpsup5rthxunSxRm PAIyNDq4LJz2NDVrrNtv MrHiLPH6BsD1MPL0rEQo yU8zaZmmojvwwN7fXkv+ RklOOjwvdGQ+PHRk BYQ5wBocALjlNYThdM5w KNUpI2k1QoKtErW2ELmm K6NhdzQ6QDFhqNNkYZTz eHMUzC8irrwod9hd lxvkQxCcFWFxCMi6OWf4 WSXetExlXpUzSUH4NuP5 OUH5jVVxmM7taJdwrzle sZ7cRfc+TVJOOjwv dGQ+LOSkNCZ7fMriPGbz NBNbwX2eKSVxH1h2LbWv YsU3SQjhF2RinfL9KXIs nAXhYDIjxYRNhA9p vyxfb8zmtswvSkIuPNEf XUy9ZNi5PYKchFywCpYz LKS1QzS5MNU8sFTiwZ6v nPswpfsznM9wKji+ SEY1IAN3QB11FG04X3Cg PjwvdGFibGU+PHRhYmxl IHdpZHRoPScxMDAlJyBz wWggMA8fXx3aPZGk LWN (more content not included)... [facility] Billing Authorizationson Billing Authorizations [id number] #[facility] Consent Forms [id number]# 1.00[facility] Discharge Instructionson Discharge Instructions [id number]# 1.00[facility] Inpatient Patient Summaryon 07-10-2024 [place] [address] Patient Discharge Instructions Name: SANJEEV BLACKBURN : 1965 Patient Address: [address] [place] [address] Primary Care Provider: Name: Dev Perla DO After you are discharged if you find you have any questions, please, call [phone] ext [phone] to speak to a nurse. Discharge Diagnosis: Carpal tunnel syndrome, left Prescription Information: If you have been given a prescription for narcotics, seek immediate medical attention if you have any difficulty breathing or any sudden status changes such as confusion and sleepiness. If you or anyone you know is experiencing suicidal thoughts, mental health, alcohol and/or drug addiction problems; contact the [facility] 12/04 Crisis Hotline -Text 4HOPE hd [phone]. If you received any narcotics, sedation, or [...] business decisions or sign any legal documents [facility] would like to thank you for allowing us to assist you with your healthcare needs. The following includes patient education materials and information regarding your injury/illness. SANJEEV BLACKBURN has been given the following list of follow-up instructions, prescriptions, and patient education materials: Follow-up Instructions With: Address: When: [address] [place] [address] Business (1) 07/20/2024 2:45 PM Medications During [...] 3. DO NOT lift heavy objects or safety counselor forcefully with your hand. 4. Change your [...] or concerns, please call the office at [phone]. 7. Follow up as scheduled. Viruses or Bacteria What?s got you sick? Antibiotics only treat bacterial infections. Viral illnesses cannot be treated with antibiotics. When an antibiotic is not prescribed, ask your healthcare professional for tips on how to relieve symptoms and feel better. Usual Cause Illness Viruses Bacteria Antibiotic Needed C (more content not included)... [facility] Intra-Op Record Summary Primary Physician: Janine Israel DO Finalized Date/Time: 07/10/24 13:39:45 Pt. Name: SANJEEV BLACKBURN/Sex: 1965 MALE Med Rec #: [id number] Physician: Janine Israel DO Financial #: [id number] Pt. Type: D Room/Bed: / Admit/Disch: 07/10/24 [...] DO CSFA Role Performed Surgeon - Primary In Service Education Teacher Scrub Personnel Time In 07/10/24 13:03:00 07/10/24 12:58:00 07/10/24 12:58:00 Time Out 07/10/24 13:26:00 07/10/24 13:28:00 07/10/24 13:28:00 Procedure Carpal Tunnel Carpal Tunnel Carpal Tunnel Release(Left) Release(Left) Release(Left) Last Modified By: Eunice Grant RN, Diane RN Kokinda, Diane RN 07/10/24 13:31:50 07/10/24 13:31:50 07/10/24 13:31:50 Entry 4 Case Attendee Geovanna Zaidi SENIOR PAINTER Role Performed Substation Mechanic Time In 07/10/24 12:58:00 Time Out 07/10/24 13:28:00 Procedure Carpal Tunnel Release(Left) Last Modified By: Eunice Grant RN 07/10/24 13:31:50 Surgical Procedures MAGR Pre-Care Text: A.20 Verifies operative procedure, surgical site, and laterality Im.150 Develops individualized plan of care Entry 1 Procedure Carpal Tunnel Release Primary Procedure Yes Primary Surgeon Janine Israel DO Surgeon Comment LEFT CARPAL TUNNEL Start [...] Out Time 07/10/24 13:08:00 Participants Geovanna Zaidi SENIOR PAINTER, Eunice Grant RN Last Modified By: Eunice [...] sources Entry 1 (more content not included)... [facility] Pre[facility] MAGR Pre-Op Record Summary Primary Physician: Janine Israel DO Finalized Date/Time: 07/10/24 13:43:42 Pt. Name: SANJEEV BLACKBURN JOSE ARMANDO /Sex: 1965 MALE Med Rec #: [id number] Physician: Janine Israel DO Financial #: [id number] Pt. Type: D Room/Bed: / Admit/Disch: 07/10/24 [...] Signed By: Ranjana Adkins RN 07/10/24 13:43 [facility] Patient Handouton 07-10-[address] [facility] [employer] OPERATIVE CARPAL TUNNEL INSTRUCTIONS: SURGEON'S WRITTEN INSTRUCTIONS: 1. Keep your hand elevated above your elbow for the first 24 hours after surgery. 2. Wiggle your fingers frequently while awake. 3. DO NOT lift heavy objects or safety counselor forcefully with your hand. 4. Change your [...] or concerns, please call the office at [phone]. 7. Follow up as scheduled. Normal [facility] CMP Standardon 06-16-2024 eGFR Non AA >60 Invalid Interpretation Code [facility] Comment on above: Performed By: #### 9 [id number], [id number], 7787472, 0497148, [id number], 8484210, 0529433, [id number] ####[facility] (DEFAULT)[address] [place] [address] 33388 eGFR AA >60 Invalid Interpretation Code [facility] Comment on above: Performed By: #### 9 628124, 6337183, 8862194, 9573177, [id number], 6266358, 4585233, [id number] ####[facility] (DEFAULT)[address] [place] [address] 84599 Albumin [Mass/Vol] 4.4 g/dL Normal 3.5-5.0 [facility] Comment on above: Performed By: #### 9 383598, 6811714, 1337140, 9393418, [id number], 0229876, 1171622, [id number] ####[facility] (DEFAULT)[address] [place] [address] 49692 Albumin/Globulin [Mass ratio] 1.6 {ratio} Normal 1.4-2.6 [facility] Comment on above: Performed By: #### 9 975106, 1003353, 4312248, 0644853, [id number], 6034916, 5232513, [id number] ####[facility] (DEFAULT)[address] [place] [address] 36093 Alk Phos 58 IU/L Normal 32-91 [facility] Comment on above: Performed By: #### 9 687368, 8948898, 9760864, 0830676, [id number], 3275375, 5853858, [id number] ####[facility] (DEFAULT)[address] [place] [address] 31517 ALT [Catalytic activity/Vol] 40.0 U/L Normal 17.0-63.0 [facility] Comment on above: Performed By: #### 9 864638, 1937113, 7034534, 6476861, [id number], 4233027, 0952191, [id number] ####[facility] (DEFAULT)[address] [place] [address] 65947 Anion gap [Moles/Vol] 8.9 mmol/L Normal 5.0-19.0 [facility] Comment on above: Performed By: #### 9 515995, 4935113, 8678027, 5466405, [id number], 2150814, 9351209, [id number] ####[facility] (DEFAULT)[address] [place] [address] 34076 AST [Catalytic activity/Vol] 31 U/L Normal 15-41 [facility] Comment on above: Performed By: #### 9 130662, 2208589, 3767831, 1677438, [id number], 1490715, 5570434, [id number] ####[facility] (DEFAULT)[address] [place] [address] 17604 Bili Total 0.4 mg/dL Normal 0.3-1.2 [facility] Comment on above: Performed By: #### 9 458385, 1341243, 3920981, 8607308, [id number], 1604863, 7837932, [id number] ####[facility] (DEFAULT)[address] [place] [address] 46666 Calcium [Mass/Vol] 8.9 mg/dL Normal 8.9-10.3 [facility] Comment on above: Performed By: #### 9 747095, 3716640, 6485976, 9050804, [id number], 7036809, 5688987, [id number] ####[facility] (DEFAULT)[address] [place] [address] 81443 Chloride [Moles/Vol] 103 mmol/L Normal 101-111 [facility] Comment on above: Performed By: #### 9 501582, 9795043, 7416054, 4151700, [id number], 5201470, 4977475, [id number] ####[facility] (DEFAULT)[address] [place] [address] 07854 CO2 [Moles/Vol] 28 mmol/L Normal 21-32 [facility] Comment on above: Performed By: #### 9 454078, 5061962, 5805806, 0008997, [id number], 2749292, 8271477, [id number] ####[facility] (DEFAULT)[address] [place] [address] 07774 Creatinine [Mass/Vol] 1.11 mg/dL Normal 0.90-1.30 [facility] Comment on above: Performed By: #### 9 041791, 7474806, 2400538, 7268703, [id number], 7828537, 6384260, [id number] ####[facility] (DEFAULT)[address] [place] [address] 03344 Globulin (S) [Mass/Vol] 2.6 g/dL Normal 1.5-4.3 [facility] Comment on above: Performed By: #### 9 517341, 3924735, 8045636, 2658410, [id number], 9653516, 7665696, [id number] ####[facility] (DEFAULT)[address] [place] [address] 10605 Glucose [Mass/Vol] 89.0 mg/dL Normal 74.0-118.0 [facility] Comment on above: Performed By: #### 9 238793, 5848982, 7407188, 6410779, 7125885867, 2781518, 9474706, [id number] ####[facility] (DEFAULT)[address] [place] [address] 55899 Osmolality 277 mOsm/L Invalid Interpretation Code [facility] Comment on above: Performed By: #### 9 389925, 6843975, 7118452, 8052636, [id number], 8606246, 9071644, [id number] ####[facility] (DEFAULT)[address] [place] [address] 70876 Potassium [Moles/Vol] 3.9 mmol/L Normal 3.6-5.1 [facility] Comment on above: Performed By: #### 9 819760, 7992519, 9350952, 9266449, [id number], 1044828, 8661719, [id number] ####[facility] (DEFAULT)[address] [place] [address] 26584 Protein [Mass/Vol] 7.0 g/dL Normal 6.5-8.1 [facility] Comment on above: Performed By: #### 9 312180, 0480987, 1467714, 4900259, 1640754928, 4242322, 0622836, [id number] ####[facility] (DEFAULT)[address] [place] [address] 90433 Sodium [Moles/Vol] 136.0 mmol/L Normal 136.0-144.0 [facility] Comment on above: Performed By: #### 9 635295, 7475020, 7554492, 5483236, 1657220239, 7590899, 7522130, [id number] ####[facility] (DEFAULT)[address] [place] [address] 97796 Urea nitrogen [Mass/Vol] 28 mg/dL High 8-26 [facility] Comment on above: Performed By: #### 9 819745, 5825994, 9554066, 3887126, 1030597336, 4154339, 2048293, [id number] ####[facility] (DEFAULT)[address] [place] [address] 36887 Urea nitrogen/Creatinine [Mass ratio] 25.2 mg/mg High 4.6-16.2 [facility] Comment on above: Performed By: #### 9 817615, 9214785, 4336127, 0905319, 1813250949, 9364530, 5978497, [id number] ####[facility] (DEFAULT)[address] [place] [address] 60024 GGTon 06-16-2024 Gamma glutamyl transferase [Catalytic activity/Vol] 42.0 U/L Normal 7.0-50.0 [facility] Comment on above: Performed By: #### 9 240021, 2179097, 6790064, 1663922, 7796865339, 9355253, 3776194, 0539054514 ####[facility] (DEFAULT)[address] [place] [address] 71397 Iron Levelon 06-16-2024 Iron [Mass/Vol] 56.0 ug/dL Normal 45.0-182.0 [facility] Comment on above: Performed By: #### 9 431676, 6156179, 6480608, 0495195, 3404188633, 2822566, 5790781, [id number] ####[facility] (DEFAULT)[address] [place] [address] 54869 LDHon 06-16-2024 LDH 233.0 IU/L High 98.0-192.0 [facility] Comment on above: Performed By: #### 9 314271, 5065575, 4725941, 5573158, 8207392478, 3529355, 4831085, [id number] ####[facility] (DEFAULT)[address] [place] [address] 52172 Lipid Panel Standardon 06-16 Cholesterol [Mass/Vol] 235.0 mg/dL High 66.0-200.0 [facility] Comment on above: Performed By: #### 9 002266, 1083429, 7022296, 0228693, 2953789294, 7208011, 2726375, [id number] ####[facility] (DEFAULT)[address] [place] [address] 45247 Cholesterol in HDL [Mass/Vol] 41 mg/dL Normal 40-71 [facility] Comment on above: Performed By: #### 9 970363, 9132418, 9526023, 9428537, 6053560004, 3382690, 8637947, [id number] ####[facility] (DEFAULT)[address] [place] [address] 47617 Cholesterol in LDL [Mass/Vol] 144 mg/dL High 1-100 [facility] Comment on above: Performed By: #### 9 783979, 7828284, 0719058, 5667757, 9937329647, 8940626, 4357026, 9823329711 ####[facility] (DEFAULT)[address] [place] [address] 23901 Cholesterol.total/Cho lesterol in HDL [Mass ratio] 5.7 {ratio} High 0.0-4.5 [facility] Comment on above: Performed By: #### 9 784086, 0358966, 2808225, 5711300, 6995630893, 5840591, 6527621, 4654344550 ####[facility] (DEFAULT)[address] [place] [address] 57377 Triglyceride [Mass/Vol] 249.0 mg/dL High 0.0-150.0 [facility] Comment on above: Performed By: #### 9 548935, 1244959, 0582255, 9062687, 6193300557, 9905583, 0086478, [id number] ####[facility] (DEFAULT)[address] [place] [address] 17890 VLDL. 50 mg/dL High 5-40 [facility] Comment on above: Performed By: #### 9 810166, 8585379, 1187527, 5940150, 0302998145, 9834694, 9688605, 2048403072 ####[facility] (DEFAULT)[address] [place] [address] 17552 PSA Screenon 06-16-2024 PSA Screen 4.27 ng/mL High 0.00-4.00 [facility] Comment on above: Result Comment: Photos I Like Clinical System (Chemiluminescence) Values obtained with different assay methods or kits cannot be used interchangeably. Results cannot be interpreted as absolute evidence of the presence or absence of malignant disease. Performed By: #### 9 119499, 8361355, 7203712, 6965902, 6039488089, 1870620, 8383882, [id number] ####[facility] (DEFAULT)[address] [place] [address] 70385 Phoson 06-16-2024 Phosphate [Mass/Vol] 2.9 mg/dL Normal 2.5-4.6 [facility] Comment on above: Performed By: #### 9 732258, 6955048, 6441121, 5447606, 9233141936, 8357249, 8878711, 5544009599 ####[facility] (DEFAULT)[address] [place] [address] 84505 Uric Acidon 06-16-2024 Urate [Mass/Vol] 7.2 mg/dL Normal 4.8-8.7 [facility] Comment on above: Performed By: #### 9 103298, 1561514, 7188524, 8931588, 2488969453, 6155910, 3048443, [id number] ####[facility] (DEFAULT)[address] [place] [address] Coding Summaryon 06-13-2024 Coding Summary [facility] IpgdrgpjQKx0pPd+PGhl YWQ+RJ4FSRKrV30bbHWm vF5uX0ZLUMaZNlesLYNL QAsTNuUchdRnBJ9pwJFt ZXJu IC8+AY1iASSmTzjfqPRj c0R1vUB1K32ojz8eEIfw mAQ6NDUyXzKwbjnih4hu hJt1TFrwYdqeDsIe DSPydH01AEZ8jA03Ro38 fCTltTPof7prnHd3HxVz IEFtZSP4iMvrTChue4Ui NEUiM19obJUtk3G1 IGNvbGxhcHNlOyBlbXB0 eR2dBUeitkglp7frzsut Knb1ea94rEOsi2N8lRU6 O4LuxzY2RSGqtDLw DyywgAYYeX2fmiryn1lr wxrwPpKxMWYvFJj1MVf5 JFQtnKjaUsDuPT01RIU4 XYOmgoNxF3SbGTHy hLxnOyE4n1C9Wp5BM9SF BpyrM5BPOHJWKOzrmJP+ IA49ro00C4YjHjjiLtg3 BCHiZFL0eOL3zN6k DEPaFIfbl9S4ePG1T1Hy csNyfl3xa2vhCYKpIAcg Y04xmTAam9L8KTUzdYD3 VGOwxIeoRzTstI30 Oyc+JILekMijc3GmYyhn i7dlg7xunAo8PdmqSFAs qfNchAkaEDE1c5XaGs2g EEHudHK2yHX8rC2m OaQhEwW6SYxxB457AyGz mWMpFdxgQ14rQ2YudBY+ PUYmOle7JAJukNhuQR8b H8JoCCYtngbdvYFa kQxvGZ9mKFVykjhnFJVy uY4yVTPlW7k6TdAoAiU4 SSatB5NiGLNbecihGz33 gS3rWnSyPmU5OIkm E8AzpeL2KXKyoMQcANyo SLP9D66wp3Z1PMGsOSDn XLN3mCK2iG2fnCnmdjwo bGVmdDsgdmVydGlj JKxoAObcV013CAKopXfo PkNvZGluZyBEYXRlOiAg MDkvMjQvMjAyNDwvdGQ+ HBXpKXG5gVorGGCq aKDmICibXw9wuCvqeOzv CX3nWAUfutlcKAKulC2p DOLkvXYtjCezBR5dWSKp ztwxh843ItAdOTS9 TVNrlUVhN7UhqP5xKsAa YNIeFZEpY3TdiHXfHBhj X830PKgsGmF1FEWaslVf X6AnDLYrqSkqGyP9 r3P4Ev4Nu9NoydouL3Tf nIWqNlNyTjncSKo9P9Kb PjwvdHI+CP95CFPgMG24 NZb8BDK4pFzfPScd VARcF0UptO9sQjCoTZEk ZGRkOyc+PHRhYmxlIHdp ZHRoPScxMDAlJyBzdHls ZI7zGl1cVVJdYHQo aYpuaHElDfRyx8xvYDYo OEmrVL9ftJrtF9YnaAV6 ANDbt7h2Uf01U71cC2Ux dXA+HWOqcMJ6gPL0 dE7vNaThYmB3CTkaU262 EvRboMRoXcvno3szw9cw vSm2TiF9AOMdzhRrxGvn ANP1q2DaRs68M36c IHdpZHRoPSIxNSUiIHZh dFyctb8epI3nLo8+PGNv jAE7wXD3mY3kAnYaBoS1 XTqaW427UcJayPLf Lmttl3xfb1pvhEt3PqYo TOCzdkRzyRzbVXT3l6Cc Cl53Q1LxkYezy6ZuWmx7 dg13dKKwd6K6tWO1 O7GxZDHpgxkyoULzyYwy MC1fPHZepsyhNPLtcW8f WPPuF3c8HaKwYyK8TFtv E0UyizW9APJjjNHb MOUhxTFCbB5fywoiy5bn veoyQwJyJJQiYCx0RZo9 UXVopMvpLzZlORL8QnA5 BLO4zMRquU7edCvi vwuapI5fTll+BTZ4iDOl lZGROC0uQqtnlAD+PHRk GZT9wXghEBmoLLAguS0e QMLlY6z7RpVvKtY9 EArgP1LjylP4FXYrpMGs ITVakOGQvV8mcbcco1fk jrkhLxVcTMSlBGj3JYs4 LWFsaWduOiBsZWZ0 BpI9OJE8dFBcnJ1tdNga knhayK0kJjo+QmlydGgg CRK4WSx9B2HqNxr9ODIs lLdgTX3kyIWoGZqd Lh1jrKoanVarOQ1tTIQb fodjh311DoTua3uaJHFt vVFtLCsyGKH4K22bi5N5 IRZuHKAmJRR4nZW8 dN3tjVjaroylaZWlrXnt psWkdBefLIcgSOinR033 DWHmfKfvVoVxVMe3I7Wd Dim5EPZivNtsWY0z nVYfHJxvCj0upMdlqUmz LV4gIDGdommcl910VyGb c7kaMYJwnPDkSFgbFLQ9 C18hm5W2GHJfSKCa KFR9aAU6pV5pcJiiiwst bGVmdDsgdmVydGljYWwt LUxhE423LQGnsAqkYeJf cCe8Z5NnDiw5ERDq mEfpVX3dqFJtAWvvSa5q qGtexHxjVC3iLISaykdh j120EbCsc0jpLUHimXFk WEshOVY8L18rd5E4 GNIfHWTlWIO4qIG1vD2l bGlnbjogbGVmdDsgdmVy oRulNYpoXKmjS846CPRq cDsnPlBhdGllbnQg FXghMIu8B4PcYrmznXL+ AW29URHzGA24zEUniYDs e2xtfJs9TjMgPOQzZUE8 oNivKVjab4TcTUIp X22tuUGxk9W5JILjqAdm lKFhMzDezGK0qC9jCUgi oaivg0ebjiupVxilo9bj qv62bM12B83sMMdy ZHRoPSIzMCUiIHZhbGln uo3blT0wJv8+PGNvbCB3 nTO2aP0uIGTbHtB8PSnr S504EsSheVXfYrbu j6uhs9bmxLi7VqN0AMEr bjWagHvoLEC3l0NqVt72 H23xIUeaJIDqNKZcRLLk DYFxlXkaxg1saM3h Ii8+LUIdzKV8zFU0nB0v ZbUtNbT9ULuoO511MtFi hTGuZeujT25qE4UmhZB+ QPGsIsd6ULCvjNdm OG7efTUtTCizUv2cIDO2 KrOgWkFxOEdrU5BwHDVb paaufmtycNJ7ISXpSYDa mZ04Ds8xjSckESJd xNCZoD6skcrqg6pdylgq CmLiGFOiXAj1PUg6ZVFk zUmiLmSmHCI5XkG5JVD6 pQKsqJ3dnEiefbwq sO1nL7TjXICjmmdwAl53 mE0mFtUxScA2OVkfSfv+ ZTVWVRRQU1UsURvVWnci NTzYJB45Z3BgIcs1 LSBuwQwhAC4okJCpKXst Ur3mcIgupYuhBG4jOLQt wuumFORdsS4jHUZirDJh uIqqXS7vZBEayhmf z968KaEvDYD9RYTnzUEl Q5CurB9kKuPjWBVuFSDh X7GbpXPwJHzxI156YNqw KyA6TAQrdlFbH0Sp KEYbtAtySrI6k7J5Ht3p HI6gQt5xZXM3BO27BP30 oOMvw7L5gQX6W1CkAXSi rqfzxkigoYC9OJQc NSZsoJ51dNUsKZiwGs9n p7K3d465PZGoVRTvfT34 Jf8ktUtxLCPzdPMHxS6z sjweb7mharulHqVw QUAbIKi9EMi5KKPdtQvm BlHiQFG9MdA7UQY6cJXx kQ8uaHviiemycT6xMvt+ BDlfYAYzwyZ4U1Ms Imz6RMCevVlcVZ5kwLLd VGvqOx0sdMzqgWygAL7n TNYyqkqeOUBtcH1dARTc lYCikRwiSV0lSLLe sopob269NrOrHHM3SRSx bHUiJ4EtiF2fZcEwRKQq KTWlZ6RaoUJvYZhyP628 UVopBeJ8YSCakmMr B7QuEAMtvXdpEgU5g6U4 Yf0KCRgFLL42RP32zSEq t5Q5lMS4H6ZxPJMluwek feqkoGC3XAXxIJZg kG01zZGdHQyqTw5dw8J3 s842HPKtYJLczJ62Ru0e iYyaGGCofCOYyD9nskkm l1nojdgjRfOnTKTe FVe3HVa1FFDyxQilJhNv AZA8UkP2ZFP9zRZruL0u vSglamkssJ8gObf+T1A8 P0OpBjjnjNT+PC90 NHDePW23bYAxtDUvk7sa gWo2HoRsSZYsDOY8hHps UCzsw6RqARWxD68ewXKn n4O7RKBqwZyhaUIp NrCvmIL0hJ3uNTorgckg o6znrsrzWefzl5itpl65 fB02E77nCSjjJMUqTQQj AXClORYlhShjbz8f zM2rZv8+MVPmwIZ0jSO8 pU1aDdVbRdU2ZLcoZ533 CwJsdWFzUnhuo2ely9bk nSp8XrOtIKAqzdTi pCnkWMD9z8OgVb60R22q IHdpZHRoPSIyMCUiIHZh oOwbkm9sgH4jUt7+PC9j n8wama71zS86vCJ+ HCWgVJH6eBriZYcwJKQx kB1vKVpsDnV6DHSxLfSp mN51eGNsCYmmPf6uoXxv iEooBW2lWGPebbvz b310ImHrm7fxLDBuyJVy SSnzIYM6N99yx1P6GCQd YOMxFOV6aSQ6hZ1smTpe bjogbGVmdDsgdmVy tTcdXAqiCKqnO439GTDg hCgmQlZtqXKkK6szvrEQ SQ7hMojpjID+PHRkIHN0 rKlyMBfnNUKpgT6b IUVyY3d1FrYzEfY9AZrm R5MgotR3RLHzkEKgJJHv oCPUrQ9nuqvgz1ilusfn WuTiQSDhGXy5XMk7 LXRalGwkVdReWHU8PdS9 WMK0oPIoqO8cyBdtbjuh eA8bRyz+RklOOjwvdGQ+ IPInNID3bBezACec KRNhkU3lCKJbF1l7GwXb CxS6XQmjH7WhscM7SNFw zHCyHGCwnQBCbU7gcvtp k3clxgpnElDhMWTz XRq0YDg0VLFwiIycAjUa NAE5HgL3HIV7sYLiyS7u hEhycevdbP1gAby+TVJO OjwvdGQ+PHRkIHN0 bTgvNYmkZRRitI6cJCRr C8t6YuLiGtS1ZHfcU9Gb hmZ2KEBpzEZgMKZvuEMG hQ4uqvtff6ywubfv TxUlZTVwBCf5SQc2JRUo sQwiKeFqHSL6WaE5VVI4 uVGrhH3yrRfqhgauwE0b Oyc+YPB2TPO2HE44 ZV36T0DxUpzjzZEjsTD+ PHRhYmxlIHdpZHRoPScx KSRlKpQdcSfrQJ3gEc2n ZGVyLWNvbGxhcHNl Oi[facility] (more content not included)... [facility] Surgical Pathology Reporton 08-16-2023 Surgical Pathology Report (NOTE) [id number] [facility] ANATOMIC PATHOLOGY [address] [place] [address]. [place], [place] [address] SURGICAL PATHOLOGY CONSULTATION Patient Name: SANJEEV BLACKBURN MR#: [id number] Specimen #[id number] Procedures/Addenda MOLECULAR PATHOLOGY REPORT Date Ordered: 09/16/2023 Status: Signed Out Date Complete: 09/16/2023 By: Obie Marie M.D. Date Reported: 09/16/2023 INTERPRETATION AT THE REQUEST OF DR. 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 THE RESULTS ARE FOLLOWS: GENOMIC RISK IS: LOW RISK OF METASTASIS WITH RT OR RP: 5 YEAR: 0.5% 10 YEAR: 1.1% RISK OF PROSTATE CANCER MORTALITY WITH RT OR RP: 17 YEAR: 1.2% RISK OF ADVERSE PATHOLOGY AT RP: 18.3% PLEASE SEE [facility]' COMPLETE REPORT ([id number]) FOR DETAILS. Case report, all slides and [...] negative for racemase. Controls are adequate. Normal [facility] Vital Signs Date Time Vital Sign Value Performing Clinician Faci lity 06-15-2024 14:59-0400 Body height 180.3 cm Janine Israel DO Work Phone: [facility] 06-15-2024 14:59-0400 Body mass index (BMI) [Ratio] 34.45 kg/m2 Janine Israel DO Work Phone: [facility] 06-15-2024 14:59-0400 Body weight 112.04 kg Janine Israel DO Work Phone: [facility] 05-18-2024 14:31-0400 Body height 180.3 cm Janine Israel Engiver Work Phone: [facility] 05-18-2024 14:31-0400 Body mass index (BMI) [Ratio] 34.17 kg/m2 Janine Israel DO Work Phone: [facility] 05-18-2024 14:31-0400 Body weight 111.13 kg Janine Israel DO Work Phone: [facility] Encounters Encounter Date Encounter Type Care Provider Facility Start: 06-06-2025 ambulatory [facility] Facility: [facility] Start: 08-28-2024 End: 08-28-2024 Postop follow up visit related to original px Dustin Zuniga EVIDENCE TECHNICIAN Work Phone: [facility] Comment on above: S/P carpal tunnel re lease (Primary Dx); Right wrist pain; Left wrist pain Start: 08-28-2024 End: 08-28-2024 ambulatory DUSTIN ZUNIGA Not Available Start: 08-28-2024 End: 08-28-2024 Bamboo flowsheet Dustin Zuniga EVIDENCE TECHNICIAN Work Phone: [facility] Start: 08-28-2024 End: 08-28-2024 Bamboo flowsheet Dustin Zuniga EVIDENCE TECHNICIAN Work Phone: [facility] Start: 08-03-2024 End: 08-03-2024 Postop follow up visit related to original px Dustin Zuniga EVIDENCE TECHNICIAN Work Phone: [facility] Comment on above: S/P carpal tunnel re lease (Primary Dx) Start: 08-03-2024 End: 08-03-2024 ambulatory DUSTIN ZUNIGA Not Available Start: 08-03-2024 End: 08-03-2024 Bamboo flowsrocio Zuniga NP Work Phone: [facility] Start: 08-03-2024 End: 08-03-2024 Bamboo marilee Zuniga EVIDENCE TECHNICIAN Work Phone: [facility] Start: 07-31-2024 End: 08-08-2024 Telephone encounter Janine Israel DO Work Phone: [facility] Start: 07-24-2024 End: 07-24-2024 ambulatory [facility] Facility:[facility] Start: 07-21-2024 End: 07-23-2024 Refill Dustin Zuniga EVIDENCE TECHNICIAN Work Phone: [facility] Comment on above: S/P carpal tunnel re lease (Primary Dx) Start: 07-20-2024 End: 07-20-2024 ambulatory DUSTIN ZUNIGA Not Available Start: 07-20-2024 End: 07-20-2024 Postop follow up visit related to original px Dustin Zuniga EVIDENCE TECHNICIAN Work Phone: [facility] Comment on above: Right carpal tunnel syndrome (Primary Dx); Right wrist pain; S/P carpal tunnel release Start: 07-20-2024 End: 07-20-2024 Bamboo marilee Zuniga EVIDENCE TECHNICIAN Work Phone: [facility] Start: 07-20-2024 End: 07-20-2024 Bamboo marilee Zuniga EVIDENCE TECHNICIAN Work Phone: [facility] Start: 07-10-2024 End: 07-10-2024 ambulatory [facility] Facility:[facility] Start: 07-07-2024 End: 07-07-2024 Refill Dustin Zuniga EVIDENCE TECHNICIAN Work Phone: [facility] Comment on above: Post-operative pain (Primary Dx) Start: 06-15-2024 End: 06-15-2024 ambulatory JANINE ISRAEL Not Available Start: 06-15-2024 End: 06-15-2024 Office outpatient visit 25 minutes Janine Israel DO Work Phone: [facility] Comment on above: Carpal tunnel syndro me on left (Primary Dx); Left wrist pain Start: 06-15-2024 End: 06-15-2024 Bamboo flowsheet Janine Israel DO Work Phone: [facility] Start: 06-15-2024 End: 06-15-2024 Bamboo flowsheet Janine Israel DO Work Phone: [facility] Start: 05-18-2024 End: 05-18-2024 ambulatory JANINE ISRAEL Not Available Start: 05-18-2024 End: 05-18-2024 Bamboo flowsheet Janine Israel DO Work Phone: [facility] Start: 05-18-2024 End: 05-18-2024 Bamboo flowsheet Janine Israel DO Work Phone: [facility] Start: 05-18-2024 End: 05-18-2024 Office outpatient new 30 minutes Janine Israel DO Work Phone: [facility] Comment on above: Bilateral carpal idalmis lorin syndrome (Primary Dx) Start: 08-16-2023 End: 08-16-2023 ambulatory MISSAEL TEJADA [facility] Start: 12-01-2022 ambulatory JAIR CARPENTER Facilit y:H1 Start: 07-16-2022 ambulatory ROS CM Faci lity:H1 Start: 01-28-2022 ambulatory ROS CM Faci lity:H1 Start: 08-28-2017 End: 08-28-2017 Emergency department patient visit DEV Erin [facility] Start: 03-02-2017 End: 03-03-2017 Ambulatory DEFAULT PHYSICIAN Facility:[facility] Procedures Date Procedure Procedure Detail Performing Clinician History of decompres armand of median nerve S/P carpal tunnel release Dustin Zuniga EVIDENCE TECHNICIAN Work Phone: History of decompres armand of median nerve S/P carpal tunnel release Dustin Zuniga EVIDENCE TECHNICIAN Work Phone: History of decompres armand of median nerve S/P carpal tunnel release Dustin Zuniga EVIDENCE TECHNICIAN Work Phone: History of decompres armand of median nerve S/P carpal tunnel release Dustin Zuniga EVIDENCE TECHNICIAN Work Phone: Plan of Treatment Date Care Activity Detail Author Start: 10-09-2024 End: 10-09-2024 Patient encounter procedure 10/09/2024 3:00 PM EST Office Visit [facility] [address] [place] [phone] Dustin Zuniga NP [address] [place] [address] [facility] Start: 08-28-2024 End: 08-28-2024 Patient encounter procedure [facility] Comment on above: Arrived Start: 08-03-2024 End: 08-03-2024 Patient encounter procedure 08/03/2024 2:30 PM EST Office Visit [facility] [address] [place] [phone] Dustin Zuniga, SIMÓN [address] [place], [place] [id number] [facility] Start: 07-24-2024 End: 07-24-2024 Patient encounter procedure 07/24/2024 10:30 AM EST Procedure Visit [facility] Janine Israel, DO [address] [place] [address] [facility] Start: 07-20-2024 End: 07-20-2024 Patient encounter procedure 07/20/2024 2:45 PM EDT Office Visit [facility] [address] [place] [phone] Janine Israel, DO [address] [place] [address] [facility] Start: 07-18-2024 End: 07-18-2024 Patient encounter procedure 07/18/2024 2:30 PM EDT Office Visit [facility] [address] [place] [phone] Janine Israel, DO [address] [place] [address] [facility] Start: 07-10-2024 End: 07-10-2024 Patient encounter procedure 07/10/2024 9:30 AM EDT Procedure Visit [facility] Janine Israel, DO [address] [place] [address] [facility] Start: 05-21-2024 Influenza vaccination Influenza Vacc ine (#1) [facility] Start: 1965 Screening for malign ant neoplasm of colon [facility] Immunizations Immunization Date Immunization Notes Care Provider Fa cility 06-17-2023 influenza, injectabl e, quadrivalent, preservative free Janine Israel DO Work Phone: [facility] 06-17-2023 influenza virus vacc ine, unspecified formulation Janine Israel DO Work Phone: [facility] 06-23-2022 influenza, injectabl e, quadrivalent, preservative free Janine Israel DO Work Phone: [facility] 07-01-2021 zoster vaccine recombinant Janine Israel DO Work Phone: [facility] 06-04-2021 influenza, injectabl e, quadrivalent, preservative free Janine Israel DO Work Phone: [facility] 02-22-2021 tetanus toxoid, redu patrick diphtheria toxoid, and acellular pertussis vaccine, adsorbed Janine Israel DO Work Phone: [facility] 02-22-2021 zoster vaccine recombinant Janine Israel DO Work Phone: [facility] 06-14-2020 influenza, seasonal, injectable Janine Israel DO Work Phone: [facility] 06-03-2020 influenza, injectabl e, quadrivalent, preservative free Janine Israel DO Work Phone: [facility] 05-18-2019 influenza, injectabl e, quadrivalent, preservative free Janine Israel DO Work Phone: [facility] 06-17-2018 influenza, injectabl e, quadrivalent, preservative free Janine Israel DO Work Phone: [facility] Healthcare Payers Date Payer Category Payer Private Health Insurance [employer] [id number] 2024 Unknown 2024 Unknown [id number] 2016 Unknown [id number] 1967 Unknown [id number] 2..840.1.391737.3.579.2. 593 1967 Unknown [id number] 2..840.1.252060.3.579.2. 593 1967 Unknown [id number] 2..840.1.824585.3.579.2. 593 1967 Unknown [id number] 2.16.840.1.539362.3.579.2. 177 1967 Unknown [id number] 2..840.1.313440.3.579.2. 1259 1967 Unknown [id number] 2.16.840.1.354413.3.579.2. 9 1967 Unknown [id number] 2.16.840.1.259411.3.579.2. 9 1967 Unknown [id number] 2.16.840.1.562755.3.579.2. 9 1967 Unknown [id number] 2.16.840.1.205270.3.579.2. 9 1967 Unknown [id number] 2.16.840.1.476207.3.579.2. 718 1967 Unknown [id number] 2.16.840.1.103813.3.579.2. 718 1959 Unknown [id number] Social History Date Type Detail Facility Start: 05-17-2024 Tobacco smoking stat [facility] Never smoked tobacco [facility] Start: 05-17-2024 Tobacco use and exposure Smokeless t obacco non-user [facility] Start: 05-18-2024 End: 06-15-2024 Alcoholic beverage intake Current drinker of alcohol (finding) [facility] Start: 05-18-2024 End: 06-15-2024 Alcoholic beverage intake [facility] Start: 05-18-2024 End: 06-15-2024 Tobacco use panel [facility] Start: 1965 Sex assigned at Male [facility] Start: 2024 Gender identity Identifies as male gender (finding) [facility] Clinical Notes 05-18-2024 to 08-28-2024 Dustin Zuniga NP - 08/28/2024 [...] has normal right wrist ROM. 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 Range of Motion The patient has normal left wrist ROM. 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 Dustin Zuniga FLIGHT INSTRUCTOR-NURSE PRACTITIONER HOSPITALIST documented in this encounter [facility] 08-09-2024 Note [id number] 08-03-2024 History of Presen t illness [...] new symptoms develop for requiring urgent evaluation. KARISSA Velazquez documented in this encounter [facility] 07-31-2024 Telephone encounter Note That is normal. The new skin that is healing underneath will push up and the skin will start to peel off. Try not to pick at it. [facility] Work Phone: 07-31-2024 Miscellaneous Notes That is normal. The new skin that is healing underneath will push up and the skin will start to peel off. Try not to pick at it. Patient called stating that his incision is raising up. Had carpal tunnel surgery on 07/24. Stats its not hot to the touch. documented in this encounter [facility] 07-31-2024 Telephone encounter Note Patient called stating that his incision is raising up. Had carpal tunnel surgery on 07/24. Stats its not hot to the touch. [facility] 07-24-2024 Note [facility] SURGERY Clinical Discharge Summary PERSON INFORMATION Name SANJEEV BLACKBURN Age 59 Years 1965 Sex MALE Language Greek PCP Dev Perla DO Marital Status Med Service Ambulatory Surgery Acct# Arrival 07/24/2024 12:51:27 Visit Reason SURGERY - RIGHT CARPAL TUNNEL RELEASE Acuity LOS 056 01:15 Address: [address] [place] [id number] Comment: PROVIDER INFORMATION VITALS INFORMATION Vital Sign [...] Follow up: With: Address: When: Dustin Zuniga [address] [place] [address] Business (1) 08/03/2024 2:30 PM DIAGNOSIS Carpal tunnel syndrome, right Comment: PHYS DOC NOTES [facility] 07-24-2024 Note Procedure: Decompres armand of [...] on: 07/24/2024 13:44 EST] Janine Israel DO [facility] 07-21-2024 Telephone encounter Note Post op pain rx. PDMP reviewed [facility] 07-21-2024 Miscellaneous Notes Post op pain rx. PDMP reviewed documented in this encounter [facility] 07-20-2024 History of Presen t illness Narrative [...] Arthritis CTS (carpal tunnel syndrome) 2018 Hypertension ([facility]/HCC) Kidney stones Neuroma of foot 2018 [...] Comments denies dribbling. Incontinence denies. Musculoskeletal: CommentsSee [facility] for details. Skin: Rash denies. Neurologic: [...] as scribe for Dustin Zuniga CNP/errol Zuniga FLIGHT INSTRUCTOR-NURSE PRACTITIONER HOSPITALIST documented in this encounter [facility] 07-13-2024 Note [phone] [id number]#[id number] 07-10-2024 Note Procedure: Decompres armand of [...] Signed on: 07/10/2024 13:28 EDT] Janine Israel Marcelo [Verified on: 07/10/2024 13:28 EDT] Janine Israel DO [facility] 07-10-2024 Note [facility] SURGERY Clinical Discharge Summary PERSON INFORMATION Name SANJEEV BLACKBURN Age 59 Years 1965 Sex MALE Language Greek PCP Dev Perla DO Marital Status Med Service Ambulatory Surgery Acct# Arrival 07/10/2024 11:59:40 Visit Reason SURGERY - LEFT CARPAL TUNNEL RELEASE Acuity LOS 042 00:39 Address: [address] [place] [id number] Comment: PROVIDER INFORMATION VITALS INFORMATION Vital Sign [...] up: With: Address: When: Janine Israel [address] [place] [address] Business (1) 07/20/2024 2:45 PM Type Location Start [facility] 07/24/2024 2:00 PM 07/24/2024 2:30 PM Confirmed DIAGNOSIS Carpal tunnel syndrome, left Comment: PHYS DOC NOTES [facility] 07-07-2024 Telephone encounter Note Post op pain rx. PDMP reviewed [facility] 07-07-2024 Miscellaneous Notes Post op pain rx. PDMP reviewed documented in this encounter [facility] 06-15-2024 History of Presen t illness Narrative [...] Arthritis CTS (carpal tunnel syndrome) 2018 Hypertension ([facility]) Kidney stones Neuroma of foot [...] Comments denies dribbling. Incontinence denies. Musculoskeletal: CommentsSee [facility] for details. Skin: Rash denies. Neurologic: [...] Israel/errol Israel D.O. documented in this encounter [facility] 05-18-2024 History of Presen t illness Narrative [...] Arthritis CTS (carpal tunnel syndrome) 2018 Hypertension (CMS/HCC) Kidney stones Neuroma of foot 2018 ALLERGIES: [...] Israel/errol Israel D.O. documented in this encounter [facility] Healthcare Evaluation note Diagnosis Post-operative pain- Primary Other acute postoperative pain documented in this encounter [facility] HealthcareEvaluation note* Diagnosis Right carpal tunnel syndrome- [...] section and content) DATE CREATED AUTHOR 03/15/2018 [facility] DATE CREATED AUTHOR AUTHOR'S ORGANIZ ATION 03/16/2018 [facility] DATE CREATED AUTHOR AUTHOR'S ORGANIZ ATION 11/28/2022 [facility] DATE CREATED AUTHOR AUTHOR'S ORGANIZ ATION 09/17/2023 [facility] DATE CREATED AUTHOR AUTHOR'S ORGANIZ ATION 08/31/2024 [facility] EPIC DATE CREATED AUTHOR AUTHOR'S ORGANIZ ATION 06/08/2025 [facility] Care Teams (unrecognized sec tion and content) Hospital Administrator Relationship Specialty Start Date End Date Dev Perla MD [address] [place] [phone] PCP - General Family Medicine 05/17/24 Hospital Administrator Relationship Specialty Start Date End Date Dev Perla MD [address] [place] [phone] PCP - General Family Medicine 05/17/24 Hospital Administrator Relationship Specialty Start Date End Date Dev Perla MD [address] [place] [phone] PCP - General Family Medicine 05/17/24 Hospital Administrator Relationship Specialty Start Date End Date Dev Perla MD [address] [place] [phone] PCP - General Family Medicine 05/17/24 Hospital Administrator Relationship Specialty Start Date End Date Dev Perla MD [address] [place] [address] [phone] PCP - General Family Medicine 05/17/24 Hospital Administrator Relationship Specialty Start Date End Date Dev Perla MD [address] [place] [phone] PCP - General Family Medicine 05/17/24 Hospital Administrator Relationship Specialty Start Date End Date Dev Perla MD [address] [place] [address] [phone] PCP - General Family Medicine 05/17/24 Hospital Administrator Relationship Specialty Start Date End Date Dev Perla MD [address] [place] [address] [phone] PCP - General Family Medicine 05/17/24 Hospital Administrator Relationship Specialty Start Date End Date Dev Perla MD [address] [place] [phone] PCP - General Family Medicine 05/17/24 Reason [...] BE BASED ON THE PRIMARY CLINICAL RECORDS. [facility]. provides no warranty or guarantee of the accuracy or completeness of information in this document.
== END 2025-06-22 08:55 | disposition home or self-care (01) ==
LOC: CT 08:54
PROVIDERS: PCP Family Medicine; Visit Provider Podiatrist Foot & Ankle Surgery
DX: M19.071 Primary osteoarthritis, right ankle and foot (principal)
CPT/HCPCS: 73700; 76376

== ENCOUNTER 2025-08-08 07:16 | Outpatient (OUT) | payer OTHER, SELFPAY ==
--- OUTSIDE RECORDS SUMMARY | 2024-04-20 04:00 | XMS_ITS ---
Author Organization The [facility] in [place] Address [address] [place] [address] Care Team Providers Care Tank Refinisher Name Role Phone Dev Ch DO Primary Care Provider Alfonso Khoury [phone] REASON FOR VISIT 6 mo follow up and [facility] Encounters Encounter Location Date Provider Diagnosis Urology [facility] [place] [address] [place] [address] 04/20/2024 Alfonso Schaefer Plan Of Treatment No Information Progress Notes * Sanjeev BLACKBURN ADOB:[birth year] (60 yo M)Acc No.[id number]:04/20/2024 UNLOCKED PROGRESS NOTE Patient:?Sanjeev BLACKBURN :?Alfonso Schaefer MDDOB:1965???Age:58 Y ???Sex:MaleDate:4Phone:[phone]:[address], [place], [id number]:Dev Ch DO Subjective: * Chief Complaints: * 1 . 6 mo follow up and [facility]. * Medical History: Objective: * Vitals: Assessment: Plan: * Treatment: * * Electronic signature of Alfonso Schaefer MD, [id number] on 08/08/2025 at 07:22 AM ESTSign off status: PendingVisit Status:?R/S (Rescheduled) * Provider: Araceli Schaefer MD Date: 0 04/20/2024 Generated for Printing/Faxing/eTransmitting on:?08/08/2025 07:22 AM EST
--- OUTSIDE RECORDS SUMMARY | 2025-03-07 04:00 | XMS_ITS ---
Author Organization [facility] in [place] Address [address] [place] [address] Care Team Providers Care Damascener Name Role Phone Dev Ch DO Primary Care Provider Kyler Armenta [phone] REASON FOR VISIT 6 month f/u Encounters Encounter Location Date Provider Diagnosis [facility] (PODIATRY) [address] [place] [address] [place] [address] 03/07/2025 Kyler Caldera Plan Of Treatment No Information Progress Notes * Sanjeev BLACKBURN ADOB:[birth year] (60 yo M)Acc No.[id number]:03/07/2025 UNLOCKED PROGRESS NOTE Follow Up Patient: Sanjeev CASTRO :?Kyler Caldera DPM, MSDOB:1965???Age: 59 Y???Sex:MaleDate:03/07/2025Phone:[phone]:[address] [place], [place]Oop:eDv Ch DO Subjective: * Chief Complaints: * 1 . 6 month f/u. * Medical History: Objective: * Vitals: Assessment: Plan: * Treatment: * * Electronic signature of Kyler Caldera DPM on 08/08/2025 at 07:22 AM ESTSign off status: PendingVisit Status:?OFF CANC (OFFICE CANCEL) * Provider: Charisse Caldera DPM, MS Date: 0 03/07/2025 Generated for Printing/Faxing/eTransmitting on:?08/08/2025 07:22 AM EST
--- NOTE | 2025-08-08 06:45 | NM_ITS ---
Patient Name: GURVINDER CHAUDHRY MR#: [id number] : 1965 Exam Date: 08/08/2025 Ordering Doctor: AMY GARC[facility] RAD[facility]OLOG[facility] REPORT PROCEDURE: NM GREYSON PERF SPECT REST STR COMPARISON: None. INDICATIONS: PRE PROCEDURE CARDIOVASCULAR EXAM TECHNIQUE: Exam Description: Stress/Rest one day protocol gated SPECT Rest Imagin.5 mCi Tc-99m Cardiolite IV on 08/08/2025 Stress Imaging 31.3 mCi Tc-99m Cardiolite IV on 08/08/2025 Exercise Protocol: 0.4 mg Lexiscan given IV Heart Rate (bpm): Rest: 72 Max: 113 PMHR: 69 Blood Pressure: Rest: 122/78 Max: 141/80 Symptoms: Rest and peak stress ECG findings were pending, and the exercise portion of the study was pending per attending physician [facility]. For more details, please see separate cardiac stress test report. FINDINGS: QUALITY OF STUDY: Adequate PERFUSION DEFECT: LOCATION: N/A SIZE: N/A SEVERITY: N/A TYPE: N/A WALL MOTION: Normal wall motion LV SIZE: 70 mL. TID / TCD: 0.8 LVEF: Calculated EF 73%. SUMMARY: Myocardial perfusion imaging study is normal CONCLUSION: 1. Myocardial perfusion is normal 2. Global left ventricular systolic function is normal; ejection fraction is 73% 3. No significant transient ischemic dilatation Dictated by: Lidia Power M.D. on 08/08/2025 at 13:03 Approved by: Lidia Power M.D. on 08/08/2025 at 13:05
--- OUTSIDE RECORDS SUMMARY | 2025-08-08 07:20 | XMS_ITS | CCD ---
Author Organization [facility] Care Team Providers Care Accounts Receivable Analyst Name Role Phone DEV PERLA Unavailable Unavailable QUIN ROBISON Unavailable Jordanabl e PHYSICIAN, DEFAULT Unavailable Unavailable PHYSICIAN, DEFAULT Unavailable DEV Ayon Unavailable Unavailable ROS CALDERA Admitting Unavailable ELIZABETHANDER, ROS Smith Attending Unavailable ROS CALDERA Consulting Unavailable ROS CALDERA Admitting Unavailable ROS CALDERA Attending Unavailable JAIR CARPENTER Admitting Unavailable JAIR CARPENTER Attending Unavailable MISSAEL TEJADA Admitting Unavailable MISSAEL TEJADA Attending Unavailable DEV PERLA Primary Care Unavailable Dev Perla MD Primary Care Provider [phone] JANINE ISRAEL Attending Unavailable ELI GARCIA Referring Unavailable JANINE ISRAEL Attending Unavailable DUSTIN ZUNIGA Attending Unavailable DUSTIN ZUNIGA Attending Unavailable DUSTIN ZUNIGA Attending Unavailable Dev Perla Primary Care Unavailable Lauri DPM, Jozef Padilla Attending Unavai lable Lauri DPM, Jozef Padilla Attending Unavai lable Lauri DPM, Jozef Padilla Attending Unavai lable Carson DPM, Jozef Padilla Attending Unavai lable Carson DPM, Jozef Padilla Attending Unavai lable Carson DPM, Jozef Padilla Attending Unavai lable Carson DPM, Jozef Padilla Attending Unavai lable Carson DPM, Jozef Padilla Attending Unavai lable Carson DPM, Jozef Padilla Attending Unavai lable Carson DPM, Jozef Padilla Attending Unavai lable Carson DPM, Jozef Padilla Attending Unavai lable Carson DPM, Jozef Padilla Attending Unavai lable Allergies Allergy ClassificationReported Allergen(s)Allergy TypeDate of OnsetReaction(s) Facility (4 sources)cephalexin; Translations: [Keflex]Drug Oxdekpn09-06-2544KOOHbqC[facility] (18 sources)CephalexinDrug Jxcdymi09-19-0584RtrghFX[facility] (1 source)pregabalin; Translations: [Lyrica]Drug AllergyPark[facility] Medications Current Medications MedicationDrug Class(es)DatesSig (Normalized)Sig (Original)acetaminophen 325 mg / HYDROcodone bitartrate 5 mg oral tablet (2 sources)Opioid AgonistStart: 07-23-2024 End: 47-32-7797xgfr 1 tablet by mouth every six hours for painHYDROcodone- acetaminophen ([place]) 5-325 MG tablet Indications: S/P carpal tunnel release Take 1 tablet by mouth every 6 (six) hours if needed for severe pain for up to 3 days 12 tablet 07/23/2024 07/26/2024 ActiveStart: 07-07-2024 End: 38-60-5449jbyb 1 tablet by mouth every six hours for painHYDROcodone- acetaminophen ([place]) 5-325 MG tablet Indications: Post-operative pain Take 1 tablet bymouth every 6 (six) hours if needed for severe pain for up to 3 days 12 tablet 07/07/2024 07/10/2024 Activeallopurinol 100 mg oral tablet (18 sources)Xanthine Oxidase Inhibitorallopurinol (Zyloprim) 100 MG tablet Activecholecalciferol 0.025 mg oral capsule (17 sources)Vitamin DStart: 97-79-5299sffw 1 capsule by mouth once daily cholecalciferol (Vitamin D-3) 25 MCG (1000 UT) capsule TAKE 1 CAPSULE (125 MCG) ORALLY DAILY FOR 90DAYS 09/10/2023 ActivehydroCHLOROthiazide 25 mg / lisinopril 20 mg oral tablet (17 sources)Thiazide Diuretic, Angiotensin Converting Enzyme InhibitorStart: 74-65-4100zknb 1 tablet by mouth once dailylisinopril-hydroCHLOROthiazide 20-25 MG tablet Take 1 tablet by mouth Daily 03/13/2024 Activemeloxicam 15 mg oral tablet (17 sources)Nonsteroidal Anti-inflammatory DrugStart: 10-45-1221wrzpatwcb (Mobic) 15 MG tablet 02/29/2024 Hopyrs53 hr metoprolol succinate 50 mg extended release oral tablet (17 sources)beta-Adrenergic BlockerStart: 61-80-4564goyr 1 tablet by mouth once dailymetoprolol succinate XL (Toprol-XL) 50 MG 24 hr tablet Take 50 mg by mouth Daily 03/21/2024 Activepitavastatin calcium 4 mg oral tablet (18 sources)HMG-CoA Reductase InhibitorPitavastatin Calcium (Livalo) 4 MG tablet ActivetraMADol hydrochloride 50 mg oral tablet (18 sources)Opioid AgonistStart: 25-94-7939zyvWKMkq (Ultram) 50 MG tablet 02/23/2024 Active Problems Active Problems Problem ClassificationProblemDateDocumented DateEpisodic/ChronicEssential hypertension (18 sources)Hypertensive disorder; Translations: [Essential (primary) hypertension]Onset: [id number] connective tissue disease (18 sources)History of arthroplasty of right ankle; Translations: [Presence of right artificial ankle joint]Onset: 504896-00-5105HndbyljZvbzt nervous system disorders (2 sources)Carpal tunnel syndrome of right wrist; Translations: [Carpal tunnel syndrome, right upper limb]35-17-8960HxigpfgPkqpz nervous system disorders (2 sources)Bilateral carpal tunnel syndrome; Translations: [Carpal tunnel syndrome, bilateral upper limbs]59-14-7524QixyhdtSjwpq nervous system disorders (2 sources)Carpal tunnel syndrome of left wrist; Translations: [Carpal tunnel syndrome, left upper limb]62-80-9967VoyssaeFxmjy nervous system disorders (1 source)Postoperative pain ; Translations: [Other acute postprocedural pain] 78-00-0842RgoogxfgYgcxn non-traumatic joint disorders (4 sources)Pain of right wrist; Translations: [Pain in right wrist]07-20-2024 EpisodicOther non-traumatic joint disorders (4 sources)Pain of left wrist; Translations: [Pain in left wrist]08-28-2024 EpisodicOther screening for suspected conditions (not mental disorders or infectious disease) (1 source)Elevated prostate specific antigen [PSA]; Translations: [Elevated prostate specific antigen (PSA)]Onset: 58-70-6769Dpbdombr Past or Other Problems Problem ClassificationProblemDateDocumented DateEpisodic/ChronicCalculus of urinary tract (18 sources)Kidney stone; Translations: [Calculus of kidney]Onset: 05-17-2024 41-07-8255VzbswtriTppnbrsk, including migraine (1 source)Headache; Translations: [Headache]Onset: 86-41-6901Wiyeygjl Results Test NameValueInterpretationReference RangeFacilityCT Ankle/Foot w/o Con Right + Surg Planon 22-84-9792WD Ankle/Foot w/o Con Right + Surg PlanExam Type: CT RIGHT ANKLE/FOOT Exam Date and Time: 07/23/2025 11:52 AM EST Indication: 60 years old Male with pain Comparison: Radiographs 07/23/2025 TECHNIQUE: Axial CT images of the right ankle and foot were obtained without intravenous contrast. Coronal and sagittal reformatted images were obtained. Dose reduction techniques were achieved by using automated exposure control and/or adjustment of mAand/or kV according to patient size and/or use of iterative reconstruction technique. FINDINGS: The knee appears congruent. Mild to moderate tricompartmental osteoarthritis, most significant in the medial compartment with joint space narrowing marginal osteophytes. No joint effusion. No acute fracture identified in the knee. No acute fracture or dislocation identified involving the tibia or fibula. There are surgical changes from talar replacement. Susceptibility artifact limits detailed evaluation. No acute displaced fracture identified involving the hindfoot. Achilles enthesophyte and inferior calcaneal spur are noted. The midfoot appears congruent with mild to moderate osteoarthritis. Lisfranc joint is congruent on this nonweightbearing study. Mild to moderate osteoarthritis of thefirst MTP joint. No bony erosive or resorptive changes identified. The regional soft tissues are without discrete abnormality. IMPRESSION: Postsurgical and degenerative changes without acute osseous abnormality. Radiation Dose Estimate: CTDI(mGy):0.011361 / / / kVp:100.764941 / mAs:0.878240 / / / DLP(mGy- cm):0.151364Uxpk Part: CTDI(mGy):4.862565 / / / kVp:70.995708 / mAs:198.686327 / / / DLP(mGy- cm):300.695687Kzuc Part: Final Dictated by: Chacorta DELAROSA, Pola West Dictated DT/TM: 07.25.2025 8:58 am Signed by: Pola Whatley MD Signed (Electronic Signature): 07.25.2025 9:12 am (If Report Is Signed, Electronically Signed in Other Vendor System)Normal [facility].eGFRon 06-50-9037IBW/1.73 sq M.predicted MDRD (S/P/Bld) [Vol rate/Area]mL/min/{1.73_m2}Normal>=60[facility] HospitalComment on above:Result Comment: [facility] have implemented the eGFR calculation approach that does not havea coefficient for race and that conforms to the NKF-ASN Task Force Recommendations. Stages of Chronic Kidney Disease GFR Stage 1 Normal to mild loss of kidney function ? 90 Stage 2 Mild loss of kidney function 60 - 89 Stage 3a Mild to moderate loss of kidney function 45 - 59 Stage 3b Moderate to severe loss of kidney function 30 - 45 Stage 4 Severe loss of kidney function 15 - 29 Stage 5 Kidney failure < 15 GFR calculated using the CKD-Epi Creatinine Equation (2020): eGFR = 142 X min(SCr/?, 1)? X max(SCr /?, 1)-1.200 X 0.9938Age X 1.012 [if female] Abbreviations/Units: eGFR (estimated glomerular filtration rate) = mL/min/1.73 m2 SCr (standardized serum creatinine) = mg/dL ? = 0.7 (females) or 0.9 (males) ? = -0.241 (females) or -0.302 (males) min = indicates the minimum of SCr/? or 1 max = indicates the maximum of SCr/? or 1 Age = yearsPerformed By: #### EGFR #### [facility] [address] [place] [address]Cxrpg Metabolic Profileon 35-57-0034Bicqf gap [Moles/Vol]8 mmol/LNormal4-12[facility] HospitalComment on above:Performed By: #### CD:[id number] #### [address] [address] [place], [place] [address]ANL Crea Ratio20.8 yuyhyOefucl28.0-25.0[facility] HospitalComment on above:Performed By: #### CD:[id number] #### [address] [address]Kxmglbn [Mass/Vol]9.4 mg/dLNormal8.6-10.3BSouthern [facility] Medical CenterComment on above:Performed By: #### CD:[id number] #### [address] [address]Ouxeztiv [Moles/Vol]103 mmol/IRpiglg68-857RuegxouioParkview Health Montpelier HospitalComment on above:Performed By: #### CD:[id number] #### [address] [address]ZA1 [Moles/Vol]30 mmol/MBnigzw62-52EhiijulvbParkview Health Montpelier HospitalComment on above:Performed By: #### CD:[id number] #### [address] [address]Zkmsoxylip [Mass/Vol]0.96 mg/dLNormal0.70-1.30[facility] HospitalComment on above:Performed By: #### CD:[id number] #### [address] [address]Uxosnsb [Mass/Vol]86 mg/dVXeyheu14-97LljhkugwkParkview Health Montpelier HospitalComment on above:Performed By: #### CD:[id number] #### [address] [address]Ueqcqywvy [Moles/Vol]3.8 mmol/LNormal3.4-4.8BSouthern Ohio Medical CenterComment on above:Performed By: #### CD:[id number] #### [address] [address]Fqpyxk [Moles/Vol]141 mmol/DMwmfjz613-761YpapvcayzParkview Health Montpelier HospitalComment on above:Performed By: #### CD:[id number] #### [address] [address]Bssh nitrogen [Mass/Vol]20 mg/dLNormal7-25[facility] HospitalComment on above:Performed By: #### CD:[id number] #### [address] [address]CFY w/ Diffon 43-21-8425Wbuidwacayn distribution width (RBC) [Ratio]13.6 %Zevrmh04.6-14.8BSouthern Ohio Medical CenterComment on above: Performed By: #### CBC #### [address] [address]Mskyyfiegj (Bld) [Volume fraction]43.6 %Malxll64.0-53.0 [facility] HospitalComment on above:Performed By: #### CBC #### [address] [address]Ooczobteew (Bld) [Mass/Vol]14.8 g/kHXgbqhe23.5-17.5BSouthern Ohio Medical CenterComment on above:Performed By: #### CBC #### [address] [address]MXP (RBC) [Entitic mass]30.8 fwLysqjg76.0-35.0[facility] HospitalComment on above:Performed By: #### CBC #### [address] [address]BALK97.1 %Thaprh64.0-37.0[facility] HospitalComment on above:Performed By: #### CBC #### [address] [address]BMP (RBC) [Entitic vol]90.3 gCDwzduj45.0-100.0[facility] HospitalComment on above:Performed By: #### CBC #### [address] [address]Srdktbur671 x10*3/agMBloasr210-037WymcrkowoParkview Health Montpelier HospitalComment on above:Performed By: #### CBC #### [address] [address]Kflprodw mean volume (Bld) [Entitic vol]8.6 fLNormal6.7-10.6 [facility] HospitalComment on above:Performed By: #### CBC #### [address] [address]ECO3.83 x10*6/mcLNormal4.30-5.80[facility] Comment on above:Performed By: #### CBC #### [address] [address]ELD9.7 x10*3/mcLLow4.5-11.0[facility] Comment on above:Performed By: #### CBC #### [address] [address]RUAtj 69-33-2759DTP [Mass/Vol]2.4 mg/LNormal0.0-9.9BSouthern Ohio Medical CenterComment on above:Result Comment: For normal applications of CRP: 10 - 50 mg/L indicates mild inflammation 50 - 100 mg/L indicates more severe inflammation >100 mg/L indicates serious processeses and frequently indicates the presence of a bacterial infection CRP measurement is useful for assessment of non-specific INFLAMMATORY RESPONSE to infection or injury AND is a sensitive marker of ACUTE INFLAMMATION including CARDIAC RISK ASSESSMENT. CARDIAC patients with elevated CRP are POTENTIALLY at a HIGHER RISK of FUTURE CARDIAC EVENTS.Performed By: #### CRP #### [address] [address]Wkfi Autoon 67-74-8412Gzgf Absolute0.0 x10*3/mcLNormal0.0-0.2 [facility] HospitalComment on above:Performed By: #### .Automated Diff ####[address] [address] Basophils/100 WBC (Bld)1.0 %Normal0.0-1.2BSouthern Ohio Medical CenterComment on above:Performed By: #### .Automated Diff ####[address] [address]Cmn Absolute0.2 x10*3/mcLNormal0.0-0.4 [facility] HospitalComment on above:Performed By: #### .Automated Diff ####[address] [address] Eosinophils/100 WBC (Bld)4.4 %Normal0.0-6.1BSouthern Ohio Medical CenterComment on above:Performed By: #### .Automated Diff ####[address] [address]Dvywa Absolute0.9 x10*3/mcLLow1.0-4.8BSouthern Ohio Medical CenterComment on above:Performed By: #### .Automated Diff ####[address] [address] Lymphocytes/100 WBC (Bld)24.0 %Low27.2-40.8BSouthern Ohio Medical CenterComment on above:Performed By: #### .Automated Diff ####[address] [address]Pboi Absolute0.4 x10*3/mcLNormal0.3-1.1 [facility] HospitalComment on above:Performed By: #### .Automated Diff ####[address] [address] Monocytes/100 WBC (Bld)10.8 %Normal4.7-13.9BSouthern Ohio Medical CenterComment on above:Performed By: #### .Automated Diff ####[address] [address]Eeqfbd Absolute2.2 x10*3/mcLNormal1.8-7.7 [facility] HospitalComment on above:Performed By: #### .Automated Diff ####[address] [address]Zgrhmz Auto59.8 %Ckkqig63.2-70.8BSouthern Ohio Medical CenterComment on above: Performed By: #### .Automated Diff ####[address] [address]SQRmz 49-96-3761Fmb Rate19 mm/hrNormal0-23[facility] HospitalComment on above:Performed By: #### ESR #### [address] [place], [place] [address]Menwnzcy Office/Clinic Noteon 42-97-6004Zjsungkf Office/Clinic NoteChief Complaint NEW: right ankle pain (Dr. Caldera) History of Present Illness Patient is a 60 Years old Male who presents to the outpatient clinic as a NEW Patient with his wifeJody for right ankle pain. Patient was referred to our office by Dr. Rso Caldera for right ankle pain. Patient has had a lot of issues with his right ankle for several years. He use to roll his ankles all the time and has ankle instability. Due to the rolling of his ankles he had impingement. About 2 years ago he had a right talus implant and through his healing he was given a compound creamto use. While using that cream he was in full sun and developed hives and was itching the area around his ankle and developed an infection. Due to the infection he underwent two surgeries to debride the area. He was also on an antibiotic for three weeks. Patient states that he has healed from the surgeries now but at this time since March is in constant severe pain. He has to use crutches or a knee scooter to ambulate due to the pain as he can only walk 2-4 steps before severe pain sets in. The pain is sharp and localized to the ankle, heel and achilles areas. He states he would like to talk about surgical options to help alleviate the pain and correct the current problem he is now having. He is ready to proceed as soon as possible with surgery. He has no problems with shoe gear being an issue to his feet. Patient denies any other pedal complaints. Patient denies any nausea, vomiting, fever, chills, chest pain or shortness of breath. Review of Systems Noted in HPI Physical Exam FOCUSED LOWER EXTREMITY EXAM: VASCULAR: DP and PT pulses are palpable bilaterally. CFT is less than 3 seconds to bilateral distal digits. Skin temperature is warm to warm from proximal to distal. Increased warmth noted to the anterior right ankle. There is significant edema surrounding the right ankle, no localized abscess or palpable fluctuance noted. No ecchymosis noted to bilateral lower extremities. Varicosities present to bilateral lower extremities. NEURO: Light touch sensation intact to bilateral lower extremities. Patient notes subjective paresthesias to right lower extremity with hypersensitivity to the right foot and ankle. Positive Tinel's sign tothe right tarsal tunnel, right SPN, right DPN, and right sural nerve. DERM: Prior scar incision sites are healed with no open ulcerations or lesions to bilateral lower extremities. Skin is mildly atrophic to the right foot and ankle. Hemosiderin deposition noted to the rightfoot and ankle. No erythema or local signs of infection to the right lower extremity. MSK: Patient is ambulatory. Manual muscle testing strength is 4/5 to muscle groups to the right lower extremity secondary to pain. Right ankle unable to dorsiflex past neutral due to pain and osseous stopof the right ankle. Right lower extremity with tibial varum and right calcaneus in mild varus position in stance position. Unable to fully assess Silfverskiold test due to pain and osseous stop of right ankle joint. Severe pain with right subtalar joint attempted range of motion. Unable to fully assess right lateral ankle ligaments due to pain. Hypertrophy of the right peroneal tendons. Contracture of the right posterior tibial tendon with pain along the distal insertion. Pain to the plantar right heel and along the right peroneal tendons. Right foot semireducible digital contractures. Cavus foot type noted to the right lower extremity. No pain with proximal calf squeeze. Compartments are soft and compressible. Diagnostic Results Weightbearing right foot 2 view, right calcaneus 2 view, and right ankle 2 view x-rays taken today (AP/MO/Calcaneal axial/Lateral/AP ankle/Ankle mortise): Independent interpretation: History of righttotal talus replacement. Signs of cartilage wear to the distal tibia with some varus tilt of the total talus implant consistent with medial ankle mortise wear with subchondral wear. There does appearto be some syndesmotic widening, would be better visualized under stress views. Increased soft tissue density to the anterior right ankle. Cystic changes and burring to the distal right fibula. Scarring to the anterior right ankle joint noted. Dorsal spurring of the navicular at the TN joint. Small plantar and posterior calcaneal spurs noted. Increased right calcaneal inclination angle with cavusfoot type. On AP radiograph, increased talar head uncovering with increased angulation between the talar first metatarsal bisection. Increased kites angle noted on AP radiograph. Appears to be diastases at the right Lisfranc ligament and arthritic changes of the right 2nd and 3rd tarsometatarsal joints. Arthritic changes of the right first MPJ with bipartite tibial and fibular sesamoid bones. Flexion contractures noted at the interphalangeal joints of digits 1 through 5. Kager's triangle intact. Subchondral sclerosis noted to the right ankle joint/distal tibia as well as the right subtalar joint/calcaneus. Righ (more content not included)...Normal [facility] HospitalXR Ankle 2 Views Righton [id number] Ankle 2 Views RightWeightbearing right foot 2 view, right calcaneus 2 view, and right ankle 2 view x-rays taken today (AP/MO/Calcaneal axial/Lateral/AP ankle/Ankle mortise): Independent interpretation: History of righttotal talus replacement. Signs of cartilage wear to the distal tibia with some varus tilt of the total talus implant consistent with medial ankle mortise wear with subchondral wear. There does appearto be some syndesmotic widening, would be better visualized under stress views. Increased soft tissue density to the anterior right ankle. Cystic changes and burring to the distal right fibula. Scarring to the anterior right ankle joint noted. Dorsal spurring of the navicular at the TN joint. Small plantar and posterior calcaneal spurs noted. Increased right calcaneal inclination angle with cavusfoot type. On AP radiograph, increased talar head uncovering with increased angulation between the talar first metatarsal bisection. Increased kites angle noted on AP radiograph. Appears to be diastases at the right Lisfranc ligament and arthritic changes of the right 2nd and 3rd tarsometatarsal joints. Arthritic changes of the right first MPJ with bipartite tibial and fibular sesamoid bones. Flexion contractures noted at the interphalangeal joints of digits 1 through 5. Kager's triangle intact. Subchondral sclerosis noted to the right ankle joint/distal tibia as well as the right subtalar joint/calcaneus. Right tibial varum noted. Posterior right ankle joint effusion noted on lateral radiograph. Significant soft tissue edema noted surrounding the right ankle joint. No soft tissue emphysema noted. No obvious signs of bony erosion or osteomyelitis noted. No obvious acute fractures or disl ocations noted. Final Signed by: Jozef Carreon DPM Signed (Electronic Signature): 07/23/2025 9:32 am Transcribed DT/TM: 07/23/2025 9:32 (If Report Is Signed, Electronically Signed in Other Vendor System)Normal [facility] HospitalXR Calcaneous Righton [id number] Calcaneous RightWeightbearing right foot 2 view, right calcaneus 2 view, and right ankle 2 view x-rays taken today (AP/MO/Calcaneal axial/Lateral/AP ankle/Ankle mortise): Independent interpretation: History of righttotal talus replacement. Signs of cartilage wear to the distal tibia with some varus tilt of the total talus implant consistent with medial ankle mortise wear with subchondral wear. There does appearto be some syndesmotic widening, would be better visualized under stress views. Increased soft tissue density to the anterior right ankle. Cystic changes and burring to the distal right fibula. Scarring to the anterior right ankle joint noted. Dorsal spurring of the navicular at the TN joint. Small plantar and posterior calcaneal spurs noted. Increased right calcaneal inclination angle with cavusfoot type. On AP radiograph, increased talar head uncovering with increased angulation between the talar first metatarsal bisection. Increased kites angle noted on AP radiograph. Appears to be diastases at the right Lisfranc ligament and arthritic changes of the right 2nd and 3rd tarsometatarsal joints. Arthritic changes of the right first MPJ with bipartite tibial and fibular sesamoid bones. Flexion contractures noted at the interphalangeal joints of digits 1 through 5. Kager's triangle intact. Subchondral sclerosis noted to the right ankle joint/distal tibia as well as the right subtalar joint/calcaneus. Right tibial varum noted. Posterior right ankle joint effusion noted on lateral radiograph. Significant soft tissue edema noted surrounding the right ankle joint. No soft tissue emphysema noted. No obvious signs of bony erosion or osteomyelitis noted. No obvious acute fractures or disl ocations noted. Final Signed by: Jozef Carreon DPM Signed (Electronic Signature): 07/23/2025 9:31 am Transcribed DT/TM: 07/23/2025 9:31 (If Report Is Signed, Electronically Signed in Other Vendor System)Normal [facility]XR Foot 2 Views Righton [id number] Foot 2 Views RightWeightbearing right foot 2 view, right calcaneus 2 view, and right ankle 2 view x-rays taken today (AP/MO/Calcaneal axial/Lateral/AP ankle/Ankle mortise): Independent interpretation: History of righttotal talus replacement. Signs of cartilage wear to the distal tibia with some varus tilt of the total talus implant consistent with medial ankle mortise wear with subchondral wear. There does appearto be some syndesmotic widening, would be better visualized under stress views. Increased soft tissue density to the anterior right ankle. Cystic changes and burring to the distal right fibula. Scarring to the anterior right ankle joint noted. Dorsal spurring of the navicular at the TN joint. Small plantar and posterior calcaneal spurs noted. Increased right calcaneal inclination angle with cavusfoot type. On AP radiograph, increased talar head uncovering with increased angulation between the talar first metatarsal bisection. Increased kites angle noted on AP radiograph. Appears to be diastases at the right Lisfranc ligament and arthritic changes of the right 2nd and 3rd tarsometatarsal joints. Arthritic changes of the right first MPJ with bipartite tibial and fibular sesamoid bones. Flexion contractures noted at the interphalangeal joints of digits 1 through 5. Kager's triangle intact. Subchondral sclerosis noted to the right ankle joint/distal tibia as well as the right subtalar joint/calcaneus. Right tibial varum noted. Posterior right ankle joint effusion noted on lateral radiograph. Significant soft tissue edema noted surrounding the right ankle joint. No soft tissue emphysema noted. No obvious signs of bony erosion or osteomyelitis noted. No obvious acute fractures or disl ocations noted. Final Signed by: Jozef Carreon DPM Signed (Electronic Signature): 07/23/2025 9:32 am Transcribed DT/TM: 07/23/2025 9:32 (If Report Is Signed, Electronically Signed in Other Vendor System)Normal [facility] HospitalCMP Standardon 32-42-4687oGEN Non AA>60Invalid Interpretation [facility] HealthComment on above:Performed By: #### 2484495, 7482949, 7534131, 1649178, 6199904, 7658622545, 0159584687, 8017959 #### [facility] (DEFAULT) [address] [place] [address] 90570bLDI AA>60Invalid Interpretation [facility] Comment on above:Performed By: #### 3272322, 4773637, 1103114, 0187713, 8862515, 9118106528, 5771542328, 5656866 #### [facility] (DEFAULT) [address] [place] [address] 90104Ebjtnzo [Mass/Vol]4.0 g/dLNormal3.5-5.0[facility] Comment on above:Performed By: #### 7407797, 4961711, 2744911, 9734477, 9551441, 8633209008, 5399718809, 7698052 #### [facility] (DEFAULT) [address] [place] [address] 40833Ovvwlox/Globulin [Mass ratio]1.3 {ratio}Low1.4-2.6[facility] HospitalComment on above:Performed By: #### 9764421, 1372464, 6197074, 4077166, 4753689, 7666645994, 2381944776, 5133609 #### [facility] (DEFAULT) [address] [place] [address] 83520Sts Phos49 IU/RGenvah30-52Gjycwngt HospitalComment on above:Performed By: #### 5166914, 1601820, 8306714, 3833309, 2773355, 2102065502, 6717704759, 1345383 #### [facility] (DEFAULT) [address] [place] [address] 35859WVH [Catalytic activity/Vol]22.0 U/ELximad97.0-63.0 [facility] HealthComment on above:Performed By: #### 6670348, 0447426, 0512486, 4236110, 1003316, 6731599445, 0774417257, 3564479 #### [facility] (DEFAULT) [address] [place] [address] 39969Rnnlt gap [Moles/Vol]14.5 mmol/LNormal5.0-19.0Uc HealthComment on above:Performed By: #### 2696839, 0526517, 0309291, 4086216, 2186618, 2933381425, 3106951360, 8914064 #### [facility] (DEFAULT) [address] [place] [address] 15300BJQ [Catalytic activity/Vol]24 U/SGbvudi53-18Wvxpkdpv HospitalComment on above:Performed By: #### 3205858, 2009098, 6320516, 9216716, 5625733, 9487214873, 6888935844, 9095212 #### [facility] (DEFAULT) [address] [place] [address] 79852Nmbw Total0.6 mg/dLNormal0.3-1.2[facility] HospitalComment on above:Performed By: #### 7168428, 9827081, 1287712, 6688920, 2782114, 1213061120, 3311434889, 7870444 #### [facility] (DEFAULT) [address] [place] [address] 99685Wvbaivb [Mass/Vol]8.8 mg/dLLow8.9-10.3[facility] Comment on above:Performed By: #### 3930289, 5734984, 4076074, 9039597, 6891761, 5506263686, 9409502282, 2970643 #### [facility] (DEFAULT) [address] [place] [address] 14700Fklkxqfd [Moles/Vol]100 mmol/TJxy681-963Vwozfypd Hospital Comment on above:Performed By: #### 9159129, 7750808, 1603883, 9269886, 0661101, 0750960149, 1279358340, 2089642 #### [facility] (DEFAULT) [address] [place] [address] 21526CV5 [Moles/Vol]26 mmol/VCrialf97-05Wdzowbjh Hospital Comment on above:Performed By: #### 3777452, 3008495, 7412072, 4623257, 8512752, 6460805906, 5877165114, 1961711 #### [facility] (DEFAULT) [address] [place] [address] 94093Hpmnhxkrgs [Mass/Vol]1.02 mg/dLNormal0.90-1.30[facility] HospitalComment on above:Performed By: #### 3462402, 7105221, 0793305, 3342710, 6501382, 4522100527, 5260901679, 0840404 #### [facility] (DEFAULT) [address] [place] [address] 86798Crpxtonl (S) [Mass/Vol]2.9 g/dLNormal1.5-4.3[facility] HospitalComment on above:Performed By: #### 7192352, 0960653, 5128914, 1743809, 8066228, 5314536652, 3069896648, 4692196 #### [facility] (DEFAULT) [address] [place] [address] 92159Wlcimsk [Mass/Vol]82.0 mg/gZVukazt11.0-118.0[facility] HospitalComment on above:Performed By: #### 2575085, 8091393, 0036428, 7033513, 0896970, 6606492673, 5954026016, 4274074 #### [facility] (DEFAULT) [address] [place] [address] 00809Odtngjqdnp903 mOsm/LInvalid Interpretation CodeUc HealthComment on above:Performed By: #### 3566663, 5319399, 1442466, 7397591, 3938510, 9917405489, 3636286433, 9387289 #### [facility] (DEFAULT) [address] [place] [address] 83006Gnlgzhalz [Moles/Vol]3.5 mmol/LLow3.6-5.1[facility] Hospital Comment on above:Performed By: #### 3995377, 9444506, 6753646, 0049089, 8748430, 1233627497, 3368348201, 7807077 #### [facility] (DEFAULT) [address] [place] [address] 53437Dcotcge [Mass/Vol]6.9 g/dLNormal6.5-8.1[facility] Comment on above:Performed By: #### 9452651, 1006966, 9582056, 8661624, 1706069, 2827917047, 4870687228, 4969526 #### [facility] (DEFAULT) [address] [place] [address] 88805Svzqsv [Moles/Vol]137.0 mmol/YPhgkgy624.0-144.0[facility] HospitalComment on above:Performed By: #### 7526593, 2123723, 6499146, 9777932, 2600521, 1386859730, 0374962491, 0090257 #### [facility] (DEFAULT) [address] [place] [address] 02962Bnjl nitrogen [Mass/Vol]27 mg/dLHigh8-[facility] Comment on above:Performed By: #### 8189396, 0689846, 1466365, 7829215, 8564202, 3582214382, 8033600493, 0967967 #### [facility] (DEFAULT) [address] [place] [address] 50772Ylti nitrogen/Creatinine [Mass ratio]26.4 mg/mgHigh 4.6-16.2[facility] HospitalComment on above:Performed By: #### 5684010, 1985325, 7455880, 1209507, 3642277, 7361147062, 4558823078, 1617245 #### [facility] (DEFAULT) [address] [place] [address] 76778VALxe 95-80-7500Vollo glutamyl transferase [Catalytic activity/Vol]22.0 U/LNormal7.0-50.0Uc HealthComment on above:Performed By: #### 6893124, 0133560, 5010646, 9887507, 6830824, 1481353662, 1775588902, 8128001 #### [facility] (DEFAULT) [address] [place] [address] 74323Bqxw Levelon 14-69-3824Oydu [Mass/Vol]89.0 ug/dLNormal 45.0-182.0[facility] HospitalComment on above:Performed By: #### 1605606, 9557664, 6951651, 5410701, 4413934, 4263605110, 5740762277, 4673849 #### [facility] (DEFAULT) [address] [place] [address] 44914ZWGoe 58-22-5848FKA886.0 IU/LHigh98.0-192.0[facility] HospitalComment on above:Performed By: #### 3074250, 8659777, 9268784, 2022889, 5879550, 4322727065, 6076743379, 2290735 #### [facility] (DEFAULT) [address] [place] [address] 19138Caoxu Panel Standardon 02-52-6569Tlhamyfaebs [Mass/Vol] 215.0 mg/rIVvbu55.0-200.0[facility] HospitalComment on above:Performed By: #### 4422328, 8789027, 4599749, 4718039, 1539330, 8919119536, 0242186553, 3732952 #### [facility] (DEFAULT) [address] [place] [address] 52858Vbqywclnmgo in HDL [Mass/Vol]50 mg/jMHsghal54-03Etghdpjp HospitalComment on above:Performed By: #### 4744245, 5228781, 6425398, 4818177, 6160712, 1475528685, 4516894479, 8447001 #### [facility] (DEFAULT) [address] [place] [address] 35708Aikprmrpcyu in LDL [Mass/Vol]142 mg/dLHigh1-100[facility] HospitalComment on above:Performed By: #### 4245891, 8273336, 7319885, 6547886, 0405918, 5601354376, 3781250789, 9017053 #### [facility] (DEFAULT) [address] [place] [address] 93245Bwxwbitgyom.total/Cholesterol in HDL [Mass ratio]4.2 {ratio}Normal0.0-4.5[facility] HospitalComment on above:Performed By: #### 6575062, 9664296, 4214853, 0636138, 6806286, 6721207045, 3532556579, 3725277 #### [facility] (DEFAULT) [address] [place] [address] 98506Xohlxilvspiz [Mass/Vol]116.0 mg/dLNormal0.0-150.0[facility] HospitalComment on above:Performed By: #### 8538322, 5999779, 1237574, 3643147, 8824095, 3975731686, 5967579484, 0663452 #### [facility] (DEFAULT) [address] [place] [address] 95881XXQA.23 mg/dLNormal5-40[facility] HospitalComment on above: Performed By: #### 0937324, 6988107, 0306411, 0078408, 0540636, 7904129155, 8001029821, 5323719 #### [facility] (DEFAULT) [address] [place] [address] 30980HEB Screenon 25-61-9131RMP Screen8.65 ng/mLHigh0.00-4.00 [facility] HealthComment on above:Result Comment: [employer] Access Clinical System (Chemiluminescence) Values obtained with different assay methods or kits cannot be used interchangeably. Results cannotbe interpreted as absolute evidence of the presence or absence of malignant disease. Performed By: #### 1401983, 1136912, 5151111, 3956861, 8678646, 8432530186, 5316694195, 7939479 #### [facility] (DEFAULT) [address] [place] [address] 26355Wgrfdk 24-20-2263Lftonazah [Mass/Vol]2.6 mg/dLNormal 2.5-4.6M[facility] HospitalComment on above:Performed By: #### 7982068, 0931962, 8471808, 0403231, 6851463, 6613069181, 1928506584, 8605864 #### [facility] (DEFAULT) [address] [place], [place] [address]Lavr Acidon 39-59-0253Chmgw [Mass/Vol]6.0 mg/dLNormal 4.8-8.7Uc HealthComment on above:Performed By: #### 5182950, 7714832, 7660233, 5362822, 1147349, 0887309771, 2554168508, 2379722 #### [facility] (DEFAULT) [address], [place] [address]Dcvbpt Summaryon 71-73-3851Rbhggb SummaryHTMLBase 64 AluyqakjGFu6rJa+PGhlYWQ+AS5APMOmE01ebUImxY0xG1IZBXpWVwcpCNKSRSvIGuQxmxFzLG5hfTZd ZXJu [file] LWN (more content not included)...[facility] Pathology Reporton 29-96-7567Hxglzash Pathology Report(NOTE) [id number] [facility] CONSULTING PATHOLOGISTS [facility] ANATOMIC PATHOLOGY [address] [place] [phone] SURGICAL PATHOLOGY CONSULTATION Patient Name: SANJEEV BLACKBURN MR#: [id number] Specimen #[id number] Procedures/Addenda MOLECULAR PATHOLOGY REPORT Date Ordered: 09/16/2023 Status: Signed Out Date Complete: 09/16/2023 By: Obie Marie M.D. Date Reported: 09/16/2023 INTERPRETATION AT THE REQUEST OF DR. MISSAEL TEJADA, BLOCK D1 WAS SENT TO [employer] FOR DECIPHER PROSTATE BIOPSY GENOMIC CARPENTER GENERAL TESTING. THE RESULTS ARE FOLLOWS: GENOMIC RISK IS: LOW RISK OF METASTASIS WITH RT OR RP: 5 YEAR: 0.5% 10 YEAR: 1.1% RISK OF PROSTATE CANCER MORTALITY WITH RT OR RP: 15 YEAR: 1.2% RISK OF ADVERSE PATHOLOGY AT RP: 18.3% PLEASE SEE [employer] COMPLETE REPORT ([id number]) FOR DETAILS. Case report, all slides and [...] Pathologist who concurs with the diagnosis ([facility]). Riccardo Hutson Electronically Signed Out 08/19/2023 Clinical [...] Glands are negative for racemase. Controls are adequate.Normal[facility] Vital Signs Date TimeVital SignValuePerforming LfevmeypiBensrahl47-00-2984 14:59-0400Body jutvlf432.3 cmJanine WolfeLindy DO Work Phone: [facility] CenterRlnjwbqhnj85-58-2012 14:59-0400Body mass index (BMI) [Ratio]34.45 kg/h0ZficrJanine WolfeLindy DO Work Phone: [facility] CenterGtagrvalec31-62-3006 14:59-0400Body mmqmyb784.04 kgJanine Lindy DO Work Phone: [facility] CenterSnbyyvdoys89-32-5690 14:31-0400Body volflz367.3 cmJanine Owenston DO Work Phone: [facility] CenterXqujehrtez89-12-1689 14:31-0400Body mass index (BMI) [Ratio]34.17 kg/j6Lwedu Lindy DO Work Phone: [facility] CenterZfevepgkax64-84-2713 14:31-0400Body .13 kgJanine Israel DO Work Phone: [facility] Encounters Encounter DateEncounter TypeCare ProviderFacilityStart: 06-15-6606snygbxpkrq Jozef Carreon DPMFacility:[facility] Campustart: 07-31-2025 ambulatoryDaboni Carreon DPMFacility:[facility] HospitalStart: 16-63-4652izfrfprerlWogcjm Robert Elbert DPMFacility:[facility] CtrStart: 07-23-2025 End: 39-06-3285efqmfbeyicGcdzfmKayla Carreon DPMFacility:[facility] Start: 07-23-2025 End: 44-30-0785vpvdadvzrcLckgvs Robert Elbert DPMFacility:[facility] CtrStart: 06-15-2025 End: 33-80-8012gjwhsglodhBdud W SteeleFacility:[facility] Cincinnatitart: 08-28-2024 End: 24-30-2863Ifnmur follow up visit related to original Maya Zuniga WEED INSPECTOR Work Phone: NOV[facility] FB ORTHOPAEDICSComment on above:S/P carpal tunnel release (Primary Dx); Right wrist pain; Left wrist painStart: 08-28-2024 End: 93-99-0502orurcpnjlmWGXLV Kameron OLSENNot AvailableStart: 08-28-2024 End: 92-06-7707Mkvwaa flowsChantel Zuniga WEED INSPECTOR Work Phone: [facility]THOPAEDICSStart: 08-28-2024 End: 52-43-2409Uzuzng flowsChantel Zuniga WEED INSPECTOR Work Phone: NOEF FB ORTHOPAEDICSStart: 08-03-2024 End: 04-96-6492Iydcub follow up visit related to original pxAdielt Kameron Zuniga WEED INSPECTOR Work Phone: N[facility] FB ORTHOPAEDICSComment on above:S/P carpal tunnel release (Primary Dx)Start: 08-03-2024 End: 60-33-2949imrwqnvyeyIIIND T OLSENNot AvailableStart: 08-03-2024 End: 86-88-9077Bouyxs marileeDustin Zuniga WEED INSPECTOR Work Phone: [facility] ORTHOPAEDICSStart: 08-03-2024 End: 32-96-7992Jtfwoe marileeDustin Kameron Som WEED INSPECTOR Work Phone: [facility] ORTHOPAEDICSStart: 07-31-2024 End: 28-27-2699Jcjulhvoh encounterJanine Israel DO Work Phone: NOV[facility] FB ORTHOPAEDICSStart: 07-21-2024 End: 05-01-2413AtekxxMeccc T Olsen WEED INSPECTOR Work Phone: NOKA FB ORTHOPAEDICSComment on above:S/P carpal tunnel release (Primary Dx)Start: 07-20-2024 End: 93-03-0788auunmzovzaVEMPI T OLSENNot AvailableStart: 07-20-2024 End: 45-71-7039Grzepw follow up visit related to original marianDustin Zuniga WEED INSPECTOR Work Phone: [facility] FB ORTHOPAEDICSComment on above:Right carpal tunnel syndrome (Primary Dx); Right wrist pain; S/P carpal tunnel releaseStart: 07-20-2024 End: 59-61-0952Aegjvw Tina Zuniga WEED INSPECTOR Work Phone: [facility] ORTHOPAEDICSStart: 07-20-2024 End: 62-23-1294Npvxul Tina Zuniga WEED INSPECTOR Work Phone: [facility] FB ORTHOPAEDICSStart: 07-07-2024 End: 46-45-3736JcuhsxEoujo T Olsen WEED INSPECTOR Work Phone: [facility] FB ORTHOPAEDICSComment on above:Post-operative pain (Primary Dx)Start: 06-15-2024 End: 84-13-8847smdlnnbadfODBOL A HUDDLESTONNot AvailableStart: 06-15-2024 End: 52-17-6554Ljfaic outpatient visit 25 minutesJanine Israel DO Work Phone: [facility] FB ORTHOPAEDICSComment on above:Carpal tunnel syndrome on left (Primary Dx); Left wrist painStart: 06-15-2024 End: 55-69-3728Rghtdg flowsheetJames A Lindy DO Work Phone: [facility] FB ORTHOPAEDICSStart: 06-15-2024 End: 74-39-7229Wykygt flowsheetJames A Lindy DO Work Phone: [facility] FB ORTHOPAEDICSStart: 05-18-2024 End: 13-41-6246ibqewocgzyPWOAD A HUDDLESTONNot AvailableStart: 05-18-2024 End: 94-92-8015Qlpfti flowsheetJames A Lindy DO Work Phone: [facility] ORTHOPAEDICSStart: 05-18-2024 End: 71-74-5193Cxxqpx flowsheetJames A Lindy DO Work Phone: [facility] ORTHOPAEDICSStart: 05-18-2024 End: 08-59-9340Viooxh outpatient new 30 minutesJames A Lindy DO Work Phone: noms FB ORTHOPAEDICSComment on above:Bilateral carpal tunnel syndrome (Primary Dx)Start: 08-16-2023 End: 57-36-2489hxkmgghrdfRLUIFOOSt. Charles Hospital HospitalStart: 12-01-2022 ambulatoryKIER CULLENFacility:L1Nfqfq: 43-07-4133lpfriiiiyyIYWDM D [facility] HOSPITALANDERFacility:H2Xmkcc: 03-72-8345lqgnbkpohwCTYDR D HIGHLANDERFacility:H1 Start: 08-28-2017 End: 62-12-3802Rhusadbic department patient visitCARL W [facility] Hospitaltart: 03-02-2017 End: 79-91-6126AzfyxvrxgvWJOEXTN PHYSICIANFacility:[facility]B Procedures DateProcedureProcedure DetailPerforming ClinicianHistory of decompression of median nerveS/P carpal tunnel releaseDustin Zuniga NP Work Phone: History of decompression of median nerveS/P carpal tunnel releaseDustin Zuniga NP Work Phone: History of decompression of median nerveS/P carpal tunnel releaseDustin Zuniga WEED INSPECTOR Work Phone: History of decompression of median nerveS/P carpal tunnel releaseDustin Zuniga WEED INSPECTOR Work Phone: Plan of Treatment DateCare ActivityDetailAuthorStart: 10-09-2024 End: 59-47-6781Caxlafv encounter zrkabhzkn17/20/2025 3:00 PM EST Office Visit [facility] [address] [place] [address] Dustin Zuniga, SIMÓN [address] [place] [address] [facility] FB ORTHOPAEDICSStart: 08-28-2024 End: 84-17-7737Ckrwbdk encounter procedureNOMS FB ORTHOPAEDICSComment on above: ArrivedStart: 08-03-2024 End: 12-24-7527Qxxpnla encounter /14/2024 2:30 PM EST Office Visit [facility] [address] [place] [phone] Dustin Zuniga, SIMÓN [address] [place] [address] [facility] ORTHOPAEDICSStart: 07-24-2024 End: 60-83-1837Indzwfz encounter wdyibfwef66/04/2024 10:30 AM EST Procedure Visit [facility] Janine Israel, DO [address] [place] [address] [facility] EXT DEPStart: 07-20-2024 End: 09-10-6188Hjtqpeb encounter ybsgwlzjp37/31/2024 2:45 PM EDT Office Visit [facility] [address] [place] [phone] Janine Israel, DO [address] [place] [address] [facility] ORTHOPAEDICSStart: 07-18-2024 End: 19-71-0171Ilsnhkz encounter /29/2024 2:30 PM EDT Office Visit [facility] [address] [place] [address] Lindy Janine RabiaDO [address] [place] [address] [facility] CI ORTHOPAEDICSStart: 07-10-2024 End: 15-12-3561Hilbwlq encounter axgldmobu64/21/2024 9:30 AM EDT Procedure Visit [facility] Janine Israel, DO [address] [place] [address] [facility] EXT DEPStart: 05-21-2024 Influenza vaccinationInfluenza Vaccine (#1)[facility] HealthcareStart: 1967 Screening for malignant neoplasm [facility]INTER[facility] Immunizations Immunization DateImmunizationNotesCare VxbwxmbeTitnknxq96-68-1763nazoesluk, injectable, quadrivalent, preservative freeJanine [place] DO Work Phone: [facility] HospitalOkucigqbtm12-72-9252obdbnzebk virus vaccine, unspecified formulationWills Eye Hospital DO Work Phone: [facility] HospitalJtxpuhuzvx64-51-0125symqhwlfk, injectable, quadrivalent, preservative freeJanine [place] DO Work Phone: [facility] HospitalDfcsnmkocn04-70-8950wyyejg vaccine recombinant Janine WolfeLindy DO Work Phone: [facility] HospitalAyizvhgagu33-67-7046ymolzehym, injectable, quadrivalent, preservative freeWills Eye Hospital DO Work Phone: [facility] HospitalRyhsiuzeun25-31-2878ljvzkka toxoid, reduced diphtheria toxoid, and acellular pertussis vaccine, adsorbedWills Eye Hospital DO Work Phone: [facility] HospitalXhtrtrmlqh15-83-5310pnelpg vaccine recombinant Janine Israel DO Work Phone: [facility] HospitalSbwyvkpuwn27-61-3136rjwjueyxw, seasonal, injectableJames Lindy DO Work Phone: [facility] HospitalXanipzajsm80-16-0027mxzrvlfqo, injectable, quadrivalent, preservative freeJanine Israel DO Work Phone: [facility] HospitalTfrxsneqbe12-08-5753uolzpqbco, injectable, quadrivalent, preservative freeJames Lindy DO Work Phone: noS[facility] Treatment CenterWtxrntcqdr67-40-2257fngwpntij, injectable, quadrivalent, preservative freeJanine Israel DO Work Phone: [facility] Payers DatePayer CategoryPayerPolicy [id number] Health InsuranceMEDICAL MUTUAL [id number] [id number] .1.125728.3.57[id number] .1.988242.3.57[id number] .1.831957.3.57[id number] 2.16840.1.127664.3.57[id number] 2.16840.1.264765.3.579.2.145315-06-4398Veatzag1000281 2.16840.1.120457.3.579.2.681736-64-6420Cdjwamz8537343 2.16840.1.687410.3.579.2.355516-99-0259Isyxrrd6719741 2.0.1.743875.3.579.2.960302-87-1838Abpqbxs2071514 2.0.1.367029.3.579.[id number] 2..1.074836.3.57[id number] 2.0.1.567741.3.57[id number] 2..1.873910.3.57[id number] 2.0.1.025640.3.57[id number] 2.0.1.671721.3.57[id number] 2.0.1.096927.3.579.2.[id number] 2.0.1.653439.3.579.2.94068-46-4002Urifxzy767150850 2.840.1.895200.3.579.[id number] 2.840.1.631533.3.57[id number] 2.16.0.1.670668.3.57[id number] 2.16.840.1.019522.3.57[id number] 2.16.840.1.788940.3.57[id number] Social History DateTypeDetailFacilityStart: 37-01-3671Hmttyby smoking status NHISNever smoked tobaccoINTERMOUNTAIN HEALTHCARE HealthcareStart: 37-76-2911Retvdnq use and exposureSmokeless tobacco non-userNOWA HealthcareStart: 05-18-2024 End: 78-84-1095Oonjdmqtm beverage intakeCurrent drinker of alcohol (finding)[facility] HealthcareStart: 05-18-2024 End: 48-19-8725Vzsfwbpzu beverage intakeNOWA HealthcareStart: 05-18-2024 End: 58-25-8796Kydwgpj use panelNOWA HealthcareStart: 36-84-4329[facility] at [facility] HealthcareStart: 70-29-3487Tbwnsr identityIdentifies as male gender (finding)[facility] Clinical Notes 05-18-2024 to 08-28-2024 Note Date & LgcdKxufVvzjxtom51-53-1044 History of Present illness Narrative* Dustin Zuniga NP - 08/28/2024 3:00 PM EST Images from the original note were not [...] has normal right wrist ROM. Muscle Strength Staffing Consultant: 4/5 Other Erythema: absent Scars: present (Well healed) Sensation: normal Pulse: present Comments: Left Hand Exam Tenderness Left hand tenderness location: tenderness over the incision. Range of Motion The patient has normal left wrist ROM. 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 Dustin Zuniga TRANSPORT ENGINEER-[employer]AD[employer] 7 AND [employer] TEACHER documented in this encounterSaint Luke's [id number] History of Present illness Narrative* Dustin Zuniga NP - 08/03/2024 2:30 PM EST Images from the original note were not [...] palmar area ([facility] Range of Motion The patient has normal [...] planes with 5 out of 5 strength. Radialand ulnar pulses were present and equal bilaterally postoperatively. Sensation to light touch was intact to all dermatomes to operative upper extremity postoperatively. Capillary refill was less than2 seconds postoperatively to operative upper extremity nailbeds. Compartments were soft to operative upper extremity postoperatively. Procedures IMAGING: ASSESSMENT: ICD-10-CM 1. S/P carpal tunnel release Z98.890 PLAN: 10 days s/p RT Carpal tunnel release: Plan: I reviewed Post Op care and instructions with the patient. No forceful gripping for 4 weeks from the date of surgery. Work on rom of fingers. use for lightactivities such as eating, keyboarding, writing and phone. Questions answered in laymen terms at the bedside. The diagnosis, home exercise plan and any ongoing restrictions/ recommendations reviewed.If unable to be reached in office, I recommend evaluation at nearest Emergency Room if any symptomsworsened or new symptoms develop for requiring urgent evaluation. Dustin Zuniga APRN-HOME TEACHING GRADES 7 AND 8 TEACHER documented in this encounterSaint Luke's [id number] Telephone encounter Note* Telephone Encounter - Dustin Zuniga NP - 07/31/2024 11:00 AM EST That is normal. The new skin that is healing underneath will push up and the skin will start to peel off. Try not to pick at it. [facility] Work Phone: [phone]) 783-829111-11-2024 Miscellaneous Notes* Telephone Encounter - Dustin Zuniga NP - 07/31/2024 11:00 AM EST That is normal. The new skin that is healing underneath will push up and the skin will start to peel off. Try not to pick at it. * Telephone Encounter - Alexandria Almanzar - 07/31/2024 10:14 AM EST Patient called stating that his incision is raising up. Had carpal tunnel surgery on 07/24. Stats its not hot to the touch. documented in this encounterSaint Luke's HospitalGytbtrmhvr40-13-6771 Telephone encounter Note* Telephone Encounter - Alexandria Almanzar - 07/31/2024 10:14 AM EST Patient called stating that his incision is raising up. Had carpal tunnel surgery on 07/24. Stats its not hot to the touch. [facility] HospitalKjlzgmfilq04-49-4296 Telephone encounter Note* Telephone Encounter - Dustin Zuniga NP - 07/21/2024 7:44 AM EDT Post op pain rx. PDMP reviewed [place] [id number] Miscellaneous Notes* Telephone Encounter - Dustin Zuniga NP - 07/21/2024 7:44 AM EDT Post op pain rx. PDMP reviewed documented in this encounterSaint Luke's HospitalKmdcuzibhx38-19-6640 History of Present illness Narrative* Dustin Zuniga, SIMÓN - 07/20/2024 2:45 PM EDT Images from the original note were not [...] uses it the worse it gets. Denies swelling.Good ROM. Denies issues gripping, denies dropping things. Prior treatment: PCP 2022, EMG at [facility] 08/10/23 LT handed 1st po x 10 days s/p LT CTR 07/10/24. Had lots of pain initially but has improved. Notes soreness now. Wearing janet wrap. Taking TYL. States N/T has greatly improved. Denies swelling. Does not wake at HS. Denies drainage. Stitches intact,removed today. Steri strips applied. Has already returned to work without issues. MEDICATION: Current Outpatient Medications on File Prior to Visit Medication Sig Dispense Refill allopurinol (Zyloprim) 100 MG tablet cholecalciferol (Vitamin D-3) 25 MCG (1000 UT) capsule TAKE 1 CAPSULE (125 MCG) ORALLY DAILY FOR 90DAYS lisinopril-hydroCHLOROthiazide 20-25 MG tablet Take 1 tablet [...] at the bedside. The diagnosis, home exercise planand any ongoing restrictions/ recommendations reviewed. If unable [...] examined the patient, I am acting as scribefor Dustin Zuniga CNP/ajd Dustin Zuniga TRANSPORT ENGINEER-HOME TEACHING GRADES 7 AND 8 TEACHER documented in this encounterSaint Luke's HospitalGopbejycuz77-10-1803 Telephone encounter Note* Telephone Encounter - Dustin Zuniga NP - 07/07/2024 10:06 AM EDT Post op pain rx. PDMP reviewed [facility] HospitalXdwsobzulb64-17-3213 Miscellaneous Notes* Telephone Encounter - Dustin Zuniga NP - 07/07/2024 10:06 AM EDT Post op pain rx. PDMP reviewed documented in this encounterSaint Luke's HospitalEbbcumhovc73-90-7744 History of Present illness Narrative* Eva Gonzalez RN - 06/15/2024 2:45 PM EDT Images from the original note were not [...] 1 CAPSULE (125 MCG) ORALLY DAILY FOR 90DAYS lisinopril-hydroCHLOROthiazide 20-25 MG tablet Take 1 tablet [...] Dr. Israel/errol Israel D.O. documented in this encounterSaint Luke's HospitalQsecucrxda33-16-8551 History of Present illness Narrative* Janine Israel, DO - 05/18/2024 2:00 PM EDT Images from the original note were not [...] 1 CAPSULE (125 MCG) ORALLY DAILY FOR 90DAYS lisinopril-hydroCHLOROthiazide 20-25 MG tablet Take 1 tablet [...] history and examined the patient, I am actingas scribe for Dr. Israel/errol Israel D.O. documented in this encounterNOWA HealthcareEvaluation note* Diagnosis Post-operative pain- Primary Other acute postoperative pain documented in this encounter [facility] HealthcareEvaluation note* Diagnosis Right carpal tunnel syndrome- [...] section and content) DATE CREATED AUTHOR 03/15/2018 [facility] DATE CREATED AUTHOR AUTHOR'S ORGANIZ ATION 03/16/2018 [facility] DATE CREATED AUTHOR AUTHOR'S ORGANIZ ATION 11/28/2022 [facility] DATE CREATED AUTHOR AUTHOR'S ORGANIZ ATION 09/17/2023 [facility] DATE CREATED AUTHOR AUTHOR'S ORGANIZ ATION 08/31/2024 [facility] DATE CREATED AUTHOR AUTHOR'S ORGANIZ ATION 07/26/2025 [facility] DATE CREATED AUTHOR AUTHOR'S ORGANIZ ATION 07/31/2025 [facility] Care Teams (unrecognized sec tion and content) Team MemberRelationshipSpecialtyStart DateEnd Date Dev Perla MD [address] [place] [address] 13626 PCP - GeneralFamily Medicine05/17/24Team MemberRelationshipSpecialtyStart DateEnd Date Dev Perla MD [address] [place] [phone] PCP - GeneralFamily Medicine05/17/24Team MemberRelationshipSpecialtyStart DateEnd Date Dev Perla MD [address] [place] [address] [phone] PCP - GeneralFamily Medicine05/17/24Team MemberRelationshipSpecialtyStart DateEnd Date Dev Perla MD [address] [place] [phone] [facility]05/17/24Team MemberRelationshipSpecialtyStart DateEnd Date Dev Perla MD [address] [place] [phone] PCP - [facility]05/17/24Team MemberRelationshipSpecialtyStart DateEnd Date Dev Perla MD [address] [place] [phone] [facility] - [facility]05/17/24Team MemberRelationshipSpecialtyStart DateEnd Date Dev Perla MD [address] [place] [address] 10088 [facility] - [facility]05/17/24Team MemberRelationshipSpecialtyStart DateEnd Date Dev Perla MD [address] [place] [address] 17592 [facility] - [facility]05/17/24Te MemberRelationshipSpecialtyStart DateEnd Date Dev Perla MD [address] [place] [address] 49354 PCP - [facility]05/17/24 Reason for Visit (unrecogniz ed section and content) BsmqxmKdjcairdZybp-uwUinkyvqwMpypvwywIudoceQkhqgsqtBxkl-npEquectZlkqtret Follow-upReasonCommentsPain FOR RECORDS PERTAINING TO PATIENTS WHO ARE [...] THE PRIMARY CLINICAL RECORDS. [facility] [employer] [facility]. provides no warranty or guarantee of the accuracy or completeness of information in this document.
--- OUTSIDE RECORDS SUMMARY | 2025-08-08 07:21 | XMS_ITS | Patient Health Record ---
Author Organization [facility] [employer] [facility] Address [address] [address], [place] [address] Care Team Providers Care Sole Assessor Name Role Phone Eli Santos Primary Care Provider Kyler Falcon Unavailable [phone] Allergies Allergen (clinical drug ingredient) Drug/Non Drug Allergy documented on EMR Reaction Allergy Type Onset Date Status cephalexin Cephalexin rash Drug Allergy Active Reason For Referral No Information Medications Medication SIG (Take, Route, Frequency, Duration) Notes Start Date End Date Status Allopurinol 100 MG Tablet Take 1 tablet( s) by mouth daily Oral; Duration: 90 Days ActivePitavastatin Calcium 4 MG TabletTAKE 1 TABLET DAILY Oral; Duration: 90 DaysActiveMetoprolol Succinate ER 50 MG Tablet Extended Release 24 HourTAKE ONE TABLET BY MOUTH DAILY Oral; Duration: 75 DaysActiveCholecalciferol-Vitamin C ActivetraMADol HCl 50 MG Tablet 1 tablet as needed Orally every 4 hours; Duration: 7 days As needed 5ActiveMeloxicam 15 MG TabletTAKE 1 TABLET BY MOUTH ONCE A DAY; Duration: 90ActivePregabalin 75 MG Capsule1 capsule Orally twice a day; Duration: 30 days5ActiveLisinopril-hydroCHLOROthiazide 20-25 MG Tablet take 1 tablet by oral route once daily Oral; Duration: 90 DaysActive Social History Section Notes: Patient is a nonsmoker. Social alcohol use. Patient is a nonsmoker. Social alcohol use. 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)Activeconfirmed Encounters Encounter Location Date Provider Diagnosis [facility] [employer] [facility] [address] [address], [place] [address] 02/19/2025 Kyler Caldera Arthritis of right ankle M19.071 and Encounter for other specified surgical aftercare Z48.89 [facility], [address] [address], [place] [address] 04/16/2025 Kyler Caldera Allergic contact dermatitis due to drugs in contact with skin L23.3 ; Cellulitis of right lower limb L03.115 ; Arthritis of right ankle M19.071 and 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 [facility], [address] [address], [place] [address] 05/04/2025 Kyler Caldera Arthritis of right ankle M19.071 and 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 [facility], [address] [address], [place] [address] 05/28/2025 Kyler Caldera Arthritis of right ankle M19.071 and 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 [address] [address], [place] [address] 06/22/2025 Kyler Caldera Arthritis of right ankle M19.071 ; 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 and Other osteonecrosis, right ankle M87.871 [facility], [address] [address], [place] [address] 02/16/2025 [facility], [address] [address], [place] [address] [address], [place] [address]/[address] [address], [place] [address]/09/2024[facility] Assessments Encounter Date Diagnosis (ICD Code) Assessment Notes Treatment Notes Treatment Clinical Notes Section Notes 02/19/2025 Encounter for other specified de la torre rgical aftercare (ICD-10 - Z48.89) Patient is concerned about potential revision surgery due to implant wear and previous infection risks. Patient is exploring non-surgical options to manage pain and maintain mobility. - Monitor pain management and mobility. - Consider physical therapy to improve strength and proprioception. - Discuss potential revision surgery options if necessary. 02/19/2025rthritis of right ankle (ICD-10 - M19.071) Patient reports worsening pain and swelling, particularly when standing for extended periods. Patient uses a brace twice weekly but is concerned about muscle loss. Patient manages pain with Ultram, Tylenol, and ibuprofen, expressing concerns about dependency and long-term effectiveness. - Consider oral anti-inflammatory options to manage pain and swelling. - Explore topical treatments for scar tissue and adhesions. Compound sent to [facility] - Continue using compression socks to alleviate swelling. - Explore different braces for comfort and support. 04/16/2025ellulitis of right lower limb (ICD-10 - L03.115)Sanjeev is on augmentin 875 mg and should continue as prescribed. I believe the superimposed infection should be closely monitored and may require dual antibiotic therapy but given the response subjectively and objectively (labs) I would like to hold off for now but he was encouraged to call later this week to give me an update to how he is doing. He should continue NWB for at least the next 48 hrs to allow swelling and inflammation to continue to subside. He does have pain medication left from the ER but he will call if he needs additional medication prior to his f/u. 04/16/2025llergic contact dermatitis due to drugs in contact with skin (ICD-10 - L23.3)Sanjeev developed allergic reaction to topical compound prescribed at last appointment and PCP also suggested systemic allergic reaction could be secondary to Lyrica therefore both were discontinued. Continue PO steroids, ice and elevation. Cover wounds (ruptured blisters) with band-aides and keep clean and dry.05/04/2025rthritis of right ankle (ICD-10 - M19.071) After consent was obtained the skin was prepped with alcohol. Ethyl chloride was used to alleviate pain from the injection then an injection consisting of _1_ cc of celestone was injected into the anterior ankle Patient tolerated the injection well and the site was dressed with a band-aide. Post-injection instructions were provided. 05/04/2025History of right ankle joint replacement (ICD-10 - Z96.661)05/28/2025 Arthritis of right ankle (ICD-10 - M19.071)Patient seen and evaluated. He has failed to respond to RICE therapy, NSAIDS (mobic), ankle bracing, massage therapy and remains to be limited on a daily basis. Given his history of infection I believe he would likely be a better canidate for fusion (rather than TAR). A CT scan was ordered today and he will f/u after this study is obtained 05/28/2025History of right ankle joint replacement (ICD-10 - Z96.661)06/22/2025 Arthritis of right ankle (ICD-10 - M19.071) Patient's symptoms have worsened over the last year. 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 Subsequently, he was happy with the outcome however over last year his pain and mobility have worsened. I ordered and reviewed CT scan of the ankle which demonstrates significant andvancment in DJD with subchondral cysts particularly of the tibial plafond. I had a long discussion with him regarding the possible risks and benefits of ankle replacement vs fusion. Due to the history of anterior incision dehisence and infection as well as relatively early failure of the total talus I believe he will be best treated with removal of the talar implant and fusion with 3D printed cage/spacer to preserve limb length and enhance fusion. Given pain I did prescribe Ultram as it will likely take at least 4-6 weeks to get implant approvedand manufactured. He should continue ice, rest and elevation as well as crutches as needed. 06/22/2025History of right ankle joint replacement (ICD-10 - Z96.661)06/22/2025 Other osteonecrosis, right ankle (ICD-10 - M87.871)04/16/2025rthritis of right ankle (ICD-10 - M19.071)His xrays obtained yesterday were reviewed in the ER and the total talus implant appears stable andlargely unchanged as compared to prior films. CT scan may be considered if he does not continue to progress in a positive manner.04/16/2025History of right ankle joint replacement (ICD-10 - Z96.661)04/16/2025OtherI spent 25 minutes in evaluation and management of Mr Blackburn with >50% spent in direct face toface contact with the patient. Time was spent reviewing both ER notes, labs and imaging. Plan Of Treatment No Information Insurance Providers Payer Name Payer Address Payer Phone Subscriber Number Group Number Insured Name Patient Relationship to Insured Coverage Start Date Coverage End Date Medical [place] [address] [place], [place] [id number] Alona Blackburn - patient is the spouse of the insured Medical (General) History Medical History History ICD Code High Blood Pressure High CholesterolSurgical History Surgery Date(Month/Year) Right Total Talus Replacement, Gastro Re cession, EPF 08/2023
--- OUTSIDE RECORDS SUMMARY | 2025-08-08 07:21 | XMS_ITS | Clinical Summary ---
Author Organization [facility] Address [address] [facility] [facility] [place] [address] Care Team Providers Care Clerical Adjudicator Name Role Phone Dev Ch MD Primary Care Provider [phone] Allergies Active AllergyReactionsCriticalityNoted DateCommentsCephalexinHivesHigh 2000 Medications MedicationSigDispense QuantityRefillsLast FilledStart DateEnd DateStatus traMADol (Ultram) 50 MG tablet 02/23/2024ctive Pitavastatin Calcium (Livalo) 4 MG tablet Active allopurinol (Zyloprim) 100 MG tablet Active cholecalciferol (Vitamin D-3) 25 MCG (1000 UT) capsule TAKE 1 CAPSULE (125 MCG) ORALLY DAILY FOR 90 DAYS09/10/2023ctive lisinopril-hydroCHLOROthiazide 20-25 MG tablet Take 1 tablet by mouth Daily03/13/2024ctive meloxicam (Mobic) 15 MG tablet 02/29/2024ctive metoprolol succinate XL (Toprol-XL) 50 MG 24 hr tablet Take 50 mg by mouth Daily03/21/2024ctive Active Problems ProblemNoted DateDiagnosed EantDvarbtwadhry41/28/2024Kidney stone05/17/2024nkle joint replacement status, right09/10/2023 Immunizations ImmunizationAdministration DatesNext DueInfluenza, injectable, quadrivalent, preservative free06/17/2023,06/23/2022,06/04/2021,06/03/2020,05/18/2019, 06/17/2018Influenza, seasonal, dzmbumwjvp56/25/0075Wnaj77/05/2021Zoster, Jhqcjwiidnq54/12/2021,02/22/2021 Social History Tobacco UseTypesPacks/DayYears UsedDateSmoking Tobacco: NeverSmokeless Tobacco: Never Tobacco Cessation:Counseling Given: Not Answered Alcohol UseStandard Drinks/WeekCommentsYes3 (1 standard drink = 0.6 oz pure alcohol)Sex and Gender InformationValueDate RecordedSex Assigned at BirthMale 2024 8:54 AM EDTLegal BihTihj9912/02/2022 7:35 PM EDTGender IdentityMale 2024 8:54 AM EDTSexual OrientationNot on file Last Filed Vital Signs Vital SignReadingTime TakenCommentsBlood Kphlcvze911/97554 12:00 PM EDT Pulse--Temperature--Respiratory Rate--Oxygen Saturation--Inhaled Oxygen Concentration--Excwfz365 kg (247 lb)06/15/2024 2:59 PM XHUCkhvay248.3 cm (5' 11 )06/15/2024 2:59 PM EDTBody Mass Index34.45006/15/2024 2:59 PM EDT Plan of Treatment Not on file Insurance Care Teams Team MemberRelationshipSpecialtyStart DateEnd Dev Ch MD [address] [place], [place] [id number] [facility]05/17/24
--- OUTSIDE RECORDS SUMMARY | 2025-08-08 07:21 | XMS_ITS | Clinical Summary ---
Author Organization [facility] Address [address], [address] [place] [address] Care Team Providers Care Ironworker Wire Fence Erector Name Role Phone Dev Ch Primary Care Provider Allergies Active AllergyReactionsCriticalityNoted DateCommentsCephalexinHivesHigh 08/28/2017 Medications MedicationSigDispense QuantityRefillsLast FilledStart DateEnd DateStatus pitavastatin (LIVALO) 4 MG TABS tablet Take 1 tablet by mouth nightlyActive allopurinol (ZYLOPRIM) 100 MG tablet Take 1 tablet by mouth dailyActive aspirin 81 MG tablet Take 1 tablet by mouth dailyActive vitamin D 1000 units CAPS Take 1 capsule by mouth dailyActive traMADol (ULTRAM) 50 MG tablet Take 0.5 tablets by mouth every 6 hours as needed for Pain.Active ondansetron (ZOFRAN) 4 MG tablet Take 1 tablet by mouth every 6 hours as needed for Nausea or VomitingActive METOPROLOL SUCCINATE ER PO Take by mouth dailyActive LISINOPRIL PO Take by mouth every eveningActive Social History Tobacco UseTypesPacks/DayYears UsedDateSmoking Tobacco: NeverSmokeless Tobacco: Never Tobacco Cessation:Counseling Given: Not Answered Alcohol UseStandard Drinks/WeekCommentsYes2 (1 standard drink = 0.6 oz pure alcohol)two drinks total/week.Interpersonal Safety Domain Source: IP Abuse ScreeningAnswerDate RecordedRead-Only, Retired: Physical CabtwFdrkcg39/27/2023 Read-Only, Retired: Verbal DsiggFhyrzn48/27/2023Read-Only, Retired: Emotional wdhgfSnxwdp95/27/2023Read-Only, Retired: Financial KhynfSiuqza76/27/2023Read- Only, Retired: Sexual joqhtCltsux85/27/2023Sex and Gender InformationValueDate RecordedSex Assigned at BirthNot on fileLegal BbdVmms5410/30/2012 8:36 PM EST Gender IdentityNot on fileSexual OrientationNot on file Last Filed Vital Signs Vital SignReadingTime TakenCommentsBlood Sjsttzjl954/8608/16/2023 6:15 PM EST Gklsg648608/16/2023 6:15 PM AVKDklatlvvrwj60 ??C (96.8 ??F)08/16/2023 6:15 PM EST Respiratory Uvwo387710/16/2022 6:15 PM ESTOxygen Bzrvhtyvsc16%08/16/2023 6:15 PM ESTInhaled Oxygen Concentration--Rqbyjt050.1 kg (245 lb)08/16/2023 1:32 PM EST Bcjhzv530.3 cm (5' 11 )08/16/2023 1:32 PM ESTBody Mass Index34.17110/16/2022 1:32 PM EST Plan of Treatment Health MaintenanceDue DateLast DoneCommentsDTaP/Tdap/Td vaccine (1 - Tdap) 1986Flu vaccine (#1)/OVID-19 Vaccine ( - season)2025Polio vaccineAged OutNo longer eligible based on patient's age to complete this topic Insurance Care Teams Team MemberRelationshipSpecialtyStart DateEnd Date Dev Ch DO [address] [place] [phone] PCP - GeneralFanjly Zlfwdtne18/9/17
--- OUTSIDE RECORDS SUMMARY | 2025-08-08 07:21 | XMS_ITS | Clinical Summary ---
Author Organization [employer] Address [id number] [address] [place] [address] Care Team Providers Care Explosives Worker Name Role Phone Unavailable Primary Care Provider Unavailabl e Social History Tobacco UseTypesPacks/DayYears UsedDateSmoking Tobacco: Never AssessedChildcare AnswerDate WtgvzcmvBaecdbskkLzvdfzl25/14/2021EmploymentAnswerDate Recorded RixfnuaucoJjpqnqe40/14/2021Purpose - LifeAnswerDate RecordedPurpose and direction in fcquTcjbhye54/14/2021Sex and Gender InformationValueDate Recorded Sex Assigned at BirthNot on fileLegal CefHzhr2404/23/2015 8:13 PM EDTGender IdentityNot on fileSexual OrientationNot on file Last Filed Vital Signs Vital SignReadingTime TakenCommentsBlood Pressure--Pulse--Temperature-- Respiratory Rate--Oxygen Saturation--Inhaled Oxygen Concentration--Efpfby391.3 kg (230 lb)10/28/2020 9:00 AM ESTHeight--Body Mass Index-- Plan of Treatment Health MaintenanceDue DateLast DoneCommentsDepression Wlhszeglb69/22/1979Tobacco Jxxpjkkfb94/22/1979Adult BMI Witupuixn10/22/1985DTaP,Tdap and Td Vaccines (1 - Tdap)1986Zoster (Shingles) Vaccine (1 of 2)2017Influenza Vaccine 05/21/2025 [employer] Devices Not on file Insurance MemberSubscriberPlan / Payer (Effective 2020-Present)Name:KimmySanjeev porter Rabia Relation to Subscriber:SpouseName:Peggy Blackburn Jocelyn Date of :1970 (Home) Address: [address] [place] [address] Payer ID:Not on file Type:Not on file Address: [facility] [address] [id number]
--- OUTSIDE RECORDS SUMMARY | 2025-08-08 07:22 | XMS_ITS | Patient Health Record ---
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 Name Role Phone Dev Ch DO Primary Care Provider Ros Armenta Unavailable [phone] Mulu Reyna Unavailable [phone] Allergies Allergen (clinical drug ingredient) Drug/Non Drug Allergy documented on EMR Reaction Allergy Type Onset Date Status KeflexhivesDrug AllergyActive Results Component Value Reference Range Notes XR ankle RT min 3V (Not yet reviewed by provider) Interpretation: Performing Lab: Notes/Report: Source Facility: [place] [address] XRay Report Signed Patient: SANJEEV BLACKBURN MR#: [id number] : 1965 Acct:[id number] Age/Sex: 59 / M ADM Date: 09/05/24 Loc: RAD Attending Dr: Ros Caldera D.P.M. Ordering Physician: Ros Caldera D.P.M. Date of Service: 09/05/24 Procedure(s): XR ankle RT min 3V Accession Number(s): [id number] cc: Ros Caldera D.P.M.; DEV CH [place] [address] Patient Name: SANJEEV BLACKBURN MRN: [facility]:[id number] date: 1965 Sex: M Assigned Patient Location: RAD Current Patient Location: Accession/Order Number: [id number] Exam Date: 09/05/2024 15:44 Report Date: 09/06/2024 [...] M.D. 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: Reason For Referral No Information Medications Medication SIG (Take, Route, Frequency, Duration) Notes Start Date End Date Status Tylenol 325 MG 1 tablet as needed Orally every 6 hrs ActiveVitamin DActiveMeloxicam 15 MG1 tablet Orally Once a day; Duration: 30 09/06/2024ctiveAllopurinol 100 MG1 tablet dailyActiveAspirin 81Active LisinoprilActiveLivaloActiveMeloxicam 15 MG1 tablet Orally Once a day; Duration: ctiveMetoprolol Succinate ER 25 MGOral; Duration: 30ActivetraMADol HCl 50 MG1 tablet as needed Orally every 4 hours; Duration: 08/15/2024 ActivetraMADol HCl 50 MG1-2 tablet as needed Orally every 8 hrs prn pain; Duration: 30 5ActivetraMADol HCl 50 MG1 tablet as needed Orally every 4 hours; Duration: 7 11/28/2024tivePregabalin 75 MG1 capsule Orally twice daily; Duration: 30 11/28/2024tive Social History Tobacco Use: Social History Observation Description Date Details (start date - stop date) Never Smoker NA - NA Tobacco Use/Smoking Question Answer Notes Patient is a nonsmoker Alcohol Screen (Audit-C) Question Answer Notes Did you have a drink containing alcohol in the p ast year? Yes How often did you have a drink containing alcohol in the past year?Weekly (3 points)Wvhuzr8GcpnvjjxzkvociKwyrciil Problems Problem Type SNOMED Code ICD Code Onset Dates Problem Status W/U Status Risk Notes Problem Malignant neoplasm o f prostate (497340416) Malignant neoplasm of prostate (C61) ActiveconfirmedProblemMononeuropathy of lower limb (439926537)Unspecified mononeuropathy of right lower limb (G57.91)ActiveconfirmedProblemLocalized, primary osteoarthritis of the ankle and/or foot (262650576)Primary osteoarthritis, right ankle and foot (M19.071)ActiveconfirmedProblemContracture of joint of right ankle (disorder) (940316040507488)Contracture, right ankle (M24.571)ActiveconfirmedProblemOther specified joint disorders, right ankle and foot (M25.871)ActiveconfirmedProblemOsteochondritis dissecans (16086654) Osteochondritis dissecans, right ankle and joints of right foot (M93.271)Active confirmedProblemDehiscence of surgical wound (04119140)Disruption of external operation (surgical) wound, not elsewhere classified, initial encounter (T81. 31XA)ActiveconfirmedProblemDehiscence of surgical wound (76725956)Disruption of external operation (surgical) wound, not elsewhere classified, subsequent encounter (T81.31XD)ActiveconfirmedProblemPresence of right artificial ankle joint (Z96.661)ActiveconfirmedProblemHypertension (43394069)Hypertension (I10) ActiveconfirmedProblemGout (57537259)Gout (M10.9)ActiveconfirmedProblemKidney stone (27041753)Kidney stone (N20.0)ActiveconfirmedProblemArthralgia of the ankle and/or foot (809620899)Right ankle pain (M25.571)ActiveconfirmedProblem Benign prostatic hypertrophy without outflow obstruction (537480379)Benign localized prostatic hyperplasia without lower urinary tract symptoms (LUTS) (N40.0)ActiveconfirmedProblemLeukocytosis (654504513)Elevated WBCs (D72.829) ActiveconfirmedProblemEssential hypertension (09148011)BP (high blood pressure) (I10)ActiveconfirmedProblemHigh cholesterol (96499830)High cholesterol (E78.00) ActiveconfirmedProblemArthritis of left ankle (5961442212354000)Arthritis of left ankle (M19.072)ActiveconfirmedProblemLocalized, primary osteoarthritis of the ankle and/or foot (656471085)Arthritis of ankle, right (M19.071)Active confirmedProblemArthritis of right ankle (5747572822681726)Arthritis of right ankle (M19.071)ActiveconfirmedProblemContracture of joint of right ankle (disorder) (818029535204444)Contracture of right ankle (M24.571)Activeconfirmed ProblemImpingement of right ankle joint (62182878680845382)Impingement of right ankle joint (M25.871)ActiveconfirmedProblemImaging result abnormal (893908413) Abnormal findings on diagnostic imaging of other specified body structures (R93.89)ActiveconfirmedProblemImpingement of left ankle joint (12989444485372255)Impingement of left ankle joint (M25.872)Activeconfirmed Vital Signs Heart Rate 79 /min 09/05/2024 Yrcvdlhckzn62.8 degrees Bztfaiuqoq81/17/1803Bkrakhun61 %09/05/20245564Zpzbho16 in 09/05/2024 Encounters Encounter Location Date Provider Diagnosis [facility] [address] [place] [address] 09/21/2024 Mulu Reyna [facility] [place] [address]/Peter HighlanderArthritis of right ankle M19.071[facility] [place] [place] [address]/07/2025Peter HighlanderArthritis of right ankle M19.071[facility] ([facility])[address] [place] [address]/eter HighlanderThe [facility] ([facility])[address] [place] [address] Arthritis of right ankle M19.071 ; Osteochondritis dissecans, right ankle and joints of right foot M93.271 ; Unspecified mononeuropathy of right lower limb G57.91 and Right ankle pain M25.571 Assessments Encounter Date Diagnosis (ICD Code) Assessment Notes Treatment Notes Treatment Clinical Notes Section Notes 11/06/2024 Arthritis of right ankle (ICD-10 - M19.071) 11/28/2024rthritis of right ankle (ICD-10 - M19.071)09/05/2024rthritis of right ankle (ICD-10 - M19.071)Patient seen and evaluated. Patient education provided and [...] planned.At follow-up I would like weightbearing ankle x-rays.09/05/2024Osteochondritis dissecans, right ankle and joints of right foot (ICD-10 - M93.271)09/05/2024Unspecified mononeuropathy of right lower limb (ICD-10 - G57.91)09/05/2024ight ankle pain (ICD-10 - M25.571) Plan Of Treatment Pending Test Test Name Order Date XR Ankle RT (3 views) * (161) 05/10/2024 XR Ankle RT (3 views) * (161) 09/05/2024 CT ABDOMEN/PELVIS STONE PROTOCOL 024 MRI Prostate w/wo contrast 10/03/2020 Short Leg Cast - IH 09/16/2023 PSA 03/10/2024 AFB Specimen Processing 12/17/2023 AFB Specimen Processing 01/13/2024 Acid Fast Smear 01/13/2024 Acid Fast Smear 12/17/2023 Acid Fast Culture 12/17/2023 Acid Fast Culture 01/13/2024 XR ankle RT min 3V 09/29/2023 XR ankle RT min 3V 09/06/2024 Fungus Stain 10/18/2023 Fungus Stain 01/13/2024 Fungus Stain 12/17/2023 Fungus (Mycology) Culture 10/18/2023 Future Test Test Name Order Date PSA, TOTAL 05/21/2024 PSA, TOTAL 11/13/2024 PSA, TOTAL 11/17/2024 Insurance Providers Payer Name Payer Address Payer Phone Subscriber Number Group Number Insured Name Patient Relationship to Insured Coverage Start Date Coverage End Date O [employer] P[employer] [address] [address] [place] [address] [id number] Sanjeev Blackburn Self - patient is the insured Medications Administered Medication Instructions Date of Administration Dosage Notes Betamethasone Acetate mLDEPO-Kwqycp99 mLDEPO-Qrzzex84 mL Medical (General) History Medical History History ICD Code kidney stones hypertensionhigh cholesterolElevated prostate specific antigen (PSA)R97.20 Infection of left ankle woundMalignant neoplasm of gzbzuhorC99Ktnwtcvg History Surgery Date(Month/Year) Left lateral ankle stabiliza tion (Brostrom) peroneal tendon repair and ankle arthroscopy 07/31/2016 [...] lateral gutter debridement, lateral ankle stabilization, modified jeannette 09/01/2019 Prostate fusion biopsy 08/16/23 right talectomy with total t alus replacement, gastrocnemius recession, endoscopic plantar fasciotomy Dr Caldera 09/10/23 right ankle I&D, NPWT application 024 right ankle delayed primary closure, allogenic skin substitute and NPWT 12/20/2023 right ankle delayed primary closure, allogenic skin substitute and NPWT 01/13/24 Hospitalization History Reason Date(Month/Year) see above
--- NOTE | 2025-08-08 08:42 | PC.NURSE ---
Patient tolerated Lexiscan test without problems. Denies symptoms. Left stress lab without issues.
[2025-08-08] MEDS: REGADENOSON 0.4 MG/5 ML SYRINGE IV (08:45)
--- NOTE | 2025-08-08 12:46 | P.STRESS_ITS ---
Stress Test Stress Test Allergies Allergy/AdvReac Type Severity Reaction Status Date / Time cephalexin (From Keflex) Allergy Hives Verified 05/08/25 19:15 pregabalin (From Lyrica) Allergy Rash Verified 05/08/25 19:15 Requesting physician: AMY GARCIA Procedure: Lexiscan pharmacological stress test General Information: Reason for Stress Test: [Preoperative evaluation] Cardiac History and Risk Factors: [Hypertension, dyslipidemia] Resting 12 - Lead Electrocardiogram: Normal sinus rhythm ST-T wave abnormality, consider inferior ischemia Abnormal ECG Stress Test: Protocol: [Lexiscan] Exercise Capacity: [N/A] Blood Pressure Response: [N/A] Rhythm: [Sinus] ST - Response: [No significant ST-T wave abnormalities] Patient Response: [No chest pain] Interpretation: 1. No significant changes on Lexiscan infusion in a patient with an abnormal re sting ECG 2. Nuclear images are to be read, interpreted, and reported separately
== END 2025-08-08 07:17 | disposition home or self-care (01) ==
LOC: NM 07:16
PROVIDERS: PCP Family Medicine; Visit Provider Nurse Practitioner Family
DX: R94.31 Abnormal electrocardiogram [ECG] [EKG] (principal); I10 Essential (primary) hypertension
CPT/HCPCS: 78452; 93017; A9500; J2785